=== PATIENT | male | born 1945 | race Caucasian/White ===

== ENCOUNTER 2023-05-04 12:59 | Outpatient (OUT) | payer MEDICARE, SELFPAY | END 2023-05-04 13:00 | LOC: WC 13:00 | PROVIDERS: PCP Family Medicine; Visit Provider Physician Assistant | DX: R60.0 Localized edema (principal); L97.321 Non-pressure chronic ulcer of left ankle limited to breakdown of skin; L97.512 Non-pressure chronic ulcer of other part of right foot with fat layer exposed; I87.2 Venous insufficiency (chronic) (peripheral); G82.22 Paraplegia, incomplete; Z99.81 Dependence on supplemental oxygen; Z99.3 Dependence on wheelchair; I10 Essential (primary) hypertension; E78.5 Hyperlipidemia, unspecified; L97.311 Non-pressure chronic ulcer of right ankle limited to breakdown of skin; L97.511 Non-pressure chronic ulcer of other part of right foot limited to breakdown of skin | CPT/HCPCS: 29580 ==

== ENCOUNTER 2023-06-08 10:40 | Outpatient (OUT) | payer MEDICARE, SELFPAY | END 2023-06-08 10:41 | disposition home or self-care (01) | LOC: WC 10:40 | PROVIDERS: PCP Family Medicine; Visit Provider Physician Assistant | DX: L97.311 Non-pressure chronic ulcer of right ankle limited to breakdown of skin (principal) | CPT/HCPCS: 29580 ==

== ENCOUNTER 2023-07-13 10:41 | Outpatient (OUT) | payer MEDICARE, SELFPAY | END 2023-07-13 10:42 | disposition home or self-care (01) | LOC: WC 10:42 | PROVIDERS: PCP Family Medicine; Visit Provider Physician Assistant | DX: L97.311 Non-pressure chronic ulcer of right ankle limited to breakdown of skin (principal); I87.312 Chronic venous hypertension (idiopathic) with ulcer of left lower extremity; L97.321 Non-pressure chronic ulcer of left ankle limited to breakdown of skin; L97.512 Non-pressure chronic ulcer of other part of right foot with fat layer exposed | CPT/HCPCS: 29580 ==

== ENCOUNTER 2023-08-11 11:26 | Outpatient (OUT) | payer MEDICARE, SELFPAY | END 2023-08-11 11:27 | disposition home or self-care (01) | LOC: WC 11:26 | PROVIDERS: PCP Family Medicine; Visit Provider Podiatrist Foot & Ankle Surgery | DX: I87.312 Chronic venous hypertension (idiopathic) with ulcer of left lower extremity (principal); L97.321 Non-pressure chronic ulcer of left ankle limited to breakdown of skin; L97.311 Non-pressure chronic ulcer of right ankle limited to breakdown of skin; L97.512 Non-pressure chronic ulcer of other part of right foot with fat layer exposed | CPT/HCPCS: 11042; 29580; A6199 ==

== ENCOUNTER 2023-09-07 15:29 | Outpatient (OUT) | payer MEDICARE, SELFPAY | END 2023-09-07 15:30 | disposition home or self-care (01) | LOC: WC 15:30 | PROVIDERS: PCP Family Medicine; Visit Provider Physician Assistant | DX: L97.311 Non-pressure chronic ulcer of right ankle limited to breakdown of skin (principal); R60.0 Localized edema; L97.321 Non-pressure chronic ulcer of left ankle limited to breakdown of skin; L97.512 Non-pressure chronic ulcer of other part of right foot with fat layer exposed | CPT/HCPCS: 29580 ==

== ENCOUNTER 2023-10-05 10:32 | Outpatient (OUT) | payer MEDICARE, SELFPAY | END 2023-10-05 10:33 | disposition home or self-care (01) | LOC: WC 10:32 | PROVIDERS: PCP Family Medicine; Visit Provider Physician Assistant | DX: I87.312 Chronic venous hypertension (idiopathic) with ulcer of left lower extremity (principal); L97.321 Non-pressure chronic ulcer of left ankle limited to breakdown of skin; L97.311 Non-pressure chronic ulcer of right ankle limited to breakdown of skin; L97.512 Non-pressure chronic ulcer of other part of right foot with fat layer exposed | CPT/HCPCS: 29580 ==

== ENCOUNTER 2023-11-02 11:03 | Outpatient (OUT) | payer MEDICARE, SELFPAY | END 2023-11-02 11:04 | disposition home or self-care (01) | LOC: WC 11:03 | PROVIDERS: PCP Family Medicine; Visit Provider Physician Assistant | DX: I87.312 Chronic venous hypertension (idiopathic) with ulcer of left lower extremity (principal); L97.321 Non-pressure chronic ulcer of left ankle limited to breakdown of skin; L97.311 Non-pressure chronic ulcer of right ankle limited to breakdown of skin; L97.512 Non-pressure chronic ulcer of other part of right foot with fat layer exposed; L89.621 Pressure ulcer of left heel, stage 1 | CPT/HCPCS: 29580 ==

== ENCOUNTER 2023-12-07 10:43 | Outpatient (OUT) | payer MEDICARE, SELFPAY ==
--- OUTSIDE RECORDS SUMMARY | 2023-12-07 10:55 | XMS_ITS | CCD ---
Author Name Unknown Address [address] [facility] [address] [place] [address] Organization [facility] Care Team Providers Care Senior Data Architect Name Role Phone SILVANA WETZEL Admitting Unavailable SILVANA WETZEL Attending Unavailable REQUEST, NONE LISTED Primary Care Unavaila ble DAMARI, SILVANA Chowdhury Admitting Unavailable HIGHLJESI, SILVANA Chowdhury Attending Unavailable REQUEST, DR BECERRIL LISTED Primary Care Unavaila ble DAMARI, SILVANA Chowdhury Admitting Unavailable DAMARI, SILVANA Chowdhury Attending Unavailable REQUEST, NONE LISTED Primary Care Unavaila brandon WETZEL, SILVANA Chowdhury Admitting Unavailable DAMARI, SILVANA Chowdhury Attending Unavailable REQUEST, NONE LISTED Primary Care Unavaila Eliel Christianson Consulting Unavailable HIGHLSILVANA DENNISON Consulting Unavailable SILVANA WETZEL Admitting Unavailable REQUEST, NONE LISTED Primary Care Unavaila ble DAMARI, SILVANA Chowdhury Attending Unavailable HIGHLJESI, SILVANA Chowdhury Attending Unavailable DAMARI, SILVANA Chowdhury Admitting Unavailable REQUEST, NONE LISTED Primary Care Unavaila brandon WETZEL, SILVANA Chowdhury Admitting Unavailable REQUEST, DR BECERRIL LISTED Primary Care Unavaila SILVANA Cobb Attending Unavailable TATO YANG Admitting Unavailable CELIATATO BALTAZAR Attending Unavailable MISC, DR RODRIGUEZ Primary Care Unavailable TATO YANG Consulting Unavailable SILVANA WETZEL Attending Unavailable SILVANA WETZEL Admitting Unavailable REQUEST, NONE LISTED Primary Care Unavaila ble DAMARI, SILVANA Chowdhury Admitting Unavailable REQUEST, NONE LISTED Primary Care Unavaila ble DAMARI, SILVANA Chowdhury Attending Unavailable HIGHLJESI, SILVANA Chowdhury Admitting Unavailable DAMARI, SILVANA Chowdhury Attending Unavailable REQUEST, NONE LISTED Primary Care Unavaila brandon WETZEL, SILVANA Chowdhury Admitting Unavailable REQUEST, NONE LISTED Primary Care Unavaila ble DAMARI, SILVANA Chowdhury Attending Unavailable DAMARI, SILVANA Chowdhury Attending Unavailable HIGHLJESI, SILVANA Chowdhury Admitting Unavailable REQUEST, NONE LISTED Primary Care Unavaila brandon WETZEL, SILVANA Chowdhury Attending Unavailable SILVANA WETZEL Admitting Unavailable REQUEST, NONE LISTED Primary Care Unavaila ble SILVANA WETZEL Attending SILVANA Govea Admitting Unavailable REQUEST, NONE LISTED Primary Care SILVANA Buck Attending SILVANA Govea Admitting Unavailable REQUEST, NONE LISTED Primary Care Popeye taylor Allergies Allergy Classification Reported Allergen(s) Allergy Type Date of Onset Reaction(s) Facility (2 sources) Adhesive agent Drug allergy (disorder) [facility] [place] Repository Problems Active Problems Problem Classification Problem Date Documented Da te Episodic/Chronic Chronic ulcer of skin (16 sources) Non-pressure chronic ulcer of left ankle limited to breakdown of skin; Translations: [Non-pressure chronic ulcer of other part of right foot with fat layer exposed] Onset: 05-05-2022 Chronic Disorders of lipid metabolism (1 source) Mixed hyperlipidemia; Translations: [MIXED HYPERLIPIDEMIA] Onset: 01-23-2023 Chronic Essential hypertension (1 source) Essential (primary) hypertension; Translations: [ESSENTIAL PRIMARY HYPERTENSION] Onset: 01-23-2023 Chronic Other diseases of veins and lymphatics (1 source) Chronic venous hypertension (idiopathic) with ulcer of left lower extremity; Translations: [CHRON VENOUS HTN W/ULCER LT LW EXT] Onset: 03-25-2023 Chronic Other diseases of veins and lymphatics (1 source) Venous insufficiency (chronic) (peripheral); Translations: [VENOUS INSUFF CHRONIC PERIPHERAL] Onset: 01-23-2023 Episodic Paralysis (1 source) Paraplegia, incomplete; Translations: [PARAPLEGIA INCOMPLETE] Onset: 01-23-2023 Chronic Peripheral and visceral atherosclerosis (1 source) Peripheral vascular disease, unspecified; Translations: [PERIPHERAL VASCULAR DISEASE UNS] Onset: 01-04-2023 Chronic Residual codes; unclassified (1 source) Dependence on wheelchair; Translations: [DEPENDENCE ON WHEELCHAIR] Onset: 01-23-2023 Chronic Residual codes; unclassified (5 sources) Localized edema; Translations: [LOCALIZED EDEMA] Onset: 01-23-2023 Episodic Respiratory failure; insufficiency; arrest (adult) (1 source) Dependence on supplemental oxygen; Translations: [DEPENDENCE ON SUPPLEMENTAL OXYGEN] Onset: 11-06-2022 Chronic Past or Other Problems Problem Classification Problem Date Documented Da te Episodic/Chronic Other circulatory disease (4 sources) Other specified symptoms and signs involving the circulatory and respiratory systems; Translations: [OTH SPEC SX SIGNS INVLV CIRC RS] Onset: 01-01-2023 Episodic Other connective tissue disease (1 source) Pain in right foot; Translations: [PAIN IN RIGHT FOOT] Onset: 06-05-2022 Episodic Other skin disorders (1 source) Personal history of diseases of the skin and subcutaneous tissue; Translations: [PERS HX DZ SKIN AND SUBCUTANEOUS TISSUE] Onset: 11-06-2022 Episodic Encounters Encounter Date Encounter Type Care Provider Facility Start: 04-07-2023 End: 04-08-2023 ambulatory SILVANA D HIGHLANDER Facility:[facility] Start: 03-16-2023 End: 03-17-2023 ambulatory PETER D HIGHLANDER Facility:[facility] Start: 02-13-2023 End: 02-14-2023 ambulatory SILVANA D HIGHLANDER Facility:[facility] Start: 01-12-2023 End: 01-13-2023 ambulatory PETER D HIGHLANDER Facility:[facility] Start: 01-01-2023 End: 01-02-2023 ambulatory TATO YANG Facility:[facility] Start: 12-22-2022 End: 12-23-2022 ambulatory SILVANA D HIGHLANDER Facility:[facility] Start: 11-17-2022 End: 11-18-2022 ambulatory PETER D HIGHLANDER Facility:[facility] Start: 10-21-2022 End: 10-22-2022 ambulatory PETER D HIGHLANDER Facility:[facility] Start: 09-30-2022 End: 10-01-2022 ambulatory PETER D HIGHLANDER Facility:[facility] Start: 09-08-2022 End: 09-09-2022 ambulatory PETER D HIGHLANDER Facility:[facility] Start: 08-12-2022 End: 08-13-2022 ambulatory PETER D HIGHLANDER Facility:[facility] Start: 07-29-2022 End: 07-30-2022 ambulatory PETER D HIGHLANDER Facility:[facility] Start: 07-18-2022 End: 07-19-2022 ambulatory PETER D HIGHLANDER Facility:[facility] Start: 06-17-2022 End: 06-18-2022 ambulatory PETER D HIGHLANDER Facility:[facility] Start: 05-26-2022 End: 05-27-2022 ambulatory PETER D HIGHLANDER Facility:[facility] Start: 05-05-2022 End: 05-06-2022 ambulatory PETER D HIGHLANDER Facility:[facility] Payers Date Payer Category Payer Unknown [id number] 1945 Unknown [id number] 2.16.84 [id number] 1945 Unknown [id number] 2.16.84 [id number] 1945 Unknown [id number] 2.16.84 0.1.164388.3.579.2.593 1945 Unknown [id number] 2.16.84 0.1.947938.3.579.2.593 1945 Unknown [id number] 2.16.84 0.1.462271.3.579.2.593 1945 Unknown [id number] 2.16.84 0.1.317991.3.579.2.593 1945 Unknown [id number] 2.16.84 0.1.405090.3.579.2.593 1945 Unknown [id number] 2.16.84 0.1.722569.3.579.2.593 1945 Unknown [id number] 2.16.84 0.1.309971.3.579.2.593 1945 Unknown [id number] 2.16.84 0.1.553051.3.579.2.593 1945 Unknown [id number] 2.16.84 0.1.877712.3.579.2.593 1945 Unknown [id number] 2.16.84 0.1.732634.3.579.2.593 1945 Unknown [id number] 2.16.84 0.1.913594.3.579.2.593 1945 Unknown [id number] 2.16.84 0.1.964760.3.579.2.593 1945 Unknown [id number] 2.16.84 0.1.583163.3.579.2.593 1945 Unknown [id number] 2.16.84 0.1.241451.3.579.2.593 Clinical Note 05-27-2022 Note Date & Type Note Facility 05-27-2022 Note PROCEDURE: XR FOOT R T MIN 3 VIEWS COMPARISON: 06/10/2021 HISTORY: Pain in right foot FINDINGS: BONES:Interval amputation of the second toe at the metatarsophalangeal joint. There is been marked interval progression of a permeative appearance of the visualized bones. Enthesopathic spurring of the calcaneus. SOFT TISSUES:Diffuse soft tissue swelling. EFFUSION:None visible. OTHER: Negative. 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 This clinical summary was aggregated from multiple sources. Caution should be exercised in using it in the provision of clinical care. This summary normalizes information from multiple sources, and as a consequence, information in this document may materially change the coding, format and clinical context of patient data. In addition, data may be omitted in some cases. CLINICAL DECISIONS SHOULD BE BASED ON THE PRIMARY CLINICAL RECORDS. [facility] [email or web address] provides no warranty or guarantee of the accuracy or completeness of information in this document.
== END 2023-12-07 10:44 | disposition home or self-care (01) ==
LOC: WC 10:44
PROVIDERS: PCP Family Medicine; Visit Provider Physician Assistant
DX: L97.321 Non-pressure chronic ulcer of left ankle limited to breakdown of skin (principal); L97.311 Non-pressure chronic ulcer of right ankle limited to breakdown of skin; L97.512 Non-pressure chronic ulcer of other part of right foot with fat layer exposed
CPT/HCPCS: 29580

== ENCOUNTER 2024-01-04 11:19 | Outpatient (OUT) | payer MEDICARE, SELFPAY ==
--- NOTE | 2024-01-04 | XR_ITS ---
The [address] [address] Patient Name: ELPIDIO LEI MRN: [id number] date: 1945 Sex: M Assigned Patient Location: Current Patient Location: Accession/Order Number: [id number] Exam Date: 01/04/2024 11:45 Report Date: 01/05/2024 10:39 At the request of: TATO YANG Procedure: XR ankle RT min 3V PROCEDURE: XR ankle RT min 3V HISTORY: RIGHT ANKLE PAIN ; wound on lateral side of right ankle COMPARISON: XR ankle bilateral 04/02/2021 FINDINGS: BONES:No fracture, dislocation, cortical destruction, or periosteal reaction. SOFT TISSUES:Mild soft tissue swelling surrounding the ankle. EFFUSION:None visible. OTHER: Negative. XR/XR ankle RT min 3V IMPRESSION: 1. Stable degenerative changes. 2. No acute abnormality or suspicious findings to suggest osteomyelitis. Electronically authenticated by: FRIEDA SCHMIDT Date: 01/05/2024 10:39
--- OUTSIDE RECORDS SUMMARY | 2024-01-04 11:24 | XMS_ITS | CCD ---
Author Name Unknown Address [address] [place] [id number] Organization [facility] Care Team Providers Care Garment Sewer Hand Name Role Phone SILVANA WETZEL Admitting Unavailable SILVANA WETZEL Attending Unavailable REQUEST, NONE LISTED Primary Care Unavaila ble DAMARI, SILVANA Chowdhury Admitting Unavailable DAMARI, SILVANA Chowdhury Attending Unavailable REQUEST, NONE LISTED Primary Care Unavaila brandon WETZEL, SILVANA Chowdhury Admitting Unavailable DAMARI, SILVANA Chowdhury Attending Unavailable REQUEST, NONE LISTED Primary Care Unavaila brandon WETZEL, SILVANA Chowdhury Admitting Unavailable HIGHLJESI, SILVANA Chowdhury Attending Unavailable REQUEST, NONE LISTED Primary Care Unavaila Eliel Christianson Consulting Unavailable HIGHLJESI, SILVANA Chowdhury Consulting Unavailable DAMARI, SILVANA Chowdhury Admitting Unavailable REQUEST, NONE LISTED Primary Care Unavaila brandon WETZEL, SILVANA Chowdhury Attending Unavailable DAMARI, SILVANA Chowdhury Attending Unavailable DAMARI, SILVANA Chowdhury Admitting Unavailable REQUEST, NONE LISTED Primary Care Unavaila brandon WETZEL, SILVANA Chowdhury Admitting Unavailable REQUEST, NONE LISTED Primary Care Unavaila SILVANA Cobb Attending Unavailable TATO YANG Admitting Unavailable TATO YANG Attending Unavailable MISC, DR RODRIGUEZ Primary Care Unavailable TATO YANG Consulting Unavailable SILVANA WETZEL Attending Unavailable SILVANA WETZEL Admitting Unavailable REQUEST, NONE LISTED Primary Care Unavaila brandon WETZEL, SILVANA Chowdhury Admitting Unavailable REQUEST, NONE LISTED Primary Care Unavaila brandon WETZEL, SILVANA Chowdhury Attending Unavailable DAMARI, SILVANA Chowdhury Admitting Unavailable ADMARI, SILVANA Chowdhury Attending Unavailable REQUEST, NONE LISTED Primary Care Unavaila brandon WETZEL, SILVANA Chowdhury Admitting Unavailable REQUEST, NONE LISTED Primary Care Unavaila ble DAMARI, SILVANA Chowdhury Attending Unavailable DAMARI, SILVANA Chowdhury Attending Unavailable HIGHLJESI, SILVANA Chowdhury Admitting Unavailable REQUEST, NONE LISTED Primary Care Unavaila SILVANA Cobb Attending Unavailable SILVANA WETZEL Admitting Unavailable REQUEST, NONE LISTED Primary Care SILVANA Buck Attending SILVANA Govea Admitting Unavailable REQUEST, NONE LISTED Primary Care SILVANA Buck Attending Unavailable SILVANA WETZEL Admitting Unavailable REQUEST, NONE LISTED Primary Care Popeye Cole MD, Ines Primary Care Provider João CRUZ, Suzi Unavailable Allergies Allergy Classification Reported Allergen(s) Allergy Type Date of Onset Reaction(s) Facility (2 sources) Adhesive agent Drug allergy (disorder) [facility] Repository Medications Current Medications Medication Drug Class(es) Dates Sig (Normalized) Sig (Original) amLODIPine 5 mg oral tablet (1 source) Dihydropyridine Calcium Channel Sara Start: 08-21-2023 take 1 tablet by mouth once daily amLODIPine (Norvasc) 5 MG tablet Indications: Primary hypertension (CMS/HCC) TAKE ONE TABLET BY MOUTH DAILY 90 tablet 2 08/21/2023 Active ascorbic acid 250 mg chewable tablet (1 source) Vitamin C ascorbic acid (Vitamin C) 250 MG chewable tablet 1 (one) time each day at the same time. 0 Active aspirin 81 mg delayed release oral tablet (1 source) Platelet Aggregation Inhibitor, Nonsteroidal Anti-inflammatory Drug aspirin 81 MG EC tablet 1 (one) time each day at the same time. 0 Active carvedilol 6.25 mg oral tablet (1 source) alpha-Adrenergic Sara, beta-Adrenergic Sara Start: 11-24-2023 take 1 tablet by mouth twice daily carvedilol (Coreg) 6.25 MG tablet Indications: Primary hypertension (CMS/HCC) TAKE ONE TABLET BY MOUTH TWICE A DAY 180 tablet 3 11/24/2023 Active citalopram 40 mg oral tablet (1 source) Serotonin Reuptake Inhibitor Start: 08-21-2023 take 1 tablet by mouth once daily citalopram (CeleXA) 40 MG tablet Indications: 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) TAKE ONE TABLET BY MOUTH DAILY 90 tablet 2 08/21/2023 Active collagenase 0.25 unt/mg topical ointment (1 source) Collagen-specific Enzyme Start: 06-05-2022 Santyl 250 UNIT/GM ointment ferrous sulfate 325 mg oral tablet (1 source) Start: 08-31-2023 take 1 tablet by mouth once daily ferrous sulfate (FeroSul) 325 (65 Fe) MG tablet Indications: 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 TAKE ONE TABLET BY MOUTH DAILY 90 tablet 3 08/31/2023 Active furosemide 20 mg oral tablet (1 source) Loop Diuretic Start: 08-21-2023 take 2 tablets by mouth once daily furosemide (Lasix) 20 MG tablet Indications: Acute bilateral venous stasis dermatitis TAKE TWO TABLETS BY MOUTH DAILY 180 tablet 2 08/21/2023 Active ibuprofen 200 mg oral tablet (1 source) Nonsteroidal Anti-inflammatory Drug take 1 tablet by mouth once daily at mealtime as needed ibuprofen 200 MG tablet 1 tablet with food or milk as needed Orally pt taking daily 0 Active Multiple Vitamin (MULTIVITAMIN ADULT PO) (1 source) Multiple Vitamin (MULTIVITAMIN ADULT PO) 1 (one) time each day at the same time. 0 Active omeprazole 40 mg delayed release oral capsule (1 source) Proton Pump Inhibitor Start: 08-21-2023 omeprazole (PriLOSEC) [address] capsule Indications: Gastroesophageal reflux disease, unspecified whether esophagitis present TAKE ONE CAPSULE BY MOUTH DAILY 30 MINUTES BEFORE MORNING MEAL 90 capsule 2 08/21/2023 Active potassium chloride 20 meq extended release oral tablet (1 source) Start: 08-31-2023 take 1 tablet by mouth once daily at mealtime potassium chloride CR (K-Tab) 20 MEQ ER tablet Indications: Hypokalemia TAKE ONE TABLET BY MOUTH DAILY WITH FOOD 90 tablet 3 08/31/2023 Active rosuvastatin calcium 10 mg oral tablet (1 source) HMG-CoA Reductase Inhibitor Start: 03-03-2023 rosuvastatin (Crestor) 10 MG tablet 1 (one) time each day at the same time. 0 03/03/2023 Active zinc gluconate 50 mg oral tablet (1 source) zinc gluconate 5 0 MG tablet 1 (one) time each day at the same time. 0 Active Problems Active Problems Problem Classification Problem Date Documented Date Episodic/Chronic Chronic ulcer of skin (20 sources) Non-pressure chronic ulcer of left ankle limited to breakdown of skin; Translations: [Non-pressure chronic ulcer of other part of right foot with fat layer exposed] Onset: 05-05-2022 Chronic Coronary atherosclerosis and other heart disease (1 source) Coronary arteriosclerosis; Translations: [Atherosclerotic heart disease of [place] coronary artery without angina pectoris] Onset: 06-08-2023 06-08-2023 Chronic Deficiency and other anemia (1 source) Pancytopenia; Translations: [Other pancytopenia] Onset: 06-08-2023 06-08-2023 Chronic Disorders of lipid metabolism (2 sources) Mixed hyperlipidemia; Translations: [Mixed hyperlipidemia] Onset: 01-23-2023 06-08-2023 Chronic Esophageal disorders (1 source) Gastroesophageal reflux disease; Translations: [Gastro-esophageal reflux disease without esophagitis] Onset: 06-08-2023 06-08-2023 Chronic Essential hypertension (2 sources) Essential (primary) hypertension; Translations: [Essential hypertension] Onset: 01-23-2023 08-26-2023 Chronic Mood disorders (2 sources) Recurrent major depressive episodes, mild ; Translations: [Major depressive disorder, recurrent, mild] Onset: 06-08-2023 06-08-2023 Chronic Open wounds of extremities (1 source) Amputated toe of right foot; Translations: [Complete traumatic amputation of one right lesser toe, initial encounter] Onset: 06-08-2023 06-08-2023 Chronic Other acquired deformities (1 source) Acquired scoliosis; Translations: [Other secondary scoliosis, thoracolumbar region] Onset: 06-08-2023 06-08-2023 Chronic Other diseases of bladder and urethra (1 source) Neurogenic bladder; Translations: [Neuromuscular dysfunction of bladder, unspecified] Onset: 06-08-2023 06-08-2023 Chronic Other diseases of veins and lymphatics (1 source) Chronic venous hypertension (idiopathic) with ulcer of left lower extremity; Translations: [CHRON VENOUS HTN W/ULCER LT LW EXT] Onset: 03-25-2023 Chronic Other diseases of veins and lymphatics (1 source) Venous ulcer of lower extremity due to chronic peripheral venous hypertension; Translations: [Chronic venous hypertension (idiopathic) with ulcer of unspecified lower extremity] Onset: 08-26-2023 08-26-2023 Chronic Other diseases of veins and lymphatics (1 source) Venous insufficiency (chronic) (peripheral); Translations: [VENOUS INSUFF CHRONIC PERIPHERAL] Onset: 01-23-2023 Episodic Other nutritional; endocrine; and metabolic disorders (1 source) Obese class I; Translations: [Obesity, unspecified] Onset: 06-08-2023 06-08-2023 Chronic Other nutritional; endocrine; and metabolic disorders (1 source) Alveolar hypoventilation; Translations: [Morbid (severe) obesity with alveolar hypoventilation] Onset: 02-11-2018 08-26-2023 Chronic Paralysis (3 sources) Paraplegia, incomplete; 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] Onset: 01-23-2023 06-08-2023 Chronic Peripheral and visceral atherosclerosis (1 source) Peripheral vascular disease, unspecified; Translations: [PERIPHERAL VASCULAR DISEASE UNS] Onset: 01-04-2023 Chronic Residual codes; unclassified (1 source) Dependence on wheelchair; Translations: [DEPENDENCE ON WHEELCHAIR] Onset: 01-23-2023 Chronic Residual codes; unclassified (1 source) 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; Translations: [Dependence on other enabling machines and devices] Onset: 06-08-2023 06-08-2023 Chronic Residual codes; unclassified (1 source) Dependence on wheelchair; Translations: [Dependence on wheelchair] Onset: 06-08-2023 06-08-2023 Chronic Residual codes; unclassified (1 source) Obstructive sleep apnea syndrome; Translations: [Obstructive sleep apnea (adult) (pediatric)] Onset: 06-08-2023 06-08-2023 Chronic Residual codes; unclassified (5 sources) Localized edema; Translations: [LOCALIZED EDEMA] Onset: 01-23-2023 Episodic Respiratory failure; insufficiency; arrest (adult) (3 sources) Dependence on supplemental oxygen; Translations: [Chronic hypoxemic respiratory failure] Onset: 11-06-2022 06-08-2023 Chronic Past or Other Problems Problem Classification Problem Date Documented Da te Episodic/Chronic Deficiency and other anemia (1 source) 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; Translations: [Other iron deficiency anemias] Onset: 06-08-2023 06-08-2023 Episodic Nutritional deficiencies (1 source) Iron deficiency; Translations: [Iron deficiency] Onset: 09-14-2014 08-26-2023 Episodic Other bone disease and musculoskeletal deformities (1 source) Osteopenia; Translations: [Other specified disorders of bone density and structure, multiple sites] Onset: 06-08-2023 06-08-2023 Episodic Other circulatory disease (4 sources) Other specified symptoms and signs involving the circulatory and respiratory systems; Translations: [OTH SPEC SX SIGNS INVLV CIRC RS] Onset: 01-01-2023 Episodic Other connective tissue disease (1 source) Pain in right foot; Translations: [PAIN IN RIGHT FOOT] Onset: 06-05-2022 Episodic Other diseases of veins and lymphatics (1 source) Stasis dermatitis; Translations: [Venous insufficiency (chronic) (peripheral)] Onset: 06-08-2023 06-08-2023 Episodic Other diseases of veins and lymphatics (1 source) Peripheral venous insufficiency; Translations: [Venous insufficiency (chronic) (peripheral)] Onset: 06-08-2023 06-08-2023 Episodic Other lower respiratory disease (1 source) Chronic respiratory insufficiency; Translations: [Other abnormalities of breathing] Onset: 06-08-2023 06-08-2023 Episodic Other lower respiratory disease (1 source) Restrictive lung disease; Translations: [Other disorders of lung] Onset: 06-08-2023 06-08-2023 Episodic Other nervous system disorders (1 source) Impaired cognition; Translations: [Other symptoms and signs involving cognitive functions and awareness] Onset: 06-08-2023 06-08-2023 Episodic Other nervous system disorders (1 source) Myoneural disorder; Translations: [Myoneural disorder, unspecified] Onset: 02-11-2018 08-26-2023 Episodic Other skin disorders (1 source) Personal history of diseases of the skin and subcutaneous tissue; Translations: [PERS HX DZ SKIN AND SUBCUTANEOUS TISSUE] Onset: 11-06-2022 Episodic Residual codes; unclassified (1 source) Edema; Translations: [Edema, unspecified] Onset: 08-26-2023 08-26-2023 Episodic Skin and subcutaneous tissue infections (1 source) Cellulitis of right lower limb; Translations: [Cellulitis of right lower limb] Onset: 12-05-2020 08-26-2023 Episodic Varicose veins of lower extremity (1 source) Venous stasis ulcer with edema of left lower leg; Translations: [Varicose veins of left lower extremity with ulcer of unspecified site] Onset: 10-06-2018 08-26-2023 Episodic Encounters Encounter Date Encounter Type Care Provider Facility Start: 01-01-2024 Telephone encounter Suzi pierre NP Work Phone: [facility] Start: 04-07-2023 End: 04-08-2023 ambulatory PETER D HIGHLANDER Facility:[facility] Start: 03-16-2023 End: 03-17-2023 ambulatory PETER D HIGHLANDER Facility:[facility] Start: 02-13-2023 End: 02-14-2023 ambulatory PETER D HIGHLANDER Facility:[facility] Start: 01-12-2023 End: 01-13-2023 ambulatory PETER D HIGHLANDER Facility:[facility] Start: 01-01-2023 End: 01-02-2023 ambulatory TATO YANG Facility:[facility] Start: 12-22-2022 End: 12-23-2022 ambulatory PETER D HIGHLANDER Facility:[facility] Start: 11-17-2022 End: 11-18-2022 [...] HIGHLANDER Facility:[facility] Start: 05-05-2022 End: 05-06-2022 ambulatory SILVANA D HIGHLANDER Facility:[facility] Procedures Date Procedure Procedure Detail Performing Clinician Start: 06-08-2023 H/O: colostomy Colostomy status Cassandra Moyer NP Work Phone: Plan of Treatment Date Care Activity Detail Author Start: 02-26-2024 Medicare Annual Well ness (AWV) Medicare Annual Wellness (AWV) [facility] Start: 02-23-2024 End: 02-23-2024 Patient encounter procedure 02/23/2024 1:00 PM EDT Office Visit [facility] [address] [facility] [place] [address] Suzi Moyer, AUTOMOTIVE BRAKE ADJUSTER [address] [place] [address] [facility] Immunizations Immunization Date Immunization Notes Care Provider Fa cility 08-26-2023 Influenza, High-dose Seasonal, Quadrivalent, Preservative Free Suzi Kampfer AUTOMOTIVE BRAKE ADJUSTER Work Phone: [facility] 08-27-2022 Influenza, High-dose Seasonal, Quadrivalent, Preservative Free Suzi Kampfer AUTOMOTIVE BRAKE ADJUSTER Work Phone: [facility] 08-27-2021 Influenza, High-dose Seasonal, Quadrivalent, Preservative Free Suzi Kampfer AUTOMOTIVE BRAKE ADJUSTER Work Phone: [facility] 11-22-2020 influenza, injectabl e, quadrivalent, contains preservative Suzi Kampfer AUTOMOTIVE BRAKE ADJUSTER Work Phone: [facility] 09-26-2019 Influenza, High-dose Seasonal, Quadrivalent, Preservative Free Suzi Kampfer AUTOMOTIVE BRAKE ADJUSTER Work Phone: [facility] 09-06-2018 Influenza, High-dose Seasonal, Quadrivalent, Preservative Free Suzi Kampfer AUTOMOTIVE BRAKE ADJUSTER Work Phone: [facility] Work Phone: 09-21-2017 Influenza, High-dose Seasonal, Quadrivalent, Preservative Free Suzi Kampfer AUTOMOTIVE BRAKE ADJUSTER Work Phone: [facility] 09-15-2016 Influenza, High-dose Seasonal, Quadrivalent, Preservative Free Suzi Kampfer AUTOMOTIVE BRAKE ADJUSTER Work Phone: [facility] 05-01-2016 pneumococcal polysaccharide vaccine, 23 valent Suzi Kampfer AUTOMOTIVE BRAKE ADJUSTER Work Phone: [facility] 09-10-2015 pneumococcal conjuga te vaccine, 13 valent Suzi Kampfer AUTOMOTIVE BRAKE ADJUSTER Work Phone: [facility] 11-30-2005 pneumococcal polysaccharide vaccine, 23 valent Suzi Kampfer AUTOMOTIVE BRAKE ADJUSTER Work Phone: [facility] Payers Date Payer Category Payer Medicare [employer] [id number] 2018-Present [address] [place] [address] [id number] 1959 Unknown [id number] 1945 Unknown [id number] 3 1947 Unknown [id number] [id number] 3 1945 Unknown [id number] [id number] 3 1947 Unknown [id number] [id number] 3 1947 Unknown [id number] [id number] 3 1945 Unknown [id number] 2.16.840.1.099864.3.579.2.59 3 1947 Unknown [id number] 2.16.840.1.865409.3.579.2.59 3 1947 Unknown [id number] 2.16.840.1.211657.3.579.2.59 3 1945 Unknown [id number] 2.16.840.1.136410.3.579.2.59 3 1945 Unknown [id number] 2.16.840.1.356844.3.579.2.59 3 1947 Unknown [id number] 2.16.840.1.343726.3.579.2.59 3 1947 Unknown [id number] 2.16.840.1.250182.3.579.2.59 3 1945 Unknown [id number] 2.16.840.1.626902.3.579.2.59 3 1947 Unknown [id number] 2.16.840.1.438736.3.579.2.59 3 1945 Unknown [id number] [id number] 3 1945 Unknown [id number] 3 Social History Date Type Detail Facility Start: 08-26-2023 Tobacco smoking stat [facility] Never smoked tobacco [facility] Start: 08-26-2023 Tobacco use and exposure Smokeless t obacco non-user [facility] Start: 12-21-2023 Alcohol intake Ex-drinker (finding) [facility] Start: 08-26-2023 History of Social function [facility] Start: 08-26-2023 Tobacco use panel [facility] Start: 08-25-2023 Alcohol Comment caffeine: 1-2 cups p er day [facility] Start: 1945 Sex Assigned At Not on file [facility] Telephone encounter Note 01-01-2024 Telephone Encounter - Elizabeth Bush - 01/01/2024 10:19 AM EST Note Date & Type Note Facility 01-01-2024 Telephone encount er Note [facility] has concerns with pt stating that he seems more tired and his edema is more than normal. She would like to have labs ordered. Please call [phone] with orders. [facility] Note 01-01-2024 Telephone Encounter - Elizabeth Bush - 01/01/2024 10:19 AM EST Note Date & Type Note Facility 01-01-2024 Miscellaneous Notes Formattin g of this note might be different from the original. [facility] has concerns with pt stating that he seems more tired and his edema is more than normal. She would like to have labs ordered. Please call [phone] with orders. documented in this encounter [facility] Clinical Note 05-27-2022 Note Date & Type [...] authenticated by: ELIEL WORTHINGTON Date: 2022-05-27 07:13 [facility] Summary Purpose Family History No Family History Records Found Advance Directives Documents on File Type Date Recorded Patient Pencil Inspector Expl anation Advance Directives and Living Will 09/15/2018 2001-05-13 Living Wi ll Advance Directives and Living Will 09/15/2018 2001-05-13 [facility] POA Additional Source Comments (unrecognized sect ion and content) No Status Records Found INFORMATION SOURCE (unrecogn ized section and content) DATE CREATED AUTHOR 04/08/[address] [facility] Care Teams (unrecognized sec tion and content) Garment Sewer Hand Relationship Specialty Start Date End Date Ines Cole MD [address] [place], [place] [id number] PCP - General Family Medicine 12/17/23 Suzi Moyer NP [address] [place], [place] [id number] Nurse Practitioner Family Medicine 12/17/23 FOR RECORDS PERTAINING TO PATIENTS WHO ARE [...] BE BASED ON THE PRIMARY CLINICAL RECORDS. [facility]. provides no warranty or guarantee of the accuracy or completeness of information in this document.
== END 2024-01-04 11:20 | disposition home or self-care (01) ==
LOC: WC 11:19
PROVIDERS: PCP Family Medicine; Visit Provider Physician Assistant
DX: S91.001A Unspecified open wound, right ankle, initial encounter (principal)
CPT/HCPCS: 29580; 73610

== ENCOUNTER 2024-01-19 11:11 | Outpatient (OUT) | payer MEDICARE, SELFPAY ==
--- OUTSIDE RECORDS SUMMARY | 2024-01-19 11:17 | XMS_ITS | CCD ---
Author Name Unknown Address [id number] [place] [address] Organization [facility] Care Team Providers Care Satellite Dish Installer Name Role Phone SILVANA WETZEL Admitting Unavailable SILVANA WETZEL Attending Unavailable REQUEST, NONE LISTED Primary Care Unavaila brandon WETZEL, SILVANA Chowdhury Admitting Unavailable DAMARI, SILVANA Chowdhury Attending Unavailable REQUEST, NONE LISTED Primary Care Unavaila SILVANA Cobb Admitting Unavailable SILVANA WETZEL Attending Unavailable REQUEST, NONE LISTED Primary Care Unavaila SILVANA Cobb Admitting Unavailable SILVANA WETZEL Attending Unavailable REQUEST, NONE LISTED Primary Care Unavaila Eliel Christianson Consulting Unavailable SILVANA WETZEL Consulting Unavailable SILVANA WETZEL Admitting Unavailable REQUEST, NONE LISTED Primary Care Unavaila SILVANA Cobb Attending Unavailable SILVANA WETZEL Attending Unavailable SILVANA WETZEL Admitting Unavailable REQUEST, NONE LISTED Primary Care Unavaila SILVANA Cobb Admitting Unavailable REQUEST, NONE LISTED Primary Care Unavaila SILVANA Cobb Attending Unavailable TATO YANG Admitting Unavailable TATO YANG Attending Unavailable MISC, DR RODRIGUEZ Primary Care Unavailable TATO YANG Consulting Unavailable SILVANA WETZEL Attending Unavailable SILVANA WETZEL Admitting Unavailable REQUEST, NONE LISTED Primary Care Unavaila SILVANA Cobb Admitting Unavailable REQUEST, NONE LISTED Primary Care Unavaila SILVANA Cobb Attending Unavailable SILVANA WETZEL Admitting Unavailable SILVANA WETZEL Attending Unavailable REQUEST, NONE LISTED Primary Care Unavaila SILVANA Cobb Admitting Unavailable REQUEST, NONE LISTED Primary Care Unavaila SILVANA Cobb Attending Unavailable SILVANA WETZEL Attending Unavailable SILVANA WETZEL Admitting Unavailable REQUEST, NONE LISTED Primary Care Unavaila SILVANA Cobb Attending Unavailable SILVANA WETZEL Admitting Unavailable REQUEST, NONE LISTED Primary Care SILVANA Buck Attending Unavailable SILVANA WETZEL Admitting Unavailable REQUEST, NONE LISTED Primary Care SILVANA Buck Attending Unavailable SILVANA WETZEL Admitting Unavailable REQUEST, NONE LISTED Primary Care Ines Perez MD Primary Care Provider João CRUZ, Marlene Unavailable MARLENE MOYER Attending Unavailable Allergies Allergy Classification Reported Allergen(s) Allergy Type Date of Onset Reaction(s) Facility (2 sources) Adhesive agent Drug allergy (disorder) [facility] Rep[facility] Medications Current Medications Medication Drug Class(es) Dates Sig (Normalized) Sig (Original) amLODIPine 5 mg oral tablet (3 sources) Dihydropyridine Calcium Channel Sara Start: 08-21-2023 take 1 tablet by mouth once daily amLODIPine (Norvasc) 5 MG tablet Indications: Primary hypertension (CMS/HCC) TAKE ONE TABLET BY MOUTH DAILY 90 tablet 2 08/21/2023 Active ascorbic acid 250 mg chewable tablet (3 sources) Vitamin C ascorbic acid (Vitamin C) 250 MG chewable tablet 1 (one) time each day at the same time. 0 Active aspirin 81 mg delayed release oral tablet (3 sources) Platelet Aggregation Inhibitor, Nonsteroidal Anti-inflammatory Drug aspirin 81 MG EC tablet 1 (one) time each day at the same time. 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) TAKE ONE TABLET BY MOUTH DAILY 90 tablet 2 08/21/2023 Active collagenase 0.25 unt/mg topical ointment (3 sources) Collagen-specific Enzyme Start: 06-05-2022 Santyl 250 UNIT/GM ointment ferrous sulfate 325 mg oral tablet (3 sources) Start: 08-31-2023 take 1 tablet by mouth once daily ferrous sulfate (FeroSul) 325 (65 Fe) MG tablet Indications: 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 TAKE ONE TABLET BY MOUTH DAILY 90 tablet 3 08/31/2023 Active furosemide 20 mg oral tablet (3 sources) Loop Diuretic Start: 08-21-2023 take 2 tablets by mouth once daily furosemide (Lasix) 20 MG tablet Indications: Acute bilateral venous stasis dermatitis TAKE TWO TABLETS BY MOUTH DAILY 180 tablet 2 08/21/2023 Active ibuprofen 200 mg oral tablet (3 sources) Nonsteroidal Anti-inflammatory Drug take 1 tablet by mouth once daily at mealtime as needed ibuprofen 200 MG tablet 1 tablet with food or milk as needed Orally pt taking daily 0 Active lysine 1000 mg oral tablet (2 sources) L-lysine 1000 MG tablet Take by mouth 0 Active Multiple Vitamin (MULTIVITAMIN ADULT PO) (3 sources) Multiple Vitamin (MULTIVITAMIN ADULT PO) 1 (one) time each day at the same time. 0 Active omeprazole 40 mg delayed release oral capsule (3 sources) Proton Pump Inhibitor Start: 08-21-2023 omeprazole (PriLOSEC) [address] capsule Indications: Gastroesophageal reflux disease, unspecified whether esophagitis present TAKE ONE CAPSULE BY MOUTH DAILY 30 MINUTES BEFORE MORNING MEAL 90 capsule 2 08/21/2023 Active potassium chloride 20 meq extended release oral tablet (3 sources) Start: 08-31-2023 take 1 tablet by mouth once daily at mealtime potassium chloride CR (K-Tab) 20 MEQ ER tablet Indications: Hypokalemia TAKE ONE TABLET BY MOUTH DAILY WITH FOOD 90 tablet 3 08/31/2023 Active rosuvastatin calcium 10 mg oral tablet (3 sources) HMG-CoA Reductase Inhibitor Start: 03-03-2023 rosuvastatin (Crestor) 10 MG tablet 1 (one) time each day at the same time. 0 03/03/2023 Active zinc gluconate 50 mg oral tablet (3 sources) zinc gluconate 5 0 MG tablet 1 [...] Chronic Coronary atherosclerosis and other heart disease (3 sources) Coronary arteriosclerosis; Translations: [Atherosclerotic heart disease of sycuan coronary artery without angina pectoris] Onset: 06-08-2023 06-08-2023 Chronic Deficiency and other anemia (3 sources) Pancytopenia; Translations: [Other pancytopenia] Onset: 06-08-2023 06-08-2023 Chronic Deficiency and other anemia (5 sources) 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; Translations: [Other iron deficiency anemias] Onset: 06-08-2023 06-08-2023 Episodic Disorders of lipid metabolism (4 sources) Mixed hyperlipidemia; Translations: [Mixed hyperlipidemia] Onset: 01-23-2023 06-08-2023 Chronic Esophageal disorders (3 sources) Gastroesophageal reflux disease; Translations: [Gastro-esophageal reflux disease without esophagitis] Onset: 06-08-2023 06-08-2023 Chronic Essential hypertension (6 sources) Essential (primary) hypertension; Translations: [Essential hypertension] Onset: 01-23-2023 08-26-2023 Chronic Malaise and fatigue (2 sources) Fatigue; Translations: [Other fatigue] 01-06-2024 Episodic Mood disorders (6 sources) Recurrent major depressive episodes, mild ; Translations: [Major depressive disorder, recurrent, mild] Onset: 06-08-2023 06-08-2023 Chronic Open wounds of extremities (3 sources) Amputated toe of right foot; Translations: [Complete traumatic amputation of one right lesser toe, initial encounter] Onset: 06-08-2023 06-08-2023 Chronic Other acquired deformities (3 sources) Acquired scoliosis; Translations: [Other secondary scoliosis, thoracolumbar region] Onset: 06-08-2023 06-08-2023 Chronic Other diseases of bladder and urethra (3 sources) Neurogenic bladder; Translations: [Neuromuscular dysfunction of bladder, unspecified] Onset: 06-08-2023 06-08-2023 Chronic Other diseases of veins and lymphatics (1 source) Chronic venous hypertension (idiopathic) with ulcer of left lower extremity; Translations: [CHRON VENOUS HTN W/ULCER LT LW EXT] Onset: 03-25-2023 Chronic Other diseases of veins and lymphatics (3 sources) Venous ulcer of lower extremity due to chronic peripheral venous hypertension; Translations: [Chronic venous hypertension (idiopathic) with ulcer of unspecified lower extremity] Onset: 08-26-2023 08-26-2023 Chronic Other diseases of veins and lymphatics (2 sources) Chronic peripheral venous hypertension with lower extremity complication; Translations: [Chronic venous hypertension (idiopathic) with ulcer of unspecified lower extremity] 01-08-2024 Chronic Other diseases of veins and lymphatics (1 source) Venous insufficiency (chronic) (peripheral); Translations: [VENOUS INSUFF CHRONIC PERIPHERAL] Onset: 01-23-2023 Episodic Other nervous system disorders (5 sources) Myoneural disorder; Translations: [Myoneural disorder, unspecified] Onset: 02-11-2018 08-26-2023 Episodic Other nutritional; endocrine; and metabolic disorders (3 sources) Obese class I; Translations: [Obesity, unspecified] Onset: 06-08-2023 06-08-2023 Chronic Other nutritional; endocrine; and metabolic disorders (3 sources) Alveolar hypoventilation; Translations: [Morbid (severe) obesity with alveolar hypoventilation] Onset: 02-11-2018 08-26-2023 Chronic Paralysis (11 sources) Paraplegia, incomplete; 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] Onset: 01-23-2023 06-08-2023 Chronic Peripheral and visceral atherosclerosis (1 source) Peripheral vascular disease, unspecified; Translations: [PERIPHERAL VASCULAR DISEASE UNS] Onset: 01-04-2023 Chronic Residual codes; unclassified (1 source) Dependence on wheelchair; Translations: [DEPENDENCE ON WHEELCHAIR] Onset: 01-23-2023 Chronic Residual codes; unclassified (3 sources) 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; Translations: [Dependence on other enabling machines and devices] Onset: 06-08-2023 06-08-2023 Chronic Residual codes; unclassified (3 sources) Dependence on wheelchair; Translations: [Dependence on wheelchair] Onset: 06-08-2023 06-08-2023 Chronic Residual codes; unclassified (5 sources) Obstructive sleep apnea syndrome; Translations: [Obstructive sleep apnea (adult) (pediatric)] Onset: 06-08-2023 06-08-2023 Chronic Residual codes; unclassified (5 sources) Localized edema; Translations: [LOCALIZED EDEMA] Onset: 01-23-2023 Episodic Respiratory failure; insufficiency; arrest (adult) (9 sources) Dependence on supplemental oxygen; Translations: [Chronic hypoxemic respiratory failure] Onset: 11-06-2022 06-08-2023 Chronic Skin and subcutaneous tissue infections (5 sources) Cellulitis of right lower limb; Translations: [Cellulitis of right lower limb] Onset: 12-05-2020 08-26-2023 Episodic Past or Other Problems Problem Classification Problem Date Documented Da te Episodic/Chronic Nutritional deficiencies (3 sources) Iron deficiency; Translations: [Iron deficiency] Onset: 09-14-2014 08-26-2023 Episodic Other bone disease and musculoskeletal deformities (3 sources) Osteopenia; Translations: [Other specified disorders of bone [...] Episodic Other diseases of veins and lymphatics (3 sources) Stasis dermatitis; Translations: [Venous insufficiency (chronic) (peripheral)] Onset: 06-08-2023 06-08-2023 Episodic Other diseases of veins and lymphatics (3 sources) Peripheral venous insufficiency; Translations: [Venous insufficiency (chronic) (peripheral)] Onset: 06-08-2023 06-08-2023 Episodic Other lower respiratory disease (3 sources) Chronic respiratory insufficiency; Translations: [Other abnormalities of breathing] Onset: 06-08-2023 06-08-2023 Episodic Other lower respiratory disease (3 sources) Restrictive lung disease; Translations: [Other disorders of lung] Onset: 06-08-2023 06-08-2023 Episodic Other nervous system disorders (3 sources) Impaired cognition; Translations: [Other symptoms and signs involving cognitive functions and awareness] Onset: 06-08-2023 06-08-2023 Episodic Other skin disorders (1 source) Personal history of diseases of the skin and subcutaneous tissue; Translations: [PERS HX DZ SKIN AND SUBCUTANEOUS TISSUE] Onset: 11-06-2022 Episodic Residual codes; unclassified (3 sources) Edema; Translations: [Edema, unspecified] Onset: 08-26-2023 08-26-2023 Episodic Varicose veins of lower extremity (3 sources) Venous stasis ulcer with edema of left lower leg; Translations: [Varicose veins of left lower extremity with ulcer of unspecified site] Onset: 10-06-2018 08-26-2023 Episodic Results Test Name Value Interpretation Reference Range Facil ity 25-hydroxyvitamin D3 [Mass/V ol]on 01-07-2024 Performing Organization Information Site ID: QPT Name: [facility] [address] Address: [address] [place] [address], [address] [place] [phone] Director: Maninder Alves MD [facility] CBC W Auto Differential pane l (Bld)on 01-07-2024 Basophils (Bld) [#/Vol] 32 10*3/uL [facility] Basophils/100 WBC (Bld) 0.8 % [facility] Eosinophils (Bld) [#/Vol] 160 10*3/uL [facility] Eosinophils/100 WBC (Bld) 4.0 % [facility] Erythrocyte distribution width (RBC) [Ratio] 12.6 % 11.0 - 15.0 % [facility] Hematocrit (Bld) [Volume fraction] 37.7 % Low 38.5 - 50.0 % [facility] Healthcar e Hemoglobin (Bld) [Mass/Vol] 12.0 g/dL Low 13.2 - 17.1 g/dL [facility] Lymphocytes (Bld) [#/Vol] 664 10*3/uL Low [facility] Lymphocytes/100 WBC (Bld) 16.6 % [facility] MCH (RBC) [Entitic mass] 29.8 pg 27.0 - 33.0 pg [facility] MCHC (RBC) [Mass/Vol] 31.8 g/dL Low 32.0 - 36.0 g/dL [facility] MCV (RBC) [Entitic vol] 93.5 fL 80.0 - 100.0 fL [facility] Monocytes (Bld) [#/Vol] 452 10*3/uL [facility] Healthcare Monocytes/100 WBC (Bld) 11.3 % [facility] Neutrophils (Bld) [#/Vol] 2692 10*3/uL [facility] Neutrophils/100 WBC (Bld) 67.3 % [facility] Platelet mean volume (Bld) [Entitic vol] 9.9 fL 7.5 - 12.5 fL [facility] Platelets (Bld) [#/Vol] 179 10*3/uL [facility] RBC (Bld) [#/Vol] 4.03 10*6/uL Low [facility] WBC (Bld) [#/Vol] 4.0 10*3/uL [facility] H ealthcare Laboratory - Chemistry and C hemistry - challengeon 01-07-2024 Albumin [Mass/Vol] 3.9 g/dL 3.6 - 5.1 g/dL [facility] Albumin/Globulin [Mass ratio] 1.1 {ratio} [facility] ALP [Catalytic activity/Vol] 76 U/L 35 - 144 U/L [facility] ALT [Catalytic activity/Vol] 14 U/L 9 - 46 U/L [facility] AST [Catalytic activity/Vol] 18 U/L 10 - 35 U/L [facility] Bilirubin [Mass/Vol] 0.4 mg/dL 0.2 - 1.2 mg/dL [facility] Calcium [Mass/Vol] 9.0 mg/dL 8.6 - 10. 3 mg/dL [facility] Chloride [Moles/Vol] 103 mmol/L 98 - 110 mmol/L [facility] CO2 [Moles/Vol] 29 mmol/L 20 - 32 mmol/L [facility] Creatinine [Mass/Vol] 0.61 mg/dL Low 0.70 - 1.28 mg/dL [facility] GFR/1.73 sq M.predicted among non-blacks MDRD (S/P/Bld) [Vol rate/Area] 100 mL/min/{1.73_m2} > OR = 60 mL/min/1.73m2 [facility] Globulin (S) [Mass/Vol] 3.4 g/dL [facility] Glucose [Mass/Vol] 90 mg/dL 65 - 99 mg/dL [facility] Comment on above: Fasting reference interval Potassium [Moles/Vol] 4.1 mmol/L 3.5 - 5.3 mmol/L [facility] Protein [Mass/Vol] 7.3 g/dL 6.1 - 8.1 g/dL NO [facility] Sodium [Moles/Vol] 143 mmol/L 135 - 146 mmol/L [facility] TSH Qn 1.54 m[IU]/L [facility] Urea nitrogen [Mass/Vol] 16 mg/dL 7 - 25 mg/dL [facility] Urea nitrogen/Creatinine [Mass ratio] 26 mg/mg High [facility] 25-hydroxyvitamin D3 [Mass/Vol] 36 ng/mL 30 - 100 ng/mL [facility] Comment on above: Vitamin D Status 25- [place] Vitamin D: Deficiency: <20 ng/mL Insufficiency: 20 - 29 ng/mL Optimal: > or = 30 ng/mL For 25-OH Vitamin D testing on patients on D2-supplementation and patients for whom quantitation of D2 and D3 fractions is required, the QuestAssureD(TM) 25-OH VIT D, (D2,D3), LC/MS/MS is recommended: order code 87181 (patients >2yrs). See Note 1 Note 1 For additional information, please refer to http://education.Tradoria/faq/WZC908 (This link is being provided for informational/ educational purposes only.) No Panel Informationon 01-07 Interpretation and review of laboratory results Abnormal [facility] Performing Organization Information Site ID: QPT Name: [facility] [address] [facility] Address: [address] [place] [phone] Director: Maninder Alves [facility] Sign[facility] Date Time Vital Sign Value Performing Clinician Kwan sutton 01-06-2024 13:04-0500 Body height 182.9 cm Marlene Moyer [employer] ADJUSTMENT COUNSELOR Work Phone: [facility] 01-06-2024 13:04-0500 Diastolic blood pressure 80 mm[Hg] Marlene Moyer SCHO[employer] ADJUSTMENT COUNSELOR Work Phone: [facility] 01-06-2024 13:04-0500 Heart rate 71 /min Marlene Moyer S[employer] ADJUSTMENT COUNSELOR Work Phone: [facility] 01-06-2024 13:04-0500 SaO2% (BldA) [Mass fraction] 93 % Marlene Moyer SCHO[employer] ADJUSTMENT COUNSELOR Work Phone: [facility] 01-06-2024 13:04-0500 Systolic blood pressure 118 mm[Hg] Marlene Moyer SCHOOL ADJUSTMENT COUNSELOR Work Phone: [facility] Healthcare Encounters Encounter Date Encounter Type Care Provider Facility Start: 01-06-2024 End: 01-07-2024 ambulatory MARLENE MATHURHANNAH Not Available Start: 01-06-2024 End: 01-06-2024 Office outpatient visit 25 minutes Marlene Moyer [employer] ADJUSTMENT COUNSELOR Work Phone: [facility] Comment on above: Cellulitis of right lower extremity (Primary Dx); Other fatigue; 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; EMMA treated with BiPAP; Primary hypertension (CMS/HCC); Non-pressure chronic ulcer of other part of right foot with other specified severity (L97.518); Chronic venous hypertension (idiopathic) with ulcer of unspecified lower extremity (I87.319); Myoneural disorder, unspecified (G70.9); 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); Chronic respiratory failure with hypoxia (J96.11); Paraplegia, incomplete (G82.22); Non-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 [place] [facility] Facility:H1 Start: 03-16-2023 End: 03-17-[address] [facility] [place] [facility] Facility:H1 Start: 02-13-2023 End: 02-14-2023 ambulatory SILVANA Chowdhury [facility] Facility:H1 Start: 01-12-2023 End: 01-13-2023 ambulatory SILVANA Chowdhury [facility] Facility:H1 Start: 01-01-2023 End: 01-02-2023 ambulatory TATOMED YANG Facility:H1 Start: 12-22-2022 End: 12-23-2022 ambulatory SILVANA Chowdhury [facility] Facility:H1 Start: 11-17-2022 End: 11-18-[address] [facility] [place] [facility] Facility:H1 Start: 10-21-2022 End: 10-22-2022 ambulatory SILVANA WETZEL Facility:H1 Start: 09-30-2022 End: 10-01-2022 ambulatory SILVANA WETZEL Facility:H1 Start: 09-08-2022 End: 09-09-2022 ambulatory SILVANA WETZEL Facility:H1 Start: 08-12-2022 End: 08-13-2022 ambulatory SILVANA WETZEL Facility:H1 Start: 07-29-2022 End: 07-30-2022 ambulatory SILVANA WETZEL Facility:H1 Start: 07-18-2022 End: 07-19-2022 ambulatory SILVANA WETZEL Facility:H1 Start: 06-17-2022 End: 06-18-2022 ambulatory SILVANA WETZEL Facility:H1 Start: 05-26-2022 End: 05-27-2022 ambulatory SILVANA WETZEL Facility:H1 Start: 05-05-2022 End: 05-06-2022 ambulatory SILVANA WETZEL Facility:H1 Procedures Date Procedure Procedure Detail Performing Clinician Start: 01-06-2024 Complete blood count with white cell differential, automated Marlene Moyer NP Work Phone: Start: 01-06-2024 End: 01-06-2024 Comprehensive metabolic panel Marlene Moyer NP Work Phone: Start: 01-06-2024 TSH W/REFLEX TO FT4 Praneeth Moyer [employer] ADJUSTMENT COUNSELOR Work Phone: Start: 06-08-2023 H/O: colostomy Colostomy status Cassandra Moyer NP Work Phone: H/O: colostomy 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) Marlene Moyer [employer] ADJUSTMENT COUNSELOR Work Phone: Plan of Treatment Date Care Activity Detail Author Start: 02-26-2024 Medicare Annual Well ness (AWV) Medicare Annual Wellness (AWV) [facility] Start: 02-23-2024 End: 02-23-2024 Patient encounter procedure 02/23/2024 1:00 PM EDT Office Visit [facility] [address] [place] [address] Marlene Moyer NP [address] [place] [address] [facility] Immunizations Immunization Date Immunization Notes Care Provider Fa cility 08-26-2023 Influenza, High-dose Seasonal, Quadrivalent, Preservative Free Marlene Kampfer [employer] AD[employer]MENT COUNSELOR Work Phone: [facility] 08-27-2022 Influenza, High-dose Seasonal, Quadrivalent, Preservative Free Marlene Kampfer [employer]CHOOL ADJUSTMENT COUNSELOR Work Phone: [facility] 08-27-2021 Influenza, High-dose Seasonal, Quadrivalent, Preservative Free Marlene Kampfer SCHOOL ADJUSTMENT COUNSELOR Work Phone: [facility] 11-22-2020 influenza, injectabl e, quadrivalent, contains preservative Marlene Kampfer SCHOOL ADJUSTMENT COUNSELOR Work Phone: [facility] 09-26-2019 Influenza, High-dose Seasonal, Quadrivalent, Preservative Free Marlene Kampfer [employer]CHOOL ADJUSTMENT COUNSELOR Work Phone: [facility] 09-06-2018 Influenza, High-dose Seasonal, Quadrivalent, Preservative Free Marlene Kampfer SCHOOL ADJUSTMENT COUNSELOR Work Phone: [facility] Work Phone: 09-21-2017 Influenza, High-dose Seasonal, Quadrivalent, Preservative Free Marlene Kampfer SCHOOL ADJUSTMENT COUNSELOR Work Phone: [facility] 09-15-2016 Influenza, High-dose Seasonal, Quadrivalent, Preservative Free Marlene Kampfer [employer]CHOOL ADJUSTMENT COUNSELOR Work Phone: [facility] 05-01-2016 pneumococcal polysaccharide vaccine, 23 valent Marlene Kampfer SCHO[employer] ADJUSTMENT COUNSELOR Work Phone: [facility] 09-10-2015 pneumococcal conjuga te vaccine, 13 valent Marlene Kampfer SCHOOL ADJUSTMENT COUNSELOR Work Phone: [facility] 11-30-2005 pneumococcal polysaccharide vaccine, 23 valent Marlene Kampfer SCHOOL ADJUSTMENT COUNSELOR Work Phone: [facility] Payers Date Payer Category Payer Medicare [employer] MEDICARE ADVANTAGE [facility] MEDICARE ADVANTAGE [id number] 2018-Present [id number] [place] [id number] 1959 Unknown [id number] 1945 Unknown [id number] [id number] 3 1947 Unknown [id number] 2.16.840.1.380156.3.579.2.59 3 1947 Unknown [id number] 2.16.840.1.049816.3.579.2.59 3 1947 Unknown [id number] 2.16.840.1.991638.3.579.2.59 3 1947 Unknown [id number] 2.16.840.1.162664.3.579.2.59 3 1947 Unknown [id number] 2.16.840.1.585223.3.579.2.59 3 1947 Unknown [id number] 2.16.840.1.580369.3.579.2.59 3 1947 Unknown [id number] 2.16.840.1.394829.3.579.2.59 3 1947 Unknown [id number] 2.16.840.1.064318.3.579.2.59 3 1947 Unknown [id number] 2.16.840.1.430870.3.579.2.59 3 1947 Unknown [id number] 2.16.840.1.817105.3.579.2.59 3 1947 Unknown [id number] 2.16.840.1.163719.3.579.2.59 3 1947 Unknown [id number] 2.16.840.1.301441.3.579.2.59 3 1947 Unknown [id number] 2.16.840.1.487099.3.579.2.59 3 1947 Unknown [id number] 2.16.840.1.637732.3.579.2.59 3 1947 Unknown [id number] 2.16.840.1.114698.3.579.2.59 3 1947 Unknown [id number] 2.16.840.1.998118.3.579.2.12 59 Social History Date Type Detail Facility Start: 08-26-2023 Tobacco smoking stat [facility] Never smoked tobacco [facility] Start: 08-26-2023 Tobacco use and exposure Smoke less tobacco non-user [facility] Start: 12-21-2023 End: 01-08-2024 Alcohol intake Ex-drinker (finding) [facility] Start: 08-26-2023 End: 01-01-2024 History of Social function [facility] Start: 08-26-2023 End: 01-01-2024 Tobacco use panel [facility] Start: 08-25-2023 Alcohol Comment caffeine: 1-2 cups per day [facility] Start: 1945 Sex Assigned At Not on file [facility] Within the last year , have you been afraid of your partner or ex-partner? Patient refused [facility] Are you now , , , , never or living with a partner? [facility] How often to you hav e a drink containing alcohol? Never [facility] The food that (I/we) bought just didn't last, and (I/we) didn't have money to get more. DK or Refused [facility] History of Present illness Narrative 01-06-2024 Marlene Moyer NP - 01/06/2024 1:00 PM EST Note Date & Type Note Facility 01-06-2024 History of Presen t illness Narrative Elpidio Lei is a 78 y.o. male presents with chief complaint of Establish Care, Cellulitis, and Follow-up HPI: Patient is here to establish care and to follow-up on cellulitis. He went to wound care yesterday, they gave citalopram. He states he goes to [facility] to check legs pressure and vein flow. He also has a follow up with wound care end of December. patient is not able to stand. Last took rosuvastatin last week. SUBJECTIVE: MEDICATIONS: Current Outpatient Medications Medication Instructions amLODIPine (Norvasc) 5 MG tablet TAKE ONE TABLET BY MOUTH DAILY ascorbic acid (Vitamin C) 250 MG chewable tablet Every 24 hours aspirin 81 MG EC tablet Every 24 hours carvedilol (COREG) 6.25 mg, Oral, 2 times daily citalopram (CeleXA) 40 MG tablet TAKE ONE TABLET BY MOUTH DAILY ferrous sulfate (FeroSul) 325 (65 Fe) MG tablet TAKE ONE TABLET BY MOUTH DAILY furosemide (Lasix) 20 MG tablet TAKE TWO TABLETS BY MOUTH DAILY ibuprofen 200 MG tablet 1 tablet with food or milk as needed Orally pt taking daily Multiple Vitamin (MULTIVITAMIN ADULT PO) Every 24 hours omeprazole (PriLOSEC) [address] capsule TAKE ONE CAPSULE BY MOUTH DAILY 30 MINUTES BEFORE MORNING MEAL potassium chloride CR (K-Tab) 20 MEQ ER tablet TAKE ONE TABLET BY MOUTH DAILY WITH FOOD rosuvastatin (Crestor) 10 MG tablet Every 24 hours Santyl 250 UNIT/GM ointment zinc gluconate 50 MG tablet Every 24 hours REVIEW OF SYMPTOMS: Review of Systems OBJECTIVE: Visit Vitals BP 118/80 (BP Location: Left arm, Patient Position: Sitting, BP Cuff Size: Large adult) Pulse 71 Ht 6' SpO2 93% BMI 33.91 kg/m Smoking Status Never BSA 2.4 m Physical Exam Vitals reviewed. HENT: Head: Normocephalic and atraumatic. Nose: Nose normal. Mouth/Throat: Mouth: Mucous membranes are moist. Eyes: Pupils: Pupils are equal, round, and reactive to light. Cardiovascular: Rate and Rhythm: Normal rate and regular rhythm. Pulses: Normal pulses. Heart sounds: Normal heart sounds. Pulmonary: Effort: Pulmonary effort is normal. Breath sounds: Normal breath sounds. Musculoskeletal: Cervical back: Normal range of motion and neck supple. Skin: General: Skin is warm and dry. Capillary Refill: Capillary refill takes less than 2 seconds. Findings: No rash. Comments: Kate boots to BLE Neurological: General: No focal deficit present. Mental Status: He is alert and oriented to person, place, and time. ASSESSMENT AND PLAN: Assessment/Plan Diagnoses and all orders for this visit: Cellulitis of right lower extremity -Continue abx. As prescribed. 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 Goal BP less then 130/80. Discussed heart healthy diet, increase fruits and vegetables, limit salt intake. Encouraged increase physical exercise, try to be as active as possible at least 150 mins per week. Importance of weight management with a goal BMI less then 27 discussed. Discussed complications of uncontrolled blood pressure. Patient instructed to monitor BP's 1-2 times a week, keep a log, and bring to next visit. Barriers to care and medication compliance discussed. Patient voices understanding of meds. 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 She would like to have labs ordered. Please call [phone] with orders. [facility] Healthcare Note 01-01-2024 Telephone Encounter - Elizabeth Bush - 01/01/2024 10:19 AM EST Note Date & Type Note Facility 01-01-2024 Miscellaneous Notes Formattin g of this note might be different from the original. Ana from [facility] has concerns with pt stating that he seems more tired and his edema is more than normal. She would like to have labs ordered. Please call [phone] with orders. 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) Chronic venous hypertension (idiopathic) with ulcer of unspecified lower extremity (I87.319) Myoneural disorder, 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) Chronic respiratory failure with hypoxia (J96.11) Paraplegia, 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) Cauda equina syndrome (G83.4) Cauda equina syndrome without mention of neurogenic bladder 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) Colostomy status documented in this encounter [facility] Summary Purpose Family History No Family History Records FoundNo Family History Records Found Advance Directives No Advanced Directives Records FoundDocuments on File Type Date Recorded Patient Bulk Clerk Expl anation Advance Directives and Living Will 09/15/2018 2001-05-13 Living Wi ll Advance Directives and Living Will 09/15/2018 2001-05-13 [facility] POA Additional Source Comments (unrecognized sect ion and content) No Status Records FoundNo Status Records Found INFORMATION SOURCE (unrecogn ized section and content) DATE CREATED AUTHOR 04/08/[address] [facility] DATE CREATED AUTHOR 'S ORGANIZ ATION 01/11/2024 [facility] dical Specialists EPIC Care Teams (unrecognized sec tion and content) Satellite Dish Installer Relationship Specialty Start Date End Date Ines Cole MD [address] [place] [address] PCP - General Family Medicine 12/17/23 Marlene Moyer NP [address] [place] [address] Nurse Practitioner Family Medicine 12/17/23 Satellite Dish Installer Relationship Specialty Start Date End Date Ines Cole MD [address] [place] [address] PCP - General Family Medicine 12/17/23 Marlene Moyer NP [address] [facility] [place] [address] Nurse Practitioner Family Medicine 12/17/23 Reason for Visit (unrecogniz ed section and content) Reason Comments Establish Care Cellulitis Follow-up FOR RECORDS PERTAINING TO PATIENTS WHO ARE [...] BE BASED ON THE PRIMARY CLINICAL RECORDS. [facility] User Replay [facility]. provides no warranty or guarantee of the accuracy or completeness of information in this document.
--- NOTE | 2024-01-19 12:30 | CA_ITS ---
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 Right: - Abnormal EDWARD - no TBI Left: - abnormal EDWARD - abnormal TBI Impression: - elevated indices consistent with calcified, noncompressible arterial cabrera, which may underestimate the degree of arterial disease. - findings nondiagnostic due to diffusely elevated indices. Electronically Signed On 01-19-2024 23:19:47 EST by DERIC ANDRADE
== END 2024-01-19 11:12 | disposition home or self-care (01) ==
LOC: CARD 11:12
PROVIDERS: PCP Family Medicine; Visit Provider Physician Assistant
DX: R09.89 Other specified symptoms and signs involving the circulatory and respiratory systems (principal)
CPT/HCPCS: 93923

== ENCOUNTER 2024-01-22 10:44 | Outpatient (OUT) | payer MEDICARE, SELFPAY ==
--- OUTSIDE RECORDS SUMMARY | 2024-01-22 10:48 | XMS_ITS | CCD ---
Author Name Unknown Address [address] [place] [address] Organization [facility] Care Team Providers Care Deputy Insurance Commissioner Name Role Phone SILVANA WETZEL Admitting Unavailable SILVANA WETZEL Attending Unavailable REQUEST, NONE LISTED Primary Care Unavaila brandon WETZEL, SILVANA Chowdhury Admitting Unavailable DAMARI, SILVANA Chowdhury Attending Unavailable REQUEST, NONE LISTED Primary Care Unavaila SILVANA Cobb Admitting Unavailable DAMARI, SILVANA Chowdhury Attending Unavailable [...] Attending Unavailable DAMARI, SILVANA Chowdhury Admitting Unavailable SILVANA WETZEL Attending Unavailable REQUEST, NONE LISTED Primary Care Unavaila ble DAMRAI, SILVANA Chowdhury Admitting Unavailable REQUEST, NONE LISTED Primary Care Unavaila ble SILVANA WETZEL Attending Unavailable DAMARI, SILVANA Chowdhury Attending Unavailable SILVANA WETZEL Admitting Unavailable REQUEST, NONE LISTED Primary Care Unavaila SILVANA Cobb Attending Unavailable SILVANA WETZEL Admitting Unavailable REQUEST, NONE LISTED Primary Care SILVANA Buck Attending Unavailable SILVANA WETZEL Admitting Unavailable REQUEST, NONE LISTED Primary Care SILVANA Buck Attending Unavailable SILVANA WETZEL Admitting Unavailable REQUEST, NONE LISTED Primary Care UnavailInes Horn MD Primary Care Provider João CRUZ, Marlene Unavailable MARLENE MOYER Attending Unavailable Allergies Allergy Classification Reported Allergen(s) Allergy Type Date of Onset Reaction(s) Facility (2 sources) Adhesive agent Drug allergy (disorder) [facility] Repository Medications Current Medications Medication Drug Class(es) [...] Coronary arteriosclerosis; Translations: [Atherosclerotic heart disease of ramona coronary artery without angina pectoris] Onset: 06-08-2023 [...] Performing Organization Information Site ID: QPT Name: [facility] Address: [address] [place] [address], [address] [place] [phone] Director: Maninder Alves MD [facility] CBC W Auto Differential pane l (Bld)on 01-07-2024 Basophils (Bld) [#/Vol] 32 10*3/uL [facility] Healthcare Basophils/100 WBC (Bld) 0.8 % [facility] Eosinophils (Bld) [#/Vol] 160 10*3/uL [facility] Eosinophils/100 WBC (Bld) 4.0 % [facility] Erythrocyte distribution width (RBC) [Ratio] 12.6 % 11.0 - 15.0 % [facility] Hematocrit (Bld) [Volume fraction] 37.7 % Low 38.5 - 50.0 % [facility] Healthcar e Hemoglobin (Bld) [Mass/Vol] 12.0 g/dL Low 13.2 - 17.1 g/dL [facility] Lymphocytes (Bld) [#/Vol] 664 10*3/uL Low [facility] Lymphocytes/100 WBC (Bld) 16.6 % [facility] MCH (RBC) [Entitic mass] 29.8 pg 27.0 - 33.0 pg [facility] MCHC (RBC) [Mass/Vol] 31.8 g/dL Low 32.0 - 36.0 g/dL [facility] MCV (RBC) [Entitic vol] 93.5 fL 80.0 - 100.0 fL [facility] Monocytes (Bld) [#/Vol] 452 10*3/uL [facility] Healthcare Monocytes/100 WBC (Bld) 11.3 % [facility] Neutrophils (Bld) [#/Vol] 2692 10*3/uL [facility] Neutrophils/100 WBC (Bld) 67.3 % [facility] Platelet mean volume (Bld) [Entitic vol] 9.9 fL 7.5 - 12.5 fL [facility] Plate[facility] (Bld) [#/Vol] 179 10*3/uL [facility] RBC (Bld) [#/Vol] 4.03 10*6/uL Low [facility] WBC (Bld) [#/Vol] 4.0 10*3/uL [facility] Laboratory - Chemistry and C hemistry - challengeon 01-07-2024 Albumin [Mass/Vol] 3.9 g/dL 3.6 - 5.1 g/dL [facility] Albumin/Globulin [Mass ratio] 1.1 {ratio} [facility] ALP [Catalytic activity/Vol] 76 U/L 35 - 144 U/L [facility] ALT [Catalytic activity/Vol] 14 U/L 9 - 46 U/L [facility] AST [Catalytic activity/Vol] 18 U/L 10 - 35 U/L [facility] Bilirubin [Mass/Vol] 0.4 mg/dL 0.2 - 1.2 mg/dL [facility] Calcium [Mass/Vol] 9.0 mg/dL 8.6 - 10. 3 mg/dL [facility] Chloride [Moles/Vol] 103 mmol/L 98 - 110 mmol/L [facility] CO2 [Moles/Vol] 29 mmol/L 20 - 32 mmol/L [facility] Creatinine [Mass/Vol] 0.61 mg/dL Low 0.70 - 1.28 mg/dL [facility] GFR/1.73 sq M.predicted among non-blacks MDRD (S/P/Bld) [Vol rate/Area] 100 mL/min/{1.73_m2} > OR = 60 mL/min/1.73m2 [facility] Globulin (S) [Mass/Vol] 3.4 g/dL [facility] Glucose [Mass/Vol] 90 mg/dL 65 - 99 mg/dL [facility] Comment on above: Fasting reference interval Potassium [Moles/Vol] 4.1 mmol/L 3.5 - 5.3 mmol/L [facility] Protein [Mass/Vol] 7.3 g/dL 6.1 - 8.1 g/dL NO [facility] Sodium [Moles/Vol] 143 mmol/L 135 - 146 mmol/L [facility] TSH Qn 1.54 m[IU]/L [facility] Urea nitrogen [Mass/Vol] 16 mg/dL 7 - 25 mg/dL [facility] Urea nitrogen/Creatinine [Mass ratio] 26 mg/mg High [facility] 25-hydroxyvitamin D3 [Mass/Vol] 36 ng/mL 30 - 100 ng/mL [facility] Comment on above: Vitamin D Status 25- [place] Vitamin D: Deficiency: <20 ng/mL Insufficiency: 20 - 29 ng/mL Optimal: > or = 30 ng/mL For 25-OH Vitamin D testing on patients on D2-supplementation and patients for whom quantitation of D2 and D3 fractions is required, the QuestAssureD(TM) 25-OH VIT D, (D2,D3), LC/MS/MS is recommended: order code 71059 (patients >2yrs). See Note 1 Note 1 For additional information, please refer to http://education.MunchAway/faq/FWU481 (This link is being provided for informational/ educational purposes only.) No Panel Informationon 01-07 Interpretation and review of laboratory results Abnormal [facility] Performing Organization Information Site ID: QPT Name: [facility] Address: [address] [place] [address], [address] [place] [phone] Director: Maninder Alves MD [facility] Vital Signs Date Time Vital Sign Value Performing Clinician Kwan sutton 01-06-2024 13:04-0500 Body height 182.9 cm Marlene Moyer DOOR OPERATOR Work Phone: [facility] 01-06-2024 13:04-0500 Diastolic blood pressure 80 mm[Hg] Marlene Moyer DOOR OPERATOR Work Phone: [facility] 01-06-2024 13:04-0500 Heart rate 71 /min Marlene Moyer DOOR OPERATOR Work Phone: [facility] 01-06-2024 13:04-0500 SaO2% (BldA) [Mass fraction] 93 % Marlene Moyer DOOR OPERATOR Work Phone: [facility] 01-06-2024 13:04-0500 Systolic blood pressure 118 mm[Hg] Marlene Moyer DOOR OPERATOR Work Phone: [facility] Encounters Encounter Date Encounter Type Care Provider Facility Start: 01-06-2024 End: 01-07-2024 ambulatory MARLENE MATHURHANNAH Not Available Start: 01-06-2024 End: 01-06-2024 Office outpatient visit 25 minutes Marlene Moyer DOOR OPERATOR Work Phone: [facility] Comment on [...] Start: 01-01-2024 Telephone encounter Marlene Eduard pierre DOOR OPERATOR Work Phone: [facility] Start: 04-07-2023 End: 04-08-2023 ambulatory [facility] Facility:H1 Start: 03-16-2023 End: 03-17-2023 ambulatory [facility] Facility:H1 Start: 02-13-2023 End: 02-14-2023 ambulatory [facility] Facility:H1 Start: 01-12-2023 End: 01-13-2023 ambulatory [facility] Facility:H1 Start: 01-01-2023 End: 01-02-2023 ambulatory TATOMED YANG Facility:H1 Start: 12-22-2022 End: 12-23-2022 ambulatory [facility] Facility:H1 Start: 11-17-2022 End: 11-18-2022 ambulatory [facility] Facility:H1 Start: 10-21-2022 End: 10-22-2022 ambulatory [...] 01-06-2024 TSH W/REFLEX TO FT4 Praneeth Moyer NP Work Phone: Start: 06-08-2023 H/O: colostomy Colostomy status Cassandra Moyer NP Work Phone: H/O: colostomy 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) Marlene Moyer DOOR OPERATOR Work Phone: Plan of Treatment Date Care Activity Detail Author Start: 02-26-2024 Medicare Annual Well ness (AWV) Medicare Annual Wellness (AWV) [facility] Start: 02-23-2024 End: 02-23-2024 Patient encounter procedure 02/23/2024 1:00 PM EDT Office Visit [facility] [address] [place] [address] Marlene Moyer NP [address] [place], [place] [id number] [facility] Immunizations Immunization Date Immunization Notes Care Provider Fa cility 08-26-2023 Influenza, High-dose Seasonal, Quadrivalent, Preservative Free Marlene Kampfer DOOR OPERATOR Work Phone: [facility] 08-27-2022 Influenza, High-dose Seasonal, Quadrivalent, Preservative Free Marlene Kampfer DOOR OPERATOR Work Phone: [facility] 08-27-2021 Influenza, High-dose Seasonal, Quadrivalent, Preservative Free Marlene Kampfer DOOR OPERATOR Work Phone: [facility] 11-22-2020 influenza, injectabl e, quadrivalent, contains preservative Marlene Kampfer DOOR OPERATOR Work Phone: [facility] 09-26-2019 Influenza, High-dose Seasonal, Quadrivalent, Preservative Free Marlene Kampfer DOOR OPERATOR Work Phone: [facility] 09-06-2018 Influenza, High-dose Seasonal, Quadrivalent, Preservative Free Marlene Kampfer DOOR OPERATOR Work Phone: [facility] Work Phone: 09-21-2017 Influenza, High-dose Seasonal, Quadrivalent, Preservative Free Marlene Kampfer DOOR OPERATOR Work Phone: [facility] 09-15-2016 Influenza, High-dose Seasonal, Quadrivalent, Preservative Free Marlene Kampfer DOOR OPERATOR Work Phone: [facility] 05-01-2016 pneumococcal polysaccharide vaccine, 23 valent Marlene Kampfer DOOR OPERATOR Work Phone: [facility] 09-10-2015 pneumococcal conjuga te vaccine, 13 valent Marlene Kampfer DOOR OPERATOR Work Phone: [facility] 11-30-2005 pneumococcal polysaccharide vaccine, 23 valent Marlene Kampfer DOOR OPERATOR Work Phone: [facility] Payers Date Payer Category Payer Medicare [employer] MEDICARE ADVANTAGE [facility] MEDICARE ADVANTAGE [id number] 2018-Present [address] [place] [address] [id number] 1957 Unknown [id number] 1945 Unknown [id number] [id number] 3 1945 Unknown [id number] [id number] 3 1945 Unknown [id number] 2.16.840.1.039704.3.579.2.59 3 1945 Unknown [id number] 2.16.840.1.057018.3.579.2.59 3 1945 Unknown [id number] 2.16.840.1.698026.3.579.2.59 3 1945 Unknown [id number] 2.16.840.1.453377.3.579.2.59 3 1945 Unknown [id number] 2.16.840.1.749826.3.579.2.59 3 1945 Unknown [id number] 2.16.840.1.866942.3.579.2.59 3 1945 Unknown [id number] 2.16.840.1.503430.3.579.2.59 3 1945 Unknown [id number] 2.16.840.1.769094.3.579.2.59 3 1945 Unknown [id number] 2.16.840.1.698629.3.579.2.59 3 1945 Unknown [id number] 2.16.840.1.261194.3.579.2.59 3 1945 Unknown [id number] 2.16.840.1.021203.3.579.2.59 3 1945 Unknown [id number] 2.16.840.1.805081.3.579.2.59 3 1945 Unknown [id number] 2.16.840.1.345367.3.579.2.59 3 1945 Unknown [id number] 2.16.840.1.053762.3.579.2.59 3 1945 Unknown [id number] [id number] 59 Social History Date Type Detail Facility Start: 08-26-2023 Tobacco smoking stat [facility] Never smoked tobacco [facility] Start: 08-26-2023 Tobacco use and exposure Smoke less tobacco non-user [facility] Start: 12-21-2023 End: 01-08-2024 Alcohol intake Ex-drinker (finding) [facility] Start: 08-26-2023 End: 01-01-2024 History of Social function [facility] Start: 08-26-2023 End: 01-01-2024 Tobacco use panel [facility] Start: 08-25-2023 Alcohol Comment caffeine: 1-2 cups per day [facility] Start: 1945 Sex Assigned [...] gave citalopram. He states he goes to [facility] to check legs pressure and vein flow. [...] by wound center documented in this encounter [facility] Telephone encounter Note 01-01-2024 Telephone Encounter - Elizabeth Bush - 01/01/2024 10:19 AM EST Note Date & Type Note Facility 01-01-2024 Telephone encount er Note Ana from [facility] has concerns with pt stating that he seems more tired and his edema is more than normal. She would like to have labs ordered. Please call [phone] with orders. [facility] Healthcare Note 01-01-2024 Telephone Encounter - Elizabeth Bush - 01/01/2024 10:19 AM EST Note Date & Type Note Facility 01-01-2024 Miscellaneous Notes Formattin g of this note might be different from the original. Ana from [facility] has concerns with pt stating that he seems more tired and his edema is more than normal. She would like to have labs ordered. Please call [phone] with orders. documented in this encounter [facility] Clinical Note 05-27-2022 Note Date & [...] by: ELIEL WORTHINGTON Date: 2022-05-27 07:13 [facility] Evaluation note Note Date & Type Note [...] FoundDocuments on File Type Date Recorded Patient Insurance Healthcare Representative Expl anation Advance Directives and Living Will 09/15/2018 2001-05-13 Living Wi ll Advance Directives and Living Will 09/15/2018 2001-05-13 Healthcar e POA Additional Source Comments (unrecognized sect ion and content) No Status Records FoundNo Status Records Found INFORMATION SOURCE (unrecogn ized section and content) DATE CREATED AUTHOR 04/08/2023 The [facility] pital DATE CREATED AUTHOR 'S ORGANIZ ATION 01/11/2024 [facility] dical Specialists EPIC Care Teams (unrecognized sec tion and content) Deputy Insurance Commissioner Relationship Specialty Start Date End Date Ines Cole MD [address] [place] [address] PCP - General Family Medicine 12/17/23 Marlene Moyer NP [address] [place] [address] Nurse Practitioner Family Medicine 12/17/23 Deputy Insurance Commissioner Relationship Specialty Start Date End Date Ines Cole MD [address] [place] [address] PCP - General Family Medicine 12/17/23 Marlene Moyer NP [address] [place] [address] Nurse Practitioner Family Medicine 12/17/23 Reason for [...] BE BASED ON THE PRIMARY CLINICAL RECORDS. [facility] Strategic Funding Source [facility]. provides no warranty or guarantee of the accuracy or completeness of information in this document.
== END 2024-01-22 10:45 | disposition home or self-care (01) ==
LOC: WC 10:44
PROVIDERS: PCP Family Medicine; Visit Provider Podiatrist Foot & Ankle Surgery
DX: L97.321 Non-pressure chronic ulcer of left ankle limited to breakdown of skin (principal); L97.512 Non-pressure chronic ulcer of other part of right foot with fat layer exposed; L97.311 Non-pressure chronic ulcer of right ankle limited to breakdown of skin; L89.622 Pressure ulcer of left heel, stage 2; L89.512 Pressure ulcer of right ankle, stage 2; L89.893 Pressure ulcer of other site, stage 3
CPT/HCPCS: 11043; 29580

== ENCOUNTER 2024-02-08 13:21 | Outpatient (OUT) | payer MEDICARE, SELFPAY | END 2024-02-08 13:22 | disposition home or self-care (01) | LOC: WC 13:21 | PROVIDERS: PCP Family Medicine; Visit Provider Physician Assistant | DX: I87.312 Chronic venous hypertension (idiopathic) with ulcer of left lower extremity (principal); L97.321 Non-pressure chronic ulcer of left ankle limited to breakdown of skin; L97.512 Non-pressure chronic ulcer of other part of right foot with fat layer exposed; L97.311 Non-pressure chronic ulcer of right ankle limited to breakdown of skin; L89.512 Pressure ulcer of right ankle, stage 2; L89.893 Pressure ulcer of other site, stage 3 | CPT/HCPCS: G0463 ==

== ENCOUNTER 2024-03-09 10:07 | Outpatient (OUT) | payer MEDICARE, SELFPAY ==
--- NOTE | 2024-03-09 10:16 | ECG_ITS ---
The [facility] Test Date: 2024-03-09 Pat Name: ELPIDIO LEI Department: Room: - Gender: Male Static Balancer: : 1945 Requested By: [id number] Order Number: [id number] Reading MD: DERIC ANDRADE Measurements Intervals [place] Rate: 61 P: 67 IA: 208 QRS: 71 QRSD: 89 T: 35 QT: 416 QTc: 420 Interpretive Statements SINUS RHYTHM WITH OCCASIONAL SUPRAVENTRICULAR PREMATURE COMPLEXES Compared to ECG 12/03/2021 14:19:31 Possible ischemia no longer present Electronically Signed On 03-10-2024 6:54:59 EDT by DERIC ANDRADE
--- NOTE | 2024-03-09 11:12 | XR_ITS ---
The [address] [address] Patient Name: ELPIDIO LEI MRN: [id number] date: 1945 Sex: M Assigned Patient Location: Current Patient Location: [place] Accession/Order Number: [id number] Exam Date: 03/09/2024 11:00 Report Date: 03/09/2024 13:07 At the request of: ISSAC ROBISON Procedure: XR chest 2V EXAM: XR chest 2V HISTORY: Preop exam COMPARISON: None. TECHNIQUE: PA and lateral views of the chest. FINDINGS: The cardiomediastinal silhouette is normal. No focal consolidation is enlarged. There is no pneumothorax. No pleural effusion is noted. The osseous structures are intact. XR/XR chest 2V IMPRESSION: Cardiomegaly. Electronically authenticated by: HEIDI HICKS Date: 03/09/2024 13:07
[2024-03-09 11:35] LABS: Basophils Percent Auto 0.8 % (0.2-2.0); Eosinophils Absolute Auto 0.2 10^3/uL (0.0-0.7); Eosinophils Percent Auto 4.2 % (0.9-7.0); Hematocrit 37.4 % (42.0-54.0); Hemoglobin 11.6 g/dL (14.0-18.0); Immature Granulocytes Abs Auto 0.01 10^3/uL (0.00-0.03); Immature Granulocytes Pct Auto 0.3 % (0.0-0.5); Lymphocytes Absolute Auto 0.6 10^3/uL (1.2-3.8); Lymphocytes Percent Auto 15.4 % (20.5-60.0); Mean Corpuscular Hemoglobin 29.4 pg (25.9-34.0); Mean Corpuscular Volume 94.7 fL (80.0-94.0); Mean Platelet Volume 9.6 fL (9.5-13.5); Monocytes Absolute Auto 0.4 10^3/uL (0.3-0.8); Monocytes Percent Auto 11.5 % (1.7-12.0); Neutrophils Absolute Auto 2.6 10^3/uL (1.4-6.5); Neutrophils Percent Auto 67.8 % (43.0-75.0); Platelet Count 144 10^3/uL (150-450); Red Blood Count 3.95 10^6/uL (4.70-6.10); Red Cell Distribution Width 13.2 % (11.0-15.0); White Blood Count 3.8 10^3/uL (4.0-11.0)
[2024-03-09 12:56] LABS: Anion Gap 10.2; BUN Creatinine Ratio 22.8; Calcium 9.2 mg/dL (8.5-10.1); Carbon Dioxide 32.9 mmol/L (21.0-32.0); Chloride 105 mmol/L (98-107); Estimated GFR (African America >60 (>=60); Estimated GFR (Non-African Ame >60 (>=60); Glucose 89 mg/dL (74-106); Potassium 3.1 mmol/L (3.5-5.1); Sodium 145 mmol/L (136-145)
== END 2024-03-09 10:08 | disposition home or self-care (01) ==
LOC: PST 10:09
PROVIDERS: PCP Family Medicine; Visit Provider Student in an Organized Health Care Education/Training Program
DX: Z01.812 Encounter for preprocedural laboratory examination (principal); D64.9 Anemia, unspecified; J44.9 Chronic obstructive pulmonary disease, unspecified; I10 Essential (primary) hypertension; I87.319 Chronic venous hypertension (idiopathic) with ulcer of unspecified lower extremity
CPT/HCPCS: 71046; 80048; 85025; 93005

== ENCOUNTER 2024-03-09 11:12 | Outpatient (OUT) | payer MEDICARE, SELFPAY ==
--- NOTE | 2024-03-09 11:14 | VEIN_ITS ---
Patient Name: ELPIDIO LEI MR#: [id number] : 1945 Exam Date: 03/09/2024 Ordering Doctor: ISSAC ROBISON M.D. RADIOLOGY REPORT PROCEDURE: VC EXT VENOUS REFLUX ANNE LMTD COMPARISON: None. 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 The study includes evaluation of the great saphenous vein (GSV), anterior accessory saphenous vein (AASV) and small saphenous vein (SSV). Patient scanned in reverse Trendelenburg and standing. FINDINGS: RIGHT LOWER EXTREMITY: Saphenofemoral Junction Reflux: Yes 5.8mm 2.0 sec GSV: Diam (mm) Reflux/ Time (sec) Proximal Thigh N/A Mid Thigh N/A Distal Thigh N/A Prox Calf N/A Mid Calf N/A Saphenopopliteal Junction Reflux: 3.2mm Yes 0.5 SSV: Proximal Calf N/A Mid Calf N/A AASV: Not present Thrombi: Chronic thrombus in FV proximal to mid/distal. Compressibility: Non compressible FV. Flow: Mild deep venous reflux. Preforator: Distal/posterior thigh 4.6 mm with 0.9s reflux. Proximal thigh at level of SFJ and arises from FV 4.9 mm with 0.9s reflux. Tech Note: Heterogeneous lymph node in right groin measures 2.9 x 1.6 x 1.1 cm. previously treated GSV and possibly SSV. Incompetent varicose vein mid medial thigh measures associated with proximal thigh fluoroscope operator measures 5.7mm with 0.5s reflux. Varicose vein proximal anterior lower leg measures 3.2 mm with 0.6s reflux. LEFT LOWER EXTREMITY: Saphenofemoral Junction Reflux: Yes 4.3 mm 0.6 sec GSV: Diam (mm) Reflux/Time (sec) Proximal Thigh N/A Mid Thigh N/A Distal Thigh N/A Prox Calf N/A Mid Calf N/A Saphenopopliteal Junction Relux: 3.8 mm Yes 0.3 SSV: Proximal Calf 1.3 Yes 0.7 Mid Calf 2.8 Yes 0.3 AASV: Not present Thrombi: No acute or chronic thrombus. Compressibility: Normal. Flow: Moderate deep venous reflux. Music Autographer: No significant perforators. Tech Note: Previously treated GSV. Incompetent varicose vein distal medial lower leg measures 2.3 mm with 0.3s reflux. Varicose vein medial knee measures 3.6 mm with 1.8s reflux. Varicose vein proximal lateral lower leg measures 2.1 mm with 0.5s reflux. Varicose vein distal anterior lower leg measures 3.6 mm with 0.6s reflux. CONCLUSION: 1. Previously treated bilateral great saphenous and small saphenous veins 2. Mild venous insufficiency without dilatation left small saphenous vein 3. Mild right and moderate left deep vein reflux 4. 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 Incompetent right leg perforating veins 6. Small bilateral incompetent varicose veins, left greater than right Dictated by: Peter Leslie MD on 03/09/2024 at 13:45 Approved by: Peter Leslie MD on 03/09/2024 at 13:53
== END 2024-03-09 11:13 | disposition home or self-care (01) ==
LOC: VC 11:12
PROVIDERS: PCP Family Medicine; Visit Provider Student in an Organized Health Care Education/Training Program
DX: Z01.812 Encounter for preprocedural laboratory examination (principal); D64.9 Anemia, unspecified; J44.9 Chronic obstructive pulmonary disease, unspecified; I10 Essential (primary) hypertension; I83.813 Varicose veins of bilateral lower extremities with pain
CPT/HCPCS: 71046; 93005; 93970

== ENCOUNTER 2024-03-14 15:48 | Outpatient (OUT) | payer MEDICARE, SELFPAY | END 2024-03-14 15:49 | disposition home or self-care (01) | LOC: WC 15:48 | PROVIDERS: PCP Family Medicine; Visit Provider Physician Assistant | DX: L97.321 Non-pressure chronic ulcer of left ankle limited to breakdown of skin (principal); L97.512 Non-pressure chronic ulcer of other part of right foot with fat layer exposed; L97.311 Non-pressure chronic ulcer of right ankle limited to breakdown of skin; L89.512 Pressure ulcer of right ankle, stage 2; L89.893 Pressure ulcer of other site, stage 3; I87.312 Chronic venous hypertension (idiopathic) with ulcer of left lower extremity | CPT/HCPCS: G0463 ==

== ENCOUNTER 2024-03-17 09:46 | Day surgery (SDC) | payer MEDICARE, SELFPAY ==
[2024-03-09 10:53] VITALS: BP 106/65; PULSE 68; TEMP 36.2; O2SAT 92; BMI 34.1
--- OUTSIDE RECORDS SUMMARY | 2024-03-17 10:10 | XMS_ITS | CCD ---
Author Organization [facility] Care Team Providers [facility] Consultant Name Role Phone SILVANA WETZEL Admitting Unavailable HIGHLSILVANA DENNISON Attending Unavailable REQUEST, NONE LISTED Primary Care [...] Christianson Consulting Unavailable HIGHLSILVANA DENNISON Consulting Unavailable DAMARI, SILVANA Chowdhury Admitting Unavailable REQUEST, NONE LISTED Primary Care Unavaila ble DAMARI, SILVANA Chowdhury Attending Unavailable HIGHLJESI, SILVANA Chowdhury Attending Unavailable HIGHLJESI, SILVANA Chowdhury Admitting Unavailable REQUEST, NONE LISTED Primary Care Unavaila brandon WETZEL, SILVANA Chowdhury Admitting Unavailable REQUEST, NONE LISTED Primary Care Unavaila ble DAMARI, SILVANA Chowdhury Attending Unavailable TATO YANG Admitting Unavailable CELIATATO BALTAZAR Attending Unavailable MISC, DR RODRIGUEZ Primary Care Unavailable TATO YANG Consulting Unavailable SILVANA WETZEL Attending Unavailable SILVANA WETZEL Admitting Unavailable REQUEST, NONE LISTED Primary Care Unavaila ble DAMARI, SILVANA Chowdhury Admitting Unavailable REQUEST, NONE LISTED Primary Care Unavaila ble DAMARI, SILVANA Chowdhury Attending Unavailable HIGHLJESI, SILVANA Chowdhury Admitting Unavailable HIGHLJESI, SILVANA Chowdhury Attending Unavailable REQUEST, NONE LISTED Primary Care Unavaila brandon WETZEL, SILVANA Chowdhury Admitting Unavailable REQUEST, NONE LISTED Primary Care Unavaila ble DAMARI, SILVANA Chowdhury Attending Unavailable HIGHLJESI, SILVANA Chowdhury Attending Unavailable HIGHLJESI, SILVANA Chowdhury Admitting Unavailable REQUEST, NONE LISTED Primary Care Unavaila ble DAMARI, SILVANA Chowdhury Attending Unavailable HIGHLJESI, SILVANA Chowdhury Admitting Unavailable REQUEST, NONE LISTED Primary Care Unavaila ble SILVANA WETZEL Attending Unavailable SILVANA WETZEL Admitting Unavailable REQUEST, NONE LISTED Primary Care SILVANA Buck Attending Unavailable SILVANA WETZEL Admitting Unavailable REQUEST, NONE LISTED Primary Care Ines Perez MD Primary Care Provider Marlene Moyer NP Unavailable Kerri Le DO Primary Care Provider MARLENE MOYER Attending Unavailable MARLENE MOYER Attending Unavailable Allergies Allergy Classification Reported Allergen(s) Allergy Type Date of Onset Reaction(s) Facility (2 sources) Adhesive agent Drug allergy (disorder) [facility] Repository (4 sources) Adhesive Tape-Silicones Propensity to adverse reactions to drug 8 [facility] Medications Current Medications Medication Drug Class(es) Dates Sig (Normalized) Sig (Original) amLODIPine 5 mg oral tablet (7 sources) Dihydropyridine Calcium Channel Sara Start: 01-19-2018 take 1 tablet by mouth in the morning amLODIPine (NORVASC) 5 mg tablet Take 1 tablet (5 mg total) by mouth in the morning. 0 01/19/2018 Active ascorbic acid 500 mg oral tablet (7 sources) Vitamin C take 1 tablet by mouth in the morning ascorbic acid (VITAMIN C) 500 mg tablet Take 1 tablet (500 mg total) by mouth in the morning. 0 Active ascorbic acid (V itamin C) 250 MG chewable tablet 1 (one) time each day at the same time. 0 Active aspirin 81 mg delayed release oral tablet (3 sources) Platelet Aggregation Inhibitor, Nonsteroidal Anti-inflammatory Drug aspirin 81 MG EC tablet 1 (one) time each day at the same time. 0 Active atorvastatin 20 mg oral tablet (4 sources) HMG-CoA Reductase Inhibitor take 1 tablet by mouth in the morning, then take 1 tablet by mouth at bedtime atorvastatin (LIPITOR) 20 mg tablet Take 1 tablet (20 mg total) by mouth in the morning and 1 tablet (20 mg total) before bedtime. 0 Active carvedilol 6.25 mg oral tablet (7 sources) alpha-Adrenergic Sara, beta-Adrenergic Sara Start: 023 take 1 tablet by mouth twice daily carvedilol (Coreg) 6.25 MG tablet Indications: Primary hypertension (CMS/HCC) TAKE ONE TABLET BY MOUTH TWICE A DAY 180 tablet 3 11/24/2023 Active cephalexin 500 mg oral capsule (2 sources) Cephalosporin Antibacterial Start: cephalexin (Keflex) 500 MG capsule citalopram 40 mg oral tablet (7 sources) Serotonin Reuptake Inhibitor Start: 023 take 1 tablet by mouth once daily citalopram (CeleXA) 40 MG tablet Indications: 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) TAKE ONE TABLET BY MOUTH DAILY 90 tablet 2 08/21/2023 Active collagenase 0.25 unt/mg topical ointment (3 sources) Collagen-specific Enzyme Start: Santyl 250 UNIT/GM ointment ferrous sulfate 325 mg oral tablet (7 sources) Start: take 1 tablet by mouth once daily ferrous sulfate (FeroSul) 325 (65 Fe) MG tablet Indications: 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 TAKE ONE TABLET BY MOUTH DAILY 90 tablet 3 08/31/2023 Active take 1 tablet by garcia th in the morning, then take 1 tablet by mouth at bedtime ferrous sulfate 325 (65 FE) mg tablet Take 1 tablet (325 mg total) by mouth in the morning and 1 tablet (325 mg total) before bedtime. 0 Active furosemide 20 mg oral tablet (7 sources) Loop Diuretic Start: 08-21-2023 take 2 tablets by mouth once daily furosemide (Lasix) 20 MG tablet Indications: Acute bilateral venous stasis dermatitis TAKE TWO TABLETS BY MOUTH DAILY 180 tablet 2 08/21/2023 Active take 1 tablet by mouth twice mariana ly furosemide (LASIX) 20 mg tablet Take 1 tablet (20 mg total) by mouth 2 (two) times a day. 0 Active ibuprofen 200 mg oral tablet (3 [...] capsule (3 sources) Proton Pump Inhibitor Start: omeprazole (PriLOSEC) [address] capsule Indications: Gastroesophageal reflux disease, unspecified whether esophagitis present TAKE ONE CAPSULE BY MOUTH DAILY 30 MINUTES BEFORE MORNING MEAL 90 capsule 2 08/21/2023 Active Oxygen (4 sources) oxygen Inhale 3- 4 L/min as needed. 0 Active potassium chloride 20 meq extended release oral tablet (7 sources) Start: 023 take 1 tablet by mouth once daily at mealtime potassium chloride CR (K-Tab) 20 MEQ ER tablet Indications: Hypokalemia TAKE ONE TABLET BY MOUTH DAILY WITH FOOD 90 tablet 3 08/31/2023 Active take 1 dose by mouth in the morn ing potassium chloride (KLOR-CON) 20 mEq packet Take 1 packet (20 mEq total) by mouth in the morning. 0 Active rosuvastatin calcium 10 mg oral tablet (3 sources) HMG-CoA Reductase Inhibitor Start: 03-03-2023 rosuvastatin (Crestor) 10 MG tablet 1 (one) time each day at the same time. 0 03/03/2023 Active zinc gluconate 50 mg oral tablet (3 sources) zinc gluconate 5 0 MG tablet 1 (one) time each day at the same time. 0 Active zinc sulfate 220 mg oral capsule (4 sources) take 1 capsule by mouth in the morning zinc sulfate (ZINCATE) 50 mg zinc (220 mg) capsule Take 1 capsule (220 mg total) by mouth in the morning. 0 Active Problems Active Problems Problem Classification Problem Date Documented Date Episodic/Chronic Chronic ulcer of skin (20 sources) Non-pressure chronic ulcer of left ankle limited to breakdown of skin; Translations: [Non-pressure chronic ulcer of other part of right foot with fat layer exposed] Onset: 05-05-2022 Chronic Coronary atherosclerosis and other heart disease (3 sources) Coronary arteriosclerosis; Translations: [Atherosclerotic heart disease of [place] coronary artery without angina pectoris] Onset: 06-08-2023 [...] esophagitis] Onset: 06-08-2023 06-08-2023 Chronic Essential hypertension (10 sources) Essential (primary) hypertension; Translations: [Essential hypertension] Onset: 02-11-2018 08-26-2023 Chronic Malaise and fatigue (2 sources) [...] Chronic Other nutritional; endocrine; and metabolic disorders (7 sources) Alveolar hypoventilation; Translations: [Morbid (severe) obesity with alveolar hypoventilation] Onset: 02-11-2018 08-26-2023 Chronic Paralysis (15 sources) Paraplegia, incomplete; 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] Onset: 11-09-2019 06-08-2023 Chronic Peripheral and visceral atherosclerosis (1 [...] Onset: 06-08-2023 06-08-2023 Chronic Residual codes; unclassified (10 sources) Obstructive sleep apnea syndrome; Translations: [Obstructive sleep apnea (adult) (pediatric)] Onset: 02-11-2018 06-08-2023 Chronic Residual codes; unclassified (5 sources) Localized edema; Translations: [LOCALIZED EDEMA] Onset: 01-23-2023 Episodic Respiratory failure; insufficiency; arrest (adult) (13 sources) Dependence on supplemental oxygen; Translations: [Chronic hypoxemic respiratory failure] Onset: 09-22-2018 06-08-2023 Chronic Varicose veins of lower extremity (10 sources) Venous stasis ulcer with edema of left lower leg; Translations: [Varicose veins of left lower extremity with ulcer of unspecified site] Onset: 10-06-2018 08-26-2023 Episodic Past or Other Problems Problem Classification Problem Date Documented Da te Episodic/Chronic Mood disorders (4 sources) Mood disorders Onset: 12-05-2020 12-05-2020 Nutritional deficiencies (7 sources) Iron deficiency; Translations: [Iron deficiency] Onset: [...] of lung] Onset: 06-08-2023 06-08-2023 Episodic Other lower respiratory disease (4 sources) Restrictive lung disease due to kyphoscoliosis; Translations: [Other disorders of lung] Onset: 02-11-2018 02-11-2018 Episodic Other nervous system disorders (3 sources) Impaired cognition; Translations: [Other symptoms and signs involving cognitive functions and awareness] Onset: 06-08-2023 06-08-2023 Episodic Other nervous system disorders (9 sources) Myoneural disorder; Translations: [Myoneural disorder, unspecified] Onset: 02-11-2018 08-26-2023 Episodic Other skin disorders (1 source) Personal history of diseases of the skin and subcutaneous tissue; Translations: [PERS HX DZ SKIN AND SUBCUTANEOUS TISSUE] Onset: 11-06-2022 Episodic Residual codes; unclassified (3 sources) Edema; Translations: [Edema, unspecified] Onset: 08-26-2023 08-26-2023 Episodic Skin and subcutaneous tissue infections (9 sources) Cellulitis of right lower limb; Translations: [Cellulitis of right lower limb] Onset: 12-05-2020 08-26-2023 Episodic Results Test Name Value Interpretation Reference Range Facil ity 25-hydroxyvitamin D3 [Mass/V ol]on 01-07-2024 Performing Organization Information Site ID: QPT Name: [facility] Address: [address] [place] [address], [address] [place] [id number] Director: Maninder Alves MD [facility] CBC W Auto Differential pane l (Bld)on 01-07-2024 Basophils (Bld) [#/Vol] 32 10*3/uL [facility] Basophils/100 WBC (Bld) 0.8 % [facility] Eosinophils (Bld) [#/Vol] 160 10*3/uL [facility] Eosinophils/100 WBC (Bld) 4.0 % [facility] Erythrocyte distribution width (RBC) [Ratio] 12.6 % 11.0 - 15.0 % [facility] Hematocrit (Bld) [Volume fraction] 37.7 % Low 38.5 - 50.0 % [facility] Hemoglobin (Bld) [Mass/Vol] 12.0 g/dL Low 13.2 - 17.1 g/dL [facility] Lymphocytes (Bld) [#/Vol] 664 10*3/uL Low [facility] Lymphocytes/100 WBC (Bld) 16.6 % [facility] MCH (RBC) [Entitic mass] 29.8 pg 27.0 - 33.0 pg [facility] MCHC (RBC) [Mass/Vol] 31.8 g/dL Low 32.0 - 36.0 g/dL [facility] MCV (RBC) [Entitic vol] 93.5 fL 80.0 - 100.0 fL [facility] Monocytes (Bld) [#/Vol] 452 10*3/uL [facility] Monocytes/100 WBC (Bld) 11.3 % [facility] Neutrophils (Bld) [#/Vol] 2692 10*3/uL [facility] Neutrophils/100 WBC (Bld) 67.3 % [facility] Platelet mean volume (Bld) [Entitic vol] 9.9 fL 7.5 - 12.5 fL [facility] are Platelets (Bld) [#/Vol] 179 10*3/uL [facility] RBC (Bld) [#/Vol] 4.03 10*6/uL Low [facility] WBC (Bld) [#/Vol] 4.0 10*3/uL [facility] - Chemistry and C hemistry - challengeon 01-07-2024 Albumin [Mass/Vol] 3.9 g/dL 3.6 - 5.1 g/dL NO [facility] Albumin/Globulin [Mass ratio] 1.1 {ratio} [facility] ALP [Catalytic activity/Vol] 76 U/L 35 - 144 U/L [facility] ALT [Catalytic activity/Vol] 14 U/L 9 - 46 U/L [facility] AST [Catalytic activity/Vol] 18 U/L 10 - 35 U/L [facility] Bilirubin [Mass/Vol] 0.4 mg/dL 0.2 - 1.2 mg/dL [facility] Calcium [Mass/Vol] 9.0 mg/dL 8.6 - 10. 3 mg/dL [facility] Chloride [Moles/Vol] 103 mmol/L 98 - 110 mmol/L [facility] CO2 [Moles/Vol] 29 mmol/L 20 - 32 mmol/L [facility] Creatinine [Mass/Vol] 0.61 mg/dL Low 0.70 - 1.28 mg/dL [facility] GFR/1.73 sq M.predicted among non-blacks MDRD (S/P/Bld) [Vol rate/Area] 100 mL/min/{1.73_m2} > OR = 60 mL/min/1.73m2 [facility] Globulin (S) [Mass/Vol] 3.4 g/dL [facility] Glucose [Mass/Vol] 90 mg/dL 65 - 99 mg/dL [facility] Comment on above: Fasting reference interval Potassium [Moles/Vol] 4.1 mmol/L 3.5 - 5.3 mmol/L [facility] Protein [Mass/Vol] 7.3 g/dL 6.1 - 8.1 g/dL NO [facility] Sodium [Moles/Vol] 143 mmol/L 135 - 146 mmol/L [facility] TSH Qn 1.54 m[IU]/L [facility] U[facility] nitrogen [Mass/Vol] 16 mg/dL 7 - 25 mg/dL [facility] Urea nitrogen/Creatinine [Mass ratio] 26 mg/mg High [facility] 25-hydroxyvitamin D3 [Mass/Vol] 36 ng/mL 30 - 100 ng/mL [facility] Comment on above: Vitamin D Status 25- [place] Vitamin D: Deficiency: <20 ng/mL Insufficiency: 20 - 29 ng/mL Optimal: > or = 30 ng/mL For 25-OH Vitamin D testing on patients on D2-supplementation and patients for whom quantitation of D2 and D3 fractions is required, the QuestAssureD(TM) 25-OH VIT D, (D2,D3), LC/MS/MS is recommended: order code 12261 (patients >2yrs). See Note 1 Note 1 For additional information, please refer to http://education.[employer]/faq/JQS384 (This link is being provided for informational/ educational purposes only.) No Panel Informationon 01-07 Interpretation and review of laboratory results Abnormal [facility] Performing Organization Information Site ID: QPT Name: [facility] Address: [address] [place] [address], [address] [place] [id number] Director: Maninder Alves MD [facility] Vital Signs Date Time Vital Sign Value Performing Clinician Shadii adiliay 01-06-2024 13:04-0500 Body height 182.9 cm Marlene Moyer [employer]URE TEACHER Work Phone: [facility] 01-06-2024 13:04-0500 Diastolic blood pressure 80 mm[Hg] Marlene Moyer [employer] TEACHER Work Phone: [facility] 01-06-2024 13:04-0500 Heart rate 71 /min Marlene Moyer [employer]ICULTURE TEACHER Work Phone: [facility] 01-06-2024 13:04-0500 SaO2% (BldA) [Mass fraction] 93 % Marlene Moyer [employer]ITICULTURE TEACHER Work Phone: [facility] 01-06-2024 13:04-0500 Systolic blood pressure 118 mm[Hg] Marlene Moyer V[employer]ICULTURE TEACHER Work Phone: [facility] Encounters Encounter Date Encounter Type Care Provider Facility Start: 02-25-2024 End: 02-25-2024 Office outpatient new 45 minutes Abraham Pimentel MD Work Phone: [facility] Comment on above: Venous ulcer-leg syn drome, bilateral (CMS-HCC) (Primary Dx); 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 complications Start: 02-23-2024 End: 02-23-2024 Orders Only Hannah Solares [facility] Comment on above: EMMA (obstructive sle ep apnea) (Primary Dx) Start: 02-04-2024 Telephone encounter Yessi Mitchell MA [facility] Start: 01-21-2024 Telephone encounter Hannah díaz [facility] Start: 01-06-2024 End: 01-07-2024 ambulatory MARLENE MOYER Not Available Start: 01-06-2024 End: 01-06-2024 Office outpatient visit 25 minutes Marlene Moyer [employer] TEACHER Work Phone: [facility] Comment on [...] status (Z93.3) Start: 01-01-2024 Telephone encounter Marlene pierre [employer]URE TEACHER Work Phone: [facility] Start: 04-07-2023 End: 04-08-2023 ambulatory [facility] Facility:[facility]1 Start: 03-16-2023 End: 03-17-2023 ambulatory [facility] Facility:[facility] Start: 02-13-2023 End: 02-14-2023 ambulatory [facility] Facility:[facility] Start: 01-12-2023 End: 01-13-2023 ambulatory [facility] Facility:[facility]1 Start: 01-01-2023 End: 01-02-2023 ambulatory TATO YANG Facility:H1 Start: 12-22-2022 End: 12-23-2022 ambulatory SILVANA WETZEL Facility:H1 Start: 11-17-2022 End: 11-18-2022 ambulatory SILVANA WETZEL Facility:H1 Start: 10-21-2022 End: 10-22-2022 ambulatory SILVANA [...] with white cell differential, automated Marlene Moyer [employer] TE[employer]ER Work Phone: Start: 01-06-2024 End: 01-06-2024 Comprehensive metabolic panel Marlene Moyer [employer] TE[employer]ER Work Phone: Start: 01-06-2024 TSH W/REFLEX TO FT4 Praneeth Moyer [employer] TEACHER Work Phone: Start: 06-08-2023 H/O: colostomy Colostomy status Cassandra Moyer V[employer]URE TEACHER Work Phone: H/O: colostomy 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) Marlene Moyer [employer]ICULT[employer] TEACHER Work Phone: Plan of Treatment Date Care Activity Detail Author Start: 10-15-2024 Tobacco Screening Tobacco Screening [facility] [employer] Start: 03-01-2024 End: 08-27-2025 US.doppler Lower extremity vein - bilateral Vas venous duplex insufficiency lwr bi Vascular Ultrasound Routine Venous ulcer-leg syndrome, bilateral (CMS-HCC) 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 complications Expected: 03/01/2024 (Approximate), Expires: 08/27/2025 [facility] Work Phone: Comment on above: Expected: 03/01/2024 (Approximate), Expires: 08/27/2025 Start: 02-26-2024 Medicare Annual Wellness (AWV) Medicare Annual Wellness (AWV) [facility] Start: 02-25-2024 End: 02-25-2024 Patient encounter procedure 02/25/2024 1:30 PM EDT Office Visit [facility] [address] [place] [address] Abraham Pimentel MD [address], [address] [address] [facility] Start: 02-23-2024 End: 02-23-2024 Patient encounter procedure 02/23/2024 1:00 PM EDT Office Visit [facility] [address] [place] [id number] Marlene Moyer NP [address] [place] [address] [facility] Start: 02-11-2024 End: 02-11-2024 Patient encounter procedure 02/11/2024 2:50 PM EDT Office Visit [facility] [address] [place] [address] Abraham Pimentel MD [address], [facility] [address] [place] [address] [facility] Start: 07-31-2023 COVID-19 Vaccine ( season) COVID-19 Vaccine ( season) [facility] Start: 07-17-2023 Adult BMI Screening Adult BMI Screen ing [facility] Start: 2012 Fall Risk Screening Fall Risk Screen ing [facility] Start: 1966 DTaP,Tdap and Td Vaccines (1 - Tdap) DTaP,Tdap and Td Vaccines (1 - Tdap) [facility] Start: 1959 Depression Screening Depression Scre ening [facility] Start: 1947 Medicare Annual Wellness Visit Medicare Annual Wellness Visit [facility] Immunizations Immunization Date Immunization Notes Care Provider Fa cility 08-26-2023 Influenza, High-dose Seasonal, Quadrivalent, Preservative Free Marlene Kampfer [employer]ER Work Phone: [facility] 08-27-2022 Influenza, High-dose Seasonal, Quadrivalent, Preservative Free Marlene Kampfer [employer]URE TEACHER Work Phone: [facility] 08-27-2021 Influenza, High-dose Seasonal, Quadrivalent, Preservative Free Marlene Kampfer V[employer]ICULTURE TEACHER Work Phone: [facility] 02-06-2021 COVID-19 Vaccine, vector-nr, [id number], PF, 0.5mL Hannah Lafountain [facility] 11-22-2020 influenza, injectabl e, quadrivalent, contains preservative Marlene Kampfer [employer]IC[employer]URE TEACHER Work Phone: [facility] 09-26-2019 Influenza, High-dose Seasonal, Quadrivalent, Preservative Free Marlene Kampfer V[employer]ICULTURE TEACHER Work Phone: [facility] 09-06-2018 Influenza, High-dose Seasonal, Quadrivalent, Preservative Free Marlene Kampfer V[employer]ICULTURE TEACHER Work Phone: [facility] Work Phone: 09-21-2017 Influenza, High-dose Seasonal, Quadrivalent, Preservative Free Marlene Kampfer V[employer]ICULTURE TEACHER Work Phone: [facility] 09-15-2016 Influenza, High-dose Seasonal, Quadrivalent, Preservative Free Marlene Kampfer V[employer]ICULTURE TEACHER Work Phone: [facility] 05-01-2016 pneumococcal polysaccharide vaccine, 23 valent Marlene Kampfer [employer]URE TEACHER Work Phone: [facility] 09-10-2015 pneumococcal conjuga te vaccine, 13 valmarita Galewilygabby V[employer]ICULTURE TEACHER Work Phone: [facility] 11-30-2005 pneumococcal polysaccharide vaccine, 23 valent Marlene Galewilygabby V[employer]ICULTURE TEACHER Work Phone: [facility] Payers Date Payer Category Payer Medicare [id number] 1959 Unknown [id number] 1945 Unknown [id number] 2.16.84 [id number] 1947 Unknown [id number] 2.16.84 [id number] 1947 Unknown [id number] 2.16.84 [id number] 1947 Unknown [id number] 2.16.84 0.1.678757.3.579.2.593 1947 Unknown [id number] 2.16.84 [id number] 1947 Unknown [id number] 2.16.84 0.1.881819.3.579.2.593 1947 Unknown [id number] 2.16.84 0.1.639943.3.579.2.593 1947 Unknown [id number] 2.16.84 0.1.077325.3.579.2.593 1947 Unknown [id number] 2.16.84 0.1.233260.3.579.2.593 1947 Unknown [id number] 2.16.84 0.1.997948.3.579.2.593 1947 Unknown [id number] 2.16.84 0.1.041679.3.579.2.593 1947 Unknown [id number] 2.16.84 0.1.801947.3.579.2.593 1947 Unknown [id number] 2.16.84 0.1.902722.3.579.2.593 1947 Unknown [id number] 2.16.84 0.1.996589.3.579.2.593 1947 Unknown [id number] 2.16.84 0.1.381319.3.579.2.593 1947 Unknown [id number] 2.16.84 0.1.249999.3.579.2.593 1945 Unknown [id number] 2.16.84 0.1.810193.3.579.2.1259 1945 Unknown [id number] 2.16.84 [id number] Social History Date Type Detail Facility Start: 02-11-2018 End: 08-26-2023 Tobacco smoking status [facility] Never smoked tobacco [facility] Start: 02-11-2018 End: 08-26-2023 Tobacco use and exposure Smokeless tobacco non-user [facility] Start: 12-21-2023 End: 01-08-2024 Alcohol intake Ex-drinker (finding) [facility] Start: 12-10-2020 End: 08-26-2023 History of Social function [facility] Start: 12-10-2020 End: 08-26-2023 Tobacco use panel [facility] Start: 08-25-2023 Alcohol Comment caffeine: 1-2 cups per day [facility] Start: 1945 Sex Assigned At Not on file [facility] Within the last year , have you been afraid of your partner or ex-partner? Patient refused [facility] Are you now , , , , never or living with a partner? [facility] How often to you hav e a drink containing alcohol? Never [facility] The food that (I/we) bought just didn't last, and (I/we) didn't have money to get more. DK or Refused [facility] Start: 10-15-2023 Alcohol intake Current drinke r of alcohol (finding) [facility] Start: 11-03-2016 Alcohol Comment occasionally [facility] Goals Date Patient Goal Desired Activity /State Personal health goal Comment on above: Formatting of this n ote might be different from the original. Evaluation of progress towards goal: Safe dc transition from hospital to home with resumption of HHC. Clinical Notes 05-27-2022 to 02-25-2024 Assessment & Plan Note - Abraham Pimentel MD - 02/25/2024 6:32 PM EDTAssessment & Plan Note - Abraham Pimentel MD - 02/25/2024 6:32 PM EDTMjuan Pimentel MD - 02/25/2024 1:30 PM EDT Note Date & Type Note Facility 02-25-2024 Evaluation + Plan note Associated Problem(s): Venous ulcer-leg syndrome, bilateral (CMS-HCC) Venous reflux ultrasound Bilateral lower extremity ultrasound-guided injection sclerotherapy [facility] 02-25-2024 Miscellaneous Notes Associated Problem(s): Venous ulcer-leg syndrome, bilateral (CMS-HCC) Venous reflux ultrasound Bilateral lower extremity ultrasound-guided injection sclerotherapy documented in this encounter [facility] 02-25-2024 History of Present illness Narrative Images from the original note were not included. [facility] [address] [place] [id number] Subjective: Patient ID: Kj Mora is a 78 y.o. male. Chief Complaint No chief complaint on file. History of Present Illness: This is 78-year-old gentleman lower extremity venous ulcers. He has longstanding history were spent of years of varicose veins and multiple varicose vein treatment. He had venous ulcers were treated in the past. He is bilateral GSV were stripped He has recurrent venous ulcer in follow up wound clinic. Does not have recent ultrasound. We will get venous reflux ultrasound and we will do ultrasound-guided injection sclerotherapy of bilateral lower extremity with the vicinity of the ulcers and any associated perforators. Patient Active Problem List Diagnosis Neuromuscular weakness ([facility]) Restrictive lung disease due to kyphoscoliosis Obesity hypoventilation syndrome ([facility]) Essential hypertension EMMA treated with BiPAP Chronic respiratory failure with hypoxia and hypercapnia ([facility]) Iron deficiency Venous stasis ulcer of left lower leg with edema of left lower leg ([facility]) Paraplegia ([facility]) Cellulitis of right lower extremity Venous ulcer-leg syndrome, bilateral ([facility]) Current Outpatient Medications: amLODIPine (NORVASC) 5 mg tablet, Take 1 tablet (5 mg total) by mouth in the morning., Disp: , Rfl: ascorbic acid (VITAMIN C) 500 mg tablet, Take 1 tablet (500 mg total) by mouth in the morning., Disp: , Rfl: atorvastatin (LIPITOR) 20 mg tablet, Take 1 tablet (20 mg total) by mouth in the morning and 1 tablet (20 mg total) before bedtime., Disp: , Rfl: carvedilol (COREG) 6.25 mg tablet, Take 1 tablet (6.25 mg total) by mouth in the morning and 1 tablet (6.25 mg total) before bedtime., Disp: , Rfl: citalopram (CeleXA) 40 mg tablet, Take 1 tablet (40 mg total) by mouth in the morning., Disp: , Rfl: ferrous sulfate 325 (65 FE) mg tablet, Take 1 tablet (325 mg total) by mouth in the morning and 1 tablet (325 mg total) before bedtime., Disp: , Rfl: furosemide (LASIX) 20 mg tablet, Take 1 tablet (20 mg total) by mouth 2 (two) times a day., Disp: , Rfl: oxygen, Inhale 3-4 L/min as needed. , Disp: , Rfl: potassium chloride (KLOR-CON) 20 mEq packet, Take 1 packet (20 mEq total) by mouth in the morning., Disp: , Rfl: zinc sulfate (ZINCATE) 50 mg zinc (220 mg) capsule, Take 1 capsule (220 mg total) by mouth in the morning., Disp: , Rfl: Past Medical History: Diagnosis Date Anemia Chronic hypercapnic respiratory failure ([facility]) COPD (chronic obstructive pulmonary disease) ([facility]) Depression Disease of lung HTN (hypertension) Obesity EMMA (obstructive sleep apnea) Paraplegia ([facility]) Past Surgical History: Procedure Laterality Date COLOSTOMY ESOPHAGOGASTRODUODENOSCOPY PILONIDAL CYST / SINUS EXCISION VEIN SURGERY Left 07/15/2019 LT SSV EVLT / PHLEBS Family History Problem Relation Age of Onset Cancer Mother COPD Father Social History Socioeconomic History Marital status: Spouse name: Not on file Number of children: Not on file Years of education: Not on file Highest education level: Not on file Occupational History Not on file Tobacco Use Smoking status: Never Smokeless tobacco: Never Substance and Sexual Activity Alcohol use: Yes Alcohol/week: 0.0 standard drinks of alcohol Comment: occasionally Drug use: No Sexual activity: Not on file Other Topics Concern Not on file Social History Narrative Not on file Social Determinants of Health Financial Resource Strain: Not on file Food Insecurity: Not on file Transportation Needs: Not on file Physical Activity: Not on file Stress: Not on file Social Connections: Not on file Interpersonal Safety: Not on file Housing Instability: Not on file Allergies Allergen Reactions Adhesive Tape-Silicones The following portions of the patient's history were reviewed and updated as appropriate: allergies, current medications, past family history, past medical history, past social history, past surgical history and problem list. Review of Systems: Review of Systems Constitutional: Negative. HENT: Negative. Respiratory: Negative. Cardiovascular: Negative. Gastrointestinal: Negative. Endocrine: Negative. Genitourinary: Negative. Musculoskeletal: Negative. Skin: Negative. Neurological: Negative. Hematological: Negative. Objective: Vitals There were no vitals taken for this visit. Physical Exam Physical Exam Constitutional: Appearance: Normal appearance. HENT: Head: Normocephalic and atraumatic. Mouth/Throat: Mouth: Mucous membranes are moist. Eyes: Pupils: Pupils are equal, round, and reactive to light. Cardiovascular: Rate and Rhythm: Normal rate and regular rhythm. Pulmonary: Effort: Pulmonary effort is normal. Musculoskeletal: General: Normal range of motion. Cervical back: Normal range of motion. Skin: General: Skin is warm and dry. Capillary Refill: Capillary refill takes less than 2 seconds. Comments: Venous ulcers with Unna boot. Extensive varicosities bilateral lower extremities Neurological: General: No focal deficit present. Mental Status: He is alert and oriented to person, place, and time. Mental status is at baseline. Psychiatric: Mood and Affect: Mood normal. Behavior: Behavior normal. Thought Content: Thought content normal. Judgment: Judgment normal. Assesment: Diagnoses and all orders for this visit: Venous ulcer-leg syndrome, bilateral ([facility]) Plan Plan: This is 78-year-old gentleman lower extremity venous ulcers. He has longstanding history were spent of years of varicose veins and multiple varicose vein treatment. He had venous ulcers were treated in the past. He is bilateral GSV were stripped He has recurrent venous ulcer in follow up wound clinic. Does not have recent ultrasound. We will get venous reflux ultrasound and we will do ultrasound-guided injection sclerotherapy of bilateral lower extremity with the vicinity of the ulcers and any associated perforators. Abraham Pimentel MD, SUSIE, RPVI, FSVS, FACS JOBST Vascular Surgery documented in this encounter [facility] 02-04-2024 Miscellaneous Notes Received a new patient referral from patient wound care doctor. Called a left a voicemail for the patient to call back to schedule new [facility] documented in this encounter [facility] 02-04-2024 Telephone encounter Note Received a new patient referral from patient wound care doctor. Called a left a voicemail for the patient to call back to schedule new patient appointment [facility] 01-21-2024 Miscellaneous Notes Received copy of denial letter from Radha headley into [employer]. Emailed to Ines smith [facility] to clarify as office visit was complete and pt is compliant- unsure if denial is due to elevated AHI? documented in this encounter [facility] 01-21-2024 Telephone encounter Note Received copy of denial letter from Radha headley into [employer]. Emailed to Ines at [facility] to clarify as office visit was complete and pt is compliant- unsure if denial is due to elevated AHI? [facility] 01-06-2024 History of Present illness Narrative Kj Mora is a 78 y.o. male presents with chief complaint of Establish Care, Cellulitis, and Follow-up HPI: Patient is here to establish care and to follow-up on cellulitis. He went to wound care yesterday, they gave citalopram. He states he goes to [facility] to check legs pressure and vein [...] by wound center documented in this encounter [facility] 01-01-2024 Telephone encounter Note Ana from [facility] has concerns with pt stating that he seems more tired and his edema is more than normal. She would like to have labs ordered. Please call [phone] with orders. [facility] 01-01-2024 Miscellaneous Notes Ana from [facility] has concerns with pt stating that he seems more tired and his edema is more than normal. She would like to have labs ordered. Please call [phone] with orders. documented in this encounter [facility] 05-27-2022 Note PROCEDURE: XR FOOT R T [...] by: ELIEL WORTHINGTON Date: 2022-05-27 07:13 [facility] Evaluation note Diagnosis Cellulitis of right lower [...] (Z93.3) Colostomy status documented in this encounter [facility] HealthcareEvaluation note* Diagnosis EMMA (obstructive sleep apnea)- Primary Obstructive sleep apnea (adult) (pediatric) documented [facility]* Diagnosis Venous ulcer-leg syndrome, bilateral (CMS-HCC)- Primary 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 complications documented in this encounter [facility]Creative SystemInstructionsNot on filedocumented in this encounter [employer] Commun[facility] SystemInstructionsNot on filedocumented in this encounter [facility]Creative System Summary Purpose Family History No Family History Records FoundNo Family History Records Found Advance Directives Documents on File Type Date Recorded Patient Manager Bridge Expl anation Advance Directives and Living Will 09/15/2018 2001-05-13 Living Wi ll Advance Directives and Living Will 09/15/2018 2001-05-13 Health[facility] POA Latest Code Status on File Code Status Date Activated Date Inactivated Comments DNR Comfort Care Arrest (DNR-CCA) [place] 12/05/2020 7:21 P M 12/11/2020 6:03 PM Latest Code Status on File Code Status Date Activated Date Inactivated Comments DNR Comfort Care Arrest (DNR-CCA) [place] 12/05/2020 7:21 P M 12/11/2020 6:03 PM Reason for Referral Specialty Diagnoses / Procedures Referred By Corin ayala Referred To Contact Diagnoses Venous ulcer-leg syndrome, bilateral (CMS-HCC) 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 complications Procedures Vas venous duplex insufficiency lwr Abraham Trujillo MD [address], [address] [address] Referral ID Status Reason Start Date Expiration Date V isits Requested Visits Authorized [id number] Pending Review 02/25/2024 02/24/2025 1 1 Additional Source Comments (unrecognized sect ion and content) No Status Records FoundNo Status Records Found INFORMATION SOURCE (unrecogn ized section and content) DATE CREATED AUTHOR 04/08/2023 [facility] DATE CREATED AUTHOR AUTHOR'S ORGANIZ ATION 02/24/2024 [facility] Specialists EPIC Care Teams (unrecognized sec tion and content) Wound Care Center Consultant Relationship Specialty Start Date End Date Ines Cole MD [address] [place], [place] [id number] PCP - General Family Medicine 12/17/23 Marlene Moyer NP [address] [place] [address] Nurse Practitioner Family Medicine 12/17/23 W[facility] Care Center Consultant Relationship Specialty Start Date End Date Ines Cole MD [address] [facility] [place] [address] PCP - General Family Medicine 12/17/23 Marlene Moyer NP [address] [facility] [place] [address] Nurse Practitioner Family Medicine 12/17/23 W[facility] Care Center Consultant Relationship Specialty Start Date End Date Kerri Le DO [address] [facility] [place] [address] PCP - General Family Medicine 11/29/21 Wound Care Center Consultant Relationship Specialty Start Date End Date Kerri Le DO [address] [facility] [place] [address] PCP - General Family Medicine 11/29/21 Wound Care Center Consultant Relationship Specialty Start Date End Date Kerri Le DO [address] [facility] [place] [address] PCP - General Family Medicine 11/29/21 Reason for Visit (unrecogniz ed section and [...] BE BASED ON THE PRIMARY CLINICAL RECORDS. [employer] [facility]. provides no warranty or guarantee of the accuracy or completeness of information in this document.
[2024-03-17 10:16] VITALS: BP 99/62; PULSE 72; TEMP 36.7; O2SAT 92; BMI 34.1
[2024-03-17] MEDS: LACTATED RINGER'S SOLUTION 1,000 ML 50 ML IV (10:25)
[2024-03-17] MEDS: 0.9 % SODIUM CHLORIDE 10 ML SYRINGE - SALINE FLUSH INJ (12:38)
[2024-03-17] MEDS: SODIUM TETRADECYL SULFATE 3 % 60 MG/2 ML VIAL INJ (12:39)
[2024-03-17 12:55] VITALS: BP 110/60; PULSE 60; TEMP 37.2; O2SAT 99
--- NOTE | 2024-03-17 13:11 | PM.GSPRC ---
Date of procedure: 03/17/24 Indications for Procedure: 78-year-old gentleman with bilateral lower extremity venous ulcers. He had phlebectomies and stripping done in the past. He comes to us with nonhealing venous ulcers. He is here for ultrasound-guided injection sclerotherapy of bilateral lower extremity and Unna boot placement. Pre-op diagnosis: Bilateral lower extremity venous ulcers Post-op diagnosis: same as pre-op Procedure: Ultrasound-guided injection sclerotherapy of bilateral lower extremity varicose veins Findings: Multiple varicosities were injected in both lower extremities at the vicinity of the ulcers Implants: None Anesthesia: MAC Procedure Summary: The patient was taken back to the operating room placed in the supine position appropriate cardiopulmonary watches were set. Monitor incision care was induced. Both legs were prepped and draped up to the knee. Under ultrasound guidance 3% sodium citrate ducal diluted to 0.75% was used to inject multiple varicose veins in both lower extremities. This was done successfully and at the end Unna boots were placed in both lower extremities starting from the foot to above the ankle and the lower leg. This was done covering both wounds. Estimated blood loss (mL): 5 Specimens: No none Complications: No Pathology: none sent Condition: stable Disposition: PACU (Recommendation is to follow-up with the wound clinic for first Unna boot change. He will follow-up with me in my office with a EDWARD with [facility] in 2 to 4 weeks)
[2024-03-17 13:30] VITALS: BP 98/51; PULSE 68; O2SAT 90
[2024-03-17 14:04] VITALS: BP 85/48; PULSE 82; O2SAT 100
[2024-03-17 14:40] VITALS: BP 90/52; PULSE 76; O2SAT 94
[2024-03-17 15:10] VITALS: BP 91/42; PULSE 68; O2SAT 94
== END 2024-03-17 15:55 | disposition home or self-care (01) ==
PROVIDERS: PCP Family Medicine; Visit Provider Student in an Organized Health Care Education/Training Program
PROC: (CPT 36471; principal; 2024-03-17 12:00)
DX: I83.893 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 complications (principal); L97.919 Non-pressure chronic ulcer of unspecified part of right lower leg with unspecified severity; L97.929 Non-pressure chronic ulcer of unspecified part of left lower leg with unspecified severity; I83.209 Varicose veins of unspecified lower extremity with both ulcer of unspecified site and inflammation; G47.33 Obstructive sleep apnea (adult) (pediatric); I10 Essential (primary) hypertension; J96.11 Chronic respiratory failure with hypoxia; G82.20 Paraplegia, unspecified; E61.1 Iron deficiency; Z79.899 Other long term (current) drug therapy; Z99.81 Dependence on supplemental oxygen; J96.12 Chronic respiratory failure with hypercapnia; L03.115 Cellulitis of right lower limb; J44.9 Chronic obstructive pulmonary disease, unspecified; F32.A Depression, unspecified; J98.4 Other disorders of lung; Z93.3 Colostomy status; D64.9 Anemia, unspecified
CPT/HCPCS: 36471; 36415; J2704

== ENCOUNTER 2024-03-21 14:49 | Outpatient (OUT) | payer MEDICARE, SELFPAY | END 2024-03-21 14:50 | disposition home or self-care (01) | LOC: WC 14:49 | PROVIDERS: PCP Family Medicine; Visit Provider Podiatrist Foot & Ankle Surgery | DX: L89.512 Pressure ulcer of right ankle, stage 2 (principal); I87.312 Chronic venous hypertension (idiopathic) with ulcer of left lower extremity; L97.321 Non-pressure chronic ulcer of left ankle limited to breakdown of skin; L97.311 Non-pressure chronic ulcer of right ankle limited to breakdown of skin; L89.893 Pressure ulcer of other site, stage 3 | CPT/HCPCS: 29580 ==

== ENCOUNTER 2024-04-05 07:03 | Outpatient (OUT) | payer MEDICARE, SELFPAY ==
--- OUTSIDE RECORDS SUMMARY | 2024-04-05 07:07 | XMS_ITS | CCD ---
Author Organization [facility] Care Team Providers Care Strategic Development Manager Name Role Phone SILVANA WETZEL Admitting Unavailable [...] Unavaila brandon WETZEL, SILVANA Chowdhury Attending Unavailable HIGHLJESI, SILVANA Chowdhury [...] sources) Adhesive agent Drug allergy (disorder) [facility] Repository (4 sources) Adhesive Tape-Silicones Propensity to adverse reactions to drug 8 [facility] Medications Current Medications Medication Drug Class(es) Dates [...] Coronary arteriosclerosis; Translations: [Atherosclerotic heart disease of [place] coronary artery without angina pectoris] Onset: 06-08-2023 [...] Performing Organization Information Site ID: QPT Name: [employer] [facility] Address: [address] [place] [address], [address] [place] [phone] Director: Maninder Alves MD [facility] CBC W Auto Differential pane l (Bld)on 01-07-2024 Basophils (Bld) [#/Vol] 32 10*3/uL [facility] Basophils/100 WBC (Bld) 0.8 % [facility] Eosinophils (Bld) [#/Vol] 160 10*3/uL [facility] Eosinophils/100 WBC (Bld) 4.0 % [facility] Erythrocyte distribution width (RBC) [Ratio] 12.6 % 11.0 - 15.0 % [facility] Hematocrit (Bld) [Volume fraction] 37.7 % Low 38.5 - 50.0 % [facility] Hemoglobin (Bld) [Mass/Vol] 12.0 g/dL Low 13.2 - 17.1 g/dL [facility] Lymphocytes (Bld) [#/Vol] 664 10*3/uL Low [facility] Lymphocytes/100 WBC (Bld) 16.6 % [facility] MCH (RBC) [Entitic mass] 29.8 pg 27.0 - 33.0 pg [facility] MCHC (RBC) [Mass/Vol] 31.8 g/dL Low 32.0 - 36.0 g/dL [facility] MCV (RBC) [Entitic vol] 93.5 fL 80.0 - 100.0 fL [facility] Monocytes (Bld) [#/Vol] 452 10*3/uL [facility] Monocytes/100 WBC (Bld) 11.3 % [facility] Neutrophils (Bld) [#/Vol] 2692 10*3/uL [facility] Neutrophils/100 WBC (Bld) 67.3 % [facility] Platelet mean volume (Bld) [Entitic vol] 9.9 fL 7.5 - 12.5 fL [facility] Platelets (Bld) [#/Vol] 179 10*3/uL [facility] RBC (Bld) [#/Vol] 4.03 10*6/uL Low [facility] WBC (Bld) [#/Vol] 4.0 10*3/uL [facility] - Chemistry and C hemistry - challengeon 01-07-2024 Albumin [Mass/Vol] 3.9 g/dL 3.6 - 5.1 g/dL NO [facility] Albumin/Globulin [Mass ratio] 1.1 {ratio} [facility] ALP [Catalytic activity/Vol] 76 U/L 35 - 144 U/L [facility] ALT [Catalytic activity/Vol] 14 U/L 9 - 46 U/L [facility] AST [Catalytic activity/Vol] 18 U/L 10 - 35 U/L [facility] Bilirubin [Mass/Vol] 0.4 mg/dL 0.2 - 1.2 mg/dL [facility] Calcium [Mass/Vol] 9.0 mg/dL 8.6 - 10. 3 mg/dL [facility] Chloride [Moles/Vol] 103 mmol/L 98 - 110 mmol/L [facility] CO2 [Moles/Vol] 29 mmol/L 20 - 32 mmol/L [facility] Creatinine [Mass/Vol] 0.61 mg/dL Low 0.70 - 1.28 mg/dL [facility] GFR/1.73 sq M.predicted among non-blacks MDRD (S/P/Bld) [Vol rate/Area] 100 mL/min/{1.73_m2} > OR = 60 mL/min/1.73m2 [facility] Globulin (S) [Mass/Vol] 3.4 g/dL [facility] Glucose [Mass/Vol] 90 mg/dL 65 - 99 mg/dL [facility] Comment on above: Fasting reference interval Potassium [Moles/Vol] 4.1 mmol/L 3.5 - 5.3 mmol/L [facility] Protein [Mass/Vol] 7.3 g/dL 6.1 - 8.1 g/dL NO [facility] Sodium [Moles/Vol] 143 mmol/L 135 - 146 mmol/L [facility] TSH Qn 1.54 m[IU]/[facility] Urea nitrogen [Mass/Vol] 16 mg/dL 7 - 25 mg/dL [facility] Urea nitrogen/Creatinine [Mass ratio] 26 mg/mg High [facility] 25-hydroxyvitamin D3 [Mass/Vol] 36 ng/mL 30 - 100 ng/mL [facility] Comment on above: Vitamin D Status 25- [place] Vitamin D: Deficiency: <20 ng/mL Insufficiency: 20 - 29 ng/mL Optimal: > or = 30 ng/mL For 25-OH Vitamin D testing on patients on D2-supplementation and patients for whom quantitation of D2 and D3 fractions is required, the QuestAssureD(TM) 25-OH VIT D, (D2,D3), LC/MS/MS is recommended: order code 32314 (patients >2yrs). See Note 1 Note 1 For additional information, please refer to http://education.Storyvine/faq/MMJ650 (This link is being provided for informational/ educational purposes only.) No Panel Informationon 01-07 Interpretation and review of laboratory results Abnormal [facility] Performing Organization Information Site ID: QPT Name: [employer] [facility] Address: [address] [place] [address], [address] [place] [phone] Director: Maninder Alves MD [facility] Vital Signs Date Time Vital Sign Value Performing Clinician Shadii adiliay 01-06-2024 13:04-0500 Body height 182.9 cm Marlene Moyer WHARF WORKER Work Phone: [facility] 01-06-2024 13:04-0500 Diastolic blood pressure 80 mm[Hg] Marlene Moyer WHARF WORKER Work Phone: [facility] 01-06-2024 13:04-0500 Heart rate 71 /min Marlene Moyer WHARF WORKER Work Phone: [facility] 01-06-2024 13:04-0500 SaO2% (BldA) [Mass fraction] 93 % Marlene Moyer WHARF WORKER Work Phone: [facility] 01-06-2024 13:04-0500 Systolic blood pressure 118 mm[Hg] Marlene Moyer WHARF WORKER Work Phone: [facility] Encounters Encounter Date Encounter Type Care Provider [...] Office outpatient visit 25 minutes Marlene Moyer WHARF WORKER Work Phone: [facility] Comment on [...] (Z93.3) Start: 01-01-2024 Telephone encounter Marlene pierre WHARF WORKER Work Phone: [facility] Start: 04-07-2023 End: 04-08-2023 ambulatory [facility] Facility:H1 Start: 03-16-2023 End: 03-17-2023 ambulatory [facility] Facility:H1 Start: 02-13-2023 End: 02-14-2023 ambulatory [facility] Facility:H1 Start: 01-12-2023 End: 01-13-2023 ambulatory [facility] Facility:H1 Start: 01-01-2023 End: 01-02-2023 ambulatory [...] with white cell differential, automated Marlene Moyer WHARF WORKER Work Phone: Start: 01-06-2024 End: 01-06-2024 Comprehensive metabolic panel Marlene Moyer WHARF WORKER Work Phone: Start: 01-06-2024 TSH W/REFLEX TO FT4 Praneeth Moyer WHARF WORKER Work Phone: Start: 06-08-2023 H/O: colostomy Colostomy status Cassandra Moyer WHARF WORKER Work Phone: H/O: colostomy 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) Marlene Moyer WHARF WORKER Work Phone: Plan of Treatment Date Care Activity Detail Author Start: 10-15-2024 Tobacco Screening Tobacco Screening [facility] [employer] Start: 03-01-2024 End: 08-27-2025 US.doppler Lower extremity vein - bilateral Vas venous duplex insufficiency lwr bi Vascular Ultrasound Routine Venous ulcer-leg syndrome, bilateral (CMS-HCC) 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 complications Expected: 03/01/2024 (Approximate), Expires: 08/27/2025 [facility] Work Phone: Comment on above: Expected: 03/01/2024 (Approximate), Expires: 08/27/2025 Start: 02-26-2024 Medicare Annual Wellness (AWV) Medicare Annual Wellness (AWV) [facility] Start: 02-25-2024 End: 02-25-2024 Patient encounter procedure 02/25/2024 1:30 PM EDT Office Visit [facility] [address] [place] [address] Abraham Pimentel MD [address], [address] [address] [facility] Start: 02-23-2024 End: 02-23-2024 Patient encounter procedure 02/23/2024 1:00 PM EDT [facility] [address] [place] [phone] Marlene Moyer NP [address] [place] [address] [facility] Start: 02-11-2024 End: 02-11-2024 Patient encounter procedure 02/11/2024 2:50 PM EDT Office Visit [facility] [address] [place] [address] Abraham Pimentel MD [address], [facility] [address] [place] [address] [facility] Start: 07-31-2023 COVID-19 Vaccine ( season) COVID-19 Vaccine ( season) [facility] Start: 07-17-2023 Adult BMI Screening Adult BMI Screen ing [facility] Start: 2012 Fall Risk Screening Fall Risk Screen ing [facility] Start: 1966 DTaP,Tdap and Td Vaccines (1 - Tdap) DTaP,Tdap and Td Vaccines (1 - Tdap) [facility] Start: 1959 Depression Screening Depression Scre ening [facility] Start: 1945 Medicare Annual Wellness Visit Medicare Annual Wellness Visit [facility] Immunizations Immunization Date Immunization Notes Care Provider Fa cility 08-26-2023 Influenza, High-dose Seasonal, Quadrivalent, Preservative Free Marlene Kampfer WHARF WORKER Work Phone: [facility] 08-27-2022 Influenza, High-dose Seasonal, Quadrivalent, Preservative Free Marlene Kampfer WHARF WORKER Work Phone: [facility] 08-27-2021 Influenza, High-dose Seasonal, Quadrivalent, Preservative Free Marlene Kampfer WHARF WORKER Work Phone: [facility] 02-06-2021 COVID-19 Vaccine, vector-nr, rS-Ad26, PF, 0.5mL Hannah Lafountain [facility] 11-22-2020 influenza, injectabl e, quadrivalent, contains preservative Marlene Kampfer WHARF WORKER Work Phone: [facility] 09-26-2019 Influenza, High-dose Seasonal, Quadrivalent, Preservative Free Marlene Kampfer WHARF WORKER Work Phone: [facility] 09-06-2018 Influenza, High-dose Seasonal, Quadrivalent, Preservative Free Marlene Kampfer WHARF WORKER Work Phone: [facility] Work Phone: 09-21-2017 Influenza, High-dose Seasonal, Quadrivalent, Preservative Free Marlene Kampfer WHARF WORKER Work Phone: [facility] 09-15-2016 Influenza, High-dose Seasonal, Quadrivalent, Preservative Free Marlene Kampfer WHARF WORKER Work Phone: [facility] 05-01-2016 pneumococcal polysaccharide vaccine, 23 valent Marlene Kampfer WHARF WORKER Work Phone: [facility] 09-10-2015 pneumococcal conjuga te vaccine, 13 valmarita Galewilygabby WHARF WORKER Work Phone: [facility] 11-30-2005 pneumococcal polysaccharide vaccine, 23 valent Marlene Galewilygabby WHARF WORKER Work Phone: [facility] Payers Date Payer Category Payer Medicare [id number] 1959 Unknown [id number] 1945 Unknown [id number] 2.16.84 [id number] 1947 Unknown [id number] 2.16.84 0.1.962375.3.579.2.593 1945 Unknown [id number] 2.16.84 0.1.031867.3.579.2.593 1947 Unknown [id number] 2.16.84 0.1.531459.3.579.2.593 1947 Unknown [id number] 2.16.84 0.1.383160.3.579.2.593 1947 Unknown [id number] 2.16.84 0.1.543861.3.579.2.593 1947 Unknown [id number] 2.16.84 0.1.529674.3.579.2.593 1947 Unknown [id number] 2.16.84 0.1.705449.3.579.2.593 1947 Unknown [id number] 2.16.84 0.1.984292.3.579.2.593 1947 Unknown [id number] 2.16.84 0.1.223124.3.579.2.593 1947 Unknown [id number] 2.16.84 0.1.977582.3.579.2.593 1947 Unknown [id number] 2.16.84 0.1.707834.3.579.2.593 1947 Unknown [id number] 2.16.84 0.1.936498.3.579.2.593 1947 Unknown [id number] 2.16.84 0.1.942574.3.579.2.593 1947 Unknown [id number] 2.16.84 0.1.592434.3.579.2.593 1947 Unknown [id number] 2.16.84 0.1.347275.3.579.2.593 1947 Unknown [id number] 2.16.84 0.1.833723.3.579.2.1259 1945 Unknown [id number] 2.16.84 0.1.931461.3.579.2.1259 Social History Date Type Detail Facility Start: 02-11-2018 End: 08-26-2023 Tobacco smoking status [facility] Never smoked tobacco [facility] Start: 02-11-2018 End: 08-26-2023 Tobacco use and exposure Smokeless tobacco non-user [facility] Start: 12-21-2023 End: 01-08-2024 Alcohol intake Ex-drinker (finding) [facility] Start: 12-10-2020 End: 08-26-2023 History of Social function [facility] Start: 12-10-2020 End: 08-26-2023 Tobacco use panel [facility] Start: 08-25-2023 Alcohol Comment caffeine: 1-2 cups per day [facility] Start: 1945 Sex Assigned At Not [...] intake Current drinke r of alcohol (finding) [facility] Start: 11-03-2016 Alcohol Comment occasionally [facility] Goals Date Patient Goal [...] PM EDTAssessment & Plan Note - Abraham Pmientel MD - 02/25/2024 6:32 PM EDTMjuan Pimentel MD - 02/25/2024 1:30 PM EDT Note Date & Type Note Facility 02-25-2024 Evaluation + Plan note Associated Problem(s): Venous ulcer-leg syndrome, bilateral (CMS-HCC) Venous reflux ultrasound Bilateral lower extremity ultrasound-guided injection sclerotherapy [facility] 02-25-2024 Miscellaneous Notes Associated Problem(s): Venous ulcer-leg syndrome, bilateral (CMS-HCC) Venous reflux ultrasound Bilateral lower extremity ultrasound-guided injection sclerotherapy documented in this encounter [facility] 02-25-2024 History of Present illness Narrative Images from the original note were not included. [facility] [address] [place] [phone] Subjective: Patient ID: Kj Mora is a [...] Patient Active Problem List Diagnosis Neuromuscular weakness ([facility]) Restrictive lung disease due to kyphoscoliosis Obesity hypoventilation syndrome ([facility]) Essential hypertension EMMA treated with BiPAP Chronic respiratory failure with hypoxia and hypercapnia ([facility]) Iron deficiency Venous stasis ulcer of left lower leg with edema of left lower leg ([facility]) Paraplegia ([facility]) Cellulitis of right lower extremity Venous ulcer-leg syndrome, bilateral ([facility]) Current Outpatient Medications: amLODIPine (NORVASC) 5 mg [...] Diagnosis Date Anemia Chronic hypercapnic respiratory failure ([facility]) COPD (chronic obstructive pulmonary disease) ([facility]) Depression Disease of lung HTN (hypertension) Obesity EMMA (obstructive sleep apnea) Paraplegia ([facility]) Past Surgical History: Procedure Laterality Date COLOSTOMY [...] for this visit: Venous ulcer-leg syndrome, bilateral ([facility]) Plan Plan: This is 78-year-old gentleman lower [...] JOBST Vascular Surgery documented in this encounter [facility] 02-04-2024 Miscellaneous Notes Received a new patient referral from patient wound care doctor. Called a left a voicemail for the patient to call back to schedule new patient appointment with Dr. Pimentel in [facility] documented in this encounter [facility] 02-04-2024 Telephone encounter Note Received a new patient referral from patient wound care doctor. Called a left a voicemail for the patient to call back to schedule new patient appointment with Dr. Pimentel in [facility] 01-21-2024 Miscellaneous Notes Received copy of denial letter from Radha headley into [employer]. Emailed to Ines smith [facility] to clarify as office visit was complete and pt is compliant- unsure if denial is due to elevated AHI? documented in this encounter [facility] 01-21-2024 Telephone encounter Note Received copy of denial letter from Radha headley into office manager. Emailed to Ines at [facility] to clarify as office visit was complete and pt is compliant- unsure if denial is due to elevated AHI? [facility] 01-06-2024 History of Present illness Narrative Kj Mora is a 78 y.o. male presents with chief complaint of Establish Care, Cellulitis, and Follow-up HPI: Patient is here to establish care and to follow-up on cellulitis. He went to wound care yesterday, they gave citalopram. He states he goes to [facility] to check legs pressure and vein flow. [...] by wound center documented in this encounter [facility] 01-01-2024 Telephone encounter Note Ana from [facility] has concerns with pt stating that he seems more tired and his edema is more than normal. She would like to have labs ordered. Please call [phone] with orders. [facility] 01-01-2024 Miscellaneous Notes Ana from [facility] has concerns with pt stating that he seems more tired and his edema is more than normal. She would like to have labs ordered. Please call [phone] with orders. documented in this encounter [facility] 05-27-2022 Note PROCEDURE: XR FOOT R T [...] by: ELIEL WORTHINGTON Date: 2022-05-27 07:13 [facility] Evaluation note Diagnosis Cellulitis of [...] (Z93.3) Colostomy status [facility] Diagnosis EMMA (obstructive sleep apnea)- Primary Obstructive sleep apnea (adult) (pediatric) documented in this encounter [facility]* Diagnosis Venous ulcer-leg syndrome, bilateral (CMS-HCC)- Primary 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 complications documented in this [facility] SystemInstructionsNot on filedocumented in this encounter [facility] SystemInstructionsNot on filedocumented in this encounter [facility] Summary Purpose Family History No Family History Records FoundNo Family History Records Found Advance Directives Documents on File Type Date Recorded 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 Advance Directives and Living Will 09/15/2018 2001-05-13 Living Wi ll Advance Directives and Living Will 09/15/2018 2001-05-13 Health[facility] POA Latest Code Status on File Code Status Date Activated Date Inactivated Comments DNR Comfort Care Arrest (DNR-CCA) [place] 12/05/2020 7:21 P M 12/11/2020 6:03 PM Latest Code Status on File Code Status Date Activated Date Inactivated Comments DNR Comfort Care Arrest (DNR-CCA) [place] 12/05/2020 7:21 P M 12/11/2020 6:03 PM Reason for Referral Specialty Diagnoses / Procedures Referred By Corin ayala Referred To Contact Diagnoses Venous ulcer-leg syndrome, bilateral (CMS-HCC) 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 complications Procedures Vas venous duplex insufficiency lwr Abraham Trujillo MD [address], [address] [address] Referral ID Status Reason Start Date Expiration Date V isits Requested Visits Authorized [id number] Pending Review 02/25/2024 02/24/2025 1 1 Additional Source Comments (unrecognized sect ion and content) No Status Records FoundNo Status Records Found INFORMATION SOURCE (unrecogn ized section and content) DATE CREATED AUTHOR 04/08/2023 [facility] DATE CREATED AUTHOR AUTHOR'S ORGANIZ ATION 02/24/2024 [facility] EPIC Care Teams (unrecognized sec tion and content) Strategic Development Manager Relationship Specialty Start Date End Date Ines Cole MD [address] [place], [place] [id number] PCP - General Family Medicine 12/17/23 Marlene Moyer NP [address] [place] [address] Nurse Practitioner Family Medicine 12/17/23 Strategic Development Manager Relationship Specialty Start Date End Date Ines Cole MD [address] [facility] [place] [address] PCP - General Family Medicine 12/17/23 Marlene Moyer NP [address] [facility] [place] [address] Nurse Practitioner Family Medicine 12/17/23 Strategic Development Manager Relationship Specialty Start Date End Date Kerri Le DO [address] [facility] [place] [address] PCP - General Family Medicine 11/29/21 Strategic Development Manager Relationship Specialty Start Date End Date Kerri Le DO [address] [facility] [place] [address] PCP - General Family Medicine 11/29/21 Strategic Development Manager Relationship Specialty Start Date End Date Kerri Le DO [address] [facility] [place] [address] PCP - General Family Medicine 11/29/21 Reason [...] BE BASED ON THE PRIMARY CLINICAL RECORDS. [employer] [facility]. provides no warranty or guarantee of the accuracy or completeness of information in this document.
--- NOTE | 2024-04-05 08:00 | CA_ITS ---
[facility] Test Date: 2024-04-05 Pat Name: ELPIDIO LEI Department: Room: - Gender: Male Mat Repairer: : 1945 Requested By: [id number] Order Number: [id number] Reading MD: DERIC ANDRADE Interpretive Statements Monophasic waveforms RLE PVR waveforms with normal upstroke, amplitude and dicrotic notch. Right: - no significant pressure gradient between cuffs - abnormal EDWARD Left: - no significant pressure gradient between cuffs - abnormal EDWARD Impression: - Elevated indices throughout, consistent with calcified, noncompressible arterial cabrera, which may underestimate the degree of arterial disease present. - Results are nondiagnostic due to noncompressible arterial cabrera. Electronically Signed On 04-05-2024 22:50:14 EDT by DERIC ANDRADE
== END 2024-04-05 07:04 | disposition home or self-care (01) ==
LOC: CARD 07:05
PROVIDERS: PCP Family Medicine; Visit Provider Student in an Organized Health Care Education/Training Program
DX: I73.9 Peripheral vascular disease, unspecified (principal)
CPT/HCPCS: 93923

== ENCOUNTER 2024-04-11 14:33 | Outpatient (OUT) | payer MEDICARE, SELFPAY | END 2024-04-11 14:34 | disposition home or self-care (01) | LOC: WC 14:33 | PROVIDERS: PCP Family Medicine; Visit Provider Physician Assistant | DX: I87.312 Chronic venous hypertension (idiopathic) with ulcer of left lower extremity (principal); L97.311 Non-pressure chronic ulcer of right ankle limited to breakdown of skin; L97.321 Non-pressure chronic ulcer of left ankle limited to breakdown of skin; L97.512 Non-pressure chronic ulcer of other part of right foot with fat layer exposed; R60.0 Localized edema; L89.512 Pressure ulcer of right ankle, stage 2 | CPT/HCPCS: 29580 ==

== ENCOUNTER 2024-05-09 15:39 | Outpatient (OUT) | payer MEDICARE, SELFPAY | END 2024-05-09 15:40 | disposition home or self-care (01) | LOC: WC 15:39 | PROVIDERS: PCP Family Medicine; Visit Provider Physician Assistant | DX: I87.312 Chronic venous hypertension (idiopathic) with ulcer of left lower extremity (principal); L97.321 Non-pressure chronic ulcer of left ankle limited to breakdown of skin; L97.512 Non-pressure chronic ulcer of other part of right foot with fat layer exposed; L97.311 Non-pressure chronic ulcer of right ankle limited to breakdown of skin; L89.893 Pressure ulcer of other site, stage 3 | CPT/HCPCS: 29580 ==

== ENCOUNTER 2024-06-06 16:05 | Outpatient (OUT) | payer MEDICARE, SELFPAY ==
--- OUTSIDE RECORDS SUMMARY | 2024-06-06 16:37 | XMS_ITS | CCD ---
Author Organization [facility] Care Team Providers Care Skidder Lever Operator Name Role Phone SILVANA WETZEL Admitting Unavailable SILVANA WETZEL Attending Unavailable REQUEST, NONE LISTED Primary Care Unavaila brandon WETZEL, SILVANA Chowdhury Admitting Unavailable SILVANA WETZEL Attending [...] Primary Care Unavaila SILVANA Cobb Attending Unavailable HIGHLSILVANA DENNISON Attending Unavailable DAMARI, SILVANA Chowdhury Admitting Unavailable REQUEST, NONE LISTED Primary Care Unavaila SILVANA Cobb Admitting Unavailable REQUEST, DR BECERRIL LISTED Primary Care Unavaila SILVANA Cobb Attending Unavailable TATO YANG Admitting Unavailable TATO YANG Attending Unavailable MISC, DR RODRIGUEZ Primary Care Unavailable TATO YANG Consulting Unavailable SILVANA WETZEL Attending Unavailable SILVANA WETZEL Admitting Unavailable REQUEST, NONE LISTED Primary Care Unavaila SILVANA Cobb Admitting Unavailable REQUEST, NONE LISTED Primary Care Unavaila SILVANA Cobb Attending Unavailable HIGHLSILVANA DENNISON Admitting Unavailable SILVANA WETZEL Attending Unavailable REQUEST, NONE LISTED Primary Care Unavaila SILVANA Cobb Admitting Unavailable REQUEST, NONE LISTED Primary Care Unavaila SILVANA Cobb Attending Unavailable SILVANA WETZEL Attending Unavailable SILVANA WETZEL Admitting Unavailable REQUEST, NONE LISTED Primary Care Unavaila SILVANA Cobb Attending Unavailable SILVANA WETZEL Admitting Unavailable REQUEST, NONE LISTED Primary Care Unavaila SILVANA Cobb Attending Unavailable HIGHLSILVANA DENNISON Admitting Unavailable REQUEST, NONE LISTED Primary Care UnavailSILVANA Burgos Attending Unavailable SILVANA WETZEL Admitting Unavailable REQUEST, NONE LISTED Primary Care UnavailInes Horn MD Primary Care Provider Marlene Moyer NP Unavailable Kerri Le DO Primary Care Provider MARLENE MOYER Attending Unavailable MARLENE MOYER Attending Unavailable Allergies Allergy Classification Reported Allergen(s) Allergy Type Date of Onset Reaction(s) Facility (2 sources) Adhesive agent Drug allergy (disorder) [facility] Repository (4 sources) Adhesive Tape-Silicones Propensity to adverse reactions to drug 8 [facility] Medications Current Medications Medication Drug [...] 325 mg oral tablet (7 sources) Start: 023 take [...] capsule (3 sources) Proton Pump Inhibitor Start: 023 omeprazole (PriLOSEC) [address] capsule Indications: [...] Coronary arteriosclerosis; Translations: [Atherosclerotic heart disease of [place] coronary artery without angina pectoris] Onset: 06-08-2023 [...] Performing Organization Information Site ID: QPT Name: [employer] [facility] Address: [address] [place] [address], [address] [place] [phone] Director: Maninder Alves MD [facility] CBC W Auto Differential pane l (Bld)on 01-07-2024 Basophils (Bld) [#/Vol] 32 10*3/uL [facility] Basophils/100 WBC (Bld) 0.8 % [facility] Eosinophils (Bld) [#/Vol] 160 10*3/uL [facility] Eosinophils/100 WBC (Bld) 4.0 % [facility] Erythrocyte distribution width (RBC) [Ratio] 12.6 % 11.0 - 15.0 % [facility] Hematocrit (Bld) [Volume fraction] 37.7 % Low 38.5 - 50.0 % [facility] Hemoglobin (Bld) [Mass/Vol] 12.0 g/dL Low 13.2 - 17.1 g/dL [facility] Lymphocytes (Bld) [#/Vol] 664 10*3/uL Low [facility] Lymphocytes/100 WBC (Bld) 16.6 % [facility] MCH (RBC) [Entitic mass] 29.8 pg 27.0 - 33.0 pg [facility] MCHC (RBC) [Mass/Vol] 31.8 g/dL Low 32.0 - 36.0 g/dL [facility] Healthcare MCV (RBC) [Entitic vol] 93.5 fL 80.0 - 100.0 fL [facility] Monocytes (Bld) [#/Vol] 452 10*3/uL [facility] Monocytes/100 WBC (Bld) 11.3 % [facility] Neutrophils (Bld) [#/Vol] 2692 10*3/uL [facility] Neutrophils/100 WBC (Bld) 67.3 % [facility] Platelet mean volume (Bld) [Entitic vol] 9.9 fL 7.5 - 12.5 fL [facility] Healthc are Platelets (Bld) [#/Vol] 179 10*3/uL [facility] RBC (Bld) [#/Vol] 4.03 10*6/uL Low [facility] WBC (Bld) [#/Vol] 4.0 10*3/uL [facility] - Chemistry and C hemistry - challengeon 01-07-2024 Albumin [Mass/Vol] 3.9 g/dL 3.6 - 5.1 g/dL NO [facility] Albumin/Globulin [Mass ratio] 1.1 {ratio} [facility] ALP [Catalytic activity/Vol] 76 U/L 35 - 144 U/L [facility] ALT [Catalytic activity/Vol] 14 U/L 9 - 46 U/L [facility] AST [Catalytic activity/Vol] 18 U/L 10 - 35 U/L [facility] Bilirubin [Mass/Vol] 0.4 mg/dL 0.2 - 1.2 mg/dL [facility] Calcium [Mass/Vol] 9.0 mg/dL 8.6 - 10. 3 mg/dL [facility] Chloride [Moles/Vol] 103 mmol/L 98 - 110 mmol/L [facility] CO2 [Moles/Vol] 29 mmol/L 20 - 32 mmol/L [facility] Creatinine [Mass/Vol] 0.61 mg/dL Low 0.70 - 1.28 mg/dL [facility] GFR/1.73 sq M.predicted among non-blacks MDRD (S/P/Bld) [Vol rate/Area] 100 mL/min/{1.73_m2} > OR = 60 mL/min/1.73m2 [facility] Globulin (S) [Mass/Vol] 3.4 g/dL [facility] Glucose [Mass/Vol] 90 mg/dL 65 - 99 mg/dL [facility] Comment on above: Fasting reference interval Potassium [Moles/Vol] 4.1 mmol/L 3.5 - 5.3 mmol/L [facility] Protein [Mass/Vol] 7.3 g/dL 6.1 - 8.1 g/dL NO [facility] Sodium [Moles/Vol] 143 mmol/L 135 - 146 mmol/L [facility] TSH Qn 1.54 m[IU]/[facility] U[facility] nitrogen [Mass/Vol] 16 mg/dL 7 - 25 mg/dL [facility] Urea nitrogen/Creatinine [Mass ratio] 26 mg/mg High [facility] 25-hydroxyvitamin D3 [Mass/Vol] 36 ng/mL 30 - 100 ng/mL [facility] Comment on above: Vitamin D Status 25- [place] Vitamin D: Deficiency: <20 ng/mL Insufficiency: 20 - 29 ng/mL Optimal: > or = 30 ng/mL For 25-OH Vitamin D testing on patients on D2-supplementation and patients for whom quantitation of D2 and D3 fractions is required, the QuestAssureD(TM) 25-OH VIT D, (D2,D3), LC/MS/MS is recommended: order code 56854 (patients >2yrs). See Note 1 Note 1 For additional information, please refer to http://education.Mashape/faq/AAK943 (This link is being provided for informational/ educational purposes only.) No Panel Informationon 01-07 Interpretation and review of laboratory results Abnormal [facility] Performing Organization Information Site ID: QPT Name: [employer] [facility] Address: [address] [place] [address], [address] [place] [phone] Director: Maninder Alves MD [facility] Vital Signs Date Time Vital Sign Value Performing Clinician Faci lity 01-06-2024 13:04-0500 Body height 182.9 cm Marlene Moyer SNUFF PACKING MACHINE OPERATOR Work Phone: [facility] 01-06-2024 13:04-0500 Diastolic blood pressure 80 mm[Hg] Marlene Moyer SNUFF PACKING MACHINE OPERATOR Work Phone: [facility] 01-06-2024 13:04-0500 Heart rate 71 /min Marlene Moyer SNUFF PACKING MACHINE OPERATOR Work Phone: [facility] 01-06-2024 13:04-0500 SaO2% (BldA) [Mass fraction] 93 % Marlene Moyer NP Work Phone: [facility] 01-06-2024 13:04-0500 Systolic blood pressure 118 mm[Hg] Marlene Moyer SNUFF PACKING MACHINE OPERATOR Work Phone: [facility] Encounters Encounter Date Encounter Type Care Provider [...] Office outpatient visit 25 minutes Marlene Moyer SNUFF PACKING MACHINE OPERATOR Work Phone: [facility] Comment [...] (Z93.3) Start: 01-01-2024 Telephone encounter Marlene pierre SNUFF PACKING MACHINE OPERATOR Work Phone: [facility] Start: 04-07-2023 End: 04-08-2023 ambulatory [facility] Facility:H1 Start: 03-16-2023 End: 03-17-2023 ambulatory [facility] Facility:H1 Start: 02-13-2023 End: 02-14-2023 ambulatory [facility] Facility:H1 Start: 01-12-2023 End: 01-13-2023 ambulatory [facility] Facility:H1 Start: 01-01-2023 End: 01-02-2023 ambulatory TATO YANG Facility:H1 Start: 12-22-2022 End: 12-23-2022 ambulatory SILVANA WETZEL Facility:H1 Start: 11-17-2022 End: 11-18-2022 ambulatory SILVANA WETZEL Facility:H1 Start: 10-21-2022 End: 10-22-2022 ambulatory SILVANA WETZEL Facility:H1 Start: 09-30-2022 End: 10-01-2022 [facility] Start: 09-08-2022 End: 09-09-2022 ambulatory SILVANA WETZEL Facility:H1 Start: 08-12-2022 End: 08-13-2022 ambulatory SILVANA WETZEL Facility:H1 Start: 07-29-2022 End: 07-30-2022 ambulatory SILVANA WETZEL Facility:H1 Start: 07-18-2022 End: 07-19-2022 ambulatory SILVANA WETZEL Facility:H1 Start: 06-17-2022 End: 06-18-2022 ambulatory [facility] Start: 05-26-2022 End: 05-27-2022 ambulatory SILVANA WETZEL Facility:H1 Start: 05-05-2022 End: 05-06-2022 ambulatory SILVANA WETZEL Facility:H1 Procedures Date Procedure Procedure Detail Performing Clinician Start: 01-06-2024 Complete blood count with white cell differential, automated Marlene Moyer SNUFF PACKING MACHINE OPERATOR Work Phone: Start: 01-06-2024 End: 01-06-2024 Comprehensive metabolic panel Marlene Moyer SNUFF PACKING MACHINE OPERATOR Work Phone: Start: 01-06-2024 TSH W/REFLEX TO FT4 Praneeth Moyer SNUFF PACKING MACHINE OPERATOR Work Phone: Start: 06-08-2023 H/O: colostomy Colostomy status Cassandra Moyer SNUFF PACKING MACHINE OPERATOR Work Phone: H/O: colostomy 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) Marlene Moyer SNUFF PACKING MACHINE OPERATOR Work Phone: Plan of Treatment Date Care Activity Detail Author Start: 10-15-2024 Tobacco Screening Tobacco Screening [facility] Start: 03-01-2024 End: 08-27-2025 US.doppler Lower extremity vein - bilateral Vas venous duplex insufficiency lwr bi Vascular Ultrasound Routine Venous ulcer-leg syndrome, bilateral (CMS-HCC) 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 complications Expected: 03/01/2024 (Approximate), Expires: 08/27/2025 [facility] Work Phone: Comment on above: Expected: 03/01/2024 (Approximate), Expires: 08/27/2025 Start: 02-26-2024 Medicare Annual Wellness (AWV) Medicare Annual Wellness (AWV) [facility] Start: 02-25-2024 End: 02-25-2024 Patient encounter procedure 02/25/2024 1:30 PM EDT Office Visit [facility] [address] [place] [address] Abraham Pimentel MD [address], [facility] [address] [place] [address] [facility] Start: 02-23-2024 End: 02-23-2024 Patient encounter procedure 02/23/2024 1:00 PM EDT [facility] [address] [place] [address] Marlene Moyer NP [address] [place] [address] [facility] Start: 02-11-2024 End: 02-11-2024 Patient encounter procedure 02/11/2024 2:50 PM EDT Office Visit [facility] [address] [place] [address] Abraham Pimentel MD [address], [facility] [address] [place] [address] [facility] Start: 07-31-2023 COVID-19 Vaccine ( season) COVID-19 Vaccine ( season) [facility] Start: 07-17-2023 Adult BMI Screening Adult BMI Screen ing [facility] Start: 2012 Fall Risk Screening Fall Risk Screen ing [facility] Start: 1966 DTaP,Tdap and Td Vaccines (1 - Tdap) DTaP,Tdap and Td Vaccines (1 - Tdap) [facility] Start: 1959 Depression Screening Depression Scre otf [facility] Start: 1947 Medicare Annual Wellness Visit Medicare Annual Wellness Visit [facility] Immunizations Immunization Date Immunization Notes Care Provider Fa cility 08-26-2023 Influenza, High-dose Seasonal, Quadrivalent, Preservative Free Marlene Kampfer SNUFF PACKING MACHINE OPERATOR Work Phone: [facility] 08-27-2022 Influenza, High-dose Seasonal, Quadrivalent, Preservative Free Marlene Kampfer SNUFF PACKING MACHINE OPERATOR Work Phone: [facility] 08-27-2021 Influenza, High-dose Seasonal, Quadrivalent, Preservative Free Marlene Kampfer SNUFF PACKING MACHINE OPERATOR Work Phone: [facility] 02-06-2021 COVID-19 Vaccine, vector-nr, rS-Ad26, PF, 0.5mL Hannah Lafountain [facility] 11-22-2020 influenza, injectabl e, quadrivalent, contains preservative Marlene Kampfer SNUFF PACKING MACHINE OPERATOR Work Phone: [facility] 09-26-2019 Influenza, High-dose Seasonal, Quadrivalent, Preservative Free Marlene Kampfer SNUFF PACKING MACHINE OPERATOR Work Phone: [facility] 09-06-2018 Influenza, High-dose Seasonal, Quadrivalent, Preservative Free Marlene Kampfer SNUFF PACKING MACHINE OPERATOR Work Phone: [facility] Work Phone: 09-21-2017 Influenza, High-dose Seasonal, Quadrivalent, Preservative Free Marlene Kampfer SNUFF PACKING MACHINE OPERATOR Work Phone: [facility] 09-15-2016 Influenza, High-dose Seasonal, Quadrivalent, Preservative Free Marlene Kampfer SNUFF PACKING MACHINE OPERATOR Work Phone: [facility] 05-01-2016 pneumococcal polysaccharide vaccine, 23 valent Marlene Kampfer SNUFF PACKING MACHINE OPERATOR Work Phone: [facility] 09-10-2015 pneumococcal conjuga te vaccine, 13 valent Marlene Moyer SNUFF PACKING MACHINE OPERATOR Work Phone: [facility] 11-30-2005 pneumococcal polysaccharide vaccine, 23 valent Marlene João SNUFF PACKING MACHINE OPERATOR Work Phone: [facility] Payers Date Payer Category Payer Medicare [id number] 1959 Unknown [id number] 1947 Unknown [id number] 2.16.84 [id number] 1947 Unknown [id number] 2.16.84 0.1.086198.3.579.2.593 1947 Unknown [id number] 2.16.84 0.1.161167.3.579.2.593 1947 Unknown [id number] 2.16.84 0.1.020102.3.579.2.593 1947 Unknown [id number] 2.16.84 0.1.635479.3.579.2.593 1947 Unknown [id number] 2.16.84 0.1.499233.3.579.2.593 1947 Unknown [id number] 2.16.84 0.1.331867.3.579.2.593 1947 Unknown [id number] 2.16.84 0.1.811789.3.579.2.593 1947 Unknown [id number] 2.16.84 0.1.619547.3.579.2.593 1947 Unknown [id number] 2.16.84 0.1.505492.3.579.2.593 1947 Unknown [id number] 2.16.84 0.1.444202.3.579.2.593 1947 Unknown [id number] 2.16.84 0.1.174387.3.579.2.593 1947 Unknown [id number] 2.16.84 0.1.436944.3.579.2.593 1947 Unknown [id number] 2.16.84 0.1.416344.3.579.2.593 1947 Unknown [id number] 2.16.84 0.1.980179.3.579.2.593 1947 Unknown [id number] 2.16.84 0.1.578828.3.579.2.593 1947 Unknown [id number] 2.16.84 0.1.292810.3.579.2.1259 1947 Unknown [id number] 2.16.84 0.1.704660.3.579.2.1259 Social History Date Type Detail Facility Start: 02-11-2018 End: 08-26-2023 Tobacco smoking status [facility] Never smoked tobacco [facility] Start: 02-11-2018 End: 08-26-2023 Tobacco use and exposure Smokeless tobacco non-user [facility] Start: 12-21-2023 End: 01-08-2024 Alcohol intake Ex-drinker (finding) [facility] Start: 12-10-2020 End: 08-26-2023 History of Social function [facility] Start: 12-10-2020 End: 08-26-2023 Tobacco use panel [facility] Start: 08-25-2023 Alcohol Comment caffeine: 1-2 cups per day [facility] Start: 1945 Sex Assigned [...] intake Current drinke r of alcohol (finding) [facility] Start: 11-03-2016 Alcohol Comment [facility] Goals Date Patient Goal Desired Activity [...] ultrasound Bilateral lower extremity ultrasound-guided injection sclerotherapy [facility] 02-25-2024 Miscellaneous Notes Associated Problem(s): Venous ulcer-leg syndrome, bilateral (CMS-HCC) Venous reflux ultrasound Bilateral lower extremity ultrasound-guided injection sclerotherapy documented in this encounter [facility] 02-25-2024 History of Present illness Narrative Images from the original note were not included. [facility] [address] [place] [phone] Subjective: Patient ID: Kj Mora is a [...] Patient Active Problem List Diagnosis Neuromuscular weakness ([facility]) Restrictive lung disease due to kyphoscoliosis Obesity hypoventilation syndrome ([facility]) Essential hypertension EMMA treated with BiPAP Chronic respiratory failure with hypoxia and hypercapnia ([facility]) Iron deficiency Venous stasis ulcer of left lower leg with edema of left lower leg ([facility]) Paraplegia ([facility]) Cellulitis of right lower extremity Venous ulcer-leg syndrome, bilateral ([facility]) Current Outpatient Medications: amLODIPine (NORVASC) 5 mg [...] Diagnosis Date Anemia Chronic hypercapnic respiratory failure ([facility]) COPD (chronic obstructive pulmonary disease) ([facility]) Depression Disease of lung HTN (hypertension) Obesity EMMA (obstructive sleep apnea) Paraplegia (CMS-HCC) Past Surgical History: Procedure Laterality Date COLOSTOMY [...] for this visit: Venous ulcer-leg syndrome, bilateral (CMS-HCC) Plan Plan: This is 78-year-old gentleman lower [...] JOBST Vascular Surgery documented in this encounter [facility] 02-04-2024 Miscellaneous Notes Received a new patient referral from patient wound care doctor. Called a left a voicemail for the patient to call back to schedule new patient appointment with Dr. Pimentel in [facility] documented in this encounter [facility] 02-04-2024 Telephone encounter Note Received a new patient referral from patient wound care doctor. Called a left a voicemail for the patient to call back to schedule new patient appointment with Dr. Pimentel in [facility] 01-21-2024 Miscellaneous Notes Received copy of denial letter from Radha headley into Friend Traveler. Emailed to Ines at [facility] to clarify as office visit was complete and pt is compliant- unsure if denial is due to elevated AHI? documented in this encounter [facility] 01-21-2024 Telephone encounter Note Received copy of denial letter from Shoshana- kayode into leasing property manager. Emailed to Ines at [facility] to clarify as office visit was complete and pt is compliant- unsure if denial is due to elevated AHI? [facility] 01-06-[facility]24 History of Present illness Narrative Kj Mora is a 78 y.o. male presents with chief complaint of Establish Care, Cellulitis, and Follow-up HPI: Patient is here to establish care and to follow-up on cellulitis. He went to wound care yesterday, they gave citalopram. He states he goes to [facility] to check legs pressure and vein [...] by wound center documented in this encounter [facility] 01-01-2024 Telephone encounter Note Ana from [facility] has concerns with pt stating that he seems more tired and his edema is more than normal. She would like to have labs ordered. Please call [phone] with orders. [facility] 01-01-2024 Miscellaneous Notes Ana from [facility] has concerns with pt stating that he seems more tired and his edema is more than normal. She would like to have labs ordered. Please call [phone] with orders. documented in this encounter [facility] 05-27-2022 Note PROCEDURE: XR FOOT R T [...] authenticated by: ELIEL WORTHINGTON Date: 2022-05-27 07:13 [facility] Evaluation note Diagnosis Cellulitis of right [...] (Z93.3) Colostomy status documented in this encounter [facility] HealthcareEvaluation note* Diagnosis EMMA (obstructive sleep apnea)- Primary Obstructive sleep apnea (adult) (pediatric) documented in this encounter [facility]* Diagnosis Venous ulcer-leg syndrome, bilateral (CMS-HCC)- Primary 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 complications documented in this [facility] [employer] SystemInstructionsNot on filedocumented in this encounter [facility] [employer] SystemInstructionsNot on filedocumented in this encounter [facility] [employer] [facility] Summary Purpose Family History No Family History Records FoundNo Family History Records Found Advance Directives Documents on File Type Date Recorded Patient Search Coordinator Expl anation Advance Directives and Living Will 09/15/2018 2001-05-13 Living Wi ll Advance Directives and Living Will 09/15/2018 2001-05-13 Health[facility] POA Latest Code Status on File Code Status Date Activated Date Inactivated Comments DNR Comfort Care Arrest (DNR-CCA) [place] 12/05/2020 7:21 P M 12/11/2020 6:03 PM Latest Code Status on File Code Status Date Activated Date Inactivated Comments DNR Comfort Care Arrest (DNR-CCA) [place] 12/05/2020 7:21 P M 12/11/2020 6:03 PM Reason for Referral Specialty Diagnoses / Procedures Referred By Contac t Referred To Contact Diagnoses Venous ulcer-leg syndrome, bilateral ([facility]) 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 complications Procedures Vas venous duplex insufficiency lwr bi Abraham Pimentel MD [address], [address] [address] Referral ID Status Reason Start Date Expiration Date V isits Requested Visits Authorized [id number] Pending Review 02/25/2024 02/24/2025 1 1 Additional Source Comments (unrecognized sect ion and content) No Status Records FoundNo Status Records Found INFORMATION SOURCE (unrecogn ized section and content) DATE CREATED AUTHOR 04/08/2023 [facility] DATE CREATED AUTHOR AUTHOR'S ORGANIZ ATION 02/24/2024 [facility] EPIC Care Teams (unrecognized sec tion and content) Skidder Lever Operator Relationship Specialty Start Date End Date Ines Cole MD [address] [place] [address] PCP - General Family Medicine 12/17/23 Marlene Moyer NP [address] [facility] [place] [address] Nurse Practitioner Family Medicine 12/17/23 Skidder Lever Operator Relationship Specialty Start Date End Date Ines Cole MD [address] [place] [address] PCP - General Family Medicine 12/17/23 Marlene Moyer NP [address] [facility] [place] [address] Nurse Practitioner Family Medicine 12/17/23 Skidder Lever Operator Relationship Specialty Start Date End Date Kerri Le DO [address] [place] [address] PCP - General Family Medicine 11/29/21 Skidder Lever Operator Relationship Specialty Start Date End Date Kerri Le DO [address] [facility] [place] [address] PCP - General Family Medicine 11/29/21 Skidder Lever Operator Relationship Specialty Start Date End Date Kerri Le DO [address] [place] [address] PCP - General Family Medicine 11/29/21 Reason [...] BE BASED ON THE PRIMARY CLINICAL RECORDS. [facility]. provides no warranty or guarantee of the accuracy or completeness of information in this document.
== END 2024-06-06 16:06 | disposition home or self-care (01) ==
LOC: WC 16:05
PROVIDERS: PCP Family Medicine; Visit Provider Physician Assistant
DX: I87.312 Chronic venous hypertension (idiopathic) with ulcer of left lower extremity (principal); L97.321 Non-pressure chronic ulcer of left ankle limited to breakdown of skin; L97.512 Non-pressure chronic ulcer of other part of right foot with fat layer exposed; L97.311 Non-pressure chronic ulcer of right ankle limited to breakdown of skin; L89.893 Pressure ulcer of other site, stage 3; L89.511 Pressure ulcer of right ankle, stage 1
CPT/HCPCS: 29580

== ENCOUNTER 2024-07-04 15:44 | Outpatient (OUT) | payer MEDICARE, SELFPAY | END 2024-07-04 15:45 | disposition home or self-care (01) | LOC: WC 15:44 | PROVIDERS: PCP Family Medicine; Visit Provider Physician Assistant | DX: I87.312 Chronic venous hypertension (idiopathic) with ulcer of left lower extremity (principal); L97.321 Non-pressure chronic ulcer of left ankle limited to breakdown of skin; L97.512 Non-pressure chronic ulcer of other part of right foot with fat layer exposed; L97.311 Non-pressure chronic ulcer of right ankle limited to breakdown of skin; L89.893 Pressure ulcer of other site, stage 3 | CPT/HCPCS: G0463 ==

== ENCOUNTER 2024-08-08 14:44 | Outpatient (OUT) | payer MEDICARE, SELFPAY | END 2024-08-08 14:45 | disposition home or self-care (01) | LOC: WC 14:44 | PROVIDERS: PCP Family Medicine; Visit Provider Physician Assistant | DX: I87.312 Chronic venous hypertension (idiopathic) with ulcer of left lower extremity (principal); L97.321 Non-pressure chronic ulcer of left ankle limited to breakdown of skin; L97.512 Non-pressure chronic ulcer of other part of right foot with fat layer exposed; L97.311 Non-pressure chronic ulcer of right ankle limited to breakdown of skin; L89.893 Pressure ulcer of other site, stage 3 | CPT/HCPCS: G0463 ==

== ENCOUNTER 2024-09-02 10:27 | Outpatient (OUT) | payer MEDICARE, SELFPAY ==
--- OUTSIDE RECORDS SUMMARY | 2024-09-02 10:42 | XMS_ITS | CCD ---
Author Organization [facility] Care Team Providers Care Technical Education Teacher Name Role Phone SILVANA WETZEL Admitting Unavailable [...] Primary Care Unavaila SILVANA Cobb Attending Unavailable HIGHLJESI, SILVANA Chowdhury Attending Unavailable [...] Unavailable REQUEST, NONE LISTED Primary Care Unavaila Ines Harrison MD Primary Care Provider Marlene Moyer NP Unavailable Kerri Le DO Primary Care Provider MARLENE MOYER Attending Unavailable MARLENE MOYER Attending Unavailable MARLENE MOYER Attending Unavailable Allergies Allergy Classification Reported Allergen(s) Allergy Type Date of Onset Reaction(s) Facility (2 sources) Adhesive agent Drug allergy (disorder) [facility] Repository (4 sources) Adhesive Tape-Silicones Propensity to adverse reactions to drug 8 [facility] Medications Current Medications Medication Drug Class(es) Dates Sig (Normalized) Sig (Original) amLODIPine 5 mg oral tablet (7 sources) Dihydropyridine Calcium Channel Sara Start: 01-19-2018 take 1 tablet by mouth in the morning amLODIPine (NORVASC) 5 mg tablet Take 1 tablet (5 mg total) by mouth in the morning. 0 01/19/2018 Active ascorbic acid 250 mg chewable tablet (8 sources) Vitamin C ascorbic acid (Vitamin C) 250 MG chewable tablet 1 (one) time each day at the same time. Active take 1 tablet by mouth in the mo rning ascorbic acid (VITAMIN C) 500 mg tablet Take 1 tablet (500 mg total) by mouth in the morning. 0 Active aspirin 81 mg delayed release oral tablet (4 sources) Platelet Aggregation Inhibitor, Nonsteroidal Anti-inflammatory Drug aspirin 81 MG EC tablet 1 (one) time each day at the same time. Active atorvastatin 20 mg oral tablet (4 sources) HMG-CoA Reductase Inhibitor take 1 tablet by mouth in the morning, then take 1 tablet by mouth at bedtime atorvastatin (LIPITOR) 20 mg tablet Take 1 tablet (20 mg total) by mouth in the morning and 1 tablet (20 mg total) before bedtime. 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) Take 1 tablet (40 mg) by mouth Daily 90 tablet 1 08/29/2024 Active Start: 08-21-2023 take 1 tablet by garcia th once daily citalopram (CeleXA) 40 MG tablet Indications: 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) TAKE ONE TABLET BY MOUTH DAILY 90 tablet 2 08/21/2023 Active collagenase 0.25 unt/mg topical ointment (3 sources) Collagen-specific Enzyme Start: 06-05-2022 Santyl 250 UNIT/GM ointment ferrous sulfate 325 mg oral tablet (8 sources) Start: 08-29-2024 take 1 tablet by mouth once daily ferrous sulfate (FeroSul) 325 (65 Fe) MG tablet Indications: 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 Take 1 tablet (325 mg) by mouth Daily 90 tablet 1 08/29/2024 Active Start: 08-31-2023 take 1 tablet by garcia th once daily ferrous sulfate (FeroSul) 325 (65 Fe) MG tablet Indications: 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 TAKE ONE TABLET BY MOUTH DAILY 90 tablet 3 08/31/2023 Active furosemide 20 mg oral tablet (8 sources) Loop Diuretic Start: 05-23-2024 take 2 tablets by mouth once daily furosemide (Lasix) 20 MG tablet Indications: Acute bilateral venous stasis dermatitis TAKE 2 TABLETS BY MOUTH DAILY 180 tablet 1 05/23/2024 Active Start: 08-21-2023 take 2 tablets by mo [facility] once daily furosemide (Lasix) 20 MG tablet Indications: Acute bilateral venous stasis dermatitis TAKE TWO TABLETS BY MOUTH DAILY 180 tablet 2 08/21/2023 Active take 1 tablet by garcia th twice daily furosemide (LASIX) 20 mg tablet Take 1 tablet (20 mg total) by mouth 2 (two) times a day. 0 Active ibuprofen 200 mg oral tablet (4 sources) Nonsteroidal Anti-inflammatory Drug take 1 tablet by mouth once daily at mealtime as needed ibuprofen 200 MG tablet 1 tablet with food or milk as needed Orally pt taking daily Active lysine 1000 mg oral tablet (3 sources) L-lysine 1000 MG tablet Take by mouth Active Multiple Vitamin (MULTIVITAMIN ADULT PO) (4 sources) Multiple Vitamin (MULTIVITAMIN ADULT PO) 1 (one) time each day at the same time. Active Multiple Vitamin (MULTIVITAMIN ADULT PO) 1 (one) time each day at the same time. 0 Active omeprazole 40 mg delayed release oral capsule (4 sources) Proton Pump Inhibitor Start: 05-23-2024 omeprazole (PriLOSEC ) [address] capsule Indications: Gastroesophageal reflux disease, unspecified whether esophagitis present TAKE 1 CAPSULE BY MOUTH DAILY 30 MINUTES BEFORE MORNING MEAL 90 capsule 1 05/23/2024 Active Start: 08-21-2023 omeprazole (Pr iLOSEC) [address] capsule Indications: Gastroesophageal reflux disease, unspecified whether esophagitis present TAKE ONE CAPSULE BY MOUTH DAILY 30 MINUTES BEFORE MORNING MEAL 90 capsule 2 08/21/2023 Active Oxygen (4 sources) oxygen Inhale 3- 4 L/min as needed. 0 Active potassium chloride 10 meq extended release oral tablet (9 sources) Start: 08-30-2024 take 1 tablet by mouth at mealtime potassium chloride CR (Klor-Con) 10 MEQ ER tablet Indications: Hypokalemia Take 1 tablet (10 mEq) by mouth in the evening with food 90 tablet 08/30/2024 Active Start: 08-29-2024 End: 08-30-2024 take 1 tablet by mouth once daily at mealtime potassium chloride CR (K-Tab) 20 MEQ ER tablet Indications: Hypokalemia Take 1 tablet (20 mEq) by mouth Daily with food 90 tablet 1 08/29/2024 08/30/2024 Discontinued (Reorder) Start: 08-31-2023 take 1 tablet by garcia once daily at mealtime potassium chloride CR (K-Tab) 20 MEQ ER tablet Indications: Hypokalemia TAKE ONE TABLET BY MOUTH DAILY WITH FOOD 90 tablet 3 08/31/2023 Active take 1 dose by mouth in the morning potassium chloride (KLOR-CON) 20 mEq packet Take 1 packet (20 mEq total) by mouth in the morning. 0 Active rosuvastatin calcium 10 mg oral tablet (4 sources) HMG-CoA Reductase Inhibitor Start: 03-03-2023 rosuvastatin (Crestor) 10 MG tablet 1 (one) time each day at the same time. 03/03/2023 Active zinc gluconate 50 mg oral tablet (4 sources) zinc gluconate 5 0 MG tablet 1 (one) time each day at the same time. Active zinc sulfate 220 mg oral capsule [...] foot with fat layer exposed] Onset: 05-05-2022 Resolved: 02-24-2024 Chronic Coronary atherosclerosis and other heart disease (4 sources) Coronary arteriosclerosis; Translations: [Atherosclerotic heart disease of [place] coronary artery without angina pectoris] Onset: 06-08-2023 06-08-2023 Chronic Disorders of lipid metabolism (5 sources) Mixed hyperlipidemia; Translations: [Mixed hyperlipidemia] Onset: 01-23-2023 06-08-2023 Chronic Esophageal disorders (4 sources) Gastroesophageal reflux disease; Translations: [Gastro-esophageal reflux disease without esophagitis] Onset: 06-08-2023 06-08-2023 Chronic Essential hypertension (11 sources) Essential (primary) hypertension; Translations: [Essential hypertension] Onset: 02-11-2018 08-26-2023 Chronic Fluid and electrolyte disorders (1 source) Hypokalemia; Translations: [Hypokalemia] 08-30-2024 Episodic Malaise and fatigue (2 sources) Fatigue; Translations: [Other fatigue] 01-06-2024 Episodic Mood disorders (8 sources) Recurrent major depressive episodes, mild ; Translations: [Major depressive disorder, recurrent, mild] Onset: 06-08-2023 Resolved: 02-24-2024 06-08-2023 Chronic Other acquired deformities (4 sources) Acquired scoliosis; Translations: [Other secondary scoliosis, thoracolumbar region] Onset: 06-08-2023 06-08-2023 Chronic Other diseases of bladder and urethra (4 sources) Neurogenic bladder; Translations: [Neuromuscular dysfunction of bladder, unspecified] Onset: 06-08-2023 06-08-2023 Chronic Other diseases of veins and lymphatics (1 source) Chronic venous hypertension (idiopathic) with ulcer of left lower extremity; Translations: [CHRON VENOUS HTN W/ULCER LT LW EXT] Onset: 03-25-2023 Chronic Other diseases of veins and lymphatics (4 sources) Venous ulcer of lower extremity due [...] Episodic Other nutritional; endocrine; and metabolic disorders (4 sources) Obese class I; Translations: [Obesity, unspecified] Onset: 06-08-2023 06-08-2023 Chronic Other nutritional; endocrine; and metabolic disorders (8 sources) Alveolar hypoventilation; Translations: [Morbid (severe) obesity with alveolar hypoventilation] Onset: 02-11-2018 08-26-2023 Chronic Paralysis (17 sources) Paraplegia, incomplete; 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] Onset: 11-09-2019 06-08-2023 Chronic Peripheral and visceral atherosclerosis (1 source) Peripheral vascular disease, unspecified; Translations: [PERIPHERAL VASCULAR DISEASE UNS] Onset: 01-04-2023 Chronic Residual codes; unclassified (1 source) Dependence on wheelchair; Translations: [DEPENDENCE ON WHEELCHAIR] Onset: 01-23-2023 Chronic Residual codes; unclassified (4 sources) Dependence on wheelchair; Translations: [Dependence on wheelchair] Onset: 06-08-2023 06-08-2023 Chronic Residual codes; unclassified (11 sources) Obstructive sleep apnea syndrome; Translations: [Obstructive sleep apnea (adult) (pediatric)] Onset: 02-11-2018 06-08-2023 Chronic Residual codes; unclassified (5 sources) Localized edema; Translations: [LOCALIZED EDEMA] Onset: 01-23-2023 Episodic Respiratory failure; insufficiency; arrest (adult) (15 sources) Dependence on supplemental oxygen; Translations: [Chronic hypoxemic respiratory failure] Onset: 09-22-2018 06-08-2023 Chronic Past or Other Problems Problem Classification Problem Date Documented Da te Episodic/Chronic Deficiency and other anemia (4 sources) Pancytopenia; Translations: [Other pancytopenia] Onset: 06-08-2023 Resolved: 02-24-2024 06-08-2023 Chronic Deficiency and other anemia (6 sources) 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; Translations: [Other iron deficiency anemias] Onset: 06-08-2023 Resolved: 02-24-2024 06-08-2023 Episodic Mood disorders (5 sources) Mood disorders Onset: 12-05-2020 Resolved: 02-23-2024 12-05-2020 Nutritional deficiencies (8 sources) Iron deficiency; Translations: [Iron deficiency] Onset: 09-14-2014 08-26-2023 Episodic Open wounds of extremities (4 sources) Amputated toe of right foot; Translations: [Complete traumatic amputation of one right lesser toe, initial encounter] Onset: 06-08-2023 Resolved: 02-24-2024 06-08-2023 Chronic Other bone disease and musculoskeletal deformities (4 sources) Osteopenia; Translations: [Other specified disorders of [...] Episodic Other diseases of veins and lymphatics (4 sources) Peripheral venous insufficiency; Translations: [Venous insufficiency (chronic) (peripheral)] Onset: 06-08-2023 06-08-2023 Episodic Other diseases of veins and lymphatics (1 source) Disorder of vein of lower extremity; Translations: [Venous insufficiency (chronic) (peripheral)] Onset: 06-08-2023 Resolved: 02-24-2024 02-24-2024 Episodic Other lower respiratory disease (4 sources) Chronic respiratory insufficiency; Translations: [Other abnormalities of breathing] Onset: 06-08-2023 Resolved: 02-24-2024 06-08-2023 Episodic Other lower respiratory disease (4 sources) Restrictive lung disease; Translations: [Other disorders of lung] Onset: 06-08-2023 06-08-2023 Episodic Other lower respiratory disease (4 sources) Restrictive lung disease due to kyphoscoliosis; Translations: [Other disorders of lung] Onset: 02-11-2018 02-11-2018 Episodic Other nervous system disorders (4 sources) Impaired cognition; Translations: [Other symptoms and signs involving cognitive functions and awareness] Onset: 06-08-2023 06-08-2023 Episodic Other nervous system disorders (10 sources) Myoneural disorder; Translations: [Myoneural disorder, unspecified] Onset: 02-11-2018 08-26-2023 Episodic Other skin disorders (1 source) Personal history of diseases of the skin and subcutaneous tissue; Translations: [PERS HX DZ SKIN AND SUBCUTANEOUS TISSUE] Onset: 11-06-2022 Episodic Residual codes; unclassified (4 sources) 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; Translations: [Dependence on other enabling machines and devices] Onset: 06-08-2023 Resolved: 02-24-2024 06-08-2023 Chronic Residual codes; unclassified (3 sources) Edema; Translations: [Edema, unspecified] Onset: 08-26-2023 08-26-2023 Episodic Skin and subcutaneous tissue infections (10 sources) Cellulitis of right lower limb; Translations: [Cellulitis of right lower limb] Onset: 12-05-2020 08-26-2023 Episodic Varicose veins of lower extremity (11 sources) Venous stasis ulcer with edema of left lower leg; Translations: [Varicose veins of left lower extremity with ulcer of unspecified site] Onset: 10-06-2018 08-26-2023 Episodic Results Test Name Value Interpretation Reference Range Facil ity 25-hydroxyvitamin D3 [Mass/V ol]on 01-07-2024 [facility] Organization Information Site ID: QPT Name: [facility] Address: [address] [place] [address], [address] [place] [address] Director: Maninder Alves MD [facility] CBC W Auto Differential pane l (Bld)on 01-07-2024 Basophils (Bld) [#/Vol] 32 10*3/uL [facility] Basophils/100 WBC (Bld) 0.8 % [facility] Eosinophils (Bld) [#/Vol] 160 10*3/uL [facility] Eosinophils/100 WBC (Bld) 4.0 % [facility] Erythrocyte distribution width (RBC) [Ratio] 12.6 % 11.0 - 15.0 % [facility] Hematocrit (Bld) [Volume fraction] 37.7 % Low 38.5 - 50.0 % [facility] Hemoglobin (Bld) [Mass/Vol] 12.0 g/dL Low 13.2 - 17.1 g/dL [facility] Lymphocytes (Bld) [#/Vol] 664 10*3/uL Low [facility] Lymphocytes/100 WBC (Bld) 16.6 % [facility] MCH (RBC) [Entitic mass] 29.8 pg 27.0 - 33.0 pg [facility] MCHC (RBC) [Mass/Vol] 31.8 g/dL Low 32.0 - 36.0 g/dL [facility] MCV (RBC) [Entitic vol] 93.5 fL 80.0 - 100.0 fL [facility] Monocytes (Bld) [#/Vol] 452 10*3/uL [facility] Monocytes/100 WBC (Bld) 11.3 % [facility] Neutrophils (Bld) [#/Vol] 2692 10*3/uL [facility] Neutrophils/100 WBC (Bld) 67.3 % [facility] Platelet mean volume (Bld) [Entitic vol] 9.9 fL 7.5 - 12.5 fL [facility] are Platelets (Bld) [#/Vol] 179 10*3/uL [facility] RBC (Bld) [#/Vol] 4.03 10*6/uL Low [facility] WBC (Bld) [#/Vol] 4.0 10*3/uL [facility] - Chemistry and C hemistry - challengeon 01-07-2024 Albumin [Mass/Vol] 3.9 g/dL 3.6 - 5.1 g/dL [facility] Albumin/Globulin [Mass ratio] 1.1 {ratio} [facility] ALP [Catalytic activity/Vol] 76 U/L 35 - 144 U/L [facility] ALT [Catalytic activity/Vol] 14 U/L 9 - 46 U/L [facility] AST [Catalytic activity/Vol] 18 U/L 10 - 35 U/L [facility] Bilirubin [Mass/Vol] 0.4 mg/dL 0.2 - 1.2 mg/dL [facility] Calcium [Mass/Vol] 9.0 mg/dL 8.6 - 10. 3 mg/dL [facility] Chloride [Moles/Vol] 103 mmol/L 98 - 110 mmol/L [facility] CO2 [Moles/Vol] 29 mmol/L 20 - 32 mmol/L [facility] Creatinine [Mass/Vol] 0.61 mg/dL Low 0.70 - 1.28 mg/dL [facility] GFR/1.73 sq M.predicted among non-blacks MDRD (S/P/Bld) [Vol rate/Area] 100 mL/min/{1.73_m2} > OR = 60 mL/min/1.73m2 [facility] Globulin (S) [Mass/Vol] 3.4 g/dL [facility] Glucose [Mass/Vol] 90 mg/dL 65 - 99 mg/dL [facility] Comment on above: Fasting reference interval Potassium [Moles/Vol] 4.1 mmol/L 3.5 - 5.3 mmol/L [facility] Protein [Mass/Vol] 7.3 g/dL 6.1 - 8.1 g/dL NO [facility] Sodium [Moles/Vol] 143 mmol/L 135 - 146 mmol/L [facility] TSH Qn 1.54 m[IU]/L [facility] U[facility] nitrogen [Mass/Vol] 16 mg/dL 7 - 25 mg/dL [facility] Urea nitrogen/Creatinine [Mass ratio] 26 mg/mg High [facility] 25-hydroxyvitamin D3 [Mass/Vol] 36 ng/mL 30 - 100 ng/mL [facility] Comment on above: Vitamin D Status 25- [place] Vitamin D: Deficiency: <20 ng/mL Insufficiency: 20 - 29 ng/mL Optimal: > or = 30 ng/mL For 25-OH Vitamin D testing on patients on D2-supplementation and patients for whom quantitation of D2 and D3 fractions is required, the QuestAssureD(TM) 25-OH VIT D, (D2,D3), LC/MS/MS is recommended: order code 02264 (patients >2yrs). See Note 1 Note 1 For additional information, please refer to [email or web address]/TKK747 (This link is being provided for informational/ educational purposes only.) No Panel Informationon 01-07 Interpretation and review of laboratory results Abnormal [facility] Performing Organization Information Site ID: QPT Name: [facility] Address: [address] [place] [address], [address] [place] [id number] Director: Maninder Alves MD [facility] Vital Signs Date Time Vital Sign Value Performing Clinician Kwan sutton 01-06-2024 13:04-0500 Body height 182.9 cm Marlene Moyer CLERICAL OFFICE Work Phone: [facility] 01-06-2024 13:04-0500 Diastolic blood pressure 80 mm[Hg] Marlene Moyer CLERICAL OFFICE Work Phone: [facility] 01-06-2024 13:04-0500 Heart rate 71 /min Marlene Moyer CLERICAL OFFICE Work Phone: [facility] 01-06-2024 13:04-0500 SaO2% (BldA) [Mass fraction] 93 % Marlene Moyer CLERICAL OFFICE Work Phone: [facility] 01-06-2024 13:04-0500 Systolic blood pressure 118 mm[Hg] Marlene Moyer CLERICAL OFFICE Work Phone: [facility] Encounters Encounter Date Encounter Type Care Provider Facility Start: 08-30-2024 End: 08-30-2024 Orders Only Marlene Moyer CLERICAL OFFICE Work Phone: [facility] Comment on above: Hypokalemia Start: 08-29-2024 End: 08-29-2024 ambulatory MARLENE MOYER Not Available Start: 02-25-2024 End: 02-25-2024 Office outpatient new [...] [facility] Start: 01-06-2024 End: 01-06-2024 Office outpatient visit 25 minutes Marlene Moyer CLERICAL OFFICE Work Phone: [facility] Comment on above: Cellulitis of [...] equina syndrome (G83.4); 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) Start: 01-06-2024 End: 01-06-2024 ambulatory MARLENE MOYER Not Available Start: 01-01-2024 Telephone encounter Marlene pierre CLERICAL OFFICE Work Phone: [facility] Start: 04-07-2023 End: 04-08-2023 ambulatory [facility] Facility:[facility]1 Start: 03-16-2023 End: 03-17-2023 ambulatory [facility] Facility:[facility] Start: 02-13-2023 End: 02-14-2023 ambulatory [facility] Facility:[facility] Start: 01-12-2023 End: 01-13-2023 ambulatory SILVANA WETZEL Facility:[facility]1 Start: 01-01-2023 End: 01-02-2023 ambulatory [facility] [...] with white cell differential, automated Marlene Moyer CLERICAL OFFICE Work Phone: Start: 01-06-2024 End: 01-06-2024 Comprehensive metabolic panel Marlene Moyer CLERICAL OFFICE Work Phone: Start: 01-06-2024 TSH W/REFLEX TO FT4 Praneeth Moyer CLERICAL OFFICE Work Phone: Start: 06-08-2023 H/O: colostomy Colostomy status Cassandra Moyer CLERICAL OFFICE Work Phone: H/O: colostomy 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) Marlene Moyer CLERICAL OFFICE Work Phone: Plan of Treatment Date Care Activity Detail Author Start: 02-21-2025 End: 02-21-2025 Patient encounter procedure 02/21/2025 1:00 PM EDT Office Visit [facility] [address] [place] [address] Marlene Moyer NP [address] [place] [address] [facility] Start: 10-15-2024 Tobacco Screening Tobacco Screening [facility] Start: 08-30-2024 End: 08-30-2025 Basic metabolic 1998 panel - Serum or Plasma Basic metabolic panel Lab Routine Hypokalemia Expected: 08/30/2024 (Approximate), Expires: 08/30/2025 [facility] Work Phone: Comment on above: Expected: 08/30/2024 (Approximate), Expires: 08/30/2025 Start: 03-01-2024 End: 08-27-2025 US.doppler Lower extremity vein - bilateral Vas venous duplex insufficiency lwr bi Vascular Ultrasound Routine Venous ulcer-leg syndrome, bilateral (CMS-HCC) 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 complications Expected: 03/01/2024 (Approximate), Expires: 08/27/2025 [facility] Work Phone: Comment on above: Expected: 03/01/2024 (Approximate), Expires: 08/27/2025 Start: 02-26-2024 Medicare Annual Wellness (AWV) Medicare Annual Wellness (AWV) [facility] Start: 02-25-2024 End: 02-25-2024 Patient encounter procedure 02/25/2024 1:30 PM EDT Office Visit [facility] [address] [place] [address] Abraham Pimentel MD [address], [address] [address] [facility] Start: 02-23-2024 End: 02-23-2024 Patient encounter procedure 02/23/2024 1:00 PM EDT Office Visit [facility] [address] [facility] [facility] [place] [address] Marlene Moyer, ANTHONY [address] [place] [address] [facility] Start: 02-11-2024 End: 02-11-2024 Patient encounter procedure 02/11/2024 2:50 PM EDT Office Visit [facility] [place] [address] Abraham Pimentel MD [address], [address] [address] [facility] Start: 07-31-2023 COVID-19 Vaccine ( season) COVID-19 Vaccine ( season) [facility] Start: 07-17-2023 Adult BMI Screening Adult BMI Screen ing [facility] Start: 2012 Fall Risk Screening Fall Risk Screen ing [facility] Start: 1966 DTaP,Tdap and Td Vaccines (1 - Tdap) DTaP,Tdap and Td Vaccines (1 - Tdap) [facility] Start: 1959 Depression Screening Depression Scre ening [facility] Start: 1947 Medicare Annual Wellness Visit Medicare Annual Wellness Visit [facility] Immunizations Immunization Date Immunization Notes Care Provider Fa cili 08-29-2024 influenza, high dose seasonal, preservative-free Marlene Moyer CLERICAL OFFICE Work Phone: [facility] 08-29-2024 SARS-COV-2 (COVID-19 ) vaccine, mRNA, spike protein, LNP, PF, jak-sucrose, 30 mcg/0.3 mL Marlene Moyer CLERICAL OFFICE Work Phone: [facility] 08-28-2023 zoster vaccine recombinant Marlene Moyer CLERICAL OFFICE Work Phone: [facility] 08-26-2023 Influenza, High-dose Seasonal, Quadrivalent, Preservative Free Marlene Kampfer CLERICAL OFFICE Work Phone: [facility] 08-27-2022 Influenza, High-dose Seasonal, Quadrivalent, Preservative Free Marlene Kampfer CLERICAL OFFICE Work Phone: [facility] 08-27-2021 Influenza, High-dose Seasonal, Quadrivalent, Preservative Free Marlene Kampfer CLERICAL OFFICE Work Phone: [facility] 02-06-2021 COVID-19 Vaccine, vector-nr, [id number], PF, 0.5mL [facility] 11-22-2020 influenza, injectabl e, quadrivalent, contains preservative Marlene Kampfer CLERICAL OFFICE Work Phone: [facility] 09-26-2019 Influenza, High-dose Seasonal, Quadrivalent, Preservative Free Marlene Kampfer CLERICAL OFFICE Work Phone: [facility] 09-06-2018 Influenza, High-dose Seasonal, Quadrivalent, Preservative Free Marlene Kampfer CLERICAL OFFICE Work Phone: [facility] Work Phone: 09-21-2017 Influenza, High-dose Seasonal, Quadrivalent, Preservative Free Marlene Kampfer CLERICAL OFFICE Work Phone: [facility] 09-15-2016 Influenza, High-dose Seasonal, Quadrivalent, Preservative Free Marlene Kampfer CLERICAL OFFICE Work Phone: [facility] 05-01-2016 pneumococcal polysaccharide vaccine, 23 valent Marlene Kampfer CLERICAL OFFICE Work Phone: [facility] 09-10-2015 pneumococcal conjuga te vaccine, 13 valent Marlene Kampfer CLERICAL OFFICE Work Phone: [facility] 11-30-2005 pneumococcal polysaccharide vaccine, 23 valent Marlene Kampfer CLERICAL OFFICE Work Phone: [facility] Payers Date Payer Category Payer Medicare [id number] 1959 Unknown [id number] 1945 Unknown [id number] 2.16.84 0.1.678234.3.579.2.593 1945 Unknown [id number] 2.16.84 0.1.949849.3.579.2.593 1947 Unknown [id number] 2.16.84 0.1.905733.3.579.2.593 1947 Unknown [id number] 2.16.84 0.1.092036.3.579.2.593 1947 Unknown [id number] 2.16.84 0.1.643160.3.579.2.593 1947 Unknown [id number] 2.16.84 0.1.126295.3.579.2.593 1947 Unknown [id number] 2.16.84 0.1.002268.3.579.2.593 1947 Unknown [id number] 2.16.84 0.1.716472.3.579.2.593 1947 Unknown [id number] 2.16.84 0.1.492743.3.579.2.593 1947 Unknown [id number] 2.16.84 0.1.059545.3.579.2.593 1947 Unknown [id number] 2.16.84 0.1.206189.3.579.2.593 1947 Unknown [id number] 2.16.84 0.1.268915.3.579.2.593 1947 Unknown [id number] 2.16.84 0.1.096325.3.579.2.593 1947 Unknown [id number] 2.16.84 0.1.961516.3.579.2.593 1947 Unknown [id number] 2.16.84 0.1.615502.3.579.2.593 1947 Unknown [id number] 2.16.84 0.1.943784.3.579.2.593 1947 Unknown [id number] 2.16.84 0.1.715382.3.579.2.1259 1947 Unknown [id number] 2.16.84 0.1.386639.3.579.2.1259 1947 Unknown [id number] 2.16.84 0.1.628163.3.579.2.1259 Social History Date Type Detail Facility Start: 02-11-2018 End: 08-26-2023 Tobacco smoking status NHIS Never smoked tobacco [facility] Start: 02-11-2018 End: 08-26-2023 Tobacco use and exposure Smokeless tobacco non-user [facility] Start: 12-21-2023 End: 08-29-2024 Alcohol intake Ex-drinker (finding) [facility] Start: 08-26-2023 End: 01-01-2024 History of Social function [facility] Start: 08-26-2023 End: 01-01-2024 Tobacco use panel [facility] Start: 08-25-2023 Alcohol Comment caffeine: 1-2 cups per day [facility] Start: 1945 Sex Assigned At [...] get more. DK or Refused [facility] Start: 10-15-2023 Alcohol intake Current drinke r of alcohol (finding) [facility] Start: 11-03-[address] [facility] Goals Date Patient Goal Desired Activity [...] ultrasound Bilateral lower extremity ultrasound-guided injection sclerotherapy [facility] 02-25-2024 Miscellaneous Notes Associated Problem(s): Venous ulcer-leg syndrome, bilateral (CMS-HCC) Venous reflux ultrasound Bilateral lower extremity ultrasound-guided injection sclerotherapy documented in this encounter [facility] 02-25-2024 History of Present illness Narrative Images from the original note were not included. [facility] [address] [place] [id number] Subjective: Patient ID: Kj Mora is a [...] Patient Active Problem List Diagnosis Neuromuscular weakness (CMS-HCC) Restrictive lung disease due to kyphoscoliosis Obesity hypoventilation syndrome (CMS-HCC) Essential hypertension EMMA treated with BiPAP Chronic respiratory failure with hypoxia and hypercapnia (CMS-HCC) Iron deficiency Venous stasis ulcer of left lower leg with edema of left lower leg (CMS-HCC) Paraplegia ([facility]) Cellulitis of right lower extremity Venous ulcer-leg syndrome, bilateral ([facility]) Current Outpatient Medications: amLODIPine (NORVASC) 5 [...] Diagnosis Date Anemia Chronic hypercapnic respiratory failure ([facility]) COPD (chronic obstructive pulmonary disease) ([facility]) Depression Disease of lung HTN (hypertension) Obesity EMMA (obstructive sleep apnea) Paraplegia ([facility]) Past Surgical History: Procedure Laterality Date COLOSTOMY [...] for this visit: Venous ulcer-leg syndrome, bilateral ([facility]) Plan Plan: This is 78-year-old gentleman [...] JOBST Vascular Surgery documented in this encounter [facility] 02-04-2024 Miscellaneous Notes Received a new patient referral from patient wound care doctor. Called a left a voicemail for the patient to call back to schedule new patient appointment with Dr. Pimentel in [facility] documented in this encounter [facility] 02-04-2024 Telephone encounter Note Received a new patient referral from patient wound care doctor. Called a left a voicemail for the patient to call back to schedule new patient appointment with Dr. Pimentel in [facility] 01-21-2024 Miscellaneous Notes Received copy of denial letter from [employer]. Emailed to Ines smith [facility] [place] to clarify as office visit was complete and pt is compliant- unsure if denial is due to elevated AHI? documented in this encounter [facility] 01-21-2024 Telephone encounter Note Received copy of denial letter from [employer]. Emailed to Ines smith [facility] [place] to clarify as office visit was complete and pt is compliant- unsure if denial is due to elevated AHI? [facility] 01-06-2024 History of Present illness Narrative Kj Mora is a 78 y.o. male presents with chief complaint of Establish Care, Cellulitis, and Follow-up HPI: Patient is here to establish care and to follow-up on cellulitis. He went to wound care yesterday, they gave citalopram. He states he goes to [facility] to check legs pressure and vein [...] by wound center documented in this encounter [facility] 01-01-2024 Telephone encounter Note Ana from [facility] has concerns with pt stating that he seems more tired and his edema is more than normal. She would like to have labs ordered. Please call [phone] with orders. [facility] 01-01-2024 Miscellaneous Notes Ana from [facility] has concerns with pt stating that he seems more tired and his edema is more than normal. She would like to have labs ordered. Please call [phone] with orders. documented in this encounter [facility] 05-27-2022 Note PROCEDURE: XR FOOT R T [...] by: ELIEL WORTHINGTON Date: 2022-05-27 07:[address] [facility] Evaluation note Diagnosis Cellulitis of right [...] (Z93.3) Colostomy status documented in this encounter [facility] note* Diagnosis EMMA (obstructive sleep apnea)- Primary Obstructive sleep apnea (adult) (pediatric) [facility] Venous ulcer-leg syndrome, bilateral (CMS-HCC)- Primary 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 complications [facility] Diagnosis Hypokalemia Hypopotassemia documented in this encounter [facility] HealthcareInstructionsNot on filedocumented in this encounterPro[facility] SystemInstructionsNot on filedocumented in this [facility]Pro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 Advance Directives and Living Will 09/15/2018 2001-05-13 Living Wi ll Advance Directives and Living Will 09/15/2018 2001-05-13 Healthcar e POA Latest Code Status on File Code Status Date Activated Date Inactivated Comments DNR Comfort Care Arrest (DNR-CCA) [place] 12/05/2020 7:21 P M 12/11/2020 6:03 PM Latest Code Status on File Code Status Date Activated Date Inactivated Comments DNR Comfort Care Arrest (DNR-CCA) [place] 12/05/2020 7:21 P M 12/11/2020 6:03 PM Reason for Referral Specialty Diagnoses / Procedures Referred By Contac t Referred To Contact Diagnoses Venous ulcer-leg syndrome, bilateral (CMS-HCC) 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 complications Procedures Vas venous duplex insufficiency lwr Abraham Trujillo MD [address], [place] [id number] Referral ID Status Reason Start Date Expiration Date V isits Requested Visits Authorized [id number] Pending Review 02/25/2024 02/24/2025 1 1 Additional Source Comments (unrecognized sect ion and content) No Status Records FoundNo Status Records Found INFORMATION SOURCE (unrecogn ized section and content) DATE CREATED AUTHOR 04/08/2023 [facility] DATE CREATED AUTHOR AUTHOR'S ORGANIZ ATION 08/30/2024 [facility] Care Teams (unrecognized sec tion and content) Technical Education Teacher Relationship Specialty Start Date End Date Ines Cole MD [address] [place] [address] PCP - General Family Medicine 12/17/23 Marlene Moyer NP [address] [place] [place], [place] [id number] Nurse Practitioner Family Medicine 12/17/23 Technical Education Teacher Relationship Specialty Start Date End Date Ines Cole MD [address] [place], [place] [id number] PCP - General Family Medicine 12/17/23 Marlene Moyer NP [address] [place] [address] Nurse Practitioner Family Medicine 12/17/23 Technical Education Teacher Relationship Specialty Start Date End Date MimiKerri TaDO [address] [place] [address] PCP - General Family Medicine 11/29/21 Technical Education Teacher Relationship Specialty Start Date End Date Kerri Le DO [address] [place] [address] PCP - General Family Medicine 11/29/21 Technical Education Teacher Relationship Specialty Start Date End Date Kerri Le DO [address] [place] [address] PCP - General Family Medicine 11/29/21 Technical Education Teacher Relationship Specialty Start Date End Date Ines Cole MD [address] [place] [address] PCP - General Family Medicine 12/17/23 Marlene Moyer NP [address] [place] [address] Nurse Practitioner Family Medicine 12/17/23 Reason for [...] BE BASED ON THE PRIMARY CLINICAL RECORDS. [facility] [employer] [facility]. provides no warranty or guarantee of the accuracy or completeness of information in this document.
== END 2024-09-02 10:28 | disposition home or self-care (01) ==
LOC: WC 10:27
PROVIDERS: PCP Family Medicine; Visit Provider Podiatrist Foot & Ankle Surgery
DX: L97.321 Non-pressure chronic ulcer of left ankle limited to breakdown of skin (principal); L97.512 Non-pressure chronic ulcer of other part of right foot with fat layer exposed; L97.311 Non-pressure chronic ulcer of right ankle limited to breakdown of skin; L89.893 Pressure ulcer of other site, stage 3; I87.312 Chronic venous hypertension (idiopathic) with ulcer of left lower extremity; L97.912 Non-pressure chronic ulcer of unspecified part of right lower leg with fat layer exposed
CPT/HCPCS: G0463

== ENCOUNTER 2024-10-05 13:59 | Outpatient (OUT) | payer MEDICARE, SELFPAY | END 2024-10-05 14:00 | disposition home or self-care (01) | LOC: WC 13:59 | PROVIDERS: PCP Family Medicine; Visit Provider Physician Assistant | DX: L97.311 Non-pressure chronic ulcer of right ankle limited to breakdown of skin (principal); I87.312 Chronic venous hypertension (idiopathic) with ulcer of left lower extremity; L97.321 Non-pressure chronic ulcer of left ankle limited to breakdown of skin; L97.512 Non-pressure chronic ulcer of other part of right foot with fat layer exposed; L89.893 Pressure ulcer of other site, stage 3; L97.912 Non-pressure chronic ulcer of unspecified part of right lower leg with fat layer exposed; L89.512 Pressure ulcer of right ankle, stage 2; L89.622 Pressure ulcer of left heel, stage 2 | CPT/HCPCS: 29580 ==

== ENCOUNTER 2024-10-19 13:42 | Outpatient (OUT) | payer MEDICARE, SELFPAY | END 2024-10-19 13:43 | disposition home or self-care (01) | LOC: WC 13:42 | PROVIDERS: PCP Family Medicine; Visit Provider Physician Assistant | DX: I87.312 Chronic venous hypertension (idiopathic) with ulcer of left lower extremity (principal); L97.321 Non-pressure chronic ulcer of left ankle limited to breakdown of skin; L97.512 Non-pressure chronic ulcer of other part of right foot with fat layer exposed; L97.311 Non-pressure chronic ulcer of right ankle limited to breakdown of skin; L89.893 Pressure ulcer of other site, stage 3; L89.622 Pressure ulcer of left heel, stage 2 | CPT/HCPCS: 29580 ==

== ENCOUNTER 2024-11-16 11:37 | Outpatient (OUT) | payer MEDICARE, SELFPAY ==
--- OUTSIDE RECORDS SUMMARY | 2024-11-16 11:58 | XMS_ITS | CCD ---
Author Organization [facility] Care Team Providers Care Community Health Agent Name Role Phone SILVANA WETZEL Admitting Unavailable [...] sources) Adhesive agent Drug allergy (disorder) [facility] Repository (5 sources) Adhesive Tape-Silicones Propensity to adverse reactions to drug 8 [facility] Medications Current Medications Medication Drug Class(es) Dates Sig (Normalized) Sig (Original) amLODIPine 5 mg oral tablet (8 sources) Dihydropyridine Calcium Channel Sara Start: 01-19-2018 take 1 tablet by mouth in the morning amLODIPine (NORVASC) 5 mg tablet Take 1 tablet (5 mg total) by mouth in the morning. 01/19/2018 Active ascorbic acid 500 mg oral tablet (9 sources) Vitamin C take 1 tablet by mouth in the morning ascorbic acid (VITAMIN C) 500 mg tablet Take 1 tablet (500 mg total) by mouth in the morning. Active ascorbic acid (V itamin C) 250 MG chewable tablet 1 (one) time each day at the same time. Active aspirin 81 mg chewable tablet (5 sources) Platelet Aggregation Inhibitor, Nonsteroidal Anti-inflammatory Drug aspirin 81 mg chewab le tablet Chew 1 tablet (81 mg total) and swallow in the morning. Active aspirin 81 MG EC tablet 1 (one) time each day at the same time. Active atorvastatin 20 mg oral tablet (5 sources) HMG-CoA Reductase Inhibitor take 1 tablet by mouth in the morning, then take 1 tablet by mouth at bedtime atorvastatin (LIPITOR) 20 mg tablet Take 1 tablet (20 mg total) by mouth in the morning and 1 tablet (20 mg total) before bedtime. Active carvedilol 6.25 mg oral tablet (9 sources) alpha-Adrenergic Sara, beta-Adrenergic Sara Start: 11-24-20 take 1 tablet by mouth twice daily carvedilol (Coreg) 6.25 MG tablet Indications: Primary hypertension (CMS/HCC) TAKE ONE TABLET BY MOUTH TWICE A DAY 180 tablet 3 11/24/2023 Active cephalexin 500 mg oral capsule (2 sources) Cephalosporin Antibacterial Start: 01-04-20 cephalexin (Keflex) 500 MG capsule citalopram 40 mg oral tablet (9 sources) Serotonin Reuptake Inhibitor Start: 08-29-20 take 1 tablet by mouth once daily [...] ointment ferrous sulfate 325 mg oral tablet (9 sources) Start: 08-29-2024 take 1 tablet by [...] 08/31/2023 Active furosemide 20 mg oral tablet (9 sources) Loop Diuretic Start: 05-23-2024 take 2 tablets by mouth once daily furosemide (Lasix) 20 MG tablet Indications: Acute bilateral venous stasis dermatitis TAKE 2 TABLETS BY MOUTH DAILY 180 tablet 1 05/23/2024 Active Start: 08-21-2023 take 2 tablets by mo uth once daily furosemide (Lasix) 20 MG tablet Indications: Acute bilateral venous stasis dermatitis TAKE TWO TABLETS BY MOUTH DAILY 180 tablet 2 08/21/2023 Active take 1 tablet by garcia th twice daily furosemide (LASIX) 20 mg tablet Take 1 tablet (20 mg total) by mouth 2 (two) times a day. Active ibuprofen 200 mg oral tablet (4 [...] MEAL 90 capsule 2 08/21/2023 Active Oxygen (5 sources) oxygen Inhale 3- 4 L/min as needed. Active oxygen Inhale 3- 4 L/min as needed. 0 Active potassium chloride 10 meq extended release oral tablet (10 sources) Start: 08-30-2024 take 1 tablet by [...] 1 tablet by garcia th once daily at mealtime potassium chloride CR (K-Tab) 20 MEQ ER tablet Indications: Hypokalemia TAKE ONE TABLET BY MOUTH DAILY WITH FOOD 90 tablet 3 08/31/2023 Active take 1 dose by mouth in the morning potassium chloride (KLOR-CON) 20 mEq packet Take 1 packet (20 mEq total) by mouth in the morning. Active rosuvastatin calcium 10 mg oral tablet (4 sources) HMG-CoA Reductase Inhibitor Start: 03-03-2023 rosuvastatin (Crestor) 10 MG tablet 1 (one) time each day at the same time. 03/03/2023 Active zinc gluconate 50 mg oral tablet (4 sources) zinc gluconate 5 0 MG tablet 1 (one) time each day at the same time. Active zinc sulfate 220 mg oral capsule (5 sources) take 1 capsule by mouth in the morning zinc sulfate (ZINCATE) 50 mg zinc (220 mg) capsule Take 1 capsule (220 mg total) by mouth in the morning. Active Problems Active Problems Problem Classification Problem Date Documented Date Episodic/Chronic Chronic ulcer of skin (20 sources) Non-pressure chronic ulcer of left ankle limited to breakdown of skin; Translations: [Non-pressure chronic ulcer of other part of right foot with fat layer exposed] Onset: 05-05-2022 Resolved: 02-24-2024 Chronic Coronary atherosclerosis and other heart disease (4 sources) Coronary arteriosclerosis; Translations: [Atherosclerotic heart disease of [place] coronary artery without angina pectoris] Onset: 06-08-2023 06-08-2023 Chronic Disorders of lipid metabolism (5 sources) Mixed hyperlipidemia; Translations: [Mixed hyperlipidemia] Onset: 01-23-2023 06-08-2023 Chronic Esophageal disorders (4 sources) Gastroesophageal reflux disease; Translations: [Gastro-esophageal reflux disease without esophagitis] Onset: 06-08-2023 06-08-2023 Chronic Essential hypertension (12 sources) Essential (primary) hypertension; Translations: [Essential hypertension] Onset: 02-11-2018 08-26-2023 Chronic Fluid and electrolyte disorders (1 source) Hypokalemia; Translations: [Hypokalemia] 08-30-2024 Episodic Gangrene (2 sources) Critical lower limb ischemia ; Translations: [Atherosclerosis of [place] arteries of extremities with gangrene, right leg] Onset: 03-24-2024 11-03-2024 Chronic Malaise and fatigue (2 sources) Fatigue; [...] Chronic Other nutritional; endocrine; and metabolic disorders (9 sources) Alveolar hypoventilation; Translations: [Morbid (severe) obesity with alveolar hypoventilation] Onset: 02-11-2018 08-26-2023 Chronic Paralysis (18 sources) Paraplegia, incomplete; Translations: [Cauda equina syndrome [...] Onset: 06-08-2023 06-08-2023 Chronic Residual codes; unclassified (12 sources) Obstructive sleep apnea syndrome; Translations: [Obstructive sleep apnea (adult) (pediatric)] Onset: 02-11-2018 06-08-2023 Chronic Residual codes; unclassified (5 sources) Localized edema; Translations: [LOCALIZED EDEMA] Onset: 01-23-2023 Episodic Respiratory failure; insufficiency; arrest (adult) (16 sources) Dependence on supplemental oxygen; Translations: [Chronic [...] 06-08-2023 Resolved: 02-24-2024 06-08-2023 Episodic Mood disorders (6 sources) Mood disorders Onset: 12-05-2020 Resolved: 02-23-2024 12-05-2020 Nutritional deficiencies (9 sources) Iron deficiency; Translations: [Iron deficiency] Onset: [...] 06-08-2023 06-08-2023 Episodic Other lower respiratory disease (5 sources) Restrictive lung disease due to kyphoscoliosis; Translations: [Other disorders of lung] Onset: 02-11-2018 02-11-2018 Episodic Other nervous system disorders (4 sources) Impaired cognition; Translations: [Other symptoms and signs involving cognitive functions and awareness] Onset: 06-08-2023 06-08-2023 Episodic Other nervous system disorders (11 sources) Myoneural disorder; Translations: [Myoneural disorder, unspecified] [...] 08-26-2023 Episodic Skin and subcutaneous tissue infections (11 sources) Cellulitis of right lower limb; Translations: [Cellulitis of right lower limb] Onset: 12-05-2020 08-26-2023 Episodic Varicose veins of lower extremity (13 sources) Venous stasis ulcer with edema of left lower leg; Translations: [Varicose veins of left lower extremity with ulcer of unspecified site] Onset: 10-06-2018 08-26-2023 Episodic Results Test Name Value Interpretation Reference Range Facil ity 25-hydroxyvitamin D3 [Mass/V ol]on 01-07-2024 Performing Organization Information Site ID: QPT Name: [facility] Address: April Grant , [address] [place] [id number] Director: Maninder Alves MD [facility] CBC W Auto Differential pane l (Bld)on 01-07-2024 Basophils (Bld) [#/Vol] 32 10*3/uL [facility] Basophils/100 WBC (Bld) 0.8 % [facility] Eosinophils (Bld) [#/Vol] 160 10*3/uL [facility] Eosinophils/100 WBC (Bld) 4.0 % [facility] Erythrocyte distribution width (RBC) [Ratio] 12.6 % 11.0 - 15.0 % [facility] Hematocrit (Bld) [Volume fraction] 37.7 % Low 38.5 - 50.0 % [facility] Hemoglobin (Bld) [Mass/Vol] 12.0 g/dL Low 13.2 - 17.1 g/dL [facility] Lymphocytes (Bld) [#/Vol] 664 10*3/uL Low [facility] Lymphocytes/100 WBC (Bld) 16.6 % [facility] MCH (RBC) [Entitic mass] 29.8 pg 27.0 - 33.0 pg [facility] MCHC (RBC) [Mass/Vol] 31.8 g/dL Low 32.0 - 36.0 g/dL [facility] MCV (RBC) [Entitic vol] 93.5 fL 80.0 - 100.0 fL [facility] Monocytes (Bld) [#/Vol] 452 10*3/uL [facility] Monocytes/100 WBC (Bld) 11.3 % [facility] Neutrophils (Bld) [#/Vol] 2692 10*3/uL [facility] Neutrophils/100 WBC (Bld) 67.3 % [facility] Platelet mean volume (Bld) [Entitic vol] 9.9 fL 7.5 - 12.5 fL [facility] are Platelets (Bld) [#/Vol] 179 10*3/uL [facility] RBC (Bld) [#/Vol] 4.03 10*6/uL Low [facility] WBC (Bld) [#/Vol] 4.0 10*3/uL [facility] Laboratory - Chemistry and C hemistry - challengeon 01-07-2024 Albumin [Mass/Vol] 3.9 g/dL 3.6 - 5.1 g/dL NO [facility] Albumin/Globulin [Mass ratio] 1.1 {ratio} [facility] ALP [Catalytic activity/Vol] 76 U/L 35 - 144 U/L [facility] ALT [Catalytic activity/Vol] 14 U/L 9 - 46 U/L [facility] AST [Catalytic activity/Vol] 18 U/L 10 - 35 U/L [facility] Bilirubin [Mass/Vol] 0.4 mg/dL 0.2 - 1.2 mg/dL [facility] Calcium [Mass/Vol] 9.0 mg/dL 8.6 - 10. 3 mg/dL [facility] Chloride [Moles/Vol] 103 mmol/L 98 - 110 mmol/L [facility] CO2 [Moles/Vol] 29 mmol/L 20 - 32 mmol/L [facility] Creatinine [Mass/Vol] 0.61 mg/dL Low 0.70 - 1.28 mg/dL [facility] GFR/1.73 sq M.predicted among non-blacks MDRD (S/P/Bld) [Vol rate/Area] 100 mL/min/{1.73_m2} > OR = 60 mL/min/1.73m2 [facility] Globulin (S) [Mass/Vol] 3.4 g/dL [facility] Glucose [Mass/Vol] 90 mg/dL 65 - 99 mg/dL [facility] Comment on above: Fasting reference interval Potassium [Moles/Vol] 4.1 mmol/L 3.5 - 5.3 mmol/L [facility] Protein [Mass/Vol] 7.3 g/dL 6.1 - 8.1 g/dL NO [facility] Sodium [Moles/Vol] 143 mmol/L 135 - 146 mmol/L [facility] TSH Qn 1.54 m[IU]/L [facility] are Urea nitrogen [Mass/Vol] 16 mg/dL 7 - 25 mg/dL [facility] Urea nitrogen/Creatinine [Mass ratio] 26 mg/mg High [facility] 25-hydroxyvitamin D3 [Mass/Vol] 36 ng/mL 30 - 100 ng/mL [facility] Comment on above: Vitamin D Status 25- [place] Vitamin D: Deficiency: <20 ng/mL Insufficiency: 20 - 29 ng/mL Optimal: > or = 30 ng/mL For 25-OH Vitamin D testing on patients on D2-supplementation and patients for whom quantitation of D2 and D3 fractions is required, the QuestAssureD(TM) 25-OH VIT D, (D2,D3), LC/MS/MS is recommended: order code 59633 (patients >2yrs). See Note 1 Note 1 For additional information, please refer to http://education.VODECLIC/faq/SJV428 (This link is being provided for informational/ educational purposes only.) No Panel Informationon 01-07 Interpretation and review of laboratory results Abnormal [facility] Performing Organization Information Site ID: QPT Name: [facility] Address: [address] [place] [id number] Director: Maninder Alves MD [facility] Vital Signs Date Time Vital Sign Value Performing Clinician Facility 11-03-2024 11:14-0500 Body height 182.9 cm Abraham Pimentel MD Work Phone: [facility] 11-03-2024 11:14-0500 Body mass index (BMI) [Ratio] 33.91 kg/m2 Abraham Pimentel MD Work Phone: [facility] 11-03-2024 11:14-0500 Body temperature 97.2 [degF] Abraham Pimentel MD Work Phone: [facility] 11-03-2024 11:14-0500 Body weight 113.4 kg Abraham Pimentel MD Work Phone: [facility] 11-03-2024 11:14-0500 Diastolic blood pressure 74 mm[Hg] Abraham Pimentel MD Work Phone: [facility] 11-03-2024 11:14-0500 Heart rate 63 /min Abraham Pimentel MD Work Phone: [facility] 11-03-2024 11:14-0500 SaO2% (BldA) [Mass fraction] 97 % Abraham Pimentel MD Work Phone: [facility] 11-03-2024 11:14-0500 Systolic blood pressure 116 mm[Hg] Abraham Pimentel MD Work Phone: [facility] 01-06-2024 13:04-0500 Body height 182.9 cm Marlene Moyer VEHICLE WASHER Work Phone: [facility] 01-06-2024 13:04-0500 Diastolic blood pressure 80 mm[Hg] Marlene Moyer VEHICLE WASHER Work Phone: [facility] 01-06-2024 13:04-0500 Heart rate 71 /min Marlene Moyer VEHICLE W[employer]ER Work Phone: [facility] 01-06-2024 13:04-0500 SaO2% (BldA) [Mass fraction] 93 % Marlene Moyer VEHICLE W[employer]ER Work Phone: [facility] 01-06-2024 13:04-0500 Systolic blood pressure 118 mm[Hg] Marlene Moyer VEHICLE WASHER Work Phone: [facility] Encounters Encounter Date Encounter Type Care Provider Facility Start: 11-03-2024 End: 11-03-2024 Office outpatient visit 25 minutes Abraham Pimentel MD Work Phone: [facility] Comment on above: Critical limb ischem ia of right lower extremity with gangrene ([facility]) (Primary Dx) Start: 08-30-2024 End: 08-30-2024 Orders Only Marlene Moyer VEHICLE WASHER Work Phone: [facility] Comment on above: Hypokalemia Start: 08-29-2024 End: 08-29-2024 ambulatory MARLENE MOYER Not Available Start: 02-25-2024 End: 02-25-2024 Office outpatient new 45 minutes Abraham Pimentel MD Work Phone: [facility] Comment on above: Venous ulcer-leg syn drome, bilateral ([facility]) (Primary Dx); Varicose veins of bilateral lower [...] Office outpatient visit 25 minutes Marlene Moyer VEHICLE WASHER Work Phone: [facility] Comment on [...] Available Start: 01-01-2024 Telephone encounter Marlene pierre VEHICLE WASHER Work Phone: [facility] Start: 04-07-2023 End: 04-08-2023 ambulatory [facility] Facility:H1 Start: 03-16-2023 End: 03-17-2023 ambulatory [facility] Facility:H1 Start: 02-13-2023 End: 02-14-2023 ambulatory [facility] Facility:H1 Start: 01-12-2023 End: 01-13-2023 ambulatory [facility] Facility:H1 Start: 01-01-2023 End: 01-02-2023 ambulatory [...] with white cell differential, automated Marlene Moyer VEHICLE WASHER Work Phone: Start: 01-06-2024 End: 01-06-2024 Comprehensive metabolic panel Marlene Moyer VEHICLE WASHER Work Phone: Start: 01-06-2024 TSH W/REFLEX TO FT4 Praneeth Moyer VEHICLE WASHER Work Phone: Start: 06-08-2023 H/O: colostomy Colostomy status Cassandra Moyer VEHICLE WASHER Work Phone: H/O: colostomy 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) Marlene Moyer VEHICLE WASHER Work Phone: Plan of Treatment Date Care Activity Detail Author Start: 04-20-2025 End: 04-20-2025 Patient encounter procedure 04/20/2025 10:30 AM EDT Office Visit [facility] [address] [place] [phone] Abraham Pimentel MD [address], [address] [address] [facility] Start: 04-07-2025 Tobacco Screening Tobacco Screening [facility] Start: 02-21-2025 End: 02-21-2025 Patient encounter procedure 02/21/2025 1:00 PM EDT Office Visit [facility] [address] [place] [phone] Marlene Moyer NP [address] [place], [place] [id number] [facility] Start: 10-15-2024 Tobacco Screening Tobacco Screening [facility] Start: 08-30-2024 End: 08-30-2025 Basic metabolic 1998 panel - Serum or Plasma Basic metabolic panel Lab Routine Hypokalemia Expected: 08/30/2024 (Approximate), Expires: 08/30/2025 [facility] Work Phone: Comment on above: Expected: 08/30/2024 (Approximate), Expires: 08/30/2025 Start: 03-01-2024 End: 08-27-2025 .doppler Lower extremity vein - bilateral Vas venous duplex insufficiency lwr bi Vascular Ultrasound Routine Venous ulcer-leg syndrome, bilateral (CMS-HCC) 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 complications Expected: 03/01/2024 (Approximate), Expires: 08/27/2025 [facility] Work Phone: Comment on above: Expected: 03/01/2024 (Approximate), Expires: 08/27/2025 Start: 02-26-2024 Medicare Annual Wellness (AWV) Medicare Annual Wellness (AWV) [facility] Start: 02-25-2024 End: 02-25-2024 Patient encounter procedure 02/25/2024 1:30 PM EDT Office Visit [facility] [address] [place] [phone] Abraham Pimentel MD [address], [address] [place] [address] [facility] Start: 02-23-2024 End: 02-23-2024 Patient encounter procedure 02/23/2024 1:00 PM EDT [facility] [address] [place] [phone] Marlene Moyer NP [address] [place] [address] [facility] Start: 02-11-2024 End: 02-11-2024 Patient encounter procedure 02/11/2024 2:50 PM EDT Office Visit [facility] [place] [phone] Abraham Pimentel MD [address], [facility] [address] [place] [address] [facility] Start: 07-31-2023 COVID-19 Vaccine ( season) COVID-19 Vaccine () [facility] Start: 07-17-2023 Adult BMI Screening Adult BMI Screen ing [facility] Start: 2012 Fall Risk Screening Fall Risk Screen ing [facility] Start: 1966 DTaP,Tdap and Td Vaccines (1 - Tdap) DTaP,Tdap and Td Vaccines (1 - Tdap) [facility] Start: 1959 Depression Screening Depression Scre ening [facility] Start: 1947 Medicare Annual Wellness Visit Medicare Annual Wellness Visit [facility] Immunizations Immunization Date Immunization Notes Care Provider Fa cili 08-29-2024 influenza, high dose seasonal, preservative-free Marlene Moyer NP Work Phone: [facility] 08-29-2024 SARS-COV-2 (COVID-19 ) vaccine, mRNA, spike protein, LNP, PF, jak-sucrose, 30 mcg/0.3 mL Marlene Kampfer VEHICLE WASHER Work Phone: [facility] 08-28-2023 zoster vaccine recombinant Marlene Kampfer VEHICLE WASHER Work Phone: [facility] 08-26-2023 Influenza, High-dose Seasonal, Quadrivalent, Preservative Free Marlene Kampfer VEHICLE WASHER Work Phone: [facility] 08-27-2022 Influenza, High-dose Seasonal, Quadrivalent, Preservative Free Marlene Kampfer VEHICLE WASHER Work Phone: [facility] 08-27-2021 Influenza, High-dose Seasonal, Quadrivalent, Preservative Free Marlene Kampfer VEHICLE WASHER Work Phone: [facility] 02-06-2021 COVID-19 Vaccine, vector-nr, rS-Ad26, PF, 0.5mL [facility] 11-22-2020 influenza, injectabl e, quadrivalent, contains preservative Marlene Kampfer VEHICLE WASHER Work Phone: [facility] 09-26-2019 Influenza, High-dose Seasonal, Quadrivalent, Preservative Free Marlene Kampfer VEHICLE WASHER Work Phone: [facility] 09-06-2018 Influenza, High-dose Seasonal, Quadrivalent, Preservative Free Marlene Kampfer VEHICLE WASHER Work Phone: [facility] Work Phone: 09-21-2017 Influenza, High-dose Seasonal, Quadrivalent, Preservative Free Marlene Kampfer VEHICLE WASHER Work Phone: [facility] 09-15-2016 Influenza, High-dose Seasonal, Quadrivalent, Preservative Free Marlene Kampfer VEHICLE WASHER Work Phone: [facility] 05-01-2016 pneumococcal polysaccharide vaccine, 23 valent Marlene Kampfer VEHICLE WASHER Work Phone: [facility] 09-10-2015 pneumococcal conjuga te vaccine, 13 valent Marlene Kampfer VEHICLE WASHER Work Phone: [facility] 11-30-2005 pneumococcal polysaccharide vaccine, 23 valent Marlene Kampfer VEHICLE WASHER Work Phone: [facility] Healthcare Payers Date Payer Category Payer Medicare [id number] 2017 Medicare HMO [employer] MED[employer]ARE [id number] 1959 Unknown [id number] 1947 Unknown [id number] [id number] 3 1947 Unknown [id number] 2.16.840.1.325852.3.579.2.59 3 1947 Unknown [id number] [id number] 3 1947 Unknown [id number] 2.16.840.1.114535.3.579.2.59 3 1947 Unknown [id number] 2.16.840.1.529373.3.579.2.59 3 1947 Unknown [id number] 2.16.840.1.783807.3.579.2.59 3 1947 Unknown [id number] 2.16.840.1.984254.3.579.2.59 3 1947 Unknown [id number] 2.16.840.1.825720.3.579.2.59 3 1947 Unknown [id number] 2.16.840.1.290751.3.579.2.59 3 1947 Unknown [id number] 2.16.840.1.290031.3.579.2.59 3 1947 Unknown [id number] 2.16.840.1.456166.3.579.2.59 3 1947 Unknown [id number] 2.16.840.1.185750.3.579.2.59 3 1947 Unknown [id number] 2.16.840.1.719325.3.579.2.59 3 1947 Unknown [id number] 2.16.840.1.353333.3.579.2.59 3 1947 Unknown [id number] 2.16.840.1.016432.3.579.2.59 3 1947 Unknown [id number] 2.16.840.1.913697.3.579.2.59 3 1947 Unknown [id number] 2.16.840.1.893875.3.579.2.12 59 1947 Unknown [id number] 2.16.840.1.676158.3.579.2.12 59 1947 Unknown [id number] 59 Social History Date Type Detail Facility Start: 08-26-2023 End: 02-29-2024 Tobacco smoking status SDIS Never smoked tobacco [facility] Start: 08-26-2023 End: 02-29-2024 Tobacco use and exposure Smokeless tobacco non-user [facility] Start: 12-21-2023 End: 08-29-2024 Alcohol intake Ex-drinker (finding) [facility] Start: 12-10-2020 End: 08-26-2023 History of Social function [facility] Start: 12-10-2020 End: 08-26-2023 Tobacco use panel [facility] Start: 08-25-2023 Alcohol Comment caffeine: [...] DK or Refused [facility] Start: 10-15-2023 End: 11-03-2024 Alcohol intake Current drinker of alcohol (finding) [facility] Start: 11-03-2016 Alcohol Comment occasionally [facility] Start: 07-05-2015 Sex Male (finding) [facility] Goals Date Patient Goal Desired Activity /State Personal health goal Comment on above: Formatting of this n ote might be different from the original. Evaluation of progress towards goal: Safe dc transition from hospital to home with resumption of HHC. Clinical Notes 05-27-2022 to 11-03-2024 Assessment & Plan Note - Abraham Pimentel MD - 11/03/2024 11:43 AM ESTAssessment & Plan Note - Abraham Pimentel MD - 11/03/2024 11:43 AM ESTAbraham Pimentel MD - 11/03/2024 11:00 AM EST Note Date & Type Note Facility 11-03-2024 Evaluation + Plan note Associated Problem(s): Critical 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 ([facility]) Right below-knee amputation. We had a long discussion. He has normal arterial flow however he had combination of venous ulcer and he had a recent toe amputations that are nonhealing with frequent infections. He has been using wheelchair for the last 15 years. He would like to proceed with below-knee amputation because he does not want to go through continuous wound care efforts since the wound has been there for years. [facility] 11-03-2024 Miscellaneous Notes Associated Problem(s): Critical 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 ([facility]) Right below-knee amputation. We had a long discussion. He has normal arterial flow however he had combination of venous ulcer and he had a recent toe amputations that are nonhealing with frequent infections. He has been using wheelchair for the last 15 years. He would like to proceed with below-knee amputation because he does not want to go through continuous wound care efforts since the wound has been there for years. documented in this encounter [facility] 11-03-2024 History of Present illness Narrative Images from the original note were not included. To: KERRI LE, HPI: Kj Mora is a 79 y.o. male with Bilateral lower extremity venous ulcers. He has normal ABIs. The right side he had multiple wounds and wound care and toe amputations by podiatry. He comes in today because she would like to proceed with a right lower extremity below-knee amputation. We had a long discussion. He has normal arterial flow however he had combination of venous ulcer and he had a recent toe amputations that are nonhealing with frequent infections. He has been using wheelchair for the last 15 years. He would like to proceed with below-knee amputation because he does not want to go through continuous wound care efforts since the wound has been there for years. Review of Systems: Review of Systems Constitutional: Negative. HENT: Negative. Respiratory: Negative. Cardiovascular: Negative. Gastrointestinal: Negative. Endocrine: Negative. Genitourinary: Negative. Musculoskeletal: Negative. Skin: Negative. Neurological: Negative. Hematological: Negative. Medications: Current Outpatient Medications on File Prior to Visit Medication Sig Dispense Refill ascorbic acid (VITAMIN C) 500 mg tablet Take 1 tablet (500 mg total) by mouth in the morning. aspirin 81 mg chewable tablet Chew 1 tablet (81 mg total) and swallow in the morning. carvedilol (COREG) 6.25 mg tablet Take 1 tablet (6.25 mg total) by mouth in the morning and 1 tablet (6.25 mg total) before bedtime. citalopram (CeleXA) 40 mg tablet Take 1 tablet (40 mg total) by mouth in the morning. ferrous sulfate 325 (65 FE) mg tablet Take 1 tablet (325 mg total) by mouth in the morning and 1 tablet (325 mg total) before bedtime. furosemide (LASIX) 20 mg tablet Take 1 tablet (20 mg total) by mouth 2 (two) times a day. oxygen Inhale 3-4 L/min as needed. potassium chloride (KLOR-CON) 20 mEq packet Take 1 packet (20 mEq total) by mouth in the morning. zinc sulfate (ZINCATE) 50 mg zinc (220 mg) capsule Take 1 capsule (220 mg total) by mouth in the morning. amLODIPine (NORVASC) 5 mg tablet Take 1 tablet (5 mg total) by mouth in the morning. (Patient not taking: Reported on 11/03/2024) atorvastatin (LIPITOR) 20 mg tablet Take 1 tablet (20 mg total) by mouth in the morning and 1 tablet (20 mg total) before bedtime. (Patient not taking: Reported on 11/03/2024) No current facility-administered medications on file prior to visit. Past Medical History: Past Medical History: Diagnosis Date Anemia Chronic hypercapnic respiratory failure ([facility]) COPD (chronic obstructive pulmonary disease) ([facility]) Depression Disease of lung HTN (hypertension) Obesity EMMA (obstructive sleep apnea) Paraplegia ([facility]) Past Surgical History: Past Surgical History: Procedure Laterality Date COLOSTOMY ESOPHAGOGASTRODUODENOSCOPY PILONIDAL CYST / SINUS EXCISION VEIN SURGERY Left 07/15/2019 LT SSV EVLT / PHLEBS Social and Family History: Social History Socioeconomic History Marital status: Spouse [...] Social History Narrative Not on file Social Drivers of Health Financial Resource Strain: Patient Declined (01/01/2024) [facility] Overall Financial Resource Strain (CARDIA) Difficulty of Paying Living Expenses: Patient declined Food Insecurity: No Food Insecurity (11/03/2024) Hunger Screening Food Insecurity - Worry: Never True Food Insecurity - Inability: Never True Transportation Needs: Patient Declined (01/01/2024) [facility] - Transportation Lack of Transportation (Medical): Patient declined Lack of Transportation (Non-Medical): Patient declined Physical Activity: Patient Declined (01/01/2024) [facility] Exercise Vital Sign Days of Exercise per Week: Patient declined Minutes of Exercise per Session: Patient declined Stress: Patient Declined (01/01/2024) Received from [facility] Occupational Health - Occupational Stress Questionnaire Feeling of Stress : Patient declined Social Connections: Unknown (01/01/2024) [facility] Social Connection and Isolation Panel [NHANES] Frequency of Communication with Friends and Family: More than three times a week Frequency of Social Gatherings with Friends and Family: Patient declined Attends Jainism Services: Not on file Active Member of Clubs or Organizations: Patient declined Attends Club or Organization Meetings: Patient declined Marital Status: Interpersonal Safety: Patient Declined (01/01/2024) [facility] Humiliation, Afraid, Rape, and Kick questionnaire Fear of Current or Ex-Partner: Patient declined Emotionally Abused: Patient declined Physically Abused: Patient declined Sexually Abused: Patient declined Housing Instability: Unknown (01/01/2024) Re[facility] from [facility] Housing Stability Vital Sign Unable to Pay for Housing in the Last Year: Patient refused Number of Places Lived in the Last Year: Not on file Unstable Housing in the Last Year: Patient refused Family History Problem Relation Age of Onset Cancer Mother COPD Father Recent Labs: Recent and relative labs were reviewed and interpreted and contributed to the assessment and plan below. Vitals: BP 116/74 (BP Site: Left Arm, BP Postition: Sitting, BP CUFF SIZE: M (9-13 inches)) Pulse 63 Temp 36.2 C (97.2 F) (Temporal) Ht 182.9 cm (6') Wt 113.4 kg (250 lb) SpO2 97% BMI 33.91 kg/m Body mass index is 33.91 kg/m . Physical Exam: Physical Exam Constitutional: Appearance: Normal appearance. HENT: Head: Normocephalic and atraumatic. Mouth/Throat: Mouth: Mucous membranes are moist. Eyes: Extraocular Movements: Extraocular movements intact. Pupils: Pupils are equal, round, and reactive to light. Cardiovascular: Rate and Rhythm: Normal rate and regular rhythm. Pulmonary: Effort: Pulmonary effort is normal. Breath sounds: Normal breath sounds. Abdominal: General: Abdomen is flat. Bowel sounds are normal. Palpations: Abdomen is soft. Musculoskeletal: General: Normal range of motion. Cervical back: Normal range of motion. Skin: General: Skin is warm and dry. Neurological: General: No focal deficit present. Mental Status: He is alert and oriented to person, place, and time. Mental status is at baseline. Psychiatric: Mood and Affect: Mood normal. Behavior: Behavior normal. Thought Content: Thought content normal. Judgment: Judgment normal. 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 Continue wound care. Agustin was seen today for non-healing wound from wound care. 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 While intending to generate a timely document that accurately reflects the content of the visit, no guarantee can be provided that every grammatical or spelling mistake has been or will be identified or corrected. Thank you for your understanding. documented in this encounter [facility] 02-25-2024 Evaluation + Plan note Associated Problem(s): Venous ulcer-leg syndrome, bilateral (CMS-HCC) Venous reflux ultrasound Bilateral lower extremity ultrasound-guided injection sclerotherapy [facility] 02-25-2024 Miscellaneous Notes Associated Problem(s): Venous ulcer-leg syndrome, bilateral (CMS-HCC) Venous reflux ultrasound Bilateral lower extremity ultrasound-guided injection sclerotherapy documented in this encounter [facility] 02-25-2024 History of Present illness Narrative Images from the original note were not included. [facility] [address] [facility] [id number] Subjective: Patient ID: Kj Mora is a [...] edema of left lower leg (CMS-HCC) Paraplegia (CMS-HCC) Cellulitis of right lower extremity Venous ulcer-leg syndrome, bilateral (CMS-HCC) Current Outpatient Medications: amLODIPine (NORVASC) 5 mg [...] Diagnosis Date Anemia Chronic hypercapnic respiratory failure ([facility]) COPD (chronic obstructive pulmonary disease) ([facility]) Depression Disease of lung HTN (hypertension) Obesity EMMA (obstructive sleep apnea) Paraplegia ([facility]) Past Surgical History: Procedure Laterality Date COLOSTOMY [...] Surgery documented in this encounter [facility] 02-04-2024 Miscellaneous Notes Received a new patient referral from patient wound care doctor. Called a left a voicemail for the patient to call back to schedule new patient appointment with Dr. Pimentel in [facility] documented in this encounter [facility] 02-04-2024 Telephone encounter Note Received a new patient referral from patient wound care doctor. Called a left a voicemail for the patient to call back to schedule new patient appointment with Dr. Pimentel in [email or web address] 01-21-2024 Miscellaneous Notes Received copy of denial letter from [employer] into [employer]. Emailed to Ines at [facility] to clarify as office visit was complete and pt is compliant- unsure if denial is due to elevated AHI? documented in this encounter [facility] [employer] [facility] 01-21-2024 Telephone encounter Note Received copy of denial letter from [employer]. Emailed to Ines smith [facility] to clarify as office visit was complete and pt is compliant- unsure if denial is due to elevated AHI? [facility] 01-06-2024 History of Present illness Narrative Kj Mora is a 78 y.o. male presents with chief complaint of Establish Care, Cellulitis, and Follow-up HPI: Patient is here to establish care and to follow-up on cellulitis. He went to wound care yesterday, they gave citalopram. He states he [facility] to [facility] to check legs pressure and vein [...] by wound center documented in this encounter [facility] 01-01-2024 Telephone encounter Note Ana from [facility] has concerns with pt stating that he seems more tired and his edema is more than normal. She would like to have labs ordered. Please call [phone] with orders. [facility] 01-01-2024 Miscellaneous Notes Ana from [facility] has concerns with pt stating that he seems more tired and his edema is more than normal. She would like to have labs ordered. Please call [phone] with orders. documented in this encounter [facility] 05-27-2022 Note PROCEDURE: XR FOOT R T [...] by: ELIEL WORTHINGTON Date: 2022-05-27 07:13 [facility] Evaluation note [...] (Z93.3) Colostomy status documented in this encounter [facility] HealthcareEvaluation [facility]* Diagnosis EMMA (obstructive sleep apnea)- Primary Obstructive sleep apnea (adult) (pediatric) [facility] Diagnosis Venous ulcer-leg syndrome, bilateral (CMS-HCC)- Primary 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 complications documented in this encounter [facility]* Diagnosis Hypokalemia Hypopotassemia documented in this encounter [facility] HealthcareEvaluation note* Diagnosis Venous ulcer-leg syndrome, bilateral (CMS-HCC)- Primary 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 ulcer-leg syndrome, bilateral (CMS-HCC)- Primary Critical 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 (CMS-HCC) Venous ulcer-leg syndrome, bilateral (CMS-HCC)- Primary Critical 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 (CMS-HCC) Critical 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 (CMS-HCC)- Primary documented in this encounter [facility] SystemInstructionsNot on filedocumented in this encounter [facility] SystemInstructionsNot on filedocumented in this encounter [facility] SystemInstructionsNot on filedocumented in this encounter [facility] Summary Purpose Family History No Family History Records FoundNo Family History Records Found Advance Directives Documents on File Type Date Recorded Patient Qa Tester Expl anation Advance Directives and Living Will 09/15/2018 2001-05-13 Living Wi ll Advance Directives and Living Will 09/15/2018 2001-05-13 Health[facility] POA Latest Code Status on File Code Status Date Activated Date Inactivated Comments DNR Comfort Care Arrest (DNR-CCA) [place] 12/05/2020 7:21 P M 12/11/2020 6:03 PM Latest Code Status on File Code Status Date Activated Date Inactivated Comments DNR Comfort Care Arrest (DNR-CCA) [place] 12/05/2020 7:21 P M 12/11/2020 6:03 PM Date Activated Date Inactivated Comments 12/05/2020 7:21 PM 12/11/2020 6:03 PM Reason for Referral Specialty Diagnoses / Procedures Referred By Contac t Referred To Contact Diagnoses Venous ulcer-leg syndrome, bilateral (CMS-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 Care Teams (unrecognized sec tion and content) Community Health Agent Relationship Specialty Start Date End Date Ines Cole MD [address] [place] [address] PCP - General Family Medicine 12/17/23 Marlene Moyer NP [address] [place] [place] [address] Nurse Practitioner Family Medicine 12/17/23 Community Health Agent Relationship Specialty Start Date End Date Ines Cole MD [address] [place] [address] PCP - General Family Medicine 12/17/23 Marlene Moyer NP [address] [place] [address] Nurse Practitioner Family Medicine 12/17/23 Community Health Agent Relationship Specialty Start Date End Date Kerri Le [address] [place] [address] PCP - General Family Medicine 11/29/21 Community Health Agent Relationship Specialty Start Date End Date Kerri LeDO [address] [place] [place] [address] PCP - General Family Medicine 11/29/21 Community Health Agent Relationship Specialty Start Date End Date Kerri LeDO [address] [place] [place] [address] PCP - General Family Medicine 11/29/21 Community Health Agent Relationship Specialty Start Date End Date Ines Cole MD [address] [place] [place] [address] PCP - General Family Medicine 12/17/23 Marlene Moyer NP [address] [place] [place] [address] Nurse Practitioner Family Medicine 12/17/23 Community Health Agent Relationship Specialty Start Date End Date Mimi Kerri ChappellDO [address] [place] [place] [address] PCP - General Family Medicine 11/29/21 Reason for Visit (unrecogniz ed section and content) Reason Comments Establish Care Cellulitis Follow-up Reason Comments non-healing wound from wound care FOR RECORDS PERTAINING TO PATIENTS WHO ARE [...] BE BASED ON THE PRIMARY CLINICAL RECORDS. [facility]. provides no warranty or guarantee of the accuracy or completeness of information in this document.
== END 2024-11-16 11:38 | disposition home or self-care (01) ==
LOC: WC 11:38
PROVIDERS: PCP Family Medicine; Visit Provider Physician Assistant
DX: I87.312 Chronic venous hypertension (idiopathic) with ulcer of left lower extremity (principal); L97.321 Non-pressure chronic ulcer of left ankle limited to breakdown of skin; L97.512 Non-pressure chronic ulcer of other part of right foot with fat layer exposed; L97.311 Non-pressure chronic ulcer of right ankle limited to breakdown of skin; L89.893 Pressure ulcer of other site, stage 3; L89.622 Pressure ulcer of left heel, stage 2
CPT/HCPCS: 29580

== ENCOUNTER 2025-01-20 10:47 | Emergency (ER) | payer MEDICARE, SELFPAY ==
[2025-01-20 10:51] VITALS: BP 146/77; PULSE 89; TEMP 36.9; O2SAT 94; BMI 33.9
--- OUTSIDE RECORDS SUMMARY | 2025-01-20 11:02 | XMS_ITS | CCD ---
Author Organization [facility] Care Team Providers Care Financial Consultant Name Role Phone SILVANA WETZEL Admitting [...] Primary Care Provider Marlene Moyer NP Unavailable MARLENE MOYER Attending Unavailable MARLENE MOYER Attending Unavailable MARLENE MOYER Attending Unavailable Kerri Le DO Primary Care Provider Allergies Allergy Classification Reported Allergen(s) Allergy Type Date of Onset Reaction(s) Facility (2 sources) Adhesive agent Drug allergy (disorder) [facility] Repository (11 sources) Adhesive Tape-Silicones Propensity to adverse reactions to drug 8 [facility] Medications Current Medications Medication Drug Class(es) Dates Sig (Normalized) Sig (Original) ascorbic acid 250 mg chewable tablet (20 sources) Vitamin C ascorbic acid (V itamin C) 250 MG chewable tablet 1 (one) time each day at the same time. Active take 1 tablet by mouth in the mo rning ascorbic acid (VITAMIN C) 500 mg tablet Take 1 tablet (500 mg total) by mouth in the morning. Active aspirin 81 mg delayed release oral tablet (13 sources) Platelet Aggregation Inhibitor, Nonsteroidal Anti-inflammatory Drug aspirin 81 MG EC tab let 1 (one) time each day at the same time. Active aspirin 81 mg ch ewable tablet Chew 1 tablet (81 mg total) and swallow in the morning. Active atorvastatin 20 mg oral tablet (11 sources) HMG-CoA Reductase Inhibitor take 1 tablet by mouth in the morning, then take 1 tablet by mouth at bedtime atorvastatin (LIPITOR) 20 mg tablet Take 1 tablet (20 mg total) by mouth in the morning and 1 tablet (20 mg total) before bedtime. Active carvedilol 6.25 mg oral tablet (20 sources) alpha-Adrenergic Sara, beta-Adrenergic Sara Start: 11-24-20 End: 11-17-20 24 take 1 tablet by mouth twice daily carvedilol (Coreg) 6.25 MG tablet Indications: Primary hypertension (CMS/HCC) TAKE 1 TABLET BY MOUTH TWICE A DAY 180 tablet 1 11/17/2024 Active cephalexin 500 mg oral capsule (2 sources) Cephalosporin Antibacterial Start: 01-04-20 cephalexin (Keflex) 500 MG capsule citalopram 40 mg oral tablet (20 sources) Serotonin Reuptake Inhibitor Start: 08-21-20 End: 08-29-20 take 1 tablet by mouth once daily citalopram (CeleXA) 40 MG tablet Indications: 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) Take 1 tablet (40 mg) by mouth Daily 90 tablet 1 08/29/2024 Active ferrous sulfate 325 mg oral tablet (20 sources) Start: 01-05-20 take 1 tablet by mouth once daily FeroSul 325 (65 Fe) MG tablet Indications: 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 TAKE 1 TABLET BY MOUTH DAILY 90 tablet 1 01/05/2025 Active Start: 08-31-2023 End: 01-05-2025 take 1 tablet by mouth once daily ferrous sulfate (FeroSul) 325 (65 Fe) MG tablet Indications: 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 Take 1 tablet (325 mg) by mouth Daily 90 tablet 1 08/29/2024 01/05/2025 Discontinued furosemide 20 mg oral tablet (20 sources) Loop Diuretic Start: 05-23-2024 End: 11-22-2024 take 2 tablets by mouth once daily furosemide (Lasix) 20 MG tablet Indications: Acute bilateral venous stasis dermatitis Take 2 tablets (40 mg) by mouth Daily 180 tablet 1 11/22/2024 Active Start: 08-21-2023 take 2 tablets by mo [facility] once daily furosemide (Lasix) 20 MG tablet Indications: Acute bilateral venous stasis dermatitis TAKE TWO TABLETS BY MOUTH DAILY 180 tablet 2 08/21/2023 Active take 1 tablet by garcia twice daily furosemide (LASIX) 20 mg tablet Take 1 tablet (20 mg total) by mouth 2 (two) times a day. Active ibuprofen 200 mg oral tablet (11 sources) Nonsteroidal Anti-inflammatory Drug take 1 tablet by mouth once daily at mealtime as needed ibuprofen 200 MG tablet 1 tablet with food or milk as needed Orally pt taking daily Active lysine 1000 mg oral tablet (10 sources) L-lysine 1000 MG tablet Take by mouth Active Multiple Vitamin (MULTIVITAMIN ADULT PO) (11 sources) Multiple Vitamin (MULTIVITAMIN ADULT PO) 1 (one) time each day at the same time. Active Multiple Vitamin (MULTIVITAMIN ADULT PO) 1 (one) time each day at the same time. 0 Active omeprazole 40 mg delayed release oral capsule (12 sources) Proton Pump Inhibitor Start: 11-22-2024 take 1 capsule by mouth before mealtime omeprazole (PriLOSEC) [address] capsule Indications: Gastroesophageal reflux disease, unspecified whether esophagitis present Take 1 capsule (40 mg) by mouth in the morning. Take before meals. Do not crush or chew.. 90 capsule 1 11/22/2024 Active Start: 05-23-2024 End: 11-22-2024 omeprazole (PriLOSEC) [address] capsule Indications: Gastroesophageal reflux disease, unspecified whether esophagitis present TAKE 1 CAPSULE BY MOUTH DAILY 30 MINUTES BEFORE MORNING MEAL 90 capsule 1 05/23/2024 11/22/2024 Discontinued (Reorder) Start: 08-21-2023 omeprazole (Pr iLOSEC) [address] capsule Indications: Gastroesophageal reflux disease, unspecified whether esophagitis present TAKE ONE CAPSULE BY MOUTH DAILY 30 MINUTES BEFORE MORNING MEAL 90 capsule 2 08/21/2023 Active Oxygen (11 sources) oxygen Inhale 3- 4 L/min as needed. Active oxygen Inhale 3- 4 L/min as needed. 0 Active potassium chloride 10 meq extended release oral tablet (20 sources) Start: 11-21-2024 take 1 tablet by mouth at mealtime potassium chloride CR (Klor-Con) 10 MEQ ER tablet Indications: Hypokalemia Take 1 tablet (10 mEq) by mouth in the evening with food 90 tablet 1 11/21/2024 Active Start: 09-21-2024 take 1 tablet by garcia once daily potassium chloride CR (K-Tab) 20 MEQ ER tablet Indications: Hypokalemia Take 1 tablet (20 mEq) by mouth Daily Do not crush, chew, or split. 90 tablet 1 09/21/2024 Active Start: 08-30-2024 End: 11-18-2024 take 1 tablet by mouth at mealtime potassium chloride CR (Klor-Con) 10 MEQ ER tablet Indications: Hypokalemia Take 1 tablet (10 mEq) by mouth in the evening with food 90 tablet 08/30/2024 11/18/2024 Discontinued (Reorder) Start: 08-24-2024 End: 08-30-2024 take 1 tablet by mouth once daily at mealtime potassium chloride CR (K-Tab) 20 MEQ ER tablet Indications: Hypokalemia Take 1 tablet (20 mEq) by mouth Daily with food 90 tablet 1 08/29/2024 Active Start: 08-31-2023 [...] Active rosuvastatin calcium 10 mg oral tablet (11 sources) HMG-CoA Reductase Inhibitor Start: 03-03-2023 rosuvastatin (Crestor) 10 MG tablet 1 (one) time each day at the same time. 03/03/2023 Active zinc gluconate 50 mg oral tablet (11 sources) zinc gluconate 5 0 MG tablet 1 (one) time each day at the same time. Active zinc sulfate 220 mg oral capsule (11 sources) take 1 capsule by mouth in the morning zinc sulfate (ZINCATE) 50 mg zinc (220 mg) capsule Take 1 capsule (220 mg total) by mouth in the morning. Active Completed/Discontinued Medications Medication Drug Class(es) Dates Sig (Normalized) Sig (Original) amLODIPine 5 mg oral tablet (17 sources) Dihydropyridine Calcium Channel Sara Start: 01-19-2018 End: 08-29-2024 take 1 tablet by mouth once daily amLODIPine (Norvasc) 5 MG tablet Indications: Primary hypertension (CMS/HCC) TAKE 1 TABLET BY MOUTH DAILY 90 tablet 1 05/23/2024 08/29/2024 Discontinued (Other) collagenase 0.25 unt/mg topical ointment (6 sources) Collagen-specific Enzyme Start: 06-05-2022 End: 08-29-2024 Santyl 250 UNIT/GM ointment 06/05/2022 08/29/2024 Discontinued Problems Active Problems Problem Classification Problem Date Documented Date Episodic/Chronic Chronic ulcer of skin (20 sources) Non-pressure chronic ulcer of left ankle limited to breakdown of skin; Translations: [Non-pressure chronic ulcer of other part of right foot with fat layer exposed] Onset: 05-05-2022 Resolved: 02-24-2024 Chronic Coronary atherosclerosis and other heart disease (11 sources) Coronary arteriosclerosis; Translations: [Atherosclerotic heart disease of [place] coronary artery without angina pectoris] Onset: 06-08-2023 06-08-2023 Chronic Deficiency and other anemia (16 sources) 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; Translations: [Other iron deficiency anemias] Onset: 06-08-2023 Resolved: 02-24-2024 06-08-2023 Episodic Disorders of lipid metabolism (12 sources) Mixed hyperlipidemia; Translations: [Mixed hyperlipidemia] Onset: 01-23-2023 06-08-2023 Chronic Esophageal disorders (12 sources) Gastroesophageal reflux disease; Translations: [Gastro-esophageal reflux disease without esophagitis] Onset: 06-08-2023 06-08-2023 Chronic Essential hypertension (20 sources) Essential (primary) hypertension; Translations: [Essential hypertension] Onset: 02-11-2018 08-26-2023 Chronic Fluid and electrolyte disorders (4 sources) Hypokalemia; Translations: [Hypokalemia] 08-30-2024 Episodic Gangrene (9 sources) Critical lower limb ischemia ; Translations: [Atherosclerosis of [place] arteries of extremities with gangrene, right leg] Onset: 03-24-2024 03-24-2024 Chronic Immunizations and screening for infectious disease (2 sources) Patient encounter status; Translations: [Encounter for immunization] 08-29-2024 Episodic Malaise and fatigue (2 sources) Fatigue; Translations: [Other fatigue] 01-06-2024 Episodic Mood disorders (20 sources) Recurrent major depressive episodes, mild ; Translations: [Major depressive disorder, recurrent, mild] Onset: 06-08-2023 Resolved: 02-24-2024 06-08-2023 Chronic Other acquired deformities (11 sources) Acquired scoliosis; Translations: [Other secondary scoliosis, thoracolumbar region] Onset: 06-08-2023 06-08-2023 Chronic Other diseases of bladder and urethra (11 sources) Neurogenic bladder; Translations: [Neuromuscular dysfunction of bladder, unspecified] Onset: 06-08-2023 06-08-2023 Chronic Other diseases of veins and lymphatics (1 source) Chronic venous hypertension (idiopathic) with ulcer of left lower extremity; Translations: [CHRON VENOUS HTN W/ULCER LT LW EXT] Onset: 03-25-2023 Chronic Other diseases of veins and lymphatics (11 sources) Venous ulcer of lower extremity due [...] Episodic Other nutritional; endocrine; and metabolic disorders (11 sources) Obese class I; Translations: [Obesity, unspecified] Onset: 06-08-2023 06-08-2023 Chronic Other nutritional; endocrine; and metabolic disorders (20 sources) Alveolar hypoventilation; Translations: [Morbid (severe) obesity with alveolar hypoventilation] Onset: 02-11-2018 08-26-2023 Chronic Paralysis (20 sources) Paraplegia, incomplete; 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] Onset: 11-09-2019 06-08-2023 Chronic Peripheral and visceral atherosclerosis (2 sources) Peripheral vascular disease, unspecified; Translations: [Peripheral vascular disease, unspecified] Onset: 01-04-2023 03-17-2024 Chronic Residual codes; unclassified (1 source) Dependence on wheelchair; Translations: [DEPENDENCE ON WHEELCHAIR] Onset: 01-23-2023 Chronic Residual codes; unclassified (11 sources) Dependence on wheelchair; Translations: [Dependence on wheelchair] Onset: 06-08-2023 06-08-2023 Chronic Residual codes; unclassified (20 sources) Obstructive sleep apnea syndrome; Translations: [Obstructive sleep apnea (adult) (pediatric)] Onset: 02-11-2018 06-08-2023 Chronic Residual codes; unclassified (5 sources) Localized edema; Translations: [LOCALIZED EDEMA] Onset: 01-23-2023 Episodic Respiratory failure; insufficiency; arrest (adult) (20 sources) Dependence on supplemental oxygen; Translations: [Chronic hypoxemic respiratory failure] Onset: 09-22-2018 06-08-2023 Chronic Past or Other Problems Problem Classification Problem Date Documented Da te Episodic/Chronic Deficiency and other anemia (11 sources) Pancytopenia; Translations: [Other pancytopenia] Onset: 06-08-2023 Resolved: 02-24-2024 06-08-2023 Chronic Mood disorders (19 sources) Mood disorders Onset: 12-05-2020 Resolved: 02-23-2024 02-23-2024 Nutritional deficiencies (20 sources) Iron deficiency; Translations: [Iron deficiency] Onset: 09-14-2014 08-26-2023 Episodic Open wounds of extremities (11 sources) Amputated toe of right foot; Translations: [Complete traumatic amputation of one right lesser toe, initial encounter] Onset: 06-08-2023 Resolved: 02-24-2024 06-08-2023 Chronic Other bone disease and musculoskeletal deformities (11 sources) Osteopenia; Translations: [Other specified disorders of [...] Episodic Other diseases of veins and lymphatics (11 sources) Peripheral venous insufficiency; Translations: [Venous insufficiency (chronic) (peripheral)] Onset: 06-08-2023 06-08-2023 Episodic Other diseases of veins and lymphatics (9 sources) Disorder of vein of lower extremity; Translations: [Venous insufficiency (chronic) (peripheral)] Onset: 06-08-2023 Resolved: 02-24-2024 02-24-2024 Episodic Other lower respiratory disease (11 sources) Chronic respiratory insufficiency; Translations: [Other abnormalities of breathing] Onset: 06-08-2023 Resolved: 02-24-2024 06-08-2023 Episodic Other lower respiratory disease (11 sources) Restrictive lung disease; Translations: [Other disorders of lung] Onset: 06-08-2023 06-08-2023 Episodic Other lower respiratory disease (11 sources) Restrictive lung disease due to kyphoscoliosis; Translations: [Other disorders of lung] Onset: 02-11-2018 02-11-2018 Episodic Other nervous system disorders (11 sources) Impaired cognition; Translations: [Other symptoms and signs involving cognitive functions and awareness] Onset: 06-08-2023 06-08-2023 Episodic Other nervous system disorders (20 sources) Myoneural disorder; Translations: [Myoneural disorder, unspecified] Onset: 02-11-2018 08-26-2023 Episodic Other skin disorders (1 source) Personal history of diseases of the skin and subcutaneous tissue; Translations: [PERS HX DZ SKIN AND SUBCUTANEOUS TISSUE] Onset: 11-06-2022 Episodic Residual codes; unclassified (11 sources) 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; Translations: [Dependence on other enabling machines and devices] Onset: 06-08-2023 Resolved: 02-24-2024 06-08-2023 Chronic Residual codes; unclassified (3 sources) Edema; Translations: [Edema, unspecified] Onset: 08-26-2023 08-26-2023 Episodic Skin and subcutaneous tissue infections (20 sources) Cellulitis of right lower limb; Translations: [Cellulitis of right lower limb] Onset: 12-05-2020 08-26-2023 Episodic Varicose veins of lower extremity (20 sources) Venous stasis ulcer with edema of left lower leg; Translations: [Varicose veins of left lower extremity with ulcer of unspecified site] Onset: 10-06-2018 08-26-2023 Episodic Results Test Name Value Interpretation Reference Range Facil ity 25-hydroxyvitamin D3 [Mass/V ol]on 01-07-2024 Performing Organization Information Site ID: QPT Name: [facility] Address: [address] [place] [address], [address] [place] [id number] Director: Maninder Alves MD [facility] CBC W Auto Differential pane l (Bld)on 01-07-2024 Basophils (Bld) [#/Vol] 32 10*3/uL [facility] Basophils/100 WBC (Bld) 0.8 % [facility] Eosinophils (Bld) [#/Vol] 160 10*3/uL [facility] Eosinophils/100 WBC (Bld) 4.0 % [facility] Erythrocyte distribution width (RBC) [Ratio] 12.6 % 11.0 - 15.0 % [facility] Hematocrit (Bld) [Volume fraction] 37.7 % Low 38.5 - 50.0 % [facility] Hem[facility] (Bld) [Mass/Vol] 12.0 g/dL Low 13.2 - 17.1 g/dL [facility] Lymphocytes (Bld) [#/Vol] 664 10*3/uL Low [facility] Lymphocytes/100 WBC (Bld) 16.6 % [facility] MCH (RBC) [Entitic mass] 29.8 pg 27.0 - 33.0 pg [facility] MCHC (RBC) [Mass/Vol] 31.8 g/dL Low 32.0 - 36.0 g/dL [facility] MCV (RBC) [Entitic vol] 93.5 fL 80.0 - 100.0 fL [facility] Monocytes (Bld) [#/Vol] 452 10*3/uL [facility] Monocytes/100 WBC (Bld) 11.3 % [facility] Neutrophils (Bld) [#/Vol] 2692 10*3/uL [facility] Neutrophils/100 WBC (Bld) 67.3 % [facility] Platelet mean volume (Bld) [Entitic vol] 9.9 fL 7.5 - 12.5 fL [facility] Platelets (Bld) [#/Vol] 179 10*3/uL [facility] RBC (Bld) [#/Vol] 4.03 10*6/uL Low [facility] WBC (Bld) [#/Vol] 4.0 10*3/uL [facility] - Chemistry and C hemistry - challengeon 01-07-2024 Albumin [Mass/Vol] 3.9 g/dL 3.6 - 5.1 g/dL [facility] Albumin/Globulin [Mass ratio] 1.1 {ratio} [facility] ALP [Catalytic activity/Vol] 76 U/L 35 - 144 U/L [facility] ALT [Catalytic activity/Vol] 14 U/L 9 - 46 U/L [facility] AST [Catalytic activity/Vol] 18 U/L 10 - 35 U/L [facility] Bilirubin [Mass/Vol] 0.4 mg/dL 0.2 - 1.2 mg/dL [facility] Calcium [Mass/Vol] 9.0 mg/dL 8.6 - 10. 3 mg/dL [facility] Chloride [Moles/Vol] 103 mmol/L 98 - 110 mmol/L [facility] CO2 [Moles/Vol] 29 mmol/L 20 - 32 mmol/L [facility] Creatinine [Mass/Vol] 0.61 mg/dL Low 0.70 - 1.28 mg/dL [facility] GFR/1.73 sq M.predicted among non-blacks MDRD (S/P/Bld) [Vol rate/Area] 100 mL/min/{1.73_m2} > OR = 60 mL/min/1.73m2 [facility] Globulin (S) [Mass/Vol] 3.4 g/dL [facility] Glucose [Mass/Vol] 90 mg/dL 65 - 99 mg/dL [facility] Comment on above: Fasting reference interval Potassium [Moles/Vol] 4.1 mmol/L 3.5 - 5.3 mmol/L [facility] Protein [Mass/Vol] 7.3 g/dL 6.1 - 8.1 g/dL [facility] Sodium [Moles/Vol] 143 mmol/L 135 - 146 mmol/L [facility] TSH Qn 1.54 m[IU]/L [facility] Urea nitrogen [Mass/Vol] 16 mg/dL 7 - 25 mg/dL [facility] Urea nitrogen/Creatinine [Mass ratio] 26 mg/mg High [facility] 25-hydroxyvitamin D3 [Mass/Vol] 36 ng/mL 30 - 100 ng/mL [facility] Comment on above: Vitamin D Status 25- [place] Vitamin D: Deficiency: <20 ng/mL Insufficiency: 20 - 29 ng/mL Optimal: > or = 30 ng/mL For 25-OH Vitamin D testing on patients on D2-supplementation and patients for whom quantitation of D2 and D3 fractions is required, the QuestTaskforceureD(TM) 25-OH VIT D, (D2,D3), LC/MS/MS is recommended: order code 47008 (patients >2yrs). See Note 1 Note 1 For additional information, please refer to http://education.[employer]/faq/SUB838 (This link is being provided for informational/ educational purposes only.) No Panel Informationon 01-07 Interpretation and review of laboratory results Abnormal [facility] Performing Organization Information Site ID: QPT Name: [facility] Address: [address] [place] [address], [address] [place] [id number] Director: Maninder Alves MD [facility] Vital Signs Date Time Vital Sign Value Performing Clinician Facility 11-03-2024 11:14-0500 Body height 182.9 cm Abraham Pimentel MD Work Phone: [facility] 11-03-2024 11:14-0500 Body mass index (BMI) [Ratio] 33.91 kg/m2 Abraham Pmientel MD Work Phone: [facility] 11-03-2024 11:14-0500 Body temperature 97.2 [degF] Abraham Pimentel MD Work Phone: [facility] 11-03-2024 11:14-0500 Body weight 113.4 kg Abraham Pimentel MD Work Phone: [facility] 11-03-2024 11:14-0500 Diastolic blood pressure 74 mm[Hg] Abraham Pimentel MD Work Phone: [facility] 11-03-2024 11:14-0500 Heart rate 63 /min Abraham Pimentel MD Work Phone: [facility] 11-03-2024 11:14-0500 SaO2% (BldA) [Mass fraction] 97 % Abraham Pimentel MD Work Phone: [facility] 11-03-2024 11:14-0500 Systolic blood pressure 116 mm[Hg] Abraham Pimentel MD Work Phone: [facility] 08-29-2024 13:01-0400 Diastolic blood pressure 60 mm[Hg] Marlene Moyer NP Work Phone: [facility] 08-29-2024 13:01-0400 Systolic blood pressure 102 mm[Hg] Marlene Moyer GLAZE SUPERVISOR Work Phone: [facility] 08-29-2024 12:38-0400 Body height 182.9 cm Marlene Moyer NP Work Phone: [facility] 08-29-2024 12:38-0400 Heart rate 75 /min Marlene Moyer GLAZE SUPERVISOR Work Phone: [facility] 08-29-2024 12:38-0400 SaO2% (BldA) [Mass fraction] 96 % Marlene Moyer GLAZE SUPERVISOR Work Phone: [facility] 04-07-2024 10:32-0400 Diastolic blood pressure 66 mm[Hg] Abraham Pimentel MD Work Phone: [facility] 04-07-2024 10:32-0400 Heart rate 64 /min Abraham Pimentel MD Work Phone: [facility] 04-07-2024 10:32-0400 Systolic blood pressure 98 mm[Hg] Abraham Pimentel MD Work Phone: [facility] 04-07-2024 10:31-0400 Body height 182.9 cm Abraham Pimentel MD Work Phone: [facility] 04-07-2024 10:31-0400 Body mass index (BMI) [Ratio] 33.91 kg/m2 Abraham Pimentel MD Work Phone: [facility] 04-07-2024 10:31-0400 Body weight 113.4 kg Abraham Pimentel MD Work Phone: [facility] Comment on above: per patient 03-24-2024 09:09-0400 Body height 182.9 cm Abraham Pimentel MD Work Phone: [facility] 03-24-2024 09:09-0400 Body mass index (BMI) [Ratio] 31.19 kg/m2 Abraham Pimentel MD Work Phone: [facility] 03-24-2024 09:09-0400 Body weight 104.33 kg Abraham Pimentel MD Work Phone: [facility] 03-24-2024 09:09-0400 Diastolic blood pressure 70 mm[Hg] Abraham Pimentel MD Work Phone: [facility] 03-24-2024 09:09-0400 Heart rate 67 /min Abraham Pimentel MD Work Phone: [facility] 03-24-2024 09:09-0400 Systolic blood pressure 122 mm[Hg] Abraham Pimentel MD Work Phone: [facility] 01-06-2024 13:04-0500 Body height 182.9 cm Marlene Moyer GLAZE SUPERVISOR Work Phone: [facility] 01-06-2024 13:04-0500 Diastolic blood pressure 80 mm[Hg] Marlene Moyer GLAZE SUPERVISOR Work Phone: [facility] 01-06-2024 13:04-0500 Heart rate 71 /min Marlene Moyer GLAZE SUPERVISOR Work Phone: [facility] 01-06-2024 13:04-0500 SaO2% (BldA) [Mass fraction] 93 % Marlene Moyer GLAZE SUPERVISOR Work Phone: [facility] 01-06-2024 13:04-0500 Systolic blood pressure 118 mm[Hg] Marlene Moyer GLAZE SUPERVISOR Work Phone: [facility] Healthcare Encounters Encounter Date Encounter Type Care Provider Facility Start: 01-04-2025 End: 01-05-2025 Refill Marlene Moyer GLAZE SUPERVISOR Work Phone: [facility] Comment on above: Iron deficiency anem ia due to dietary causes Start: 01-02-2025 End: 01-02-2025 Telephone encounter Gayathri Palumbo [facility] Start: 11-22-2024 End: 11-22-2024 Refill Chanelle Fernandez RN Work Phone: [facility] Comment on above: Acute bilateral veno us stasis dermatitis; Gastroesophageal reflux disease, unspecified whether esophagitis present Start: 11-18-2024 End: 11-21-2024 Refill Chanelle Fernandez RN Work Phone: [facility] Comment on above: Hypokalemia Start: 11-17-2024 End: 11-17-2024 Refill Kerri G Mimi DO Work Phone: [facility] Comment on above: Primary hypertension (CMS/HCC) Start: 11-03-2024 End: 11-03-2024 Office outpatient visit 25 minutes Abraham Pimentel MD Work Phone: [facility] Comment on above: Critical limb ischem ia of right lower extremity with gangrene (CMS-HCC) (Primary Dx) Start: 08-30-2024 End: 08-30-2024 Orders Only Marlene João GLAZE SUPERVISOR Work Phone: [facility] Comment on above: Hypokalemia Start: 08-29-2024 End: 08-29-2024 Bamboo flowsheet Marlenewilfred Moyer GLAZE SUPERVISOR Work Phone: [facility] Start: 08-29-2024 End: 08-29-2024 Bamboo flowsheet Marlene João GLAZE SUPERVISOR Work Phone: [facility] Start: 08-29-2024 End: 08-29-2024 Office outpatient visit 25 minutes Marlene João GLAZE SUPERVISOR Work Phone: [facility] Comment on above: Hypokalemia (Primary Dx); Primary hypertension (CMS/HCC); 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; 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); Encounter for immunization; Venous ulcer-leg syndrome, bilateral (CMS/HCC) Start: 08-29-2024 End: 08-29-2024 ambulatory MARLENE JOÃO Not Available Start: 04-18-2024 End: 04-18-2024 Orders Only Wallace Calzada [facility] Comment on above: Critical limb ischem ia of right lower extremity with gangrene (CMS-HCC) (Primary Dx) Start: 04-07-2024 End: 04-07-2024 Office outpatient visit 15 minutes Abraham Pimentel MD Work Phone: [facility] Comment on above: Venous ulcer-leg syn drome, bilateral (CMS-HCC) (Primary Dx); Critical 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 (CMS-HCC) Start: 03-24-2024 End: 03-24-2024 Office outpatient visit 25 minutes Abraham Pimentel MD Work Phone: [facility] Comment on above: Venous ulcer-leg syn drome, bilateral ([facility]) (Primary Dx); Critical 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 ([facility]) Start: 03-17-2024 End: 03-17-2024 Orders Only Meg Yin [facility] Comment on above: PAD (peripheral denise ry disease) ([facility]) (Primary Dx) Start: 03-10-2024 End: 03-10-2024 Orders Only Wallace Calzada C[facility] Comment on above: Varicose veins of tuan th lower extremities with pain (Primary Dx) Start: 02-25-2024 End: 02-25-2024 Office outpatient new 45 minutes Abraham Pimentel MD Work Phone: [facility] Comment on above: Venous ulcer-leg syn drome, bilateral ([facility]) (Primary Dx); 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 complications Start: 02-23-2024 End: 02-23-2024 ambulatory [facility] Comment on above: EMMA (obstructive sle ep apnea) (Primary Dx) Start: 02-04-2024 Telephone encounter Yessi Mitchell MA [facility] Start: 01-21-2024 Telephone encounter Hannah díaz 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; EMMA treated with BiPAP; Primary hypertension ([facility]); Non-pressure chronic ulcer of other part of [...] Not Available Start: 01-01-2024 Telephone encounter Marlene Galewily pierre NP Work Phone: [facility] Start: 04-07-2023 End: 04-08-2023 [facility] Start: 03-16-2023 End: 03-17-2023 ambulatory [address] D [facility] Facility:H1 Start: 02-13-2023 End: 02-14-2023 ambulatory SILVANA D [facility] Facility:H1 Start: 01-12-2023 End: 01-13-2023 ambulatory PETER D [facility] Facility:H1 Start: 01-01-2023 End: 01-02-2023 ambulatory TATO CELIA Facility:H1 Start: 12-22-2022 End: 12-23-2022 ambulatory PETER [...] Start: 05-05-2022 End: 05-06-2022 ambulatory [address]ER D [facility] Facility:H1 Procedures Date Procedure Procedure Detail Performing Clinician Start: 01-06-2024 Complete blood count with white cell differential, automated Marlene Moyer NP Work Phone: Start: 01-06-2024 End: 01-06-2024 Comprehensive metabolic panel Marlene Moyer NP Work Phone: Start: 01-06-2024 TSH W/REFLEX TO FT4 Praneeth Moyer GLAZE SUPERVISOR Work Phone: Start: 06-08-2023 H/O: colostomy Colostomy status Cassandra Moyer NP Work Phone: H/O: colostomy 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) Marlene Moyer GLAZE SUPERVISOR Work Phone: Plan of Treatment Date Care Activity Detail Author Start: 11-03-2025 Tobacco Screening Tobacco Screening [facility] Start: 04-20-2025 End: 04-20-2025 Patient encounter procedure [facility] Start: 04-07-2025 Adult BMI Screening Adult BMI Screen ing [facility] Start: 04-07-2025 Tobacco Screening Tobacco Screening [facility] Start: 03-24-2025 Adult BMI Screening Adult BMI Screen ing [facility] Start: 03-24-2025 Tobacco Screening Tobacco Screening [facility] Start: 02-28-2025 Adult BMI Screening Adult BMI Screen ing [facility] Start: 02-28-2025 Tobacco Screening Tobacco Screening [facility] Start: 02-21-2025 End: 02-21-2025 Patient encounter procedure 02/21/2025 1:00 PM EDT Office Visit [facility] [address] [place] [address] Marlene Moyer NP [address] [place] [address] [facility] Start: 10-15-2024 Tobacco Screening Tobacco Screening [facility] Start: 08-30-2024 End: 08-30-2025 Basic metabolic 1998 panel - Serum or Plasma Basic metabolic panel Lab Routine Hypokalemia Expected: 08/30/2024 (Approximate), Expires: 08/30/2025 [facility] Work Phone: Comment on above: Expected: 08/30/2024 (Approximate), Expires: 08/30/2025 Start: 08-29-2024 End: 08-29-2025 Comprehensive metabolic 2000 panel - Serum or Plasma Comprehensive metabolic panel Lab Routine Hypokalemia Primary hypertension (CMS/HCC) Expected: 08/29/2024 (Approximate), Expires: 08/29/2025 [facility] Work Phone: Comment on above: Expected: 08/29/2024 (Approximate), Expires: 08/29/2025 Start: 08-29-2024 End: 08-29-2024 Patient encounter procedure 08/29/2024 1:00 PM EDT Office Visit [facility] [address] [place] [address] Marlene Moyer NP [address] [place], [place] [id number] Arrived [facility] Comment on above: Arrived Start: 07-31-2024 Influenza vaccination N [facility] Start: 04-07-2024 End: 04-07-2024 Patient encounter procedure 04/07/2024 10:50 AM EDT Office Visit [facility] [address] [place] [address] Abraham Pimentel MD [address], [address] [address] [facility] Start: 04-06-2024 End: 04-06-2024 Patient encounter procedure 04/06/2024 11:30 AM EDT Office Visit [facility] [address] [place] [address] Pilar Merritt, REMELT PAN TANK OPERATOR-GRAIN MIXER [address] [place], [place] [id number] [facility] Start: 03-24-2024 End: 03-24-2024 Patient encounter procedure 03/24/2024 8:40 AM EDT Office Visit [facility] [address] [place] [address] Abraham Pimentel MD [address], [address] [address] [facility] Start: 03-17-2024 End: 03-17-2025 US.doppler Extremity arteries - bilateral for physiologic artery study Vas art doppler lwr bilat mult lev/PVR Vascular Ultrasound Routine PAD (peripheral artery disease) ([facility]) Expected: 03/17/2024, Expires: 03/17/2025 [employer] Work Phone: Comment on above: Expected: 03/17/2024 , Expires: 03/17/2025 Start: 03-10-2024 End: 03-10-2025 US.doppler Lower extremity vein - bilateral Vas venous duplex insufficiency lwr bi Vascular Ultrasound Routine Varicose veins of both lower extremities with pain Expected: 03/10/2024, Expires: 03/10/2025 [employer] Work Phone: Comment on above: Expected: 03/10/2024 , Expires: 03/10/2025 Start: 03-01-2024 End: 08-27-2025 US.doppler Lower extremity vein - bilateral Vas venous duplex insufficiency lwr bi Vascular Ultrasound Routine Venous ulcer-leg syndrome, bilateral ([facility]) 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 complications Expected: 03/01/2024 (Approximate), Expires: 08/27/2025 [employer] Work Phone: Comment on above: Expected: 03/01/2024 (Approximate), Expires: 08/27/2025 Start: 02-26-2024 Medicare Annual Well ness (AWV) Medicare Annual Wellness (AWV) [facility] Start: 02-25-2024 End: 02-25-2024 Patient encounter procedure 02/25/2024 1:30 PM EDT Office Visit [facility] [address] [place] [address] Abraham Pimentel MD [address], [address] [place] [address] [facility] Start: 02-23-2024 End: 02-23-2024 Patient encounter procedure 02/23/2024 1:00 PM EDT Office Visit [facility] [address] [place] [address] Marlene Moyer NP [address], [place] [phone] [facility] Start: 02-11-2024 End: 02-11-2024 Patient encounter procedure 02/11/2024 2:50 PM EDT Office Visit [facility] [address] [place] [address] Abraham Pimentel MD [address], [address] [place] [address] [facility] Start: 07-31-2023 COVID-19 Vaccine ( season) COVID-19 Vaccine ( season) [facility] Start: 07-17-2023 Adult BMI Screening Adult BMI Screen ing [facility] Start: 2012 Fall Risk Screening Fall Risk Screen ing [facility] Start: 1966 DTaP,Tdap and Td Vaccines (1 - Tdap) DTaP,Tdap and Td Vaccines ( - Tdap) [facility] Start: 1965 Adult BMI Follow Up Plan Adult BMI Follow Up Plan [facility] Start: 1959 Depression Screening Depression Scre ening [facility] Start: 1947 Medicare Annual Well ness Visit Medicare Annual Wellness Visit [facility] Immunizations Immunization Date Immunization Notes Care Provider Fa cility 08-29-2024 influenza, high dose seasonal, preservative-free Marlene Kampfer GLAZE SUPERVISOR Work Phone: [facility] 08-29-2024 SARS-COV-2 (COVID-19 ) vaccine, mRNA, spike protein, LNP, PF, jak-sucrose, 30 mcg/0.3 mL Marlene Kampfer GLAZE SUPERVISOR Work Phone: [facility] 08-28-2023 zoster vaccine recombinant Marlene Kampfer GLAZE SUPERVISOR Work Phone: [facility] 08-26-2023 Influenza, High-dose Seasonal, Quadrivalent, Preservative Free Marlene Kampfer GLAZE SUPERVISOR Work Phone: [facility] 08-26-2023 influenza virus vaccine, unspecified formulation Wallace Calzada [facility] 08-27-2022 Influenza, High-dose Seasonal, Quadrivalent, Preservative Free Marlene Kampfer GLAZE SUPERVISOR Work Phone: [facility] 08-27-2021 Influenza, High-dose Seasonal, Quadrivalent, Preservative Free Marlene Kampfer GLAZE SUPERVISOR Work Phone: [facility] 02-06-2021 COVID-19 Vaccine, vector-nr, [id number], PF, 0.5mL [facility] 11-22-2020 influenza, injectabl e, quadrivalent, contains preservative Marlene Kampfer GLAZE SUPERVISOR Work Phone: [facility] 09-26-2019 Influenza, High-dose Seasonal, Quadrivalent, Preservative Free Marlene Kampfer GLAZE SUPERVISOR Work Phone: [facility] 09-06-2018 Influenza, High-dose Seasonal, Quadrivalent, Preservative Free Marlene Kampfer GLAZE SUPERVISOR Work Phone: [facility] Work Phone: 09-21-2017 Influenza, High-dose Seasonal, Quadrivalent, Preservative Free Marlene Kampfer GLAZE SUPERVISOR Work Phone: [facility] 09-15-2016 Influenza, High-dose Seasonal, Quadrivalent, Preservative Free Marlene Kampfer GLAZE SUPERVISOR Work Phone: [facility] 05-01-2016 pneumococcal polysaccharide vaccine, 23 valent Marlene Moyer GLAZE SUPERVISOR Work Phone: [facility] 09-10-2015 pneumococcal conjuga te vaccine, 13 valent Marlene Moyer GLAZE SUPERVISOR Work Phone: [facility] 11-30-2005 pneumococcal polysaccharide vaccine, 23 valent Marlene Galewilygabby GLAZE SUPERVISOR Work Phone: [facility] Healthcare Payers Date Payer Category Payer Medicare (Managed Care) [facility] Member Subscriber Plan / Payer (Effective 2018-Present) Name: Kj Mora Relation to Subscriber: Self Name: Kj Mora Payer ID: Not on file Group ID: [id number] Type: Not on file Address: [address] [place] [id number] 2017 Medicare [id number] 2017 Medicare HMO [employer] MEDICARE [id number] 1959 Unknown [id number] 1947 Unknown [id number] 2.16.840.1.034599.3.579 .2.593 1947 Unknown [id number] 2.16.840.1.213078.3.579 .2.593 1947 Unknown [id number] 2.16.840.1.387445.3.579 .2.593 1947 Unknown [id number] 2.16.840.1.093473.3.579 .2.593 1947 Unknown [id number] 2.16.840.1.544394.3.579 .2.59 1947 Unknown [id number] 2.16.840.1.847105.3.579 .2.59 1947 Unknown [id number] 2.16.840.1.449015.3.579 .2.59 1947 Unknown [id number] 2.16.840.1.399010.3.579 .2.59 1947 Unknown [id number] 2.16.840.1.867441.3.579 .2.59 1947 Unknown [id number] 2.16.840.1.585479.3.579 .2.3 1947 Unknown [id number] 2.16.840.1.417178.3.579 .2.593 1947 Unknown [id number] 2.16.840.1.462176.3.579 .2.593 1947 Unknown [id number] 2.16.840.1.387452.3.579 .2.593 1947 Unknown [id number] 2.16.840.1.777678.3.579 .2.593 1947 Unknown [id number] 2.16.840.1.983065.3.579 .2.59 1947 Unknown [id number] 2.16.840.1.170754.3.579 .2.593 1947 Unknown [id number] 2.16.840.1.164747.3.579 .2.1259 1947 Unknown [id number] 2.16.840.1.070936.3.579 .2.1259 1947 Unknown [id number] 2.16.840.1.432442.3.579 .2.1259 Social History Date Type Detail Facility Start: 08-26-2023 End: 02-29-2024 Tobacco smoking status NHIS Never smoked tobacco [facility] Start: 08-26-2023 End: 02-29-2024 Tobacco use and exposure Smokeless tobacco non-user [facility] Start: 12-21-2023 End: 08-29-2024 Alcohol intake Ex-drinker (finding) [facility] Start: 12-10-2020 End: 08-26-2023 History of Social function [facility] Start: 12-10-2020 End: 08-26-2023 Tobacco use panel [facility] Start: [...] more. DK or Refused [facility] Start: 02-29-2024 End: 11-03-2024 Alcoholic beverage intake Current drinker of alcohol (finding) [facility] Start: 11-03-2016 Alcohol Comment occasionally [facility] Start: 07-05-2015 Sex Male (finding) [facility] Goals Date Patient Goal Desired Activity /State Personal health goal Comment on above: Formatting of this n ote might be different from the original. Evaluation of progress towards goal: Safe dc transition from hospital to home with resumption of HHC. Clinical Notes 05-27-2022 to 01-02-2025 Telephone Encounter - Gayathri Palumbo - 01/02/2025 4:08 PM ESTTelephone Encounter - Gayathri Palumbo - 01/02/2025 4:08 PM Romel Pimentel MD - 11/03/2024 11:00 AM EST Note Date & Type Note Facility 01-02-2025 Miscellaneous Notes Me and Agustin have been in contact these last 2 months regarding his bka with Dr Pimentel-pt has been unsure whether he wants to proceed. He is going to Wound Care on Thu and will call me after his appointment. documented in this encounter [facility] 01-02-2025 Telephone encounter Note Me and Agustin have been in contact these last 2 months regarding his bka with Dr Pimentel-pt has been unsure whether he wants to proceed. He is going to Wound Care on Thu and will call me after his appointment. [facility] 11-03-2024 Evaluation + Plan note Associated Problem(s): Critical 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 (CMS-HCC) Right below-knee amputation. We had a long [...] the wound has been there for years. 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 We had a long [...] there for years. documented in this encounter [facility] 11-03-2024 History of Present illness Narrative Images from the original note were not included. To: KERRI LE, DO HPI: Kj Mora is a 79 y.o. [...] Diagnosis Date Anemia Chronic hypercapnic respiratory failure ([facility]) COPD (chronic obstructive pulmonary disease) ([facility]) Depression Disease of lung HTN (hypertension) Obesity EMMA (obstructive sleep apnea) Paraplegia ([facility]) Past Surgical History: Past Surgical History: Procedure [...] Resource Strain: Patient Declined (01/01/2024) [facility] from [facility] Overall Financial Resource Strain (CARDIA) Difficulty of Paying Living Expenses: Patient declined Food Insecurity: No Food Insecurity (11/03/2024) Hunger Screening Food Insecurity - Worry: Never True Food Insecurity - Inability: Never True Transportation Needs: Patient Declined (01/01/2024) Received from [facility] - Transportation Lack of Transportation (Medical): Patient declined Lack of Transportation (Non-Medical): Patient declined Physical Activity: Patient Declined (01/01/2024) Received from [facility] Exercise Vital Sign Days of Exercise per Week: Patient declined Minutes of Exercise per Session: Patient declined Stress: Patient Declined (01/01/2024) [facility] [place] [facility] - Occupational Stress Questionnaire Feeling of Stress : Patient declined Social Connections: Unknown (01/01/2024) Received from [facility] Social Connection and Isolation Panel [NHANES] Frequency of Communication with Friends and Family: More than three times a week Frequency of Social Gatherings with Friends and Family: Patient declined Attends [employer]ist Services: Not on file Active Member of Clubs or Organizations: Patient declined Attends Club or Organization Meetings: Patient declined Marital Status: Interpersonal Safety: Patient Declined (01/01/2024) Received from [facility] Humiliation, Afraid, Rape, and Kick questionnaire Fear of Current or Ex-Partner: Patient declined Emotionally Abused: Patient declined Physically Abused: Patient declined Sexually Abused: Patient declined Housing Instability: Unknown (01/01/2024) Received from [facility] Housing Stability Vital Sign Unable to Pay [...] ischemia of right lower extremity with gangrene ([facility]) - Primary Overview PVR, I ordered, will be done at the 7th, will see him after and decide further plans. Continue wound care. Agustin was seen today for non-healing wound from wound care. 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 While intending to generate a timely document that accurately reflects the content of the visit, no guarantee can be provided that every grammatical or spelling mistake has been or will be identified or corrected. Thank you for your understanding. documented in this encounter [facility] 08-29-2024 History of Present illness Narrative Images from the original note were not included. Kj Mora is a 79 y.o. male presents with chief complaint of Hypertension HPI: HPI Presents to the office for 6 month follow-up. Needs refills of potassium chloride, ferrous sulfate, and citalopram refilled. Followed by wound care for chronic wounds to lower extremity, he is wondering if he should discuss getting foot amputated since having such a hard time with wound healing. Has not followed up with dermatology but plans to. SUBJECTIVE: MEDICATIONS: Current Outpatient Medications Medication Instructions amLODIPine (NORVASC) 5 mg, Oral, Daily ascorbic acid (Vitamin C) 250 MG chewable tablet Every 24 hours aspirin 81 MG EC tablet Every 24 hours carvedilol (COREG) 6.25 mg, Oral, 2 times daily citalopram (CELEXA) 40 mg, Oral, Daily ferrous sulfate (FeroSul) 325 (65 Fe) MG tablet TAKE ONE TABLET BY MOUTH DAILY furosemide (LASIX) 40 mg, Oral, Daily ibuprofen 200 MG tablet 1 tablet with food or milk as needed Orally pt taking daily L-lysine 1000 MG tablet Oral Multiple Vitamin (MULTIVITAMIN ADULT PO) Every 24 hours omeprazole (PriLOSEC) [address] capsule TAKE 1 CAPSULE BY MOUTH DAILY 30 MINUTES BEFORE MORNING MEAL potassium chloride CR (K-Tab) 20 MEQ ER tablet TAKE ONE TABLET BY MOUTH DAILY WITH FOOD rosuvastatin (Crestor) 10 MG tablet Every 24 hours zinc gluconate 50 MG tablet Every 24 hours REVIEW OF SYMPTOMS: Review of Systems OBJECTIVE: Visit Vitals BP 90/52 (BP Location: Left arm, Patient Position: Sitting, BP Cuff Size: Large adult) Pulse 75 Ht 6' SpO2 96% BMI 33.91 kg/m Smoking Status Never BSA 2.4 m Physical Exam Vitals reviewed. HENT: Head: Normocephalic and atraumatic. Nose: Nose normal. Mouth/Throat: Mouth: Mucous membranes are moist. Eyes: Pupils: Pupils are equal, round, and reactive to light. Cardiovascular: Rate and Rhythm: Normal rate and regular rhythm. Pulses: Normal pulses. Heart sounds: Normal heart sounds. Abdominal: General: There is no distension. Palpations: Abdomen is soft. Tenderness: There is no abdominal tenderness. Musculoskeletal: General: Injury: chronic lower extremity ulcers. Cervical back: Normal range of motion and neck supple. Right lower leg: Edema present. Left lower leg: Edema present. Skin: General: Skin is warm. Findings: Lesion: irregularly shaped ulcer on lower lip, chronic lower extremity wounds. Neurological: Mental Status: He is alert and oriented to person, place, and time. Mental status is at baseline. Motor: Weakness (bilateral lower extremity weakness) present. Coordination: Coordination abnormal. Comments: Wheelchair dependent Psychiatric: Mood and Affect: Mood normal. Behavior: Behavior normal. Judgment: Judgment normal. ASSESSMENT AND PLAN: Assessment/Plan Diagnoses and all orders for this visit: Hypokalemia - Comprehensive metabolic panel; Future - potassium chloride CR (K-Tab) 20 MEQ ER tablet; Take 1 tablet (20 mEq) by mouth Daily with food Check labs Primary hypertension (CMS/HCC) - Comprehensive metabolic panel; Future -Running on the lower end. Stop amlodipine. 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 Reviewed importance of healthy diet and exercise, stress management, and social support. Encounter for immunization - Flu vaccine, high dose seasonal, PF ([id number]) (Fluzone High Dose) - COVID-19, MRNA, LNP-S, PF, JAK-SUCROSE, 30MCG/0.3ML CVX 309 [[id number]], Comirnaty Venous ulcer-leg syndrome, bilateral (CMS/HCC) -Followed by vascular and wound care documented in this encounter [facility] 04-07-2024 History of Present illness Narrative Images from the original note were not included. To: KERRI LE, HPI: Kj Mora is a 78 y.o. male with Bilateral lower extremity venous ulcers and right toe ulcers that are nonhealing. He is status post injection sclerotherapy. He has been up with any follow-up with our wound clinic here at [place]. He is doing well. His PVR is normal. He has some small vessel disease. Review of Systems: Review of Systems Constitutional: Negative. HENT: Negative. Respiratory: Negative. Cardiovascular: Negative. Gastrointestinal: Negative. Endocrine: Negative. Genitourinary: Negative. Musculoskeletal: Negative. Skin: Negative. Neurological: Negative. Hematological: Negative. Medications: Current Outpatient Medications on File Prior to Visit Medication Sig Dispense Refill amLODIPine (NORVASC) 5 mg tablet Take 1 tablet (5 mg total) by mouth in the morning. ascorbic acid (VITAMIN C) 500 mg tablet Take 1 tablet (500 mg total) by mouth in the morning. atorvastatin (LIPITOR) 20 mg tablet Take 1 tablet (20 mg total) by mouth in the morning and 1 tablet (20 mg total) before bedtime. carvedilol (COREG) 6.25 mg tablet Take 1 [...] mg total) by mouth in the morning. No current facility-administered medications on file prior to visit. Past Medical History: Past Medical History: Diagnosis Date Anemia Chronic hypercapnic respiratory failure ([facility]) COPD (chronic obstructive pulmonary disease) ([facility]) Depression Disease of lung HTN (hypertension) Obesity EMMA (obstructive sleep apnea) Paraplegia ([facility]) Past Surgical History: Past Surgical History: Procedure [...] Social Determinants of Health Financial Resource Strain: Patient Declined (01/01/2024) [facility] from [facility] Overall Financial Resource Strain (CARDIA) Difficulty of Paying Living Expenses: Patient declined Food Insecurity: No Food Insecurity (03/24/2024) Hunger Screening Food Insecurity - Worry: Never True Food Insecurity - Inability: Never True Transportation Needs: Patient Declined (01/01/2024) Received from [facility] - Transportation Lack of Transportation (Medical): Patient declined Lack of Transportation (Non-Medical): Patient declined Physical Activity: Patient Declined (01/01/2024) [facility] Exercise Vital Sign Days of Exercise per Week: Patient declined Minutes of Exercise per Session: Patient declined Stress: Patient Declined (01/01/2024) [facility] - Occupational Stress Questionnaire Feeling of Stress : Patient declined Social Connections: Unknown (01/01/2024) Received from [facility] Social Connection and Isolation Panel [NHANES] Frequency of Communication with Friends and Family: More than three times a week Frequency of Social Gatherings with Friends and Family: Patient declined Attends Adventist Services: Not on file Active Member of Clubs or Organizations: Patient declined Attends Club or Organization Meetings: Patient declined Marital Status: Interpersonal Safety: Patient Declined (01/01/2024) Received from [facility] Humiliation, Afraid, Rape, and Kick questionnaire Fear of Current or Ex-Partner: Patient declined Emotionally Abused: Patient declined Physically Abused: Patient declined Sexually Abused: Patient declined Housing Instability: Unknown (01/01/2024) Received from [facility] Housing Stability Vital Sign Unable to Pay for Housing in the Last Year: Patient refused Number of Places Lived in the Last Year: Not on file In the last 12 months, was there a time when you did not have a steady place to sleep or slept in a fdc (including now)?: Patient refused Family History Problem Relation Age of Onset Cancer Mother COPD Father Recent Labs: Recent and relative labs were reviewed and interpreted and contributed to the assessment and plan below. Vitals: BP 98/66 (BP Site: Right Arm, BP Postition: Sitting, BP CUFF SIZE: L (13-17 inches)) Pulse 64 Ht 182.9 cm (6') Wt 113.4 kg (250 lb) Comment: per patient BMI 33.91 kg/m Body mass index is [...] content normal. Judgment: Judgment normal. Recent testing: PVR Assessment and Plan: Problem List Venous ulcer-leg syndrome, bilateral (CMS-HCC) - Primary Critical 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 (CMS-HCC) Overview PVR, I ordered, will be done at the 7th, will see him after and decide further plans. Continue wound care. Current Assessment & Plan His ABIs are normal. He has normal PVR waveforms. He has abnormal digital waveforms. Discussed with him that this is a sign of small vessel disease for which best medical therapy and hyperbaric therapy are the best option. Agustin was seen today for wound check. Diagnoses and all orders for this visit: Venous ulcer-leg syndrome, bilateral (CMS-HCC) Critical 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 (CMS-HCC) Abraham Pimentel MD, SUSIE, RPVI, FSVS, FACS [facility] This note was created with the assistance of a speech recognition program. While intending to generate a timely document that accurately reflects the content of the visit, no guarantee can be provided that every grammatical or spelling mistake has been or will be identified or corrected. Thank you for your understanding. documented in this encounter [facility] 04-07-2024 Evaluation + Plan note Associated Problem(s): Critical 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 (CMS-HCC) His ABIs are normal. He has normal PVR waveforms. He has abnormal digital waveforms. Discussed with him that this is a sign of small vessel disease for which best medical therapy and hyperbaric therapy are the best option. 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 He has normal PVR waveforms. He has abnormal digital waveforms. Discussed with him that this is a sign of small vessel disease for which best medical therapy and hyperbaric therapy are the best option. documented in this encounter [facility] 03-24-2024 Evaluation + Plan note Associated Problem(s): Venous ulcer-leg syndrome, bilateral (CMS-HCC) He is status post injection sclerotherapy. Continue Unna boot and wound care. We will get PVR as well to make sure he has enough arterial below to heal this wound and the right great toe wound as well. [facility] 03-24-2024 Miscellaneous Notes Associated Problem(s): Venous ulcer-leg syndrome, bilateral (CMS-HCC) He is status post injection sclerotherapy. Continue Unna boot and wound care. We will get PVR as well to make sure he has enough arterial below to heal this wound and the right great toe wound as well. Associated Problem(s): Critical 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 (CMS-HCC) PVR, I ordered, will be done at the 7th, will see him after and decide further plans. Continue wound care. documented in this encounter [facility] 03-24-2024 Evaluation + Plan note Associated Problem(s): Critical 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 (CMS-HCC) PVR, I ordered, will be done at the 7th, will see him after and decide further plans. Continue wound care. T [facility] 03-24-2024 History of Present illness Narrative Images from the original note were not included. To: KERRI LE, HPI: Kj Mora is a 78 y.o. male with Bilateral lower extremity venous ulcers and right toe ulcers that are nonhealing. He is status post injection sclerotherapy. He has been up with any follow-up with our wound clinic here at [place]. He is doing well. He has pending PVR that I ordered. It was not done yet.Continue statin and aspirin. Review of Systems: Review of Systems Constitutional: Negative. HENT: Negative. Respiratory: Negative. Cardiovascular: Negative. Gastrointestinal: Negative. Endocrine: Negative. Genitourinary: Negative. Musculoskeletal: Negative. Skin: Negative. Neurological: Negative. Hematological: Negative. Medications: Current Outpatient Medications on File Prior to Visit Medication Sig Dispense Refill amLODIPine (NORVASC) 5 mg tablet Take 1 tablet (5 mg total) by mouth in the morning. ascorbic acid (VITAMIN C) 500 mg tablet Take 1 tablet (500 mg total) by mouth in the morning. atorvastatin (LIPITOR) 20 mg tablet Take 1 tablet (20 mg total) by mouth in the morning and 1 tablet (20 mg total) before bedtime. carvedilol (COREG) 6.25 mg tablet Take 1 [...] mg total) by mouth in the morning. No current facility-administered medications on file prior to visit. Past Medical History: Past Medical History: Diagnosis Date Anemia Chronic hypercapnic respiratory failure ([facility]) COPD (chronic obstructive pulmonary disease) ([facility]) Depression Disease of lung HTN (hypertension) Obesity EMMA (obstructive sleep apnea) Paraplegia ([facility]) Past Surgical History: Past Surgical History: Procedure [...] Social Determinants of Health Financial Resource Strain: Patient Declined (01/01/2024) Received from [facility] Overall Financial Resource Strain (CARDIA) Difficulty of Paying Living Expenses: Patient declined Food Insecurity: No Food Insecurity (03/24/2024) Hunger Screening Food Insecurity - Worry: Never True Food Insecurity - Inability: Never True Transportation Needs: Patient Declined (01/01/2024) Received from [facility] - Transportation Lack of Transportation (Medical): Patient declined Lack of Transportation (Non-Medical): Patient declined Physical Activity: Patient Declined (01/01/2024) Received from [facility] Exercise Vital Sign Days of Exercise per Week: Patient declined Minutes of Exercise per Session: Patient declined Stress: Patient Declined (01/01/2024) Received from [facility] [place] [facility] - Occupational Stress Questionnaire Feeling of Stress : Patient declined Social Connections: Unknown (01/01/2024) Received from [facility] Social Connection and Isolation Panel [NHANES] Frequency of Communication with Friends and Family: More than three times a week Frequency of Social Gatherings with Friends and Family: Patient declined Attends Adventist Services: Not on file Active Member of Clubs or Organizations: Patient declined Attends Club or Organization Meetings: Patient declined Marital Status: Interpersonal Safety: Patient Declined (01/01/2024) Received from [facility] Humiliation, Afraid, Rape, and Kick questionnaire Fear of Current or Ex-Partner: Patient declined Emotionally Abused: Patient declined Physically Abused: Patient declined Sexually Abused: Patient declined Housing Instability: Unknown (01/01/2024) Received from [facility] Housing Stability Vital Sign Unable to Pay for Housing in the Last Year: Patient refused Number of Places Lived in the Last Year: Not on file In the last 12 months, was there a time when you did not have a steady place to sleep or slept in a fdc (including now)?: Patient refused Family History Problem Relation Age of Onset Cancer Mother COPD Father Recent Labs: Recent and relative labs were reviewed and interpreted and contributed to the assessment and plan below. Vitals: BP 122/70 (BP Site: Left Arm, BP Postition: Sitting, BP CUFF SIZE: L (13-17 inches)) Pulse 67 Ht 182.9 cm (6') Wt 104.3 kg (230 lb) BMI 31.19 kg/m Body mass index is 31.19 kg/m . Physical Exam: Physical Exam Constitutional: [...] Skin: General: Skin is warm and dry. Comments: Unna boot in place over the venous ulcers. Neurological: General: No focal deficit present. Mental Status: He is alert and oriented to person, place, and time. Mental status is at baseline. Psychiatric: Mood and Affect: Mood normal. Behavior: Behavior normal. Thought Content: Thought content normal. Judgment: Judgment normal. Recent testing: Assessment and Plan: Problem List Venous ulcer-leg syndrome, bilateral (CMS-HCC) - Primary Current Assessment & Plan He is status post injection sclerotherapy. Continue Unna boot and wound care. We will get PVR as well to make sure he has enough arterial below to heal this wound and the right great toe wound as well. Critical 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 (CMS-HCC) Overview PVR, I ordered, will be done at the 7th, will see him after and decide further plans. Continue wound care. Current Assessment & Plan PVR, I ordered, will be done at the 7th, will see him after and decide further plans. Continue wound care. Agustin was seen today for post-op. Diagnoses and all orders for this visit: Venous ulcer-leg syndrome, bilateral (CMS-HCC) Critical 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 (CMS-HCC) Abraham Pimentel MD, SUSIE, RPVI, FSVS, FACS [facility] This note was created with the assistance of a speech recognition program. While intending to generate a timely document that accurately reflects the content of the visit, no guarantee can be provided that every grammatical or spelling mistake has been or will be identified or corrected. Thank you for your understanding. documented in this encounter [facility] 02-25-2024 Evaluation + Plan note Associated Problem(s): Venous ulcer-leg syndrome, bilateral (CMS-HCC) Venous reflux ultrasound Bilateral lower extremity ultrasound-guided injection sclerotherapy [facility] 02-25-2024 Miscellaneous Notes Associated Problem(s): Venous ulcer-leg syndrome, bilateral (CMS-HCC) Venous reflux ultrasound Bilateral lower extremity ultrasound-guided injection sclerotherapy documented in this encounter [facility] 02-25-2024 History of Present illness Narrative Images from the original note were not included. [facility] [address] [place] [id number] Subjective: Patient ID: Kj Mora is a [...] right lower extremity Venous ulcer-leg syndrome, bilateral ([facility]) Current Outpatient Medications: amLODIPine (NORVASC) 5 mg [...] Diagnosis Date Anemia Chronic hypercapnic respiratory failure ([facility]) COPD (chronic obstructive pulmonary disease) ([facility]) Depression Disease of lung HTN (hypertension) Obesity EMMA (obstructive sleep apnea) Paraplegia ([facility]) Past Surgical History: Procedure Laterality Date COLOSTOMY [...] for this visit: Venous ulcer-leg syndrome, bilateral ([facility]) Plan Plan: This is 78-year-old gentleman [...] [facility] Surgery documented in this encounter [facility] 02-04-2024 Miscellaneous Notes Received a new patient referral from patient wound care doctor. Called a left a voicemail for the patient to call back to schedule new patient appointment with Dr. Pimentel in [facility] documented in this encounter [facility] 02-04-2024 Telephone encounter Note Received a new patient referral from patient wound care doctor. Called a left a voicemail for the patient to call back to schedule new patient appointment with Dr. Pimentel in [facility] 01-21-2024 Miscellaneous Notes Received copy of denial letter from Radha headley into [employer]. Emailed to Ines at [facility] to clarify as office visit was complete and pt is compliant- unsure if denial is due to elevated AHI? [facility]24 Telephone encounter Note Received copy of denial letter from Shoshana- scanned into manager fiber. Emailed to Ines at [facility] to clarify as office visit was complete and pt is compliant- unsure if denial is due to elevated AHI? [facility] History of Present illness Narrative Kj Mora is a 78 y.o. male presents with chief complaint of Establish Care, Cellulitis, and Follow-up HPI: Patient is here to establish care and to follow-up on cellulitis. He went to wound care yesterday, they gave citalopram. He states he goes to [facility] to check legs pressure and vein flow. [...] by wound center documented in this encounter [facility] 01-01-2024 Telephone encounter Note Ana Valiente has concerns with pt stating that he seems more tired and his edema is more than normal. She would like to have labs ordered. Please call [phone] with orders. [facility] 01-01-2024 Miscellaneous Notes Ana Valiente has concerns with pt stating that he seems more tired and his edema is more than normal. She would like to have labs ordered. Please call [phone] with orders. documented in this encounter [facility] 05-27-2022 Note PROCEDURE: XR FOOT [...] by: ELIEL WORTHINGTON Date: 2022-05-27 07:[address] 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 Iron deficiency anemia secondary to inadequate dietary iron intake 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) Encounter for immunization Venous ulcer-leg syndrome, bilateral (CMS/HCC) documented in this encounter [facility]* Diagnosis 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 Encounter for wellness examination Screening PSA (prostate specific antigen) Special screening for malignant neoplasm of prostate Cauda equina syndrome with neurogenic bladder (CMS/HCC) Cauda equina syndrome with neurogenic bladder Incomplete paraplegia (CMS/HCC) Neuromuscular weakness (CMS/HCC) EMMA treated with BiPAP Obesity hypoventilation syndrome (CMS/HCC) Obesity hypoventilation syndrome Chronic respiratory failure with hypoxia and hypercapnia (CMS/HCC) Chronic restrictive lung disease Other diseases of lung, not elsewhere classified Coronary artery disease involving [place] coronary artery of [place] heart without angina pectoris (CMS/HCC) Primary hypertension (CMS/HCC) Unspecified essential hypertension Venous insufficiency (chronic) (peripheral) Unspecified venous (peripheral) insufficiency Gastroesophageal reflux disease, unspecified whether esophagitis present Neurogenic bladder Neurogenic bladder, NOS Cellulitis of right lower extremity Non-pressure chronic ulcer of left ankle with other specified severity (CMS/HCC) Non-pressure chronic ulcer of left heel and midfoot with unspecified severity (CMS/HCC) Non-pressure chronic ulcer of other part of right foot with other specified severity (CMS/HCC) Osteopenia of multiple sites Other secondary scoliosis, thoracolumbar region Venous stasis ulcer of left lower leg with edema of left lower leg (CMS/HCC) Venous ulcer of lower extremity due to chronic peripheral venous hypertension (HCC) (CMS/HCC) Iron deficiency Disorders of iron metabolism Obesity (BMI 30.0-34.9) Cognitive impairment Unspecified persistent mental disorders due to conditions classified elsewhere Colostomy status (CMS/HCC) Colostomy status Mixed hyperlipidemia (CMS/HCC) Mixed hyperlipidemia Recurrent major depressive disorder, in partial remission (HCC) (CMS/HCC) Neoplasm of uncertain behavior of lower lip, [place]mil[place] border Neoplasm of uncertain behavior of lip, oral cavity, and pharynx Primary hypertension (CMS/HCC) Unspecified essential hypertension documented in this encounter [facility] Healthcare[facility] note* Diagnosis 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 Encounter for wellness examination Screening PSA (prostate specific antigen) Special screening for malignant neoplasm of prostate Cauda equina syndrome with neurogenic bladder (CMS/HCC) Cauda equina syndrome with neurogenic bladder Incomplete paraplegia (CMS/HCC) Neuromuscular weakness (CMS/HCC) EMMA treated with BiPAP Obesity hypoventilation syndrome (CMS/HCC) Obesity hypoventilation syndrome Chronic respiratory failure with hypoxia and hypercapnia (CMS/HCC) Chronic restrictive lung disease Other diseases of lung, not elsewhere classified Coronary artery disease involving [place] coronary artery of [place] heart without angina pectoris (CMS/HCC) Primary hypertension (CMS/HCC) Unspecified essential hypertension Venous insufficiency (chronic) (peripheral) Unspecified venous (peripheral) insufficiency Gastroesophageal reflux disease, unspecified whether esophagitis present Neurogenic bladder Neurogenic bladder, NOS Cellulitis of right lower extremity Non-pressure chronic ulcer of left ankle with other specified severity (CMS/HCC) Non-pressure chronic ulcer of left heel and midfoot with unspecified severity (CMS/HCC) Non-pressure chronic ulcer of other part of right foot with other specified severity (CMS/HCC) Osteopenia of multiple sites Other secondary scoliosis, thoracolumbar region Venous stasis ulcer of left lower leg with edema of left lower leg (CMS/HCC) Venous ulcer of lower extremity due to chronic peripheral venous hypertension (HCC) (CMS/HCC) Iron deficiency Disorders of iron metabolism Obesity (BMI 30.0-34.9) Cognitive impairment Unspecified persistent mental disorders due to conditions classified elsewhere Colostomy status (CMS/HCC) Colostomy status Mixed hyperlipidemia (CMS/HCC) Mixed hyperlipidemia Recurrent major depressive disorder, in partial remission (HCC) (CMS/HCC) Neoplasm of uncertain behavior of lower lip, vermil[place] border Neoplasm of uncertain behavior of lip, oral cavity, and pharynx Hypokalemia Hypopotassemia documented in this encounter [facility] HealthcareEvaluation note* Diagnosis 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 Encounter for wellness examination Screening PSA (prostate specific antigen) Special screening for malignant neoplasm of prostate Cauda equina syndrome with neurogenic bladder (CMS/HCC) Cauda equina syndrome with neurogenic bladder Incomplete paraplegia (CMS/HCC) Neuromuscular weakness (CMS/HCC) EMMA treated with BiPAP Obesity hypoventilation syndrome (CMS/HCC) Obesity hypoventilation syndrome Chronic respiratory failure with hypoxia and hypercapnia (CMS/HCC) Chronic restrictive lung disease Other diseases of lung, not elsewhere classified Coronary artery disease involving [place] coronary artery of [place] heart without angina pectoris (CMS/HCC) Primary hypertension (CMS/HCC) Unspecified essential hypertension Venous insufficiency (chronic) (peripheral) Unspecified venous (peripheral) insufficiency Gastroesophageal reflux disease, unspecified whether esophagitis present Neurogenic bladder Neurogenic bladder, NOS Cellulitis of right lower extremity Non-pressure chronic ulcer of left ankle with other specified severity (CMS/HCC) Non-pressure chronic ulcer of left heel and midfoot with unspecified severity (CMS/HCC) Non-pressure chronic ulcer of other part of right foot with other specified severity (CMS/HCC) Osteopenia of multiple sites Other secondary scoliosis, thoracolumbar region Venous stasis ulcer of left lower leg with edema of left lower leg (CMS/HCC) Venous ulcer of lower extremity due to chronic peripheral venous hypertension (HCC) (CMS/HCC) Iron deficiency Disorders of iron metabolism Obesity (BMI 30.0-34.9) Cognitive impairment Unspecified persistent mental disorders due to conditions classified elsewhere Colostomy status (CMS/HCC) Colostomy status Mixed hyperlipidemia (CMS/HCC) Mixed hyperlipidemia Recurrent major depressive disorder, in partial remission (HCC) (CMS/HCC) Neoplasm of uncertain behavior of lower lip, vermil[place] border Neoplasm of uncertain behavior of lip, oral cavity, and pharynx Acute bilateral venous stasis dermatitis Gastroesophageal reflux disease, unspecified whether esophagitis present documented in this encounter [facility] HealthcareEvaluation note* Diagnosis 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 Encounter for wellness examination Screening PSA (prostate specific antigen) Special screening for malignant neoplasm of prostate Cauda equina syndrome with neurogenic bladder (CMS/HCC) Cauda equina syndrome with neurogenic bladder Incomplete paraplegia (CMS/HCC) Neuromuscular weakness (CMS/HCC) EMMA treated with BiPAP Obesity hypoventilation syndrome (CMS/HCC) Obesity hypoventilation syndrome Chronic respiratory failure with hypoxia and hypercapnia (CMS/HCC) Chronic restrictive lung disease Other diseases of lung, not elsewhere classified Coronary artery disease involving match-e-be-nash-she-wish band coronary artery of match-e-be-n[place]-wish band heart without angina pectoris (CMS/HCC) Primary hypertension (CMS/HCC) Unspecified essential hypertension Venous insufficiency (chronic) (peripheral) Unspecified venous (peripheral) insufficiency Gastroesophageal reflux disease, unspecified whether esophagitis present Neurogenic bladder Neurogenic bladder, NOS Cellulitis of right lower extremity Non-pressure chronic ulcer of left ankle with other specified severity (CMS/HCC) Non-pressure chronic ulcer of left heel and midfoot with unspecified severity (CMS/HCC) Non-pressure chronic ulcer of other part of right foot with other specified severity (CMS/HCC) Osteopenia of multiple sites Other secondary scoliosis, thoracolumbar region Venous stasis ulcer of left lower leg with edema of left lower leg (CMS/HCC) Venous ulcer of lower extremity due to chronic peripheral venous hypertension (HCC) (CMS/HCC) Iron deficiency Disorders of iron metabolism Obesity (BMI 30.0-34.9) Cognitive impairment Unspecified persistent mental disorders due to conditions classified elsewhere Colostomy status (CMS/HCC) Colostomy status Mixed hyperlipidemia (CMS/HCC) Mixed hyperlipidemia Recurrent major depressive disorder, in partial remission (HCC) (CMS/HCC) Neoplasm of uncertain behavior of lower lip, vermilion border Neoplasm of uncertain behavior of lip, oral cavity, and pharynx 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 Iron deficiency anemia secondary to inadequate dietary iron intake documented in this encounter [facility] HealthcareEvaluation note* Diagnosis PAD (peripheral artery disease) (CMS-HCC)- Primary Unspecified peripheral vascular disease [facility]* Diagnosis Venous ulcer-leg syndrome, bilateral (CMS-HCC)- Primary Critical 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 (CMS-HCC) documented in this encounter [facility] System[facility]* Diagnosis Critical 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 (CMS-HCC)- Primary [facility]* Diagnosis EMMA (obstructive sleep apnea)- Primary Obstructive sleep apnea (adult) (pediatric) documented in [facility]* Diagnosis Venous ulcer-leg syndrome, bilateral (CMS-HCC)- Primary 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 complications documented in this encounter [facility]* Diagnosis Varicose veins of both lower extremities with pain- Primary [facility]* Diagnosis Venous ulcer-leg [...] gangrene (CMS-HCC)- Primary [facility] filedocument[facility] this [facility]ocument[facility] in this [facility] filedocumented in this [facility] filedocumented in this [facility]ocumented in this encounter [facility] in this encounter [facility] Summary Purpose Family History No Family History Records FoundNo Family History Records Found Advance Directives Documents on File Type Date Recorded 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 Advance Directives and Living Will 09/15/2018 2001-05-13 Living Wi ll Advance Directives and Living Will 09/15/2018 2001-05-13 Healthcar e POA Date Activated Date Inactivated Comments 12/05/2020 7:21 PM 12/11/2020 6:03 PM Date Activated Date Inactivated Comments 12/05/2020 7:21 PM 12/11/2020 6:03 PM Latest Code Status on File Code Status Date Activated Date Inactivated Comments DNR Comfort Care Arrest (DNR-CCA) [place] 12/05/2020 7:21 P M 12/11/2020 6:03 PM Latest Code Status on File Code Status Date Activated Date Inactivated Comments DNR Comfort Care Arrest (DNR-CCA) [place] 12/05/2020 7:21 P M 12/11/2020 6:03 PM Reason for Referral Specialty Diagnoses / Procedures Referred By Contac t Referred To Contact Diagnoses PAD (peripheral artery disease) ([facility]-HCC) Procedures Vas art doppler lwr bilat mult lev/PVR Abraham Pimentel MD [address], [address] [address] Referral ID Status Reason Start Date Expiration Date V isits Requested Visits Authorized [id number] Pending Review 03/17/2024 03/17/2025 1 1 Specialty Diagnoses / Procedures Referred By Contac t Referred To Contact Diagnoses Venous ulcer-leg syndrome, bilateral (CMS-HCC) 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 complications Procedures Vas venous duplex insufficiency lwr Abraham Trujillo MD [address], [address] [address] Referral ID Status Reason Start Date Expiration Date V isits Requested Visits Authorized [id number] Pending Review 02/25/2024 02/24/2025 1 1 Specialty Diagnoses / Procedures Referred By Contac t Referred To Contact Diagnoses Varicose veins of both lower extremities with pain Procedures Vas venous duplex insufficiency lwr Abraham Trujillo MD [address], [address] [address] Referral ID Status Reason Start Date Expiration Date V isits Requested Visits Authorized [id number] Pending Review 03/10/2024 03/10/2025 1 1 Additional Source Comments (unrecognized sect ion and content) No Status Records FoundNo Status Records Found INFORMATION SOURCE (unrecogn ized section and content) DATE CREATED AUTHOR 04/08/2023 [facility] DATE CREATED AUTHOR AUTHOR'S ORGANIZ ATION 08/30/2024 [facility] Care Teams (unrecognized sec tion and content) Financial Consultant Relationship Specialty Start Date End Date Ines Cole MD [address] [place] [address] PCP - General Family Medicine 12/17/23 Marlene Moyer NP [address] [facility] [place] [address] Nurse Practitioner Family Medicine 12/17/23 Financial Consultant Relationship Specialty Start Date End Date Ines Cole MD [address] [facility] [place] [address] PCP - General Family Medicine 12/17/23 Marlene Moyer NP [address] [place] [address] Nurse Practitioner Family Medicine 12/17/23 Financial Consultant Relationship Specialty Start Date End Date Ines Cole MD [address] [place] [address] PCP - General Family Medicine 12/17/23 Marlene Moyer NP [address] [place] [address] Nurse Practitioner Family Medicine 12/17/23 Financial Consultant Relationship Specialty Start Date End Date Ines Cole MD [address] [place] [address] PCP - General Family Medicine 12/17/23 Marlene Moyer NP [address] [place] [address] Nurse Practitioner Family Medicine 12/17/23 Financial Consultant Relationship Specialty Start Date End Date Ines Cole MD [address] [place] [address] PCP - General Family Medicine 12/17/23 Marlene Moyer NP [address] [place] [address] Nurse Practitioner Family Medicine 12/17/23 Financial Consultant Relationship Specialty Start Date End Date Ines Cole MD [address] [place] [address] PCP - General Family Medicine 12/17/23 Marlene Moyer NP [address] [place] [address] Nurse Practitioner Family Medicine 12/17/23 Financial Consultant Relationship Specialty Start Date End Date Ines Cole MD [address] [facility] [place] [address] PCP - General Family Medicine 12/17/23 Marlene Moyer NP [address] [facility] [place] [address] Nurse Practitioner Family Medicine 12/17/23 Financial Consultant Relationship Specialty Start Date End Date Kerri Le DO [address] [place] [address] PCP - General Family Medicine 11/29/21 Financial Consultant Relationship Specialty Start Date End Date Kerri Le DO [address] [place] [address] PCP - General Family Medicine 11/29/21 Financial Consultant Relationship Specialty Start Date End Date Kerri Le DO [address] [facility] [place] [address] PCP - General Family Medicine 11/29/21 Financial Consultant Relationship Specialty Start Date End Date Kerri Le DO [address] [facility] [place] [address] PCP - General Family Medicine 11/29/21 Financial Consultant Relationship Specialty Start Date End Date Kerri Le DO [address] [place] [address] PCP - General Family Medicine 11/29/21 Financial Consultant Relationship Specialty Start Date End Date Kerri Le DO [address] [place] [address] PCP - General Family Medicine 11/29/21 Financial Consultant Relationship Specialty Start Date End Date Kerri Le DO [address] [place] [address] PCP - General Family Medicine 11/29/21 Financial Consultant Relationship Specialty Start Date End Date Kerri Le DO [address] [facility] [place] [address] PCP - General Family Medicine 11/29/21 Financial Consultant Relationship Specialty Start Date End Date Kerri Le DO [address] [facility] [place] [address] PCP - General Family Medicine 11/29/21 Reason for Visit (unrecogniz ed section and content) Reason Comments Establish Care Cellulitis Follow-up Reason Comments Hypertension Reason Comments Med Refill Reason Onset Date Comments Med Refill 11/18/2024 Reason Onset Date Comments Med Refill 11/22/2024 Reason Comments Post-op Reason Comments Wound Check Reason Comments non-healing wound from wound care [...] BE BASED ON THE PRIMARY CLINICAL RECORDS. [employer] provides no warranty or guarantee of the accuracy or completeness of information in this document.
--- NOTE | 2025-01-20 11:21 | XR_ITS ---
The [address] [address] Patient Name: ELPIDIO LEI MRN: [id number] date: 1945 Sex: M Assigned Patient Location: ER Current Patient Location: ER Accession/Order Number: [id number] Exam Date: 01/20/2025 11:56 Report Date: 01/20/2025 11:58 At the request of: ZANDRA STEWART MD Procedure: XR foot RT min 3V XR foot RT min 3V 01/20/2025 11:50 AM SIGNS AND SYMPTOMS: ^infection, R/O gas in soft tissue, soft tissue wounds along the medial aspect of the right foot PROTOCOL: Frontal, lateral, and oblique radiographs of the right foot COMPARISON: 05/26/2020 FINDINGS: There is evidence of previous amputation of the second digit. There is diffuse soft tissue swelling. There is diffuse osteopenia. Periosteal reaction is noted along the tip of the third distal phalanx which is new when compared to the prior exam. Underlying osteomyelitis is not excluded. Further interrogation with MRI of the right foot may be helpful. No fracture or dislocation. There is mild Achilles surface calcaneal spurring. XR/XR foot RT min 3V IMPRESSION: Diffuse soft tissue swelling consistent with cellulitis. No significant subcutaneous emphysema is noted. Periosteal reaction is noted along the tip of the third distal phalanx which is new when compared to the prior exam. Underlying osteomyelitis is not excluded. Further interrogation with MRI of the right foot may be helpful. Impression dictated by: Naun Pathak M.D.01/20/2025 11:58 AM Dictation Location: [place] [address] Electronically authenticated by: [id number] Y Date: 01/20/2025 11:58
--- NOTE | 2025-01-20 11:23 | ED_ITS ---
HPI HPI - General Adult General Chief complaint: Extremity Problem, Nontraumatic Stated complaint: LOWER EXTREMITY PAIN Time Seen by Provider: 01/20/25 11:08 Source: patient Mode of arrival: Wheelchair Limitations: no limitations History of Present Illness HPI narrative: 79-year-old male presents to the emergency department for right foot issue. He has an infection in the foot and saw his vascular surgeon yesterday who told him to go to [facility]. He came here instead today. The plan apparently according the patient is to do an amputation of that foot. This issue has been ongoing, for months. Related Data Home Medications ?Medication ?Instructions ?Recorded ?Confirmed ascorbic acid (vitamin C) 500 mg 500 mg PO DAILY 03/09/24 01/20/25 capsule aspirin 81 mg tablet,delayed 81 mg PO DAILY 03/09/24 01/20/25 release (Adult Aspirin Regimen) carvedilol 6.25 mg tablet 6.25 mg PO Q12H 03/09/24 01/20/25 citalopram 40 mg tablet (Celexa) 40 mg PO DAILY 03/09/24 01/20/25 collagenase clostridium histo. 250 1 applic topical DAILY 03/09/24 01/20/25 unit/gram topical ointment (Santyl) ferrous sulfate 325 mg (65 mg 325 mg PO DAILY 03/09/24 01/20/25 iron) tablet (FeroSul) furosemide 20 mg tablet (Lasix) 20 mg PO QPM 03/09/24 01/20/25 ibuprofen 200 mg capsule 400 mg PO Q6H PRN pain 03/09/24 01/20/25 multivitamin (Daily Multi-Vitamin 1 tab PO DAILY 03/09/24 01/20/25 tablet) potassium chloride 20 mEq 20 meq PO DAILY 03/09/24 01/20/25 tablet,extended release(part/cryst) zinc gluconate 50 mg tablet 50 mg PO DAILY 03/09/24 01/20/25 Allergies Allergy/AdvReac Type Severity Reaction Status Date / Time adhesive tape Allergy Rash Verified 03/09/24 10:30 Opioid HPI Opioid Management Most Recent Opioid Data: No Data to Display Review of Systems ROS Narrative A ten point review of systems is negative except as noted above. [facility] Medical History (Updated 01/20/25 @ 12:13 by Wil Harry MD) Abnormal chest x-ray ?R93.89 - Abnormal findings on diagnostic imaging of other specified body structures (ICD-10) Scoliosis ?M41.9 - Scoliosis, unspecified (ICD-10) High cholesterol ?E78.00 - Pure hypercholesterolemia, unspecified (ICD-10) Huber catheter in place ?Z97.8 - Presence of other specified devices (ICD-10) Depression ?F32.A - Depression, unspecified (ICD-10) COPD (chronic obstructive pulmonary disease) ?J44.9 - Chronic obstructive pulmonary disease, unspecified (ICD-10) Anemia ?D64.9 - Anemia, unspecified (ICD-10) Cellulitis of right lower extremity ?L03.115 - Cellulitis of right lower limb (ICD-10) Venous stasis ulcer of left lower leg with edema of left lower leg ?I83.029 - Varicose veins of left lower extremity with ulcer of unspecified site (ICD-10) ?I83.892 - Varicose veins of left lower extremity with other complications (ICD-10) ?L97.929 - Non-pressure chronic ulcer of unspecified part of left lower leg with unspecified severity (ICD-10) ?R60.0 - Localized edema (ICD-10) Paraplegia ?G82.20 - Paraplegia, unspecified (ICD-10) Neuromuscular weakness ?G70.9 - Myoneural disorder, unspecified (ICD-10) Iron deficiency ?E61.1 - Iron deficiency (ICD-10) Chronic respiratory failure with hypoxia and hypercapnia ?J96.11 - Chronic respiratory failure with hypoxia (ICD-10) ?J96.12 - Chronic respiratory failure with hypercapnia (ICD-10) Obstructive sleep apnea treated with BiPAP ?G47.33 - Obstructive sleep apnea (adult) (pediatric) (ICD-10) Obesity hypoventilation syndrome ?E66.2 - Morbid (severe) obesity with alveolar hypoventilation (ICD-10) Restrictive lung disease due to kyphoscoliosis ?J98.4 - Other disorders of lung (ICD-10) ?M41.9 - Scoliosis, unspecified (ICD-10) Hypertension ?I10 - Essential (primary) hypertension (ICD-10) Varicose veins of both lower extremities ?I83.93 - Asymptomatic varicose veins of bilateral lower extremities (ICD-10) Venous ulcer-leg syndrome ?I83.009 - Varicose veins of unspecified lower extremity with ulcer of unspecified site (ICD-10) ?L97.909 - Non-pressure chronic ulcer of unspecified part of unspecified lower leg with unspecified severity (ICD-10) Surgical History (Updated 03/09/24 @ 10:56 by Almaz Gómez NP) H/O vein stripping ?Z98.890 - Other specified postprocedural states (ICD-10) History of spinal surgery ?Z98.890 - Other specified postprocedural states (ICD-10) History of colostomy History of esophagogastroduodenoscopy (EGD) ?Z98.890 - Other specified postprocedural states (ICD-10) History of surgical removal of pilonidal cyst ?Z98.890 - Other specified postprocedural states (ICD-10) Family History (Updated 03/09/24 @ 10:39 by Almaz Gómez NP) Other Family history of bone cancer Family history of emphysema Social History (Updated 03/09/24 @ 10:33 by Almaz Gómez NP) Within the past year, how often did you have a drink containing alcohol: never Score interpretation: A score less than 4 is consistent with normal alcohol consumption. Smoking status: Never smoker Non-prescribed substance use: denies use Highest level of school completed/degree received: high school graduate Exam Narrative Exam Narrative: Nurses note and vital signs reviewed and patient is not hypoxic. General: The patient appears in no apparent distress. Patient is resting comfortably on cart. Skin: Warm, dry, no pallor noted. There is no rash noted. Head: Normocephalic, atraumatic Eye: Normal conjunctiva, no drainage Ears, Nose, Mouth, and Throat: oral mucosa is moist. Nares patent. Cardiovascular: Regular Rate and Rhythm Respiratory: Patient is in no distress, no accessory muscle use, lungs are clear to auscultation, no wheezing, rales or rhonchi Back: non-tender GI: Soft and nontender Musculoskeletal: The right foot has a dressing on it which is removed. The foot is swollen and erythematous and there are open wounds particularly in the distal aspect of the foot. There appears to be some slight purulent drainage. Neurological: A&O, normal speech Psychiatric: Cooperative Constitutional Vital Signs, click to edit/add: Last Vital Signs Temp 98.5 F 01/20/25 10:51 Pulse 89 01/20/25 10:51 Resp 18 01/20/25 10:51 BP 146/77 H 01/20/25 10:51 Pulse Ox 94 L 01/20/25 10:51 O2 Del Method Room Air 01/20/25 10:51 Course Vital Signs Vital signs: Vital Signs Temperature 98.5 F 01/20/25 10:51 Pulse Rate 89 01/20/25 10:51 Respiratory Rate 18 01/20/25 10:51 Blood Pressure 146/77 H 01/20/25 10:51 Pulse Oximetry 94 L 01/20/25 10:51 Oxygen Delivery Method Room Air 01/20/25 10:51 Temperature 98.5 F 01/20/25 10:51 Pulse Rate 89 01/20/25 10:51 Respiratory Rate 18 01/20/25 10:51 Blood Pressure 146/77 H 01/20/25 10:51 Pulse Oximetry 94 L 01/20/25 10:51 Oxygen Delivery Method Room Air 01/20/25 10:51 Medical Decision Making MDM Narrative Medical decision making narrative: 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 I spoke to Dr. Pimentel who request that the patient be transferred to [facility]. The plan is for amputation. He was given IV vancomycin and Zosyn here. Blood cultures and wound culture were obtained. Treatment diagnosis and disposition were discussed with the patient. Differential Diagnosis Differential Diagnosis: Gangrene, abscess, osteomyelitis, cellulitis Lab Data Lab results reviewed: Yes I reviewed the patient's lab results Labs: Lab Results 01/20/25 Range/Units 11:31 WBC 4.7 (4.0-11.0) 10^3/uL RBC 4.04 L (4.70-6.10) 10^6/uL Hgb 11.9 L (14.0-18.0) g/dL Hct 38.0 L (42.0-54.0) % MCV 94.1 H (80.0-94.0) fL MCH 29.5 (25.9-34.0) pg MCHC 31.3 (29.9-35.2) g/dL RDW 13.1 (11.0-15.0) % Plt Count 159 (150-450) 10^3/uL MPV 9.3 L (9.5-13.5) fL Sodium 141 (136-145) mmol/L Potassium 4.4 (3.5-5.1) mmol/L Chloride 104 (98-107) mmol/L Carbon Dioxide 33.4 H (21.0-32.0) mmol/L Anion Gap 8.0 BUN 20.0 H (7.0-18.0) mg/dL Creatinine 0.91 (0.70-1.30) mg/dL Est GFR ( Amer) >60 (>=60 mL/min/1.73m^2) Est GFR (Non-Af Amer) >60 (>=60 mL/min/1.73m^2) BUN/Creatinine Ratio 22.0 Glucose 101 (74-106) mg/dL Lactate 0.8 (0.4-2.0) mmol/L Calcium 9.1 (8.5-10.1) mg/dL Imaging Data Right foot x-ray: Radiologist's impression: ITS Impressions Foot X-Ray 01/20/25 11:21 IMPRESSION: Diffuse soft tissue swelling consistent with cellulitis. No significant subcutaneous emphysema is noted. Periosteal reaction is noted along the tip of the third distal phalanx which is new when compared to the prior exam. Underlying osteomyelitis is not excluded. Further interrogation with MRI of the right foot may be helpful. Impression dictated by: Naun Pathak M.D.01/20/2025 11:58 AM Dictation Location: [place] [address] Electronically authenticated by: [id number] Y Date: 01/20/2025 11:58 Discharge Plan Discharge Chief Complaint: Extremity Problem, Nontraumatic Clinical Impression: Gangrene Patient Disposition: [facility] Time of Disposition Decision: 12:13 Discharge Location: [facility] Condition: Fair Mode of Transportation: EMS
[2025-01-20 11:46] LABS: Hemoglobin 11.9 g/dL (14.0-18.0); Mean Corpuscular HGB Conc 31.3 g/dL (29.9-35.2); Mean Corpuscular Hemoglobin 29.5 pg (25.9-34.0); Mean Corpuscular Volume 94.1 fL (80.0-94.0); Mean Platelet Volume 9.3 fL (9.5-13.5); Platelet Count 159 10^3/uL (150-450); Red Blood Count 4.04 10^6/uL (4.70-6.10); Red Cell Distribution Width 13.1 % (11.0-15.0); White Blood Count 4.7 10^3/uL (4.0-11.0)
[2025-01-20 11:54] LABS: Calcium 9.1 mg/dL (8.5-10.1); Carbon Dioxide 33.4 mmol/L (21.0-32.0); Chloride 104 mmol/L (98-107); Estimated GFR (African America >60 (>=60 mL/min/1.73m^2); Estimated GFR (Non-African Ame >60 (>=60 mL/min/1.73m^2); Glucose 101 mg/dL (74-106); Potassium 4.4 mmol/L (3.5-5.1); Sodium 141 mmol/L (136-145)
[2025-01-20 12:03] LABS: Lactate/Lactic Acid 0.8 mmol/L (0.4-2.0)
[2025-01-20] MEDS: PIPERACILLIN SODIUM/TAZOBACTAM 3.375 GM in 0.9 % SODIUM CHLORIDE 50 ML IV ×2 (12:27→20:08)
[2025-01-20 12:28] LABS: Basophils Abs Manual 0.04 10^3/uL (0.00-0.10); Eosinophils Absolute Manual 0.09 10^3/uL (0.00-0.70); Lymphocytes Absolute Manual 0.56 10^3/uL (1.20-3.80); Monocytes Absolute Manual 0.28 10^3/uL (0.30-0.80); Segmented Neut Absolute Manual 3.71 10^3/uL (1.4-6.5)
[2025-01-20] MEDS: VANCOMYCIN HCL 1,750 MG in 0.9 % SODIUM CHLORIDE 500 ML 250 MG IV (13:01)
[2025-01-20 16:10] VITALS: BP 114/54; PULSE 77; TEMP 36.9; O2SAT 92
[2025-01-20 18:58] VITALS: BP 129/75; PULSE 84; TEMP 37.4; O2SAT 93
[2025-01-20 20:15] VITALS: BP 140/74; PULSE 95; O2SAT 88
[2025-01-20 20:16] VITALS: O2SAT 91
== END 2025-01-20 21:29 | disposition short-term general hospital (02) ==
PROVIDERS: Emergency Provider Emergency Medicine; PCP Family Medicine
DX: I96 Gangrene, not elsewhere classified (principal)
CPT/HCPCS: 36415; 73630; 80048; 83605; 85007; 85027; 87040; 87070; 96365; 96366; 96367; 99285; J2543; J3370

== ENCOUNTER 2025-03-29 15:30 | Outpatient (OUT) | payer MEDICARE, SELFPAY | END 2025-03-29 15:31 | disposition home or self-care (01) | LOC: WC 15:30 | PROVIDERS: PCP Family Medicine; Visit Provider Physician Assistant | DX: I87.312 Chronic venous hypertension (idiopathic) with ulcer of left lower extremity (principal); L97.321 Non-pressure chronic ulcer of left ankle limited to breakdown of skin; T87.89 Other complications of amputation stump; L97.922 Non-pressure chronic ulcer of unspecified part of left lower leg with fat layer exposed; L89.620 Pressure ulcer of left heel, unstageable | CPT/HCPCS: 29580 ==

== ENCOUNTER 2025-04-19 10:48 | Outpatient (OUT) | payer MEDICARE, SELFPAY ==
--- OUTSIDE RECORDS SUMMARY | 2025-03-27 14:30 | XMS_ITS | Encounter Summary ---
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; Gastroesophageal reflux disease, unspecified whether esophagitis present; EMMA treated with BiPAP; Incomplete paraplegia (CMS/HCC); Mixed hyperlipidemia (CMS/HCC); Dependence on supplemental oxygen; Neurogenic bladder; Recurrent major depressive disorder, in partial remission (HCC) (CMS/HCC); PAD (peripheral artery disease) ([facility]) Social History Tobacco Use Types Packs/Day Years Used Date Smoking Tobacco: Never Smokeless Tobacco: Never Alcohol Use Standard Drinks/Week Comments Not Currently 0 (1 standard drink = 0.6 oz pur e alcohol) caffeine: 1-2 cups per day Humiliation, Afraid, Rape, and Kick questionnair e Answer Date Recorded Within the last year, have y ou been afraid of your partner or ex-partner? Patient declined 01/01/2024 Within the last year, have y ou been humiliated or emotionally abused in other ways by your partner or ex-partner? Patient declined 01/01/2024 Within the last year, have y ou been kicked, hit, slapped, or otherwise physically hurt by your partner or ex-partner? Patient declined 01/01/2024 Within the last year, have y ou been raped or forced to have any kind of sexual activity by your partner or ex-partner? Patient declined 01/01/2024 Social Connection and Isolat ion Panel [NHANES] Answer Date Recorded In a typical week, how many times do you talk on the phone with family, friends, or neighbors? More than three times a week 01/01/2024 How often do you get togethe r with friends or relatives? Patient declined 01/01/2024 Attends Taoist Services Not on file 01/01 Do you belong to any clubs o r organizations such as catholic groups, unions, fraternal or athletic groups, or school groups? Patient declined 01/01/2024 How often do you attend meet ings of the clubs or organizations you belong to? Patient declined 01/01/2024 Are you , , di vorced, , never , or living with a partner? 01/01/2024 AUDIT-C Answer Date Recorded Q1: How often do you have a drink containing alcohol? Never 01/01/2024 Q2: How many drinks containi ng alcohol do you have on a typical day when you are drinking? Patient does not drink Q3: How often do you have si x or more drinks on one occasion? Never 01/01/2024 Overall Financial Resource Strain (CARDIA) Answe r Date Recorded How hard is it for you to pa y for the very basics like food, housing, medical care, and heating? Patient declined 01/01/2024 PHQ-2 Answer Date Recorded Patient Health Questionnaire-2 Score 0 08/26/2023 [facility] Occup[facility] - Occupational Stress Questionnaire Answer Date Recorded Do you feel stress - tense, restless, nervous, or anxious, or unable to sleep at night because your mind is troubled all the time - these days? Patient declined 01/01/2024 Exercise Vital Sign Answer Date Recorde d On average, how many days pe r week do you engage in moderate to strenuous exercise (like a brisk walk)? Patient declined On average, how many minutes do you engage in exercise at this level? Patient declined 01/01/2024 Hunger Vital Sign Answer Date Recorded Worried About Running Out of Food in the Last Ye ar Not on file 01/01/2024 Within the past 12 months, t he food you bought just didn't last and you didn't have money to get more. Patient declined 12/2023 PRAPARE - Transportation Answer Date Re corded In the past 12 months, has l ack of transportation kept you from medical appointments or from getting medications? Patient declined 01/01/2024 In the past 12 months, has l ack of transportation kept you from meetings, work, or from getting things needed for daily living? Patient declined 01/01/2024 Housing Stability Vital Sign Answer Brodie e Recorded In the last 12 months, was t here a time when you were not able to pay the mortgage or rent on time? Patient refused 01/01/20 24 Number of Places Lived in the Last Year Not on f ile 01/01/2024 In the last 12 months, was t here a time when you did not have a steady place to sleep or slept in a jail (including now)? Patient refused 01/01/2024 Sex and Gender Information Value Date Recorded Sex Assigned at Not on file Legal Sex Male 7:29 PM EDT Gender Identity Not on file Sexual Orientation Not on file documented as of this encounter Last Filed Vital Signs Vital Sign Reading Time Taken Comments Blood Pressure 124/62 03/27/2025 1:52 PM EDT Pulse 60 03/27/2025 1:52 PM EDT Temperature - - Respiratory Rate - - Oxygen Saturation 90% 03/27/2025 1:52 PM EDT Inhaled Oxygen Concentration - - Weight - - Height - - Body Mass Index - - documented in this encounter Progress Notes * Suzi Moyer NP - 03/27/2025 2:30 PM EDT Images from the original note were not included. Kj Mora is a 79 y.o. male presents with chief complaint of Follow-up HPI: HPI Patient presents to the office today for follow-up since discharged from the facility. He is still followed by the wound center regularly. Home health comes out once a week to help him. He does not follow with pulmonology, wears oxygen at night only, refuses to wear his bipap. He is not able to getin and out of the bed without significant help. He is currently calling 911 every morning to get him out of bed into his chair and then again at night to get back into bed. He states his grandson is planning on building a room for him to help accommodate his needs. He purchased a lift off the marketplace. His insurance cut his therapy at the facility and it would have cost him over $400 a day to stay and he cannot afford this. He is requesting a new wheelchair to help with his mobility in the home. Flowsheet Row Patient Outreach from 03/14/2025 in [facility] with Chanelle Fernandez RN Hospital Information ED, Hospital or Half-Way Facility Discharge? 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 02/11-02/14 admitted [facility] dt sepsis with AKF, he was transferred out [facility] 02/14-02/17 dt sepsis and then dced to . Discharge Date 03/11/25 Discharged To: Home Setting Discharge Hospital [facility] Half-Way Facilities [facility] Admission Date 02/17/25 Medications Discharge medications reviewed and reconciled from hospital? Yes Is the patient having any side effects they believe may be caused by any medication additions or changes? No Does the patient have all medications ordered at discharge? Yes Nursing Interventions Nurse provided patient education Is the patient taking all medications as directed (includes completed medication regime)? Yes Appointments Does the patient have a primary care provider? Yes Nursing Interventions Verified appointment date/time/provider Does the patient have any upcoming specialty appointments? Yes Nursing Interventions Advised patient to keep appointment Self Management Does patient have home health? yes [facility] home health visited the patient within 72 hours of discharge? Yes Home Health Interventions Called home health agency Patient Teaching Does the patient have access to their discharge instructions? Yes Nursing Interventions Reviewed instructions with patient What is the patient's perception of their health status since discharge? Same Is the patient/caregiver able to teach back the hierarchy of who to call/visit for symptoms/problems? PCP, Specialist, Home Health nurse, Urgent Care, ED, 911 Yes Wrap Up SUBJECTIVE: MEDICATIONS: Current Outpatient Medications Medication Instructions acetaminophen (TYLENOL) 1,000 mg, 4 times daily ascorbic acid (Vitamin C) 250 MG chewable tablet Every 24 hours aspirin 81 MG EC tablet Every 24 hours atorvastatin (LIPITOR) 40 mg, Daily carvedilol (Coreg) 3.125 MG tablet cephalexin (Keflex) 500 MG capsule cholecalciferol (VITAMIN D-3) 50,000 Units, Every 7 days citalopram (CeleXA) 20 MG tablet FeroSul 325 mg, Oral, Daily furosemide (LASIX) 40 mg, Oral, Daily ibuprofen 200 MG tablet 1 tablet with food or milk as needed Orally pt taking daily L-lysine 1000 MG tablet Take by mouth Multiple Vitamin (MULTIVITAMIN ADULT PO) Every 24 hours omeprazole (PRILOSEC) 40 mg, Oral, Daily before breakfast, Do not crush or chew. oxygen (O2) 2 L/min, Continuous potassium chloride CR (K-Tab) 20 MEQ ER tablet 20 mEq, Oral, Daily, Do not crush, chew, or split. potassium chloride CR (Klor-Con) 10 MEQ ER tablet 10 mEq, Oral, Every evening, with food rosuvastatin (Crestor) 10 MG tablet Every 24 hours tamsulosin (FLOMAX) 0.4 mg, Nightly zinc gluconate 50 MG tablet Every 24 hours I have reviewed and reconciled the history and medication list with the patient today. REVIEW OF SYMPTOMS: Review of Systems OBJECTIVE: Visit Vitals BP 124/62 Pulse 60 SpO2 90% Smoking Status Never Physical Exam Vitals reviewed. Constitutional: Appearance: He is obese. HENT: Head: Normocephalic and atraumatic. Nose: Nose normal. Mouth/Throat: Mouth: Mucous membranes are moist. Eyes: Pupils: Pupils are equal, round, and reactive to light. Cardiovascular: Rate and Rhythm: Normal rate and regular rhythm. Pulses: Normal pulses. Heart sounds: Normal heart sounds. Pulmonary: Effort: Pulmonary effort is normal. Breath sounds: Normal breath sounds. Musculoskeletal: Cervical back: Normal range of motion and neck supple. 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 Skin: General: Skin is warm and dry. Capillary Refill: Capillary refill takes less than 2 seconds. Findings: No rash. Comments: BLE dressing in place per wound care. Padded dressing to buttocks Neurological: General: No focal deficit present. Mental Status: He is alert and oriented to person, place, and time. ASSESSMENT AND PLAN: Assessment/Plan Diagnoses and all orders for this visit: Iron deficiency - CBC and differential; Future - Iron + transferrin + TIBC; Future -on iron Primary hypertension (CMS/HCC) - Comprehensive metabolic panel; Future - carvedilol (Coreg) 3.125 MG tablet; Take 1 tablet (3.125 mg) by mouth in the morning and 1 tablet(3.125 mg) in the evening. Take with meals. - furosemide (Lasix) 20 MG tablet; Take 2 tablets (40 mg) by mouth Daily -Discussed current management plan. Goal BP less then 130/80. Discussed heart healthy diet, increase fruits and vegetables, limit salt intake. Encouraged increase physical exercise, try to be as active as possible at least 150 mins per week. Importance of weight management with a goal BMI less then27 discussed. Discussed complications of uncontrolled blood pressure. Patient instructed to monitorBP's 1-2 times a week, keep a log, and bring to next visit. Barriers to care and medication compliance discussed. Patient voices understanding of meds. 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 Take before meals. Do not crush or chew. EMMA treated with BiPAP -refuses bipap therapy, no longer follows with pulmonology Incomplete paraplegia (CMS/HCC) -Due to patient's diagnosis of incomplete paraplegia and complete immobility due to severe physicaldisability and being wheelchair bound, this creates mobility limitations that significantly impairsa patients ability to participate in one or more mobility related activities of daily living (MRADLS) within the home. The use of a power wheelchair will significantly improve a patient's ability to participate in MRADLS in the home as well as decrease safety concerns. The mobility deficits cannot be sufficiently and safely resolved with the use of an appropriately fitted cane or walker as he paraplegic. Patient does not have sufficient upper extremity function to self-propel an optimally configured manual wheelchair in the home. Due to patient's DX paraplegia this also creates a difficulty with lower extremity function. TThe patient s mental capabilities and physical capabilities are sufficient for safe mobility using the power wheelchair. The patient has not expressed an unwillingness to use the power chair in the home. A scooter will not work for patient in the home due to larger turning radius. A PT evaluation has been reviewed and is in agreement with these findings. Mixed hyperlipidemia (CMS/HCC) - atorvastatin (Lipitor) 40 MG tablet; Take 1 tablet (40 mg) by mouth Daily Dependence on supplemental oxygen Neurogenic bladder - tamsulosin (Flomax) 0.4 MG 24 hr capsule; Take 1 capsule (0.4 mg) by mouth at bedtime Recurrent major depressive disorder, in partial remission (HCC) (CMS/HCC) - citalopram (CeleXA) 20 MG tablet; Take 1 tablet (20 mg) by mouth Daily PAD (peripheral artery disease) (CMS/HCC) -followed by vascular and wound care documented in this encounter Plan of Treatment Upcoming Encounters Date Type Department Care Team (Late st Contact Info) Description 09/25/2025 12:30 PM EDT Office Visit [facility] [address] [place] [address] Suzi Moyer NP [address] [place] [address] documented as of this encounter Procedures Procedure Name Priority Date/Time Associated Diagnosis Comments IRON + TRANSFERRIN + TIBC Routine 03/27/2025 2:40 PM EDT Iron deficiency VITAMIN D 25 HYDROXY TOTAL Routine 03/27/2025 2:40 PM EDT Vitamin D deficiency CBC (INCLUDES DIFF/PLT) Routine 03/27/2025 2:40 PM EDT Iron deficiency COMPREHENSIVE METABOLIC PANEL Routine 03/27/2025 2:40 PM EDT Primary hypertension (CMS/HCC) documented in this encounter Results * Vitamin D 25 hydroxy (03/27/2025 2:40 PM EDT) VITAMIN D,25-OH,TOTAL,IA 50 30 - 100 ng/mL [facility] Comment: Vitamin D Status 25-OH Vitamin D: Deficiency: <20 ng/mL Insufficiency: 20 - 29 ng/mL Optimal: > or = 30 ng/mL For 25-OH Vitamin D testing on patients on D2-supplementation and patients for whom quantitation of D2 and D3 fractions is required, the QuestAssureD(TM) 25-OH VIT D, (D2,D3), LC/MS/MS is recommended: order code 62736 (patients >2yrs). See Note 1 Note 1 For additional information, please refer to http://education.BOARDZ/faq/DES768 (This link is being provided for informational/ educational purposes only.) Blood Venous blood specimen / Unknown 03/27/2025 2:40 PM EDT 03/27/2025 2:41 PM EDT Narrative Resulting Agency Comment Performing Organization Information Site ID: QPT Name: [facility] Address: [address] [place] [id number] Director: Maninder Alves MD us Suzi Moyer CORNER TRIMMER OPERATOR LAB BLOOD ORDERABLES Final Resu lt [facility] * (ABNORMAL) Iron + transferrin + TIBC (03/27/2025 2:40 PM EDT) IRON, TOTAL 43(L) 50 - 180 mcg/dL [facility] IRON BINDING CAPACITY 274 250 - 425 mcg/dL (calc) [facility] % SATURATION 16(L) 20 - 48 % (calc) [facility] FERRITIN 47 24 - 380 ng/mL [facility] Blood Venous blood specimen / Unknown 03/27/2025 2:40 PM EDT 03/27/2025 2:41 PM EDT Narrative Resulting Agency Comment Performing Organization Information Site ID: QPT Name: [facility] Address: [address] [place] [address], [address] [place] [address] Director: Maninder Alves MD Suzi Moyer NP LAB BLOOD ORDERABLES Final Resu lt [facility] * (ABNORMAL) CBC and differential (03/27/2025 2:40 PM EDT) WHITE BLOOD CELL COUNT 3.9 3.8 - 10.8 Thousand/u L [facility] RED BLOOD CELL COUNT 3.24(L) 4.20 - 5.80 Million/uL [facility] HEMOGLOBIN 9.4(L) 13.2 - 17.1 g/dL [facility] HEMATOCRIT 30.6(L) 38.5 - 50.0 % [facility] MCV 94.4 80.0 - 100.0 fL [facility] MCH 29.0 27.0 - 33.0 pg [facility] MCHC 30.7(L) 32.0 - 36.0 g/dL [facility] Comment: For adults, a slight decrease in the calculated MCHC value (in the range of 30 to 32 g/dL) is most likely not clinically significant; however, it should be interpreted with caution in correlation with other red cell parameters and the patient's clinical condition. RDW 13.3 11.0 - 15.0 % [facility] PLATELET COUNT 212 140 - 400 Thousand/u L [facility] MPV 9.7 7.5 - 12.5 fL [facility] ABSOLUTE NEUTROPHILS 2,582 1,500 - 7,800 cells/uL [facility] ABSOLUTE LYMPHOCYTES 714(L) 850 - 3,900 cells/uL [facility] ABSOLUTE MONOCYTES 367 200 - 950 cells/uL [facility] ABSOLUTE EOSINOPHILS 207 15 - 500 cells/uL [facility] ABSOLUTE BASOPHILS 31 0 - 200 cells/uL [facility] NEUTROPHILS 66.2 % [facility] LYMPHOCYTES 18.3 % [facility] MONOCYTES 9.4 % [facility] EOSINOPHILS 5.3 % [facility] BASOPHILS 0.8 % [facility] Blood Venous blood specimen / Unknown 03/27/2025 2:40 PM EDT 03/27/2025 2:41 PM EDT Narrative Resulting Agency Comment Performing Organization Information Site ID: QPT Name: [facility] Address: [address] [place] [address], [address] [place] [address] Director: Maninder Alves MD us Suzi Moyer NP LAB BLOOD ORDERABLES Final Resu lt [facility] * (ABNORMAL) Comprehensive metabolic panel (03/27/2025 2:40 PM EDT) Glucose 109(H) 65 - 99 mg/dL [facility] Comment: Fasting reference interval For someone without known diabetes, a glucose value between 100 and 125 mg/dL is consistent with prediabetes and should be confirmed with a follow-up test. BUN 18 7 - 25 mg/dL [facility] Creatinine 0.63(L) 0.70 - 1.28 mg/dL [facility] EGFR 98 > OR = 60 mL/min/1.7 3m2 [facility] BUN/CREATININE RATIO 29(H) 6 - 22 (calc) [facility] Sodium 142 135 - 146 mmol/L [facility] Potassium, Bld 3.8 3.5 - 5.3 mmol/L [facility] Chloride 104 98 - 110 mmol/L [facility] Carbon Dioxide 30 20 - 32 mmol/L [facility] Calcium 8.5(L) 8.6 - 10.3 mg/dL [facility] PROTEIN, TOTAL 6.7 6.1 - 8.1 g/dL [facility] ALBUMIN 3.4(L) 3.6 - 5.1 g/dL [facility] GLOBULIN 3.3 1.9 - 3.7 g/dL (calc) [facility] ALBUMIN/GLOBULIN RATIO 1.0 1.0 - 2.5 (calc) [facility] BILIRUBIN, TOTAL 0.3 0.2 - 1.2 mg/dL [facility] ALKALINE PHOSPHATASE 69 35 - 144 U/L [facility] AST 17 10 - 35 U/L [facility] ALT 11 9 - 46 U/L [facility] Blood Venous blood specimen / Unknown 03/27/2025 2:40 PM EDT 03/27/2025 2:41 PM EDT Narrative Resulting Agency Comment Performing Organization Information Site ID: QPT Name: 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 Iron deficiency anemia secondary to inadequate dietary iron intake Gastroesophageal reflux disease, unspecified whether esophagitis present EMMA treated with BiPAP Incomplete paraplegia (CMS/HCC) Mixed hyperlipidemia (CMS/HCC) Mixed hyperlipidemia Dependence on supplemental oxygen Neurogenic bladder Neurogenic bladder, NOS Recurrent major depressive disorder, in partial remission (HCC) (CMS/HCC) PAD (peripheral artery disease) (CMS/HCC) Unspecified peripheral vascular disease documented in this encounter Additional Health Concerns Assessment Noted Time PHQ-9 Depression Total Score: 0 02/23/20 24 1:00 PM EDT documented as of this encounter Care Teams Setter Helper Relationship Specialty Start Date End Date Ines Cole MD [address] [place], [place] [id number] PCP - General Family Medicine 12/17/23 Suzi Moyer NP [address] [place], [place] [id number] Nurse Practitioner Family Medicine 12/17/23 documented as of this encounter
--- OUTSIDE RECORDS SUMMARY | 2025-04-19 10:52 | XMS_ITS | Encounter Summary ---
Author Organization [facility] Address [address] [place] [address] Care Team Providers Care Bench Assembler Operator Name Role Phone Ines Cole MD Primary Care Provider [phone] Suzi Moyer NP Unavailable [phone] Encounter Details Date Type Department Care Team (Late st Contact Info) Description 02/06/2024 Abstract [facility] [address] [place] [address] Ines Cole MD [address] [place], [place] [id number] Social History Tobacco Use Types Packs/Day Years [...] friends or relatives? Patient declined 01/01/2024 Attends [employer] Services Not on file 01/01 Do you belong to any clubs o r organizations such as scientologist groups, unions, fraternal or athletic groups, or [...] Recorded Patient Health Questionnaire-2 Score 0 08/26/2023 [facility] Occupat ional Health - Occupational Stress [...] place to sleep or slept in a chcf (including now)? Patient refused 01/01/2024 Sex and Gender Information Value Date Recorded Sex Assigned at Not on file Legal Sex Male 7:29 PM EDT Gender Identity Not on file Sexual Orientation Not on file documented as of this encounter Plan of Treatment Upcoming Encounters Date Type Department Care Team (Late st Contact Info) Description 09/25/2025 12:30 PM EDT Office Visit [facility] [address] [place] [address] Suzi Moyer NP [address] [place] [address] documented as of this encounter Visit Diagnoses Not on filedocumented in this encounter Care Teams Bench Assembler Operator Relationship Specialty Start Date End Date Ines Cole MD [address] [facility] [place] [address] PCP - General Family Medicine 12/17/23 Suzi Moyer NP [address] [facility] [place] [address] Nurse Practitioner Family Medicine 12/17/23 documented as of this encounter
--- OUTSIDE RECORDS SUMMARY | 2025-04-19 10:52 | XMS_ITS | Encounter Summary ---
Author Organization [facility] tem Address [id number] [address] [place] [address] Care Team Providers Care Developer Prover Upholstering Name Role Phone Kamryn Rios MD Primary Care Provider [phone] Encounter Details Date Type Department Care Team (Late st Contact Info) Description 06/03/2019 Telephone [facility] [address] [place] [address] Mary Da Silva, MITCH Social History Tobacco Use Types Packs/Day Years Used Date Smoking Tobacco: Never Smokeless Tobacco: Never Alcohol Use Standard Drinks/Week Comments Yes 0 (1 standard drink = 0.6 oz pur e alcohol) occasionally Childcare Answer Date Recorded Childcare Unknown 04/29/2019 Employment Answer Date Recorded Employment Unknown 04/29/2019 Sex and Gender Information Value Date Recorded Sex Assigned at Not on file Legal Sex Male 11:21 AM EDT Gender Identity Not on file Sexual Orientation Not on file documented as of this encounter Plan of Treatment Not on file documented as of this encounter Visit Diagnoses Not on filedocumented in this encounter Additional Health Concerns Infection Onset Date Last Indicated Resolved Time COVID-19 Rule-Out 12/05/2020 12/05/2020 12/06/2020 12:15 PM EST documented as of this encounter Care Teams Developer [employer]ph[employer]st[employer] Relationship Specialty Start Date End Date Kamryn Rios MD [address] [place] [address] PCP - General Internal Medicine 02/11/25 documented as of this encounter
--- OUTSIDE RECORDS SUMMARY | 2025-04-19 10:52 | XMS_ITS | Encounter Summary ---
Author Organization [facility] bounce[facility]io [facility] tem Address [id number] [address] [place] [address] Care Team Providers Care Optometry Doctor Name Role Phone Kamryn Rios MD Primary Care Provider [phone] Encounter Details Date Type Department Care Team (Late st Contact Info) Description 01/29/2021 Telephone [facility] [address] [place] [address] Mary Da Silva, MITCH Social History Tobacco Use Types Packs/Day Years Used Date Smoking Tobacco: Never Smokeless Tobacco: Never Alcohol Use Standard Drinks/Week Comments Yes 0 (1 standard drink = 0.6 oz pur e alcohol) occasionally PHQ-2 Answer Date Recorded Total Score 0 12/05/2020 Childcare Answer Date Recorded Childcare Unknown 04/29/2019 Employment Answer Date Recorded Employment Unknown 04/29/2019 Purpose - Life Answer Date Recorded Purpose and direction in life Unknown Sex and Gender Information Value Date Recorded Sex Assigned at Not on file Legal Sex Male 11:21 AM EDT Gender Identity Not on file Sexual Orientation Not on file COVID-19 Exposure Response Date Recorded In the last month, have you been in contact with someone who was confirmed or suspected to have Coronavirus / COVID-19? No / Unsure 02/01/2021 1:23 PM EST documented as of this encounter Plan of Treatment Not on file documented as of this encounter Visit Diagnoses Not on filedocumented in this encounter Additional Health Concerns Assessment Noted Time PHQ-9 Depression Total Score: 0 12/05/19 21 7:06 PM EST documented as of this encounter Care Teams Optometry Doctor Relationship Specialty Start Date End Date Kamryn Rios MD [address], [address] [place] [address] PCP - General Internal Medicine 02/11/25 documented as of this encounter
--- OUTSIDE RECORDS SUMMARY | 2025-04-19 10:52 | XMS_ITS | Encounter Summary ---
Author Organization [facility] Address [address] [place] [address] Care Team Providers Care Hog Scalder Name Role Phone America Childs MD Primary Care Provider [phone] Suzi Moyer NP Unavailable [phone] Encounter Details Date Type Department Care Team (Late st Contact Info) Description 04/05/2024 Clinisync Result Encounter [facility] External Department Unsolicited Provider, Generic External Data Social History Tobacco Use Types Packs/Day Years [...] friends or relatives? Patient declined 01/01/2024 Attends Jew Services Not on file 01/01 Do you belong to any clubs o r organizations such as christianity groups, unions, fraternal or athletic groups, or [...] Recorded Patient Health Questionnaire-2 Score 0 08/26/2023 [facility] - Occupational Stress [...] place to sleep or slept in a penitentiary (including now)? Patient refused 01/01/2024 Sex and Gender Information Value Date Recorded Sex Assigned at Not on file Legal Sex Male 7:29 PM EDT Gender Identity Not on file Sexual Orientation Not on file documented as of this encounter Plan of Treatment Upcoming Encounters Date Type Department Care Team (Late st Contact Info) Description 09/25/2025 12:30 PM EDT Office Visit [facility] [address] [place] [address] Suzi Moyer NP [address] [place], [place] [id number] documented as of this encounter Procedures Procedure Name Priority Date/Time Associated Diagnosis Comments SEGMENTAL BLOOD PRESSURE 04/05/2024 9:19 AM EDT documented in this encounter Results * SEGMENTAL BLOOD PRESSURE (04/05/2024 9:19 AM EDT) Anatomical Region Laterality Modality Radiographic Chanelle ging 04/05/2024 9:19 AM EDT Narrative 04/05/2024 10:50 [place] [address] Cardiology Report Signed Patient: KJ LEI MR#: [id number] : 1945 Acct:[id number] Age/Sex: 78 / M ADM Date: 04/05/24 Loc: CARD Attending Dr: Abraham Pimentel M.D. Ordering Physician: Abraham Pimentel M.D. Date of Service: 04/05/24 Procedure(s): CA segmental UE or LE ANNE Accession Number(s): [id number] cc: AMERICA CHILDS ; Abraham Pimentel M.D. 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 Right: - no significant pressure gradient between cuffs - abnormal EDWARD Left: - no significant pressure gradient between cuffs - abnormal EDWARD Impression: - Elevated indices throughout, consistent with calcified, noncompressible arterial cabrera, which may underestimate the degree of arterial disease present. - Results are nondiagnostic due to noncompressible arterial cabrera. Electronically Signed On 04-05-2024 22:50:14 EDT by NIK ANDRADE Dictated By: Nik Andrade D.O. Signed By: 04/05/24224904/05/242249 DD/ 8 TD/TT: Manager Voice: Procedure Note Radiology, Radiologist, MD - 04/05/2024 [place] [address] Cardiology Report Signed Patient: KJ LEI LMR#: [id number] : 1945cct:[id number] Age/Sex: 78 / MADM Date: 04/05/24 Loc: CARD Attending Dr: Abraham Pimentel M.D. Ordering Physician: Abraham Pimentel M.D. Date of Service: 04/05/24 Procedure(s): CA segmental UE or LE ANNE Accession Number(s): [id number] cc: AMERICA CHILDS ; Abraham Pimentel M.D. 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 Right: - no significant pressure gradient between cuffs - abnormal EDWARD Left: - no significant pressure gradient between cuffs - abnormal EDWARD Impression: - Elevated indices throughout, consistent with calcified, noncompressible arterial cabrera, which may underestimate the degree of arterial disease present. - Results are nondiagnostic due to noncompressible arterial cabrera. Electronically Signed On 04-05-2024 22:50:14 EDT by NIK ANDRADE Dictated By: Nik Andrade D.O. Signed By:04/05/24224904/05/242249 DD/ 8 TD/TT: Manager Voice: us Generic External Data Provider IMG XR PROCEDURES Final Result documented in this encounter Visit Diagnoses Not on filedocumented in this encounter Additional Health Concerns Assessment Noted Time PHQ-9 Depression Total Score: 0 02/23/20 24 1:00 PM EDT documented as of this encounter Care Teams Hog Scalder Relationship Specialty Start Date End Date America Childs MD [address] [facility] [place] [address] PCP - General Family Medicine 12/17/23 Suzi Moyer NP [address] [facility] [address] [place], [place] [id number] Nurse Practitioner Family Medicine 12/17/23 documented as of this encounter
--- OUTSIDE RECORDS SUMMARY | 2025-04-19 10:52 | XMS_ITS | Clinical Summary ---
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 Active citalopram (CeleXA) 40 mg tablet Take 1 tablet (40 mg total) by mouth in the morning. Active furosemide (LASIX) 20 mg tablet Take 1 tablet (20 mg total) by mouth 2 (two) times a day. Active oxygen Inhale 3-4 L/min as needed. Active atorvastatin (LIPITOR) 20 mg tablet Take 1 tablet (20 mg total) by mouth in the morning and 1 tablet (20 mg total) before bedtime. Active ascorbic acid (VITAMIN C) 500 mg tablet Take 1 tablet (500 mg total) by mouth in the morning. Active zinc sulfate (ZINCATE) 50 mg zinc (220 mg) capsule Take 1 capsule (220 mg total) by mouth in the morning. Active aspirin 81 mg chewable tablet Chew 1 tablet (81 mg total) and swallow in the morning. Active acetaminophen (TYLENOL EXTRA STRENGTH) 500 mg tablet Take 2 tablets (1,000 mg total) by mouth every 6 (six) hours. 30 tablet 01/26/2025 Active cholecalciferol (VITAMIN D3) 50,000 units capsule Take 1 capsule (50,000 Units total) by mouth once a week. 4 capsule 11 02/01/2025 Active tamsulosin (FLOMAX) 0.4 mg capsule Take 1 capsule (0.4 mg total) by mouth nightly. 02/01/2025 Active ferrous sulfate 325 (65 FE) MG tablet Take 1 tablet (325 mg total) by mouth daily with breakfast. 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 Continue wound care. Assessment & Plan (01/19/2025 11:22 AM EST): I discussed with him that he needs guillotine amputation followed by formal amputation below the knee or above the knee. I advised him that he gets admitted. He would like to go home and get his affairs in place and then go to the ER tomorrow. I discussed with him the risk benefits and alternatives of each option. Assessment & Plan (11/03/2024 11:43 AM EST): Right below-knee amputation. We had a long [...] the wound has been there for years. Assessment & Plan (04/07/2024 10:49 AM EDT): His ABIs are normal. He has normal PVR waveforms. He has abnormal digital waveforms. Discussed with him that this is a sign of small vessel disease for which best medical therapy and hyperbaric therapy are the best option. Assessment & Plan (03/24/2024 9:12 AM EDT): PVR, I ordered, will be done at the 7th, will see him after and decide further plans. Continue wound care. Venous ulcer-leg syndrome, bilateral 02/25/2024 Assessment & Plan (03/24/2024 9:13 AM EDT): He is status post injection sclerotherapy. Continue Unna boot and wound care. We will get PVR as well to make sure he has enough arterial below to heal this wound and the right great toe wound as well. Assessment & Plan (02/25/2024 6:32 PM EDT): Venous reflux ultrasound Bilateral lower extremity ultrasound-guided injection sclerotherapy Cellulitis of right lower extremity 12/05/2020 Paraplegia 11/09/2019 Venous stasis ulcer of left lower leg with edema of left lower leg 10/06/2018 Chronic respiratory failure with hypoxia and hyp ercapnia 09/22/2018 Neuromuscular weakness 02/11/2018 Restrictive lung disease due to kyphoscoliosis 0 02/11/2018 Obesity hypoventilation syndrome 02/11/2018 Essential hypertension 02/11/2018 EMMA treated with BiPAP 02/11/2018 Iron deficiency 09/14/2014 Encounters Date Type Department Care Team Description 03/02/2025 11:10 AM EDT [facility] [address] [place] [id number] Abraham Pimentel MD Venous ulcer-leg syndrome, bilateral (CMS-HCC) (Primary Dx); PAD (peripheral artery disease) 03/02/2025 Travel 02/21/2025 Travel 02/14/2025 5:25 PM EDT - 02/18/2025 9:03 AM EDT Hospital Encounter [address] Acute [address] [place] [address] Junior Lee MD Surgical wound present (Primary Dx); 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 ([facility]); Venous stasis ulcer of left lower extremity (CMS-HCC); 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 ([facility]) Discharge Disposition: [facility] Facility-Medicare Cert 02/14/2025 Travel 02/14/2025 Telephone [facility] [address] [place] [address] Yvonne Simpson ADMISSION ORDERS NEED 02/12/2025 Travel 02/11/2025 6:20 PM EDT - 02/14/2025 4:20 PM EDT Hospital Encounter [facility] [address] [place] [address] Sergio Santos DO Asif, Muhamid M, MD Shah, Jagruti Nimit, MD Sepsis, due to unspecified organism, unspecified whether acute organ dysfunction present ([facility]) (Primary Dx); Pneumonia of left lower lobe due to infectious organism; Surgical site infection; KACEY (acute kidney injury) ([facility]) Discharge Disposition: [facility] 02/11/2025 Travel 01/30/2025 10:35 AM EST - 02/01/2025 11:39 AM EST Hospital Encounter [facility] [address] [place] [address] Mary Mcnally MD Gill, Kaleem U, MD Unable to ambulate (Primary Dx); Failure to thrive in adult Discharge Disposition: [facility]-Medicare Cert 01/30/2025 Travel 01/24/2025 5:06 PM EST Anesthesia Event [facility] [address] [facility] [place] [address] Mia Ramirez MD Kileny, Joel L, MD 01/24/2025 4:45 PM EST - 01/24/2025 6:30 PM EST Surgery [facility] [address] [facility] [place] [id number] Abraham Pimentel MD AMPUTATION BELOW KNEE [[id number] (CPT )] 01/24/2025 Travel 01/23/2025 Travel 01/21/2025 Orders Only [facility] [address] [place] [address] Transcribe, Orders Support User Pain (Primary Dx) 01/20/2025 10:59 PM EST - 01/26/2025 5:51 PM EST Hospital Encounter [facility] [facility] [address] [place] [address] Magdiel Thomas, Discharge Disposition: Home Health 01/20/2025 11:30 AM EST Ancillary Procedure [facility] [address] [place] [address] Pain from Last 3 Months Immunizations Immunization Administration Dates Next Due COVID-19 Vaccine, vector-nr, rS-Ad26, PF, 0.5mL 02/06/2021 Influenza High Dose Preserva tive Free IM 08/29/2024,11/21/2020,09/26/2019,09/06 Influenza, High-dose, Quadrivalent 08/26,08/27/2022,08/27/2021,09/21,09/15/2016 Influenza, Injectable, Quadrivalent 11/22/2020 Pneumococcal Conjugate 13-Valent 09/10/2015 Pneumococcal Polysaccharide 05/01/2016, 6 Tuberculin Skin Test; Unspec ified Formulation 02/10/2025,02/01/2025 Zoster Vaccine Recombinant 08/28/2023,05/27/2023 Family History Medical History Relation Name Comments COPD Father Cancer Mother Relation Name Status Comments Father Mother Social History Tobacco Use Types Packs/Day Years Used Date Smoking Tobacco: Never Smokeless Tobacco: Never Tobacco Cessation:Counseling Given: Not Answered Alcohol Use Standard Drinks/Week Comments Yes 0 (1 standard drink = 0.6 oz pur e alcohol) occasionally vLex Utilities Answer Date Recorded In the past 12 months has th e electric, gas, oil, or water company threatened to shut off services in your home? No 02/14/2025 Social Connection and Isolation Panel [NHANES] A nswer Date Recorded In a typical week, how many times do you talk on the phone with family, friends, or neighbors? Three times a week 02/12/2025 How often do you get togethe r with friends or relatives? Three times a week 02/12/2025 How often do you attend chur ch or synagogue services? Never 02/12/2025 Do you belong to any clubs o r organizations such as hinduism groups, unions, fraternal or athletic groups, or school groups? No 02/12/2025 How often do you attend meet ings of the clubs or organizations you belong to? Never 02/12/2025 Are you , , di vorced, , never , or living with a partner? 02/12/2025 AUDIT-C Answer Date Recorded Q1: How often do you have a drink containing alc ohol? Monthly or less 02/14/2025 Q2: How many drinks containi ng alcohol do you have on a typical day when you are drinking? 1 or 2 02/14/2025 Q3: How often do you have si x or more drinks on one occasion? Never 02/14/2025 Overall Financial Resource Strain (CARDIA) Answe r Date Recorded How hard is it for you to pa y for the very basics like food, housing, medical care, and heating? Not very hard 02/12/2025 PHQ-2 Answer Date Recorded Total Score 6 02/14/2025 [facility] - Occupational Stress Questionnaire Answer Date Recorded Do you feel stress - tense, restless, nervous, or anxious, or unable to sleep at night because your mind is troubled all the time - these days? To some extent 02/12/2025 Exercise Vital Sign Answer Date Recorde d On average, how many days pe r week do you engage in moderate to strenuous exercise (like a brisk walk)? 0 days 02/12/2025 On average, how many minutes do you engage in exercise at this level? 0 min 02/12/2025 PRAPARE - Transportation Answer Date Re corded In the past 12 months, has l ack of transportation kept you from medical appointments or from getting medications? No 01/28 In the past 12 months, has l ack of transportation kept you from meetings, work, or from getting things needed for daily living? No 02/14/2025 Housing Instability Answer Date Recorde d Are you worried or concerned that in the next two months you may not have stable housing that you own, rent or stay in as a part of a household? No 02/14/2025 Childcare Answer Date Recorded Do problems getting child ca re make it difficult for you to work or study? No 02/12/2025 Employment Answer Date Recorded Do you need help finding a [facility] and/or a training program? No 02/12/2025 Hunger Screening Answer Date Recorded Within the past 12 months we worried whether our food would run out before we got money to buy more. Never True 03/02/2025 Within the past 12 months th e food we bought just didn't last and we didn't have money to get more. Never True 03/02/2025 Purpose - Life Answer Date Recorded I have a purpose and direction in my life. Agree 02/12/2025 Sex and Gender Information Value Date Recorded Sex Assigned at Not on file Legal Sex Male 11:21 AM EDT Gender Identity Not on file Sexual Orientation Not on file Last Filed Vital Signs Vital Sign Reading Time Taken Comments Blood Pressure 124/66 03/02/2025 10:47 AM EDT Pulse 82 03/02/2025 10:47 AM EDT Temperature 36.3 C (97.3 F) 03/02/2025 10:47 AM EDT Respiratory Rate 14 02/18/2025 3:00 AM EDT Oxygen Saturation 97% 03/02/2025 10:47 AM EDT Inhaled Oxygen Concentration - - Weight 95.3 kg (210 lb) 03/02/2025 10:47 AM EDT Height 182.9 cm (6') 02/15/2025 11:23 AM EDT Body Mass Index 28.48 02/15/2025 11:23 AM EDT Plan of Treatment Health Maintenance Due Date Last Done Comments DTaP,Tdap and Td Vaccines (1 - Tdap) 1966 Fall Risk Screening 2012 COVID-19 Vaccine (2023-2 5 season) 2025 08/29/2024, 11/20/2021, 02/06/2021 Influenza Vaccine 07/31/2025 08/29/2024, , 08/27/2022, Additional history exists Depression Screening 02/14/2026 02/14/2025 Tobacco Screening 03/02/2026 03/02/2025 Zoster (Shingles) Vaccine Completed 08/28/2023, Goals Goal Patient Goal Type Associated Problems Recent Progress Patient-Stated? Author return to [facility] Yes Dahiana Valadez LSW Note: Evaluation of progress towards goal: return to [place] for continued therapy Medical Devices Not on file Procedures Procedure Name Priority Date/Time Associated Diagnosis Comments DNR PHYSICIAN ORDER REPORT (SCANNED INTO EHR) 03/27/2025 3:57 PM EDT DNR PHYSICIAN ORDER REPORT (SCANNED INTO EHR) 02/23/2025 11:02 AM EDT CBC WITH AUTO DIFFERENTIAL Routine 02/18/2025 7:15 AM EDT COMPREHENSIVE METABOLIC PANEL Routine 02/18/2025 7:15 AM EDT MAGNESIUM Routine 02/18/2025 7:15 AM EDT CBC WITH AUTO DIFFERENTIAL Routine 02/17/2025 5:31 AM EDT COMPREHENSIVE METABOLIC PANEL Routine 02/17/2025 5:31 AM EDT MAGNESIUM Routine 02/17/2025 5:[address] ABDOMEN AND PELVIS W CONT Routine 02/16/2025 11:51 AM EDT CBC WITH AUTO DIFFERENTIAL Routine 02/16/2025 4:47 AM EDT COMPREHENSIVE METABOLIC PANEL Routine 02/16/2025 4:47 AM EDT MAGNESIUM Routine 02/16/2025 4:47 AM EDT MAGNESIUM Routine 02/15/2025 3:26 PM EDT BLOOD CULTURE STAT 02/15/2025 2:04 PM EDT BLOOD CULTURE STAT 02/15/2025 2:00 PM EDT FOLATE Add-On 02/15/2025 7:23 AM EDT FERRITIN Add-On 02/15/2025 7:23 AM EDT IRON AND TIBC Add-On 02/15/2025 7:23 AM EDT VITAMIN B12 Add-On 02/15/2025 7:23 AM EDT PROCALCITONIN Add-On 02/15/2025 7:23 AM EDT CBC WITH AUTO DIFFERENTIAL Routine 02/15/2025 7:23 AM EDT COMPREHENSIVE METABOLIC PANEL Routine 02/15/2025 7:23 AM EDT MAGNESIUM Routine 02/15/2025 7:23 AM EDT VANCOMYCIN, TROUGH Routine 02/14/2025 7: 11 PM EDT PULSE OXIMETRY, SPOT Routine 02/14/2025 5:32 PM EDT PROCALCITONIN Add-On 02/14/2025 5:43 AM EDT CBC WITH AUTO DIFFERENTIAL Routine 02/14/2025 5:43 AM EDT COMPREHENSIVE METABOLIC PANEL Routine 02/14/2025 5:43 AM EDT MAGNESIUM Routine 02/14/2025 5:43 AM EDT MR ANKLE LT WO CONT Routine 02/13/2025 1 2:40 PM EDT DNR PHYSICIAN ORDER REPORT (SCANNED INTO EHR) 02/13/2025 8:19 AM EDT CBC WITH AUTO DIFFERENTIAL Routine 02/13/2025 4:53 AM EDT COMPREHENSIVE METABOLIC PANEL Routine 02/13/2025 4:53 AM EDT MAGNESIUM Routine 02/13/2025 4:53 AM EDT MAGNESIUM STAT 02/12/2025 7:25 PM EDT SUPERFICIAL WOUND CULTURE Routine 02/12/2025 6:19 PM EDT PROCALCITONIN Routine 02/12/2025 12:00 PM EDT BLOOD CULTURE STAT 02/12/2025 10:17 AM EDT BLOOD CULTURE STAT 02/12/2025 10:11 AM EDT LACTATE W/ REFLEX STAT 02/12/2025 7:4 5 AM EDT APTT STAT 02/12/2025 7:45 AM EDT PROTIME & INR STAT 02/12/2025 7:45 AM EDT PROCALCITONIN Routine 02/12/2025 7:45 AM EDT MAGNESIUM Routine 02/12/2025 7:45 AM EDT URINE CULTURE STAT 02/12/2025 5:44 AM EDT POCT NURSING URINE MACROSCOPIC UA Routine 02/12/2025 5:02 AM EDT LACTATE Today 02/11/2025 11:37 PM EDT XR TIBIA FIBULA RT MIN 2 VWS STAT 02/11/2025 8:25 PM EDT XR CHEST 1 VW STAT 02/11/2025 8:11 PM EDT BLOOD CULTURE STAT 02/11/2025 7:45 PM EDT CBC WITH AUTO DIFFERENTIAL STAT 02/11/2025 7:40 PM EDT PROCALCITONIN STAT 02/11/2025 7:40 PM EDT LACTATE W/ REFLEX STAT 02/11/2025 7:4 0 PM EDT COMPREHENSIVE METABOLIC PANEL STAT 02/11/2025 7:40 PM EDT BLOOD CULTURE STAT 02/11/2025 7:40 PM EDT PM ED CRITICAL CARE Routine 02/11/2025 7 :22 PM EDT CBC WITH AUTO DIFFERENTIAL Routine 02/01/2025 5:10 AM EST MAGNESIUM Routine 02/01/2025 5:10 AM EST COMPREHENSIVE METABOLIC PANEL Routine 02/01/2025 5:10 AM EST VITAMIN D 25 HYDROXY Routine 01/31/2025 5:44 AM EST FOLATE Routine 01/31/2025 5:44 AM EST FERRITIN Routine 01/31/2025 5:44 AM EST IRON AND TIBC Routine 01/31/2025 5:44 AM EST VITAMIN B12 Routine 01/31/2025 5:44 AM EST CBC WITH AUTO DIFFERENTIAL Routine 01/31/2025 5:44 AM EST MAGNESIUM Routine 01/31/2025 5:44 AM EST COMPREHENSIVE METABOLIC PANEL Routine 01/31/2025 5:44 AM EST COMPREHENSIVE METABOLIC PANEL STAT 01/30/2025 11:50 AM EST CBC WITH AUTO DIFFERENTIAL STAT 01/30/2025 11:50 AM EST MAGNESIUM Routine 01/26/2025 3:55 AM EST BASIC METABOLIC PANEL Routine 01/26/2025 3:55 AM EST CBC (NO DIFF) Routine 01/26/2025 3:55 AM EST VANCOMYCIN, RANDOM Routine 01/25/2025 10 :42 AM EST VANCOMYCIN, TROUGH Routine 01/25/2025 7: 44 AM EST MAGNESIUM Routine 01/25/2025 4:11 AM EST BASIC METABOLIC PANEL Routine 01/25/2025 4:11 AM EST CBC (NO DIFF) Routine 01/25/2025 4:11 AM EST SURGICAL PATHOLOGY Routine 01/24/2025 5: 37 PM EST MD INJECT NERV BLCK,OTHR PERIPH NERV Routine 01/24/2025 5:31 PM EST CHG SONO GUIDE NEEDLE BIOPSY Routine 01/24/2025 5:31 PM EST ANESTHESIA PERIPHERAL BLOCK Routine 01/24/2025 5:31 PM EST CHG SONO GUIDE NEEDLE BIOPSY Routine 01/24/2025 5:25 PM EST MD INJECTION AA&/STRD FEMORAL NERVE W/IMG GDN Routine 01/24/2025 5:25 PM EST ANESTHESIA PERIPHERAL BLOCK Routine 01/24/2025 5:25 PM EST MD AMPUTATION LOW LEG THRU TIB/FIB 01/24/2025 5:06 PM EST WOUNDS LEG RIGHT Case Notes TANGELA (EPIC 67, GAVE 75) VASC ARTERIAL DOPPLER LOWER BILATERAL MULTI LEVEL/PVR Routine 01/24/2025 3:08 PM EST MAGNESIUM Routine 01/24/2025 4:28 AM EST BASIC METABOLIC PANEL Routine 01/24/2025 4:28 AM EST CBC (NO DIFF) Routine 01/24/2025 4:28 AM EST TYPE AND SCREEN Routine 01/23/2025 4:30 PM EST VANCOMYCIN, RANDOM Routine 01/23/2025 7: 37 AM EST REPEATED ABORH Routine 01/23/2025 4:00 AM EST VANCOMYCIN, TROUGH Routine 01/23/2025 3: 58 AM EST MAGNESIUM Routine 01/23/2025 3:58 AM EST BASIC METABOLIC PANEL Routine 01/23/2025 3:58 AM EST CBC (NO DIFF) Routine 01/23/2025 3:58 AM EST MAGNESIUM Routine 01/22/2025 2:16 PM EST MAGNESIUM Routine 01/22/2025 4:24 AM EST BASIC METABOLIC PANEL Routine 01/22/2025 4:24 AM EST CBC (NO DIFF) Routine 01/22/2025 4:24 AM EST CBC (NO DIFF) STAT 01/21/2025 2:21 AM EST PROTIME & INR STAT 01/21/2025 2:21 AM EST MAGNESIUM STAT 01/21/2025 2:21 AM EST BASIC METABOLIC PANEL STAT 01/21/2025 2:21 AM EST XR FOOT LT MIN 3 VWS Routine 01/20/2025 11:30 AM EST Pain from Last 3 Months Results * DNR Physician Order Report (Scanned Into EHR) (03/27/2025 3:57 PM EDT) Only the most recent of3 resultswithin the time period is included. Narrative 03/27/2025 3:57 PM EDT Ordered by an unspecified provider. us Not In System Ref Prov OUTPATIENT REFERRAL ORDER CELIA Final Result * (ABNORMAL) CBC auto differential (02/18/2025 7:15 AM EDT) Only the most recent of10 resultswithin the time period is included. White Blood Cells 6.6 4.0 - 11.0 X10E9/L 02/18/2025 7:46 AM EDT [facility] RBC count 2.86(L) 4.10 - 5.70 X10E12/L 02/18/2025 7:46 AM EDT [facility] Hemoglobin 8.4(L) 13.0 - 17.0 g/dL 02/18/2025 7:46 AM EDT [facility] Hematocrit 25.8(L) 39 - 49 % 02/18/2025 7:46 AM EDT [facility] MCV 90 80 - 100 fL 02/18/2025 7:46 AM EDT [facility] MCH 29.5 27 - 34 pg 02/18/2025 7:46 AM EDT [facility] MCHC 32.8 32 - 36 g/dL 02/18/2025 7:46 AM EDT [facility] RDW 14.8 11.5 - 15.0 % 02/18/2025 7:46 AM EDT [facility] Platelets 113(L) 150 - 450 X10E9/L 02/18/2025 7:46 AM EDT [facility] MPV 8.4 7 - 12 fL 02/18/2025 7:46 AM EDT [facility] Myelocyte 4.0 % 02/18/2025 8:57 AM EDT [facility] Metamyelocyte 2.0 % 02/18/2025 8:57 AM EDT [facility] Band 1.0 % 02/18/2025 8:57 AM EDT [facility] Seg neutrophil 63.7 % 02/18/2025 8:57 AM EDT [facility] Lymphocyte 9.1 % 02/18/2025 8:57 AM EDT [facility] Monocytes 8.1 % 02/18/2025 8:57 AM EDT [facility] Eosinophil 10.1 % 02/18/2025 8:57 AM EDT [facility] Basophil 2.0 % 02/18/2025 8:57 AM EDT [facility] Nucleated RBC 1.0 0.0 - 1.0 /100 WBC 02/18/2025 8:57 AM EDT [facility] Neutrophils Absolute (M) 4.3 1.5 - 6.6 X10E9/L 02/18/2025 8:57 AM EDT [facility] Lymphocytes Absolute 0.6(L) 1.0 - 3.5 X10E9/L 02/18/2025 8:57 AM EDT [facility] Monocytes Absolute 0.5 0 - 0.9 X10E9/L 02/18/2025 8:57 AM EDT [facility] Eosinophils Absolute 0.7(H) 0.0 - 0.4 X10E9/L 02[facility] Basophils Absolute 0.1 0.0 - 0.2 X10E9/L 02/18/2025 8:57 AM EDT [facility] Polychromasia 1+(A) NONE^NONE 02/18/2025 8:57 AM EDT [facility] Blood / Unknown 02/18/2025 7 :15 AM EDT 02/18/2025 7:16 AM EDT us Almaz Mcpherson ORTHO NURSE-CORNER BEAD OPERATOR LAB BLOOD ORDERABLES Edit ed Result - Final Performing Organization Address City/[facility]/ZIP Co de Phone Number [facility] [address] [place] [address], [address] [place] [id number] * Magnesium (02/18/2025 7:15 AM EDT) Only the most recent of18 resultswithin the time period is included. Magnesium 1.8 1.8 - 2.6 mg/dL 02/18/2025 8:06 AM EDT [facility] PLASMA 02/18/2025 7:15 AM EDT 02/18/2025 7:16 AM EDT us Almaz Ruelasden ORTHO NURSE-CORNER BEAD OPERATOR LAB BLOOD ORDERABLES Lucinda l Result Performing Organization Address [facility] Co de Phone Number [facility] [address] [place] [phone] * (ABNORMAL) Comprehensive metabolic panel (02/18/2025 7:15 AM EDT) Only the most recent of10 resultswithin the time period is included. Sodium 143 134 - 146 mmol/L 02/18/2025 8:06 AM EDT [facility] Potassium, Bld 3.9 3.5 - 5.0 mmol/L 02/18/2025 8:06 AM EDT [facility] Chloride 102 98 - 109 mmol/L 02/18/2025 8:06 AM EDT [facility] CO2 36(H) 22 - 32 mmol/L 02/18/2025 8:06 AM EDT [facility] Anion gap 5 5 - 15 mmol/L 02/18/2025 8:06 AM EDT [facility] BUN 15 5 - 27 mg/dL 02/18/2025 8:06 AM EDT [facility] Creatinine 0.44(L) 0.60 - 1.30 mg/dL 02/18/2025 8:06 AM EDT [facility] Comment:METHOD TRACEABLE TO IDMS STANDARD Glucose 94 65 - 99 mg/dL 02/18/2025 8:06 AM EDT [facility] Calcium 8.4(L) 8.5 - 10.5 mg/dL 02/18/2025 8:06 AM EDT [facility] Total Protein 6.1 6.0 - 8.0 g/dL 02/18/2025 8:06 AM EDT [facility] Albumin 2.8(L) 3.2 - 5.3 g/dL 02/18/2025 8:06 AM EDT [facility] Alkaline Phosphatase 52 39 - 130 U/L 02/18/2025 8:06 AM EDT [facility] AST 22 0 - 41 U/L 02/18/2025 8:06 AM EDT [facility] ALT 16 0 - 40 U/L 02/18/2025 8:06 AM EDT [facility] Total bilirubin 0.2(L) 0.3 - 1.2 mg/dL 02/18/2025 8:06 AM EDT [facility] eGFR (CKD-EPI)non-rac e dependent >90 >59 ml/min/1.7 3sq.m 02/18/2025 8:06 AM EDT [facility] Comment: Reported eGFR is based on the CKD-EPI 2020 equation that does not use a race coefficient. PLASMA 02/18/2025 7:15 AM EDT 02/18/2025 7:16 AM EDT us Almaz Mcpherson ORTHO NURSE-CORNER BEAD OPERATOR LAB BLOOD ORDERABLES Lucinda l Result [employer] [address], [address] [place] [address] * CT abdomen and pelvis with contrast (02/16/2025 11:51 AM EDT) Anatomical Region Laterality Modality Body, Abdomen, Body Covera N/A Compu cristina Tomography 02/16/2025 11:5 6 AM EDT Narrative 02/16/2025 12:09 PM EDT Study: CT abdomen and pelvis with contrast History:Sepsis Protocol:CT abdomen and pelvis with contrast Contrast 100 mL Omnipaque 300 COMPARISON:No prior Findings: Lung bases:Basilar airspace density likely atelectasis. Small left pleural effusion Liver:Normal Spleen:Normal Gallbladder:Multiple gallstones in the gallbladder no pericholecystic fluid or wall thickening Bile ducts:No biliary ductal dilatation Pancreas:Normal Adrenals:Normal Kidneys:1.5 cm hypoechoic hyperdense small mass mid polar posterior cortex of the right kidney. Internal density is 74 Hounsfield units and neoplasm cannot be excluded. Mild dilatation of the left renal pelvis Ureters:Very mild left hydroureter. Bladder:Huber catheter in the bladder. Bladder wall may be thickened and collapsed against the Huber catheter and underlying cystitis cannot be excluded. Bowel:Stomach is normal. Small bowel is nondilated. Large bowel is nondilated. Diverticulosis throughout the sigmoid colon but no active diverticulitis. No CT evidence of appendicitis. Ostomy site left lower quadrant Reproductive organs:Normal size prostate Mesentry:No adenopathy Peritoneum:No free air or free fluid Retroperitoneum:No adenopathy Vessels: No aortic aneurysm. Abdominal wall:No hernia there is some mild body wall edema Bones:Severe levoscoliosis of the thoracolumbar spine. Secondary degenerative changes. IMPRESSION: * Gallbladder:Multiple gallstones in the gallbladder no pericholecystic fluid or wall thickening * 1.5 cm hypoechoic hyperdense small mass mid polar posterior cortex of the right kidney. Internal density is 74 Hounsfield units and neoplasm cannot be excluded. * Huber catheter in the bladder. Bladder wall may be thickened and collapsed against the Huber catheter and underlying cystitis cannot be excluded. * Renal MRI may be helpful for further evaluation All CT scans at this facility use dose modulation, iterative reconstruction, and/or weight based dosing when appropriate to reduce radiation dose to as low as reasonably achievable. Finalized by Yrn Navarro MD on 02/16/2025 12:09 PM Procedure Note Yrn Navarro MD - 02/16/2025 Study: CT abdomen and pelvis with contrast History:Sepsis Protocol:CT abdomen and pelvis with contrast Contrast 100 mL Omnipaque 300 COMPARISON:No prior Findings: Lung bases:Basilar airspace density likely atelectasis. Small left pleuraleffusion Liver:Normal Spleen:Normal Gallbladder:Multiple gallstones in the gallbladder no pericholecysticfluid or wall thickening Bile ducts:No biliary ductal dilatation Pancreas:Normal Adrenals:Normal Kidneys:1.5 cm hypoechoic hyperdense small mass mid polar posterior cortexof the right kidney. Internal density is 74 Hounsfield units and neoplasmcannot be excluded. Mild dilatation of the left renal pelvis Ureters:Very mild left hydroureter. Bladder:Huber catheter in the bladder. Bladder wall may be thickened andcollapsed against the Huber catheter and underlying cystitis cannot beexcluded. Bowel:Stomach is normal. Small bowel is nondilated. Large bowel isnondilated. Diverticulosis throughout the sigmoid colon but no activediverticulitis. No CT evidence of appendicitis. Ostomy site left lowerquadrant Reproductive organs:Normal size prostate Mesentry:No adenopathy Peritoneum:No free air or free fluid Retroperitoneum:No adenopathy Vessels: No aortic aneurysm. Abdominal wall:No hernia there is some mild body wall edema Bones:Severe levoscoliosis of the thoracolumbar spine. Secondarydegenerative changes. IMPRESSION: * Gallbladder:Multiple gallstones in the gallbladder no pericholecysticfluid or wall thickening * 1.5 cm hypoechoic hyperdense small mass mid polar posterior cortex ofthe right kidney. Internal density is 74 Hounsfield units and neoplasmcannot be excluded. * Huber catheter in the bladder. Bladder wall may be thickened andcollapsed against the Huber catheter and underlying cystitis cannot beexcluded. * Renal MRI may be helpful for further evaluation All CT scans at this facility use dose modulation, iterativereconstruction, and/or weight based dosing when appropriate to reduceradiation dose to as low as reasonably achievable. Finalized by Yrn Navarro MD on 02/16/2025 12:09 PM Es Lee DO IMG CT ORDERABLES Final Result * Blood culture #2 (02/15/2025 2:04 PM EDT) Only the most recent of6 resultswithin the time period is included. Specimen Notes SUBOPTIMAL VOLUME OF BLOOD COLLECTED, RESULTS MAY BE AFFECTED. 02/15/2025 2:29 PM EDT [facility] Culture NO GROWTH 5 DAYS 02/20/2025 2:37 PM EDT [facility] Blood Blood / Unknown 02/15/2025 2 :04 PM EDT 02/15/2025 2:29 PM EDT Es Lee DO MICROBIOLOGY - GENERAL ORDERAB LES Final Result Performing Organization Address [facility] Co de Phone Number [facility] [address] [place] [address], [address] [address] * (ABNORMAL) Procalcitonin (02/15/2025 7:23 AM EDT) Only the most recent of5 resultswithin the time period is included. [facility] Procalcitonin 15.22(H) <0.05 ng/mL 02/15/2025 9:44 AM EDT [facility] Comment: NOTE <0.50 ng/mL - Low risk of severe sepsis and/or septic shock. <2.00 ng/mL - Recommend retesting within 6-24 hours. >2.00 ng/mL - High risk of sepsis and/or septic shock. PLASMA 02/15/2025 7:23 AM EDT 02/15/2025 7:24 AM EDT Almaz Mcpherson APRN-[facility] BLOOD ORDERABLES Lucinda l Result Performing Organization Address [facility] Co de Phone Number [facility] [address] [place] [address], [address] [address] * (ABNORMAL) Iron and TIBC (02/15/2025 7:23 AM EDT) Only the most recent of2 resultswithin the time period is included. [facility] Iron 25(L) 50 - 212 ug/dL 02/15/2025 2:03 PM EDT [facility] Tibc-calc only do not order 200(L) 250 - 425 ug/dL 02/15/2025 2:03 PM EDT [facility] Iron Saturation 12(L) 20 - 50 % SATURATION 02/15/2025 2:03 PM EDT [facility] PLASMA 02/15/2025 7:23 AM EDT 02/15/2025 7:24 AM EDT Almaz Mcpherson ORTHO NURSE-CORNER BEAD OPERATOR LAB BLOOD ORDERABLES Lucinda l Result Performing Organization Address City/[facility]/ZIP Co de Phone Number [facility] [address] [place] [address], [address] [address] * Folate (02/15/2025 7:23 AM EDT) Only the most recent of2 resultswithin the time period is included. Folate >25.0 >5.8 ng/mL 02/15/2025 2:24 PM EDT [facility] Comment:NEW REFERENCE RANGE PLASMA 02/15/2025 7:23 AM EDT 02/15/2025 7:24 AM EDT us Almaz Mcpherson ORTHO NURSE-CORNER BEAD OPERATOR LAB BLOOD ORDERABLES Lucinda l Result [facility] [address] [place] [address], [address] [address] * Ferritin (02/15/2025 7:23 AM EDT) Only the most recent of2 resultswithin the time period is included. Ferritin 136 24 - 336 ng/mL 02/15/2025 2:21 PM EDT [facility] PLASMA 02/15/2025 7:23 AM EDT 02/15/2025 7:24 AM EDT us Almaz Mcpherson ORTHO NURSE-CORNER BEAD OPERATOR LAB BLOOD ORDERABLES Lucinda l Result [facility] [address] [place] [phone] * (ABNORMAL) Vitamin B12 (02/15/2025 7:23 AM EDT) Only the most recent of2 resultswithin the time period is included. Vitamin B-12 1,318(H) 180 - 914 pg/mL 02/15/2025 2:25 PM EDT [facility] Serum / Unknown 02/15/2025 7 :23 AM EDT 02/15/2025 7:24 AM EDT Almaz Mcpherson ORTHO NURSE-CORNER BEAD OPERATOR LAB BLOOD ORDERABLES Lucinda l Result Performing Organization Address City/[facility]/ZIP Co de Phone Number [facility] [address] [place] [phone] * Vancomycin, trough To be drawn prior to the 4th dose (02/14/2025 7:11 PM EDT) Only the most recent of3 resultswithin the time period is included. Vancomycin trough 10.9 5.0 - 20.0 ug/mL 02/14/2025 8:49 PM EDT [facility] Blood (PLASMA) 02/14/2025 7: 11 PM EDT 02/14/2025 7:12 PM EDT Almaz Mcpherson ORTHO NURSE-CORNER BEAD OPERATOR LAB BLOOD ORDERABLES Lucinda l Result [facility] [address] [place] [phone] * MR ankle left without contrast (02/13/2025 12:40 PM EDT) Anatomical Region Laterality Modality MSK, Lower Extremities, Ankle, MSK Covera Left Magnetic Resonance 02/13/2025 12:5 7 PM EDT Narrative 02/13/2025 1:05 PM EDT MR LEFT ANKLE CLINICAL INFORMATION: Osteomyelitis, infection COMPARISON: Radiographs left foot 01/20/2025 PROCEDURE: Routine MRI of the ankle performed. Multisequence, multiplanar imaging was obtained. FINDINGS: OSSEOUS STRUCTURES AND JOINTS Bones: No fracture or stress injury, no osteomyelitis. Tibiotalar joint: Mild arthritis, small volume joint fluid. Subtalar joint: Mild arthritis, trace joint fluid. Tarsal joints: Mild arthritis. SOFT TISSUES Muscles: Diffuse fatty atrophy and infiltration of the foot musculature with varying degrees of muscular edema. Tarsal tunnel: Normal. Sinus tarsi: Normal. Plantar fascia: Subtle thickening proximal portion, no tear. TENDONS Achilles tendon: Mild distal Achilles tendinosis, no tear. Posterior tibial tendon: Small volume fluid, no tear. Flexor digitorum longus tendon: Normal. Flexor hallucis longus: Normal. Peroneus longus tendon: Normal. Peroneus brevis tendon: Tendinosis, split tearing. Peroneal retinaculum: Normal. Anterior tibial tendon: Normal. Extensor hallucis longus: Normal. Extensor digitorum longus: Normal. LIGAMENTS Anterior inferior tibiofibular (syndesmotic) ligament: Normal. Posterior inferior tibiofibular (syndesmotic) ligament: Normal. Anterior talofibular ligament: Slightly thickened likely from remote partial injury. Posterior talofibular ligament: Normal. Calcaneofibular ligament: Normal. Deltoid ligament complex: Normal. Spring ligament complex: Normal. Other: No drainable soft tissue abscess. Scattered regions of edema. IMPRESSION: 1. No osteomyelitis, no abscess. 2. Chronic findings as described Finalized by Noé Dewitt MD on 02/13/2025 1:05 PM Procedure Note Noé Dewitt MD - 02/13/2025 MR LEFT ANKLE CLINICAL INFORMATION: Osteomyelitis, infection COMPARISON: Radiographs left foot 01/20/2025 PROCEDURE: Routine MRI of the ankle performed. Multisequence, multiplanarimaging was obtained. FINDINGS: OSSEOUS STRUCTURES AND JOINTS Bones: No fracture or stress injury, no osteomyelitis. Tibiotalar joint: Mild arthritis, small volume joint fluid. Subtalar joint: Mild arthritis, trace joint fluid. Tarsal joints: Mild arthritis. SOFT TISSUES Muscles: Diffuse fatty atrophy and infiltration of the foot musculaturewith varying degrees of muscular edema. Tarsal tunnel: Normal. Sinus tarsi: Normal. Plantar fascia: Subtle thickening proximal portion, no tear. TENDONS Achilles tendon: Mild distal Achilles tendinosis, no tear. Posterior tibial tendon: Small volume fluid, no tear. Flexor digitorum longus tendon: Normal. Flexor hallucis longus: Normal. Peroneus longus tendon: Normal. Peroneus brevis tendon: Tendinosis, split tearing. Peroneal retinaculum: Normal. Anterior tibial tendon: Normal. Extensor hallucis longus: Normal. Extensor digitorum longus: Normal. LIGAMENTS Anterior inferior tibiofibular (syndesmotic) ligament: Normal. Posterior inferior tibiofibular (syndesmotic) ligament: Normal. Anterior talofibular ligament: Slightly thickened likely from remotepartial injury. Posterior talofibular ligament: Normal. Calcaneofibular ligament: Normal. Deltoid ligament complex: Normal. Spring ligament complex: Normal. Other: No drainable soft tissue abscess. Scattered regions of edema. IMPRESSION: 1. No osteomyelitis, no abscess. 2. Chronic findings as described Finalized by Noé Dewitt MD on 02/13/2025 1:05 PM Irwin Naik ORTHO NURSE-CORNER BEAD OPERATOR [facility] MRI ORDERABLES Final Result * (ABNORMAL) Wound culture superficial includes gram stain (02/12/2025 6:19 PM EDT) Gram Stain Result 0 WHITE BLOOD CELLS/LPF 02/12/2025 11:55 PM EDT [facility] Gram Stain Result 0 SQUAMOUS EPITHELIAL CELLS/LPF 02/12/2025 11:55 PM EDT [facility] Gram Stain Result NO ORGANISMS SEEN 02/12/2025 11:55 PM EDT [facility] Culture MODERATE PROTEUS MIRABILIS(A) 02/14/2025 7:58 AM EDT [facility] Culture ALONG WITH RARE NORMAL SKIN ARY 02/14/2025 7:58 AM T [facility] Wound swab / Unknown 02/12/2025 6:19 PM EDT 02/12/2025 9:15 PM EDT Comment:RIGHT~KNEE Narrative Organism Antibiotic Method Susceptibility Proteus Mirabilis Ampicillin BRINA METHOD <=2: Susceptible Proteus Mirabilis AMP/SULBACTAM BRINA METHOD <=2/1: Susceptible Proteus Mirabilis Cefazolin (non-urinary) BRINA METHOD 4: Intermediate Proteus Mirabilis Cefazolin (urinary) BRINA METHOD 4: Susceptible Proteus Mirabilis Ceftriaxone BRINA METHOD <=0.25: Susceptible Proteus Mirabilis Ciprofloxacin BRINA METHOD <=0.06: Susceptible Proteus Mirabilis Gentamicin BRINA METHOD <=1: Susceptible Proteus Mirabilis Levofloxacin BRINA METHOD <=0.12: Susceptible Proteus Mirabilis PIPERACIL/TAZOBACTAM BRINA METHOD <=4: Susceptible us Irwin Naik ORTHO NURSE-CORNER BEAD OPERATOR MICROBIOLOGY - GENERAL O RDERABLES Final Result [facility] [address], [address] [place] [address] * Lactate w/ Reflex (02/12/2025 7:45 AM EDT) Only the most recent of2 resultswithin the time period is included. Lactate w/ Reflex 1.4 0.4 - 2.0 mmol/L 02/12/2025 8:14 AM EDT [facility] Comment: Result did not trigger repeat Lactate, re-order if needed. PLASMA 02/12/2025 7:45 AM EDT 02/12/2025 7:47 AM EDT us Ester Burch ORTHO NURSE-CORNER BEAD OPERATOR LAB BLOOD ORDERABLES Fin al Result [facility] [address] [address], [place] [address] * APTT (02/12/2025 7:45 AM EDT) aPTT 28 26 - 37 sec 02/12/2025 8:11 AM EDT [facility] Comment:NEW REFERENCE RANGE PLASMA 02/12/2025 7:45 AM EDT 02/12/2025 7:47 AM EDT Ester Burch ORTHO NURSE-CORNER BEAD OPERATOR LAB BLOOD ORDERABLES Fin al Result Performing Organization Address [facility] Co de Phone Number [address] [address] * (ABNORMAL) Protime & INR (02/12/2025 7:45 AM EDT) Only the most recent of2 resultswithin the time period is included. Protime 13.6(H) 9.8 - 13.2 sec 02/12/2025 8:11 AM EDT [facility] Comment:NEW REFERENCE RANGE Inr 1.2 0.9 - 1.2 02/12/2025 8:11 AM EDT [facility] PLASMA 02/12/2025 7:45 AM EDT 02/12/2025 7:47 AM EDT Ester Jose G Kiersten ORTHO NURSE-CORNER BEAD OPERATOR LAB BLOOD ORDERABLES Fin al Result Performing Organization Address [facility]/ZIP Co de Phone Number [address] [address] * (ABNORMAL) Urine culture (02/12/2025 5:44 AM EDT) Culture >100,000 ORGANISMS/mL PROTEUS MIRABILIS(A) 02/16/2025 11:35 AM EDT [facility] Culture 50,000 to 100,000 ORGANISMS/mL MORGANELLA MORGANII(A) 02/16/2025 11:35 AM EDT [facility] Culture <10,000 ORGANISMS/mL NORMAL URO GENITAL ARY 02/16/2025 11:35 AM EDT [facility] Urine Urine specimen collection, clean catch / Unknown 02/12/2025 5:44 AM EDT 02/12/2025 10:06 AM EDT Narrative Organism Antibiotic Method Susceptibility Proteus Mirabilis Ampicillin BRINA METHOD <=2: Susceptible Proteus Mirabilis AMP/SULBACTAM BRINA METHOD <=2/1: Susceptible Proteus Mirabilis Cefazolin (non-urinary) BRINA METHOD 8: Resistant Proteus Mirabilis Cefazolin (urinary) BRINA METHOD 8: Susceptible Proteus Mirabilis Ceftriaxone BRINA METHOD <=0.25: Susceptible Proteus Mirabilis Ciprofloxacin BRINA METHOD <=0.06: Susceptible Proteus Mirabilis Gentamicin BRINA METHOD <=1: Susceptible Proteus Mirabilis Levofloxacin BRINA METHOD <=0.12: Susceptible Proteus Mirabilis Nitrofurantoin BRINA METHOD 128: Resistant Proteus Mirabilis PIPERACIL/TAZOBACTAM BRINA METHOD <=4: Susceptible Proteus Mirabilis TRIMETH/SULFAMETHOXAZOLE BRINA METHOD <=19: Susceptible Morganella Morganii Ceftriaxone BARRIENTOS GLASS METHOD Susceptible Morganella Morganii Cefepime BARRIENTOS GLASS METHOD Susceptible Morganella Morganii Ampicillin BRINA METHOD >=32: Resistant Morganella Morganii Cefazolin (non-urinary) BRINA METHOD >=32: Resistant Morganella Morganii Cefazolin (urinary) BRINA METHOD >=32: Resistant Morganella Morganii Ciprofloxacin BRINA METHOD <=0.06: Susceptible Morganella Morganii Gentamicin BRINA METHOD <=1: Susceptible Morganella Morganii Levofloxacin BRINA METHOD <=0.12: Susceptible Morganella Morganii Nitrofurantoin BRINA METHOD 128: Resistant Morganella Morganii PIPERACIL/TAZOBACTAM BRINA METHOD <=4: Susceptible Morganella Morganii TRIMETH/SULFAMETHOXAZOLE BRINA METHO D <=12/18: Susceptible us Sergio Santos DO MICROBIOLOGY - GENERAL ORDERABLE S Final Result [facility] [address] [facility], [address] [place] [address] * (ABNORMAL) POCT Nursing Urine Macroscopic UA (02/12/2025 5:02 AM EDT) Specific gravity GIOVANI 1.010 1.003 - 1.035 02/12/2025 5:52 AM EDT [facility] Leukocyte esterase GIOVANI MODERATE(A) Negative^ Negative 02/12/2025 5:52 AM EDT [facility] Nitrite GIOVANI Positive(A) Negative^ Negative 02/12/2025 5:52 AM EDT [facility] Ph >=9.0 5.0 - 8.5 02/12/2025 5:52 AM EDT [facility] Protein GIOVANI >=300(A) Negative^ Negative mg/dL 02/12/2025 5:52 AM EDT [facility] Urine glucose GIOVANI Negative Negative^ Negative mg/dL 02/12/2025 5:52 AM EDT [facility] Ketones GIOVANI Negative Negative^ Negative mg/dL 02/12/2025 5:52 AM EDT [facility] Urobilinogen GIOVANI 0.2 <1.1 eu/dL 02/12/2025 5:52 AM EDT [facility] Bilirubin GIOVANI Negative Negative^ Negative 02/12/2025 5:52 AM EDT [facility] Hemoglobin GIOVANI Trace(A) Negative^ Negative 02/12/2025 5:52 AM EDT [facility] Urine / Unknown 02/12/2025 5 :02 AM EDT 02/12/2025 5:52 AM EDT us Fina Webster MD POINT OF CARE TEST ORDERABLES Final Result [address] [address] * Lactate (02/11/2025 11:37 PM EDT) Lactate 1.3 0.4 - 2.0 mmol/L 02/11/2025 11:59 PM EDT [facility] PLASMA 02/11/2025 11:3 7 PM EDT 02/11/2025 11:41 PM EDT us Sergio Santos DO LAB BLOOD ORDERABLES Final Resul t [address] [address] * X-ray tibia fibula right minimum 2 views (02/11/2025 8:25 PM EDT) Anatomical Region Laterality Modality Lower Extremities, MSK, Lower Leg Right Computed Radiography 02/11/2025 8:28 PM EDT Narrative 02/11/2025 8:29 PM EDT Exam: 2 views of the right lower leg dated 02/11/2025. HISTORY: Right lower leg amputated 2 weeks ago. Clinical concern for osteomyelitis. COMPARISON: None. IMPRESSION: No radiographic evidence for osteomyelitis in the stump of the right tibia and right fibula. Generalized osteopenia. No soft tissue gas. Finalized by Ronda Calvillo MD on 02/11/2025 8:29 PM Procedure Note Ronda Calvillo MD - 02/11/2025 Exam: 2 views of the right lower leg dated 02/11/2025. HISTORY: Right lower leg amputated 2 weeks ago. Clinical concern forosteomyelitis. COMPARISON: None. IMPRESSION: No radiographic evidence for osteomyelitis in the stump of the right tibiaand right fibula. Generalized osteopenia. No soft tissue gas. Finalized by Ronda Calvillo MD on 02/11/2025 8:29 PM Sergio Santos DO IMG DIAGNOSTIC IMAGING ORDERABLE S Final Result * X-ray chest 1 view (02/11/2025 8:11 PM EDT) Anatomical Region Laterality Modality Body, Chest N/A Computed Radiogr aphy 02/11/2025 8:18 PM EDT Narrative 02/11/2025 8:20 PM EDT CLINICAL INFORMATION: Sepsis COMPARISON: Chest radiograph dated 12/05/2020. VIEWS: 1. FINDINGS: Low lung volumes. Left basilar infiltrate. Right basilar atelectasis. Cardiac and mediastinal shadows are normal. No significant pleural effusions. No pneumothorax. No free air below the diaphragm. Severe degenerative changes of bilateral shoulder joints. 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 IMPRESSION: Low lung volumes. Left basilar infiltrate. Right basilar atelectasis. Finalized by Ronda Calvillo MD on 02/11/2025 8:20 PM Procedure Note Ronda Calvillo MD - 02/11/2025 CLINICAL INFORMATION: Sepsis COMPARISON: Chest radiograph dated 12/05/2020. VIEWS: 1. FINDINGS: Low lung volumes. Left basilar infiltrate. Right basilar atelectasis. Cardiac and mediastinal shadows are normal. No significant pleuraleffusions. No pneumothorax. No free air below the diaphragm. Severedegenerative changes of bilateral shoulder joints. 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 IMPRESSION: Low lung volumes. Left basilar infiltrate. Right basilar atelectasis. Finalized by Ronda Calvillo MD on 02/11/2025 8:20 PM Sergio Santos DO IMG DIAGNOSTIC IMAGING ORDERABLE S Final Result * Critical Care (02/11/2025 7:22 PM EDT) Narrative Sergio Santos DO - 02/11/2025 7:22 PM EDT Sergio Santos DO 02/17/2025 4:38 AM Critical Care Performed by: Sergio Santos DO Authorized by: Sergio Santos DO Critical care provider statement: Critical care time (minutes): 30 Critical care time was exclusive of: Separately billable procedures and treating other patients Critical care was necessary to treat or prevent imminent or life-threatening deterioration of the following conditions: Sepsis Critical care was time spent personally by me on the following activities: Development of treatment plan with patient or surrogate, discussions with primary provider, evaluation of patient's response to treatment, examination of patient, interpretation of cardiac output measurements, obtaining history from patient or surrogate, ordering and performing treatments and interventions, ordering and review of laboratory studies, ordering and review of radiographic studies, pulse oximetry and re-evaluation of patient's condition I assumed direction of critical care for this patient from another provider in my specialty: no Care discussed with: admitting provider us Sergio Santos DO PROCEDURE/MINOR SURGICAL ORDERAB LES Final Result * (ABNORMAL) Vitamin D 25 hydroxy (01/31/2025 5:44 AM EST) Vit D, 25-Hydroxy 27.3(L) 30 - 100 ng/mL 01/31/2025 6:57 PM [facility] Comment: Vitamin D status 25 [place] Vitamin D Deficiency <20 ng/mL Insufficiency 20-29 ng/mL Sufficiency 30-100 ng/mL Toxicity >100 ng/mL NOTE: A pediatric reference range has not been established by the remote recruiter of this kit. The [employer] recommends a Vitamin D level of = or >20ng/mL in infants and children. PLASMA 01/31/2025 5:44 AM EST 01/31/2025 6:07 AM EST us Irwin Naik ORTHO NURSE-CORNER BEAD OPERATOR LAB BLOOD ORDERABLES Fin al Result [facility] [address] [facility], [address] [place] [address] * (ABNORMAL) CBC without diff (01/26/2025 3:55 AM EST) Only the most recent of6 resultswithin the time period is included. White Blood Cells 5.3 4.0 - 11.0 X10E9/L 01/26/2025 4:45 AM [facility] RBC count 3.24(L) 4.10 - 5.70 X10E12/L 01/26/2025 4:45 AM [facility] Hemoglobin 9.7(L) 13.0 - 17.0 g/dL 01/26/2025 4:45 AM [facility] Hematocrit 29.7(L) 39 - 49 % 01/26/2025 4:45 AM [facility] MCV 92 80 - 100 fL 01/26/2025 4:45 AM [facility] MCH 29.9 27 - 34 pg 01/26/2025 4:45 AM [facility] MCHC 32.7 32 - 36 g/dL 01/26/2025 4:45 AM [facility] RDW 14.0 11.5 - 15.0 % 01/26/2025 4:45 AM [facility] Platelets 134(L) 150 - 450 X10E9/L 01/26/2025 4:45 AM [facility] MPV 7.3 7 - 12 fL 01/26/2025 4:45 AM [facility] Blood / Unknown 01/26/2025 3 :55 AM EST 01/26/2025 3:56 AM EST us Jeyson Martinez MD LAB BLOOD ORDERABLES Final Re sult AMANDA [facility] [address] [place] [address] * (ABNORMAL) Basic Metabolic Panel (01/26/2025 3:55 AM EST) Only the most recent of6 resultswithin the time period is included. Sodium 141 134 - 146 mmol/L 01/26/2025 5:01 AM [facility] Potassium, Bld 4.0 3.5 - 5.0 mmol/L 01/26/2025 5:01 AM [facility] Chloride 102 98 - 109 mmol/L 01/26/2025 5:01 AM [facility] CO2 32 22 - 32 mmol/L 01/26/2025 5:01 AM [facility] Anion gap 7 5 - 15 mmol/L 01/26/2025 5:01 AM [facility] BUN 13 5 - 27 mg/dL 01/26/2025 5:01 AM [facility] Creatinine 0.65 0.60 - 1.30 mg/dL 01/26/2025 5:01 AM [facility] Comment:METHOD TRACEABLE TO IDMS STANDARD Glucose 139(H) 65 - 99 mg/dL 01/26/2025 5:01 AM [facility] Calcium 8.2(L) 8.5 - 10.5 mg/dL 01/26/2025 5:01 AM EST [facility] eGFR (CKD-EPI)non-ra ce dependent >90 >59 ml/min/1.7 3sq.m 01/26/2025 5:01 AM EST [facility] Comment: Reported eGFR is based on the CKD-EPI 2020 equation that does not use a race coefficient. PLASMA 01/26/2025 3:55 AM EST 01/26/2025 3:56 AM EST Jeyson Martinez MD LAB BLOOD ORDERABLES Final Re sult Performing Organization Address [facility] Co de Phone Number [facility] [address] [place] [address], [place] [phone] * (ABNORMAL) Vancomycin, random (01/25/2025 10:42 AM EST) Only the most recent of2 resultswithin the time period is included. Vancomycin 45.7(H) 5.0 - 40.0 ug/mL 01/25/2025 11:44 AM EST [facility] Comment: Peak 30-40 ug/mL Trough 5-20 ug/ml PLASMA 01/25/2025 10:4 2 AM EST 01/25/2025 10:43 AM EST Jeyson Martinez MD LAB BLOOD ORDERABLES Final Re sult Performing Organization Address [facility] Co de Phone Number [facility] [address] [place] [address], [address] [address] * Surgical Pathology (01/24/2025 5:37 PM EST) Tissue (Leg, Right) 01/24/2025 5:37 PM EST Comment:Pre-op diagnosis: WOUNDS LEG RIGHT Narrative COPATH - 01/31/2025 1:22 PM EST [facility] [address] [place] [address] Surgical Pathology Consultation Patient Name:ELPIDIO LEI:1945 (Age: 79)Gender:MTaken:01/24/2025Reported:01/31/2025Physician(s):Abraham Pimentel MD ( )Copy To: Rec. #:[id number]: #[id number] Final Pathologic Diagnosis Right leg, below-knee amputation: Ulceration with gangrenous necrosis and chronically inflamed granulation tissue. Underlying bone with degenerative changes, negative for osteomyelitis. Adjacent intact skin with parakeratosis and focal intracorneal blister. Arteries showing mild intimal fibroatheromatous thickening with focal calcifications. Viable skin and soft tissue resection margin showing patchy mild chronic inflammatory infiltrates involving dermis. Viable bone margin, negative for osteomyelitis. Report Electronically Signed Out ao/01/31/2025bal Cortes MD Interpretation [email or web address] [address], License number: [id number]. Clinical History Wounds leg right. Gross Description Received fresh labeled DO, right below the knee amputation is a right below the knee amputation specimen received transected at the proximal tibia and fibula margins. The specimen is resected with first, third, fourth and fifth digits however the second digit is previously resected. The foot is 26 cm proximal-distal, 6 cm medial-lateral and 8.5 cm dorsal- plantar. The attached lower portion of leg is 27 x 7.8 x 6.5 cm. The specimen is resected with overlying banks wrinkled skin however the proximal 9.5 cm exhibits exposed underlying bone/soft tissue. There is a pink-banks ulcerated area extending over the majority of the dorsal aspect of the 1st-3rd digits, 8 cm in greatest dimension, situated 25 cm from the proximal skin/soft tissue resection margin. There is additional ulcer on the medial heel, 3 cm in greatest dimension, situated 17 cm from the proximal skin/soft tissue resection margin. The entirety of the plantar surface is nodular and crusted. The bone underlying the first digit is sectioned to reveal banks slightly softened, spongy cut surfaces. Bone underlying first digit the vasculature is palpated to reveal elastic cut surfaces with no prominent calcifications identified. Cassettes A bone of first digit, decalcified B soft tissue from ulcerated areas C vasculature D proximal bone marrow E proximal skin/soft tissue resection margin, en face (5,ss,[id number], m6.1) . [facility]/01/25/2025WAK Specimen(s) Received Right below the knee amputation (BKA) Fee Codes(s): 1; 96539, 11839 us Abraham Pimentel MD PATHOLOGY/CYTOLOGY ORDERABLES Final Result COPATH * PM PERIPHERAL BLOCK, CHG SONO GUIDE NEEDLE BIOPSY, MD INJECT NERV BLCK,OTHR PERIPH NERV (:31 PM EST) Narrative Mia Ramirez MD - 01/24/2025 5:31 PM EST Mia Ramirez MD 01/24/2025 5:32 PM Peripheral Block Patient Location: Pre-op Start Time: 01/24/2025 4:43 PM End Time: 01/24/2025 4:52 PM Reason for Block: Surgical/Post-op Pain Management and At Surgeon's Request IV In situ: Peripheral General Information and Staff: Service Provider: Mia Ramirez MD Placed by: Mia Ramirez MD Checklist: Patient Identified, IV Checked, Site Marked, Risks and Benefits Discussed, Surgical Consent, Monitors and Equipment Checked, Pre-op Evaluation and Timeout Performed Fire Risk Assessment Score: 1 Positioning and Technique: Patient Position: Supine Prep: Chlorhexidine Monitoring: Heart Rate, Nuclear Fuels Reclamation Engineer, Continuous Pulse Ox and Blood Pressure Oxygen Source: Nasal Cannula Location: Popliteal Laterality: Right Injection Technique: Single Shot Number of Attempts: 1 Placement Technique: Ultrasound Guided Anesthesia Block Medication Given: bupivacaine PF (MARCAINE) injection 0.5% - infiltration 20 mL - 01/24/2025 4:52:00 PM Anxiolytics Given: Yes Needle: Needle Type: Stimuplex Needle Gauge: 20 G Needle Length: 10 cm Needle Localization: Ultrasound Guidance Test Dose: Negative Assessment: Injection Assessment: Local Visualized Surrounding Nerve on Ultrasound, Incremental Injection, No Paresthesia on Injection, Negative Aspiration for Heme and No S/S intravascular or Intraneural Injection Paresthesia Pain: None Heart Rate Change: No Slow Fractionated Injection: Yes Mia Ramirez MD ANESTHESIA ORDERABLES F inal Result * PM PERIPHERAL BLOCK, MD INJECTION AA&/STRD FEMORAL NERVE W/IMG GDN, CHG SONO GUIDE NEEDLE BIOPSY (01/24/2025 5:25 PM EST) Narrative Mia Ramirez MD - 01/24/2025 5:25 PM EST Mia Ramirez MD 01/24/2025 5:31 PM Peripheral Block Patient Location: Pre-op Start Time: 01/24/2025 4:42 PM End Time: 01/24/2025 4:52 PM Reason for Block: Surgical/Post-op Pain Management and At Surgeon's Request IV In situ: Peripheral General Information and Staff: Service Provider: Mia Ramirez MD Placed by: Mia Ramirez MD Checklist: Patient Identified, IV Checked, Site Marked, Risks and Benefits Discussed, Surgical Consent, Monitors and Equipment Checked, Pre-op Evaluation and Timeout Performed Fire Risk Assessment Score: 1 Positioning and Technique: Patient Position: Supine Prep: Chlorhexidine Monitoring: Heart Rate, Nuclear Fuels Reclamation Engineer, Continuous Pulse Ox and Blood Pressure Oxygen Source: Nasal Cannula Location: Femoral Laterality: Right Injection Technique: Single Shot Number of Attempts: 1 Placement Technique: Ultrasound Guided Anesthesia Block Medication Given: bupivacaine PF (MARCAINE) injection 0.5% - infiltration 20 mL - 01/24/2025 4:52:00 PM Anxiolytics Given: Yes Needle: Needle Type: Stimuplex Needle Gauge: 20 G Needle Length: 10 cm Needle Localization: Ultrasound Guidance Test Dose: Negative Assessment: Injection Assessment: Local Visualized Surrounding Nerve on Ultrasound, Incremental Injection, No Paresthesia on Injection, Negative Aspiration for Heme and No S/S intravascular or Intraneural Injection Paresthesia Pain: None Heart Rate Change: No Slow Fractionated Injection: Yes Mia Ramirez MD ANESTHESIA ORDERABLES F inal Result * Vas art doppler lwr bilat mult lev/PVR (01/24/2025 3:08 PM EST) Anatomical Region Laterality Modality Vascular Bilateral Ultrasound 01/24/2025 3:08 PM EST Narrative 01/25/2025 7:51 PM EST Right: Essentially normal PVR waveform contour at all cuff levels. Calf waveform augmentation noted. PT EDWARD is 1.08; DP EDWARD is 1.10. Essentially normal PPG waveform contour at the digital level. Multiphasic with diastolic flow reversal PT and hyperemic DP artery CW Doppler waveforms. Left: Essentially normal PVR waveform contour at all cuff levels. Calf waveform augmentation noted. PT EDWARD is 1.06; DP EDWARD is 1.11. Essentially normal PPG waveform contour at the digital level. Multiphasic with diastolic flow reversal PT and DP artery CW Doppler waveforms. Conclusions: BILATERAL: Normal lower extremity arterial physiological examination at rest. Recommendations: Any questions prior to finalization, please call the reading physician during normal business hours at the phone number beside their name. Procedure Note Gabbi Ludwig MD - 01/25/2025 Right: Essentially normal PVR waveform contour at all cuff levels. Calfwaveform augmentation noted. PT EDWARD is 1.08; DP EDWARD is 1.10. Essentiallynormal PPG waveform contour at the digital level. Multiphasic withdiastolic flow reversal PT and hyperemic DP artery CW Doppler waveforms. Left: Essentially normal PVR waveform contour at all cuff levels. Calfwaveform augmentation noted. PT EDWARD is 1.06; DP EDWARD is 1.11. Essentiallynormal PPG waveform contour at the digital level. Multiphasic withdiastolic flow reversal PT and DP artery CW Doppler waveforms. Conclusions: BILATERAL: Normal lower extremity arterial physiologicalexamination at rest. Recommendations: Any questions prior to finalization, please call thereading physician during normal business hours at the phone number besidetheir name. us Juli Saxena MD CV VASCULAR ORDERABLES Final Res ult * Type and screen (01/23/2025 4:30 PM EST) ABO O 01/23/2025 5:41 PM [facility] RH Negative 01/23/2025 5:41 PM [facility] Antibody Screen Negative 01/23/2025 5:47 PM [facility] 01/23/2025 4:30 PM EST Juli Saxena MD BLOOD BANK TEST ORDERABLES Edite d Result - Final [facility] [address] [place] [address], [place] * ABO Rh Repeat (01/23/2025 4:00 AM EST) ABO O 01/23/2025 5:05 PM EST [facility] RH Negative 01/23/2025 5:05 PM EST [facility] 01/23/2025 4:00 AM EST Juli Saxena MD BLOOD BANK TEST ORDERABLES Final Result Performing Organization Address [facility] Co de Phone Number [facility] [address] [place] [address], [place] * X-ray foot left minimum 3 views (01/20/2025 11:30 AM EST) us Scanning Provider External IMG DIAGNOSTIC IMAGIN G ORDERABLES Final Result from Last 3 Months Insurance [employer] MEDICARE Advance Directives Documents on File Type Date Recorded Patient Balloon Maker Expl 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 DNR Physician Order 03/27/2025 3:57 PM Durable Power of Environmental Health Inspector 02/23/2025 11:02 AM Living Will 02/22/2025 2:16 PM Advance Directive 02/11/2025 6:21 PM Advan ce Directive 02-11-25 * DNRCCA DNI (Latest Code Status on File) Date Activated Date Inactivated Comments 02/15/2025 8:38 AM 02/18/2025 11:03 AM * Full Code Date Activated Date Inactivated Comments 02/14/2025 5:32 PM 02/15/2025 8:38 AM * Full Code Date Activated Date Inactivated Comments 02/12/2025 11:49 PM 02/14/2025 5:25 PM * DNRCCA DNI Date Activated Date Inactivated Comments 01/31/2025 10:22 AM 02/01/2025 1:58 PM * Full Code Date Activated Date Inactivated Comments 01/30/2025 2:10 PM 01/31/2025 10:21 AM Care Teams Wafer Production Worker Relationship Specialty Start Date End Date Kamryn Rios MD [address] [place] [phone] PCP - General Internal Medicine 02/11/25
--- OUTSIDE RECORDS SUMMARY | 2025-04-19 10:52 | XMS_ITS | Clinical Summary ---
Author Organization [facility] Address [address] [place], [place] [address] Care Team Providers Care Screen Printing Inspector Name Role Phone Quan Guerra Odell Primary Care Provider [phone] Allergies No known active allergies Medications bisoprolol-hydro chlorothiazide (ZIAC) 10-6.25 mg per tabletIndication s:Pancytopenia (HCC),Iron deficiency 06/27/2014 Active citalopram (CELEXA) 40 mg tabletIndication s:Pancytopenia (HCC),Iron deficiency 06/26/2014 Active lisinopril (ZESTRIL, PRINIVIL) 10 mg tabletIndication s:Pancytopenia (HCC),Iron deficiency 06/26/2014 Active cyanocobalamin (VITAMIN B-12) 1,000 mcg tabIndications:P ancytopenia (HCC),Iron deficiency Take 1,000 mcg by mouth once daily. Active Ferrous Sulfate 325 mg (65 mg iron) tabletIndication s:Pancytopenia (HCC),Iron deficiency Take 325 mg by mouth daily with breakfast. Active aspirin 81 mg chewable tabletIndication s:Pancytopenia (HCC),Iron deficiency Take 81 mg by mouth once daily. Active Active Problems Problem Noted Date Diagnosed Date Anemia 09/21/2014 Leukopenia 09/21/2014 Iron deficiency 09/14/2014 Pancytopenia 09/13/2014 Social History Tobacco Use Types Packs/Day Years Used Date Smoking Tobacco: Never Smokeless Tobacco: Never Alcohol Use Standard Drinks/Week Comments Yes 0 (1 standard drink = 0.6 oz pur e alcohol) Sex and Gender Information Value Date Recorded Sex Assigned at Not on file Legal Sex Male 1:37 PM EDT Gender Identity Not on file Sexual Orientation Not on file Last Filed Vital Signs Vital Sign Reading Time Taken Comments Blood Pressure 147/93 03/15/2015 10:00 AM EDT Pulse 72 03/15/2015 10:00 AM EDT Temperature 36.6 C (97.8 F) 03/15/2015 10:00 AM EDT Respiratory Rate - - Oxygen Saturation - - Inhaled Oxygen Concentration - - Weight 113.4 kg (250 lb) 09/21/2014 11:28 AM EDT Height 182.9 cm (6') 03/15/2015 10:00 AM EDT Body Mass Index 33.91 09/21/2014 11:28 AM EDT Plan of Treatment Health Maintenance Due Date Last Done Comments Anxiety Screening 1963 Depression Screening 1963 Hepatitis C Screening 1963 DTaP,Tdap,Td Vaccine (1 - Tdap) 1966 Pneumococcal Vaccine: 50+ (1 of 1 - PCV) 1997 Shingrix Vaccine (1 of 2) 1997 Diabetes Screening 09/14/2017 09/14/2014 RSV Vaccine (1 - 1-dose 75+ series) 2022 Covid-19 Vaccine (1 - season) 2024 Advance Directive Discussion 11/30/2024 Influenza Vaccine (Season Ended) 2025 Procedures Procedure Name Priority Date/Time Associated Diagnosis Comments BASIC METABOLIC PANEL Routine 09/14/2014 10:42 AM EDT Pancytopenia (HCC) Iron deficiency from Last 3 Months or Most Recently Relevant to Health Maintenance Results * (ABNORMAL) BASIC METABOLIC PNL (09/14/2014 10:42 AM EDT) Glucose 87 65 - 100 mg/dL [facility] BUN 19 10 - 25 mg/dL [facility] Creatinine 0.65(L) 0.70 - 1.40 mg/dL [facility] Sodium 136 135 - 146 mmol/L [facility] Potassium 4.3 3.5 - 5.0 mmol/L [facility] Chloride 98 98 - 110 mmol/L [facility] CO2 26 23 - 32 mmol/L [facility] Anion Gap 12 0 - 15 mmol/L [facility] Calcium 9.3 8.5 - 10.5 mg/dL [facility] eGFR- >60 [facility] eGFR-All Other Races >60 . [facility] Comment: eGFR (Estimated GFR) Units of measure: mL/min/1.73 meters squared eGFR is derived from the reexpressed MDRD Study equation using the following parameters: serum creatinine, age, gender and race. The creatinine assay has been calibrated to be traceable to IDMS. An eGFR <60 mL/min/1.73m2 for >3 months is consistent with chronic kidney disease. Refer to KDOQI guidelines for clinical interpretation. Blood specimen (specimen) BLOOD SPECIMEN / Unknown 09/14/2014 10:42 AM EDT 09/14/2014 10:44 AM EDT us Alberto Ngo [facility] Final Result [facility] [address] [place] [address] from Last 3 Months or Most Recently Relevant to Health Maintenance Insurance Care Teams Screen Printing Inspector Relationship Specialty Start Date End Date Quan Guerra PCP - General Family Medicine 09/11/14
--- OUTSIDE RECORDS SUMMARY | 2025-04-19 10:52 | XMS_ITS | Encounter Summary ---
Author Organization [facility] [employer] [facility] tem Address [id number] [address] [place] [address] Care Team Providers Care Dumper Operator Name Role Phone Kamryn Rios MD Primary Care Provider [phone] Reason for Visit * Reason Onset Date Comments Appointment 11/07/2020 reschedule Encounter Details Date Type Department Care Team (Late st Contact Info) Description 11/07/2020 Telephone [facility] [address] [place] [phone] Josy Frank CNA Appointment (reschedule) Social History Tobacco Use Types Packs/Day Years [...] or suspected to have Coronavirus / COVID-19? Unable to assess 11/07/2020 8:37 AM EST documented as of this encounter Plan of Treatment Not on file documented as of this encounter Visit Diagnoses Not on filedocumented in this encounter Additional Health Concerns Infection Onset Date Last Indicated Resolved Time COVID-19 Rule-Out 12/05/2020 12/05/2020 12/06/2020 12:15 PM EST documented as of this encounter Care Teams Dumper Operator Relationship Specialty Start Date End Date Kamryn Rios MD [address], [address] [place] [address] PCP - General Internal Medicine 02/11/25 documented as of this encounter
--- OUTSIDE RECORDS SUMMARY | 2025-04-19 10:52 | XMS_ITS | Encounter Summary ---
Author Organization [facility] [employer] [facility] tem Address [id number] [address] [place] [address] Care Team Providers Care Distribution Analyst Name Role Phone Kamryn Rios MD Primary Care Provider [phone] Encounter Details Date Type Department Care Team (Late st Contact Info) Description 01/10/2021 Telephone [facility] [address] [place] [address] Mary Da Silva, MITCH Social [...] have Coronavirus / COVID-19? No / Unsure 01/11/2021 11:05 AM EST documented as of this encounter Plan of Treatment Not on file documented as of this encounter Visit Diagnoses Not on filedocumented in this encounter Additional Health Concerns Assessment Noted Time PHQ-9 Depression Total Score: 0 12/05/19 21 7:06 PM EST documented as of this encounter Care Teams Distribution Analyst Relationship Specialty Start Date End Date Kamryn Rios MD [address], [address] [place] [address] PCP - General Internal Medicine 02/11/25 documented as of this encounter
--- OUTSIDE RECORDS SUMMARY | 2025-04-19 10:52 | XMS_ITS | Encounter Summary ---
Author Organization [facility] [employer] [facility] tem Address [id number] [address] [place] [address] Care Team Providers Care Pharmacometrician Name Role Phone Kamryn Rios MD Primary Care Provider [phone] Encounter Details Date Type Department Care Team (Late st Contact Info) Description 12/17/2020 Telephone [facility] [address] [place] [address] Mary Da Silva, MITCH Social [...] have Coronavirus / COVID-19? No / Unsure 12/10/2020 4:36 AM EST documented as of this encounter Plan of Treatment Not on file documented as of this encounter Visit Diagnoses Not on filedocumented in this encounter Additional Health Concerns Assessment Noted Time PHQ-9 Depression Total Score: 0 12/05/19 21 7:06 PM EST documented as of this encounter Care Teams Pharmacometrician Relationship Specialty Start Date End Date Kamryn Rios MD [address], [address] [place] [address] PCP - General Internal Medicine 02/11/25 documented as of this encounter
--- OUTSIDE RECORDS SUMMARY | 2025-04-19 10:52 | XMS_ITS | Encounter Summary ---
Author Organization [facility] Address [address] [place] [address] Care Team Providers Care Kier Tender Name Role Phone Ines Cole MD Primary Care Provider [phone] Suzi Moyer NP Unavailable [phone] Encounter Details Date Type Department Care Team (Late st Contact Info) Description 03/09/2024 Clinisync Result Encounter [facility] External Department Unsolicited Abraham Pimentel MD [address], [place] [id number] Social History Tobacco Use Types Packs/Day Years [...] friends or relatives? Patient declined 01/01/2024 Attends Rastafari Services Not on file 01/01 Do you belong to any clubs o r organizations such as islam groups, unions, fraternal or athletic groups, or [...] Recorded Patient Health Questionnaire-2 Score 0 08/26/2023 [facility] - Occupational Stress [...] or rent on time? Patient refused 01/01/20 Number of Places Lived in the Last [...] 12:30 PM EDT Office Visit [facility] [address] [place] [address] Suzi Moyer NP [address] [place] [address] documented as of this encounter Procedures Procedure Name Priority Date/Time Associated Diagnosis Comments ECG 12-LEAD 03/09/2024 10:51 AM EDT documented in this encounter Results * ECG 12-LEAD (03/09/2024 10:51 AM EDT) Anatomical Region Laterality Modality Other 03/09/2024 10:5 1 AM EDT Narrative 03/10/2024 6:55 AM EDT The [address] [address] Electrocardiograph Report Signed Patient: KJ LEI MR#: [id number] : 1945 Acct:[id number] Age/Sex: 78 / M ADM Date: 03/09/24 Loc: PST Attending Dr: Abraham Pimentel M.D. Ordering Physician: Abraham Pimentel M.D. Date of Service: 03/09/24 Procedure(s): ECG 12 lead Accession Number(s): [id number] cc: The [facility] Test Date: 2024-03-09 Pat Name: KJ LEI Department: Room: - Gender: Male Elevator Operator Freight: : 1945 Requested By: [id number] Order Number: [id number] Reading MD: NIK ANDRADE Measurements Intervals Lynn Rate: 61 P: 67 VT: 208 QRS: 71 QRSD: 89 T: 35 QT: 416 QTc: 420 Interpretive Statements SINUS RHYTHM WITH OCCASIONAL SUPRAVENTRICULAR PREMATURE COMPLEXES Compared to ECG 12/03/2021 14:19:31 Possible ischemia no longer present Electronically Signed On 03-10-2024 6:54:59 EDT by NIK ANDRADE Dictated By: Nik Andrade D.O. Signed By: 03/10/24 0655 DD/ 1051 TD/TT: Pressfitter: Procedure Note Radiology, Radiologist, MD - 03/10/2024 [place] [address] Electrocardiograph Report Signed Patient: KJ LEI LMR#: [id number] : 1945cct:[id number] Age/Sex: 78 / MADM Date: 03/09/24 Loc: [facility] Attending Dr: Arbaham Pimentel M.D. Ordering Physician: Abraham Pimentel M.D. Date of Service: 03/09/24 Procedure(s): ECG 12 lead Accession Number(s): [id number] cc: [facility] Test Date: 2024-03-09 Pat Name: KJ LEI Department: Room: - Gender: Male Elevator Operator Freight: : 1945 Requested By: [id number] Order Number: [id number] Reading MD: NIK ANDRADE Measurements Intervals Lynn Rate: 61 P: 67 VT: 208 QRS: 71 QRSD: 89 T: 35 QT: 416 QTc: 420 Interpretive Statements SINUS RHYTHM WITH OCCASIONAL SUPRAVENTRICULAR PREMATURE COMPLEXES Compared to ECG 12/03/2021 14:19:31 Possible ischemia no longer present Electronically Signed On 03-10-2024 6:54:59 EDT by NIK ANDRADE Dictated By: Nik Andrade D.O. Signed By:03/10/24 0655 DD/ 1051 TD/TT: Pressfitter: us Abraham Pimentel MD [facility] Final Resu lt documented in this encounter Visit Diagnoses Not on filedocumented in this encounter Additional Health Concerns Assessment Noted Time PHQ-9 Depression Total Score: 0 02/23/20 24 1:00 PM EDT documented as of this encounter Care Teams Kier Tender Relationship Specialty Start Date End Date Ines Cole MD [address] [facility] [address] [place], [place] [phone] PCP - General Family Medicine 12/17/23 Suzi Moyer NP [address] [facility] [place], [place] [phone] Nurse Practitioner Family Medicine 12/17/23 documented as of this encounter
--- OUTSIDE RECORDS SUMMARY | 2025-04-19 10:52 | XMS_ITS | Encounter Summary ---
Author Organization [facility] tem Address [facility] [id number] [address] [place] [address] Care Team Providers Care Manager Surgical Name Role Phone Kamryn Rios MD Primary Care Provider [phone] Encounter Details Date Type Department Care Team (Late st Contact Info) Description 09/24/2020 Telephone [facility] [address] [place] [address] Mary Da Silva, MITCH Social [...] have Coronavirus / COVID-19? Unable to assess 09/21/2020 10:40 AM ED T documented as of this encounter Plan of Treatment Not on file documented as of this encounter Visit Diagnoses Not on filedocumented in this encounter Additional Health Concerns Infection Onset Date Last Indicated Resolved Time COVID-19 Rule-Out 12/05/2020 12/05/2020 12/06/2020 12:15 PM EST documented as of this encounter Care Teams Manager Surgical Relationship Specialty Start Date End Date Kamryn Rios MD [address], [address] [place] [address] PCP - General Internal Medicine 02/11/25 documented as of this encounter
--- OUTSIDE RECORDS SUMMARY | 2025-04-19 10:52 | XMS_ITS | Encounter Summary ---
Author Organization [facility] Address [address] [place] [address] Care Team Providers Care Comsec Manager Name Role Phone America Childs MD Primary Care Provider [phone] Suzi Moyer NP Unavailable Encounter Details Date Type Department Care Team [...] friends or relatives? Patient declined 01/01/2024 Attends Evangelical Services Not on file 01/01 Do you [...] Recorded Patient Health Questionnaire-2 Score 0 08/26/2023 [facility] Occupat ional Health - Occupational Stress [...] place to sleep or slept in a group home (including now)? Patient refused 01/01/2024 Sex and Gender Information Value Date Recorded Sex Assigned at Not on file Legal Sex Male 7:29 PM EDT Gender Identity Not on file Sexual Orientation Not on file documented as of this encounter Plan of Treatment Upcoming Encounters Date Type Department Care Team (Late st Contact Info) Description 09/25/2025 12:30 PM EDT Office Visit [facility] [address] [place] [address] Suzi Moyer NP [address] [place], [place] [id number] documented as of this encounter Procedures Procedure Name Priority Date/Time Associated Diagnosis Comments XR CHEST 2V 03/09/2024 1:07 PM EDT documented in this encounter Results * XR CHEST 2V (03/09/2024 1:07 PM EDT) Anatomical Region Laterality Modality Other 03/09/2024 1:07 PM EDT Narrative 03/09/2024 1:38 [place] [address] XRay Report Signed Patient: KJ LEI MR#: [id number] : 1945 Acct:[id number] Age/Sex: 78 / M ADM Date: 03/09/24 Loc: PST Attending Dr: Abraham Pimentel M.D. Ordering Physician: Abraham Pimentel M.D. Date of Service: 03/09/24 Procedure(s): XR chest 2V Accession Number(s): [id number] cc: AMERICA CHILDS ; Abraham Pimentel M.D. The [address] [address] Patient Name: KJ LEI MRN: [id number] date: 1945 Sex: M Assigned Patient Location: Current Patient Location: [place] Accession/Order Number: [id number] Exam Date: 03/09/2024 11:00 Report Date: 03/09/2024 13:07 At the request of: ABRAHAM PIMENTEL Procedure: XR chest 2V EXAM: XR chest 2V HISTORY: Preop exam COMPARISON: None. TECHNIQUE: PA and lateral views of the chest. FINDINGS: The cardiomediastinal silhouette is normal. No focal consolidation is enlarged. There is no pneumothorax. No pleural effusion is noted. The osseous structures are intact. XR/XR chest 2V IMPRESSION: Cardiomegaly. Electronically authenticated by: HEIDI WILBURN Date: 03/09/2024 13:07 Dictated By: Heidi Wilburn M.D. Signed By: 03/09/24 1338 DD/ 1307 TD/TT: Executive Pilot: Procedure Note Radiology, Radiologist, MD - 03/09/2024 [place] [address] XRay Report Signed Patient: KJ LEI LMR#: [id number] : 1945cct:[id number] Age/Sex: 78 / MADM Date: 03/09/24 Loc: [facility] Attending Dr: Abraham Pimentel M.D. Ordering Physician: Abraham Pimentel M.D. Date of Service: 03/09/24 Procedure(s): XR chest 2V Accession Number(s): [id number] cc: AMERICA CHILDS ; Abraham Pimentel M.D. The [address] [address] Patient Name: KJ LEI MRN: [id number] date: 1945 Sex: M Assigned Patient Location: Current Patient Location: [place] Accession/Order Number: [id number] Exam Date: 03/09/2024 11:00 Report Date: 03/09/2024 13:07 At the request of: ABRAHAM PIMENTEL Procedure: XR chest 2V EXAM: XR chest 2V HISTORY: Preop exam COMPARISON: None. TECHNIQUE: PA and lateral views of the chest. FINDINGS: The cardiomediastinal silhouette is normal. No focal consolidation is enlarged. There is no pneumothorax. No pleural effusion is noted. The osseous structures are intact. XR/XR chest 2V IMPRESSION: Cardiomegaly. Electronically authenticated by: HEIDI WILBURN Date: 03/09/2024 13:07 Dictated By: Heidi Wilburn M.D. Signed By:03/09/24 1338 DD/ 1307 TD/TT: Executive Pilot: us Generic External Data Provider [facility] Final Result documented in this encounter Visit Diagnoses Not on filedocumented in this encounter Additional Health Concerns Assessment Noted Time PHQ-9 Depression Total Score: 0 02/23/20 24 1:00 PM EDT documented as of this encounter Care Teams Comsec Manager Relationship Specialty Start Date End Date America Childs MD [address] [place], [place] [id number] PCP - General Family Medicine 12/17/23 Suzi Moyer NP [address] [facility] [place] [address] Nurse Practitioner Family Medicine 12/17/23 documented as of this encounter
--- OUTSIDE RECORDS SUMMARY | 2025-04-19 10:52 | XMS_ITS | Encounter Summary ---
Author Organization [facility] Address [address] [place] [address] Care Team Providers Care Product Safety Professional Name Role Phone America Childs MD Primary Care Provider [phone] Suzi Moyer NP Unavailable [phone] Encounter Details Date Type Department Care Team (Late st Contact Info) Description 03/09/2024 Clinisync Result Encounter [facility] External Department Unsolicited Abraham Pimentel MD [address], [place] [id number] Social History Tobacco Use Types Packs/Day Years [...] friends or relatives? Patient declined 01/01/2024 Attends Buddhist Services Not on file 01/01 Do you belong to any clubs o r organizations such as hindu groups, unions, fraternal or athletic groups, or [...] Recorded Patient Health Questionnaire-2 Score 0 08/26/2023 [facility] Occupat ional Health - Occupational Stress [...] place to sleep or slept in a intermediate (including now)? Patient refused 01/01/2024 Sex and Gender Information Value Date Recorded Sex Assigned at Not on file Legal Sex Male 7:29 PM EDT Gender Identity Not on file Sexual Orientation Not on file documented as of this encounter Plan of Treatment Upcoming Encounters Date Type Department Care Team (Late st Contact Info) Description 09/25/2025 12:30 PM EDT Office Visit [facility] [address] [place] [address] Suzi Moyer NP [address] [place] [address] documented as of this encounter Procedures Procedure Name Priority Date/Time Associated Diagnosis Comments VC EXT VENOUS REFLUX ANNE LMTD 03/09/2024 1:53 PM EDT documented in this encounter Results * VC EXT VENOUS REFLUX ANNE LMTD (03/09/2024 1:53 PM EDT) Anatomical Region Laterality Modality Other 03/09/2024 1:53 PM EDT Narrative 03/09/2024 1:54 PM EDT The [address] [address] Vein Report Signed Patient: KJ LEI MR#: [id number] : 1945 Acct:[id number] Age/Sex: 78 / M ADM Date: 03/09/24 Loc: [facility] Attending Dr: Abraham Pimentel M.D. Ordering Physician: Abraham Pimentel M.D. Date of Service: 03/09/24 Procedure(s): VC EXT Venous Reflux ANNE LMTD Accession Number(s): [id number] cc: AMERICA CHILDS ; Abraham Pimentel M.D. Patient Name: KJ LEI MR#: [id number] : 1945 Exam Date: 03/09/2024 Ordering Doctor: ABRAHAM PIMENTEL M.D. RADIOLOGY REPORT PROCEDURE: VC EXT VENOUS REFLUX ANEN LMTD COMPARISON: None. 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 The study includes evaluation of the great saphenous vein (GSV), anterior accessory saphenous vein (AASV) and small saphenous vein (SSV). Patient scanned in reverse Trendelenburg and standing. FINDINGS: RIGHT LOWER EXTREMITY: Saphenofemoral Junction Reflux: Yes 5.8mm 2.0 sec GSV: Diam (mm) Reflux/ Time (sec) Proximal Thigh N/A Mid Thigh N/A Distal Thigh N/A Prox Calf N/A Mid Calf N/A Saphenopopliteal Junction Reflux: 3.2mm Yes 0.5 SSV: Proximal Calf N/A Mid Calf N/A AASV: Not present Thrombi: Chronic thrombus in FV proximal to mid/distal. Compressibility: Non compressible FV. Flow: Mild deep venous reflux. Preforator: Distal/posterior thigh 4.6 mm with 0.9s reflux. Proximal thigh at level of SFJ and arises from FV 4.9 mm with 0.9s reflux. Tech Note: Heterogeneous lymph node in right groin measures 2.9 x 1.6 x 1.1 cm. previously treated GSV and possibly SSV. Incompetent varicose vein mid medial thigh measures associated with proximal thigh stock tracer measures 5.7mm with 0.5s reflux. Varicose vein proximal anterior lower leg measures 3.2 mm with 0.6s reflux. LEFT LOWER EXTREMITY: Saphenofemoral Junction Reflux: Yes 4.3 mm 0.6 sec GSV: Diam (mm) Reflux/Time (sec) Proximal Thigh N/A Mid Thigh N/A Distal Thigh N/A Prox Calf N/A Mid Calf N/A Saphenopopliteal Junction Relux: 3.8 mm Yes 0.3 SSV: Proximal Calf 1.3 Yes 0.7 Mid Calf 2.8 Yes 0.3 AASV: Not present Thrombi: No acute or chronic thrombus. Compressibility: Normal. Flow: Moderate deep venous reflux. Substation Engineer: No significant perforators. Tech Note: Previously treated GSV. Incompetent varicose vein distal medial lower leg measures 2.3 mm with 0.3s reflux. Varicose vein medial knee measures 3.6 mm with 1.8s reflux. Varicose vein proximal lateral lower leg measures 2.1 mm with 0.5s reflux. Varicose vein distal anterior lower leg measures 3.6 mm with 0.6s reflux. CONCLUSION: 1. Previously treated bilateral great saphenous and small saphenous veins 2. Mild venous insufficiency without dilatation left small saphenous vein 3. Mild right and moderate left deep vein reflux 4. 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 Incompetent right leg perforating veins 6. Small bilateral incompetent varicose veins, left greater than right Dictated by: Peter Leslie MD on 03/09/2024 at 13:45 Approved by: Peter Leslie MD on 03/09/2024 at 13:53 Dictated By: Peter Leslie M.D. Signed By: 03/09/24 1354 DD/ 1353 TD/TT: Tin Pot Operator: Procedure Note Radiology, Radiologist, MD - 03/09/2024 [place] [address] Vein Report Signed Patient: KJ LEI LMR#: [id number] : 7Acct:[id number] Age/Sex: 78 / MADM Date: 03/09/24 Loc: VC Attending Dr: Abraham Pimentel M.D. Ordering Physician: Abraham Pimentel M.D. Date of Service: 03/09/24 Procedure(s): VC EXT Venous Reflux ANNE LMTD Accession Number(s): [id number] cc: AMERICA CHILDS ; Abraham Pimentel M.D. Patient Name: KJ LEI MR#: [id number] : 1945 Exam Date: 03/09/2024 Ordering Doctor: ABRAHAM PIMENTEL M.D. RADIOLOGY REPORT PROCEDURE: VC EXT VENOUS REFLUX ANNE LMTD COMPARISON: None. 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 Thestudy includes evaluation of the great saphenous vein (GSV), anterior accessory saphenous vein (AASV) and small saphenous vein (SSV). Patient scanned in reverse Trendelenburg and standing. FINDINGS: RIGHT LOWER EXTREMITY: Saphenofemoral Junction Reflux: Yes 5.8mm 2.0 sec GSV: Diam (mm) Reflux/ Time (sec) Proximal Thigh N/A Mid Thigh N/A Distal Thigh N/A Prox Calf N/A Mid Calf N/A Saphenopopliteal Junction Reflux: 3.2mm Yes 0.5 SSV: Proximal Calf N/A Mid Calf N/A AASV: Not present Thrombi: Chronic thrombus in FV proximal to mid/distal. Compressibility: Non compressible FV. Flow: Mild deep venous reflux. Preforator: Distal/posterior thigh 4.6 mm with 0.9s reflux. Proximal thigh at level ofSFJ and arises from FV 4.9 mm with 0.9s reflux. Tech Note: Heterogeneous lymph node in right groin measures 2.9 x 1.6 x1.1 cm. previously treated GSV and possibly SSV. Incompetent varicose vein mid medial thigh measures associated with proximal thigh stock tracer measures5.7mm with 0.5s reflux. Varicose vein proximal anterior lower leg measures 3.2mm with 0.6s reflux. LEFT LOWER EXTREMITY: Saphenofemoral Junction Reflux: Yes 4.3 mm 0.6 sec GSV: Diam (mm) Reflux/Time (sec) Proximal Thigh N/A Mid Thigh N/A Distal Thigh N/A Prox Calf N/A Mid Calf N/A Saphenopopliteal Junction Relux: 3.8 mm Yes 0.3 SSV: Proximal Calf 1.3 Yes 0.7 Mid Calf 2.8 Yes 0.3 AASV: Not present Thrombi: No acute or chronic thrombus. Compressibility: Normal. Flow: Moderate deep venous reflux. Substation Engineer: No significant perforators. Tech Note: Previously treated GSV. Incompetent varicose vein distal medial lower leg measures 2.3 mm with 0.3s reflux. Varicose vein medial kneemeasures 3.6 mm with 1.8s reflux. Varicose vein proximal lateral lower leg measures2.1 mm with 0.5s reflux. Varicose vein distal anterior lower leg measures 3.6mm with 0.6s reflux. CONCLUSION: 1. Previously treated bilateral great saphenous and small saphenous veins 2. Mild venous insufficiency without dilatation left small saphenous vein 3. Mild right and moderate left deep vein reflux 4. 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 Incompetent right leg perforating veins 6. Small bilateral incompetent varicose veins, left greater than right Dictated by: Peter Leslie MD on 03/09/2024 at 13:45 Approved by: Peter Leslie MD on 03/09/2024 at 13:53 Dictated By: Peter Leslie M.D. Signed By:03/09/24 1354 DD/ 1353 TD/TT: Tin Pot Operator: [facility] Cheyanne Pimentel MD [facility] Final Resu lt documented in this encounter Visit Diagnoses Not on filedocumented in this encounter Additional Health Concerns Assessment Noted Time PHQ-9 Depression Total Score: 0 02/23/20 24 1:00 PM EDT documented as of this encounter Care Teams Product Safety Professional Relationship Specialty Start Date End Date America Childs MD [address] [place] [address] PCP - General Family Medicine 12/17/23 Suzi Moyer NP [address] [facility] [place] [address] Nurse Practitioner Family Medicine 12/17/23 documented as of this encounter
--- OUTSIDE RECORDS SUMMARY | 2025-04-19 10:52 | XMS_ITS | Encounter Summary ---
Author Organization [facility] Address [address] [place] [address] Care Team Providers Care Microsoft Bi Developer Name Role Phone Ines Cole MD Primary Care Provider [phone] Suzi Moyer NP Unavailable [phone] Encounter Details Date Type Department Care Team (Late st Contact Info) Description 02/06/2024 Abstract [facility] [address] [place] [address] Ines Cole MD [address] [place], [place] [address] Social History Tobacco Use Types Packs/Day Years [...] friends or relatives? Patient declined 01/01/2024 Attends Christian Services Not on file 01/01 Do you belong to any clubs o r organizations such as lutheran groups, unions, fraternal or athletic groups, or [...] Recorded Patient Health Questionnaire-2 Score 0 08/26/2023 [facility] of Occupat ional Health - Occupational Stress [...] place to sleep or slept in a prison (including now)? Patient refused 01/01/2024 Sex and [...] EDT Office Visit [facility] [address] [place] [address] Suzi Moyer NP [address] [place] [address] documented as of this encounter Visit Diagnoses Not on filedocumented in this encounter Care Teams Microsoft Bi Developer Relationship Specialty Start Date End Date Ines Cole MD [address] [place] [address] PCP - General Family Medicine 12/17/23 Suzi Moyer NP [address] [facility] [place] [address] Nurse Practitioner Family Medicine 12/17/23 documented as of this encounter
--- OUTSIDE RECORDS SUMMARY | 2025-04-19 10:52 | XMS_ITS | Encounter Summary ---
Author Organization [facility] tem Address [id number] [address] [place] [address] Care Team Providers Care Attending Anesthesiologist Name Role Phone Kamryn Rios MD Primary Care Provider [phone] Encounter Details Date Type Department Care Team (Late st Contact Info) Description 05/24/2019 Telephone [facility] [address] [place] [address] Mary Da Silva, MITCH Social [...] documented as of this encounter Care Teams Attending Anesthesiologist Relationship Specialty Start Date End Date Kamryn Rios MD [address], [address] [place] [address] PCP - General Internal Medicine 02/11/25 documented as of this encounter
--- OUTSIDE RECORDS SUMMARY | 2025-04-19 10:52 | XMS_ITS | Encounter Summary ---
Author Organization [facility] tem Address [facility] [id number] [address] [place] [address] Care Team Providers Care Transit Vehicle Inspector Name Role Phone Kamryn Rios MD Primary Care Provider [phone] Encounter Details Date Type Department Care Team (Late st Contact Info) Description 11/05/2020 Telephone [facility] [address] [place] [address] Mary Da Silva, MITCH Social [...] documented as of this encounter Care Teams Transit Vehicle Inspector Relationship Specialty Start Date End Date Kmaryn Rios MD [address], [address] [place] [address] PCP - General Internal Medicine 02/11/25 documented as of this encounter
--- OUTSIDE RECORDS SUMMARY | 2025-04-19 10:52 | XMS_ITS | Clinical Summary ---
Author Organization [facility] Address [address] [place] [address] Care Team Providers Care Grievance Manager Name Role Phone Unavailable Primary Care Provider Unavailabl e Encounters Date Type Department Care Team Description 03/07/2025 Telephone [facility] Infectious Disease [address] [place] [address], [address] [place] [address] Jory Rios CNP from Last 3 Months Social History Tobacco Use Types Packs/Day Years Used Date Smoking Tobacco: Never Assessed Sex and Gender Information Value Date Recorded Sex Assigned at Not on file Gender Identity Not on file Sexual Orientation Not on file Plan of Treatment Health Maintenance Due Date Last Done Comments Medicare Annual Wellness (AWV) 1945 Depression Screening 1959 Adult Tetanus 1969 Fall Risk Screening 2012 COVID-19 Vaccine ( season) 2024 08/29/2024, 08/29/2024, 11/20/2021, Additional history exists Pneumococcal Vaccine: 65+ Years Completed 05/01/2016, 09/10/2015, 11/30/2005 Zoster Vaccines Completed 08/28/2023, 05/27/2023 Influenza Vaccine Completed 08/29/2024, , 08/27/2022, Additional history exists HIB Vaccines Aged Out No longer eligi ble based on patient's age to complete this topic HPV Vaccines Aged Out No longer eligi ble based on patient's age to complete this topic IPV Vaccines Aged Out No longer eligi ble based on patient's age to complete this topic Meningococcal B Vaccine Aged Out No l onger eligible based on patient's age to complete this topic Meningococcal Vaccine Aged Out No yolie maria t eligible based on patient's age to complete this topic Rotavirus Vaccines Aged Out No longer eligible based on patient's age to complete this topic
--- OUTSIDE RECORDS SUMMARY | 2025-04-19 10:52 | XMS_ITS | Encounter Summary ---
Author Organization [facility] tem Address [facility] [place] [id number] [address] [place] [address] Care Team Providers Care Machine Accountant Name Role Phone Kamryn Rios MD Primary Care Provider [phone] Encounter Details Date Type Department Care Team (Late st Contact Info) Description 11/13/2020 Telephone [facility] [address] [place] [address] Mary Da Silva, MITCH Social [...] have Coronavirus / COVID-19? Unable to assess 11/16/2020 11:25 AM ES T documented as of this encounter Plan of Treatment Not on file documented as of this encounter Visit Diagnoses Not on filedocumented in this encounter Additional Health Concerns Infection Onset Date Last Indicated Resolved Time COVID-19 Rule-Out 12/05/2020 12/05/2020 12/06/2020 12:15 PM EST documented as of this encounter Care Teams Machine Accountant Relationship Specialty Start Date End Date Kamrny Rios MD [address], [address] [place] [address] PCP - General Internal Medicine 02/11/25 documented as of this encounter
--- OUTSIDE RECORDS SUMMARY | 2025-04-19 10:52 | XMS_ITS | Encounter Summary ---
Author Organization [facility] tem Address [facility] [id number] [address] [place] [address] Care Team Providers Care Doctor Of Naprapathy Name Role Phone Kamryn Rios MD Primary Care Provider [phone] Encounter Details Date Type Department Care Team (Late st Contact Info) Description 10/11/2020 Telephone [facility] [address] [place] [address] Mary Da Silva, MITCH Social [...] have Coronavirus / COVID-19? Unable to assess 10/12/2020 10:24 AM ES T documented as of this encounter Plan of Treatment Not on file documented as of this encounter Visit Diagnoses Not on filedocumented in this encounter Additional Health Concerns Infection Onset Date Last Indicated Resolved Time COVID-19 Rule-Out 12/05/2020 12/05/2020 12/06/2020 12:15 PM EST documented as of this encounter Care Teams Doctor Of Naprapathy Relationship Specialty Start Date End Date Kamryn Rios MD [address], [address] [place] [address] PCP - General Internal Medicine 02/11/25 documented as of this encounter
--- OUTSIDE RECORDS SUMMARY | 2025-04-19 10:52 | XMS_ITS | Referral Summary ---
Author Organization [facility] Address [address] [place] [address] Care Team Providers Care Appointment Clerk Name Role Phone Unavailable Primary Care Provider Unavailabl e Encounters Date Type Department Care Team Description 03/07/2025 Telephone [facility] Infectious Disease [address] [place] [address], [address] [place] [address] Jory Rios CNP from Last 3 Months Social History Tobacco Use Types Packs/Day Years Used Date Smoking Tobacco: Never Assessed Sex and Gender Information Value Date Recorded Sex Assigned at Not on file Gender Identity Not on file Sexual Orientation Not on file Plan of Treatment Not on file
--- OUTSIDE RECORDS SUMMARY | 2025-04-19 10:53 | XMS_ITS | Encounter Summary ---
Author Organization [facility] tem Address [id number] [address] [place] [address] Care Team Providers Care Pest Control Pilot Name Role Phone Kamryn Rios MD Primary Care Provider [phone] Encounter Details Date Type Department Care Team (Late st Contact Info) Description 02/21/2020 Telephone [facility] [address] [place] [address] Mary Da Silva, MITCH Social [...] documented as of this encounter Care Teams Pest Control Pilot Relationship Specialty Start Date End Date Kamryn Rios MD [address], [address] [place] [address] PCP - General Internal Medicine 02/11/25 documented as of this encounter
--- OUTSIDE RECORDS SUMMARY | 2025-04-19 10:53 | XMS_ITS | Encounter Summary ---
Author Organization [facility] Address [address] [place] [address] Care Team Providers Care Unattended Ground Sensor Specialist Name Role Phone Ines Cole MD Primary Care Provider [phone] Suzi Moyer NP Unavailable [phone] Encounter Details Date Type Department Care Team (Late st Contact Info) Description 06/01/2024 Abstract [facility] [address] [place] [address] Ines Cole MD [address] [place], [place] [id number] Social History Tobacco Use Types Packs/Day Years [...] friends or relatives? Patient declined 01/01/2024 Attends Buddhism Services Not on file 01/01 Do you belong to any clubs o r organizations such as confucianist groups, unions, fraternal or athletic groups, or [...] Recorded Patient Health Questionnaire-2 Score 0 08/26/2023 [facility] - [...] place to sleep or slept in a usp (including now)? Patient refused 01/01/2024 Sex and [...] EDT Office Visit [facility] [address] [place] [address] Suzi Moyer NP [address] [place] [address] documented as of this encounter Visit Diagnoses Not on filedocumented in this encounter Additional Health Concerns Assessment Noted Time PHQ-9 Depression Total Score: 0 02/23/20 24 1:00 PM EDT documented as of this encounter Care Teams Unattended Ground Sensor Specialist Relationship Specialty Start Date End Date Ines Cole MD [address] [place] [address] PCP - General Family Medicine 12/17/23 Suzi Moyer NP [address] [place] [address] Nurse Practitioner Family Medicine 12/17/23 documented as of this encounter
--- OUTSIDE RECORDS SUMMARY | 2025-04-19 10:53 | XMS_ITS | Encounter Summary ---
Author Organization [email or web address] Address [facility] [id number] [address] [place] [address] Care Team Providers Care Trace Evidence Technician Name Role Phone Kamryn Rios MD Primary Care Provider [phone] Encounter Details Date Type Department Care Team (Late st Contact Info) Description 01/21/2025 Orders Only [facility] [address] [place] [address] Transcribe, Orders Support User Pain (Primary Dx) Social History Tobacco Use Types Packs/Day Years Used Date Smoking Tobacco: Never Smokeless Tobacco: Never Alcohol Use Standard Drinks/Week Comments Yes 0 (1 standard drink = 0.6 oz pur e alcohol) occasionally [employer] Utilities Answer Date Recorded In the past 12 months has th e electric, gas, oil, or water company threatened to shut off services in your home? No 01/20/2025 PHQ-2 Answer Date Recorded Total Score 0 12/05/2020 PRAPARE - Transportation Answer Date Re corded In the past 12 months, has l ack of transportation kept you from medical appointments or from getting medications? No 01/01 In the past 12 months, has l ack of transportation kept you from meetings, work, or from getting things needed for daily living? No 01/20/2025 Housing Instability Answer Date Recorde d Are you worried or concerned that in the next two months you may not have stable housing that you own, rent or stay in as a part of a household? No 01/20/2025 Childcare Answer Date Recorded Childcare Unknown 04/29/2019 Employment Answer Date Recorded Employment Unknown 04/29/2019 Hunger Screening Answer Date Recorded Within the past 12 months we worried whether our food would run out before we got money to buy more. Never True 01/22/2025 Within the past 12 months th e food we bought just didn't last and we didn't have money to get more. Never True 01/22/2025 Purpose - Life Answer Date Recorded Purpose and direction in life Unknown Sex and Gender Information Value Date Recorded Sex Assigned at Not on file Legal Sex Male 11:21 AM EDT Gender Identity Not on file Sexual Orientation Not on file documented as of this encounter Functional Status documented as of this encounter Plan of Treatment Not on file documented as of this encounter Results * X-ray foot left minimum 3 views (01/20/2025 11:30 AM EST) us Scanning Provider External IMG DIAGNOSTIC IMAGIN G ORDERABLES Final Result documented in this encounter Visit Diagnoses Diagnosis Pain- Primary Generalized pain documented in this encounter Additional Health Concerns Assessment Noted Time PHQ-9 Depression Total Score: 0 12/05/19 21 7:06 PM EST documented as of this encounter Care Teams Trace Evidence Technician Relationship Specialty Start Date End Date Kamryn Rios MD [address], [address] [place] [address] PCP - General Internal Medicine 02/11/25 documented as of this encounter
--- OUTSIDE RECORDS SUMMARY | 2025-04-19 10:53 | XMS_ITS | Encounter Summary ---
Author Organization [facility] tem Address [facility] [place]-[id number] [address] [place] [address] Care Team Providers Care Farm Tractor Operator Name Role Phone Kamryn Rios MD Primary Care Provider [phone] Encounter Details Date Type Department Care Team (Late st Contact Info) Description 10/18/2019 Telephone [facility] [address] [place] [address] Mary Da Silva, MITCH Social [...] documented as of this encounter Care Teams Farm Tractor Operator Relationship Specialty Start Date End Date Kamryn Rios MD [address], [address] [place] [address] PCP - General Internal Medicine 02/11/25 documented as of this encounter
--- OUTSIDE RECORDS SUMMARY | 2025-04-19 10:53 | XMS_ITS | Encounter Summary ---
Author Organization [employer] Address [id number] [address] [place] [address] Care Team Providers Care Cat Skinner Name Role Phone Kamryn Rios MD Primary Care Provider [phone] Encounter Details Date Type Department Care Team (Late st Contact Info) Description 04/18/2024 Orders Only [facility] [address] [place] [address] Ref Prov, [place] [address] Social History Tobacco Use Types Packs/Day Years [...] got money to buy more. Never True 03/24/2024 Within the past 12 months th e food we bought just didn't last and we didn't have money to get more. Never True 03/24/2024 Purpose - Life Answer Date Recorded Purpose and direction in life Unknown Sex and Gender Information Value Date Recorded Sex Assigned at Not on file Legal Sex Male 11:21 AM EDT Gender Identity Not on file Sexual Orientation Not on file documented as of this encounter Plan of Treatment Not on file documented as of this encounter Procedures Procedure Name Priority Date/Time Associated Diagnosis Comments VASC ARTERIAL DOPPLER LOWER BILATERAL MULTI LEVEL/PVR Routine 04/08/2024 1:36 PM EDT documented in this encounter Results * Vas art doppler lwr bilat mult lev/PVR (04/08/2024 1:36 PM EDT) Anatomical Region Laterality Modality Vascular Bilateral Ultrasound us Not In System Ref Prov CV VASCULAR ORDERABLES Fi nal Result documented in this encounter Visit Diagnoses Not on filedocumented in this encounter Additional Health Concerns Assessment Noted Time PHQ-9 Depression Total Score: 0 12/05/19 21 7:06 PM EST documented as of this encounter Care Teams Cat Skinner Relationship Specialty Start Date End Date Kamryn Rios MD [address], [address] [place] [address] PCP - General Internal Medicine 02/11/25 documented as of this encounter
--- OUTSIDE RECORDS SUMMARY | 2025-04-19 10:53 | XMS_ITS | Encounter Summary ---
Author Organization [facility] tem Address [facility][id number] [address] [place] [address] Care Team Providers Care Supervisor Propellant Charge Loading Name Role Phone Kamryn Rios MD Primary Care Provider [phone] Encounter Details Date Type Department Care Team (Late st Contact Info) Description 09/05/2019 Telephone [facility] [address] [place] [address] Karyn Meneses, MITCH Social History Tobacco Use Types Packs/Day [...] documented as of this encounter Care Teams Supervisor Propellant Charge Loading Relationship Specialty Start Date End Date Kamryn Rios MD [address], [address] [place] [address] PCP - General Internal Medicine 02/11/25 documented as of this encounter
--- OUTSIDE RECORDS SUMMARY | 2025-04-19 10:53 | XMS_ITS | Encounter Summary ---
Author Organization [employer] Address [facility] [place]-[id number] [address] [place] [address] Care Team Providers Care Computer Game Designer Name Role Phone Kamryn Rios MD Primary Care Provider [phone] Encounter Details Date Type Department Care Team (Late st Contact Info) Description 05/31/2021 Orders Only [facility] [address] [place] [address] Ref Prov, [place] [address] Social History Tobacco Use Types Packs/Day Years [...] have Coronavirus / COVID-19? No / Unsure 05/29/2021 3:48 PM EDT documented as of this encounter Plan of Treatment Not on file documented as of this encounter Procedures Procedure Name Priority Date/Time Associated Diagnosis Comments ANKLE BRACHIAL INDEX Routine 05/31/2021 documented in this encounter Results * Ankle Brachial Index (05/31/2021) us Not In System Ref Prov PROCEDURE/MINOR SURGICAL ORDERABLES Final Result MANUALLY TRANSCRIBED RESULTS documented in this encounter Visit Diagnoses Not on filedocumented in this encounter Additional Health Concerns Assessment Noted Time PHQ-9 Depression Total Score: 0 12/05/19 21 7:06 PM EST documented as of this encounter Care Teams Computer Game Designer Relationship Specialty Start Date End Date Kamryn Rios MD [address], [address] [place] [address] PCP - General Internal Medicine 02/11/25 documented as of this encounter
--- OUTSIDE RECORDS SUMMARY | 2025-04-19 10:53 | XMS_ITS | Encounter Summary ---
Author Organization [facility] tem Address [facility] [place][id number] [address] [place] [address] Care Team Providers Care Sales Support Coordinator Name Role Phone Kamryn Rios MD Primary Care Provider [phone] Encounter Details Date Type Department Care Team (Late st Contact Info) Description 09/20/2019 Telephone [facility] [address] [place] [address] Mary Da Silva, MITCH Social [...] documented as of this encounter Care Teams Sales Support Coordinator Relationship Specialty Start Date End Date Kamryn Rios MD [address], [address] [place] [address] PCP - General Internal Medicine 02/11/25 documented as of this encounter
--- OUTSIDE RECORDS SUMMARY | 2025-04-19 10:53 | XMS_ITS | Encounter Summary ---
Author Organization [employer] tem Address [facility] [id number] [address] [place] [address] Care Team Providers Care Teenage Program Director Name Role Phone Kamryn Rios MD Primary Care Provider [phone] Encounter Details Date Type Department Care Team (Late st Contact Info) Description 05/09/2024 Orders Only [facility] [address] [place] [address] Nadia Kelsey CMA Venous ulcer-leg syndrome, bilateral (CMS-HCC); 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 complications Social History Tobacco Use Types Packs/Day Years [...] documented as of this encounter Visit Diagnoses Diagnosis Venous ulcer-leg syndrome, 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
--- OUTSIDE RECORDS SUMMARY | 2025-04-19 10:53 | XMS_ITS | Encounter Summary ---
Author Organization [facility] [employer] [facility] tem Address [facility] [place][id number] [address] [place] [address] Care Team Providers Care Risk Compliance Analyst Name Role Phone Kamryn Rios MD Primary Care Provider [phone] Encounter Details Date Type Department Care Team (Late st Contact Info) Description 04/02/2020 Telephone [facility] [address] [place] [address] Mary Da Silva, MITCH Social [...] have Coronavirus / COVID-19? No / Unsure 04/04/2020 11:38 AM EDT documented as of this encounter Plan of Treatment Not on file documented as of this encounter Visit Diagnoses Not on filedocumented in this encounter Additional Health Concerns Infection Onset Date Last Indicated Resolved Time COVID-19 Rule-Out 12/05/2020 12/05/2020 12/06/2020 12:15 PM EST documented as of this encounter Care Teams Risk Compliance Analyst Relationship Specialty Start Date End Date Kamryn Rios MD [address], [address] [place] [address] PCP - General Internal Medicine 02/11/25 documented as of this encounter
--- OUTSIDE RECORDS SUMMARY | 2025-04-19 10:53 | XMS_ITS | Encounter Summary ---
Author Organization [facility] tem Address [facility] [place]-[id number] [address] [place] [address] Care Team Providers Care Labour Market Economist Name Role Phone Kamryn Rios MD Primary Care Provider [phone] Encounter Details Date Type Department Care Team (Late st Contact Info) Description 08/24/2019 Telephone [facility] [address] [place] [address] Mary Da Silva, MITCH Social [...] documented as of this encounter Care Teams Labour Market Economist Relationship Specialty Start Date End Date Kamryn Rios MD [address], [address] [place] [address] PCP - General Internal Medicine 02/11/25 documented as of this encounter
--- OUTSIDE RECORDS SUMMARY | 2025-04-19 10:53 | XMS_ITS | Encounter Summary ---
Author Organization [facility] tem Address [facility] [place]-[id number] [address] [place] [address] Care Team Providers Care Strip Cutter Name Role Phone Kamryn Rios MD Primary Care Provider Encounter Details Date Type Department Care Team (Late st Contact Info) Description 11/29/2019 Telephone [facility] [address] [place] [address] Mary Da Silva, MITCH Social [...] documented as of this encounter Care Teams Strip Cutter Relationship Specialty Start Date End Date Kamryn Rios MD [address], [address] [place] [address] PCP - General Internal Medicine 02/11/25 documented as of this encounter
--- OUTSIDE RECORDS SUMMARY | 2025-04-19 10:53 | XMS_ITS | Encounter Summary ---
Author Organization [facility] tem Address [facility] [place]-[id number] [address] [place] [address] Care Team Providers Care Software Systems Analyst Name Role Phone Kamryn Rios MD Primary Care Provider [phone] Encounter Details Date Type Department Care Team (Late st Contact Info) Description 08/09/2019 Telephone [facility] [address] [place] [address] Mary Da Silva, MITCH Social [...] documented as of this encounter Care Teams Software Systems Analyst Relationship Specialty Start Date End Date Kamryn Rios MD [address], [address] [place] [address] PCP - General Internal Medicine 02/11/25 documented as of this encounter
--- OUTSIDE RECORDS SUMMARY | 2025-04-19 10:53 | XMS_ITS | Encounter Summary ---
Author Organization [facility] tem Address [facility] [place][id number] [address] [place] [address] Care Team Providers Care Certified Phlebotomy Technician Name Role Phone Kamryn Rios MD Primary Care Provider [phone] Encounter Details Date Type Department Care Team (Late st Contact Info) Description 09/14/2020 Telephone [facility] [address] [place] [address] Josy Frank CNA Social History Tobacco Use Types Packs/Day Years [...] have Coronavirus / COVID-19? Unable to assess 09/14/2020 10:20 AM ED T documented as of this encounter Plan of Treatment Not on file documented as of this encounter Visit Diagnoses Not on filedocumented in this encounter Additional Health Concerns Infection Onset Date Last Indicated Resolved Time COVID-19 Rule-Out 12/05/2020 12/05/2020 12/06/2020 12:15 PM EST documented as of this encounter Care Teams Certified Phlebotomy Technician Relationship Specialty Start Date End Date Kamryn Rios MD [address], [address] [place] [address] PCP - General Internal Medicine 02/11/25 documented as of this encounter
--- OUTSIDE RECORDS SUMMARY | 2025-04-19 10:53 | XMS_ITS | Encounter Summary ---
Author Organization [facility] tem Address [facility] [place]-[id number] [address] [place] [address] Care Team Providers Care Heel Seat Sander Name Role Phone Kamryn Rios MD Primary Care Provider [phone] Encounter Details Date Type Department Care Team (Late st Contact Info) Description 08/14/2020 Telephone [facility] [address] [place] [address] Mary Da Silva, MITCH Social [...] have Coronavirus / COVID-19? Unable to assess 08/17/2020 11:49 AM EDT documented as of this encounter Plan of Treatment Not on file documented as of this encounter Visit Diagnoses Not on filedocumented in this encounter Additional Health Concerns Infection Onset Date Last Indicated Resolved Time COVID-19 Rule-Out 12/05/2020 12/05/2020 12/06/2020 12:15 PM EST documented as of this encounter Care Teams Heel Seat Sander Relationship Specialty Start Date End Date Kamryn Rios MD [address], [address] [place] [address] PCP - General Internal Medicine 02/11/25 documented as of this encounter
--- OUTSIDE RECORDS SUMMARY | 2025-04-19 10:53 | XMS_ITS | Encounter Summary ---
Author Organization [facility] tem Address [id number] [address] [place] [address] Care Team Providers Care Cement Mason Maintenance Name Role Phone Kamryn Rios MD Primary Care Provider [phone] Encounter Details Date Type Department Care Team (Late st Contact Info) Description 04/12/2019 Telephone [facility] [address] [place] [address] Mary Da Silva, MITCH Social History Tobacco Use Types Packs/Day Years Used Date Smoking Tobacco: Never Smokeless Tobacco: Never Alcohol Use Standard Drinks/Week Comments Yes 0 (1 standard drink = 0.6 oz pur e alcohol) occasionally Childcare Answer Date Recorded Childcare Unknown 02/22/2019 Employment Answer Date Recorded Employment Unknown 02/22/2019 Sex and Gender Information Value Date Recorded [...] documented as of this encounter Care Teams Cement Mason Maintenance Relationship Specialty Start Date End Date Kamryn Rios MD [address], [address] [place] [address] PCP - General Internal Medicine 02/11/25 documented as of this encounter
--- OUTSIDE RECORDS SUMMARY | 2025-04-19 10:53 | XMS_ITS | Encounter Summary ---
Author Organization [facility] tem Address [facility] [place][id number] [address] [place] [address] Care Team Providers Care Used Car Sales Manager Name Role Phone Kamryn Rios MD Primary Care Provider [phone] Encounter Details Date Type Department Care Team (Late st Contact Info) Description 02/25/2021 Telephone [facility] [address] [place] [address] Mary Da Silva, MITCH Social [...] have Coronavirus / COVID-19? No / Unsure 02/27/2021 10:07 AM EDT documented as of this encounter Plan of Treatment Not on file documented as of this encounter Visit Diagnoses Not on filedocumented in this encounter Additional Health Concerns Assessment Noted Time PHQ-9 Depression Total Score: 0 12/05/19 21 7:06 PM EST documented as of this encounter Care Teams Used Car Sales Manager Relationship Specialty Start Date End Date Kamryn Rios MD [address], [address] [place] [address] PCP - General Internal Medicine 02/11/25 documented as of this encounter
--- OUTSIDE RECORDS SUMMARY | 2025-04-19 10:53 | XMS_ITS | Encounter Summary ---
Author Organization [facility] tem Address [facility] [place]-[id number] [address] [place] [address] Care Team Providers Care Chronic Manager Name Role Phone Kamryn Rios MD Primary Care Provider [phone] Encounter Details Date Type Department Care Team (Late st Contact Info) Description 01/19/2019 Telephone [facility] [address] [place] [address] Josy Frank CNA Social History Tobacco Use Types Packs/Day Years Used Date Smoking Tobacco: Never Smokeless Tobacco: Never Alcohol Use Standard Drinks/Week Comments Yes 0 (1 standard drink = 0.6 oz pur e alcohol) occasionally Sex and Gender Information Value Date Recorded [...] documented as of this encounter Care Teams Chronic Manager Relationship Specialty Start Date End Date Kamryn Rios MD [address], [address] [place] [address] PCP - General Internal Medicine 02/11/25 documented as of this encounter
--- OUTSIDE RECORDS SUMMARY | 2025-04-19 10:53 | XMS_ITS | Encounter Summary ---
Author Organization [facility] tem Address [facility][id number] [address] [place] [address] Care Team Providers Care Conditioner Tumbler Operator Name Role Phone Kamryn Rios MD Primary Care Provider [phone] Encounter Details Date Type Department Care Team (Late st Contact Info) Description 03/26/2021 Telephone [facility] [address] [place] [address] Mary Da Silva, MITCH Social [...] have Coronavirus / COVID-19? No / Unsure 03/14/2021 10:14 AM EDT documented as of this encounter Plan of Treatment Not on file documented as of this encounter Visit Diagnoses Not on filedocumented in this encounter Additional Health Concerns Assessment Noted Time PHQ-9 Depression Total Score: 0 12/05/19 21 7:06 PM EST documented as of this encounter Care Teams Conditioner Tumbler Operator Relationship Specialty Start Date End Date Kamryn Rios MD [address], [address] [place] [address] PCP - General Internal Medicine 02/11/25 documented as of this encounter
--- OUTSIDE RECORDS SUMMARY | 2025-04-19 10:53 | XMS_ITS | Encounter Summary ---
Author Organization [facility] Address [address] [place] [address] Care Team Providers Care Welder Operator Name Role Phone Ines Cole MD Primary Care Provider [phone] Suzi Moyer NP Unavailable [phone] Encounter Details Date Type Department Care Team (Late st Contact Info) Description 06/01/2024 Abstract [facility] [address] [place] [address] Ines Cole MD [address] [place], [place] [id number] Social History Tobacco Use Types Packs/Day Years [...] friends or relatives? Patient declined 01/01/2024 Attends Rastafarian Services Not on file 01/01 Do you belong to any clubs o r organizations such as mosque groups, unions, fraternal or athletic groups, or [...] Recorded Patient Health Questionnaire-2 Score 0 08/26/2023 [facility] Occupat ional [facility] [...] place to sleep or slept in a long-term (including now)? Patient refused 01/01/2024 Sex and [...] EDT Office Visit [facility] [address] [place] [address] Suzi Moyer NP [address] [place] [address] documented as of this encounter Visit Diagnoses Not on filedocumented in this encounter Additional Health Concerns Assessment Noted Time PHQ-9 Depression Total Score: 0 02/23/20 24 1:00 PM EDT documented as of this encounter Care Teams Welder Operator Relationship Specialty Start Date End Date Ines Cole MD [address] [place] [address] PCP - General Family Medicine 12/17/23 Suzi Moyer NP [address] [place] [address] Nurse Practitioner Family Medicine 12/17/23 documented as of this encounter
--- OUTSIDE RECORDS SUMMARY | 2025-04-19 10:53 | XMS_ITS | Patient Health Record ---
Author Organization [facility] in [place] Address [address] [place] [address] Care Team Providers Care Blaster Helper Name Role Phone Quan Guerra MD Primary Care Provider Mono presley Reason For Referral No Information Medications Medication SIG (Take, Route, Frequency, Duration) Notes Start Date End Date Status Prilosec OTC 20 mg 1 enteric coated tab let DAILY Active CeleXA 20 mg 1 tablet DAILY A ctive Ziac 1 tablet DAILY Acti ve multivitamin Multiple Vitamins 1 capsule DAILY Active aspirin 81 mg 1 tablet DAILY Active Problems Problem Type SNOMED Code ICD Code Onset Dates Problem Status W/U Status Risk Notes Problem Venous ulcer of lower extremity due to chronic peripheral venous hypertension (696541412598562 ) Chronic venous hypertension (idiopathic) with ulcer of left lower extremity (I87.312) Active confirmed Problem Chronic venous hypertension (idiopathic) with ulcer of bilateral lower extremity (I87.313) Active confirmed Problem Ankle ulcer (486683859) 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) Active confirmed Problem Edema (983418420) Bilateral leg edema (R60.0) Active confirmed Problem Chronic foot ulcer, limited to breakdown of skin, right (L97.511) Active confirmed Problem Decubitus ulcer of left heel, stage 1 (L89.621) Active confirmed Problem 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) Active confirmed Problem Ankle ulcer (143667130) Non-pressure chronic ulcer of ankle, right, limited to breakdown of skin (L97.311) Active confirmed Problem Ankle ulcer (124848309) Ankle ulcer, right, limited to breakdown of skin (L97.311) Active confirmed Problem Ankle ulcer (841780478) Ankle ulcer, left, limited to breakdown of skin (L97.321) Active confirmed Problem Decubitus ulcer of right foot, stage 3 (L89.893) Active confirmed Problem Chronic venous hypertension with ulcer involving left side (I87.312) Active confirmed Problem Decubitus ulcer of foot, stage 3, unspecified laterality (L89.893) Active confirmed Problem Decubitus ulcer of right ankle, stage 2 (L89.512) Active confirmed Problem Venous hypertension, chronic, with ulcer, left (I87.312) Active confirmed Problem Chronic ulcer of right great toe with fat layer exposed (L97.512) Active confirmed Problem Ankle ulcer (610121781) Non-healing ulcer of left ankle, limited to breakdown of skin (L97.321) Active confirmed Problem Pressure injury of right ankle, stage 2 (L89.512) Active confirmed Problem Chronic ulcer of right foot (disorder) (292908937836042 00) Chronic ulcer of right foot with fat layer exposed (L97.512) Active confirmed Plan Of Treatment No Information Insurance Providers Payer Name Payer Address Payer Phone Subscriber Number Group Number Insured Name Patient Relationship to Insured Coverage Start Date Coverage End Date [employer] ADV PLAN [address] [place] [address] [id number] 3 [facility] Rick Self - patient is the insured
--- OUTSIDE RECORDS SUMMARY | 2025-04-19 10:53 | XMS_ITS | Encounter Summary ---
Author Organization [facility] Address [address] [place] [address] Care Team Providers Care Viticulturist Name Role Phone Ines Cole MD Primary Care Provider [phone] Suzi Moyer NP Unavailable [phone] Reason for Visit * Reason Comments Med Refill Encounter Details Date Type Department Care Team (Late st Contact Info) Description 08/24/2024 Refill [facility] [address] [place] [address] Kerri Le, DO [address] [facility] [address] [place] [address] Hypokalemia Social History Tobacco Use Types Packs/Day Years [...] any clubs o r organizations such as muslim groups, unions, fraternal or athletic groups, or [...] Recorded Patient Health Questionnaire-2 Score 0 08/26/2023 [facility] Occupat ional [facility] - Occupational Stress Questionnaire Answer Date Recorded [...] place to sleep or slept in a [facility] (including now)? Patient refused 01/01/2024 Sex and Gender Information Value Date Recorded Sex Assigned at Not on file Legal Sex Male 7:29 PM EDT Gender Identity Not on file Sexual Orientation Not on file documented as of this encounter Miscellaneous Notes * Telephone Encounter - Kiersten Fuller MA - 08/24/2024 9:52 AM EDT Approving, but needs appt for additional refills. documented in this encounter Plan of Treatment Upcoming Encounters Date Type Department Care Team (Late st Contact Info) Description 09/25/2025 12:30 PM EDT Office Visit [facility] [address] [place] [id number] Suzi Moyer NP [address] [place] [address] documented as of this encounter Visit Diagnoses Diagnosis Hypokalemia Hypopotassemia documented in this encounter Additional Health Concerns Assessment Noted Time PHQ-9 Depression Total Score: 0 02/23/20 24 1:00 PM EDT documented as of this encounter Care Teams Viticulturist Relationship Specialty Start Date End Date Ines Cole MD [address] [facility] [place], [place] [address] PCP - General Family Medicine 12/17/23 Suzi Moyer NP [address] [place] [id number] Nurse Practitioner Family Medicine 12/17/23 documented as of this encounter
--- OUTSIDE RECORDS SUMMARY | 2025-04-19 10:53 | XMS_ITS | Encounter Summary ---
Author Organization [facility] [employer] [facility] tem Address [facility]-[id number] [address] [place] [address] Care Team Providers Care Aircraft Mechanic Armament Name Role Phone Kamryn Rios MD Primary Care Provider [phone] Encounter Details Date Type Department Care Team (Late st Contact Info) Description 04/04/2021 Telephone [facility] [address] [place] [address] Mary Da Silva, MITCH Social [...] documented as of this encounter Care Teams Aircraft Mechanic Armament Relationship Specialty Start Date End Date Kamryn Rios MD [address], [address] [place] [address] PCP - General Internal Medicine 02/11/25 documented as of this encounter
--- OUTSIDE RECORDS SUMMARY | 2025-04-19 10:53 | XMS_ITS | Encounter Summary ---
Author Organization [facility] tem Address [facility]-[id number] [address] [place] [address] Care Team Providers Care Pile Fabric Knitter Name Role Phone Kamryn Rios MD Primary Care Provider Encounter Details Date Type Department Care Team (Late st Contact Info) Description 09/10/2020 Telephone [facility] [address] [place] [address] Mary Da Silva, MITCH Social [...] documented as of this encounter Care Teams Pile Fabric Knitter Relationship Specialty Start Date End Date Kamryn Rios MD [address], [address] [place] [address] PCP - General Internal Medicine 02/11/25 documented as of this encounter
--- OUTSIDE RECORDS SUMMARY | 2025-04-19 10:53 | XMS_ITS | Encounter Summary ---
Author Organization [facility] tem Address [facility][id number] [address] [place] [address] Care Team Providers Care Tailor Helper Name Role Phone Kamryn Rios MD Primary Care Provider [phone] Encounter Details Date Type Department Care Team (Late st Contact Info) Description 09/05/[address] [facility] [address] [place] [address] Karyn Meneses, MITCH Social History [...] documented as of this encounter Care Teams Tailor Helper Relationship Specialty Start Date End Date Kamryn Rios MD [address], [address] [place] [address] PCP - General Internal Medicine 02/11/25 documented as of this encounter
--- OUTSIDE RECORDS SUMMARY | 2025-04-19 10:53 | XMS_ITS | Encounter Summary ---
Author Organization [facility] tem Address [facility][id number] [address] [place] [address] Care Team Providers Care Sales Estimator Name Role Phone Kamryn Rios MD Primary Care Provider [phone] Encounter Details Date Type Department Care Team (Late st Contact Info) Description 02/12/2021 Telephone [facility] [address] [place] [address] Mary Da Silva, MITCH Social [...] have Coronavirus / COVID-19? Unable to assess 02/15/2021 11:18 AM EDT documented as of this encounter Plan of Treatment Not on file documented as of this encounter Visit Diagnoses Not on filedocumented in this encounter Additional Health Concerns Assessment Noted Time PHQ-9 Depression Total Score: 0 12/05/19 21 7:06 PM EST documented as of this encounter Care Teams Sales Estimator Relationship Specialty Start Date End Date Kamryn Rios MD [address], [address] [place] [address] PCP - General Internal Medicine 02/11/25 documented as of this encounter
--- OUTSIDE RECORDS SUMMARY | 2025-04-19 10:53 | XMS_ITS | Encounter Summary ---
Author Organization [facility] tem Address [facility] [id number] [address] [place] [address] Care Team Providers Care Optometric Tech Name Role Phone Kamryn Rios MD Primary Care Provider [phone] Encounter Details Date Type Department Care Team (Late st Contact Info) Description 07/19/2019 Telephone [facility] [address] [place] [address] Mary Da Silva, MITCH Social [...] documented as of this encounter Care Teams Optometric Tech Relationship Specialty Start Date End Date Kamryn Rios MD [address], [address] [place] [address] PCP - General Internal Medicine 02/11/25 documented as of this encounter
--- OUTSIDE RECORDS SUMMARY | 2025-04-19 10:53 | XMS_ITS | Encounter Summary ---
Author Organization [facility] [employer] [facility] tem Address [facility]-[id number] [address] [place] [address] Care Team Providers Care Autoglazier Name Role Phone Kamryn Rios MD Primary Care Provider [phone] Encounter Details Date Type Department Care Team (Late st Contact Info) Description 03/28/2019 Telephone [facility] [address] [place] [address] Mary Da Silva, MITCH Social [...] documented as of this encounter Care Teams Autoglazier Relationship Specialty Start Date End Date Kamryn Rios MD [address], [address] [place] [address] PCP - General Internal Medicine 02/11/25 documented as of this encounter
--- OUTSIDE RECORDS SUMMARY | 2025-04-19 10:53 | XMS_ITS | Encounter Summary ---
Author Organization [facility] tem Address [facility]-[id number] [address] [place] [address] Care Team Providers Care Fire Alarm Operator Name Role Phone Kamryn Rios MD Primary Care Provider [phone] Encounter Details Date Type Department Care Team (Late st Contact Info) Description 07/12/2019 Telephone [facility] [address] [place] [address] Mary Da Silva, MITCH Social [...] documented as of this encounter Care Teams Fire Alarm Operator Relationship Specialty Start Date End Date Kamryn Rios MD [address], [address] [place] [address] PCP - General Internal Medicine 02/11/25 documented as of this encounter
--- OUTSIDE RECORDS SUMMARY | 2025-04-19 10:53 | XMS_ITS | Encounter Summary ---
Author Organization [facility] tem Address [facility][id number] [address] [place] [address] Care Team Providers Care Brush Finisher Name Role Phone Kamryn Rios MD Primary Care Provider [phone] Encounter Details Date Type Department Care Team (Late st Contact Info) Description 04/22/2019 Telephone [facility] [address] [place] [address] Mary Da Silva, MITCH Social [...] documented as of this encounter Care Teams Brush Finisher Relationship Specialty Start Date End Date Kamryn Rios MD [address], [address] [place] [address] PCP - General Internal Medicine 02/11/25 documented as of this encounter
--- OUTSIDE RECORDS SUMMARY | 2025-04-19 10:53 | XMS_ITS | Encounter Summary ---
Author Organization [facility] tem Address [facility][id number] [address] [place] [address] Care Team Providers Care Vice Admiral Name Role Phone Kamryn Rios MD Primary Care Provider [phone] Encounter Details Date Type Department Care Team (Late st Contact Info) Description 07/16/2020 Telephone [facility] [address] [place] [address] Mary Da Silva, MITCH Social [...] have Coronavirus / COVID-19? Unable to assess 07/11/2020 1:05 PM EDT documented as of this encounter Plan of Treatment Not on file documented as of this encounter Visit Diagnoses Not on filedocumented in this encounter Additional Health Concerns Infection Onset Date Last Indicated Resolved Time COVID-19 Rule-Out 12/05/2020 12/05/2020 12/06/2020 12:15 PM EST documented as of this encounter Care Teams Vice Admiral Relationship Specialty Start Date End Date Kamryn Rios MD [address], [address] [place] [address] PCP - General Internal Medicine 02/11/25 documented as of this encounter
--- OUTSIDE RECORDS SUMMARY | 2025-04-19 10:53 | XMS_ITS | Encounter Summary ---
Author Organization [facility] [employer] [facility] tem Address [facility][id number] [address] [place] [address] Care Team Providers Care Ext Js Developer Name Role Phone Kamryn Rios MD Primary Care Provider [phone] Encounter Details Date Type Department Care Team (Late st Contact Info) Description 01/23/2020 Telephone [facility] [address] [place] [address] Mary Da Silva, MITCH Social [...] documented as of this encounter Care Teams Ext Js Developer Relationship Specialty Start Date End Date Kamryn Rios MD [address], [address] [place] [address] PCP - General Internal Medicine 02/11/25 documented as of this encounter
--- OUTSIDE RECORDS SUMMARY | 2025-04-19 10:53 | XMS_ITS | Encounter Summary ---
Author Organization [facility] [facility] tem Address [facility][id number] [address] [place] [address] Care Team Providers Care Salsa Dance Instructor Name Role Phone Kamryn Rios MD Primary Care Provider [phone] Encounter Details Date Type Department Care Team (Late st Contact Info) Description 03/26/2021 Telephone [facility] [address] [place] [address] Mary Da Silva, MITCH Social [...] documented as of this encounter Care Teams Salsa Dance Instructor Relationship Specialty Start Date End Date Kamryn Rios MD [address], [address] [place] [address] PCP - General Internal Medicine 02/11/25 documented as of this encounter
--- OUTSIDE RECORDS SUMMARY | 2025-04-19 10:53 | XMS_ITS | Encounter Summary ---
Author Organization [facility] [id number] [facility] tem Address [facility]-[id number] [address] [place] [address] Care Team Providers Care Tire Servicer Name Role Phone Kamryn Rios MD Primary Care Provider [phone] Encounter Details Date Type Department Care Team (Late st Contact Info) Description 04/03/2021 Telephone [facility] [address] [place] [address] Josy Frank CNA Social History [...] documented as of this encounter Care Teams Tire Servicer Relationship Specialty Start Date End Date Kamryn Rios MD [address], [address] [place] [address] PCP - General Internal Medicine 02/11/25 documented as of this encounter
--- OUTSIDE RECORDS SUMMARY | 2025-04-19 10:53 | XMS_ITS | Encounter Summary ---
Author Organization [facility] tem Address [facility] [place]-[id number] [address] [place] [address] Care Team Providers Care Drafter Marine Name Role Phone Kamryn Rios MD Primary Care Provider [phone] Encounter Details Date Type Department Care Team (Late st Contact Info) Description 08/04/2019 Telephone [facility] [address] [place] [address] Mary Da Silva, MITCH Social [...] documented as of this encounter Care Teams Drafter Marine Relationship Specialty Start Date End Date Kamryn Rios MD [address], [address] [place] [address] PCP - General Internal Medicine 02/11/25 documented as of this encounter
--- OUTSIDE RECORDS SUMMARY | 2025-04-19 10:53 | XMS_ITS | Encounter Summary ---
Author Organization [facility] tem Address [facility]-[id number] [address] [place] [address] Care Team Providers Care Associate Financial Representative Name Role Phone Kamryn Rios MD Primary Care Provider [phone] Encounter Details Date Type Department Care Team (Late st Contact Info) Description 07/25/[address] [facility] [address] [place] [address] Mary Da Silva, MITCH Social [...] documented as of this encounter Care Teams Associate Financial Representative Relationship Specialty Start Date End Date Kamryn Rios MD [address], [address] [place] [address] PCP - General Internal Medicine 02/11/25 documented as of this encounter
--- OUTSIDE RECORDS SUMMARY | 2025-04-19 10:53 | XMS_ITS | Encounter Summary ---
Author Organization [facility] tem Address [facility][id number] [address] [place] [address] Care Team Providers Care Filter Cleaner Name Role Phone Kamryn Rios MD Primary Care Provider [phone] Encounter Details Date Type Department Care Team (Late st Contact Info) Description 12/27/2019 Telephone [facility] [address] [place] [address] Mary Da Silva, MITCH Social [...] documented as of this encounter Care Teams Filter Cleaner Relationship Specialty Start Date End Date Kamryn Rios MD [address], [address] [place] [address] PCP - General Internal Medicine 02/11/25 documented as of this encounter
--- OUTSIDE RECORDS SUMMARY | 2025-04-19 10:54 | XMS_ITS | Encounter Summary ---
Author Organization [facility] Address [address] [place] [address] Care Team Providers Care Resident Intern Name Role Phone Ines Cole MD Primary Care Provider [phone] Suzi Moyer NP Unavailable [phone] Encounter Details Date Type Department Care Team (Late st Contact Info) Description 03/28/2025 Results Follow-Up [facility] [address] [place] [address] Suzi Moyer NP [address] [place], [place] [id number] Social History Tobacco Use Types Packs/Day Years [...] friends or relatives? Patient declined 01/01/2024 Attends Scientology Services Not on file 01/01 Do you belong to any clubs o r organizations such as evangelical groups, unions, fraternal or athletic groups, or [...] Recorded Patient Health Questionnaire-2 Score 0 08/26/2023 [facility] of Occupat ional Health [...] EDT Office Visit [facility] [address] [place] [address] Suzi Moyer NP [address] [place] [address] documented as of this encounter Visit Diagnoses Not on filedocumented in this encounter Additional Health Concerns Assessment Noted Time PHQ-9 Depression Total Score: 0 02/23/20 24 1:00 PM EDT documented as of this encounter Care Teams Resident Intern Relationship Specialty Start Date End Date Ines Cole MD [address] [facility] [place] [address] PCP - General Family Medicine 12/17/23 Suzi Moyer NP [address] [facility] [place] [address] Nurse Practitioner Family Medicine 12/17/23 documented as of this encounter
--- OUTSIDE RECORDS SUMMARY | 2025-04-19 10:54 | XMS_ITS | Encounter Summary ---
Author Organization [facility] Address [address] [place] [address] Care Team Providers Care Sap Bw Developer Name Role Phone Ines Cole MD Primary Care Provider [phone] Suzi Moyer NP Unavailable [phone] Encounter Details Date Type Department Care Team (Late st Contact Info) Description 03/11/2025 Telephone [facility] [address] [place] [address] Ines Cole MD [address] [place] [address] Social History Tobacco Use Types Packs/Day Years [...] friends or relatives? Patient declined 01/01/2024 Attends Judaism Services Not on file 01/01 Do you belong to any clubs o r organizations such as sikh groups, unions, fraternal or athletic groups, or [...] Recorded Patient Health Questionnaire-2 Score 0 08/26/2023 [facility] of Occupat ional Health - [...] encounter Miscellaneous Notes * Telephone Encounter - Yesica Reynoso - 03/11/2025 11:[address] Cole: ok to remove. Do they have staffing to go back out over the weekend if he has issues? Called and spoke with Ida and she took the verbal to remove the cath. She also states they have a24 emergency line if he has any issues. They will send a nurse to him if needed. Updated Dr. Cole. * Telephone Encounter - Yesica Reynoso - 03/11/2025 11:41 AM EDT Home health nurse Ida calling because pt was discharged from [facility] this morning, they did not have an order to remove the catheter that the pt has. Ida states that the pt normally straight caths at home and he would like to continue to do so, so she needs an order to remove the cath. Callback number [phone] documented in this encounter Plan of Treatment Upcoming Encounters Date Type Department Care Team (Late st Contact Info) Description 09/25/2025 12:30 PM EDT Office Visit [facility] [address] [place] [address] Suzi Moyer NP [address] [facility] [place] [address] documented as of this encounter Visit Diagnoses Not on filedocumented in this encounter Additional Health Concerns Assessment Noted Time PHQ-9 Depression Total Score: 0 02/23/20 24 1:00 PM EDT documented as of this encounter Care Teams Sap Bw Developer Relationship Specialty Start Date End Date Ines Cole MD [address] [facility] [place] [address] PCP - General Family Medicine 12/17/23 Suzi Moyer NP [address] [facility] [place], [place] [address] Nurse Practitioner Family Medicine 12/17/23 documented as of this encounter
--- OUTSIDE RECORDS SUMMARY | 2025-04-19 10:54 | XMS_ITS | Encounter Summary ---
Author Organization [facility] tem Address [facility]-[id number] [address] [place] [address] Care Team Providers Care Resort Host Name Role Phone Kamryn Rios MD Primary Care Provider [phone] Encounter Details Date Type Department Care Team (Late st Contact Info) Description 05/09/2019 Telephone [facility] - [facility] [address] [place] [address] Mary Da Silva, MITCH Social [...] documented as of this encounter Care Teams Resort Host Relationship Specialty Start Date End Date Kamryn Rios MD [address], [address] [place] [address] PCP - General Internal Medicine 02/11/25 documented as of this encounter
--- OUTSIDE RECORDS SUMMARY | 2025-04-19 10:54 | XMS_ITS | Encounter Summary ---
Author Organization [facility] Healthcare Address [address] [place] [address] Care Team Providers Care Senior Compliance Officer Name Role Phone Ines Cole MD Primary Care Provider [phone] Suzi Moyer NP Unavailable [phone] Encounter Details Date Type Department Care Team (Late st Contact Info) Description 04/18/2025 Patient Outreach [facility] [address] [place] [id number] Chanelle Fernandez, MITCH [address] [place], [place] [id number] Social History Tobacco Use Types Packs/Day Years [...] friends or relatives? Patient declined 01/01/2024 Attends Druze Services Not on file 01/01 Do you belong to any clubs o r organizations such as oriental orthodox groups, unions, fraternal or athletic groups, or [...] place to sleep or slept in a longterm (including now)? Patient refused 01/01/2024 Sex and Gender Information Value Date Recorded Sex Assigned at Not on file Legal Sex Male 7:29 PM EDT Gender Identity Not on file Sexual Orientation Not on file documented as of this encounter Plan of Treatment Upcoming Encounters Date Type Department Care Team (Late st Contact Info) Description 09/25/2025 12:30 PM EDT Office Visit [facility] [address] [place] [address] Suzi Moyer NP [address] [place] [address] documented as of this encounter Visit Diagnoses Not on filedocumented in this encounter Additional Health Concerns Assessment Noted Time PHQ-9 Depression Total Score: 0 02/23/20 24 1:00 PM EDT documented as of this encounter Care Teams Senior Compliance Officer Relationship Specialty Start Date End Date Ines Cole MD [address] [place] [address] PCP - General Family Medicine 12/17/23 Suzi Moyer NP [address] [place] [address] Nurse Practitioner Family Medicine 12/17/23 documented as of this encounter
--- OUTSIDE RECORDS SUMMARY | 2025-04-19 10:54 | XMS_ITS | Encounter Summary ---
Author Organization [facility] Address [address] [place] [address] Care Team Providers Care Dermatology Nurse Practitioner Name Role Phone Ines Cole MD Primary Care Provider [phone] Suzi Moyer NP Unavailable [phone] Encounter Details Date Type Department Care Team (Late st Contact Info) Description 12/26/2024 Abstract [facility] [address] [place] [address] Ines Cole MD [address] [place], [place] [id number] Social History Tobacco Use Types Packs/Day Years [...] friends or relatives? Patient declined 01/01/2024 Attends Mandaeism Services Not on file 01/01 Do you belong to any clubs o r organizations such as temple groups, unions, fraternal or athletic groups, or [...] Recorded Patient Health Questionnaire-2 Score 0 08/26/2023 [facility] - Occupational [...] place to sleep or slept in a custodial (including now)? Patient refused 01/01/2024 Sex and [...] EDT Office Visit [facility] [address] [place] [address] Suzi Moyer NP [address] [place] [address] documented as of this encounter Visit Diagnoses Not on filedocumented in this encounter Additional Health Concerns Assessment Noted Time PHQ-9 Depression Total Score: 0 02/23/20 24 1:00 PM EDT documented as of this encounter Care Teams Dermatology Nurse Practitioner Relationship Specialty Start Date End Date Ines Cole MD [address] [place] [address] PCP - General Family Medicine 12/17/23 Suzi Moyer NP [address] [place] [address] Nurse Practitioner Family Medicine 12/17/23 documented as of this encounter
--- OUTSIDE RECORDS SUMMARY | 2025-04-19 10:54 | XMS_ITS | Encounter Summary ---
Author Organization [facility] Address [address] [place] [address] Care Team Providers Care Machine Sizer Name Role Phone Ines Cole MD Primary Care Provider [phone] Suzi Moyer NP Unavailable [phone] Encounter Details Date Type Department Care Team (Late st Contact Info) Description 03/15/2025 Abstract [facility] [address] [place] [address] Ines Cole MD [address] [place], [place] [id number] Social History Tobacco Use Types Packs/Day Years [...] friends or relatives? Patient declined 01/01/2024 Attends Orthodox Services Not on file 01/01 Do you belong to any clubs o r organizations such as quaker groups, unions, fraternal or athletic groups, or [...] place to sleep or slept in a long term (including now)? Patient refused 01/01/2024 Sex and [...] EDT Office Visit [facility] [address] [place] [address] Suzi Moyer NP [address] [place] [address] documented as of this encounter Visit Diagnoses Not on filedocumented in this encounter Additional Health Concerns Assessment Noted Time PHQ-9 Depression Total Score: 0 02/23/20 24 1:00 PM EDT documented as of this encounter Care Teams Machine Sizer Relationship Specialty Start Date End Date Ines Cole MD [address] [place] [address] PCP - General Family Medicine 12/17/23 Suzi Moyer NP [address] [place] [address] Nurse Practitioner Family Medicine 12/17/23 documented as of this encounter
--- OUTSIDE RECORDS SUMMARY | 2025-04-19 10:54 | XMS_ITS | Encounter Summary ---
Author Organization [facility] Address [address] [place] [address] Care Team Providers Care Kitchen Hand Name Role Phone Ines Cole MD Primary Care Provider [phone] Suzi Moyer NP Unavailable [phone] Encounter Details Date Type Department Care Team (Late st Contact Info) Description 04/10/2025 Telephone [facility] [address] [place] [address] Ines Cole MD [address] [place] [address] Social History Tobacco Use Types [...] Recorded Patient Health Questionnaire-2 Score 0 08/26/2023 [facility] - Occupational [...] place to sleep or slept in a care home (including now)? Patient refused 01/01/2024 Sex and Gender Information Value Date Recorded Sex Assigned at Not on file Legal Sex Male 7:29 PM EDT Gender Identity Not on file Sexual Orientation Not on file documented as of this encounter Miscellaneous Notes * Telephone Encounter - Yvrose Bruce - 04/10/2025 12:55 PM EDT Pt was seen today wound care done today pt has new wounds -2 bi lat buttocks and coccyx Can we have orders for soap and water cleanse, apply tri ad cream, sacrum foam dressing 3x weekly Fax is [phone] documented in this encounter Plan of Treatment Upcoming Encounters Date Type Department Care Team (Late st Contact Info) Description 09/25/2025 12:30 PM EDT Office Visit [facility] [address] [place] [address] Suzi Moyer NP [address] [place], [place] [id number] documented as of this encounter Visit Diagnoses Not on filedocumented in this encounter Additional Health Concerns Assessment Noted Time PHQ-9 Depression Total Score: 0 02/23/20 24 1:00 PM EDT documented as of this encounter Care Teams Kitchen Hand Relationship Specialty Start Date End Date Ines Cole MD [address] [place], [place] [id number] PCP - General Family Medicine 12/17/23 Suzi Moyer NP [address] [place] [address] Nurse Practitioner Family Medicine 12/17/23 documented as of this encounter
--- OUTSIDE RECORDS SUMMARY | 2025-04-19 10:54 | XMS_ITS | Encounter Summary ---
Author Organization [facility] Healthcare Address [address] [place] [address] Care Team Providers Care Elementary Education Teacher Name Role Phone Ines Cole MD Primary Care Provider [phone] Suzi Moyer NP Unavailable [phone] Encounter Details Date Type Department Care Team (Late st Contact Info) Description 04/10/2025 Patient Outreach [facility] POP[facility]ATION [facility] [address] [place] [phone] Chanelle Fernandez, MITCH [address] [place], [place] [id number] Social History Tobacco Use Types Packs/Day Years [...] friends or relatives? Patient declined 01/01/2024 Attends Restorationism Services Not on file 01/01 Do you belong to any clubs o r organizations such as congregational groups, unions, fraternal or athletic groups, or [...] Recorded Patient Health Questionnaire-2 Score 0 08/26/2023 [facility] - Occupational [...] place to sleep or slept in a fci (including now)? Patient refused 01/01/2024 Sex and Gender Information Value Date Recorded Sex Assigned at Not on file Legal Sex Male 7:29 PM EDT Gender Identity Not on file Sexual Orientation Not on file documented as of this encounter Progress Notes * Chanelle Fernandez RN - 04/10/2025 10:08 AM EDT Called and spoke to pt. States his hh nurse is at him home at time of call. Informed pt ccm completed the requested paperwork and sent in for his power chair. Pt states he was told his insurance approved it and that it would be a few weeks for it to arrive to his home. Pt will keep ccm updated and call with any questions or needs. * Chanelle Fernandez RN - 04/10/2025 10:08 AM EDT Per other encounter hh needs wound care orders. Faxed orders as requested. documented in this encounter Miscellaneous Notes * Addendum Note - Chanelle Fernandez RN - 04/10/2025 10:08 AM EDTAddended by: CHANELLE FERNANDEZ on: 04/10/2025 03:32 PM Modules accepted: Orders documented in this encounter Plan of Treatment Upcoming Encounters Date Type Department Care Team (Late st Contact Info) Description 09/25/2025 12:30 PM EDT Office Visit [facility] [address] [place] [address] Suzi Moyer NP [address] [place] [address] documented as of this encounter Visit Diagnoses Diagnosis Primary hypertension (CMS/HCC)- Primary Unspecified essential hypertension Paraplegia, incomplete (CMS/HCC) Wound of sacral region, initial encounter documented in this encounter Additional Health Concerns Assessment Noted Time PHQ-9 Depression Total Score: 0 02/23/20 24 1:00 PM EDT documented as of this encounter Care Teams Elementary Education Teacher Relationship Specialty Start Date End Date Ines Cole MD [address] [place] [address] PCP - General Family Medicine 12/17/23 Suzi Moyer NP [address] [place], [place] [phone] Nurse Practitioner Family Medicine 12/17/23 documented as of this encounter
--- OUTSIDE RECORDS SUMMARY | 2025-04-19 10:54 | XMS_ITS | Encounter Summary ---
Author Organization [facility] Healthcare Address [address] [place] [address] Care Team Providers Care Mill Worker Name Role Phone Ines Cole MD Primary Care Provider [phone] Suzi Moyer NP Unavailable [phone] Encounter Details Date Type Department Care Team (Late st Contact Info) Description 04/03/2025 Patient Outreach [facility] POPULATION [facility]ALTH [address] [place] [phone] Chanelle Fernandez, MITCH [address] [place], [place] [phone] Social History Tobacco Use Types Packs/Day Years [...] friends or relatives? Patient declined 01/01/2024 Attends Church Services Not on file 01/01 Do you belong to any clubs o r organizations such as spiritism groups, unions, fraternal or athletic groups, or [...] Progress Notes * Chanelle Fernandez RN - 04/03/2025 9:29 AM EDT Office has not received guidelines for power wc from [employer]. Called and spoke to Margot at [facility], she will email guidelines to [facility]. April 04, 2025 11:57 AM Chanelle Fernandez RN viewed documentation requirements. Will fax ov note once completed. Spoke to pt, informed that we are working on the paperwork. Pt denies other needs at this time. April 05, 2025 4:48 PM Chanelle carvajal had received paperwork from [facility], faxed back signed forms. * Chanelle Fernandez RN - 04/03/2025 9:29 AM EDT Faxed ov note to [facility] documented in this encounter Plan of Treatment Upcoming Encounters Date Type Department Care Team (Late st Contact Info) Description 09/25/2025 12:30 PM EDT Office Visit [facility] [address] [place] [phone] Suzi Moyer, ANTHONY [address] [place] [address] documented as of this encounter Visit Diagnoses Diagnosis Primary hypertension (CMS/HCC)- Primary Unspecified essential hypertension Paraplegia, incomplete (CMS/HCC) documented in this encounter Additional Health Concerns Assessment Noted Time PHQ-9 Depression Total Score: 0 02/23/20 24 1:00 PM EDT documented as of this encounter Care Teams Mill Worker Relationship Specialty Start Date End Date Ines Cole MD [address] [place] [address] PCP - General Family Medicine 12/17/23 Suzi Moyer NP [address] [place] [address] Nurse Practitioner Family Medicine 12/17/23 documented as of this encounter
--- OUTSIDE RECORDS SUMMARY | 2025-04-19 10:54 | XMS_ITS | Clinical Summary ---
Author Organization [facility] Healthcare Address [address] [place] [address] Care Team Providers Care Audio Visual Director Name Role Phone Ines Cole MD Primary Care Provider [phone] Suzi Moyer NP Unavailable [phone] Allergies No known active allergies Medications zinc gluconate 50 MG tablet 1 (one) time each day at the same time. Active ibuprofen 200 MG tablet 1 tablet with food or milk as needed Orally pt taking daily Active aspirin 81 MG EC tablet 1 (one) time each day at the same time. Active ascorbic acid (Vitamin C) 250 MG chewable tablet 1 (one) time each day at the same time. Active Multiple Vitamin (MULTIVITAMIN ADULT PO) 1 (one) time each day at the same time. Active L-lysine 1000 MG tablet Take by mouth Active potassium chloride CR (Klor-Con) 10 MEQ ER tabletIndications: Hypokalemia Take 1 tablet (10 mEq) by mouth in the evening with food 90 tablet 1 11/21/20 24 Active cholecalciferol (Vitamin D-3) 1.25 MG (33090 UT) capsule Take 50,000 Units by mouth every 7 (seven) days 02/02/20 25 Active acetaminophen (Tylenol) 500 MG tablet Take 1,000 mg by mouth in the morning and 1,000 mg at noon and 1,000 mg in the evening and 1,000 mg before bedtime. 01/26/20 25 Active oxygen (O2) gas Inhale 2 L/min continuously via nasal canula Active cephalexin (Keflex) 500 MG capsule 03/24/20 25 Active carvedilol (Coreg) 3.125 MG tabletIndications: Primary hypertension (CMS/HCC) Take 1 tablet (3.125 mg) by mouth in the morning and 1 tablet (3.125 mg) in the evening. Take with meals. 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 Take 1 tablet (325 mg) by mouth Daily 90 tablet 1 03/27/20 25 Active atorvastatin (Lipitor) 40 MG tabletIndications: Mixed hyperlipidemia (CMS/HCC) Take 1 tablet (40 mg) by mouth Daily 90 tablet 1 03/27/20 25 Active furosemide (Lasix) 20 MG tabletIndications: Primary hypertension (CMS/HCC) Take 2 tablets (40 mg) by mouth Daily 180 tablet 1 03/27/20 25 Active tamsulosin (Flomax) 0.4 MG 24 hr capsuleIndications :Neurogenic bladder Take 1 capsule (0.4 mg) by mouth at bedtime 90 capsule 1 03/27/20 25 Active omeprazole (PriLOSEC) [address] capsuleIndications :Gastroesophageal reflux disease, unspecified whether esophagitis present Take 1 capsule (40 mg) by mouth in the morning. Take before meals. Do not crush or chew. 90 capsule 1 03/27/20 25 Active citalopram (CeleXA) 20 MG tabletIndications: Recurrent major depressive disorder, in partial remission (HCC) (CMS/HCC) Take 1 tablet (20 mg) by mouth Daily 90 tablet 1 03/27/20 25 Active potassium chloride CR (K-Tab) 20 MEQ ER tabletIndications: Hypokalemia TAKE 1 TABLET BY MOUTH DAILY (DO NOT CRUSH CHEW OR SPLIT) 90 tablet 1 03/31/20 25 Active rosuvastatin (Crestor) 10 MG tablet 1 (one) time each day at the same time. 03/03/20 025 Discontin ued(Med list cleanup) potassium chloride CR (K-Tab) 20 MEQ ER tabletIndications: Hypokalemia Take 1 tablet (20 mEq) by mouth Daily Do not crush, chew, or split. 90 tablet 1 09/21/20 24 025 Discontin ued(Reord er) furosemide (Lasix) 20 MG tabletIndications: Acute bilateral venous stasis dermatitis Take 2 tablets (40 mg) by mouth Daily 180 tablet 1 11/22/20 24 04/28/2 025 Discontin ued(Reord er) omeprazole (PriLOSEC) [address] capsuleIndications :Gastroesophageal reflux disease, unspecified whether esophagitis present Take 1 capsule (40 mg) by mouth in the morning. Take before meals. Do not crush or chew.. 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 TAKE 1 TABLET BY MOUTH DAILY 90 tablet 1 01/05/20 25 025 Discontin ued(Reord er) citalopram (CeleXA) 20 MG tablet 03/10/20 25 025 Discontin ued(Reord er) carvedilol (Coreg) 3.125 MG tablet 03/10/20 25 025 Discontin ued(Reord er) tamsulosin (Flomax) 0.4 MG 24 hr capsule Take 0.4 mg by mouth at bedtime 02/02/20 25 025 Discontin ued(Reord er) atorvastatin (Lipitor) 40 MG tablet Take 40 mg by mouth Daily 03/10/20 25 025 Discontin ued(Reord er) Active Problems Problem Noted Date Diagnosed Date 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 02/15/2025 Surgical wound present 02/15/2025 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 species 02/12/2025 Sepsis 02/11/2025 Localized edema 02/01/2025 Muscle weakness 02/01/2025 Below-knee amputation of right lower extremity 0 01/30/2025 Traumatic below-knee amputation (HCC) 01/30/2025 Difficulty walking 01/30/2025 Unable to ambulate 01/30/2025 Gangrene of right foot 01/20/2025 Gangrenous disorder 01/20/2025 Atherosclerosis of artery of lower extremity Critical limb ischemia of ri ght lower extremity with gangrene 03/24/2024 Overview (03/27/2025): PVR, I ordered, will be done at the [facility], will see him after and decide further plans. Continue wound care. 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 Dependence on supplemental oxygen 06/08/2023 Dependence on wheelchair 06/08/2023 Primary hypertension 06/08/2023 Assessment & Plan (02/24/2024 8:03 PM EDT): Discussed current management plan. Goal BP less then [...] compliance discussed. Patient voices understanding of meds. Gastroesophageal reflux disease 06/08/2023 Assessment & Plan (02/24/2024 8:03 PM EDT): Stable with omeprazole Incomplete paraplegia 06/08/2023 Assessment & Plan (02/24/2024 8:01 PM EDT): Due to patient's diagnosis of neuromuscular weakness and incomplete paraplegia, and complete immobility due to severe physical disability and being wheelchair bound, this creates mobility limitations that significantly impairs a patients ability to participate in one or more mobility related activities of daily living (MRADLS) within the home. The use of a power wheelchair will significantly improve a patient's ability to participate in MRADLS in the home as well as decrease safety concerns. The mobility deficits cannot be sufficiently and safely resolved with the use of an appropriately fitted cane or walker. Both cane and walker have been trialed and errored. Patient does not have sufficient upper extremity function to self- propel an optimally configured manual wheelchair in the home. Due to patient's DX this also creates a difficulty with lower extremity function. The patient is able to safely transfer to and from the electric wheelchair, operate tiller steering system and maintain postural stability and position while operating the power chair in the home. The patient s mental capabilities and physical capabilities are sufficient for safe mobility using the power wheelchair. The patient has not expressed an unwillingness to use the power chair in the home. A scooter will not work for patient in the home due to larger turning radius. A PT evaluation has been reviewed and is in agreement with these findings. Mixed hyperlipidemia 06/08/2023 Assessment & Plan (02/24/2024 8:06 PM EDT): On a statin Neurogenic bladder 06/08/2023 Assessment & Plan (02/24/2024 8:03 PM EDT): Self caths. 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 with unspecified severity 06/08/2023 Assessment & Plan (02/24/2024 8:04 PM EDT): Followed by wound care Non-pressure chronic ulcer o f other part of right foot with other specified severity 06/08/2023 Assessment & Plan (02/24/2024 8:05 PM EDT): Followed by wound care Obesity (BMI 30.0-34.9) 06/08/2023 Assessment & Plan (02/24/2024 8:05 PM EDT): Stable EMMA treated with BiPAP 06/08/2023 Osteopenia of multiple sites 06/08/2023 Other secondary scoliosis, thoracolumbar region 06/08/2023 Recurrent major depressive d isorder, in partial remission (HCC) 06/08/2023 Assessment & Plan (02/24/2024 8:06 PM EDT): Mood is stable on current medications. Reviewed importance of healthy diet and exercise, stress management, and social support. Venous insufficiency (chronic) (peripheral) 05/30 Assessment & Plan (02/24/2024 8:03 PM EDT): Followed by vascular. Continue compression stockings to BLE, elevate intermittently. Cellulitis of right lower extremity 12/05/2020 Assessment & Plan (02/24/2024 8:04 PM EDT): Followed by wound care Cellulitis of right lower limb 12/05/2020 Venous stasis ulcer of left lower leg with edema of left lower leg 10/06/2018 Assessment & Plan (02/24/2024 8:04 PM EDT): Followed by wound care. Neuromuscular weakness 02/11/2018 Assessment & Plan (02/24/2024 8:02 PM EDT): Requires assistance with ADLS. 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 02/24/2024 Mild episode of recurrent ma kamran depressive disorder (HCC) 06/08/2023 02/24/2024 Pancytopenia 06/08/2023 02/24/2024 Ulcer of toe 06/08/2023 02/24/2024 Encounters Date Type Department Care Team Description 04/18/2025 Patient Outreach [facility] [address] [place] [address] Chanelle Fernandez RN 04/17/2025 Telephone [facility] [address] [place] [phone] Ines Cole MD 04/10/2025 Telephone [facility] [address] [place] [phone] Ines Cole MD 04/10/2025 Patient Outreach [place] [id number] [place] [address] Chanelle Fernandez RN 04/03/2025 Patient Outreach [place] [id number] [place] [address] Chanelle Fernandez, MITCH 03/31/2025 Refill [facility] [address] [place] [address] Suzi Moyer NP Hypokalemia 03/29/2025 Patient Outreach [facility] [address] [place] [address] Chanelle Fernandez RN 03/28/2025 Results Follow-Up [facility] [address] [place] [phone] Suzi Moyer NP 03/28/2025 Patient Outreach [facility] [address] 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; Gastroesophageal reflux disease, unspecified whether esophagitis present; EMMA treated with BiPAP; Incomplete paraplegia (CMS/HCC); Mixed hyperlipidemia (CMS/HCC); Dependence on supplemental oxygen; Neurogenic bladder; Recurrent major depressive disorder, in partial remission (HCC) ([facility]/HCC); PAD (peripheral artery disease) ([facility]/HCC) 03/27/2025 Bamboo flowsheet [facility] [address] [facility] [place] [phone] Suzi Moyer NP 03/27/2025 Travel 03/20/2025 Patient Outreach [facility] [address] [place] [address] Chanelle Fernandez RN 03/15/2025 Abstract [facility] [address] [facility] [place] [phone] Ines Cole MD 03/14/2025 Patient Outreach [facility] [address] [place] [address] Chanelle Fernandez RN 03/11/2025 Telephone [facility] [address] [facility] [place] [phone] Ines Cole MD 02/23/2025 Patient Outreach [facility] [address] [place] [address] Chanelle Fernandez RN 02/17/2025 Patient Outreach [facility] [place] [address] [place] [address] Rafia Gonzalez, [employer] 02/10/2025 Patient Outreach [facility] [place] [address] [place] [address] Rafia Gonzalez, [employer] P[employer] 02/06/2025 Telephone [facility] [address] [place] [phone] Ines Cole MD 02/03/2025 Patient Outreach [facility] [place] [address] [place] [address] Rafia Gonzalez, [employer] 01/30/2025 Telephone [facility] [address] [place] [phone] Ines Cole MD 01/20/2025 Clinisync Result Encounter [facility] External Department Unsolicited Provider, Generic External Data from Last 3 Months Immunizations Immunization Administration Dates Next Due Influenza, High Dose Seasona l, Preservative Free 08/29/2024,08/27/2022,08/27/2021,11/21,09/06/2018 Influenza, High-dose Seasona l, Quadrivalent, Preservative Free 08/26/2023,08/27/2022,08/27/2021,09/26,09/06/2018,09/21/2017,09/15/2016 Influenza, injectable, quadrivalent 11/22/2020 Pfizer Purple Cap SARS-CoV-2 Vaccination 08/29/2024,11/20/2021,02/06/2021 Pneumococcal Conjugate PCV 13 09/10/2015 Pneumococcal Polysaccharide PPSV23 05/01/2016, SARS-COV-2 (COVID-19) vaccin e, mRNA, spike protein, LNP, PF, jak-sucrose, 30 mcg/0.3 mL 08/29/2024 Zoster, Recombinant 08/28/2023,05/27/2023 Family History Medical History Relation Name Comments Brain Aneurysm Brother Heart disease Brother COPD Father Lung disease Father smoker Father Bone cancer Mother Breast cancer Mother Relation Name Status Comments Brother Father Mother Social History Tobacco Use Types Packs/Day Years Used Date Smoking Tobacco: Never Smokeless Tobacco: Never Tobacco Cessation:Counseling Given: Not Answered Alcohol Use Standard Drinks/Week Comments Not Currently [...] friends or relatives? Patient declined 01/01/2024 Attends [employer] Not on file 01/01 Do you belong to any clubs o r organizations such as yarsani groups, unions, fraternal or athletic groups, or [...] Recorded Patient Health Questionnaire-2 Score 0 08/26/2023 [facility] - Occupational [...] place to sleep or slept in a alf (including now)? Patient refused 01/01/2024 Sex and Gender Information Value Date Recorded Sex Assigned at Not on file Legal Sex Male 7:29 PM EDT Gender Identity Not on file Sexual Orientation Not on file Last Filed Vital Signs Vital Sign Reading Time Taken Comments Blood Pressure 124/62 03/27/2025 1:52 PM EDT Pulse 60 03/27/2025 1:52 PM EDT Temperature 36.4 C (97.6 F) 08/26/2023 11:17 AM EDT Respiratory Rate 18 08/26/2023 11:17 AM EDT Oxygen Saturation 90% 03/27/2025 1:52 PM EDT Inhaled Oxygen Concentration - - Weight 113 kg (250 lb) 02/23/2024 12:48 PM EDT Height 182.9 cm (6') 08/29/2024 12:38 PM EDT Body Mass Index 33.91 02/23/2024 12:48 PM EDT Plan of Treatment Upcoming Encounters Date Type Department Care Team (Late st Contact Info) Description 09/25/2025 12:30 PM EDT Office Visit [facility] [address] [place] [address] Suzi Moyer NP [address] [place] [address] Health Maintenance Due Date Last Done Comments Colonoscopy Discontinued 04/10/2014 Pneumococcal Vaccine: 65+ Years Completed 05/01/2016, 09/10/2015, 11/30/2005 Colorectal Cancer Screening Discontinued FOBT Discontinued 03/05/2024 Influenza Vaccine Completed 08/29/2024, , 08/27/2022, Additional history exists CT Colonography Discontinued FIT-DNA Discontinued FIT Discontinued Sigmoidoscopy Discontinued Procedures Procedure Name Priority Date/Time Associated Diagnosis Comments VITAMIN D 25 HYDROXY TOTAL Routine 03/27/2025 2:40 PM EDT Vitamin D deficiency IRON + TRANSFERRIN + TIBC Routine 03/27/2025 2:40 PM EDT Iron deficiency CBC (INCLUDES DIFF/PLT) Routine 03/27/2025 2:40 PM EDT Iron deficiency COMPREHENSIVE METABOLIC PANEL Routine 03/27/2025 2:40 PM EDT Primary hypertension (CMS/HCC) BLOOD CULTURE 2 Routine 01/20/2025 11:39 AM EST BLOOD CULTURE 1 Routine 01/20/2025 11:34 AM EST ANAEROBIC CULTURE Routine 01/20/2025 11: 25 AM EST AEROBIC CULTURE Routine 01/20/2025 11:25 AM EST OCCULT BLOOD X 1, STOOL Routine 03/05/2024 8:22 AM EDT Anemia, unspecified type COLONOSCOPY Routine 04/10/2014 12:00 PM EDT from Last 3 Months or Most Recently Relevant to Health Maintenance Results * (ABNORMAL) Iron + transferrin + TIBC [...] Performing Organization Information Site ID: QPT Name: [facility] Address: [address] [place] [address], [address] [place] [phone] Director: Maninder Alves MD Suzi Moyer NP LAB BLOOD ORDERABLES Final Resu lt [facility] * Vitamin D 25 hydroxy (03/27/2025 2:40 [...] D, (D2,D3), LC/MS/MS is recommended: order code 49124 (patients >2yrs). See Note 1 Note 1 For additional information, please refer to http://education.ScholarPRO.Floq/faq/RZU794 (This link is being provided for informational/ educational purposes only.) Blood Venous blood specimen / Unknown 03/27/2025 2:40 PM EDT 03/27/2025 2:41 PM EDT Narrative Resulting Agency Comment Performing Organization Information Site ID: QPT Name: [facility] Address: [address] [place] [phone] Director: Maninder Alves MD us Suzi Moyer [...] Performing Organization Information Site ID: QPT Name: [facility] Address: [address] [place] [address], [address] [place] [phone] Director: Maninder Alves MD Suzi Myoer NP LAB BLOOD ORDERABLES Final Resu lt [...] Performing Organization Information Site ID: QPT Name: [facility] Address: [address] [place] [address] Director: Maninder Alves MD us Suzi Moyer MAINTENANCE INSTRUCTOR LAB BLOOD ORDERABLES Final Resu lt [facility] * BLOOD CULTURE 2 (01/20/2025 11:39 AM EST) BLOOD CULTURE 2 Blood Culture 2 NG5D NO GROWTH AT 5 DAYS.^NO GROWTH AT 5 DAYS. TB 01/20/2025 11:3 9 AM EST 01/20/2025 11:43 AM EST Narrative [facility] - 01/25/2025 2:21 PM EST us Generic External Data Provider LAB BLOOD ORDERAB LES Final Result Performing Organization Address [facility]/ZIP Co de Phone Number [facility] TB * BLOOD CULTURE 1 (01/20/2025 11:34 AM EST) BLOOD CULTURE 1 Blood Culture 1 NG5D NO GROWTH AT 5 DAYS.^NO GROWTH AT 5 DAYS. TB 01/20/2025 11:3 4 AM EST 01/20/2025 11:43 AM EST Narrative [facility] - 01/25/2025 2:22 PM EST us Generic External Data Provider LAB BLOOD ORDERAB LES Final Result Performing Organization Address City/[facility]/ZIP Co de Phone Number [facility] TB * ANAEROBIC CULTURE (01/20/2025 11:25 AM EST) ANAEROBIC CULTURE Anaerobic Culture TB ANAEROBIC CULTURE *ABNORMAL* TB ANAEROBIC CULTURE Mixed anaerobic organisms, none predominating . TB 01/20/2025 11:2 5 AM EST 01/20/2025 11:42 AM EST Narrative [facility] - 01/25/2025 5:09 PM EST RT FOOT us Generic External Data Provider LAB BLOOD ORDERAB LES Final Result Performing Organization Address [facility] Co de Phone Number [facility] * AEROBIC CULTURE (01/20/2025 11:25 AM EST) AEROBIC CULTURE Aerobic Culture [facility] AER[facility] Mixed skin constanza including multiple gram negative rods. [facility] Performed at: - [facility] [address] [place], [place] [id number] [facility] AEROB[facility] Process Improvement Engineer: Eduardo De Leon PhD, Phone: [phone] [facility] 01/20/2025 11:2 5 AM EST 01/20/2025 11:42 AM EST Narrative [facility] - 01/25/2025 5:09 PM EST RT FOOT us Generic External Data Provider LAB BLOOD ORDERAB LES Final Result Performing Organization Address [facility] de Phone Number [facility] * (ABNORMAL) Occult blood x 1, stool (03/05/2024 8:22 AM EDT) Pathologist [facility] MICRO NUMBER [id number] [facility] SPECIMEN QUALITY Adequate [facility] SOURCE INSURE (TM) FOBT TEST CARD [facility] STATUS FINAL [facility] FECAL GLOBIN RESULT SEE NOTE(A) [facility] Comment: Detected Test results may be invalid as no date of collection was provided. Specimens are stable for 30 days. NO COLLECTION DATE RECEIVED. WE HAVE USED THE DATE THE SPECIMEN WAS RECEIVED BY THIS LABORATORY THE COLLECTION DATE. IF THIS IS INCORRECT, PLEASE CONTACT CLIENT SERVICES. PHONE NUMBER: [phone] Stool Rectal contents / Unknown 03/04/2024 1:17 PM EDT Narrative [facility] - 03/05/2024 8:22 AM EDT SPLIT 02/23/2024 FROM [id number] Resulting Agency Comment Performing Organization Information Site ID: QPT Name: [facility] Address: [address] [place] [address], [address] [place] [phone] Director: Maninder Alves MD us Suzi Moyer NP LAB BODY FLUIDS AND STOOLS [employer] Final Result [facility] * Colonoscopy (04/10/2014 12:00 PM EDT) Anatomical Region Laterality Modality Endoscopy 04/10/2014 12:0 0 PM EDT Narrative 04/10/2014 12:00 PM EDT PERFORMED AT [facility] LOCATION:[id number] Procedure Note CONVERSION, GENERIC - 04/16/2023 PERFORMED AT [facility] LOCATION:[id number] Quan Guerra ENDOSCOPY PROCEDURE ORDERABLES Final Result from Last 3 Months or Most Recently Relevant to Health Maintenance Insurance [employer] Advance Directives Documents on File Type Date Recorded Patient Power House Control Room Operator Expl anation Advance Directives and Living Will 09/15/2018 2001-05-13 Living Wi ll Advance Directives and Living Will 09/15/2018 2001-05-13 Healthcar e POA Care Teams Audio Visual Director Relationship Specialty Start Date End Date Ines Cole MD [address] [facility] [place] [address] PCP - General Family Medicine 12/17/23 Suzi Moyer NP [address] [facility] [place] [address] Nurse Practitioner Family Medicine 12/17/23
--- OUTSIDE RECORDS SUMMARY | 2025-04-19 10:55 | XMS_ITS | Encounter Summary ---
Author Organization [facility] Address [address] [place] [address] Care Team Providers Care Drug Safety Data Management Specialist Name Role Phone Kerri Le DO Unavailable [phone] Mimi, Kerri Chappell DO Primary Care Provider [phone] Ines Cole MD Primary Care Provider [phone] Suzi Moyer NP Unavailable [phone] Encounter Details Date Type Department Care Team (Late st Contact Info) Description 08/25/2023 Abstract [facility] [address] [facility] [place] [phone] Mimi Kerri Ta DO [address] [facility] 200 [place] [address] Social History Tobacco Use Types Packs/Day Years Used Date Smoking Tobacco: Never Alcohol Use Standard Drinks/Week Comments Never 0 (1 standard drink = 0.6 oz pur e alcohol) caffeine: 1-2 cups per day PHQ-2 Answer Date Recorded Patient Health Questionnaire-2 Score 0 08/26/2023 Sex and Gender Information Value Date Recorded Sex Assigned at Not on file Legal Sex Male 7:29 PM EDT Gender Identity Not on file Sexual Orientation Not on file documented as of this encounter Functional Status * Over the past 2 weeks, how often have you been bothered by any of the following problems? Question Answer Date of Assessment Author Little interest or pleasure in doing things Not at all 08/26/2023 11:12 AM CAROLAT Tiara Eagle MA Feeling down, depressed, or hopeless Not at all 08/26/2023 11:12 AM EDT Tiara Eagle MA Patient Health Questionnaire-2 Score 0 08/26/2023 11:12 AM EDT Tracy Eagle MA documented as of this encounter Plan of Treatment Upcoming Encounters Date Type Department Care Team (Late st Contact Info) Description 09/25/2025 12:30 PM EDT Office Visit [facility] [address] [place] [address] Suzi Moyer NP [address] [facility] [place] [address] documented as of this encounter Visit Diagnoses Not on filedocumented in this encounter Care Teams Drug Safety Data Management Specialist Relationship Specialty Start Date End Date Kerri Le DO [address] [facility] 200 [facility] [place] [address] PCP - Shoshana LUNA 04/30/23 10/29/23 Kerri Le DO [address] [facility] 200 [place] [address] PCP - General Family Medicine 05/21/23 12/16/23 Ines Cole MD [address] [place], [place] [id number] PCP - General Family Medicine 12/17/23 Suzi Moyer NP [address] [facility] [place] [address] Nurse Practitioner Family Medicine 12/17/23 documented as of this encounter
--- OUTSIDE RECORDS SUMMARY | 2025-04-19 10:55 | XMS_ITS ---
Author Organization [facility] Address [address] [place] [address] Care Team Providers Care Field Clinical Engineer Name Role Phone Ines Cole MD Primary Care Provider [phone] Suzi Moyer NP Unavailable [phone] Chronic Care Management (CCM) Status:Enrolled (Active) Start date:04/16/2023 Enrollment date:04/16/2023 Overview 12/16/23, 10:28 AM - Chanelle Fernandez RN- Patient gives verbal consent to be enrolled in CCM Programand understands there could be a bill for this service. Case Team Name Relationship Phone Chanelle Fernandez RN(Responsible Staff) Care Manage r RN [phone] Continued Care and Services Coordination
--- OUTSIDE RECORDS SUMMARY | 2025-04-19 10:55 | XMS_ITS | Encounter Summary ---
Author Organization [facility] Address [address] [place] [address] Care Team Providers Care Refinery Operator Coking Name Role Phone Mimi Kerri Chappell DO Unavailable [phone] Kerri Le DO Primary Care Provider Ines Cole MD Primary Care Provider [phone] Suzi Moyer SERVICE TECH/WELDER Unavailable [phone] Encounter Details Date Type Department Care Team (Late st Contact Info) Description 08/11/2023 Abstract [facility] [address] [place] [address] Kerri Le DO 1719 [facility] 200 [place] [address] Social History Tobacco Use Types [...] 12:30 PM EDT Office Visit [facility] [address] [place] [address] Suzi Moyer NP [address] [place], [place] [id number] documented as of this encounter Visit Diagnoses Not on filedocumented in this encounter Care Teams Refinery Operator Coking Relationship Specialty Start Date End Date Kerri Le DO [address] [facility] 200 [place] [phone] PCP - Shoshana LUNA 04/30/23 10/29/23 Kerri Le DO 1715 [facility] 200 [place] [phone] PCP - General Family Medicine 05/21/23 12/16/23 Ines Cole MD [address] [place] [address] PCP - General Family Medicine 12/17/23 Suzi Moyer NP [address] [facility] [place] [address] Nurse Practitioner Family Medicine 12/17/23 documented as of this encounter
--- OUTSIDE RECORDS SUMMARY | 2025-04-19 10:55 | XMS_ITS | Encounter Summary ---
Author Organization [facility] Address [address] [place] [address] Care Team Providers Care Electric Drill Operator Name Role Phone Ines Cole MD Primary Care Provider [phone] Suzi Moyer NP Unavailable [phone] Encounter Details Date Type Department Care Team (Late st Contact Info) Description 04/17/2025 Telephone [facility] [address] [place] [address] Ines Cole MD [address] [place] [address] Social History Tobacco Use Types [...] friends or relatives? Patient declined 01/01/2024 Attends Scientologist Services Not on file 01/01 Do you belong to any clubs o r organizations such as scientology groups, unions, fraternal or athletic groups, or [...] Patient Health Questionnaire-2 Score 0 08/26/2023 [facility] [...] sleep or slept in a fdc (including now)? Patient refused 01/01/2024 Sex and Gender Information Value Date Recorded Sex Assigned at Not on file Legal Sex Male 7:29 PM EDT Gender Identity Not on file Sexual Orientation Not on file documented as of this encounter Miscellaneous Notes * Telephone Encounter - Chanelle Fernandez RN - 04/18/2025 3:40 PM EDT See note * Telephone Encounter - Jose Morris - 04/17/2025 9:37 AM EDT Adult Protective Services called - asking for a script/order for a Iris lift . Agustin is having trouble getting in and out of bed . Having to call EMS to help. Any questions call Lois at [phone] documented in this encounter Plan of Treatment Upcoming Encounters Date Type Department Care Team (Late st Contact Info) Description 09/25/2025 12:30 PM EDT Office Visit [facility] [address] [place] [address] Suzi Moyer NP [address] [place] [address] documented as of this encounter Visit Diagnoses Not on filedocumented in this encounter Additional Health Concerns Assessment Noted Time PHQ-9 Depression Total Score: 0 02/23/20 1:00 PM EDT documented as of this encounter Care Teams Electric Drill Operator Relationship Specialty Start Date End Date Ines Cole MD [address] [place], [place] [id number] PCP - General Family Medicine 12/17/23 Suzi Moyer NP 14[address] [facility] [address] [place], [place] [id number] Nurse Practitioner Family Medicine 12/17/23 documented as of this encounter
--- OUTSIDE RECORDS SUMMARY | 2025-04-19 10:55 | XMS_ITS | Encounter Summary ---
Author Organization [facility] Address [address] [place] [address] Care Team Providers Care Forming Press Operator Name Role Phone Kerri Le DO Unavailable [phone] Kerri Le DO Primary Care Provider Ines Cole MD Primary Care Provider Suzi Moyer ROAD ENGINEER Unavailable [phone] Encounter Details Date Type Department Care Team (Late st Contact Info) Description 04/30/2023 Abstract [facility] [address] [place] [address] Kerri Le DO 1718 [facility] 200 [place] [address] Social History Tobacco Use Types [...] PM EDT Office Visit [facility] [address] [place] [address] Suzi Moyer NP [address] [place], [place] [id number] documented as of this encounter Visit Diagnoses Not on filedocumented in this encounter Care Teams Forming Press Operator Relationship Specialty Start Date End Date Kerri Le DO 1715 [facility] 200 [place] [phone] PCP - Shoshana LUNA 04/30/23 10/29/23 Kerri Le DO 1715 [facility] [address] [place] [phone] PCP - General Family Medicine 05/21/23 12/16/23 Ines Cole MD [address] [place] [address] PCP - General Family Medicine 12/17/23 Suzi Moyer NP [address] [facility] [place] [address] Nurse Practitioner Family Medicine 12/17/23 documented as of this encounter
--- OUTSIDE RECORDS SUMMARY | 2025-04-19 10:55 | XMS_ITS ---
Author Organization [facility] Address [address] [place] [address] Care Team Providers Care Sushi Chef Name Role Phone Ines Cole MD Primary Care Provider [phone] Suzi Moyer NP Unavailable [phone] 30 Day Monitoring Program Status:Closed (Closed) Start date:03/14/2025 Enrollment date:03/14/2025 End date:04/13/2025 Close reason:Actively enrolled in CCM Overview SNF eileen completed. Continued Care and Services Coordination
--- OUTSIDE RECORDS SUMMARY | 2025-04-19 10:55 | XMS_ITS | Encounter Summary ---
Author Organization [facility] Address [address] [place] [address] Care Team Providers Care Try Out Person Name Role Phone Kerri Le DO Unavailable [phone] Kerri Le DO Primary Care Provider Ines Cole MD Primary Care Provider Suzi Moyer CIRCULATION MANAGER Unavailable [phone] Encounter Details Date Type Department Care Team (Late st Contact Info) Description 06/26/2023 Abstract [facility] [address] [place] [address] Kerri Le DO 1717 [facility] 200 [place] [address] Social History Tobacco Use Types [...] PM EDT Office Visit [facility] [address] [place] [address] Suzi Moyer NP [address] [place], [place] [id number] documented as of this encounter Visit Diagnoses Not on filedocumented in this encounter Care Teams Try Out Person Relationship Specialty Start Date End Date Kerri Le DO 1715 [facility] [address] [place] [phone] PCP - Shoshana LUNA 04/30/23 10/29/23 Kerri Le DO 1715 [facility] [address] [place] [phone] PCP - General Family Medicine 05/21/23 12/16/23 Ines Cole MD [address] [place] [place] [address] PCP - General Family Medicine 12/17/23 Suzi Moyer NP 1479 [facility] [place] [address] Nurse Practitioner Family Medicine 12/17/23 documented as of this encounter
--- OUTSIDE RECORDS SUMMARY | 2025-04-19 10:55 | XMS_ITS | Encounter Summary ---
Author Organization [facility] Address [address] [place] [address] Care Team Providers Care Manager Practice Name Role Phone Kerri Le DO Unavailable [phone] Kerri Le DO Primary Care Provider [phone] Ines Cole MD Primary Care Provider Suzi Moyer NEUROLOGY TEACHER Unavailable [phone] Encounter Details Date Type Department Care Team (Late Contact Info) Description 09/22/[address] [facility] [address] [place] [address] Kerri Le DO 1717 [facility] 200 [place] [address] Social History Tobacco Use Types [...] Encounters Date Type Department Care Team (Late Contact Info) Description 09/25/2025 12:30 PM EDT Office Visit [facility] [address] [place] [address] Suzi Moyer NP [address] [place], [place] [phone] documented as of this encounter Visit Diagnoses Not on filedocumented in this encounter Care Teams Manager Practice Relationship Specialty Start Date End Date Kerri Le DO 1715 [facility] [place] 200 [facility] [place] [address] PCP - Shoshana LUNA 04/30/23 10/29/23 Kerri Le DO 1715 [facility] 200 [place] [address] PCP - General Family Medicine 05/21/23 12/16/23 Ines Cole MD [address] [place] [address] PCP - General Family Medicine 12/17/23 Suzi Moyer NP [address] [place] [address] Nurse Practitioner Family Medicine 12/17/23 documented as of this encounter
--- OUTSIDE RECORDS SUMMARY | 2025-04-19 10:55 | XMS_ITS | Encounter Summary ---
Author Organization [facility] Address [address] [place] [address] Care Team Providers Care Cable Swager Name Role Phone Kerri Le DO Unavailable [phone] Kerri Le DO Primary Care Provider [phone] Ines Cole MD Primary Care Provider [phone] Suzi Moyer INSTRUCTOR [place] Unavailable [phone] Encounter Details Date Type Department Care Team (Late Contact Info) Description 09/02/2023 Abstract [facility] [address] [place] [address] Kerri Le DO 171 [facility] 200 [place] [address] Social History Tobacco Use Types [...] PM EDT Office Visit [facility] [address] [place] [address] Suzi Moyer NP [address] [place], [place] [phone] documented as of this encounter Visit Diagnoses Not on filedocumented in this encounter Care Teams Cable Swager Relationship Specialty Start Date End Date Kerri Le DO 17[address] [facility] [place] 200 [facility] [place] [address] PCP - Shoshana LUNA 04/30/23 10/29/23 Kerri Le DO 1715 [facility] 200 [place] [address] PCP - General Family Medicine 05/21/23 12/16/23 Ines Cole MD [address] [place] [address] PCP - General Family Medicine 12/17/23 Suzi Moyer NP [address] [place] [address] Nurse Practitioner Family Medicine 12/17/23 documented as of this encounter
--- OUTSIDE RECORDS SUMMARY | 2025-04-19 10:55 | XMS_ITS | Encounter Summary ---
Author Organization [facility] Address [address] [facility] [place] [address] Care Team Providers Care Hydraulic Boom Operator Name Role Phone Kerri Le Primary Care Provider [phone] Ines Cole MD Primary Care Provider [phone] Suzi Moyer DIRECTOR OF ONCOLOGY Unavailable [phone] Encounter Details Date Type Department Care Team (Late st Contact Info) Description 11/24/[address] [facility] [address] [place] [address] Kerri Le DO [address] [phone] Social History Tobacco Use Types Packs/Day Years [...] PM EDT Office Visit [facility] [address] [place] [address] Suzi Moyer NP [address] [place] [address] documented as of this encounter Visit Diagnoses Not on filedocumented in this encounter Care Teams Hydraulic Boom Operator Relationship Specialty Start Date End Date Kerri Le DO PCP - General Family Medicine 05/21/23 12/16/23 Ines Cole MD [address] [place], [place] [id number] PCP - General Family Medicine 12/17/23 Suzi Moyer NP [address] [place], [place] [address] Nurse Practitioner Family Medicine 12/17/23 documented as of this encounter
--- OUTSIDE RECORDS SUMMARY | 2025-04-19 10:56 | XMS_ITS | CCD ---
Author Organization [facility] Care Team Providers Care Core Shaper Sides Name Role Phone SILVANA WETZEL Admitting Unavailable [...] Attending Unavailable HIGHLJESI, SILVANA Chowdhury Attending Unavailable SILVANA WETZEL Admitting Unavailable REQUEST, NONE LISTED Primary Care Unavaila SILVANA Cobb Attending Unavailable SILVANA WETZEL Admitting Unavailable REQUEST, NONE LISTED Primary Care Unavaila SILVANA Cobb Attending Unavailable HIGHLJESI, SILVANA Chowdhury Admitting Unavailable REQUEST, NONE LISTED Primary Care Unavaila SILVANA Cobb Attending Unavailable SILVANA WETZEL Admitting Unavailable REQUEST, NONE LISTED Primary Care Unavaila brandon Childs MD, Ines Primary Care Provider João CRUZ, Suzi Unavailable Demar ADAN, Kerri G Primary Care Provider Hudson Rios MD Primary Care Provider [phone] DEMAR, KERRI G Primary Care Unavailable BONE, SHAHID U Admitting Unavailable BONE, SHAHID U Attending Unavailable ONLY), [facility] SERVICES (INPATIENT Consult ing Unavailable HUFDHI, RAIED Primary Care Unavailable TOMAS GARCIA Admitting Unavailable AIDEN ARROYO Attending Unavailable ONLY), IP WOUND CARE SERVICES (INPATIENT Consult ing Unavailable Hudson Rios MD Primary Care Provider [phone] ABRAHAM PIMENTLE Attending Unavailable DEMAR, KERRI G Referring Unavailable DEMAR, KERRI G Primary Care Unavailable ENRIQUETAABRAHAM BABIN F Attending Unavailable DEMAR, KERIR G Referring Unavailable DEMAR, KERRI G Primary Care Unavailable ENRIQUETAABRAHAM BABIN F Attending Unavailable DEMAR, KERRI G Referring Unavailable DEMAR, KERRI G Primary Care Unavailable DEMAR, KERRI G Referring Unavailable DEMAR, KERRI G Primary Care Unavailable ENRIQUETAABRAHAM BABIN F Attending Unavailable DEMAR, KERRI G Referring Unavailable HUFDHI, RAIED Primary Care Unavailable SUZI MOYER Attending Unavailable SUZI MOYER Attending Unavailable LUIS ARMANDOFDHI, RAIED Referring Unavailable HUFDHI, RAIED Primary Care Unavailable POTHIREDDY, KENA P Admitting Unavailable POTHIREDDY, KENA P Attending Unavailable AKBAR BACK Referring Unavailable HUFDHI, RAIED Primary Care Unavailable ABRAHAM PIMENTEL F Consulting Unavailable DIVISION OF INFECTIOUS DISEASE, [facility] Consulting Unavailable ONLY), IP WOUND CARE SERVICES (INPATIENT Consult ing Unavailable LIZ CHAPMAN Admitting Unavailable LIZ CHAPMAN Attending Unavailable ZANDRA STEWART Referring Unavailable DEMAR, KERRI G Primary Care Unavailable INES CHILDS Referring Unavailable DEMAR, KERRI G Primary Care Unavailable Allergies Allergy Classification Reported Allergen(s) Allergy Type Date of Onset Reaction(s) Facility (2 sources) Adhesive agent Drug allergy (disorder) [facility] Repository (20 sources) Adhesive Tape-Silicones; Translations: [ADHESIVE TAPE-SILICONES] Propensity to adverse reactions to drug 8 [facility] Medications Current Medications Medication Drug Class(es) Dates Sig (Normalized) Sig (Original) acetaminophen 325 mg oral tablet (12 sources) Start: 02-14-2025 take 1 tablet by mouth every four hours as needed for pain and headache 650 mg, oral, Every 4 hours PRN, mild pain - pain scale 1-3, headaches, Starting on Thu02/14/25 at 2016 Start: 02-14-2025 take 650 mg rectal r oute every four hours as needed Start: 01-26-2025 acetaminophen (Tylenol) 500 MG tablet Take 1,000 mg by mouth in the morning and 1,000 mg at noon and 1,000 mg in the evening and 1,000 mg before bedtime. 01/26/2025 Active albuterol 0.83 mg/ml inhalation solution (1 source) beta2-Adrenergic Agonist Start: 02-14-2025 take 2.5 mg by inhalation every six hours as needed for wheezing and dyspnea 2.5 mg, nebulization, Every 6 hours PRN, wheezing, shortness of breath, Starting on Thu02/14/25 at 1745, Implement INPATIENT/ED Bronchodilator Clinical Practice Guidelines? Yes amLODIPine 5 mg oral tablet (18 sources) Dihydropyridine Calcium Channel Sara Start: 01-19-2018 End: 08-29-2024 take 1 tablet by mouth in the morning amLODIPine (NORVASC) 5 mg tablet Take 1 tablet (5 mg total) by mouth in the morning. 01/19/2018 Active amoxicillin 875 mg / clavulanate 125 mg oral tablet (2 sources) Penicillin-class Antibacterial Start: 02-17-2025 End: 02-24-2025 take 1 tablet by mouth once in the morning amoxicillin-pot clavulanate (AUGMENTIN) 875-125 mg per tablet Take 1 tablet by mouth in the morning and 1 tablet before bedtime. Do all this for 7 days. 02/17/2025 02/24/2025 Active ascorbic acid 250 mg chewable tablet (20 sources) Vitamin C ascorbic acid (Vitamin C) 250 MG chewable tablet 1 (one) time each day at the same time. Active take 1 tablet by mouth in the mo rning ascorbic acid (VITAMIN C) 500 mg tablet Take 1 tablet (500 mg total) by mouth in the morning. Active aspirin 81 mg chewable tablet (20 sources) Platelet Aggregation Inhibitor, Nonsteroidal Anti-inflammatory Drug Start: 02-16-2025 take 81 mg by mouth once daily 81 mg, oral, Daily, First dose on Thu02/16/25 at 1830 aspirin 81 MG EC tablet 1 (one) time each day at the same time. Active atorvastatin 40 mg oral tablet (20 sources) HMG-CoA Reductase Inhibitor Start: 03-10-2025 End: 03-27-2025 take 1 tablet by mouth once daily atorvastatin (Lipitor) 40 MG tablet Indications: Mixed hyperlipidemia (CMS/HCC) Take 1 tablet (40 mg) by mouth Daily 90 tablet 1 03/27/2025 Active Start: 02-15-2025 take 20 mg by mouth once daily 20 mg, oral, Nightly, First dose on Thu02/15/25 at 2200, Look-alike/sound-alike medication - verify indication for use. take 1 tablet by garcia th in the morning, then take 1 tablet by mouth at bedtime atorvastatin (LIPITOR) 20 mg tablet Take 1 tablet (20 mg total) by mouth in the morning and 1 tablet (20 mg total) before bedtime. Active carvedilol 3.125 mg oral tablet (20 sources) alpha-Adrenergic Sara, beta-Adrenergic Sara Start: 03-10-2025 End: 03-27-2025 take 1 tablet by mouth in the morning carvedilol (Coreg) 3.125 MG tablet Indications: Primary hypertension (CMS/HCC) Take 1 tablet (3.125 mg) by mouth in the morning and 1 tablet (3.125 mg) in the evening. Take with meals. 180 tablet 1 03/27/2025 Active Start: 02-15-2025 take 6.25 mg by mout h twice daily 6.25 mg, oral, 2 times daily, First dose on Thu02/15/25 at 0915, Give with meal or snack. Look-alike/sound-alike medication - verify indication for use. Start: 11-24-2023 End: 11-17-2024 take 1 tablet by mouth twice daily carvedilol (Coreg) 6.25 MG tablet Indications: Primary hypertension (CMS/HCC) TAKE 1 TABLET BY MOUTH TWICE A DAY 180 tablet 1 11/17/2024 Active cefTRIAXone 2000 mg injection (1 source) Cephalosporin Antibacterial Start: 02-14-2025 take 2000 mg intravenously every twenty-four hours 2,000 mg, intravenous, at 100 mL/hr, Administer over 30 Minutes, Every 24 hours, First dose (after last modification) on Thu02/14/25 at 1800, Look-alike/sound-alike medication - verify indication for use. Do not co-administer with calcium-containing solutions such as Lactated Ringers., Indication: Bacteremia cephalexin 500 mg oral capsule (9 sources) Cephalosporin Antibacterial Start: 03-24-2025 cephalexin (Keflex) 500 MG capsule 03/24/2025 Active Start: 01-10-2025 End: 02-15-2025 take 1 capsule by mouth in the morning, then take 1 capsule by mouth at bedtime CEPHalexin (KEFLEX) 500 mg capsule Take 1 capsule (500 mg total) by mouth in the morning and 1 capsule (500 mg total) before bedtime. 01/10/2025 02/15/2025 Discontinued Start: 01-04-2024 cephalexin (Ke flex) 500 MG capsule cholecalciferol 1.25 mg oral capsule (10 sources) Vitamin D Start: 02-01-2025 cholecalcifero l (Vitamin D-3) 1.25 MG (27092 UT) capsule Take 50,000 Units by mouth every 7 (seven) days 02/01/2025 Active Start: 02-01-2025 take 1 capsule by mo uth every week cholecalciferol (VITAMIN D3) 50,000 units capsule Take 1 capsule (50,000 Units total) by mouth once a week. 4 capsule 11 02/01/2025 Active citalopram 20 mg oral tablet (20 sources) Serotonin Reuptake Inhibitor Start: 03-10-2025 End: 03-27-2025 take 1 tablet by mouth once daily citalopram (CeleXA) 20 MG tablet Indications: Recurrent major depressive disorder, in partial remission (HCC) (CMS/HCC) Take 1 tablet (20 mg) by mouth Daily 90 tablet 1 03/27/2025 Active Start: 02-15-2025 take 40 mg by mouth once daily 40 mg, oral, Daily, First dose (after last modification) on Thu02/15/25 at 0900, Look-alike/sound-alike medication - verify indication for use. Start: 08-21-2023 End: 08-29-2024 take 1 tablet by mouth once daily citalopram (CeleXA) 40 MG tablet Indications: 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) Take 1 tablet (40 mg) by mouth Daily 90 tablet 1 08/29/2024 Active docusate sodium 50 mg / sennosides, long term 8.6 mg oral tablet (1 source) Start: 02-14-2025 take 1 tablet by mouth every twelve hours as needed for constipation 0.4 ml enoxaparin sodium 100 mg/ml prefilled syringe (1 source) Low Molecular Weight Heparin Start: 02-15-2025 40 mg, subcutaneous, Daily, First dose (after last modification) on Thu02/15/25 at 0600, Hold for platelet less than 100 Look-alike/sound-a like medication - verify indication for use. 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 Take 1 tablet (325 mg) by mouth Daily 90 tablet 1 03/27/2025 Active furosemide 20 mg oral tablet (20 sources) Loop Diuretic Start: 05-23-2024 End: 03-27-2025 take 2 tablets by mouth once daily furosemide (Lasix) 20 MG tablet Indications: Primary hypertension (CMS/HCC) Take 2 tablets (40 mg) by mouth Daily 180 tablet 1 03/27/2025 Active Start: 08-21-2023 take 2 tablets by mo ut once daily furosemide (Lasix) 20 MG tablet Indications: Acute bilateral venous stasis dermatitis TAKE TWO TABLETS BY MOUTH DAILY 180 tablet 2 08/21/2023 Active take 1 tablet by garcia twice daily furosemide (LASIX) 20 mg tablet Take 1 tablet (20 mg total) by mouth 2 (two) times a day. Active glucagon (rdna) 1 mg injecti on (1 source) Antihypoglycemic Agent Start: 02-14-2025 150 ml glucose 50 mg/ml inje ction (3 sources) Start: 02-14-2025 Start: 02-14-2025 Start: 02-14-2025 ibuprofen 200 mg oral tablet (19 sources) Nonsteroidal Anti-inflammatory Drug take 1 tablet by mouth once daily at mealtime as needed ibuprofen 200 MG tablet 1 tablet with food or milk as needed Orally pt taking daily Active lysine 1000 mg oral tablet (18 sources) L-lysine 1000 MG tablet Take by mouth Active 50 ml magnesium sulfate 40 mg/ml injection (2 sources) Start: 02-15-20 25 2,000 mg, intravenous, at 25 mL/hr, Administer over 120 Minutes, As needed, Magnesium level 1.7 to 1.9 mg/dL, or Ionized Magnesium level 0.45 to 0.5 mmol/L., Starting on Thu02/14/25 at 1732, Recheck magnesium level 4 hours after infusion complete. With each magnesium result continue the replacement orders as needed. Start: 02-14-2025 Multiple Vitamin (MULTIVITAM IN ADULT PO) (19 sources) Multiple Vitamin (MULTIVITAMIN ADULT PO) 1 (one) time each day at the same time. Active Multiple Vitamin (MULTIVITAMIN ADULT PO) 1 (one) time each day at the same time. 0 Active omeprazole 40 mg delayed release oral capsule (20 sources) Proton Pump Inhibitor Start: 05-23-2024 End: 03-27-2025 take 1 capsule by mouth before mealtime omeprazole (PriLOSEC) [address] capsule Indications: Gastroesophageal reflux disease, unspecified whether esophagitis present Take 1 capsule (40 mg) by mouth in the morning. Take before meals. Do not crush or chew. 90 capsule 1 03/27/2025 Active Start: 08-21-2023 omeprazole (Pr iLOSEC) [address] capsule Indications: Gastroesophageal reflux disease, unspecified whether esophagitis present TAKE ONE CAPSULE BY MOUTH DAILY 30 MINUTES BEFORE MORNING MEAL 90 capsule 2 08/21/2023 Active 2 ml ondansetron 2 mg/ml injection (1 source) Serotonin-3 Receptor Antagonist Start: 02-14-2025 take 4 mg intravenously every eight hours as needed for nausea and vomiting Oxygen (20 sources) oxygen (O2) gas Inhale 2 L/min continuously via nasal canula Active oxygen Inhale 3- 4 L/min as needed. oxygen Inhale 3- 4 L/min as needed. Suspended oxygen Inhale 3- 4 L/min as needed. Active oxygen Inhale 3- 4 L/min as needed. 0 Active potassium chloride 20 meq extended release oral tablet (20 sources) Start: 02-14-2025 potassium chlo ride (K-TAB,KLOR-CON) CR tablet 30-40 mEq Start: 11-21-2024 take 1 tablet by garcia th at mealtime potassium chloride CR (Klor-Con) 10 MEQ ER tablet Indications: Hypokalemia Take 1 tablet (10 mEq) by mouth in the evening with food 90 tablet 1 11/21/2024 Active Start: 09-21-2024 End: 03-31-2025 take 1 tablet by mouth once daily potassium chloride CR (K-Tab) 20 MEQ ER tablet Indications: Hypokalemia TAKE 1 TABLET BY MOUTH DAILY (DO NOT CRUSH CHEW OR SPLIT) 90 tablet 1 03/31/2025 Active Start: 08-30-2024 End: 11-18-2024 take 1 [...] WITH FOOD 90 tablet 3 08/31/2023 Active potassium chlori de (K-TAB,KLOR-CON) 10 MEQ CR tablet Take 2 tablets (20 mEq total) by mouth nightly. Suspended take 1 dose by mouth in the morning potassium chloride (KLOR-CON) 20 mEq packet Take 1 packet (20 mEq total) by mouth in the morning. Suspended potassium chlori de (K-TAB,KLOR-CON) 10 MEQ CR tablet Take 1 tablet (10 mEq total) by mouth daily with dinner. Suspended tamsulosin hydrochloride 0.4 mg oral capsule (13 sources) alpha-Adrenergic Sara Start: 02-01-2025 End: 03-27-2025 take 1 capsule by mouth every twenty-four hours at bedtime tamsulosin (Flomax) 0.4 MG 24 hr capsule Indications: Neurogenic bladder Take 1 capsule (0.4 mg) by mouth at bedtime 90 capsule 1 03/27/2025 Active Start: 02-01-2025 take 1 capsule by mo [facility] once daily tamsulosin (FLOMAX) 0.4 mg capsule Take 1 capsule (0.4 mg total) by mouth nightly. 02/01/2025 Active zinc gluconate 50 mg oral tablet (19 sources) zinc gluconate 5 0 MG tablet 1 (one) time each day at the same time. Active zinc sulfate 220 mg oral capsule (16 sources) take 1 capsule by mo ut in the morning zinc sulfate (ZINCATE) 50 mg zinc (220 mg) capsule Take 1 capsule (220 mg total) by mouth in the morning. Active Completed/Discontinued Medications Medication Drug Class(es) Dates Sig (Normalized) Sig (Original) collagenase 0.25 unt/mg topical ointment (6 sources) Collagen-specifi c Enzyme Start: 06-05-2022 End: 08-29-2024 Santyl 250 UNIT/GM ointment 06/05/2022 08/29/2024 Discontinued iohexoL (OMNIPAQUE) 300 mg iodine/mL 100 mL (1 source) Start: 02-16-2025 End: 02-16-2025 100 mL, intravenous, Once in imaging, contrast, Starting on Thu02/16/25 at 1123, For 1 dose, VESICANT (RED) iron sucrose (VENOFER) 100 mg in sodium chloride 0.9 % 50 mL IVPB (1 source) Start: 02-16-2025 End: 02-17-2025 100 mg, intravenous, at 220 mL/hr, Administer over 15 Minutes, Daily, First dose on Thu02/16/25 at 1100, For 2 doses, Monitor patient for hypersensitivity reactions for at least 30 minutes after the infusion. AVOID the use of H1 antihistamines, such as diphenhydramine, as this may worsen hypersensitivity reactions. Have resuscitation equipment and medications available. rosuvastatin calcium 10 mg oral tablet (16 sources) HMG-CoA Reductase Inhibitor Start: 03-03-2023 End: 03-27-2025 rosuvastatin (Crestor) 10 MG tablet 1 (one) time each day at the same time. 03/03/2023 03/27/2025 Discontinued (Med list cleanup) 1000 ml sodium chloride 9 mg/ml injection (7 sources) Start: 02-16-2025 End: 02-16-2025 80 mL, intravenous, Once in imaging, pre/post contrast, Starting on Thu02/16/25 at 1123, For 1 dose Start: 02-14-2025 3 mL, intraven ous, Every 12 hours scheduled, First dose (after last modification) on Thu02/14/25 at 2100 Start: 02-14-2025 10 mL, intrave nous, As needed, line care, Starting on Thu02/16/25 at 1123 Start: 02-14-2025 End: 02-15-2025 take 100 mL intravenously every hour 100 mL/hr, intravenous, Continuous, Starting on Thu02/14/25 at 1745, For 19 hours Start: 02-14-2025 Problems Active Problems Problem Classification Problem Date Documented Date Episodic/Chronic Acute and unspecified renal failure (1 source) Acute kidney failure, unspecified; Translations: [Acute kidney failure, unspecified] Onset: 02-11-2025 Episodic Bacterial infection; unspecified site (9 sources) Bacteremia; Translations: [Bacteremia] Onset: 02-12-2025 02-12-2025 Episodic Chronic ulcer of skin (20 sources) Non-pressure chronic ulcer of left ankle limited to breakdown of skin; Translations: [Non-pressure chronic ulcer of other part of right foot with fat layer exposed] Onset: 05-05-2022 Resolved: 02-24-2024 Chronic Complications of surgical procedures or medical care (12 sources) Disorder of amputation stump; Translations: [Other complications of amputation stump] Onset: 02-11-2025 02-15-2025 Episodic Coronary atherosclerosis and other heart disease (19 sources) Coronary arteriosclerosis; Translations: [Atherosclerotic heart disease of [place] coronary artery without angina pectoris] Onset: 06-08-2023 06-08-2023 Chronic Disorders of lipid metabolism (20 sources) Mixed hyperlipidemia; Translations: [Mixed hyperlipidemia] Onset: 01-23-2023 06-08-2023 Chronic Esophageal disorders (20 sources) Gastroesophageal reflux disease; Translations: [Gastro-esophageal reflux disease without esophagitis] Onset: 06-08-2023 06-08-2023 Chronic Essential hypertension (20 sources) Essential (primary) hypertension; Translations: [Essential hypertension] Onset: 02-11-2018 08-26-2023 Chronic Fluid and electrolyte disorders (5 sources) Hypokalemia; Translations: [Hypokalemia] 08-30-2024 Episodic Gangrene (20 sources) Critical lower limb ischemia ; Translations: [Atherosclerosis of [place] arteries of extremities with gangrene, right leg] Onset: 03-24-2024 03-24-2024 Chronic Gangrene (14 sources) Gangrene of right foot; Translations: [Gangrene, not elsewhere classified] Onset: 01-20-2025 01-20-2025 Episodic Immunizations and screening for infectious disease (2 sources) Patient encounter status; Translations: [Encounter for immunization] 08-29-2024 Episodic Malaise and fatigue (2 sources) Fatigue; Translations: [Other fatigue] 01-06-2024 Episodic Mood disorders (20 sources) Recurrent major depressive episodes, mild ; Translations: [Major depressive disorder, recurrent, mild] Onset: 06-08-2023 Resolved: 02-24-2024 06-08-2023 Chronic Nutritional deficiencies (2 sources) Vitamin D deficiency; Translations: [Vitamin D deficiency, unspecified] 03-27-2025 Chronic Open wounds of extremities (20 sources) Amputated toe of right foot; Translations: [Complete traumatic amputation of one right lesser toe, initial encounter] Onset: 06-08-2023 Resolved: 02-24-2024 06-08-2023 Chronic Other acquired deformities (19 sources) Acquired scoliosis; Translations: [Other secondary scoliosis, thoracolumbar region] Onset: 06-08-2023 06-08-2023 Chronic Other connective tissue disease (5 sources) Muscle weakness; Translations: [Muscle weakness (generalized)] Onset: 02-01-2025 03-27-2025 Episodic Other diseases of bladder and urethra (20 sources) Neurogenic bladder; Translations: [Neuromuscular dysfunction of bladder, unspecified] Onset: 06-08-2023 06-08-2023 Chronic Other diseases of veins and lymphatics (1 source) Chronic venous hypertension (idiopathic) with ulcer of left lower extremity; Translations: [CHRON VENOUS HTN W/ULCER LT LW EXT] Onset: 03-25-2023 Chronic Other diseases of veins and lymphatics (19 sources) Venous ulcer of lower extremity due [...] INSUFF CHRONIC PERIPHERAL] Onset: 01-23-2023 Episodic Other injuries and conditions due to external causes (9 sources) Surgical wound finding; Translations: [Other injury of unspecified body region, initial encounter] Onset: 02-15-2025 02-15-2025 Episodic Other injuries and conditions due to external causes (1 source) Other injury of unspecified body region, initial encounter; Translations: [Other injury of unspecified body region, initial encounter] Onset: 02-15-2025 Episodic Other nervous system disorders (8 sources) Unable to walk; Translations: [Difficulty in walking, not elsewhere classified] Onset: 01-30-2025 01-30-2025 Chronic Other nervous system disorders (1 source) Difficulty in walking, not elsewhere classified; Translations: [Difficulty in walking, not elsewhere classified] Onset: 01-30-2025 Chronic Other nervous system disorders (5 sources) Difficulty walking; Translations: [Difficulty in walking, not elsewhere classified] Onset: 01-30-2025 03-27-2025 Chronic Other nutritional; endocrine; and metabolic disorders (19 sources) Obese class I; Translations: [Obesity, unspecified] Onset: 06-08-2023 06-08-2023 Chronic Other nutritional; endocrine; and metabolic disorders (20 sources) Alveolar hypoventilation; Translations: [Morbid (severe) obesity with alveolar hypoventilation] Onset: 02-11-2018 08-26-2023 Chronic Other nutritional; endocrine; and metabolic disorders (1 source) Adult failure to thrive; Translations: [Adult failure to thrive] Onset: 01-30-2025 Episodic Paralysis (20 sources) Paraplegia, incomplete; 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] Onset: 11-09-2019 06-08-2023 Chronic Peripheral and visceral atherosclerosis (11 sources) Peripheral vascular disease, unspecified; Translations: [Peripheral vascular disease, unspecified] Onset: 01-04-2023 03-17-2024 Chronic Pneumonia (except that caused by tuberculosis or sexually transmitted disease) (1 source) Pneumonia, unspecified organism; Translations: [Pneumonia, unspecified organism] Onset: 02-11-2025 Episodic Residual codes; unclassified (1 source) Dependence on wheelchair; Translations: [DEPENDENCE ON WHEELCHAIR] Onset: 01-23-2023 Chronic Residual codes; unclassified (19 sources) Dependence on wheelchair; Translations: [Dependence on wheelchair] Onset: 06-08-2023 06-08-2023 Chronic Residual codes; unclassified (20 sources) Obstructive sleep apnea syndrome; Translations: [Obstructive sleep apnea (adult) (pediatric)] Onset: 02-11-2018 06-08-2023 Chronic Residual codes; unclassified (5 sources) Localized edema; Translations: [LOCALIZED EDEMA] Onset: 01-23-2023 Episodic Residual codes; unclassified (1 source) Pain, unspecified; Translations: [Pain, unspecified] Onset: 01-21-2025 Episodic Residual codes; unclassified (5 sources) Localized edema; Translations: [Localized edema] Onset: 02-01-2025 03-27-2025 Episodic Respiratory failure; insufficiency; arrest (adult) (20 sources) Dependence on supplemental oxygen; Translations: [Chronic hypoxemic respiratory failure] Onset: 09-22-2018 06-08-2023 Chronic Septicemia (except in labor) (15 sources) Sepsis; Translations: [Sepsis, unspecified organism] Onset: 02-11-2025 02-12-2025 Episodic Unclassified (1 source) 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 ([facility]) 02-15-2025 Unclassified (2 sources) Wound Check Onset: 04-07-2024 Unclassified (1 source) Medical Screening Onset: 01-30-2025 Unclassified (1 source) EMS Onset: 01-30-2025 Unclassified (1 source) discuss amp Onset: 01-19-2025 Unclassified (1 source) Post-op Onset: 03-24-2024 Past or Other Problems Problem Classification Problem Date Documented Da te Episodic/Chronic Deficiency and other anemia (19 sources) Pancytopenia; Translations: [Other pancytopenia] Onset: 06-08-2023 Resolved: 02-24-2024 06-08-2023 Chronic Deficiency and other anemia (20 sources) 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; Translations: [Other iron deficiency anemias] Onset: 06-08-2023 Resolved: 02-24-2024 06-08-2023 Episodic Mood disorders (20 sources) Mood disorders Onset: 02-23-2024 Resolved: 02-14-2025 02-23-2024 Nutritional deficiencies (20 sources) Iron deficiency; Translations: [Iron deficiency] Onset: 09-14-2014 08-26-2023 Episodic Other bone disease and musculoskeletal deformities (19 sources) Osteopenia; Translations: [Other specified disorders of [...] Episodic Other diseases of veins and lymphatics (19 sources) Peripheral venous insufficiency; Translations: [Venous insufficiency (chronic) (peripheral)] Onset: 06-08-2023 06-08-2023 Episodic Other diseases of veins and lymphatics (17 sources) Disorder of vein of lower extremity; Translations: [Venous insufficiency (chronic) (peripheral)] Onset: 06-08-2023 Resolved: 02-24-2024 02-24-2024 Episodic Other lower respiratory disease (19 sources) Chronic respiratory insufficiency; Translations: [Other abnormalities of breathing] Onset: 06-08-2023 Resolved: 02-24-2024 06-08-2023 Episodic Other lower respiratory disease (19 sources) Restrictive lung disease; Translations: [Other disorders of lung] Onset: 06-08-2023 06-08-2023 Episodic Other lower respiratory disease (15 sources) Restrictive lung disease due to kyphoscoliosis; Translations: [Other disorders of lung] Onset: 02-11-2018 02-11-2018 Episodic Other nervous system disorders (19 sources) Impaired cognition; Translations: [Other symptoms and signs involving cognitive functions and awareness] Onset: 06-08-2023 06-08-2023 Episodic Other nervous system disorders (20 sources) Myoneural disorder; Translations: [Myoneural disorder, unspecified] Onset: 02-11-2018 08-26-2023 Episodic Other skin disorders (1 source) Personal history of diseases of the skin and subcutaneous tissue; Translations: [PERS HX DZ SKIN AND SUBCUTANEOUS TISSUE] Onset: 11-06-2022 Episodic Residual codes; unclassified (19 sources) 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; Translations: [Dependence on other enabling machines and devices] Onset: 06-08-2023 Resolved: 02-24-2024 06-08-2023 Chronic Residual codes; unclassified (3 sources) Edema; Translations: [Edema, unspecified] Onset: 08-26-2023 08-26-2023 Episodic Residual codes; unclassified (1 source) Illness, unspecified; Translations: [Illness, unspecified] Onset: 09-14-2024 Episodic Skin and subcutaneous tissue infections (20 sources) Cellulitis of right lower limb; Translations: [Cellulitis of right lower limb] Onset: 12-05-2020 08-26-2023 Episodic Unclassified (1 source) Surgical wound finding 02-15-2025 Unclassified (1 source) Venous stasis ulcer of left lower extremity ([facility]) 02-15-2025 Varicose veins of lower extremity (20 sources) Venous stasis ulcer with edema of left lower leg; Translations: [Varicose veins of left lower extremity with ulcer of unspecified site] Onset: 10-06-2018 08-26-2023 Episodic Results Test Name Value Interpretation Reference Range Facility 25-hydroxyvitamin D3 [Mass/V ol]on 03-28-2025 25-hydroxyvitamin D [Mass/Vol] 50 ng/mL 30 - 100 ng/mL [facility] Comment on above: Vitamin D Status 25- [place] Vitamin D: Deficiency: <20 ng/mL Insufficiency: 20 - 29 ng/mL Optimal: > or = 30 ng/mL For 25-OH Vitamin D testing on patients on D2-supplementation and patients for whom quantitation of D2 and D3 fractions is required, the QuestAssureD(TM) 25-OH VIT D, (D2,D3), LC/MS/MS is recommended: order code 74888 (patients >2yrs). See Note 1 Note 1 For additional information, please refer to http://education.Push IO/faq/PSH120 (This link is being provided for informational/ educational purposes only.) CBC W Auto Differential pane l (Bld)on 03-28-2025 Basophils (Bld) [#/Vol] 31 10*3/uL [facility] Basophils/100 WBC (Bld) 0.8 % [facility] Eosinophils (Bld) [#/Vol] 207 10*3/uL [facility] Eosinophils/100 WBC (Bld) 5.3 % [facility] Erythrocyte distribution width (RBC) [Ratio] 13.3 % 11.0 - 15.0 % [facility] Hematocrit (Bld) [Volume fraction] 30.6 % Low 38.5 - 50.0 % [facility] Hemoglobin (Bld) [Mass/Vol] 9.4 g/dL Low 13.2 - 17.1 g/dL [facility] Lymphocytes (Bld) [#/Vol] 714 10*3/uL Low [facility] Lymphocytes/100 WBC (Bld) 18.3 % [facility] MCH (RBC) [Entitic mass] 29 pg 27.0 - 33.0 pg [facility] MCHC (RBC) [Mass/Vol] 30.7 g/dL Low 32.0 - 36.0 g/dL [facility] Comment on above: For adults, a slight decrease in the calculated MCHC value (in the range of 30 to 32 g/dL) is most likely not clinically significant; however, it should be interpreted with caution in correlation with other red cell parameters and the patient's clinical condition. MCV (RBC) [Entitic vol] 94.4 fL 80.0 - 100.0 fL [facility] Monocytes (Bld) [#/Vol] 367 10*3/uL [facility] Monocytes/100 WBC (Bld) 9.4 % [facility] Neutrophils (Bld) [#/Vol] 2582 10*3/uL [facility] Neutrophils/100 WBC (Bld) 66.2 % [facility] Platelet mean volume (Bld) [Entitic vol] 9.7 fL 7.5 - 12.5 fL [facility] Platelets (Bld) [#/Vol] 212 10*3/uL [facility] RBC (Bld) [#/Vol] 3.24 10*6/uL Low [facility] WBC (Bld) [#/Vol] 3.9 10*3/uL [facility] Laboratory - Chemistry and C hemistry - challengeon 03-28-2025 Albumin [Mass/Vol] 3.4 g/dL Low 3.6 - 5.1 g/dL [facility] Albumin/Globulin [Mass ratio] 1 {ratio} [facility] ALP [Catalytic activity/Vol] 69 U/L 35 - 144 U/L [facility] ALT [Catalytic activity/Vol] 11 U/L 9 - 46 U/L [facility] AST [Catalytic activity/Vol] 17 U/L 10 - 35 U/L [facility] Bilirubin [Mass/Vol] 0.3 mg/dL 0.2 - 1 .2 mg/dL [facility] Calcium [Mass/Vol] 8.5 mg/dL Low 8.6 - 10. 3 mg/dL [facility] Chloride [Moles/Vol] 104 mmol/L 98 - 11 0 mmol/L [facility] CO2 [Moles/Vol] 30 mmol/L 20 - 32 mmol/L [facility] Creatinine [Mass/Vol] 0.63 mg/dL Low 0.70 - 1.28 mg/dL [facility] Ferritin [Mass/Vol] 47 ng/mL 24 - 380 ng/mL [facility] GFR/1.73 sq M.predicted among non-blacks MDRD (S/P/Bld) [Vol rate/Area] 98 mL/min/{1.73_m2} > OR = 60 mL/min/1.73m2 [facility] Globulin (S) [Mass/Vol] 3.3 g/dL [facility] Glucose [Mass/Vol] 109 mg/dL High 65 - 99 mg/dL [facility] Comment on above: Fasting reference interval For someone without known diabetes, a glucose value between 100 and 125 mg/dL is consistent with prediabetes and should be confirmed with a follow-up test. Iron [Mass/Vol] 43 ug/dL Low [facility] Iron binding capacity [Mass/Vol] 274 [facility] Iron saturation [Mass fraction] 16 Low [facility] Potassium [Moles/Vol] 3.8 mmol/L 3.5 - 5.3 mmol/L [facility] Protein [Mass/Vol] 6.7 g/dL 6.1 - 8.1 g/dL [facility] Sodium [Moles/Vol] 142 mmol/L 135 - 146 mmol/L [facility] Urea nitrogen [Mass/Vol] 18 mg/dL 7 - 25 mg/dL [facility] Urea nitrogen/Creatinine [Mass ratio] 29 mg/mg High [facility] Panel Informationon 03-28 Interpretation and review of laboratory results Abnormal [facility] Organization Information Site ID: QPT Name: [employer] [facility] Address: [address] [place] [address], [address] [place] [id number] Director: Maninder Alves MD [facility] 36on 03-07-2025 36 I informed pt. Normal [facility] 36 Patient called inquiring why his appointment today was cancelled. Normal [facility] CBC AND AUTO DIFFon 02-19-20 25 ABSOLUTE BASOPHIL 0.1 X10E9/L Normal 0.0-0.2 [facility] Comment on above: Performed By: #### P INR, BMP, , CBC #### [facility] ([id number]) [address], [address] [place] [address] Band form neutrophils/100 WBC (Bld) 1.0 % Normal [facility] Comment on above: Performed By: #### P INR, BMP, , CBC #### [facility] ([id number]) [address] [place] [address] Basophils/100 WBC (Bld) 2.0 % Normal [facility] Comment on above: Performed By: #### P INR, BMP, , CBC #### [facility] ([id number]) [address] [address] [place] [address] Eosinophils (Bld) [#/Vol] 0.7 10*3/uL High 0.0-0.4 [facility] Comment on above: Performed By: #### P INR, BMP, , CBC #### [facility] ([id number]) [address], [facility] [address] [place] [address] Eosinophils/100 WBC (Bld) 10.1 % Normal [facility] Comment on above: Performed By: #### P INR, BMP, , CBC #### [facility] ([id number]) [address] [address] Erythrocyte distribution width (RBC) [Ratio] 14.8 % Normal 11.5-15.0 [facility] Comment on above: Performed By: #### P INR, BMP, , CBC #### [facility] ([id number]) [address] [address] [place] [address] Hematocrit (Bld) [Volume fraction] 25.8 % Low 39-49 [facility] Comment on above: Performed By: #### P INR, BMP, , CBC #### [facility] ([id number]) [address] [address] [place] [address] Hemoglobin (Bld) [Mass/Vol] 8.4 g/dL Low 13.0-17.0 [facility] Comment on above: Performed By: #### P INR, BMP, , CBC #### [facility] ([id number]) [address] [address] Lymphocytes (Bld) [#/Vol] 0.6 10*3/uL Low 1.0-3.5 [facility] Comment on above: Performed By: #### P INR, BMP, , CBC #### [facility] ([id number]) [address] [place] [address] Lymphocytes/100 WBC (Bld) 9.1 % Normal [facility] Comment on above: Performed By: #### P INR, BMP, , CBC #### [facility] ([id number]) [address] [place] [address] MCH (RBC) [Entitic mass] 29.5 pg Normal 27-34 [facility] Comment on above: Performed By: #### P INR, BMP, , CBC #### [facility] ([id number]) [address], [address] [place] [address] MCHC (RBC) [Mass/Vol] 32.8 g/dL Normal 32-36 [facility] Comment on above: Performed By: #### P INR, BMP, , CBC #### [facility] ([id number]) [address] [place] [address] MCV (RBC) [Entitic vol] 90 fL Normal 80-100 [facility] Comment on above: Performed By: #### P INR, BMP, , CBC #### [facility] ([id number]) [address], [address] [place] [address] Metamyelocytes/100 WBC (Bld) 2.0 % Normal [facility] Comment on above: Performed By: #### P INR, BMP, , CBC #### [facility] ([id number]) [address], [facility] [address] [place] [address] Monocytes (Bld) [#/Vol] 0.5 10*3/uL Normal 0-0.9 [facility] Comment on above: Performed By: #### P INR, BMP, , CBC #### [facility] ([id number]) [address], [address] [place] [address] Monocytes/100 WBC (Bld) 8.1 % Normal [facility] Comment on above: Performed By: #### P INR, BMP, , CBC #### [facility] ([id number]) [address] [place] [address] MYELOCYTE 4.0 % Normal [facility] Comment on above: Performed By: #### P INR, BMP, , CBC #### [facility] ([id number]) [address], [facility] [address] [place] [address] Neutrophils (Bld) [#/Vol] 4.3 10*3/uL Normal 1.5-6.6 [facility] Comment on above: Performed By: #### P INR, BMP, , CBC #### [facility] ([id number]) [address], [address] [place] [address] NUCLEATED RBC 1.0 /100 WBC Normal 0.0-1.0 [facility] Comment on above: Performed By: #### P INR, BMP, , CBC #### [facility] ([id number]) [address], [address] [place] [address] Platelet mean volume (Bld) [Entitic vol] 8.4 fL Normal 7-12 [facility] Comment on above: Performed By: #### P INR, BMP, , CBC #### [facility] ([id number]) [address] [place] [address] Platelets (Bld) [#/Vol] 113 10*3/uL Low 150-450 [facility] Comment on above: Performed By: #### P INR, BMP, , CBC #### [facility] ([id number]) [address] [place] [address] POLYCHROMASIA 1+ Abnormal NONE [facility] Comment on above: Performed By: #### P INR, BMP, , CBC #### [facility] ([id number]) [address], [address] [place] [address] RBC COUNT 2.86 X10E12/L Low 4.10-5.70 [facility] Comment on above: Performed By: #### P INR, BMP, , CBC #### [facility] ([id number]) [address], [address] [place] [address] SEG NEUTROPHIL 63.7 % Normal [facility] Comment on above: Performed By: #### P INR, BMP, , CBC #### [facility] ([id number]) [address], [address] [place] [address] WBC (Bld) [#/Vol] 6.6 10*3/uL Normal 4.0-11.0 [facility] Comment on above: Performed By: #### P INR, BMP, , CBC #### [facility] ([id number]) [address], [address] [place] [address] CBC auto differentialon 01-29 Band form neutrophils/100 WBC (Bld) 1 % [facility] Basophils (Bld) [#/Vol] 0.1 10*3/uL [facility] Basophils/100 WBC (Bld) 2 % [facility] Eosinophils (Bld) [#/Vol] 0.7 10*3/uL High [facility] Eosinophils/100 WBC (Bld) 10.1 % [facility] Erythrocyte distribution width (RBC) [Ratio] 14.8 % 11.5 - 15.0 % [facility] Hematocrit (Bld) [Volume fraction] 25.8 % Low 39 - 49 % [facility] Hemoglobin (Bld) [Mass/Vol] 8.4 g/dL Low 13.0 - 17.0 g/dL [facility] Interpretation and review of laboratory results Abnormal [facility] Lymphocytes (Bld) [#/Vol] 0.6 10*3/uL Low [facility] Lymphocytes/100 WBC (Bld) 9.1 % [facility] MCH (RBC) [Entitic mass] 29.5 pg 27 - 34 pg [facility] MCHC (RBC) [Mass/Vol] 32.8 g/dL 32 - 36 g/dL [facility] MCV (RBC) [Entitic vol] 90 fL 80 - 100 fL [facility] Metamyelocytes/100 WBC (Bld) 2 % [facility] Monocytes (Bld) [#/Vol] 0.5 10*3/uL [facility] Monocytes/100 WBC (Bld) 8.1 % [facility] Myelocytes/100 WBC (Bld) 4 % [facility] Neutrophils (Bld) [#/Vol] 4.3 10*3/uL [facility] Nucleated RBC/100 WBC (Bld) [Ratio] 1 % [facility] Platelet mean volume (Bld) [Entitic vol] 8.4 fL 7 - 12 fL [facility] Platelets (Bld) [#/Vol] 113 10*3/uL Low [facility] Polychromasia LM Ql (Bld) 1+ Abnormal NONE^NONE [facility] RBC (Bld) [#/Vol] 2.86 10*6/uL Low [facility] Segmented neutrophils/100 WBC (Bld) 63.7 % [facility] WBC corrected for nucl RBC Auto (Bld) [#/Vol] 6.6 [facility] COMPREHENSIVE METABOLIC PANE Anival 02-18-2025 Albumin [Mass/Vol] 2.8 g/dL Low 3.2-5.3 [facility] Comment on above: Performed By: #### P INR, BMP, 365[address]-5, CBC #### [facility] ([id number]) [address], [address] [place] [address] ALP [Catalytic activity/Vol] 52 U/L Normal 39-130 [facility] Comment on above: Performed By: #### P INR, BMP, , CBC #### [facility] ([id number]) [address], [address] [place] [address] ALT [Catalytic activity/Vol] 16 U/L Normal 0-40 [facility] Comment on above: Performed By: #### P INR, BMP, , CBC #### [facility] ([id number]) [address], [address] [place] [address] Anion gap [Moles/Vol] 5 mmol/L Normal 5-15 [facility] Comment on above: Performed By: #### P INR, BMP, , CBC #### [facility] ([id number]) [address] [place] [address] AST [Catalytic activity/Vol] 22 U/L Normal 0-41 [facility] Comment on above: Performed By: #### P INR, BMP, , CBC #### [facility] ([id number]) [address], [address] [place] [address] Bilirubin [Mass/Vol] 0.2 mg/dL Low 0.3-1.2 [facility] Comment on above: Performed By: #### P INR, BMP, , CBC #### [facility] ([id number]) [address], [address] [place] [address] Calcium [Mass/Vol] 8.4 mg/dL Low 8.5-10.5 [facility] Comment on above: Performed By: #### P INR, BMP, , CBC #### [facility] ([id number]) [address], [address] [place] [address] Chloride [Moles/Vol] 102 mmol/L Normal 98-109 [facility] Comment on above: Performed By: #### P INR, BMP, , CBC #### [facility] ([id number]) [address] [address] [place] [address] CO2 [Moles/Vol] 36 mmol/L High 22-32 [facility] Comment on above: Performed By: #### P INR, BMP, , CBC #### [facility] ([id number]) [address] [address] [place] [address] Creatinine [Mass/Vol] 0.44 mg/dL Low 0.60-1.30 [facility] Comment on above: Result Comment: METH OD TRACEABLE TO IDMS STANDARD Performed By: #### P INR, BMP, , CBC #### [facility] ([id number]) [address] [place] [address] eGFR (CKD-EPI) NON-RACE DEPENDENT >90 Normal >59 [facility] Comment on above: Result Comment: Reported eGFR is based on the CKD-EPI 2020 equation that does not use a race coefficient. Performed By: #### P INR, BMP, , CBC #### [facility] ([id number]) [address] [address] [place] [address] Glucose [Mass/Vol] 94 mg/dL Normal 65-99 [facility] Comment on above: Performed By: #### P INR, BMP, , CBC #### [facility] ([id number]) [address] [address] [place] [address] Potassium [Moles/Vol] 3.9 mmol/L Normal 3.5-5.0 [facility] Comment on above: Performed By: #### P INR, BMP, , CBC #### [facility] ([id number]) [address] [address] [place] [address] Protein [Mass/Vol] 6.1 g/dL Normal 6.0-8.0 [facility] Comment on above: Performed By: #### P INR, BMP, , CBC #### [facility] ([id number]) [address], [address] [place] [address] Sodium [Moles/Vol] 143 mmol/L Normal 134-146 [facility] Comment on above: Performed By: #### P INR, [facility], , CBC #### [facility] ([id number]) [address] [place] [address] Urea nitrogen [Mass/Vol] 15 mg/dL Normal 5-27 [facility] Comment on above: Performed By: #### P INR, [facility], , CBC #### [facility] ([id number]) [address] [place] [address] Comprehensive metabolic pane anival 02-18-2025 Albumin [Mass/Vol] 2.8 g/dL Low 3.2 - 5.3 g/dL [facility] ALP [Catalytic activity/Vol] 52 U/L 39 - 130 U/L [facility] ALT No additional P-5'-P [Catalytic activity/Vol] 16 U/L 0 - 40 U/L [facility] Anion gap [Moles/Vol] 5 mmol/L 5 - 15 mmol/L [facility] AST [Catalytic activity/Vol] 22 U/L 0 - 41 U/L [facility] Bilirubin [Mass/Vol] 0.2 mg/dL Low 0.3 - 1 .2 mg/dL [facility] Calcium [Mass/Vol] 8.4 mg/dL Low 8.5 - 10. 5 mg/dL [facility] Chloride [Moles/Vol] 102 mmol/L 98 - 10 9 mmol/L [facility] CO2 [Moles/Vol] 36 mmol/L High 22 - 32 mmol/L [facility] Creatinine [Mass/Vol] 0.44 mg/dL Low 0.60 - 1.30 mg/dL [facility] Comment on above: METHOD TRACEABLE TO IDMS STANDARD eGFR (CKD-EPI)non-race dependent - PINF [facility] Comment on above: Reported eGFR is based on the CKD-EPI 2021 equation that does not use a race coefficient. Glucose [Mass/Vol] 94 mg/dL 65 - 99 mg/dL [facility] Interpretation and review of laboratory results Abnormal [facility] Potassium [Moles/Vol] 3.9 mmol/L 3.5 - 5.0 mmol/L [facility] Protein [Mass/Vol] 6.1 g/dL 6.0 - 8.0 g/dL [facility] Sodium [Moles/Vol] 143 mmol/L 134 - 146 mmol/L [facility] Urea nitrogen [Mass/Vol] 15 mg/dL 5 - 27 mg/dL [facility] MAGNESIUMon 02-18-2025 Magnesium [Mass/Vol] 1.8 mg/dL Normal 1.8-2.6 [facility] Comment on above: Performed By: #### P INR, BMP, , CBC #### [facility] ([id number]) [address] [place] [address] Magnesiumon 02-18-2025 Magnesium [Mass/Vol] 1.8 mg/dL 1.8 - 2 .6 mg/dL [facility] No Panel Informationon 02-18 [facility] CBC AND AUTO DIFFon 02-18-20 25 Band form neutrophils/100 WBC (Bld) 6.0 % Normal [facility] Comment on above: Performed By: #### P INR, BMP, , CBC #### [facility] ([id number]) [address] [place] [address] Eosinophils (Bld) [#/Vol] 0.3 10*3/uL Normal 0.0-0.4 [facility] Comment on above: Performed By: #### P INR, BMP, , CBC #### [facility] ([id number]) [address] [place] [address] Eosinophils/100 WBC (Bld) 5.0 % Normal [facility] Comment on above: Performed By: #### P INR, BMP, , CBC #### [facility] ([id number]) [address] [place] [address] Erythrocyte distribution width (RBC) [Ratio] 14.9 % Normal 11.5-15.0 [facility] Comment on above: Performed By: #### P INR, BMP, , CBC #### [facility] ([id number]) [address] [place] [address] Hematocrit (Bld) [Volume fraction] 25.9 % Low 39-49 [facility] Comment on above: Performed By: #### P INR, BMP, , CBC #### [facility] ([id number]) [address] [place] [address] Hemoglobin (Bld) [Mass/Vol] 8.6 g/dL Low 13.0-17.0 [facility] Comment on above: Performed By: #### P INR, BMP, , CBC #### [facility] ([id number]) [address] [place] [address] Lymphocytes (Bld) [#/Vol] 0.6 10*3/uL Low 1.0-3.5 [facility] Comment on above: Performed By: #### P INR, BMP, , CBC #### [facility] ([id number]) [address] [place] [address] Lymphocytes/100 WBC (Bld) 9.0 % Normal [facility] Comment on above: Performed By: #### P INR, BMP, , CBC #### [facility] ([id number]) [address] [place] [address] MCH (RBC) [Entitic mass] 29.5 pg Normal 27-34 [facility] Comment on above: Performed By: #### P INR, BMP, , CBC #### [facility] ([id number]) [address] [place] [address] MCHC (RBC) [Mass/Vol] 33.1 g/dL Normal 32-36 [facility] Comment on above: Performed By: #### P INR, BMP, , CBC #### [facility] ([id number]) [address] [place] [address] MCV (RBC) [Entitic vol] 89 fL Normal 80-100 [facility] Comment on above: Performed By: #### P INR, BMP, , CBC #### [facility] ([id number]) [address], [address] [place] [address] Metamyelocytes/100 WBC (Bld) 1.0 % Normal [facility] Comment on above: Performed By: #### P INR, BMP, , CBC #### [facility] ([id number]) [address], [address] [place] [address] Monocytes (Bld) [#/Vol] 0.4 10*3/uL Normal 0-0.9 [facility] Comment on above: Performed By: #### P INR, BMP, , CBC #### [facility] ([id number]) [address], [address] [place] [address] Monocytes/100 WBC (Bld) 6.0 % Normal [facility] Comment on above: Performed By: #### P INR, BMP, , CBC #### [facility] ([id number]) [address], [address] [place] [address] MYELOCYTE 2.0 % Normal [facility] Comment on above: Performed By: #### P INR, BMP, , CBC #### [facility] ([id number]) [address], [address] [place] [address] Neutrophils (Bld) [#/Vol] 5.0 10*3/uL Normal 1.5-6.6 [facility] Comment on above: Performed By: #### P INR, BMP, , CBC #### [facility] ([id number]) [address] [place] [address] OVALOCYTE 1+ Abnormal NONE [facility] Comment on above: Performed By: #### P INR, BMP, , CBC #### [facility] ([id number]) [address], [address] [place] [address] Platelet mean volume (Bld) [Entitic vol] 9.6 fL Normal 7-12 [facility] Comment on above: Performed By: #### P INR, BMP, , CBC #### [facility] ([id number]) [address], [address] [place] [address] Platelets (Bld) [#/Vol] 154 10*3/uL Normal 150-450 [facility] Comment on above: Performed By: #### P INR, BMP, , CBC #### [facility] ([id number]) [address] [place] [address] POLYCHROMASIA 1+ Abnormal NONE [facility] Comment on above: Performed By: #### P INR, BMP, , CBC #### [facility] ([id number]) [address] [place] [address] RBC COUNT 2.91 X10E12/L Low 4.10-5.70 [facility] Comment on above: Performed By: #### P INR, BMP, , CBC #### [facility] ([id number]) [address] [place] [address] SEG NEUTROPHIL 71.0 % Normal [facility] Comment on above: Performed By: #### P INR, BMP, 25436-4, CBC #### [facility] ([id number]) [address], [address] [place] [address] WBC (Bld) [#/Vol] 6.5 10*3/uL Normal 4.0-11.0 [facility] Comment on above: Performed By: #### P INR, BMP, , CBC #### [facility] ([id number]) [address] [place] [address] CBC auto differentialon 01-29 Band form neutrophils/100 WBC (Bld) 6 % [facility] Eosinophils (Bld) [#/Vol] 0.3 10*3/uL [facility] Eosinophils/100 WBC (Bld) 5 % [facility] Erythrocyte distribution width (RBC) [Ratio] 14.9 % 11.5 - 15.0 % [facility] Hematocrit (Bld) [Volume fraction] 25.9 % Low 39 - 49 % [facility] Hemoglobin (Bld) [Mass/Vol] 8.6 g/dL Low 13.0 - 17.0 g/dL [facility] Interpretation and review of laboratory results Abnormal [facility] Lymphocytes (Bld) [#/Vol] 0.6 10*3/uL Low [facility] Lymphocytes/100 WBC (Bld) 9 % [facility] MCH (RBC) [Entitic mass] 29.5 pg 27 - 34 pg [facility] MCHC (RBC) [Mass/Vol] 33.1 g/dL 32 - 36 g/dL [facility] MCV (RBC) [Entitic vol] 89 fL 80 - 100 fL [facility] Metamyelocytes/100 WBC (Bld) 1 % [facility] Monocytes (Bld) [#/Vol] 0.4 10*3/uL [facility] Monocytes/100 WBC (Bld) 6 % [facility] Myelocytes/100 WBC (Bld) 2 % [facility] Neutrophils (Bld) [#/Vol] 5 10*3/uL [facility] Ovalocytes LM Ql (Bld) 1+ Abnormal NONE^NONE [facility] Platelet mean volume (Bld) [Entitic vol] 9.6 fL 7 - 12 fL [facility] Platelets (Bld) [#/Vol] 154 10*3/uL [facility] Polychromasia LM Ql (Bld) 1+ Abnormal NONE^NONE [facility] RBC (Bld) [#/Vol] 2.91 10*6/uL Low [facility] Segmented neutrophils/100 WBC (Bld) 71 % [facility] WBC corrected for nucl RBC Auto (Bld) [#/Vol] 6.5 [facility] COMPREHENSIVE METABOLIC PANE Anival 02-17-2025 Albumin [Mass/Vol] 2.9 g/dL Low 3.2-5.3 [facility] Comment on above: Performed By: #### P INR, BMP, , CBC #### [facility] ([id number]) [address], [address] [place] [address] ALP [Catalytic activity/Vol] 56 U/L Normal 39-130 [facility] Comment on above: Performed By: #### P INR, BMP, , CBC #### [facility] ([id number]) [address], [address] [place] [address] ALT [Catalytic activity/Vol] 14 U/L Normal 0-40 [facility] Comment on above: Performed By: #### P INR, BMP, , CBC #### [facility] ([id number]) [address], [address] [place] [address] Anion gap [Moles/Vol] 7 mmol/L Normal 5-15 [facility] Comment on above: Performed By: #### P INR, BMP, , CBC #### [facility] ([id number]) [address], [address] [place] [address] AST [Catalytic activity/Vol] 21 U/L Normal 0-41 [facility] Comment on above: Performed By: #### P INR, BMP, , CBC #### [facility] ([id number]) [address] [place] [address] Bilirubin [Mass/Vol] 0.3 mg/dL Normal 0.3-1.2 [facility] Comment on above: Performed By: #### P INR, BMP, , CBC #### [facility] ([id number]) [address] [facility] [address] [place] [address] Calcium [Mass/Vol] 8.4 mg/dL Low 8.5-10.5 [facility] Comment on above: Performed By: #### P INR, BMP, , CBC #### [facility] ([id number]) [address], [address] [place] [address] Chloride [Moles/Vol] 103 mmol/L Normal 98-109 [facility] Comment on above: Performed By: #### P INR, BMP, , CBC #### [facility] ([id number]) [address], [address] [place] [address] CO2 [Moles/Vol] 30 mmol/L Normal 22-32 [facility] Comment on above: Performed By: #### P INR, BMP, , CBC #### [facility] ([id number]) [address] [place] [address] Creatinine [Mass/Vol] 0.41 mg/dL Low 0.60-1.30 [facility] Comment on above: Result Comment: METH OD TRACEABLE TO IDMS STANDARD Performed By: #### P INR, BMP, , CBC #### [facility] ([id number]) [address], [address] [place] [address] eGFR (CKD-EPI) NON-RACE DEPENDENT >90 Normal >59 [facility] Comment on above: Result Comment: Reported eGFR is based on the CKD-EPI 2020 equation that does not use a race coefficient. Performed By: #### P INR, BMP, , CBC #### [facility] ([id number]) [address], [address] [place] [address] Glucose [Mass/Vol] 98 mg/dL Normal 65-99 [facility] Comment on above: Performed By: #### P INR, BMP, , CBC #### [facility] ([id number]) [address], [address] [place] [address] Potassium [Moles/Vol] 3.8 mmol/L Normal 3.5-5.0 [facility] Comment on above: Performed By: #### P INR, BMP, , CBC #### [facility] ([id number]) [address], [address] [place] [address] Protein [Mass/Vol] 6.0 g/dL Normal 6.0-8.0 [facility] Comment on above: Performed By: #### P INR, BMP, , CBC #### [facility] ([id number]) [address], [address] [place] [address] Sodium [Moles/Vol] 140 mmol/L Normal 134-146 [facility] Comment on above: Performed By: #### P INR, BMP, , CBC #### [facility] ([id number]) [address] [place] [address] Urea nitrogen [Mass/Vol] 17 mg/dL Normal 5-27 [facility] Comment on above: Performed By: #### P INR, BMP, , CBC #### [facility] ([id number]) [address], [address] [place] [address] Comprehensive metabolic pane anival 02-17-2025 Albumin [Mass/Vol] 2.9 g/dL Low 3.2 - 5.3 g/dL [facility] ALP [Catalytic activity/Vol] 56 U/L 39 - 130 U/L [facility] ALT No additional P-5'-P [Catalytic activity/Vol] 14 U/L 0 - 40 U/L [facility] Anion gap [Moles/Vol] 7 mmol/L 5 - 15 mmol/L [facility] AST [Catalytic activity/Vol] 21 U/L 0 - 41 U/L [facility] Bilirubin [Mass/Vol] 0.3 mg/dL 0.3 - 1 .2 mg/dL [facility] Calcium [Mass/Vol] 8.4 mg/dL Low 8.5 - 10. 5 mg/dL [facility] Chloride [Moles/Vol] 103 mmol/L 98 - 10 9 mmol/L [facility] CO2 [Moles/Vol] 30 mmol/L 22 - 32 mmol/L [facility] Creatinine [Mass/Vol] 0.41 mg/dL Low 0.60 - 1.30 mg/dL [facility] Comment on above: METHOD TRACEABLE TO [facility] STANDARD eGFR (CKD-EPI)non-race dependent - PINF [facility] Comment on above: Reported eGFR is based on the CKD-EPI 2020 equation that does not use a race coefficient. Glucose [Mass/Vol] 98 mg/dL 65 - 99 mg/dL [facility] Interpretation and review of laboratory results Abnormal [facility] Potassium [Moles/Vol] 3.8 mmol/L 3.5 - 5.0 mmol/L [facility] Protein [Mass/Vol] 6 g/dL 6.0 - 8.0 g/dL [facility] Sodium [Moles/Vol] 140 mmol/L 134 - 146 mmol/L [facility] Urea nitrogen [Mass/Vol] 17 mg/dL 5 - 27 mg/dL [facility] MAGNESIUMon 02-17-2025 Magnesium [Mass/Vol] 1.8 mg/dL Normal 1.8-2.6 [facility] Comment on above: Performed By: #### P INR, BMP, 76058-1, CBC #### [facility] ([id number]) [address], [address] [place] [address] Magnesiumon 02-17-2025 Magnesium [Mass/Vol] 1.8 mg/dL 1.8 - 2 .6 mg/dL [facility] No Panel Informationon 02-17 [facility] CBC AND AUTO DIFFon 02-17-20 ABSOLUTE BASOPHIL 0.0 X10E9/L Normal 0.0-0.2 [facility] Comment on above: Performed By: #### P INR, BMP, , CBC #### [facility] ([id number]) [address], [address] [place] [address] ABSOLUTE NEUTROPHIL 4.6 X10E9/L Normal 1.5-6.6 [facility] Comment on above: Performed By: #### P INR, BMP, , CBC #### [facility] ([id number]) [address], [address] [place] [address] Basophils/100 WBC (Bld) 0.7 % Normal [facility] Comment on above: Performed By: #### P INR, BMP, , CBC #### [facility] ([id number]) [address], [address] [place] [address] Eosinophils (Bld) [#/Vol] 0.4 10*3/uL Normal 0.0-0.4 [facility] Comment on above: Performed By: #### P INR, BMP, , CBC #### [facility] ([id number]) [address], [address] [place] [address] Eosinophils/100 WBC (Bld) 5.8 % Normal [facility] Comment on above: Performed By: #### P INR, BMP, , CBC #### [facility] ([id number]) [address] [place] [address] Erythrocyte distribution width (RBC) [Ratio] 14.5 % Normal 11.5-15.0 [facility] Comment on above: Performed By: #### P INR, BMP, , CBC #### [facility] ([id number]) [address], [address] [place] [address] Hematocrit (Bld) [Volume fraction] 25.3 % Low 39-49 [facility] Comment on above: Performed By: #### P INR, BMP, , CBC #### [facility] ([id number]) [address], [address] [place] [address] Hemoglobin (Bld) [Mass/Vol] 8.4 g/dL Low 13.0-17.0 [facility] Comment on above: Performed By: #### P INR, BMP, , CBC #### [facility] ([id number]) [address] [place] [address] Lymphocytes (Bld) [#/Vol] 0.5 10*3/uL Low 1.0-3.5 [facility] Comment on above: Performed By: #### P INR, BMP, , CBC #### [facility] ([id number]) [address], [address] [place] [address] Lymphocytes/100 WBC (Bld) 7.8 % Normal [facility] Comment on above: Performed By: #### P INR, BMP, , CBC #### [facility] ([id number]) [address], [address] [place] [address] MCH (RBC) [Entitic mass] 29.7 pg Normal 27-34 [facility] Comment on above: Performed By: #### P INR, BMP, , CBC #### [facility] ([id number]) [address], [address] [place] [address] MCHC (RBC) [Mass/Vol] 33.3 g/dL Normal 32-36 [facility] Comment on above: Performed By: #### P INR, BMP, , CBC #### [facility] ([id number]) [address] [place] [address] MCV (RBC) [Entitic vol] 89 fL Normal 80-100 [facility] Comment on above: Performed By: #### P INR, BMP, , CBC #### [facility] ([id number]) [address] [place] [address] Monocytes (Bld) [#/Vol] 0.8 10*3/uL Normal 0-0.9 [facility] Comment on above: Performed By: #### P INR, BMP, , CBC #### [facility] ([id number]) [address] [place] [address] Monocytes/100 WBC (Bld) 12.4 % Normal [facility] Comment on above: Performed By: #### P INR, BMP, , CBC #### [facility] ([id number]) [address] [place] [address] Neutrophils/100 WBC (Bld) 73.3 % Normal [facility] Comment on above: Performed By: #### P INR, BMP, , CBC #### [facility] ([id number]) [address] [place] [address] Platelet mean volume (Bld) [Entitic vol] 8.6 fL Normal 7-12 [facility] Comment on above: Performed By: #### P INR, BMP, , CBC #### [facility] ([id number]) [address] [place] [address] Platelets (Bld) [#/Vol] 92 10*3/uL Low 150-450 [facility] Comment on above: Performed By: #### P INR, BMP, , CBC #### [facility] ([id number]) [address] [place] [address] RBC COUNT 2.84 X10E12/L Low 4.10-5.70 [facility] Comment on above: Performed By: #### P INR, BMP, , CBC #### [facility] ([id number]) [address] [place] [address] WBC (Bld) [#/Vol] 6.3 10*3/uL Normal 4.0-11.0 [facility] Comment on above: Performed By: #### P INR, BMP, , CBC #### [facility] ([id number]) [address] [place] [address] CBC auto differentialon 01-29 Basophils (Bld) [#/Vol] 0 10*3/uL [facility] Basophils/100 WBC (Bld) 0.7 % [facility] Eosinophils (Bld) [#/Vol] 0.4 10*3/uL [facility] Eosinophils/100 WBC (Bld) 5.8 % [facility] Erythrocyte distribution width (RBC) [Ratio] 14.5 % 11.5 - 15.0 % [facility] Hematocrit (Bld) [Volume fraction] 25.3 % Low 39 - 49 % [facility] Hemoglobin (Bld) [Mass/Vol] 8.4 g/dL Low 13.0 - 17.0 g/dL [facility] Interpretation and review of laboratory results Abnormal [facility] Lymphocytes (Bld) [#/Vol] 0.5 10*3/uL Low [facility] Lymphocytes/100 WBC (Bld) 7.8 % [facility] MCH (RBC) [Entitic mass] 29.7 pg 27 - 34 pg [facility] MCHC (RBC) [Mass/Vol] 33.3 g/dL 32 - 36 g/dL [facility] MCV (RBC) [Entitic vol] 89 fL 80 - 100 fL [facility] Monocytes (Bld) [#/Vol] 0.8 10*3/uL [facility] Monocytes/100 WBC (Bld) 12.4 % [facility] Neutrophils (Bld) [#/Vol] 4.6 10*3/uL [facility] Neutrophils/100 WBC (Bld) 73.3 % [facility] Platelet mean volume (Bld) [Entitic vol] 8.6 fL 7 - 12 fL [facility] Platelets (Bld) [#/Vol] 92 10*3/uL Low [facility] RBC (Bld) [#/Vol] 2.84 10*6/uL Low [facility] WBC corrected for nucl RBC Auto (Bld) [#/Vol] 6.3 [facility] COMPREHENSIVE METABOLIC PANE Anival 02-16-2025 Albumin [Mass/Vol] 2.7 g/dL Low 3.2-5.3 [facility] Comment on above: Performed By: #### P INR, BMP, , CBC #### [facility] ([id number]) [address] [place] [address] ALP [Catalytic activity/Vol] 57 U/L Normal 39-130 [facility] Comment on above: Performed By: #### P INR, BMP, , CBC #### [facility] ([id number]) [address] [place] [address] ALT [Catalytic activity/Vol] 16 U/L Normal 0-40 [facility] Comment on above: Performed By: #### P INR, BMP, , CBC #### [facility] ([id number]) [address] [place] [address] Anion gap [Moles/Vol] 8 mmol/L Normal 5-15 [facility] Comment on above: Performed By: #### P INR, BMP, , CBC #### [facility] ([id number]) [address] [place] [address] AST [Catalytic activity/Vol] 16 U/L Normal 0-41 [facility] Comment on above: Performed By: #### P INR, BMP, , CBC #### [facility] ([id number]) [address] [place] [address] Bilirubin [Mass/Vol] 0.3 mg/dL Normal 0.3-1.2 [facility] Comment on above: Performed By: #### P INR, BMP, , CBC #### [facility] ([id number]) [address] [place] [address] Calcium [Mass/Vol] 8.4 mg/dL Low 8.5-10.5 [facility] Comment on above: Performed By: #### P INR, BMP, , CBC #### [facility] ([id number]) [address] [place] [address] Chloride [Moles/Vol] 105 mmol/L Normal 98-109 [facility] Comment on above: Performed By: #### P INR, BMP, , CBC #### [facility] ([id number]) [address] [place] [address] CO2 [Moles/Vol] 28 mmol/L Normal 22-32 [facility] Comment on above: Performed By: #### P INR, BMP, , CBC #### [facility] ([id number]) [address] [place] [address] Creatinine [Mass/Vol] 0.45 mg/dL Low 0.60-1.30 [facility] Comment on above: Result Comment: METH OD TRACEABLE TO IDMS STANDARD Performed By: #### P INR, BMP, , CBC #### [facility] ([id number]) [address] [place] [address] eGFR (CKD-EPI) NON-RACE DEPENDENT >90 Normal >59 [facility] Comment on above: Result Comment: Reported eGFR is based on the CKD-EPI 2020 equation that does not use a race coefficient. Performed By: #### P INR, BMP, , CBC #### [facility] ([id number]) [address] [place] [address] Glucose [Mass/Vol] 96 mg/dL Normal 65-99 [facility] Comment on above: Performed By: #### P INR, BMP, , CBC #### [facility] ([id number]) [address] [place] [address] Potassium [Moles/Vol] 3.6 mmol/L Normal 3.5-5.0 [facility] Comment on above: Performed By: #### P INR, BMP, , CBC #### [facility] ([id number]) [address] [place] [address] Protein [Mass/Vol] 5.9 g/dL Low 6.0-8.0 [facility] Comment on above: Performed By: #### P INR, BMP, , CBC #### [facility] ([id number]) [address] [place] [address] Sodium [Moles/Vol] 141 mmol/L Normal 134-146 [facility] Comment on above: Performed By: #### P INR, BMP, , CBC #### [facility] ([id number]) [address] [place] [address] Urea nitrogen [Mass/Vol] 10 mg/dL Normal 5-27 [facility] Comment on above: Performed By: #### P INR, BMP, , CBC #### [facility] ([id number]) [address] [place] [address] CT ABDOMEN AND PELVIS W CONT on 02-16-[address]25 CT ABDOMEN AND PELVIS W CONT CT ABDOMEN AND PELVIS W CONT Study: CT abdomen and pelvis with contrast [...] Yrn Navarro MD on 02/16/2025 12:09 PM Normal [facility] CT Abdomen and Pelvis W cont rast Alissa 02-16-2025 Study: CT abdomen an d pelvis with contrast History:Sepsis Protocol:CT abdomen and [...] Yrn Navarro MD on 02/16/2025 12:09 PM [facility] Yrn Navarro M D - 02/16/2025 Study: CT abdomen and pelvis [...] Yrn Navarro MD on 02/16/2025 12:09 PM [employer] Radiology Study observation (narrative) [employer] CT Abdomen and Pelvis W cont rast IVOrdered By: Yrn Navarro on 02-16-2025 [employer] Work Phone: Comprehensive metabolic pane anival 02-16-2025 Albumin [Mass/Vol] 2.7 g/dL Low 3.2 - 5.3 g/dL [facility] ALP [Catalytic activity/Vol] 57 U/L 39 - 130 U/L [facility] ALT No additional P-5'-P [Catalytic activity/Vol] 16 U/L 0 - 40 U/L [facility] Anion gap [Moles/Vol] 8 mmol/L 5 - 15 mmol/L [facility] AST [Catalytic activity/Vol] 16 U/L 0 - 41 U/L [facility] Bilirubin [Mass/Vol] 0.3 mg/dL 0.3 - 1 .2 mg/dL [facility] Calcium [Mass/Vol] 8.4 mg/dL Low 8.5 - 10. 5 mg/dL [facility] Chloride [Moles/Vol] 105 mmol/L 98 - 10 9 mmol/L [facility] CO2 [Moles/Vol] 28 mmol/L 22 - 32 mmol/L [facility] Creatinine [Mass/Vol] 0.45 mg/dL Low 0.60 - 1.30 mg/dL [facility] Comment on above: METHOD TRACEABLE TO [facility] STANDARD eGFR (CKD-EPI)non-race dependent - PINF [facility] Comment on above: Reported eGFR is based on the CKD-EPI 2020 equation that does not use a race coefficient. Glucose [Mass/Vol] 96 mg/dL 65 - 99 mg/dL [facility] Interpretation and review of laboratory results Abnormal [facility] Potassium [Moles/Vol] 3.6 mmol/L 3.5 - 5.0 mmol/L [facility] Protein [Mass/Vol] 5.9 g/dL Low 6.0 - 8.0 g/dL [facility] Sodium [Moles/Vol] 141 mmol/L 134 - 146 mmol/L [facility] Urea nitrogen [Mass/Vol] 10 mg/dL 5 - 27 mg/dL [facility] MAGNESIUMon 02-16-2025 Magnesium [Mass/Vol] 2.0 mg/dL Normal 1.8-2.6 [facility] Comment on above: Performed By: #### P INR, BMP, 16325-0, CBC #### [facility] ([id number]) [address] [place] [address] Magnesiumon 02-16-2025 Magnesium [Mass/Vol] 2 mg/dL 1.8 - 2 .6 mg/dL [facility] No Panel Informationon 02-16 [facility] BLOOD CULTUREon 02-15-2025 Bacteria identified Aer cx Nom (Bld) SPECIMEN NOTES SUBOPTIMAL VOLUME OF BLOOD COLLECTED, RESULTS MAY BE AFFECTED. CULTURE RESULTS NO GROWTH 5 DAYS Normal [facility] Comment on above: Performed By: #### P INR, BMP, , CBC #### [facility] ([id number]) [address], [address] [place] [address] CBC AND AUTO DIFFon 02-16-20 ABSOLUTE BASOPHIL 0.1 X10E9/L Normal 0.0-0.2 [facility] Comment on above: Performed By: #### P INR, BMP, , CBC #### [facility] ([id number]) [address], [address] [place] [address] ABSOLUTE NEUTROPHIL 4.7 X10E9/L Normal 1.5-6.6 [facility] Comment on above: Performed By: #### P INR, BMP, , CBC #### [facility] ([id number]) [address], [address] [place] [address] Basophils/100 WBC (Bld) 1.1 % Normal [facility] Comment on above: Performed By: #### P INR, BMP, , CBC #### [facility] ([id number]) [address], [address] [place] [address] Eosinophils (Bld) [#/Vol] 0.4 10*3/uL Normal 0.0-0.4 [facility] Comment on above: Performed By: #### P INR, BMP, , CBC #### [facility] ([id number]) [address], [address] [place] [address] Eosinophils/100 WBC (Bld) 5.9 % Normal [facility] Comment on above: Performed By: #### P INR, BMP, , CBC #### [facility] ([id number]) [address], [address] [place] [address] Erythrocyte distribution width (RBC) [Ratio] 14.7 % Normal 11.5-15.0 [facility] Comment on above: Performed By: #### P INR, BMP, , CBC #### [facility] ([id number]) [address], [address] [place] [address] Hematocrit (Bld) [Volume fraction] 25.6 % Low 39-49 [facility] Comment on above: Performed By: #### P INR, BMP, , CBC #### [facility] ([id number]) [address], [address] [place] [address] Hemoglobin (Bld) [Mass/Vol] 8.4 g/dL Low 13.0-17.0 [facility] Comment on above: Performed By: #### P INR, BMP, , CBC #### [facility] ([id number]) [address], [address] [place] [address] Lymphocytes (Bld) [#/Vol] 0.4 10*3/uL Low 1.0-3.5 [facility] Comment on above: Performed By: #### P INR, BMP, , CBC #### [facility] ([id number]) [address], [address] [place] [address] Lymphocytes/100 WBC (Bld) 6.0 % Normal [facility] Comment on above: Performed By: #### P INR, BMP, , CBC #### [facility] ([id number]) [address], [address] [place] [address] MCH (RBC) [Entitic mass] 29.5 pg Normal 27-34 [facility] Comment on above: Performed By: #### P INR, BMP, , CBC #### [facility] ([id number]) [address] [place] [address] MCHC (RBC) [Mass/Vol] 32.6 g/dL Normal 32-36 [facility] Comment on above: Performed By: #### P INR, BMP, , CBC #### [facility] ([id number]) [address] [facility] [facility] [address] [place] [address] MCV (RBC) [Entitic vol] 90 fL Normal 80-100 [facility] Comment on above: Performed By: #### P INR, BMP, , CBC #### [facility] ([id number]) [address] [address] Monocytes (Bld) [#/Vol] 0.8 10*3/uL Normal 0-0.9 [facility] Comment on above: Performed By: #### P INR, BMP, , CBC #### [facility] ([id number]) [address], [address] [address] Monocytes/100 WBC (Bld) 12.2 % Normal [facility] Comment on above: Performed By: #### P INR, BMP, , CBC #### [facility] ([id number]) [address], [address] [address] Neutrophils/100 WBC (Bld) 74.8 % Normal [facility] Comment on above: Performed By: #### P INR, BMP, , CBC #### [facility] ([id number]) [address] [address] Platelet mean volume (Bld) [Entitic vol] 8.4 fL Normal 7-12 [facility] Comment on above: Performed By: #### P INR, BMP, , CBC #### [facility] ([id number]) [address], [address] [place] [address] Platelets (Bld) [#/Vol] 81 10*3/uL Low 150-450 [facility] Comment on above: Performed By: #### P INR, BMP, , CBC #### [facility] ([id number]) [address], [address] [place] [address] RBC COUNT 2.84 X10E12/L Low 4.10-5.70 [facility] Comment on above: Performed By: #### P INR, BMP, , CBC #### [facility] ([id number]) [address], [address] [place] [address] WBC (Bld) [#/Vol] 6.3 10*3/uL Normal 4.0-11.0 [facility] Comment on above: Performed By: #### P INR, BMP, , CBC #### [facility] ([id number]) [address], [address] [place] [address] CBC auto differentialon 01-28 Basophils (Bld) [#/Vol] 0.1 10*3/uL [facility] Basophils/100 WBC (Bld) 1.1 % [facility] Eosinophils (Bld) [#/Vol] 0.4 10*3/uL [facility] Eosinophils/100 WBC (Bld) 5.9 % [facility] Erythrocyte distribution width (RBC) [Ratio] 14.7 % 11.5 - 15.0 % [facility] Hematocrit (Bld) [Volume fraction] 25.6 % Low 39 - 49 % [facility] Hemoglobin (Bld) [Mass/Vol] 8.4 g/dL Low 13.0 - 17.0 g/dL [facility] Interpretation and review of laboratory results Abnormal [facility] Lymphocytes (Bld) [#/Vol] 0.4 10*3/uL Low [facility] Lymphocytes/100 WBC (Bld) 6 % [facility] MCH (RBC) [Entitic mass] 29.5 pg 27 - 34 pg [facility] MCHC (RBC) [Mass/Vol] 32.6 g/dL 32 - 36 g/dL [facility] MCV (RBC) [Entitic vol] 90 fL 80 - 100 fL [facility] Monocytes (Bld) [#/Vol] 0.8 10*3/uL [facility] Monocytes/100 WBC (Bld) 12.2 % [facility] Neutrophils (Bld) [#/Vol] 4.7 10*3/uL [facility] Neutrophils/100 WBC (Bld) 74.8 % [facility] Platelet mean volume (Bld) [Entitic vol] 8.4 fL 7 - 12 fL [facility] Platelets (Bld) [#/Vol] 81 10*3/uL Low [facility] RBC (Bld) [#/Vol] 2.84 10*6/uL Low [facility] WBC corrected for nucl RBC Auto (Bld) [#/Vol] 6.3 [facility] COMPREHENSIVE METABOLIC PANE Anival 02-15-2025 Albumin [Mass/Vol] 2.7 g/dL Low 3.2-5.3 [facility] Comment on above: Performed By: #### P INR, BMP, , CBC #### [facility] ([id number]) [address], [address] [place] [address] ALP [Catalytic activity/Vol] 61 U/L Normal 39-130 [facility] Comment on above: Performed By: #### P INR, BMP, , CBC #### [facility] ([id number]) [address], [address] [place] [address] ALT [Catalytic activity/Vol] 21 U/L Normal 0-40 [facility] Comment on above: Performed By: #### P INR, BMP, , CBC #### [facility] ([id number]) [address], [address] [place] [address] Anion gap [Moles/Vol] 7 mmol/L Normal 5-15 [facility] Comment on above: Performed By: #### P INR, BMP, , CBC #### [facility] ([id number]) [address], [address] [place] [address] AST [Catalytic activity/Vol] 17 U/L Normal 0-41 [facility] Comment on above: Performed By: #### P INR, BMP, , CBC #### [facility] ([id number]) [address], [address] [place] [address] Bilirubin [Mass/Vol] 0.3 mg/dL Normal 0.3-1.2 [facility] Comment on above: Performed By: #### P INR, BMP, , CBC #### [facility] ([id number]) [address], [address] [place] [address] Calcium [Mass/Vol] 8.4 mg/dL Low 8.5-10.5 [facility] Comment on above: Performed By: #### P INR, BMP, , CBC #### [facility] ([id number]) [address], [address] [place] [address] Chloride [Moles/Vol] 106 mmol/L Normal 98-109 [facility] Comment on above: Performed By: #### P INR, BMP, , CBC #### [facility] ([id number]) [address], [address] [place] [address] CO2 [Moles/Vol] 27 mmol/L Normal 22-32 [facility] Comment on above: Performed By: #### P INR, BMP, , CBC #### [facility] ([id number]) [address], [address] [place] [address] Creatinine [Mass/Vol] 0.46 mg/dL Low 0.60-1.30 [facility] Comment on above: Result Comment: METH OD TRACEABLE TO IDMS STANDARD Performed By: #### P INR, BMP, , CBC #### [facility] ([id number]) [address], [address] [place] [address] eGFR (CKD-EPI) NON-RACE DEPENDENT >90 Normal >59 [facility] Comment on above: Result Comment: Reported eGFR is based on the CKD-EPI 2020 equation that does not use a race coefficient. Performed By: #### P INR, BMP, , CBC #### [facility] ([id number]) [address], [address] [place] [address] Glucose [Mass/Vol] 93 mg/dL Normal 65-99 [facility] Comment on above: Performed By: #### P INR, BMP, , CBC #### [facility] ([id number]) [address], [address] [place] [address] Potassium [Moles/Vol] 3.9 mmol/L Normal 3.5-5.0 [facility] Comment on above: Performed By: #### P INR, BMP, , CBC #### [facility] ([id number]) [address], [address] [place] [address] Protein [Mass/Vol] 5.9 g/dL Low 6.0-8.0 [facility] Comment on above: Performed By: #### P INR, BMP, , CBC #### [facility] ([id number]) [address], [address] [place] [address] Sodium [Moles/Vol] 140 mmol/L Normal 134-146 [facility] Comment on above: Performed By: #### P INR, BMP, , CBC #### [facility] ([id number]) [address], [address] [place] [address] Urea nitrogen [Mass/Vol] 18 mg/dL Normal 5-27 [facility] Comment on above: Performed By: #### P INR, BMP, [address]76-1, CBC #### [facility] ([id number]) [address], [address] [place] [address] Cobalamin (Vitamin B12) [Mas s/Vol]on 02-15-2025 Interpretation and review of laboratory results Abnormal [facility] Comprehensive metabolic pane anival 02-15-2025 Albumin [Mass/Vol] 2.7 g/dL Low 3.2 - 5.3 g/dL [facility] ALP [Catalytic activity/Vol] 61 U/L 39 - 130 U/L [facility] ALT No additional P-5'-P [Catalytic activity/Vol] 21 U/L 0 - 40 U/L [facility] Anion gap [Moles/Vol] 7 mmol/L 5 - 15 mmol/L [facility] AST [Catalytic activity/Vol] 17 U/L 0 - 41 U/L [facility] Bilirubin [Mass/Vol] 0.3 mg/dL 0.3 - 1 .2 mg/dL [facility] Calcium [Mass/Vol] 8.4 mg/dL Low 8.5 - 10. 5 mg/dL [facility] Chloride [Moles/Vol] 106 mmol/L 98 - 10 9 mmol/L [facility] CO2 [Moles/Vol] 27 mmol/L 22 - 32 mmol/L [facility] Creatinine [Mass/Vol] 0.46 mg/dL Low 0.60 - 1.30 mg/dL [facility] Comment on above: METHOD TRACEABLE TO IDMN STANDARD eGFR (CKD-EPI)non-race dependent - PINF [facility] Comment on above: Reported eGFR is based on the CKD-EPI 2020 equation that does not use a race coefficient. Glucose [Mass/Vol] 93 mg/dL 65 - 99 mg/dL [facility] Interpretation and review of laboratory results Abnormal [facility] Potassium [Moles/Vol] 3.9 mmol/L 3.5 - 5.0 mmol/L [facility] Protein [Mass/Vol] 5.9 g/dL Low 6.0 - 8.0 g/dL [facility] Sodium [Moles/Vol] 140 mmol/L 134 - 146 mmol/L [facility] Urea nitrogen [Mass/Vol] 18 mg/dL 5 - 27 mg/dL [facility] FERRITINon 02-15-2025 Ferritin [Mass/Vol] 136 ng/mL Normal 24-336 [facility] Comment on above: Performed By: #### P INR, BMP, , CBC #### [facility] ([id number]) [address], [address] [place] [address] Ferritinon 02-15-2025 Ferritin [Mass/Vol] 136 ng/mL 24 - 336 ng/mL P [facility] Ferritin [Mass/Vol]on 2024 [facility] Folateon 02-15-2025 Folate [Mass/Vol] ng/mL 5.8 - PINF ng/mL [facility] Comment on above: NEW REFERENCE RANGE Folate [Mass/Vol]on 02-16-20 25 [facility] FOLIC ACID >25.0 Normal >5.8 [facility] Comment on above: Result Comment: NEW REFERENCE RANGE Performed By: #### P INR, BMP, , CBC #### [facility] ([id number]) [address], [address] [place] [address] IRON PROFILEon 02-15-2025 Iron [Mass/Vol] 25 ug/dL Low 50-212 [facility] Comment on above: Performed By: #### P INR, BMP, , CBC #### [facility] ([id number]) [address], [address] [place] [address] IRON BINDING 200 ug/dL Low 250-425 [facility] Comment on above: Performed By: #### P INR, BMP, , CBC #### [facility] ([id number]) [address], [address] [place] [address] IRON SATURATION 12 % SATURATION Low 20-50 [facility] Comment on above: Performed By: #### P INR, BMP, , CBC #### [facility] ([id number]) [address], [address] [place] [address] Iron and TIBCon 02-15-2025 Interpretation and review of laboratory results Abnormal [facility] Iron [Mass/Vol] 25 ug/dL Low 50 - 212 ug/dL [facility] Iron binding capacity [Mass/Vol] 200 ug/dL Low 250 - 425 ug/dL [facility] Iron saturation [Mass fraction] 12 Low [facility] MAGNESIUMon 02-15-2025 Magnesium [Mass/Vol] 2.5 mg/dL Normal 1.8-2.6 [facility] Comment on above: Performed By: #### P INR, BMP, , CBC #### [facility] ([id number]) [address], [address] [place] [address] Magnesium [Mass/Vol] 1.8 mg/dL Normal 1.8-2.6 [facility] Comment on above: Performed By: #### P INR, BMP, , CBC #### [facility] ([id number]) [address], [address] [place] [address] Magnesiumon 02-15-2025 Magnesium [Mass/Vol] 2.5 mg/dL 1.8 - 2 .6 mg/dL [facility] Magnesium [Mass/Vol] 1.8 mg/dL 1.8 - 2 .6 mg/dL [facility] Magnesium [Mass/Vol]on 02-15 [facility] No Panel Informationon 02-15 [facility] Procalcitoninon 02-15-2025 Procalcitonin IA [Mass/Vol] 15.22 ng/mL High NINF - 0.05 ng/mL [facility] Comment on above: NOTE <0.50 ng/mL - Low risk of severe sepsis and/or septic shock. <2.00 ng/mL - Recommend retesting within 6-24 hours. >2.00 ng/mL - High risk of sepsis and/or septic shock. Procalcitonin IA [Mass/Vol]o n 02-15-2025 Interpretation and review of laboratory results Abnormal [facility] PROCALCITONIN 15.22 ng/mL High <0.05 [facility] Comment on above: Result Comment: NOTE <0.50 ng/mL - Low risk of severe sepsis and/or septic shock. <2.00 ng/mL - Recommend retesting within 6-24 hours. >2.00 ng/mL - High risk of sepsis and/or septic shock. Performed By: #### P INR, BMP, , CBC #### [facility] ([id number]) [address], [address] [place] [address] VITAMIN B12on 02-15-2025 Cobalamin (Vitamin B12) [Mass/Vol] 1318 pg/mL High 180-914 [facility] Comment on above: Performed By: #### P INR, BMP, , CBC #### [facility] ([id number]) [address], [address] [place] [address] Vitamin B12on 02-15-2025 Cobalamin (Vitamin B12) [Mass/Vol] 1318 pg/mL High 180 - 914 pg/mL [facility] CBC AND AUTO DIFFon 02-15-20 25 ABSOLUTE BASOPHIL 0.1 X10E9/L Normal 0.0-0.2 [facility] Comment on above: Performed By: #### C BCA, CMP, #### [facility] ([id number]) [address] [place] [address], [place] [address] #### FEPR, 2276-4, 2284-8, 2131-9, 13641-3 #### [facility] ([id number]) [address], [address] [place] [address] ABSOLUTE NEUTROPHIL 9.3 X10E9/L High 1.5-6.6 [facility] Comment on above: Performed By: #### C BCA, CMP, #### [facility] ([id number]) [address] [place] [address] #### FEPR, 6-4, 2283-8, 9, 47938-3 #### [facility] ([id number]) [address], [address] [place] [address] Basophils/100 WBC (Bld) 0.5 % Normal [facility] Comment on above: Performed By: #### C ERNESTINA, CMP, #### [facility] ([id number]) [address] [place] [address] #### FEPR, 2275-4, 2283-8, 2132-07, 30149-2 #### [facility] ([id number]) [address] [place] [address] Eosinophils (Bld) [#/Vol] 0.2 10*3/uL Normal 0.0-0.4 [facility] Comment on above: Performed By: #### Paula BCA, CMP, #### [facility] ([id number]) [address] [place] [address] #### FEPR, 6-4, 8, 2132-07, 23810-4 #### [facility] ([id number]) [address] [place] [address] Eosinophils/100 WBC (Bld) 2.0 % Normal [facility] Comment on above: Performed By: #### C BCA, CMP, #### [facility] ([id number]) [address] [place] [address] #### FEPR, 6-4, 8, 2132-07, 48960-1 #### [facility] ([id number]) [address] [place] [address] Erythrocyte distribution width (RBC) [Ratio] 15.1 % High 11.5-15.0 [facility] Comment on above: Performed By: #### C ERNESTINA, [facility], [address]-8 #### [facility] ([id number]) [address] [place] [address] #### FEPR, 6-4, 2283-8, 9, 26804-9 #### [facility] ([id number]) [address] [place] [address] Hematocrit (Bld) [Volume fraction] 26.7 % Low 39-49 [facility] Comment on above: Performed By: #### C ERNESTINA, [facility], #### [facility] ([id number]) [address] [place] [address] #### FEPR, 6-4, 2283-8, 9, 79249-5 #### [facility] ([id number]) [address] [place] [address] Hemoglobin (Bld) [Mass/Vol] 8.9 g/dL Low 13.0-17.0 [facility] Comment on above: Performed By: #### C ERNESTINA, [facility], #### [facility] ([id number]) [address] [place] [address] #### FEPR, 6-4, 2283-8, 9, 55412-7 #### [facility] ([id number]) [address] [place] [address] Lymphocytes (Bld) [#/Vol] 0.4 10*3/uL Low 1.0-3.5 [facility] Comment on above: Performed By: #### C BCA, CMP, #### [facility] ([id number]) [address] [place] [address] #### FEPR, 2276-4, 2284-8, 2131-9, 33585-7 #### [facility] ([id number]) [address] [place] [address] Lymphocytes/100 WBC (Bld) 3.8 % Normal [facility] Comment on above: Performed By: #### C BCA, CMP, #### [facility] ([id number]) [address] [place] [address] #### FEPR, 2276-4, 2284-8, 9, 54319-6 #### [facility] ([id number]) [address] [place] [address] MCH (RBC) [Entitic mass] 30.1 pg Normal 27-34 [facility] Comment on above: Performed By: #### C BCA, CMP, #### [facility] ([id number]) [address] [place] [address] #### FEPR, 2276-4, 2284-8, 2131-9, 28476-1 #### [facility] ([id number]) [address] [place] [address] MCHC (RBC) [Mass/Vol] 33.4 g/dL Normal 32-36 [facility] Comment on above: Performed By: #### C BCA, CMP, #### [facility] ([id number]) [address] [place] [address] #### FEPR, 2276-4, 2284-8, 2131-9, 89561-9 #### [facility] ([id number]) [address] [place] [address] MCV (RBC) [Entitic vol] 90 fL Normal 80-100 [facility] Comment on above: Performed By: #### C BCA, CMP, #### [facility] ([id number]) [address] [place] [address] #### FEPR, 6-4, 2283-8, 2132-07, 79688-3 #### [facility] ([id number]) [address] [place] [address] Monocytes (Bld) [#/Vol] 0.8 10*3/uL Normal 0-0.9 [facility] Comment on above: Performed By: #### C BCA, CMP, #### [facility] ([id number]) [address] [place] [address] #### FEPR, 6-4, 8, 2132-07, 51839-0 #### [facility] ([id number]) [address], [address] [place] [address] Monocytes/100 WBC (Bld) 7.6 % Normal [facility] Comment on above: Performed By: #### Paula BCA, CMP, #### [facility] ([id number]) [address] [place] [id number] #### FEPR, 6-4, 8, 2132-07, 50517-6 #### [facility] ([id number]) [address], [address] [place] [address] Neutrophils/100 WBC (Bld) 86.1 % Normal [facility] Comment on above: Performed By: #### C BCA, CMP, #### [facility] ([id number]) [address] [place] [address] #### FEPR, 2276-4, 4-8, 2131-9, 56631-0 #### [facility] ([id number]) [address], [address] [place] [address] Platelet mean volume (Bld) [Entitic vol] 8.6 fL Normal 7-12 [facility] Comment on above: Performed By: #### Paula DO, CMP, 19540-1 #### [facility] ([id number]) [address] [place] [address]16 #### FEPR, 6-4, 2283-8, 9, 70581-2 #### [facility] ([id number]) [address], [address] [place] [address] Platelets (Bld) [#/Vol] 85 10*3/uL Low 150-450 [facility] Comment on above: Result Comment: PLAT ELETS REVIEWED Performed By: #### Paula BCA, CMP, #### [facility] ([id number]) [address] [place] [address] 92425 #### FEPR, 6-4, 8, 9, 14901-0 #### [facility] ([id number]) [address], [address] [place] [address] RBC COUNT 2.96 X10E12/L Low 4.10-5.70 [facility] Comment on above: Performed By: #### Paula BCA, CMP, #### [facility] ([id number]) [address] [place] [address] 98579 #### FEPR, 6-4, 2283-8, 9, 30736-9 #### [facility] ([id number]) [address], [address] [place] [address] WBC (Bld) [#/Vol] 10.8 10*3/uL Normal 4.0-11.0 [facility] Comment on above: Performed By: #### C BCA, CMP, 53982-5 #### [facility] ([id number]) [address] [place] [address] 10063 #### FEPR, 6-4, 4-8, 2131-9, 20836-1 #### [facility] ([id number]) [address] [facility], [address] [place] [address] COMPREHENSIVE METABOLIC PANE Anival 02-14-2025 Albumin [Mass/Vol] 2.2 g/dL Low 3.2-5.3 [facility] Comment on above: Performed By: #### C BCA, CMP, 09773-0 #### [facility] ([id number]) [address] [place] [address]77 #### FEPR, 6-4, 2283-8, 9, 51700-6 #### [facility] ([id number]) [address] [facility], [address] [place] [address] ALP [Catalytic activity/Vol] 67 U/L Normal 39-130 [facility] Comment on above: Performed By: #### C BCA, CMP, 97510-0 #### [facility] ([id number]) [address] [place] [address] 88672 #### FEPR, 6-4, 4-8, 9, 51025-7 #### [facility] ([id number]) [address] [facility], [address] [place] [address] ALT [Catalytic activity/Vol] 37 U/L Normal 0-40 [facility] Comment on above: Performed By: #### C BCA, CMP, 78103-3 #### [facility] ([id number]) [address] [place] [address] 45765 #### FEPR, 2276-4, 2283-8, 9, 62512-2 #### [facility] ([id number]) [address], [address] [place] [address] Anion gap [Moles/Vol] 7 mmol/L Normal 5-15 [facility] Comment on above: Performed By: #### C BCA, CMP, 10214-1 #### [facility] ([id number]) [address] [place] [address] 72751 #### FEPR, 6-4, 2283-8, 9, 26545-0 #### [facility] ([id number]) [address], [address] [place] [address] AST [Catalytic activity/Vol] 24 U/L Normal 0-41 [facility] Comment on above: Performed By: #### C BCA, CMP, #### [facility] ([id number]) [address] [place] [address]00 #### FEPR, 6-4, 8, 2132-07, 48392-6 #### [facility] ([id number]) [address], [address] [place] [address] Bilirubin [Mass/Vol] 0.4 mg/dL Normal 0.3-1.2 [facility] Comment on above: Performed By: #### C BCA, CMP, #### [facility] ([id number]) [address] [place] [address]9418 #### FEPR, 6-4, 2283-8, 9, 68290-9 #### [facility] ([id number]) [address], [address] [place] [address] Calcium [Mass/Vol] 8.4 mg/dL Low 8.5-10.5 [facility] Comment on above: Performed By: #### C BCA, CMP, 57738-2 #### [facility] ([id number]) [address] [place] [address] 12780 #### FEPR, 2276-4, 2284-8, 2131-9, 79147-7 #### [facility] ([id number]) [address], [address] [place] [address] Chloride [Moles/Vol] 106 mmol/L Normal 98-109 [facility] Comment on above: Performed By: #### C BCA, CMP, 59071-0 #### [facility] ([id number]) [address] [place] [address]3333 #### FEPR, 6-4, 2283-8, 9, 12291-4 #### [facility] ([id number]) [address], [address] [place] [address] CO2 [Moles/Vol] 25 mmol/L Normal 22-32 [facility] Comment on above: Performed By: #### C BCA, CMP, #### [facility] ([id number]) [address] [place] [address] 99687 #### FEPR, 6-4, 2283-8, 9, 64305-4 #### [facility] ([id number]) [address], [address] [place] [address] Creatinine [Mass/Vol] 1.62 mg/dL High 0.70-1.20 [facility] Comment on above: Result Comment: METH OD TRACEABLE TO IDMS STANDARD Performed By: #### C BCA, CMP, #### [facility] ([id number]) [address] [place] [address] 98587 #### FEPR, 2276-4, 2284-8, 2131-9, 24222-3 #### [facility] ([id number]) [address], [address] [place] [address] GFR/1.73 sq M.predicted among non-blacks MDRD (S/P/Bld) [Vol rate/Area] 43 mL/min/{1.73_m2} Low >59 [facility] Comment on above: Result Comment: Reported eGFR is based on the CKD-EPI 2020 equation that does not use a race coefficient. Performed By: #### C BCA, CMP, 69574-8 #### [facility] ([id number]) [address] [place] [address] 00825 #### FEPR, 6-4, 8, 2132-07, 84250-7 #### [facility] ([id number]) [address], [address] [place] [address] Glucose [Mass/Vol] 154 mg/dL High 65-99 [facility] Comment on above: Performed By: #### C BCA, CMP, 60870-3 #### [facility] ([id number]) [address] [place] [address] 34293 #### FEPR, 6-4, 2284-06, 2132-07, 26714-5 #### [facility] ([id number]) [address], [address] [place] [address] Potassium [Moles/Vol] 3.6 mmol/L Normal 3.5-5.0 [facility] Comment on above: Performed By: #### C BCA, CMP, 68394-5 #### [facility] ([id number]) [address] [place] [address] 41714 #### FEPR, 6-4, 8, 2132-07, 89181-2 #### [facility] ([id number]) [address], [address] [place] [address] Protein [Mass/Vol] 6.1 g/dL Normal 6.0-8.0 [facility] Comment on above: Performed By: #### C BCA, CMP, 31957-7 #### [facility] ([id number]) [address] [place] [address] 53014 #### FEPR, 6-4, 2283-8, 9, 84683-4 #### [facility] ([id number]) [address], [address] [place] [address] Sodium [Moles/Vol] 138 mmol/L Normal 134-146 [facility] Comment on above: Performed By: #### C BCA, CMP, 71021-8 #### [facility] ([id number]) [address] [place] [address] 06500 #### FEPR, 2275-4, 8, 2132-07, 62536-1 #### [facility] ([id number]) [address], [address] [place] [address] Urea nitrogen [Mass/Vol] 46 mg/dL High 5-27 [facility] Comment on above: Performed By: #### C BCA, CMP, #### [facility] ([id number]) [address] [place] [address] 58452 #### FEPR, 2275-4, 8, 9, 29245-1 #### [facility] ([id number]) [address], [address] [place] [address] MAGNESIUMon 02-14-2025 Magnesium [Mass/Vol] 2.1 mg/dL Normal 1.8-2.6 [facility] Comment on above: Performed By: #### C BCA, CMP, #### [facility] ([id number]) [address] [place] [address] 22960 #### FEPR, 6-4, 2283-8, 2132-07, 23480-9 #### [facility] ([id number]) [address] [address], [address] [place] [address] Procalcitonin IA [Mass/Vol]o n 02-14-2025 PROCALCITONIN 28.61 ng/mL High <0.05 [facility] Comment on above: Result Comment: NOTE <0.50 ng/mL - Low risk of severe sepsis and/or septic shock. <2.00 ng/mL - Recommend retesting within 6-24 hours. >2.00 ng/mL - High risk of sepsis and/or septic shock. Performed By: #### C BCA, [facility], #### [facility] ([id number]) [address] [place] [address] #### FEPR, 4, 2284-06, 2132-07, 42516-6 #### [facility] ([id number]) [address] [place] [address], [address] [place] [address] Vancomycin trough [Mass/Vol] on 02-14-2025 [facility] VANCOMYCIN TROUGH 10.9 ug/mL Normal 5.0-20.0 [facility] Comment on above: Performed By: #### P INR, BMP, , CBC #### [facility] ([id number]) [address] [place] [address], [address] [place] [address] Vancomycin, trough To be kareem wn prior to the 4th doseon 02-14-2025 Vancomycin trough [Mass/Vol] 10.9 ug/mL 5.0 - 20.0 ug/mL [facility] CBC AND AUTO DIFFon 02-14-20 25 ABSOLUTE BASOPHIL 0.0 X10E9/L Normal 0.0-0.2 [facility] Comment on above: Performed By: #### C BCA, CMP, #### [facility] ([id number]) [address] [place] [address] #### FEPR, 2276-4, 2283-8, 2132-07, 16878-5 #### [facility] ([id number]) [address], [address] [place] [address] ABSOLUTE NEUTROPHIL 13.0 X10E9/L High 1.5-6.6 [facility] Comment on above: Performed By: #### C ERNESTINA, CMP, #### [facility] ([id number]) [address] [place] [address] 47795 #### FEPR, 2275-4, 8, 2132-07, 00551-8 #### [facility] ([id number]) [address] [facility], [address] [place] [address] Basophils/100 WBC (Bld) 0.2 % Normal [facility] Comment on above: Performed By: #### Paula BCA, CMP, #### [facility] ([id number]) [address] [place] [address] 23128 #### FEPR, 2275-, 2284-06, 2132-07, 00371-0 #### [facility] ([id number]) [address] [facility], [address] [place] [address] Eosinophils (Bld) [#/Vol] 0.1 10*3/uL Normal 0.0-0.4 [facility] Comment on above: Performed By: #### C BCA, CMP, #### [facility] ([id number]) [address] [place] [address] 80637 #### FEPR, 6-4, 2284-06, 2132-07, 49289-8 #### [facility] ([id number]) [address], [address] [place] [address] Eosinophils/100 WBC (Bld) 0.5 % Normal [facility] Comment on above: Performed By: #### C BCA, CMP, #### [facility] ([id number]) [address] [place] [address] 52181 #### FEPR, 2276-4, 4-8, 9, 52348-3 #### [facility] ([id number]) [address], [address] [place] [address] Erythrocyte distribution width (RBC) [Ratio] 14.6 % Normal 11.5-15.0 [facility] Comment on above: Performed By: #### C BCA, CMP, #### [facility] ([id number]) [address] [place] [address] 17830 #### FEPR, 6-4, 2283-8, 9, 47022-6 #### [facility] ([id number]) [address], [address] [place] [address] Hematocrit (Bld) [Volume fraction] 27.6 % Low 39-49 [facility] Comment on above: Performed By: #### C BCA, CMP, #### [facility] ([id number]) [address] [place] [address] 96804 #### FEPR, 6-4, 2283-8, 9, 12052-1 #### [facility] ([id number]) [address], [address] [place] [address] Hemoglobin (Bld) [Mass/Vol] 9.1 g/dL Low 13.0-17.0 [facility] Comment on above: Performed By: #### C BCA, CMP, #### [facility] ([id number]) [address] [place] [address] 57807 #### FEPR, 2276-4, 2284-8, 9, 71174-1 #### [facility] ([id number]) [address], [address] [place] [address] Lymphocytes (Bld) [#/Vol] 0.5 10*3/uL Low 1.0-3.5 [facility] Comment on above: Performed By: #### C BCA, CMP, 01512-0 #### [facility] ([id number]) [address] [place] [address] 81047 #### FEPR, 2276-4, 2284-8, 2131-9, 93116-8 #### [facility] ([id number]) [address] [facility], [address] [place] [address] Lymphocytes/100 WBC (Bld) 3.4 % Normal [facility] Comment on above: Performed By: #### C BCA, CMP, 02356-1 #### [facility] ([id number]) [address] [place] [address] 22474 #### FEPR, 2276-4, 4-8, 2131-9, 08834-6 #### [facility] ([id number]) [address] [facility], [address] [place] [address] MCH (RBC) [Entitic mass] 29.6 pg Normal 27-34 [facility] Comment on above: Performed By: #### C BCA, CMP, #### [facility] ([id number]) [address] [place] [address] 64271 #### FEPR, 2276-4, 2284-8, 2131-9, 26732-2 #### [facility] ([id number]) [address] [facility], [address] [place] [address] MCHC (RBC) [Mass/Vol] 33.0 g/dL Normal 32-36 [facility] Comment on above: Performed By: #### C BCA, CMP, #### [facility] ([id number]) [address] [place] [address] 75976 #### FEPR, 2275-4, 8, 2132-07, 91642-2 #### [facility] ([id number]) [address], [address] [place] [address] MCV (RBC) [Entitic vol] 90 fL Normal 80-100 [facility] Comment on above: Performed By: #### Paula BCA, CMP, #### [facility] ([id number]) [address] [place] [address] 60423 #### FEPR, 2276-02, 2284-06, 2132-07, 09205-1 #### [facility] ([id number]) [address], [address] [place] [address] Monocytes (Bld) [#/Vol] 0.7 10*3/uL Normal 0-0.9 [facility] Comment on above: Performed By: #### Paula BCA, CMP, #### [facility] ([id number]) [address] [place] [address] 86646 #### FEPR, 2275-4, 2284-06, 2132-07, 02526-3 #### [facility] ([id number]) [address], [address] [place] [address] Monocytes/100 WBC (Bld) 4.6 % Normal [facility] Comment on above: Performed By: #### C BCA, CMP, #### [facility] ([id number]) [address] [place] [address] 73872 #### FEPR, 2275-4, 2284-06, 2132-07, 28484-8 #### [facility] ([id number]) [address], [address] [place] [address] Neutrophils/100 WBC (Bld) 91.3 % Normal [facility] Comment on above: Performed By: #### C ERNESTINA, CMP, 52774-1 #### [facility] ([id number]) [address] [place] [address] 30113 #### FEPR, 6-4, 2283-8, 9, 35735-9 #### [facility] ([id number]) [address], [address] [place] [address] Platelet mean volume (Bld) [Entitic vol] 8.4 fL Normal 7-12 [facility] Comment on above: Performed By: #### Paula DO, CMP, #### [facility] ([id number]) [address] [place] [address] 23891 #### FEPR, 2275-4, 8, 2132-07, 77707-8 #### [facility] ([id number]) [address], [address] [place] [address] Platelets (Bld) [#/Vol] 102 10*3/uL Low 150-450 [facility] Comment on above: Performed By: #### Paula DO, CMP, #### [facility] ([id number]) [address] [place] [address] 25384 #### FEPR, 6-4, 8, 2132-07, 19023-7 #### [facility] ([id number]) [address] [place] [address] RBC COUNT 3.07 X10E12/L Low 4.10-5.70 [facility] Comment on above: Performed By: #### Paula BCA, CMP, #### [facility] ([id number]) [address] [place] [address] 52540 #### FEPR, 6-4, 8, 9, 01843-4 #### [facility] ([id number]) [address], [address] [place] [address] WBC (Bld) [#/Vol] 14.2 10*3/uL High 4.0-11.0 [facility] Comment on above: Performed By: #### C BCA, CMP, 20844-6 #### [facility] ([id number]) [address] [place] [address] 12904 #### FEPR, 2275-4, 8, 2132-07, 29290-9 #### [facility] ([id number]) [address], [address] [place] [address] COMPREHENSIVE METABOLIC PANE Anival 02-13-2025 Albumin [Mass/Vol] 2.3 g/dL Low 3.2-5.3 [facility] Comment on above: Performed By: #### C BCA, CMP, #### [facility] ([id number]) [address] [place] [address] 82348 #### FEPR, 2275-4, 2284-06, 2132-07, 17202-1 #### [facility] ([id number]) [address], [address] [place] [address] ALP [Catalytic activity/Vol] 69 U/L Normal 39-130 [facility] Comment on above: Performed By: #### C BCA, CMP, #### [facility] ([id number]) [address] [place] [address] 77331 #### FEPR, 6-4, 2284-06, 2132-07, 42293-5 #### [facility] ([id number]) [address], [address] [place] [address] ALT [Catalytic activity/Vol] 49 U/L High 0-40 [facility] Comment on above: Performed By: #### C BCA, CMP, #### [facility] ([id number]) [address] [place] [address] 67603 #### FEPR, 2276-4, 2284-8, 9, 36118-6 #### [facility] ([id number]) [address], [address] [place] [address] Anion gap [Moles/Vol] 6 mmol/L Normal 5-15 [facility] Comment on above: Performed By: #### C BCA, CMP, #### [facility] ([id number]) [address] [place] [address] 04955 #### FEPR, 6-4, 2283-8, 9, 27644-5 #### [facility] ([id number]) [address] [facility], [address] [place] [address] AST [Catalytic activity/Vol] 50 U/L High 0-41 [facility] Comment on above: Performed By: #### C BCA, CMP, #### [facility] ([id number]) [address] [place] [address] 95672 #### FEPR, 6-4, 4-8, 9, 38474-9 #### [facility] ([id number]) [address] [facility], [address] [place] [address] Bilirubin [Mass/Vol] 0.5 mg/dL Normal 0.3-1.2 [facility] Comment on above: Performed By: #### C BCA, CMP, #### [facility] ([id number]) [address] [place] [address] 79924 #### FEPR, 2276-4, 2284-8, 9, 00028-1 #### [facility] ([id number]) [address], [address] [place] [address] Calcium [Mass/Vol] 8.0 mg/dL Low 8.5-10.5 [facility] Comment on above: Performed By: #### C BCA, CMP, 60574-9 #### [facility] ([id number]) [address] [place] [address] 53792 #### FEPR, 2276-4, 4-8, 2131-9, 28174-1 #### [facility] ([id number]) [address] [facility], [address] [place] [address] Chloride [Moles/Vol] 105 mmol/L Normal 98-109 [facility] Comment on above: Performed By: #### C BCA, CMP, 66385-2 #### [facility] ([id number]) [address] [place] [address] 81698 #### FEPR, 6-4, 4-8, 9, 50709-1 #### [facility] ([id number]) [address] [facility], [address] [place] [address] CO2 [Moles/Vol] 26 mmol/L Normal 22-32 [facility] Comment on above: Performed By: #### C BCA, CMP, 51825-5 #### [facility] ([id number]) [address] [place] [address] 66277 #### FEPR, 6-4, 4-8, 2131-9, 55995-7 #### [facility] ([id number]) [address], [address] [place] [address] Creatinine [Mass/Vol] 1.30 mg/dL High 0.70-1.20 [facility] Comment on above: Result Comment: METH OD TRACEABLE TO IDMS STANDARD Performed By: #### C BCA, CMP, #### [facility] ([id number]) [address] [place] [address] 78247 #### FEPR, 6-4, 2284-06, 2132-07, 29166-8 #### [facility] ([id number]) [address] [place] [address] GFR/1.73 sq M.predicted among non-blacks MDRD (S/P/Bld) [Vol rate/Area] 57 mL/min/{1.73_m2} Low >59 [facility] Comment on above: Result Comment: Reported eGFR is based on the CKD-EPI 2020 equation that does not use a race coefficient. Performed By: #### C JEAN [place], 81010-5 #### [facility] ([id number]) [address] [place] [address] #### ANGELITO, 2275-4, 2284-06, 2132-07, 42646-4 #### [facility] ([id number]) [address], [address] [place] [address] Glucose [Mass/Vol] 144 mg/dL High 65-99 [facility] Comment on above: Performed By: #### C JEAN DO, #### [facility] ([id number]) [address] [place] [address] #### FEPR, 2275-4, 2284-06, 2132-07, 40424-9 #### [facility] ([id number]) [address], [address] [place] [address] Potassium [Moles/Vol] 3.4 mmol/L Low 3.5-5.0 [facility] Comment on above: Performed By: #### C ERNESTINA, CMP, 97402-4 #### [facility] ([id number]) [address] [place] [address] #### FEPR, 2276-4, 2284-06, 9, 91001-4 #### [facility] ([id number]) [address], [address] [place] [address] Protein [Mass/Vol] 6.0 g/dL Normal 6.0-8.0 [facility] Comment on above: Performed By: #### C BCA, CMP, 61922-3 #### [facility] ([id number]) [address] [place] [address] #### FEPR, 6-4, 2283-8, 9, 36138-6 #### [facility] ([id number]) [address], [address] [place] [address] Sodium [Moles/Vol] 137 mmol/L Normal 134-146 [facility] Comment on above: Performed By: #### C BCA, CMP, #### [facility] ([id number]) [address] [place] [address] #### FEPR, 6-4, 8, 2132-07, 37882-8 #### [facility] ([id number]) [address], [address] [place] [address] Urea nitrogen [Mass/Vol] 42 mg/dL High 5-27 [facility] Comment on above: Performed By: #### C BCA, CMP, #### [facility] ([id number]) [address] [place] [address] #### FEPR, 6-4, 2283-8, 9, 56226-9 #### [facility] ([id number]) [address], [address] [place] [address] MAGNESIUMon 02-13-2025 Magnesium [Mass/Vol] 2.1 mg/dL Normal 1.8-2.6 [facility] Comment on above: Performed By: #### C BCA, [facility], 66610-5 #### [facility] ([id number]) [address] [address] [facility] [address] [place] [address] #### FEPR, 2276-4, 2284-8, 2132-9, 65976-6 #### [facility] ([id number]) [address] [place] [address] MR ANKLE LT WO CONTon 2024 MR ANKLE LT WO CONT MR ANKLE LT WO CONT MR LEFT ANKLE CLINICAL INFORMATION: Osteomyelitis, infection [...] Noé Dewitt MD on 02/13/2025 1:05 PM Normal [facility] BLOOD CULTUREon 02-12-2025 Bacteria identified Aer cx Nom (Bld) SPECIMEN NOTES R HAND CULTURE RESULTS NO GROWTH 5 DAYS Normal [facility] Comment on above: Performed By: #### [place], 12669-7 #### [facility] ([id number]) [address] [place] [address] #### FEPR, 2276-4, 2284-8, 2131-9, 76043-6 #### [facility] ([id number]) [address], [address] [place] [id number] Bacteria identified Aer cx Nom (Bld) SPECIMEN NOTES LFA CULTURE RESULTS NO GROWTH 5 DAYS Normal [facility] Comment on above: Performed By: #### [place], [address]-3 #### [facility] ([id number]) [address] [place] [address] 18796 #### ESTEFANIR, 6-4, 2283-8, 2131-9, 88986-3 #### [facility] ([id number]) [address], [address] [place] [address] Lactate (P shantell) [Moles/Vol]o n 02-12-2025 LACTATE W/REFLEX 1.4 mmol/L Normal 0.4-2.0 [facility] Comment on above: Result Comment: Result did not trigger repeat Lactate, re-order if needed. Performed By: #### C ERNESTINA, JEAN, 71124-1 #### [facility] ([id number]) [address] [place] [address] 34440 #### FEPR, 2276-4, 2284-8, 2131-9, 68725-9 #### [facility] ([id number]) [address] [place] [address] MAGNESIUMon 02-12-2025 Magnesium [Mass/Vol] 2.4 mg/dL Normal 1.8-2.6 [facility] Comment on above: Performed By: #### C ERNESTINA, CMP, #### [facility] ([id number]) [address] [place] [address] 85119 #### FEPR, 6-4, 4-8, 9, 28463-5 #### [facility] ([id number]) [address], [address] [place] [address] Magnesium [Mass/Vol] 1.4 mg/dL Low 1.8-2.6 [facility] Comment on above: Performed By: #### C ERNESTINA, [facility], #### [facility] ([id number]) [address] [place] [address] 45071 #### FEPR, 2275-4, 2283-8, 9, 17511-6 #### [facility] ([id number]) [address], [address] [place] [address] PROTIME AND INRon 02-12-2025 INR Coag (PPP) [Relative time] 1.2 {INR} Normal 0.9-1.2 [facility] Comment on above: Performed By: #### C ERNESTINA, [facility], #### [facility] ([id number]) [address] [place] [address] 61018 #### FEPR, 2275-4, 8, 9, 66717-3 #### [facility] ([id number]) [address], [address] [place] [address] PT Coag (PPP) [Time] 13.6 s High 9.8-13.2 [facility] Comment on above: Result Comment: NEW REFERENCE RANGE Performed By: #### Paula DO, CMP, #### [facility] ([id number]) [address] [place] [address] 16738 #### FEPR, 2276-4, 2284-8, 2-9, 01679-0 #### [facility] ([id number]) [address] [place] [address], [address] [place] [address] Procalcitonin IA [Mass/Vol]o n 02-12-2025 PROCALCITONIN 65.59 ng/mL High <0.05 [facility] Comment on above: Result Comment: NOTE <0.50 ng/mL - Low risk of severe sepsis and/or septic shock. <2.00 ng/mL - Recommend retesting within 6-24 hours. >2.00 ng/mL - High risk of sepsis and/or septic shock. Performed By: #### Paula DO CMP, 37746-0 #### [facility] ([id number]) [address] [place] [address] 09833 #### ANGELITO, 6-4, 4-8, 2131-9, 64549-3 #### [facility] ([id number]) [address] [place] [address], [address] [place] [address] PROCALCITONIN 65.78 ng/mL High <0.05 [facility] Comment on above: Result Comment: NOTE <0.50 ng/mL - Low risk of severe sepsis and/or septic shock. <2.00 ng/mL - Recommend retesting within 6-24 hours. >2.00 ng/mL - High risk of sepsis and/or septic shock. Performed By: #### Paula DO CMP, 70955-9 #### [facility] ([id number]) [address] [place] [address] 66407 #### FEPR, 2276-4, 2284-8, 2-9, 95907-2 #### [facility] ([id number]) [address] [place] [address], [address] [place] [address] SUPERFICIAL WOUND CULTUREon 02-12-2025 Bacteria identified Aer cx Nom (Wound) GRAM STAIN 0 WHITE BLOOD CELLS/LPF 0 SQUAMOUS EPITHELIAL CELLS/LPF NO ORGANISMS SEEN CULTURE RESULTS MODERATE PROTEUS MIRABILIS ALONG WITH RARE NORMAL SKIN ARY [ S = SUSCEPTIBLE R = RESISTANT I = INTERMEDIATE S-DO = Susceptible-dose dependent NS = Non-suscceptible NO = No Interpretation ] Organism: PROTEUS MIRABILIS Antibiotic Interpretation BRINA Status AMPICILLIN S <=2 F AMP/SULBACTAM S <=2/1 F CEFAZOLIN (non urinary) I 4 F CEFAZOLIN (urinary) S 4 F CEFTRIAXONE S <=0.25 F CIPROFLOXACIN S <=0.06 F GENTAMICIN S <=1 F LEVOFLOXACIN S <=0.12 F PIPERACIL/TAZOBACTAM S <=4 F Susceptible [facility] Comment on above: Performed By: #### C BCA, [facility], 49026-3 #### [facility] ([id number]) [address] [place] [address], [place] [address] #### FEPR, 2276-4, 2284-8, 2132-9, 05672-9 #### [facility] ([id number]) [address] [place] [address], [address] [place] [address] URINE CULTUREon 02-12-2025 Bacteria identified Cx Nom (U) CULTURE RESULTS >100,000 ORGANISMS/mL PROTEUS MIRABILIS 50,000 to 100,000 ORGANISMS/mL MORGANELLA MORGANII <10,000 ORGANISMS/mL NORMAL URO GENITAL ARY [ S = SUSCEPTIBLE R = RESISTANT I = INTERMEDIATE S-DO = Susceptible-dose dependent NS = Non-suscceptible NO = No Interpretation ] Organism: PROTEUS MIRABILIS Antibiotic Interpretation BRINA Status AMPICILLIN S <=2 F AMP/SULBACTAM S <=2/1 F CEFAZOLIN (non urinary) R 8 F CEFAZOLIN (urinary) S 8 F CEFTRIAXONE S <=0.25 F CIPROFLOXACIN S <=0.06 F GENTAMICIN S <=1 F LEVOFLOXACIN S <=0.12 F NITROFURANTOIN R 128 F PIPERACIL/TAZOBACTAM S <=4 F TRIMETH/SULFAMETHOXAZO LE S <=/ F [ S = SUSCEPTIBLE R = RESISTANT I = INTERMEDIATE S-DO = Susceptible-dose dependent NS = Non-suscceptible NO = No Interpretation ] Organism: MORGANELLA MORGANII Antibiotic Interpretation BRINA Status CEFTRIAXONE S F CEFEPIME S F [ S = SUSCEPTIBLE R = RESISTANT I = INTERMEDIATE S-DO = Susceptible-dose dependent NS = Non-suscceptible NO = No Interpretation ] Organism: MORGANELLA MORGANII Antibiotic Interpretation BRINA Status AMPICILLIN R >=32 F CEFAZOLIN (non urinary) R >=32 F CEFAZOLIN (urinary) R >=32 F CIPROFLOXACIN S <=0.06 F GENTAMICIN S <=1 F LEVOFLOXACIN S <=0.12 F NITROFURANTOIN R 128 F PIPERACIL/TAZOBACTAM S <=4 F TRIMETH/SULFAMETHOXAZO LE S <=1/19 F Susceptible [facility] Comment on above: Performed By: #### C ERNESTINA, JEAN, 89378-0 #### [facility] ([id number]) [address] [place] [address] 26784 #### ANGELITO, 6-4, 2283-8, 9, 53757-1 #### [facility] ([id number]) [address] [place] [address], [address] [place] [address] URN MACROSCOPIC NURon 2024 BILIRUBIN GIOVANI Negative Normal NEG [facility] Comment on above: Performed By: #### Paula DO, CMP, 58659-5 #### [facility] ([id number]) [address] [place] [address] 63679 #### FEPR, 6-4, 2283-8, 9, 39203-8 #### [facility] ([id number]) [address] [place] [address], [address] [place] [address] BLOOD/HGB GIOVANI Trace Abnormal NEG [facility] Comment on above: Performed By: #### Paula DO, CMP, 66686-6 #### [facility] ([id number]) [address] [place] [address] 41701 #### FEPR, 6-4, 4-8, 9, 57589-7 #### [facility] ([id number]) [address] [place] [address], [address] [place] [address] GLUCOSE GIOVANI Negative Normal NEG [facility] Comment on above: Performed By: #### C BCA, CMP, 65895-5 #### [facility] ([id number]) [address] [place] [address] 05631 #### FEPR, 6-4, 2283-8, 2132-07, 87216-5 #### [facility] ([id number]) [address] [place] [address], [address] [place] [address] KETONES GIOVANI Negative Normal NEG [facility] Comment on above: Performed By: #### C BCA, CMP, 49127-1 #### [facility] ([id number]) [address] [place] [address] 51715 #### FEPR, 2275-4, 8, 2132-07, 57474-2 #### [facility] ([id number]) [address] [place] [address], [address] [place] [address] LEUKOCYTE ESTERASE GIOVANI MODERATE Abnormal NEG [facility] Comment on above: Performed By: #### Paula BCA, CMP, 03070-4 #### [facility] ([id number]) [address] [place] [address] 52852 #### FEPR, 6-4, 8, 2132-07, 03420-7 #### [facility] ([id number]) [address] [place] [address], [address] [place] [address] NITRITE GIOVANI Positive Abnormal NEG [facility] Comment on above: Performed By: #### C BCA, CMP, #### [facility] ([id number]) [address] [place] [address] 86211 #### FEPR, 6-4, 2283-8, 2132-07, 16203-1 #### [facility] ([id number]) [address], [address] [place] [address] PH GIOVANI >=9.0 Normal 5.0-8.5 [facility] Comment on above: Performed By: #### C ERNESTINA, CMP, 21318-8 #### [facility] ([id number]) [address] [place] [address] 34586 #### ESTEFANIR, 2275-4, 2284-06, 2132-07, 75707-4 #### [facility] ([id number]) [address] [facility] [facility], [address] [place] [address] PROTEIN GIOVANI >=300 Abnormal NEG [facility] Comment on above: Performed By: #### C ERNESTINA, CMP, #### [facility] ([id number]) [address] [place] [address] 78857 #### ESTEFANIR, 4, 2284-06, 2132-07, 29721-2 #### [facility] ([id number]) [address] [facility] [facility] [address], [address] [place] [address] SPECIFIC GRAVITY GIOVANI 1.010 Normal 1.003-1.035 [facility] Comment on above: Performed By: #### Paula DO, CMP, 87620-1 #### [facility] ([id number]) [address] [place] [address] 29938 #### FEPR, 2275-4, 2284-06, 2132-07, 80632-5 #### [facility] ([id number]) [address] [facility] [facility] [address], [address] [place] [address] UROBILINOGEN GIOVANI 0.2 eu/dL Normal <1.1 [facility] Comment on above: Performed By: #### C BCA, CMP, #### [facility] ([id number]) [address] [place] [address] 26828 #### FEPR, 2276-4, 2284-8, 2-9, 90846-3 #### [facility] ([id number]) [address], [address] [place] [address] aPTT Coag (PPP) [Time]on aPTT Coag (Bld) [Time] 28 s Normal 26-37 [facility] Comment on above: Result Comment: NEW REFERENCE RANGE Performed By: #### C BCA, [facility], 04081-3 #### [facility] ([id number]) [address] [place] [address] 17601 #### FEPR, 2276-4, 2284-8, 2-9, 78825-6 #### [facility] ([id number]) [address], [address] [place] [address] BLOOD CULTUREon 02-11-2025 Bacteria identified Aer cx Nom (Bld) CULTURE RESULTS PROTEUS MIRABILIS FOR SUSCEPTIBILITY, SEE PREVIOUS REPORT. Normal [facility] Comment on above: Performed By: #### C BCA, [facility], 61610-4 #### [facility] ([id number]) [address] [place] [address] 40172 #### FEPR, 2276-4, 2284-8, 2-9, 12802-5 #### [facility] ([id number]) [address] [facility] [facility] [address], [address] [place] [address] Bacteria identified Aer cx Nom (Bld) CULTURE RESULTS PROTEUS MIRABILIS Proteus species detected by PCR. No resistance genes detected by PCR. [ S = SUSCEPTIBLE R = RESISTANT I = INTERMEDIATE S-DO = Susceptible-dose dependent NS = Non-suscceptible NO = No Interpretation ] Organism: PROTEUS MIRABILIS Antibiotic Interpretation BRINA Status AMPICILLIN S <=2 F AMP/SULBACTAM S <=2/1 F CEFAZOLIN (non urinary) I 4 F CEFAZOLIN (urinary) S 4 F CEFTRIAXONE S <=0.25 F CIPROFLOXACIN S <=0.06 F GENTAMICIN S <=1 F LEVOFLOXACIN S <=0.12 F PIPERACIL/TAZOBACTAM S <=4 F Susceptible [facility] Comment on above: Performed By: #### C ERNESTINA, CMP, 42540-0 #### [facility] ([id number]) [address] [place] [address] 44047 #### FEPR, 2276-4, 2284-8, 2132-9, 50757-8 #### [facility] ([id number]) [address] [place] [address], [address] [place] [address] CBC AND AUTO DIFFon 02-12-20 25 ABSOLUTE BASOPHIL 0.0 X10E9/L Normal 0.0-0.2 [facility] Comment on above: Performed By: #### C ERNESTINA, CMP #### [facility] ([id number]) [address] [place] [address] 50180 ABSOLUTE NEUTROPHIL 4.5 X10E9/L Normal 1.5-6.6 [facility] Comment on above: Performed By: #### C ERNESTINA, CMP #### [facility] ([id number]) [address] [place] [address] 05942 Basophils/100 WBC (Bld) 0.0 % Normal [facility] Comment on above: Performed By: #### C ERNESTINA, CMP #### [facility] ([id number]) [address] [place] [address] 36858 Eosinophils (Bld) [#/Vol] 0.1 10*3/uL Normal 0.0-0.4 [facility] Comment on above: Performed By: #### C BCA, CMP #### [facility] ([id number]) [address] [place] [address] 88323 Eosinophils/100 WBC (Bld) 1.2 % Normal [facility] Comment on above: Performed By: #### C BCA, CMP #### [facility] ([id number]) [address] [place] [address] Erythrocyte distribution width (RBC) [Ratio] 14.3 % Normal 11.5-15.0 [facility] Comment on above: Performed By: #### C ERNESTINA, CMP #### [facility] ([id number]) [address] [place] [address] 50696 Hematocrit (Bld) [Volume fraction] 35.8 % Low 39-49 [facility] Comment on above: Performed By: #### C ERNESTINA, CMP #### [facility] ([id number]) [address] [place] [address] 09509 Hemoglobin (Bld) [Mass/Vol] 11.7 g/dL Low 13.0-17.0 [facility] Comment on above: Performed By: #### C ERNESTINA, CMP #### [facility] ([id number]) [address] [place] [address] 44905 Lymphocytes (Bld) [#/Vol] 0.1 10*3/uL Low 1.0-3.5 [facility] Comment on above: Performed By: #### C ERNESTINA, CMP #### [facility] ([id number]) [address] [place] [address] 67731 Lymphocytes/100 WBC (Bld) 1.7 % Normal [facility] Comment on above: Performed By: #### C ERNESTINA, CMP #### [facility] ([id number]) [address] [place] [address] 62607 MCH (RBC) [Entitic mass] 29.6 pg Normal 27-34 [facility] Comment on above: Performed By: #### C BCA, CMP #### [facility] ([id number]) [address] [place] [address] 96026 MCHC (RBC) [Mass/Vol] 32.7 g/dL Normal 32-36 [facility] Comment on above: Performed By: #### C ERNESTINA, CMP #### [facility] ([id number]) [address] [place] [address] 73360 MCV (RBC) [Entitic vol] 91 fL Normal 80-100 [facility] Comment on above: Performed By: #### C BCA, CMP #### [facility] ([id number]) [address] [place] [address] 56551 Monocytes (Bld) [#/Vol] 0.0 10*3/uL Normal 0-0.9 [facility] Comment on above: Performed By: #### C BCA, CMP #### [facility] ([id number]) [address] [place] [address] 77747 Monocytes/100 WBC (Bld) 0.5 % Normal [facility] Comment on above: Performed By: #### C ERNESTINA, CMP #### [facility] ([id number]) [address] [place] [address] 24867 Neutrophils/100 WBC (Bld) 96.6 % Normal [facility] Comment on above: Performed By: #### C ERNESTINA, CMP #### [facility] ([id number]) [address] [place] [address] 88866 Platelet mean volume (Bld) [Entitic vol] 7.0 fL Normal 7-12 [facility] Comment on above: Performed By: #### C ERNESTINA, CMP #### [facility] ([id number]) [address] [place] [address] 58326 Platelets (Bld) [#/Vol] 199 10*3/uL Normal 150-450 [facility] Comment on above: Performed By: #### C BCA, CMP #### [facility] ([id number]) [address] [place] [address] 96180 RBC COUNT 3.95 X10E12/L Low 4.10-5.70 [facility] Comment on above: Performed By: #### C BCA, CMP #### [facility] ([id number]) [address] [place] [address] 23686 WBC (Bld) [#/Vol] 4.6 10*3/uL Normal 4.0-11.0 [facility] Comment on above: Performed By: #### C BCA, CMP #### [facility] ([id number]) [address] [place] [address] [place] [address] COMPREHENSIVE METABOLIC PANE [facility] 02-11-2025 Albumin [Mass/Vol] 3.2 g/dL Normal 3.2-5.3 [facility] Comment on above: Performed By: #### C BCA, CMP #### [facility] ([id number]) [address] [place] [address] 13666 ALP [Catalytic activity/Vol] 75 U/L Normal 39-130 [facility] Comment on above: Performed By: #### C BCA, CMP #### [facility] ([id number]) [address] [place] [address] 16528 ALT [Catalytic activity/Vol] 66 U/L High 0-40 [facility] Comment on above: Performed By: #### C BCA, CMP #### [facility] ([id number]) [address] [place] [address] 61963 Anion gap [Moles/Vol] 12 mmol/L Normal 5-15 [facility] Comment on above: Performed By: #### C BCA, CMP #### [facility] ([id number]) [address] [place] [address] 08204 AST [Catalytic activity/Vol] 77 U/L High 0-41 [facility] Comment on above: Performed By: #### C BCA, CMP #### [facility] ([id number]) [address] [place] [address] 90448 Bilirubin [Mass/Vol] 0.6 mg/dL Normal 0.3-1.2 [facility] Comment on above: Performed By: #### C BCA, CMP #### [facility] ([id number]) [address] [place] [address] 67493 Calcium [Mass/Vol] 8.7 mg/dL Normal 8.5-10.5 [facility] Comment on above: Performed By: #### C BCA, CMP #### [facility] ([id number]) [address] [place] [address] 08538 Chloride [Moles/Vol] 97 mmol/L Low 98-109 [facility] Comment on above: Performed By: #### C BCA, CMP #### [facility] ([id number]) [address] [place] [address] 46844 CO2 [Moles/Vol] 28 mmol/L Normal 22-32 [facility] Comment on above: Performed By: #### C BCA, CMP #### [facility] ([id number]) [address] [place] [address] 50883 Creatinine [Mass/Vol] 1.44 mg/dL High 0.70-1.20 [facility] Comment on above: Result Comment: METH OD TRACEABLE TO IDMS STANDARD Performed By: #### C BCA, CMP #### [facility] ([id number]) [address] [place] [address] 35763 GFR/1.73 sq M.predicted among non-blacks MDRD (S/P/Bld) [Vol rate/Area] 50 mL/min/{1.73_m2} Low >59 [facility] Comment on above: Result Comment: Reported eGFR is based on the CKD-EPI 1 equation that does not use a race coefficient. Performed By: #### C BCA, CMP #### [facility] ([id number]) [address] [place] [address] 49348 Glucose [Mass/Vol] 154 mg/dL High 65-99 [facility] Comment on above: Performed By: #### C BCA, CMP #### [facility] ([id number]) [address] [place] [address] 00319 Potassium [Moles/Vol] 4.1 mmol/L Normal 3.5-5.0 [facility] Comment on above: Performed By: #### C BCA, CMP #### [facility] ([id number]) [address] [place] [address] 50607 Protein [Mass/Vol] 7.3 g/dL Normal 6.0-8.0 [facility] Comment on above: Performed By: #### C BCA, CMP #### [facility] ([id number]) [address] [place] [address] 08556 Sodium [Moles/Vol] 137 mmol/L Normal 134-146 [facility] Comment on above: Performed By: #### C BCA, CMP #### [facility] ([id number]) [address] [place] [address] 34035 Urea nitrogen [Mass/Vol] 28 mg/dL High 5-27 [facility] Comment on above: Performed By: #### C BCA, CMP #### [facility] ([id number]) [address] [place] [address] 46786 Lactate (P shantell) [Moles/Vol]o n 02-11-2025 Lactate [Moles/Vol] 1.3 mmol/L Normal 0.4-2.0 [facility] Comment on above: Performed By: #### C BCA, CMP #### [facility] ([id number]) [address] [place] [address] 94540 LACTATE W/REFLEX 2.6 mmol/L High 0.4-2.0 [facility] Comment on above: Performed By: #### C BCA, CMP #### [facility] ([id number]) [address] [place] [address] 15357 Procalcitonin [place] [Mass/Vol]o n 02-11-2025 PROCALCITONIN 0.90 ng/mL High <0.05 [facility] Comment on above: Result Comment: NOTE <0.50 ng/mL - Low risk of severe sepsis and/or septic shock. <2.00 ng/mL - Recommend retesting within 6-24 hours. >2.00 ng/mL - High risk of sepsis and/or septic shock. Performed By: #### C BCA, CMP #### [facility] ([id number]) [address] [place] [address] 77475 XR CHEST 1 VWon 02-11-2025 XR CHEST 1 VW XR CHEST 1 VW CLINICAL INFORMATION: Sepsis COMPARISON: Chest radiograph dated [...] Ronda Calvillo MD on 02/11/2025 8:20 PM Normal [facility] XR TIBIA FIBULA RT MIN 2 VWS on 02-11-2025 XR TIBIA FIBULA RT MIN 2 VWS XR TIBIA FIBULA RT MIN 2 VWS Exam: 2 views of the right lower leg dated 02/11/2025. HISTORY: Right lower leg amputated 2 weeks ago. Clinical concern for osteomyelitis. COMPARISON: None. IMPRESSION: No radiographic evidence for osteomyelitis in the stump of the right tibia and right fibula. Generalized osteopenia. No soft tissue gas. Finalized by Ronda Calvillo MD on 02/11/2025 8:29 PM Normal [facility] CBC AND AUTO DIFFon 02-02-20 25 ABSOLUTE BASOPHIL 0.0 X10E9/L Normal 0.0-0.2 [facility] Comment on above: Performed By: #### C BCA, CMP #### [facility] ([id number]) [address] [place] [address] [id number] ABSOLUTE NEUTROPHIL 2.9 X10E9/L Normal 1.5-6.6 [facility] Comment on above: Performed By: #### C ERNESTINA, CMP #### [facility] ([id number]) [address] [place] [address] 01371 Basophils/100 WBC (Bld) 0.9 % Normal [facility] Comment on above: Performed By: #### C ERNESTINA, CMP #### [facility] ([id number]) [address] [place] [address] 08301 Eosinophils (Bld) [#/Vol] 0.2 10*3/uL Normal 0.0-0.4 [facility] Comment on above: Performed By: #### C ERNESTINA, CMP #### [facility] ([id number]) [address] [place] [address] 94886 Eosinophils/100 WBC (Bld) 4.6 % Normal [facility] Comment on above: Performed By: #### C ERNESTINA, CMP #### [facility] ([id number]) [address] [place] [address] 01744 Erythrocyte distribution width (RBC) [Ratio] 14.1 % Normal 11.5-15.0 [facility] Comment on above: Performed By: #### C ERNESTINA, CMP #### [facility] ([id number]) [address] [place] [address] 16632 Hematocrit (Bld) [Volume fraction] 27.1 % Low 39-49 [facility] Comment on above: Performed By: #### C ERNESTINA, CMP #### [facility] ([id number]) [address] [place] [address] 01410 Hemoglobin (Bld) [Mass/Vol] 9.0 g/dL Low 13.0-17.0 [facility] Comment on above: Performed By: #### C BCA, CMP #### [facility] ([id number]) [address] [place] [address] 71539 Lymphocytes (Bld) [#/Vol] 0.5 10*3/uL Low 1.0-3.5 [facility] Comment on above: Performed By: #### C ERNESTINA, CMP #### [facility] ([id number]) [address] [place] [address] 79651 Lymphocytes/100 WBC (Bld) 12.7 % Normal [facility] Comment on above: Performed By: #### C ERNESTINA, CMP #### [facility] ([id number]) [address] [place] [address] 00773 MCH (RBC) [Entitic mass] 30.5 pg Normal 27-34 [facility] Comment on above: Performed By: #### C ERNESTINA, CMP #### [facility] ([id number]) [address] [place] [address] 10277 MCHC (RBC) [Mass/Vol] 33.4 g/dL Normal 32-36 [facility] Comment on above: Performed By: #### C ERNESTINA, CMP #### [facility] ([id number]) [address] [place] [address] 69907 MCV (RBC) [Entitic vol] 91 fL Normal 80-100 [facility] Comment on above: Performed By: #### C ERNESTINA, CMP #### [facility] ([id number]) [address] [place] [address] 32949 Monocytes (Bld) [#/Vol] 0.6 10*3/uL Normal 0-0.9 [facility] Comment on above: Performed By: #### C BCA, CMP #### [facility] ([id number]) [address] [place] [address] 06432 Monocytes/100 WBC (Bld) 14.4 % Normal [facility] Comment on above: Performed By: #### C ERNESTINA, CMP #### [facility] ([id number]) [address] [place] [address] 46444 Neutrophils/100 WBC (Bld) 67.4 % Normal [facility] Comment on above: Performed By: #### C ERNESTINA, CMP #### [facility] ([id number]) [address] [place] [address] 11469 Platelet mean volume (Bld) [Entitic vol] 7.5 fL Normal 7-12 [facility] Comment on above: Performed By: #### C ERNESTINA, CMP #### [facility] ([id number]) [address] [place] [address] 62368 Platelets (Bld) [#/Vol] 216 10*3/uL Normal 150-450 [facility] Comment on above: Performed By: #### C ERNESTINA, CMP #### [facility] ([id number]) [address] [place] [address] 77865 RBC COUNT 2.97 X10E12/L Low 4.10-5.70 [facility] Comment on above: Performed By: #### C ERNESTINA, CMP #### [facility] ([id number]) [address] [place] [address] 32904 WBC (Bld) [#/Vol] 4.2 10*3/uL Normal 4.0-11.0 [facility] Comment on above: Performed By: #### C ERNESTINA, CMP #### [facility] ([id number]) [address] [place] [address] 62825 COMPREHENSIVE METABOLIC PANE Anival 02-01-2025 Albumin [Mass/Vol] 2.6 g/dL Low 3.2-5.3 [facility] Comment on above: Performed By: #### C ERNESTINA, CMP #### [facility] ([id number]) [address] [place] [address] 10373 ALP [Catalytic activity/Vol] 47 U/L Normal 39-130 [facility] Comment on above: Performed By: #### C BCA, CMP #### [facility] ([id number]) [address] [place] [address] 68279 ALT [Catalytic activity/Vol] 27 U/L Normal 0-40 [facility] Comment on above: Performed By: #### C BCA, CMP #### [facility] ([id number]) [address] [place] [address] 81123 Anion gap [Moles/Vol] 7 mmol/L Normal 5-15 [facility] Comment on above: Performed By: #### C BCA, CMP #### [facility] ([id number]) [address] [place] [address] 65073 AST [Catalytic activity/Vol] 28 U/L Normal 0-41 [facility] Comment on above: Performed By: #### C BCA, CMP #### [facility] ([id number]) [address] [place] [address] 04510 Bilirubin [Mass/Vol] 0.4 mg/dL Normal 0.3-1.2 [facility] Comment on above: Performed By: #### C BCA, CMP #### [facility] ([id number]) [address] [place] [address] 77987 Calcium [Mass/Vol] 8.1 mg/dL Low 8.5-10.5 [facility] Comment on above: Performed By: #### C BCA, CMP #### [facility] ([id number]) [address] [place] [address] 45922 Chloride [Moles/Vol] 98 mmol/L Normal 98-109 [facility] Comment on above: Performed By: #### C BCA, CMP #### [facility] ([id number]) [address] [place] [address] 71667 CO2 [Moles/Vol] 35 mmol/L High 22-32 [facility] Comment on above: Performed By: #### C BCA, CMP #### [facility] ([id number]) [address] [place] [address] 17728 Creatinine [Mass/Vol] 0.62 mg/dL Low 0.70-1.20 [facility] Comment on above: Result Comment: METH OD TRACEABLE TO IDMS STANDARD Performed By: #### C BCA, CMP #### [facility] ([id number]) [address] [place] [address] 86271 eGFR (CKD-EPI) NON-RACE DEPENDENT >90 Normal >59 [facility] Comment on above: Result Comment: Reported eGFR is based on the CKD-EPI 2020 equation that does not use a race coefficient. Performed By: #### C BCA, CMP #### [facility] ([id number]) [address] [place] [address] 19236 Glucose [Mass/Vol] 107 mg/dL High 65-99 [facility] Comment on above: Performed By: #### C BCA, CMP #### [facility] ([id number]) [address] [place] [address] 96950 Potassium [Moles/Vol] 3.6 mmol/L Normal 3.5-5.0 [facility] Comment on above: Performed By: #### C BCA, CMP #### [facility] ([id number]) [address] [place] [address] 86415 Protein [Mass/Vol] 6.4 g/dL Normal 6.0-8.0 [facility] Comment on above: Performed By: #### C BCA, CMP #### [facility] ([id number]) [address] [place] [address] 02963 Sodium [Moles/Vol] 140 mmol/L Normal 134-146 [facility] Comment on above: Performed By: #### C BCA, CMP #### [facility] ([id number]) [address] [place] [address] 22863 Urea nitrogen [Mass/Vol] 15 mg/dL Normal 5-27 [facility] Comment on above: Performed By: #### C BCA, CMP #### [facility] ([id number]) [address] [place] [address] 28000 MAGNESIUMon 02-01-2025 Magnesium [Mass/Vol] 1.8 mg/dL Normal 1.8-2.6 [facility] Comment on above: Performed By: #### C BCA, CMP #### [facility] ([id number]) [address] [place] [address] 35854 CBC AND AUTO DIFFon 02-01-20 25 ABSOLUTE BASOPHIL 0.0 X10E9/L Normal 0.0-0.2 [facility] Comment on above: Performed By: #### C BCA, CMP, 04464-7 #### [facility] ([id number]) [address] [place] [address] 30035 #### FEPR, 2276-4, 2284-8, 2-9, 45559-7 #### [facility] ([id number]) [address] [place] [address], [address] [place] [address] ABSOLUTE NEUTROPHIL 2.8 X10E9/L Normal 1.5-6.6 [facility] Comment on above: Performed By: #### C BCA, CMP, 38360-3 #### [facility] ([id number]) [address] [place] [address] 29179 #### FEPR, 2276-4, 2284-8, 2132-9, 46461-4 #### [facility] ([id number]) [address], [address] [place] [address] Basophils/100 WBC (Bld) 0.8 % Normal [facility] Comment on above: Performed By: #### C ERNESTINA, CMP, 34720-1 #### [facility] ([id number]) [address] [place] [address] 63143 #### FEPR, 6-4, 4-8, 9, 32494-1 #### [facility] ([id number]) [address], [address] [place] [address] Eosinophils (Bld) [#/Vol] 0.2 10*3/uL Normal 0.0-0.4 [facility] Comment on above: Performed By: #### Paula DO, CMP, #### [facility] ([id number]) [address] [place] [address] 59733 #### FEPR, 6-4, 8, 2132-07, 07876-6 #### [facility] ([id number]) [address], [address] [place] [address] Eosinophils/100 WBC (Bld) 4.5 % Normal [facility] Comment on above: Performed By: #### Paula DO, CMP, #### [facility] ([id number]) [address] [place] [address] 27009 #### FEPR, 6-4, 2283-8, 2132-07, 26290-1 #### [facility] ([id number]) [address], [address] [place] [address] Erythrocyte distribution width (RBC) [Ratio] 13.8 % Normal 11.5-15.0 [facility] Comment on above: Performed By: #### Paula BCA, CMP, #### [facility] ([id number]) [address] [place] [address] 17572 #### FEPR, 6-4, 2283-8, 9, 27556-9 #### [facility] ([id number]) [address], [address] [place] [address] Hematocrit (Bld) [Volume fraction] 26.6 % Low 39-49 [facility] Comment on above: Performed By: #### Paula DO, CMP, #### [facility] ([id number]) [address] [place] [address] 99424 #### FEPR, 6-4, 8, 2132-07, 98953-4 #### [facility] ([id number]) [address], [address] [place] [address] Hemoglobin (Bld) [Mass/Vol] 8.9 g/dL Low 13.0-17.0 [facility] Comment on above: Performed By: #### Paula BCA, CMP, #### [facility] ([id number]) [address] [place] [address] 30825 #### FEPR, 2275-4, 8, 2132-07, 06463-7 #### [facility] ([id number]) [address], [address] [place] [address] Lymphocytes (Bld) [#/Vol] 0.5 10*3/uL Low 1.0-3.5 [facility] Comment on above: Performed By: #### C BCA, CMP, #### [facility] ([id number]) [address] [place] [address] 41515 #### FEPR, 6-4, 2283-8, 2132-07, 43490-3 #### [facility] ([id number]) [address], [address] [place] [address] Lymphocytes/100 WBC (Bld) 12.5 % Normal [facility] Comment on above: Performed By: #### C BCA, CMP, #### [facility] ([id number]) [address] [place] [address] 83932 #### FEPR, 6-4, 2283-8, 9, 32835-8 #### [facility] ([id number]) [address], [address] [place] [address] MCH (RBC) [Entitic mass] 30.5 pg Normal 27-34 [facility] Comment on above: Performed By: #### C BCA, CMP, #### [facility] ([id number]) [address] [place] [address] 86897 #### FEPR, 2275-4, 8, 2132-07, 99746-5 #### [facility] ([id number]) [address], [address] [place] [address] MCHC (RBC) [Mass/Vol] 33.6 g/dL Normal 32-36 [facility] Comment on above: Performed By: #### Paula BCA, CMP, #### [facility] ([id number]) [address] [place] [address] 92184 #### FEPR, 2275-4, 8, 2132-07, 45590-2 #### [facility] ([id number]) [address], [address] [place] [address] MCV (RBC) [Entitic vol] 91 fL Normal 80-100 [facility] Comment on above: Performed By: #### Paula BCA, CMP, #### [facility] ([id number]) [address] [place] [address] 30397 #### FEPR, 6-4, 8, 2132-07, 62728-4 #### [facility] ([id number]) [address], [address] [place] [address] Monocytes (Bld) [#/Vol] 0.6 10*3/uL Normal 0-0.9 [facility] Comment on above: Performed By: #### C BCA, CMP, #### [facility] ([id number]) [address] [place] [address] 09357 #### FEPR, 2276-4, 4-8, 9, 76028-5 #### [facility] ([id number]) [address], [address] [place] [address] Monocytes/100 WBC (Bld) 14.1 % Normal [facility] Comment on above: Performed By: #### C BCA, CMP, #### [facility] ([id number]) [address] [place] [address] 15641 #### FEPR, 6-4, 2283-8, 2132-07, 68307-5 #### [facility] ([id number]) [address], [address] [place] [address] Neutrophils/100 WBC (Bld) 68.1 % Normal [facility] Comment on above: Performed By: #### C BCA, CMP, #### [facility] ([id number]) [address] [place] [address] 64640 #### FEPR, 6-4, 4-8, 9, 99592-1 #### [facility] ([id number]) [address], [address] [place] [address] Platelet mean volume (Bld) [Entitic vol] 7.7 fL Normal 7-12 [facility] Comment on above: Performed By: #### C BCA, CMP, #### [facility] ([id number]) [address] [place] [address] 35902 #### FEPR, 2276-4, 2284-8, 2131-9, 68164-8 #### [facility] ([id number]) [address], [address] [place] [address] Platelets (Bld) [#/Vol] 196 10*3/uL Normal 150-450 [facility] Comment on above: Performed By: #### C BCA, CMP, 98052-4 #### [facility] ([id number]) [address] [place] [address] 58926 #### FEPR, 2276-4, 4-8, 2131-9, 56531-7 #### [facility] ([id number]) [address], [address] [place] [address] RBC COUNT 2.93 X10E12/L Low 4.10-5.70 [facility] Comment on above: Performed By: #### C BCA, CMP, 96908-0 #### [facility] ([id number]) [address] [place] [address] 61876 #### FEPR, 2276-4, 2284-8, 2131-9, 24448-6 #### [facility] ([id number]) [address], [address] [place] [address] WBC (Bld) [#/Vol] 4.1 10*3/uL Normal 4.0-11.0 [facility] Comment on above: Performed By: #### C BCA, CMP, #### [facility] ([id number]) [address] [place] [address] 95033 #### FEPR, 2276-4, 2284-8, 2131-9, 44845-4 #### [facility] ([id number]) [address], [address] [place] [address] COMPREHENSIVE METABOLIC PANE Anival 01-31-2025 Albumin [Mass/Vol] 2.7 g/dL Low 3.2-5.3 [facility] Comment on above: Performed By: #### C BCA, CMP, 72397-2 #### [facility] ([id number]) [address] [place] [address] 54472 #### FEPR, 2276-4, 4-8, 9, 32907-0 #### [facility] ([id number]) [address], [address] [place] [address] ALP [Catalytic activity/Vol] 49 U/L Normal 39-130 [facility] Comment on above: Performed By: #### C BCA, CMP, 39453-7 #### [facility] ([id number]) [address] [place] [address] 51219 #### FEPR, 2276-4, 4-8, 2131-9, 79318-1 #### [facility] ([id number]) [address], [address] [place] [address] ALT [Catalytic activity/Vol] 26 U/L Normal 0-40 [facility] Comment on above: Performed By: #### C BCA, CMP, 07457-8 #### [facility] ([id number]) [address] [place] [address] 87773 #### FEPR, 2276-4, 4-8, 2131-9, 67208-3 #### [facility] ([id number]) [address], [address] [place] [address] Anion gap [Moles/Vol] 7 mmol/L Normal 5-15 [facility] Comment on above: Performed By: #### C BCA, CMP, 06593-4 #### [facility] ([id number]) [address] [place] [address] [place] [address] #### FEPR, 6-4, 8, 9, 70376-3 #### [facility] ([id number]) [address], [address] [place] [address] AST [Catalytic activity/Vol] 28 U/L Normal 0-41 [facility] Comment on above: Performed By: #### C BCA, CMP, #### [facility] ([id number]) [address] [place] [address] 33252 #### FEPR, 6-4, 8, 2132-07, 40347-2 #### [facility] ([id number]) [address], [address] [place] [address] Bilirubin [Mass/Vol] 0.7 mg/dL Normal 0.3-1.2 [facility] Comment on above: Performed By: #### C BCA, CMP, #### [facility] ([id number]) [address] [place] [address] 13284 #### FEPR, 2275-4, 2284-06, 2132-07, 42121-2 #### [facility] ([id number]) [address], [address] [place] [address] Calcium [Mass/Vol] 8.4 mg/dL Low 8.5-10.5 [facility] Comment on above: Performed By: #### C BCA, CMP, #### [facility] ([id number]) [address] [place] [address] 12883 #### FEPR, 6-4, 8, 2132-07, 05355-4 #### [facility] ([id number]) [address], [address] [place] [address] Chloride [Moles/Vol] 98 mmol/L Normal 98-109 [facility] Comment on above: Performed By: #### C BCA, CMP, 62085-6 #### [facility] ([id number]) [address] [place] [address] 58526 #### FEPR, 2276-4, 2284-8, 2132-9, 74501-0 #### [facility] ([id number]) [address], [address] [place] [address] CO2 [Moles/Vol] 34 mmol/L High 22-32 [facility] Comment on above: Performed By: #### C BCA, CMP, #### [facility] ([id number]) [address] [place] [address] 22394 #### FEPR, 6-4, 2284-8, 2-9, 97326-5 #### [facility] ([id number]) [address], [address] [place] [address] Creatinine [Mass/Vol] 0.68 mg/dL Low 0.70-1.20 [facility] Comment on above: Result Comment: METH OD TRACEABLE TO IDMS STANDARD Performed By: #### C ERNESTINA, CMP, #### [facility] ([id number]) [address] [place] [address] 83741 #### FEPR, 2276-4, 2284-8, 2-9, 53088-6 #### [facility] ([id number]) [address], [address] [place] [address] eGFR (CKD-EPI) NON-RACE DEPENDENT >90 Normal >59 [facility] Comment on above: Result Comment: Reported eGFR is based on the CKD-EPI 2020 equation that does not use a race coefficient. Performed By: #### C BCA, CMP, #### [facility] ([id number]) [address] [place] [address] 11866 #### FEPR, 6-4, 2283-8, 9, 54207-2 #### [facility] ([id number]) [address], [address] [place] [address] Glucose [Mass/Vol] 105 mg/dL High 65-99 [facility] Comment on above: Performed By: #### C BCA, CMP, #### [facility] ([id number]) [address] [place] [address] 35074 #### FEPR, 6-4, 8, 2132-07, 78212-6 #### [facility] ([id number]) [address], [address] [place] [address] Potassium [Moles/Vol] 3.5 mmol/L Normal 3.5-5.0 [facility] Comment on above: Performed By: #### C BCA, CMP, #### [facility] ([id number]) [address] [place] [address] 33746 #### FEPR, 6-4, 8, 2132-07, 76353-1 #### [facility] ([id number]) [address], [address] [place] [address] Protein [Mass/Vol] 6.6 g/dL Normal 6.0-8.0 [facility] Comment on above: Performed By: #### C BCA, CMP, #### [facility] ([id number]) [address] [place] [address] 76654 #### FEPR, 6-4, 8, 2132-07, 67686-0 #### [facility] ([id number]) [address], [address] [place] [address] Sodium [Moles/Vol] 139 mmol/L Normal 134-146 [facility] Comment on above: Performed By: #### C BCA, CMP, #### [facility] ([id number]) [address] [place] [address] 00439 #### FEPR, 2276-4, 2284-8, 2131-9, 61531-1 #### [facility] ([id number]) [address], [address] [place] [address] Urea nitrogen [Mass/Vol] 19 mg/dL Normal 5-27 [facility] Comment on above: Performed By: #### C BCA, CMP, #### [facility] ([id number]) [address] [place] [address] 02591 #### FEPR, 6-4, 2283-8, 9, 74211-2 #### [facility] ([id number]) [address], [address] [place] [address] FERRITINon 01-31-2025 Ferritin [Mass/Vol] 198 ng/mL Normal 24-336 [facility] Comment on above: Performed By: #### C BCA, CMP, #### [facility] ([id number]) [address] [place] [address] 76931 #### FEPR, 6-4, 2283-8, 9, 73360-3 #### [facility] ([id number]) [address], [address] [place] [address] Folate [Mass/Vol]on 02-01-20 25 FOLIC ACID >25.0 Normal >5.8 [facility] Comment on above: Result Comment: NEW REFERENCE RANGE Performed By: #### C BCA, CMP, #### [facility] ([id number]) [address] [place] [address] 10472 #### FEPR, 2276-4, 2284-8, 9, 33019-5 #### [facility] ([id number]) [address], [address] [place] [address] IRON PROFILEon 01-31-2025 Iron [Mass/Vol] 20 ug/dL Low 50-212 [facility] Comment on above: Performed By: #### C BCA, CMP, 12711-6 #### [facility] ([id number]) [address] [place] [address] 16552 #### FEPR, 2276-4, 2284-8, 9, 36631-7 #### [facility] ([id number]) [address], [address] [place] [address] IRON BINDING 235 ug/dL Low 250-425 [facility] Comment on above: Performed By: #### Paula BCA, CMP, #### [facility] ([id number]) [address] [place] [address] 32572 #### FEPR, 2276-4, 4-8, 9, 46312-8 #### [facility] ([id number]) [address], [address] [place] [address] IRON SATURATION 9 % SATURATION Low 20-50 [facility] Comment on above: Performed By: #### C BCA, CMP, #### [facility] ([id number]) [address] [place] [address] 61566 #### FEPR, 2276-4, 2284-8, 9, 81429-7 #### [facility] ([id number]) [address], [address] [place] [address] MAGNESIUMon 01-31-2025 Magnesium [Mass/Vol] 1.9 mg/dL Normal 1.8-2.6 [facility] Comment on above: Performed By: #### C BCA, CMP, #### [facility] ([id number]) [address] [place] [address] 63621 #### FEPR, 6-4, 2283-8, 9, 49076-0 #### [facility] ([id number]) [address], [address] [place] [address] VITAMIN B12on 01-31-2025 Cobalamin (Vitamin B12) [Mass/Vol] 943 pg/mL High 180-914 [facility] Comment on above: Performed By: #### C ERNESTINA, [facility], 02842-4 #### [facility] ([id number]) [address] [place] [address] #### FEPR, 2275-4, 2283-8, 9, 11728-4 #### [facility] ([id number]) [address] [place] [address], [address] [address] Vitamin D+Metabolites [Mass/ Vol]on 01-31-2025 VITAMIN D 25 HYD TOT 27.3 ng/mL Low 30-100 [facility] Comment on above: Result Comment: Vitamin D status 25 [place] Vitamin D Deficiency <20 ng/mL Insufficiency 20-29 ng/mL Sufficiency 30-100 ng/mL Toxicity >100 ng/mL NOTE: A pediatric reference range has not been established by the splitter head of this kit. The [place] [employer] recommends a Vitamin D level of = or >20ng/mL in infants and children. Performed By: #### C ERNESTINA, CMP, 12534-2 #### [facility] ([id number]) [address] [place] [address] #### FEPR, 6-4, 4-8, 9, 16982-9 #### [facility] ([id number]) [address] [place] [address], [address] [place] [address] CBC AND AUTO DIFFon 01-31-20 25 ABSOLUTE BASOPHIL 0.0 X10E9/L Normal 0.0-0.2 [facility] Comment on above: Performed By: #### C ERNESTINA, CMP #### [facility] ([id number]) [address] [place] [address] ABSOLUTE NEUTROPHIL 4.8 X10E9/L Normal 1.5-6.6 [facility] Comment on above: Performed By: #### C ERNESTINA, CMP #### [facility] ([id number]) [address] [place] [address] Basophils/100 WBC (Bld) 0.4 % Normal [facility] Comment on above: Performed By: #### C ERNESTINA, CMP #### [facility] ([id number]) [address] [place] [address] Eosinophils (Bld) [#/Vol] 0.1 10*3/uL Normal 0.0-0.4 [facility] Comment on above: Performed By: #### C ERNESTINA, CMP #### [facility] ([id number]) [address] [place] [address] Eosinophils/100 WBC (Bld) 2.3 % Normal [facility] Comment on above: Performed By: #### C ERNESTINA, CMP #### [facility] ([id number]) [address] [place] [address] Erythrocyte distribution width (RBC) [Ratio] 13.6 % Normal 11.5-15.0 [facility] Comment on above: Performed By: #### C ERNESTINA, CMP #### [facility] ([id number]) [address] [place] [address] Hematocrit (Bld) [Volume fraction] 29.7 % Low 39-49 [facility] Comment on above: Performed By: #### C ERNESTINA, CMP #### [facility] ([id number]) [address] [place] [address] Hemoglobin (Bld) [Mass/Vol] 9.9 g/dL Low 13.0-17.0 [facility] Comment on above: Performed By: #### C BCA, CMP #### [facility] ([id number]) [address] [place] [address] 61524 Lymphocytes (Bld) [#/Vol] 0.5 10*3/uL Low 1.0-3.5 [facility] Comment on above: Performed By: #### C ERNESTINA, CMP #### [facility] ([id number]) [address] [place] [address] 86968 Lymphocytes/100 WBC (Bld) 8.3 % Normal [facility] Comment on above: Performed By: #### C ERNESTINA, CMP #### [facility] ([id number]) [address] [place] [address] 17647 MCH (RBC) [Entitic mass] 30.0 pg Normal 27-34 [facility] Comment on above: Performed By: #### C ERNESTINA, CMP #### [facility] ([id number]) [address] [place] [address] 92437 MCHC (RBC) [Mass/Vol] 33.3 g/dL Normal 32-36 [facility] Comment on above: Performed By: #### C BCA, CMP #### [facility] ([id number]) [address] [place] [address] 47348 MCV (RBC) [Entitic vol] 90 fL Normal 80-100 [facility] Comment on above: Performed By: #### C BCA, CMP #### [facility] ([id number]) [address] [place] [address] 53037 Monocytes (Bld) [#/Vol] 0.7 10*3/uL Normal 0-0.9 [facility] Comment on above: Performed By: #### C BCA, CMP #### [facility] ([id number]) [address] [place] [address] 28236 Monocytes/100 WBC (Bld) 11.3 % Normal [facility] Comment on above: Performed By: #### C BCA, CMP #### [facility] ([id number]) [address] [place] [address] 05858 Neutrophils/100 WBC (Bld) 77.7 % Normal [facility] Comment on above: Performed By: #### C BCA, CMP #### [facility] ([id number]) [address] [place] [address] 81922 Platelet mean volume (Bld) [Entitic vol] 7.1 fL Normal 7-12 [facility] Comment on above: Performed By: #### C BCA, CMP #### [facility] ([id number]) [address] [place] [address] 32240 Platelets (Bld) [#/Vol] 196 10*3/uL Normal 150-450 [facility] Comment on above: Performed By: #### C BCA, CMP #### [facility] ([id number]) [address] [place] [address] 24106 RBC COUNT 3.31 X10E12/L Low 4.10-5.70 [facility] Comment on above: Performed By: #### C BCA, CMP #### [facility] ([id number]) [address] [place] [address] 44497 WBC (Bld) [#/Vol] 6.2 10*3/uL Normal 4.0-11.0 [facility] Comment on above: Performed By: #### C BCA, CMP #### [facility] ([id number]) [address] [place] [address] [place] [address] COMPREHENSIVE METABOLIC PANE Anival 01-30-2025 Albumin [Mass/Vol] 3.1 g/dL Low 3.2-5.3 [facility] Comment on above: Performed By: #### C BCA, CMP #### [facility] ([id number]) [address] [place] [address] 06561 ALP [Catalytic activity/Vol] 53 U/L Normal 39-130 [facility] Comment on above: Performed By: #### C BCA, CMP #### [facility] ([id number]) [address] [place] [address] 50414 ALT [Catalytic activity/Vol] 25 U/L Normal 0-40 [facility] Comment on above: Performed By: #### C BCA, CMP #### [facility] ([id number]) [address] [place] [address] 72274 Anion gap [Moles/Vol] 8 mmol/L Normal 5-15 [facility] Comment on above: Performed By: #### C BCA, CMP #### [facility] ([id number]) [address] [place] [address] 06541 AST [Catalytic activity/Vol] 29 U/L Normal 0-41 [facility] Comment on above: Performed By: #### C BCA, CMP #### [facility] ([id number]) [address] [place] [address] 78270 Bilirubin [Mass/Vol] 0.5 mg/dL Normal 0.3-1.2 [facility] Comment on above: Performed By: #### C BCA, CMP #### [facility] ([id number]) [address] [place] [address] 65480 Calcium [Mass/Vol] 8.7 mg/dL Normal 8.5-10.5 [facility] Comment on above: Performed By: #### C BCA, CMP #### [facility] ([id number]) [address] [place] [address] 48302 Chloride [Moles/Vol] 98 mmol/L Normal 98-109 [facility] Comment on above: Performed By: #### C ERNESTINA, CMP #### [facility] ([id number]) [address] [place] [address] 22599 CO2 [Moles/Vol] 32 mmol/L Normal 22-32 [facility] Comment on above: Performed By: #### C ERNESTINA, CMP #### [facility] ([id number]) [address] [place] [address] 63065 Creatinine [Mass/Vol] 0.67 mg/dL Low 0.70-1.20 [facility] Comment on above: Result Comment: METH OD TRACEABLE TO IDMS STANDARD Performed By: #### C ERNESTINA, CMP #### [facility] ([id number]) [address] [place] [address] [place] [address] eGFR (CKD-EPI) NON-RACE DEPENDENT >90 Normal >59 [facility] Comment on above: Result Comment: Reported eGFR is based on the CKD-EPI 2020 equation that does not use a race coefficient. Performed By: #### C ERNESTINA, CMP #### [facility] ([id number]) [address] [place] [address] 39232 Glucose [Mass/Vol] 114 mg/dL High 65-99 [facility] Comment on above: Performed By: #### C ERNESTINA, CMP #### [facility] ([id number]) [address] [place] [address] 44835 Potassium [Moles/Vol] 3.8 mmol/L Normal 3.5-5.0 [facility] Comment on above: Performed By: #### C BCA, CMP #### [facility] ([id number]) [address] [place] [address] 37381 Protein [Mass/Vol] 7.2 g/dL Normal 6.0-8.0 [facility] Comment on above: Performed By: #### C BCA, CMP #### [facility] ([id number]) [address] [place] [address] 37268 Sodium [Moles/Vol] 138 mmol/L Normal 134-146 [facility] Comment on above: Performed By: #### C BCA, CMP #### [facility] ([id number]) [address] [place] [address] 25068 Urea nitrogen [Mass/Vol] 25 mg/dL Normal 5-27 [facility] Comment on above: Performed By: #### C BCA, CMP #### [facility] ([id number]) [address] [place] [address] 95772 BASIC METABOLIC PANLon 01-26 Anion gap [Moles/Vol] 7 mmol/L Normal 5-15 [facility] Comment on above: Performed By: #### P INR, BMP, , CBC #### [facility] ([id number]) [address] [place] [address] Calcium [Mass/Vol] 8.2 mg/dL Low 8.5-10.5 [facility] Comment on above: Performed By: #### P INR, BMP, , CBC #### [facility] ([id number]) [address], [address] [place] [address] Chloride [Moles/Vol] 102 mmol/L Normal 98-109 [facility] Comment on above: Performed By: #### P INR, BMP, , CBC #### [facility] ([id number]) [address], [address] [place] [address] CO2 [Moles/Vol] 32 mmol/L Normal 22-32 [facility] Comment on above: Performed By: #### P INR, BMP, , CBC #### [facility] ([id number]) [address], [address] [place] [address] Creatinine [Mass/Vol] 0.65 mg/dL Normal 0.60-1.30 [facility] Comment on above: Result Comment: METH OD TRACEABLE TO IDMS STANDARD Performed By: #### P INR, BMP, , CBC #### [facility] ([id number]) [address], [address] [place] [address] eGFR (CKD-EPI) NON-RACE DEPENDENT >90 Normal >59 [facility] Comment on above: Result Comment: Reported eGFR is based on the CKD-EPI 2020 equation that does not use a race coefficient. Performed By: #### P INR, BMP, , CBC #### [facility] ([id number]) [address], [address] [place] [address] Glucose [Mass/Vol] 139 mg/dL High 65-99 [facility] Comment on above: Performed By: #### P INR, BMP, , CBC #### [facility] ([id number]) [address], [address] [place] [address] Potassium [Moles/Vol] 4.0 mmol/L Normal 3.5-5.0 [facility] Comment on above: Performed By: #### P INR, BMP, , CBC #### [facility] ([id number]) [address], [address] [place] [address] Sodium [Moles/Vol] 141 mmol/L Normal 134-146 [facility] Comment on above: Performed By: #### P INR, BMP, , CBC #### [facility] ([id number]) [address], [address] [place] [address] Urea nitrogen [Mass/Vol] 13 mg/dL Normal 5-27 [facility] Comment on above: Performed By: #### P INR, BMP, , CBC #### [facility] ([id number]) [address], [address] [place] [address] COMPLETE BLOOD COUNTon 01-26 Erythrocyte distribution width (RBC) [Ratio] 14.0 % Normal 11.5-15.0 [facility] Comment on above: Performed By: #### P INR, BMP, , CBC #### [facility] ([id number]) [address], [address] [place] [address] Hematocrit (Bld) [Volume fraction] 29.7 % Low 39-49 [facility] Comment on above: Performed By: #### P INR, BMP, , CBC #### [facility] ([id number]) [address], [address] [place] [address] Hemoglobin (Bld) [Mass/Vol] 9.7 g/dL Low 13.0-17.0 [facility] Comment on above: Performed By: #### P INR, BMP, , CBC #### [facility] ([id number]) [address], [address] [place] [address] MCH (RBC) [Entitic mass] 29.9 pg Normal 27-34 [facility] Comment on above: Performed By: #### P INR, BMP, , CBC #### [facility] ([id number]) [address], [address] [place] [address] MCHC (RBC) [Mass/Vol] 32.7 g/dL Normal 32-36 [facility] Comment on above: Performed By: #### P INR, BMP, , CBC #### [facility] ([id number]) [address], [address] [place] [address] MCV (RBC) [Entitic vol] 92 fL Normal 80-100 [facility] Comment on above: Performed By: #### P INR, BMP, , CBC #### [facility] ([id number]) [address], [address] [place] [address] Platelet mean volume (Bld) [Entitic vol] 7.3 fL Normal 7-12 [facility] Comment on above: Performed By: #### P INR, BMP, , CBC #### [facility] ([id number]) [address], [address] [place] [address] Platelets (Bld) [#/Vol] 134 10*3/uL Low 150-450 [facility] Comment on above: Performed By: #### P INR, BMP, , CBC #### [facility] ([id number]) [address], [address] [place] [address] RBC COUNT 3.24 X10E12/L Low 4.10-5.70 [facility] Comment on above: Performed By: #### P INR, BMP, , CBC #### [facility] ([id number]) [address], [facility] [address] [place] [address] WBC (Bld) [#/Vol] 5.3 10*3/uL Normal 4.0-11.0 [facility] Comment on above: Performed By: #### P INR, BMP, , CBC #### [facility] ([id number]) [address], [address] [place] [address] MAGNESIUMon 01-26-2025 Magnesium [Mass/Vol] 2.0 mg/dL Normal 1.8-2.6 [facility] Comment on above: Performed By: #### P INR, BMP, , CBC #### [facility] ([id number]) [address], [address] [place] [address] BASIC METABOLIC PANLon 01-25 Anion gap [Moles/Vol] 7 mmol/L Normal 5-15 [facility] Comment on above: Performed By: #### P INR, BMP, , CBC #### [facility] ([id number]) [address], [address] [place] [address] Calcium [Mass/Vol] 8.5 mg/dL Normal 8.5-10.5 [facility] Comment on above: Performed By: #### P INR, BMP, , CBC #### [facility] ([id number]) [address], [address] [place] [address] Chloride [Moles/Vol] 99 mmol/L Normal 98-109 [facility] Comment on above: Performed By: #### P INR, BMP, , CBC #### [facility] ([id number]) [address], [address] [place] [address] CO2 [Moles/Vol] 31 mmol/L Normal 22-32 [facility] Comment on above: Performed By: #### P INR, BMP, , CBC #### [facility] ([id number]) [address], [address] [place] [address] Creatinine [Mass/Vol] 0.52 mg/dL Low 0.60-1.30 [facility] Comment on above: Result Comment: METH OD TRACEABLE TO IDMS STANDARD Performed By: #### P INR, BMP, , CBC #### [facility] ([id number]) [address], [address] [place] [address] eGFR (CKD-EPI) NON-RACE DEPENDENT >90 Normal >59 [facility] Comment on above: Result Comment: Reported eGFR is based on the CKD-EPI 2020 equation that does not use a race coefficient. Performed By: #### P INR, BMP, , CBC #### [facility] ([id number]) [address], [address] [place] [address] Glucose [Mass/Vol] 104 mg/dL High 65-99 [facility] Comment on above: Performed By: #### P INR, BMP, , CBC #### [facility] ([id number]) [address], [address] [place] [address] Potassium [Moles/Vol] 4.3 mmol/L Normal 3.5-5.0 [facility] Comment on above: Performed By: #### P INR, BMP, , CBC #### [facility] ([id number]) [address], [address] [place] [address] Sodium [Moles/Vol] 137 mmol/L Normal 134-146 [facility] Comment on above: Performed By: #### P INR, BMP, , CBC #### [facility] ([id number]) [address], [address] [place] [address] Urea nitrogen [Mass/Vol] 10 mg/dL Normal 5-27 [facility] Comment on above: Performed By: #### P INR, BMP, , CBC #### [facility] ([id number]) [address], [address] [place] [address] COMPLETE BLOOD COUNTon 01-25 Erythrocyte distribution width (RBC) [Ratio] 13.7 % Normal 11.5-15.0 [facility] Comment on above: Performed By: #### P INR, BMP, , CBC #### [facility] ([id number]) [address], [address] [place] [address] Hematocrit (Bld) [Volume fraction] 30.9 % Low 39-49 [facility] Comment on above: Performed By: #### P INR, BMP, , CBC #### [facility] ([id number]) [address], [address] [place] [address] Hemoglobin (Bld) [Mass/Vol] 10.1 g/dL Low 13.0-17.0 [facility] Comment on above: Performed By: #### P INR, BMP, , CBC #### [facility] ([id number]) [address], [address] [place] [address] MCH (RBC) [Entitic mass] 30.1 pg Normal 27-34 [facility] Comment on above: Performed By: #### P INR, BMP, , CBC #### [facility] ([id number]) [address], [address] [place] [address] MCHC (RBC) [Mass/Vol] 32.8 g/dL Normal 32-36 [facility] Comment on above: Performed By: #### P INR, BMP, , CBC #### [facility] ([id number]) [address], [address] [place] [address] MCV (RBC) [Entitic vol] 92 fL Normal 80-100 [facility] Comment on above: Performed By: #### P INR, BMP, , CBC #### [facility] ([id number]) [address], [address] [place] [address] Platelet mean volume (Bld) [Entitic vol] 7.1 fL Normal 7-12 [facility] Comment on above: Performed By: #### P INR, BMP, , CBC #### [facility] ([id number]) [address], [address] [place] [address] Platelets (Bld) [#/Vol] 134 10*3/uL Low 150-450 [facility] Comment on above: Performed By: #### P INR, BMP, , CBC #### [facility] ([id number]) [address], [address] [place] [address] RBC COUNT 3.36 X10E12/L Low 4.10-5.70 [facility] Comment on above: Performed By: #### P INR, BMP, , CBC #### [facility] ([id number]) [address], [address] [place] [address] WBC (Bld) [#/Vol] 5.3 10*3/uL Normal 4.0-11.0 [facility] Comment on above: Performed By: #### P INR, BMP, , CBC #### [facility] ([id number]) [address], [address] [place] [address] MAGNESIUMon 01-25-2025 Magnesium [Mass/Vol] 1.8 mg/dL Normal 1.8-2.6 [facility] Comment on above: Performed By: #### P INR, BMP, , CBC #### [facility] ([id number]) [address], [address] [place] [address] Vancomycin [Mass/Vol]on 01-01 VANCOMYCIN 45.7 ug/mL High 5.0-40.0 [facility] Comment on above: Result Comment: Peak 30-40 ug/mL Trough 5-20 ug/ml Performed By: #### P INR, BMP, , CBC #### [facility] ([id number]) [address], [address] [place] [address] Vancomycin trough [Mass/Vol] on 01-25-2025 VANCOMYCIN TROUGH 22.3 ug/mL High 5.0-20.0 [facility] Comment on above: Performed By: #### P INR, BMP, , CBC #### [facility] ([id number]) [address], [address] [place] [address] BASIC METABOLIC PANLon 01-24 Anion gap [Moles/Vol] 3 mmol/L Low 5-15 [facility] Comment on above: Performed By: #### P INR, BMP, , CBC #### [facility] ([id number]) [address] [place] [address] Calcium [Mass/Vol] 8.3 mg/dL Low 8.5-10.5 [facility] Comment on above: Performed By: #### P INR, BMP, , CBC #### [facility] ([id number]) [address], [address] [place] [address] Chloride [Moles/Vol] 102 mmol/L Normal 98-109 [facility] Comment on above: Performed By: #### P INR, BMP, , CBC #### [facility] ([id number]) [address], [address] [place] [address] CO2 [Moles/Vol] 35 mmol/L High 22-32 [facility] Comment on above: Performed By: #### P INR, BMP, , CBC #### [facility] ([id number]) [address], [address] [place] [address] Creatinine [Mass/Vol] 0.53 mg/dL Low 0.60-1.30 [facility] Comment on above: Result Comment: METH OD TRACEABLE TO IDMS STANDARD Performed By: #### P INR, BMP, , CBC #### [facility] ([id number]) [address], [address] [place] [address] eGFR (CKD-EPI) NON-RACE DEPENDENT >90 Normal >59 [facility] Comment on above: Result Comment: Reported eGFR is based on the CKD-EPI 2020 equation that does not use a race coefficient. Performed By: #### P INR, BMP, , CBC #### [facility] ([id number]) [address], [address] [place] [address] Glucose [Mass/Vol] 107 mg/dL High 65-99 [facility] Comment on above: Performed By: #### P INR, BMP, , CBC #### [facility] ([id number]) [address], [address] [place] [address] Potassium [Moles/Vol] 4.5 mmol/L Normal 3.5-5.0 [facility] Comment on above: Performed By: #### P INR, BMP, , CBC #### [facility] ([id number]) [address], [address] [place] [address] Sodium [Moles/Vol] 140 mmol/L Normal 134-146 [facility] Comment on above: Performed By: #### P INR, BMP, , CBC #### [facility] ([id number]) [address], [address] [place] [address] Urea nitrogen [Mass/Vol] 13 mg/dL Normal 5-27 [facility] Comment on above: Performed By: #### P INR, BMP, , CBC #### [facility] ([id number]) [address], [address] [place] [address] COMPLETE BLOOD COUNTon 01-24 Erythrocyte distribution width (RBC) [Ratio] 13.8 % Normal 11.5-15.0 [facility] Comment on above: Performed By: #### P INR, BMP, , CBC #### [facility] ([id number]) [address], [address] [place] [address] Hematocrit (Bld) [Volume fraction] 32.1 % Low 39-49 [facility] Comment on above: Performed By: #### P INR, BMP, , CBC #### [facility] ([id number]) [address], [address] [place] [address] Hemoglobin (Bld) [Mass/Vol] 10.4 g/dL Low 13.0-17.0 [facility] Comment on above: Performed By: #### P INR, BMP, , CBC #### [facility] ([id number]) [address], [address] [address] MCH (RBC) [Entitic mass] 29.8 pg Normal 27-34 [facility] Comment on above: Performed By: #### P INR, BMP, , CBC #### [facility] ([id number]) [address], [address] [address] MCHC (RBC) [Mass/Vol] 32.4 g/dL Normal 32-36 [facility] Comment on above: Performed By: #### P INR, BMP, , CBC #### [facility] ([id number]) [address], [address] [address] MCV (RBC) [Entitic vol] 92 fL Normal 80-100 [facility] Comment on above: Performed By: #### P INR, BMP, , CBC #### [facility] ([id number]) [address] [address] Platelet mean volume (Bld) [Entitic vol] 7.2 fL Normal 7-12 [facility] Comment on above: Performed By: #### P INR, BMP, , CBC #### [facility] ([id number]) [address] [address] Platelets (Bld) [#/Vol] 134 10*3/uL Low 150-450 [facility] Comment on above: Performed By: #### P INR, BMP, , CBC #### [facility] ([id number]) [address], [facility] [address] [place] [address] RBC COUNT 3.49 X10E12/L Low 4.10-5.70 [facility] Comment on above: Performed By: #### P INR, BMP, , CBC #### [facility] ([id number]) [address], [address] [place] [address] WBC (Bld) [#/Vol] 3.8 10*3/uL Low 4.0-11.0 [facility] Comment on above: Performed By: #### P INR, BMP, , CBC #### [facility] ([id number]) [address] [facility] [address] [place] [address] MAGNESIUMon 01-24-2025 Magnesium [Mass/Vol] 2.0 mg/dL Normal 1.8-2.6 [facility] Comment on above: Performed By: #### P INR, BMP, , CBC #### [facility] ([id number]) [address] [place] [address], [address] [place] [address] Surgical Pathologyon 025 Surgical Pathology Normal [facility] Comment on above: Result Comment: [facility] [address] [place] [address] Surgical Pathology Consultation Patient Name:KJ LEI:1945 (Age: 79)Gender:MTaken:01/24/2025Reported:01/31/2025Physician(s):Abraham Pimentel MD ( )Copy To: Rec. #:[id number]: #[id number] Final Pathologic Diagnosis Right leg, below-knee amputation: [...] Out ao/01/31/2025bal Cortes MD Interpretation performed at [facility], [address] [place] [id number], License number: [id number]. Clinical History Wounds leg right. Gross Description Received fresh labeled DO, right below the knee amputation is a right below the knee amputation specimen received transected at the proximal tibia and fibula margins. The specimen is resected with first, third, fourth and fifth digits however the second digit is previously resected. The foot is 26 cm proximal-distal, 6 cm medial-lateral and 8.5 cm dorsal-plantar. The attached lower portion of leg is [...] proximal skin/soft tissue resection margin, en face (5,ss,[id number], m6.1) . med/01/25/2025WAK Specimen(s) Received Right below the knee amputation (BKA) Fee Codes(s): 1; 87754, 73774 BASIC METABOLIC PANLon 01-23 Anion gap [Moles/Vol] 5 mmol/L Normal 5-15 [facility] Comment on above: Performed By: #### P INR, BMP, 66303-7, CBC #### [facility] ([id number]) [address] [place] [address], [address] [place] [address] Calcium [Mass/Vol] 8.5 mg/dL Normal 8.5-10.5 [facility] Comment on above: Performed By: #### P INR, BMP, , CBC #### [facility] ([id number]) [address], [address] [place] [address] Chloride [Moles/Vol] 101 mmol/L Normal 98-109 [facility] Comment on above: Performed By: #### P INR, BMP, , CBC #### [facility] ([id number]) [address], [address] [place] [address] CO2 [Moles/Vol] 33 mmol/L High 22-32 [facility] Comment on above: Performed By: #### P INR, BMP, , CBC #### [facility] ([id number]) [address], [address] [place] [address] Creatinine [Mass/Vol] 0.55 mg/dL Low 0.60-1.30 [facility] Comment on above: Result Comment: METH OD TRACEABLE TO IDMS STANDARD Performed By: #### P INR, BMP, , CBC #### [facility] ([id number]) [address], [address] [place] [address] eGFR (CKD-EPI) NON-RACE DEPENDENT >90 Normal >59 [facility] Comment on above: Result Comment: Reported eGFR is based on the CKD-EPI 1 equation that does not use a race coefficient. Performed By: #### P INR, BMP, , CBC #### [facility] ([id number]) [address], [address] [place] [address] Glucose [Mass/Vol] 98 mg/dL Normal 65-99 [facility] Comment on above: Performed By: #### P INR, BMP, , CBC #### [facility] ([id number]) [address], [address] [place] [address] Potassium [Moles/Vol] 4.3 mmol/L Normal 3.5-5.0 [facility] Comment on above: Performed By: #### P INR, BMP, , CBC #### [facility] ([id number]) [address], [address] [place] [address] Sodium [Moles/Vol] 139 mmol/L Normal 134-146 [facility] Comment on above: Performed By: #### P INR, [facility], , CBC #### [facility] ([id number]) [address], [address] [place] [address] Urea nitrogen [Mass/Vol] 13 mg/dL Normal 5-27 [facility] Comment on above: Performed By: #### P INR, BMP, , CBC #### [facility] ([id number]) [address], [address] [place] [address] COMPLETE BLOOD COUNTon 01-23 Erythrocyte distribution width (RBC) [Ratio] 14.1 % Normal 11.5-15.0 [facility] Comment on above: Performed By: #### C BC, BMP, , 4091-3 #### [facility] ([id number]) [address], [facility] [address] [place] [address] Hematocrit (Bld) [Volume fraction] 30.9 % Low 39-49 [facility] Comment on above: Performed By: #### C BC, BMP, , 4091-3 #### [facility] ([id number]) [address], [address] [place] [address] Hemoglobin (Bld) [Mass/Vol] 10.5 g/dL Low 13.0-17.0 [facility] Comment on above: Performed By: #### C BC, BMP, , 4091-3 #### [facility] ([id number]) [address], [address] [place] [address] MCH (RBC) [Entitic mass] 31.1 pg Normal 27-34 [facility] Comment on above: Performed By: #### C CHRISTIANO, BMP, , 4092-01 #### [facility] ([id number]) [address], [address] [place] [address] MCHC (RBC) [Mass/Vol] 33.9 g/dL Normal 32-36 [facility] Comment on above: Performed By: #### Paula ALVARADO, BMP, , 4092-01 #### [facility] ([id number]) [address], [address] [place] [address] MCV (RBC) [Entitic vol] 92 fL Normal 80-100 [facility] Comment on above: Performed By: #### Paula ALVARADO, BMP, , 4092-01 #### [facility] ([id number]) [address], [address] [place] [address] Platelet mean volume (Bld) [Entitic vol] 7.5 fL Normal 7-12 [facility] Comment on above: Performed By: #### Paula ALVARADO, BMP, , 4092-01 #### [facility] ([id number]) [address], [address] [place] [address] Platelets (Bld) [#/Vol] 132 10*3/uL Low 150-450 [facility] Comment on above: Performed By: #### Paula ALVARADO, BMP, , 4092-01 #### [facility] ([id number]) [address], [facility] [address] [place] [address] RBC COUNT 3.37 X10E12/L Low 4.10-5.70 [facility] Comment on above: Performed By: #### Paula ALVARADO, BMP, , 4092-01 #### [facility] ([id number]) [address], [address] [place] [address] WBC (Bld) [#/Vol] 3.4 10*3/uL Low 4.0-11.0 [facility] Comment on above: Performed By: #### C BC, BMP, , 4092-3 #### [facility] ([id number]) [address], [address] [place] [address] MAGNESIUMon 01-23-2025 Magnesium [Mass/Vol] 2.0 mg/dL Normal 1.8-2.6 [facility] Comment on above: Performed By: #### P INR, BMP, , CBC #### [facility] ([id number]) [address] [address] [place] [address] Vancomycin [Mass/Vol]on 01-01 VANCOMYCIN 35.7 ug/mL Normal 5.0-40.0 [facility] Comment on above: Result Comment: Peak 30-40 ug/mL Trough 5-20 ug/ml Performed By: #### P INR, BMP, , CBC #### [facility] ([id number]) [address] [address] [place] [address] Vancomycin trough [Mass/Vol] on 01-23-2025 VANCOMYCIN TROUGH 21.0 ug/mL High 5.0-20.0 [facility] Comment on above: Performed By: #### P INR, BMP, , CBC #### [facility] ([id number]) [address] [address] [place] [address] BASIC METABOLIC PANLon 01-22 Anion gap [Moles/Vol] 6 mmol/L Normal 5-15 [facility] Comment on above: Performed By: #### C BC, BMP, #### [facility] ([id number]) [address], [address] [place] [address] Calcium [Mass/Vol] 8.6 mg/dL Normal 8.5-10.5 [facility] Comment on above: Performed By: #### C LUCY ALVARADO, #### [facility] ([id number]) [address], [address] [place] [address] Chloride [Moles/Vol] 104 mmol/L Normal 98-109 [facility] Comment on above: Performed By: #### C LUCY ALVARADO, #### [facility] ([id number]) [address], [address] [place] [address] CO2 [Moles/Vol] 30 mmol/L Normal 22-32 [facility] Comment on above: Performed By: #### LUCY ZAVALA, #### [facility] ([id number]) [address], [address] [place] [address] Creatinine [Mass/Vol] 0.61 mg/dL Normal 0.60-1.30 [facility] Comment on above: Result Comment: METH OD TRACEABLE TO IDMS STANDARD Performed By: #### C LUCY ALVARADO, #### [facility] ([id number]) [address], [address] [place] [address] eGFR (CKD-EPI) NON-RACE DEPENDENT >90 Normal >59 [facility] Comment on above: Result Comment: Reported eGFR is based on the CKD-EPI 2020 equation that does not use a race coefficient. Performed By: #### C LUCY ALVARADO, #### [facility] ([id number]) [address], [address] [place] [address] Glucose [Mass/Vol] 112 mg/dL High 65-99 [facility] Comment on above: Performed By: #### C LUCY ALVARADO, #### [facility] ([id number]) [address], [address] [place] [address] Potassium [Moles/Vol] 4.2 mmol/L Normal 3.5-5.0 [facility] Comment on above: Performed By: #### Paula ALVARADO BMP, #### [facility] ([id number]) [address], [address] [place] [address] Sodium [Moles/Vol] 140 mmol/L Normal 134-146 [facility] Comment on above: Performed By: #### Paula ALVARADO [facility], #### [facility] ([id number]) [address], [address] [place] [address] Urea nitrogen [Mass/Vol] 15 mg/dL Normal 5-27 [facility] Comment on above: Performed By: #### Paula ALVARADO [facility], #### [facility] ([id number]) [address], [address] [place] [address] COMPLETE BLOOD COUNTon 01-22 Erythrocyte distribution width (RBC) [Ratio] 13.9 % Normal 11.5-15.0 [facility] Comment on above: Performed By: #### LUCY ZAVALA, #### [facility] ([id number]) [address], [address] [place] [address] Hematocrit (Bld) [Volume fraction] 30.0 % Low 39-49 [facility] Comment on above: Performed By: #### Paula ALVARADO BMP, #### [facility] ([id number]) [address], [address] [place] [address] Hemoglobin (Bld) [Mass/Vol] 9.9 g/dL Low 13.0-17.0 [facility] Comment on above: Performed By: #### LUCY ZAVALA, #### [facility] ([id number]) [address], [address] [place] [address] MCH (RBC) [Entitic mass] 30.4 pg Normal 27-34 [facility] Comment on above: Performed By: #### LUCY ZAVALA, #### [facility] ([id number]) [address], [address] [place] [address] MCHC (RBC) [Mass/Vol] 33.1 g/dL Normal 32-36 [facility] Comment on above: Performed By: #### LUCY ZAVALA, #### [facility] ([id number]) [address], [address] [place] [address] MCV (RBC) [Entitic vol] 92 fL Normal 80-100 [facility] Comment on above: Performed By: #### LUCY ZAVALA, #### [facility] ([id number]) [address], [address] [place] [address] Platelet mean volume (Bld) [Entitic vol] 7.7 fL Normal 7-12 [facility] Comment on above: Performed By: #### LUCY ZAVALA, #### [facility] ([id number]) [address], [address] [place] [address] Platelets (Bld) [#/Vol] 139 10*3/uL Low 150-450 [facility] Comment on above: Performed By: #### LUCY ZAVALA, #### [facility] ([id number]) [address], [address] [place] [address] RBC COUNT 3.27 X10E12/L Low 4.10-5.70 [facility] Comment on above: Performed By: #### LUCY ZAVALA, #### [facility] ([id number]) [address], [address] [place] [address] WBC (Bld) [#/Vol] 3.6 10*3/uL Low 4.0-11.0 [facility] Comment on above: Performed By: #### C BC, BMP, #### [facility] ([id number]) [address], [facility] [address] [place] [address] MAGNESIUMon 01-22-2025 Magnesium [Mass/Vol] 2.1 mg/dL Normal 1.8-2.6 [facility] Comment on above: Performed By: #### 1 919 #### [facility] ([id number]) [address], [facility] [address] [place] [address] Magnesium [Mass/Vol] 1.9 mg/dL Normal 1.8-2.6 [facility] Comment on above: Performed By: #### C BC, BMP, #### [facility] ([id number]) [address], [address] [place] [address] BASIC METABOLIC PANLon 01-21 Anion gap [Moles/Vol] 8 mmol/L Normal 5-15 [facility] Comment on above: Performed By: #### P INR, BMP, , CBC #### [facility] ([id number]) [address], [facility] [address] [place] [address] Calcium [Mass/Vol] 8.7 mg/dL Normal 8.5-10.5 [facility] Comment on above: Performed By: #### P INR, BMP, , CBC #### [facility] ([id number]) [address], [facility] [address] [place] [address] Chloride [Moles/Vol] 104 mmol/L Normal 98-109 [facility] Comment on above: Performed By: #### P INR, BMP, , CBC #### [facility] ([id number]) [address], [address] [place] [address] CO2 [Moles/Vol] 30 mmol/L Normal 22-32 [facility] Comment on above: Performed By: #### P INR, BMP, , CBC #### [facility] ([id number]) [address], [address] [place] [address] Creatinine [Mass/Vol] 0.60 mg/dL Normal 0.60-1.30 [facility] Comment on above: Result Comment: METH OD TRACEABLE TO IDMS STANDARD Performed By: #### P INR, BMP, , CBC #### [facility] ([id number]) [address], [facility] [address] [place] [address] eGFR (CKD-EPI) NON-RACE DEPENDENT >90 Normal >59 [facility] Comment on above: Result Comment: Reported eGFR is based on the CKD-EPI 2020 equation that does not use a race coefficient. Performed By: #### P INR, BMP, , CBC #### [facility] ([id number]) [address], [address] [place] [address] Glucose [Mass/Vol] 103 mg/dL High 65-99 [facility] Comment on above: Performed By: #### P INR, BMP, , CBC #### [facility] ([id number]) [address], [address] [place] [address] Potassium [Moles/Vol] 3.8 mmol/L Normal 3.5-5.0 [facility] Comment on above: Performed By: #### P INR, BMP, , CBC #### [facility] ([id number]) [address], [address] [place] [address] Sodium [Moles/Vol] 142 mmol/L Normal 134-146 [facility] Comment on above: Performed By: #### P INR, BMP, , CBC #### [facility] ([id number]) [address], [address] [place] [address] Urea nitrogen [Mass/Vol] 16 mg/dL Normal 5-27 [facility] Comment on above: Performed By: #### P INR, BMP, , CBC #### [facility] ([id number]) [address], [facility] [address] [place] [address] COMPLETE BLOOD COUNTon 01-21 Erythrocyte distribution width (RBC) [Ratio] 13.7 % Normal 11.5-15.0 [facility] Comment on above: Performed By: #### P INR, BMP, , CBC #### [facility] ([id number]) [address], [facility] [address] [place] [address] Hematocrit (Bld) [Volume fraction] 32.6 % Low 39-49 [facility] Comment on above: Performed By: #### P INR, BMP, , CBC #### [facility] ([id number]) [address], [facility] [address] [place] [address] Hemoglobin (Bld) [Mass/Vol] 11.0 g/dL Low 13.0-17.0 [facility] Comment on above: Performed By: #### P INR, BMP, , CBC #### [facility] ([id number]) [address], [facility] [address] [place] [address] MCH (RBC) [Entitic mass] 30.8 pg Normal 27-34 [facility] Comment on above: Performed By: #### P INR, BMP, , CBC #### [facility] ([id number]) [address] [address] [place] [address] MCHC (RBC) [Mass/Vol] 33.7 g/dL Normal 32-36 [facility] Comment on above: Performed By: #### P INR, BMP, , CBC #### [facility] ([id number]) [address] [place] [address] MCV (RBC) [Entitic vol] 91 fL Normal 80-100 [facility] Comment on above: Performed By: #### P INR, BMP, , CBC #### [facility] ([id number]) [address], [address] [place] [address] Platelet mean volume (Bld) [Entitic vol] 7.7 fL Normal 7-12 [facility] Comment on above: Performed By: #### P INR, BMP, , CBC #### [facility] ([id number]) [address] [place] [address] Platelets (Bld) [#/Vol] 158 10*3/uL Normal 150-450 [facility] Comment on above: Performed By: #### P INR, BMP, , CBC #### [facility] ([id number]) [address], [address] [place] [address] RBC COUNT 3.58 X10E12/L Low 4.10-5.70 [facility] Comment on above: Performed By: #### P INR, BMP, , CBC #### [facility] ([id number]) [address], [facility] [address] [place] [address] WBC (Bld) [#/Vol] 5.3 10*3/uL Normal 4.0-11.0 [facility] Comment on above: Performed By: #### P INR, BMP, , CBC #### [facility] ([id number]) [address], [facility] [address] [place] [address] MAGNESIUMon 01-21-2025 Magnesium [Mass/Vol] 1.8 mg/dL Normal 1.8-2.6 [facility] Comment on above: Performed By: #### P INR, BMP, , CBC #### [facility] ([id number]) [address] [place] [address] PROTIME AND INRon 01-21-2025 INR Coag (PPP) [Relative time] 1.1 {INR} Normal 0.8-1.1 [facility] Comment on above: Performed By: #### P INR, BMP, , CBC #### [facility] ([id number]) [address], [address] [place] [address] PT Coag (PPP) [Time] 12.7 s Normal 9.8-13.2 [facility] Comment on above: Performed By: #### P INR, BMP, , CBC #### [facility] ([id number]) [address], [address] [place] [address] BASIC METABOLIC PANLon 09-14 Anion gap [Moles/Vol] 7 mmol/L Normal 5-15 [facility] Comment on above: Performed By: #### B MP #### [facility] ([id number]) [address] [place] [address] Calcium [Mass/Vol] 9.0 mg/dL Normal 8.5-10.5 [facility] Comment on above: Performed By: #### B MP #### [facility] ([id number]) [address] [place] [address] Chloride [Moles/Vol] 101 mmol/L Normal 98-109 [facility] Comment on above: Performed By: #### B MP #### [facility] ([id number]) [address] [place] [address] CO2 [Moles/Vol] 32 mmol/L Normal 22-32 [facility] Comment on above: Performed By: #### B MP #### [facility] ([id number]) [address] [place] [address] Creatinine [Mass/Vol] 0.74 mg/dL Normal 0.60-1.30 [facility] Comment on above: Result Comment: METH OD TRACEABLE TO IDMS STANDARD Performed By: #### B MP #### [facility] ([id number]) [address] [place] [address] eGFR (CKD-EPI) NON-RACE DEPENDENT >90 Normal >59 [facility] Comment on above: Result Comment: Reported eGFR is based on the CKD-EPI 2020 equation that does not use a race coefficient. Performed By: #### B MP #### [facility] ([id number]) [address] [place] [address] Glucose [Mass/Vol] 95 mg/dL Normal 65-99 [facility] Comment on above: Performed By: #### B MP #### [facility] ([id number]) [address] [place] [address] Potassium [Moles/Vol] 3.6 mmol/L Normal 3.5-5.0 [facility] Comment on above: Performed By: #### B MP #### [facility] ([id number]) [address] [place] [address] Sodium [Moles/Vol] 140 mmol/L Normal 134-146 [facility] Comment on above: Performed By: #### B MP #### [facility] ([id number]) [address] [place] [address] Urea nitrogen [Mass/Vol] 19 mg/dL Normal 5-27 [facility] Comment on above: Performed By: #### B MP #### [facility] ([id number]) [address] [place] [address] 25-hydroxyvitamin D3 [Mass/V ol]on 01-07-2024 Performing Organization Information Site ID: QPT Name: [employer] [facility] Address: [address] [place] [address], [address] [place] [address] Director: Maninder Alves MD [facility] CBC W Auto Differential pane l (Bld)on 01-07-2024 Basophils (Bld) [#/Vol] 32 10*3/uL [facility] Basophils/100 WBC (Bld) 0.8 % [facility] Eosinophils (Bld) [#/Vol] 160 10*3/uL [facility] Eosinophils/100 WBC (Bld) 4.0 % [facility] Erythrocyte distribution width (RBC) [Ratio] 12.6 % 11.0 - 15.0 % [facility] Hematocrit (Bld) [Volume fraction] 37.7 % Low 38.5 - 50.0 % [facility] Hemoglobin (Bld) [Mass/Vol] 12.0 g/dL Low 13.2 - 17.1 g/dL [facility] Lymphocytes (Bld) [#/Vol] 664 10*3/uL Low [facility] Lymphocytes/100 WBC (Bld) 16.6 % [facility] MCH (RBC) [Entitic mass] 29.8 pg 27.0 - 33.0 pg [facility] MCHC (RBC) [Mass/Vol] 31.8 g/dL Low 32.0 - 36.0 g/dL [facility] MCV (RBC) [Entitic vol] 93.5 fL 80.0 - 100.0 fL [facility] Monocytes (Bld) [#/Vol] 452 10*3/uL [facility] Monocytes/100 WBC (Bld) 11.3 % [facility] Neutrophils (Bld) [#/Vol] 2692 10*3/uL [facility] Neutrophils/100 WBC (Bld) 67.3 % [facility] Platelet mean volume (Bld) [Entitic vol] 9.9 fL 7.5 - 12.5 fL [facility] Platelets (Bld) [#/Vol] 179 10*3/uL [facility] RBC (Bld) [#/Vol] 4.03 10*6/uL Low [facility] WBC (Bld) [#/Vol] 4.0 10*3/uL [facility] Laboratory - Chemistry and C hemistry - challengeon 01-07-2024 Albumin [Mass/Vol] 3.9 g/dL 3.6 - 5.1 g/dL [facility] Albumin/Globulin [Mass ratio] 1.1 {ratio} [facility] ALP [Catalytic activity/Vol] 76 U/L 35 - 144 U/L [facility] ALT [Catalytic activity/Vol] 14 U/L 9 - 46 U/L [facility] AST [Catalytic activity/Vol] 18 U/L 10 - 35 U/L [facility] Bilirubin [Mass/Vol] 0.4 mg/dL 0.2 - 1 .2 mg/dL [facility] Calcium [Mass/Vol] 9.0 mg/dL 8.6 - 10. 3 mg/dL [facility] Chloride [Moles/Vol] 103 mmol/L 98 - 11 0 mmol/L [facility] CO2 [Moles/Vol] 29 mmol/L 20 - 32 mmol/L [facility] Creatinine [Mass/Vol] 0.61 mg/dL Low 0.70 - 1.28 mg/dL [facility] GFR/1.73 sq M.predicted among non-blacks MDRD (S/P/Bld) [Vol rate/Area] 100 mL/min/{1.73_m2} > OR = 60 mL/min/1.73m2 [facility] Globulin (S) [Mass/Vol] 3.4 g/dL [facility] Glucose [Mass/Vol] 90 mg/dL 65 - 99 mg/dL [facility] Comment on above: Fasting reference interval Potassium [Moles/Vol] 4.1 mmol/L 3.5 - 5.3 mmol/L [facility] Protein [Mass/Vol] 7.3 g/dL 6.1 - 8.1 g/dL NO [facility] Sodium [Moles/Vol] 143 mmol/L 135 - 146 mmol/L [facility] TSH Qn 1.54 m[IU]/L [facility] Urea nitrogen [Mass/Vol] 16 mg/dL 7 - 25 mg/dL [facility] Urea nitrogen/Creatinine [Mass ratio] 26 mg/mg High [facility] 25-hydroxyvitamin D3 [Mass/Vol] 36 ng/mL 30 - 100 ng/mL [facility] Comment on above: Vitamin D Status 25- [place] Vitamin D: Deficiency: <20 ng/mL Insufficiency: 20 - 29 ng/mL Optimal: > or = 30 ng/mL For 25-OH Vitamin D testing on patients on D2-supplementation and patients for whom quantitation of D2 and D3 fractions is required, the QuestAssureD(TM) 25-[place] VIT D, (D2,D3), LC/MS/MS is recommended: order code 47602 (patients >2yrs). See Note 1 Note 1 For additional information, please refer to http://education.Push IO/faq/UZU487 (This link is being provided for informational/ educational purposes only.) No Panel Informationon 01-07 Interpretation and review of laboratory results Abnormal [facility] Performing Organization Information Site ID: QPT Name: [employer] [facility] Address: [address] [place] [address], [address] [place] [phone] Director: Maninder Alves MD [facility] Vital Signs Date Time Vital Sign Value Performing Clinician Facility 03-27-2025 13:52-0400 Diastolic blood pressure 62 mm[Hg] Suzi Moyer NP Work Phone: [facility] 03-27-2025 13:52-0400 Heart rate 60 /min Suzi Moyer NP Work Phone: [facility] 03-27-2025 13:52-0400 SaO2% (BldA) [Mass fraction] 90 % Suzi Moyer NP Work Phone: [facility] 03-27-2025 13:52-0400 Systolic blood pressure 124 mm[Hg] Suzi Moyer NP Work Phone: [facility] 03-02-2025 10:47-0400 Body mass index (BMI) [Ratio] 28.48 kg/m2 Abraham Pimentel MD Work Phone: [facility] 03-02-2025 10:47-0400 Body temperature 97.3 [degF] Abraham Pimentel MD Work Phone: [facility] 03-02-2025 10:47-0400 Body weight 95.25 kg Abraham Pimentel MD Work Phone: [facility] 03-02-2025 10:47-0400 Diastolic blood pressure 66 mm[Hg] Abraham Pimentel MD Work Phone: [facility] 03-02-2025 10:47-0400 Heart rate 82 /min Abraham Pimentel MD Work Phone: [facility] 03-02-2025 10:47-0400 SaO2% (BldA) [Mass fraction] 97 % Abraham Pimentel MD Work Phone: [facility] 03-02-2025 10:47-0400 Systolic blood pressure 124 mm[Hg] Abraham Pimentel MD Work Phone: [facility] 02-18-2025 03:00-0400 Body temperature 98.91 [degF] Kena Lee MD Work Phone: [facility] 02-18-2025 03:00-0400 Diastolic blood pressure 58 mm[Hg] Kena Lee MD Work Phone: [facility] 02-18-2025 03:00-0400 Heart rate 90 /min Kena Lee MD Work Phone: [facility] 02-18-2025 03:00-0400 Respiratory rate 14 /min Kena Lee MD Work Phone: [facility] 02-18-2025 03:00-0400 Systolic blood pressure 110 mm[Hg] Kena Lee MD Work Phone: [facility] 02-17-2025 19:30-0400 SaO2% (BldA) [Mass fraction] 94 % Kena Lee MD Work Phone: [facility] 02-16-2025 03:11-0400 Body mass index (BMI) [Ratio] 29.81 kg/m2 Kena Lee MD Work Phone: [facility] 02-16-2025 03:11-0400 Body weight 99.7 kg Kena Lee MD Work Phone: [facility] 02-15-2025 [id number] Body height 182.9 cm Kena Lee MD Work Phone: [facility] 01-19-2025 10:27-0500 Body height 182.9 cm Abraham Pimentel MD Work Phone: [facility] 01-19-2025 10:27-0500 Body mass index (BMI) [Ratio] 33.9 kg/m2 Abraham Pimentel MD Work Phone: [facility] 01-19-2025 10:27-0500 Body temperature 96.8 [degF] Abraham Pimentel MD Work Phone: [facility] 01-19-2025 10:27-0500 Body weight 113.4 kg Abraham Pimentel MD Work Phone: [facility] 01-19-2025 10:27-0500 Diastolic blood pressure 100 mm[Hg] Abraham Pimentel MD Work Phone: [facility] 01-19-2025 10:27-0500 Heart rate 79 /min Abraham Pimentel MD Work Phone: [facility] 01-19-2025 10:27-0500 Respiratory rate 18 /min Abraham Pimentel MD Work Phone: [facility] 01-19-2025 10:27-0500 SaO2% (BldA) [Mass fraction] 91 % Abraham Pimentel MD Work Phone: [facility] 01-19-2025 10:27-0500 Systolic blood pressure 172 mm[Hg] Abraham Pimentel MD Work Phone: [facility] 11-03-2024 11:14-0500 Body height 182.9 cm Abraham Pimentel MD Work Phone: [facility] 11-03-2024 11:14-0500 Body mass index (BMI) [Ratio] 33.91 kg/m2 Abraham Pimentel MD Work Phone: [facility] 11-03-2024 11:14-0500 Body temperature 97.2 [degF] Abraham Pimentel MD Work Phone: [facility] 11-03-2024 11:14-0500 Body weight 113.4 kg Abraham Pimentel MD Work Phone: [facility] 11-03-2024 11:14-0500 Diastolic blood pressure 74 mm[Hg] Abraham Pimentel MD Work Phone: [facility] 11-03-2024 11:14-0500 Heart rate 63 /min Abraham Pimentel MD Work Phone: [facility] 11-03-2024 11:14-0500 SaO2% (BldA) [Mass fraction] 97 % Abraham Pimentel MD Work Phone: [facility] 11-03-2024 11:14-0500 Systolic blood pressure 116 mm[Hg] Abraham Pimentel MD Work Phone: [facility] 08-29-2024 13:01-0400 Diastolic blood pressure 60 mm[Hg] Suzi Moyer CONTRACT LAW SPECIALIST Work Phone: [facility] 08-29-2024 13:01-0400 Systolic blood pressure 102 mm[Hg] Suzi Moyer CONTRACT LAW SPECIALIST Work Phone: [facility] 08-29-2024 12:38-0400 Body height 182.9 cm Suzi Moyer CONTRACT LAW SPECIALIST Work Phone: [facility] 08-29-2024 12:38-0400 Heart rate 75 /min Suzi Moyer CONTRACT LAW SPECIALIST Work Phone: [facility] 08-29-2024 12:38-0400 SaO2% (BldA) [Mass fraction] 96 % Suzi Moyer CONTRACT LAW SPECIALIST Work Phone: [facility] 04-07-2024 10:32-0400 Diastolic blood pressure 66 mm[Hg] Abraham Pimentel MD Work Phone: [facility] 04-07-2024 10:32-0400 Heart rate 64 /min Abraham Pimentel MD Work Phone: [facility] 04-07-2024 10:32-0400 Systolic blood pressure 98 mm[Hg] Abraham Pimentel MD Work Phone: [facility] 04-07-2024 10:31-0400 Body height 182.9 cm Abraham Pimentel MD Work Phone: [facility] 04-07-2024 10:31-0400 Body mass index (BMI) [Ratio] 33.91 kg/m2 Abraham Pimentel MD Work Phone: [facility] 04-07-2024 10:31-0400 Body weight 113.4 kg Abraham Pimentel MD Work Phone: [facility] Comment on above: per patient 03-24-2024 09:09-0400 Body height 182.9 cm Abraham Pimentel MD Work Phone: [facility] 03-24-2024 09:09-0400 Body mass index (BMI) [Ratio] 31.19 kg/m2 Abraham Pimentel MD Work Phone: [facility] 03-24-2024 09:09-0400 Body weight 104.33 kg Abraham Pimentel MD Work Phone: [facility] 03-24-2024 09:09-0400 Diastolic blood pressure 70 mm[Hg] Abraham Pimentel MD Work Phone: [facility] 03-24-2024 09:09-0400 Heart rate 67 /min Abraham Pimentel MD Work Phone: [facility] 03-24-2024 09:09-0400 Systolic blood pressure 122 mm[Hg] Abraham Pimentel MD Work Phone: [facility] 01-06-2024 13:04-0500 Body height 182.9 cm Suzi Moyer CONTRACT LAW SPECIALIST Work Phone: [facility] 01-06-2024 13:04-0500 Diastolic blood pressure 80 mm[Hg] Suzi Moyer CONTRACT LAW SPECIALIST Work Phone: [facility] 01-06-2024 13:04-0500 Heart rate 71 /min Suzi João CRUZ Work Phone: [facility] 01-06-2024 13:04-0500 SaO2% (BldA) [Mass fraction] 93 % Suzi Galejen CRUZ Work Phone: [facility] 01-06-2024 13:04-0500 Systolic blood pressure 118 mm[Hg] Suziwilfred Moyer NP Work Phone: [facility] Encounters Encounter Date Encounter Type Care Provider Facility Start: 04-17-2025 End: 04-17-2025 Telephone encounter Ines Childs MD Work Phone: [facility] Start: 04-10-2025 End: 04-10-2025 Telephone encounter Ines Childs MD Work Phone: [facility] Start: 03-31-2025 End: 03-31-2025 Refill Suziwilfred Moyer NP Work Phone: [facility] Comment on above: Hypokalemia Start: 03-30-2025 End: 03-30-2025 ambulatory [facility] Start: 03-27-2025 End: 03-27-2025 Office outpatient visit 25 minutes Suzi Moyer NP Work Phone: [facility] Comment on above: Iron deficiency (Lenora yg Dx); Primary hypertension ([facility]/HCC); Vitamin D deficiency; 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; Gastroesophageal reflux disease, unspecified whether esophagitis present; EMMA treated with BiPAP; Incomplete paraplegia (CMS/HCC); Mixed hyperlipidemia (CMS/HCC); Dependence on supplemental oxygen; Neurogenic bladder; Recurrent major depressive disorder, in partial remission (HCC) (CMS/HCC); PAD (peripheral artery disease) ([facility]/HCC) Start: 03-27-2025 End: 03-27-2025 Bamboo flowsheet Suzi Moyer CONTRACT LAW SPECIALIST Work Phone: [facility] Start: 03-27-2025 End: 03-27-2025 Bamboo flowsheet Suzi Moyer NP Work Phone: [facility] Start: 03-27-2025 End: 03-27-2025 ambulatory SUZI GALEMarianAILEEN Not Available Start: 03-02-2025 End: 03-02-2025 Postop follow up visit related to original px Abraham Pimentel MD Work Phone: [facility] V[facility] Surgery Comment on above: Venous ulcer-leg syn drome, bilateral (CMS-HCC) (Primary Dx); PAD (peripheral artery disease) Start: 03-02-2025 End: 03-02-2025 ambulatory ABRAHAM PIMENTEL [facility] Start: 02-14-2025 End: 02-18-2025 Evaluation and management of inpatient Kena Lee MD Work Phone: [facility] Acute Comment on above: Surgical wound prese nt (Primary Dx); 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 Comment on above: ADMISSION ORDERS NEE D Start: 02-11-2025 End: 02-14-2025 Evaluation and management of inpatient [facility] Start: 01-30-2025 End: 01-30-2025 Telephone encounter Ines Childs MD Work Phone: [facility] Start: 01-30-2025 End: 02-01-2025 [facility] Start: 01-21-2025 [facility] Start: 01-20-2025 End: 01-26-2025 Evaluation and management of inpatient LIZ Gina CHAPMAN [facility] Start: 01-20-2025 End: 01-22-2025 Clinisync Result Encounter Generic External Data Provider [facility] External Department Unsolicited Start: 01-20-2025 End: 01-22-2025 Clinisync Result Encounter Generic External Data Provider [facility] External Department Unsolicited Start: 01-19-2025 End: 01-19-2025 ambulatory [facility] Start: 01-19-2025 End: 01-19-2025 Office outpatient visit 25 minutes Abraham Pimentel MD Work Phone: [facility] Comment on above: Venous ulcer-leg syn drome, bilateral (CMS-HCC) (Primary Dx); Critical 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 (CMS-HCC) Start: 01-04-2025 End: 01-05-2025 Refill Suzi Moyer NP Work Phone: [facility] Comment on above: Iron deficiency anem ia due to dietary causes Start: 01-02-2025 End: 01-02-2025 Telephone encounter Gayathri Palumbo [facility] Start: 11-22-2024 End: 11-22-2024 Refill Chanelle Fernandez RN Work Phone: [facility] Comment on above: Acute bilateral veno us stasis dermatitis; Gastroesophageal reflux disease, unspecified whether esophagitis present Start: 11-18-2024 End: 11-21-2024 Refill Chanelle Fernandez RN Work Phone: [facility] Comment on above: Hypokalemia Start: 11-17-2024 End: 11-17-2024 Refill Kerri Benz DO Work Phone: [facility] Comment on above: Primary hypertension (CMS/HCC) Start: 11-03-2024 End: 11-03-2024 Office outpatient visit 25 minutes Abraham Pimentel MD Work Phone: [facility] Comment on above: Critical limb ischem ia of right lower extremity with gangrene (CMS-HCC) (Primary Dx) Start: 09-14-2024 End: 09-14-2024 ambulatory [facility] Start: 08-30-2024 End: 08-30-2024 Orders Only Suzi Kampfer CONTRACT LAW SPECIALIST Work Phone: [facility] Comment on above: Hypokalemia Start: 08-29-2024 End: 08-29-2024 Bamboo flowsheet Suzi Moyer CONTRACT LAW SPECIALIST Work Phone: [facility] Start: 08-29-2024 End: 08-29-2024 Bamboo flowsheet Suzi Moyer CONTRACT LAW SPECIALIST Work Phone: [facility] Start: 08-29-2024 End: 08-29-2024 Office outpatient visit 25 minutes Suzi Moyer CONTRACT LAW SPECIALIST Work Phone: [facility] Comment on above: Hypokalemia (Primary Dx); Primary hypertension (CMS/HCC); 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; 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); Encounter for immunization; Venous ulcer-leg syndrome, bilateral (CMS/HCC) Start: 08-29-2024 End: 08-29-2024 ambulatory SUZI MOYER Not Available Start: 04-18-2024 End: 04-18-2024 Orders Only Wallace Calzada [facility] Comment on above: Critical limb ischem ia of right lower extremity with gangrene (CMS-HCC) (Primary Dx) Start: 04-07-2024 End: 04-07-2024 Office outpatient visit 15 minutes Abraham Pimentel MD Work Phone: [facility] Comment on above: Venous ulcer-leg syn drome, bilateral (CMS-HCC) (Primary Dx); Critical 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 (CMS-HCC) Start: 04-07-2024 End: 04-07-2024 ambulatory [facility] Start: 03-24-2024 End: 03-24-2024 ambulatory [facility] Start: 03-24-2024 End: 03-24-2024 Office outpatient visit 25 minutes Abraham Pimentel MD Work Phone: [facility] Comment on above: Venous ulcer-leg syn drome, bilateral (CMS-HCC) (Primary Dx); Critical 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 ([facility]) Start: 03-17-2024 End: 03-17-2024 Orders Only Meg Yin LPN [facility] Comment on above: PAD (peripheral denise ry disease) ([facility]) (Primary Dx) Start: 03-10-2024 End: 03-10-2024 Orders Only Wallace Calzada CMA [facility] Comment on above: Varicose veins of tuan th lower extremities with pain (Primary Dx) Start: 02-25-2024 End: 02-25-2024 Office outpatient new 45 minutes Abraham Pimentel MD Work Phone: [facility] Comment on above: Venous ulcer-leg syn drome, bilateral (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); Non-pressure chronic ulcer of other part of [...] 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) Start: 01-01-2024 Telephone encounter Suzi pierre CONTRACT LAW SPECIALIST Work Phone: [facility] Start: 04-07-2023 End: 04-08-2023 ambulatory PETER D [facility]IGHLANDER Facility:[facility] Start: 03-16-2023 End: 03-17-2023 ambulatory PETER D [facility]IGHLANDER Facility:[facility] Start: 02-13-2023 End: 02-14-2023 ambulatory PETER D [facility]AND[facility] Facility:[facility] Start: 01-12-2023 End: 01-13-[address] [facility] Start: 01-01-2023 End: 01-02-2023 ambulatory TATO YANG Facility:[facility] Start: 12-22-2022 End: 12-23-[address] [facility] Start: 11-17-2022 End: 11-18-[address] [facility] Start: 10-21-2022 End: 10-22-2022 ambulatory PETER D [facility]IG[facility]ANDER Facility:[facility] Start: 09-30-2022 End: 10-01-2022 ambulatory PETER D [facility]IG[facility]ANDER Facility:[facility] Start: 09-08-2022 End: 09-09-2022 ambulatory PETER D [facility]IG[facility]AND[facility] Facility:[facility] Start: 08-12-2022 End: 08-13-2022 ambulatory PETER D [facility] Facility:[facility] Start: 07-29-2022 End: 07-30-2022 ambulatory PETER D [facility]IGHLANDER Facility:[facility] Start: 07-18-2022 End: 07-19-[address] [facility] Start: 06-17-2022 End: 06-18-[address] [facility] Start: 05-26-2022 End: 05-27-2022 ambulatory PETER D [facility]IGHLANDER Facility:[facility] Start: 05-05-2022 End: 05-06-2022 ambulatory PETER D [facility] Facility:[facility] Procedures Date Procedure Procedure Detail Performing Clinician Start: 03-27-2025 Complete blood count with white cell differential, automated Suzi Moyer CONTRACT LAW SPECIALIST Work Phone: Start: 03-27-2025 Comprehensive metabo lic panel Suzi Moyer CONTRACT LAW SPECIALIST Work Phone: Start: 03-27-2025 IRON + TRANSFERRIN + TIBC Suzi Moyer CONTRACT LAW SPECIALIST Work Phone: Start: 02-18-2025 Comprehensive metabo lic panel Almaz Mcpherson MACHINE SHOP INSTRUCTOR-[employer] Work Phone: Start: 02-17-2025 Comprehensive metabo lic panel Almaz Mcpherson MACHINE SHOP INSTRUCTOR-[employer]ARM[employer] Work Phone: Start: 02-16-2025 Ct abdomen & pelvis w/contrast material Es Lee DO Work Phone: Start: 02-16-2025 Comprehensive metabo lic panel Almaz Mcpherson MACHINE [employer]OP INSTRUCTOR-[employer] Work Phone: Start: 02-15-2025 Assay of magnesium Kena Lee MD Work Phone: Start: 02-15-2025 End: 02-15-2025 Culture bacterial blood aerobic w/id isolates Es Fielddy DO Work Phone: Start: 02-15-2025 Comprehensive metabo lic panel Almaz Mcpherson MACHINE SHOP INSTRUCTOR-[employer] Work Phone: Start: 02-14-2025 Drug screen quantita tive vancomycin Almaz Mcpherson MACHINE SHOP INSTRUCTOR-[employer]ARM[employer] Work Phone: Start: 02-14-2025 PULSE OXIMETRY, SPOT An kandis Mcpherson MACHINE SHOP INSTRUCTOR-[employer]ARM[employer] Work Phone: Start: 02-14-2025 Adult depression screening assessment Yvonne Simpson Start: 01-20-2025 AEROBIC CULTURE Generic External Data Provider Start: 01-06-2024 Complete blood count with white cell differential, automated Suzi Moyer CONTRACT LAW SPECIALIST Work Phone: Start: 01-06-2024 End: 01-06-2024 Comprehensive metabolic panel Suzi Moyer CONTRACT LAW SPECIALIST Work Phone: Start: 01-06-2024 TSH W/REFLEX TO FT4 Praneeth Moyer CONTRACT LAW SPECIALIST Work Phone: Start: 06-08-2023 H/O: colostomy Colostomy status Cassandra Moyer CONTRACT LAW SPECIALIST Work Phone: H/O: colostomy 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) Suzi Moyer NP Work Phone: Plan of Treatment Date Care Activity Detail Author Start: 02-14-2026 Depression Screening Depression Scre ening [facility] Start: 02-14-2026 Tobacco Screening Tobacco Screening [facility] Start: 11-03-2025 Tobacco Screening Tobacco Screening [facility] Start: 09-25-2025 End: 09-25-2025 Patient encounter procedure 09/25/2025 12:30 PM EDT Office Visit [facility] [address] [place] [phone] Suiz Moyer NP [address] [place] [address] [facility] Start: 07-31-2025 Influenza vaccination Influenza Vacc ine [facility] Start: 04-20-2025 End: 04-20-2025 Patient encounter procedure [facility] Start: 04-07-2025 Adult BMI Screening Adult BMI Screen ing [facility] Start: 04-07-2025 Tobacco Screening Tobacco Screening [facility] Start: 03-27-2025 End: 03-27-2025 Patient encounter procedure 03/27/2025 2:30 PM EDT Office Visit [facility] [address] [place] [phone] Suzi Moyer NP [address] [place] [address] Arrived [facility] Comment on above: Arrived Start: 03-24-2025 Adult BMI Screening Adult BMI Screen ing [facility] Start: 03-24-2025 Tobacco Screening Tobacco Screening [facility] Start: 03-02-2025 End: 03-02-2025 Patient encounter procedure 03/02/2025 9:30 AM EDT Office Visit [facility] [address] [place] [phone] Abraham Pimentel MD [address], [address] [facility] Start: 02-28-2025 Adult BMI Screening Adult BMI Screen ing [facility] Start: 02-28-2025 Tobacco Screening Tobacco Screening [facility] Start: 02-21-2025 End: 02-17-2026 Basic metabolic 2000 panel - Serum or Plasma Basic Metabolic Panel Lab Routine Surgical wound present Expected: 02/21/2025, Expires: 02/17/[address] [facility] Work Phone: Comment on above: Expected: 02/21/2025 , Expires: 02/17/2026 Start: 02-21-2025 End: 02-21-2025 Patient encounter procedure 02/21/2025 1:00 PM EDT Office Visit [facility] [address] [place] [phone] Suzi Moyer NP [address] [place] [address] [facility] Start: 10-15-2024 Tobacco Screening Tobacco Screening [facility] Start: 08-30-2024 End: 08-30-2025 Basic [...] procedure 08/29/2024 1:00 PM EDT Office Visit [facility] [address] [place] [phone] Suzi Moyer NP [address] [place] [address] Arrived [facility] Comment on above: Arrived Start: 07-31-2024 Influenza vaccination N [facility] Start: 04-07-2024 End: 04-07-2024 Patient encounter procedure 04/07/2024 10:50 AM EDT Office Visit [facility] [address] [place] [address] Abraham Pimentel MD [address], [address] [address] [facility] Start: 04-06-2024 End: 04-06-2024 Patient encounter procedure 04/06/2024 11:30 AM EDT Office Visit [facility] [address] [place] [address] Pilar Merritt, MACHINE SHOP INSTRUCTOR-[facility] [address] [place] [address] [facility] Start: 03-24-2024 End: 03-24-2024 Patient encounter procedure 03/24/2024 8:40 AM EDT Office Visit [facility] [address] [place] [address] Abraham Pimentel MD [address], [address] [address] [facility] Start: 03-17-2024 End: 03-17-2025 US.doppler Extremity arteries - bilateral for physiologic artery study Vas art doppler lwr bilat mult lev/PVR Vascular Ultrasound Routine PAD (peripheral artery disease) ([facility]) Expected: 03/17/2024, Expires: 03/17/2025 [facility] Work Phone: Comment on above: Expected: 03/17/2024 , Expires: 03/17/2025 Start: 03-10-2024 End: 03-10-2025 US.doppler Lower extremity vein - bilateral Vas venous duplex insufficiency lwr bi Vascular Ultrasound Routine Varicose veins of both lower extremities with pain Expected: 03/10/2024, Expires: 03/10/2025 [facility] Work Phone: Comment on above: Expected: 03/10/2024 [...] [facility] [address] [place] [address] Abraham Pimentel MD [address], [address] [address] [facility] Start: 02-23-2024 End: 02-23-2024 Patient encounter procedure 02/23/2024 1:00 PM EDT Office Visit [facility] [address] [place] [address] Suzi Moyer NP [address] [place] [address] [facility] Start: 02-11-2024 End: 02-11-2024 Patient encounter procedure 02/11/2024 2:50 PM EDT [facility] [address] [place] [address] Abraham Pimentel MD [address], [address] [address] [facility] Start: 07-31-2023 COVID-19 Vaccine ( season) COVID-19 Vaccine () [facility] [employer] Start: 07-17-2023 Adult BMI Screening [facility] Start: 2012 Fall Risk Screening Fall Risk Screen ing [facility] Start: 1966 DTaP,Tdap and Td Vaccines (1 - Tdap) DTaP,Tdap and Td Vaccines (1 - Tdap) [facility]: 1965 Adult BMI Follow Up Plan Adult BMI Follow Up Plan [facility] Start: 1959 Depression Screening Depression Scre [facility]ing [facility] Start: 1947 Medicare Annual Well ness Visit Medicare Annual Wellness Visit [facility] AEROBIC CULTURE AEROBIC CULTURE Lab Routine 01/20/2025 11:25 AM EST [facility] Bacteria identified in Blood by Aerobe culture [facility] Work Phone: CBC W Auto Different ial panel - Blood CBC auto differential Lab Routine Lab max of 3 days, Daily, for lab use only until discontinued starting 02/15/2025, 4 completed [employer] Comment on above: Lab max of 3 days, D aily, for lab use only until discontinued starting 02/15/2025, 4 completed Comprehensive metabo lic 2000 panel - Serum or Plasma Comprehensive metabolic panel Lab Routine Lab max of 3 days, Daily, for lab use only until discontinued starting 02/15/2025, 4 completed [employer] Comment on above: Lab max of 3 days, D aily, for lab use only until discontinued starting 02/15/2025, 4 completed End: 02-14-2025 Lower resp/sputum culture inc gram stain: Lower resp/sputum culture inc gram stain: Microbiology Routine Once for 1 Occurrences starting 02/14/2025 until 02/14/2025 [employer] Work Phone: Comment on above: Once for 1 Occurrenc es starting 02/14/2025 until 02/14/2025 Magnesium [Mass/volu me] in Serum or Plasma Magnesium Lab Routine Lab max of 3 days, Daily, for lab use only until discontinued starting 02/15/2025, 4 completed [facility] Comment on above: Lab max of 3 days, D aily, for lab use only until discontinued starting 02/15/2025, 4 completed Oxygen Therapy - Maintain SpO2: 90%; *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 Guidelines for O2: Yes; Document: [email or web address] c\EPIC_Reference\Orders\ Respiratory Care Guidelines\CPG Oxygen 2022.pdf Oxygen Therapy - Maintain SpO2: 90%; *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 Guidelines for O2: Yes; Document: \[email or web address]\ep ic\EPIC_Reference\Order s\Respiratory Care Guidelines\CPG Oxygen 2022.pdf Respiratory Care Routine As Needed until discontinued starting 02/14/2025 [facility] Comment on above: As Needed until disc ontinued starting 02/14/2025 End: 02-14-2025 Vancomycin, random Vancomycin, random Lab Routine Once for 1 Occurrences starting 02/14/2025 until 02/14/2025 [facility] Comment on above: Once for 1 Occurrenc es starting 02/14/2025 until 02/14/2025 Immunizations Immunization Date Immunization Notes Care Provider Celio hameed 02-10-2025 tuberculin skin test ; unspecified formulation [facility] 02-01-2025 tuberculin skin test ; unspecified formulation [facility] 08-29-2024 influenza, high dose seasonal, preservative-free Suzi Moyer [employer] Work Phone: [facility] 08-29-2024 Pfizer Purple Cap SARS-CoV-2 Vaccination Suzi Moyer [employer] Work Phone: [facility] 08-29-2024 SARS-COV-2 (COVID-19 ) vaccine, mRNA, spike protein, LNP, PF, ariana-sucrose, 30 mcg/0.3 mL Suzi Kampfer [employer]IST Work Phone: [facility] 08-29-2024 influenza virus vaccine, unspecified formulation Abraham Pimentel MD Work Phone: [facility] 08-28-2023 zoster vaccine recombinant Suzi Kampfer [employer]IST Work Phone: [facility] 08-26-2023 Influenza, High-dose Seasonal, Quadrivalent, Preservative Free Suzi Kampfer [employer] LAW [employer]IST Work Phone: [facility] 08-26-2023 influenza virus vaccine, unspecified formulation Wallace [facility] 05-27-2023 zoster vaccine recombinant Yvonne [facility] 08-27-2022 influenza, high dose seasonal, preservative-free Suzi Kampfer [employer] LAW [employer]IST Work Phone: [facility] 08-27-2022 Influenza, High-dose Seasonal, Quadrivalent, Preservative Free Suzi Kampfer [employer] LAW SPECIALIST Work Phone: [facility] 11-20-2021 Pfizer Purple Cap SARS-CoV-2 Vaccination Suzi Kampfer CONTRACT LAW SPECIALIST Work Phone: [facility] 08-27-2021 influenza, high dose seasonal, preservative-free Suzi Kampfer [employer] LAW SPECIALIST Work Phone: [facility] 08-27-2021 Influenza, High-dose Seasonal, Quadrivalent, Preservative Free Suzi Kampfer CONTRACT LAW SPECIALIST Work Phone: [facility] 02-06-2021 COVID-19 Vaccine, vector-nr, rS-Ad26, PF, 0.5mL Hannah Lafountain [facility] 02-06-2021 Pfizer Purple Cap SARS-CoV-2 Vaccination Suzi Kampfer CONTRACT LAW SPECIALIST Work Phone: [facility] 11-22-2020 influenza, injectabl e, quadrivalent, contains preservative Suzi Kampfer CONTRACT LAW SPECIALIST Work Phone: [facility] 11-21-2020 influenza, high dose seasonal, preservative-free Yvonne Simpson [facility] 09-26-2019 influenza, high dose seasonal, preservative-free Yvonne Simpson [facility] 09-26-2019 Influenza, High-dose Seasonal, Quadrivalent, Preservative Free Suzi Kampfer CONTRACT LAW SPECIALIST Work Phone: [facility] 09-06-2018 influenza, high dose seasonal, preservative-free Yvonne Simpson [facility] 09-06-2018 Influenza, High-dose Seasonal, Quadrivalent, Preservative Free Suzi Kampfer CONTRACT LAW SPECIALIST Work Phone: [facility] Work Phone: 09-21-2017 Influenza, High-dose Seasonal, Quadrivalent, Preservative Free Suzi Kampfer CONTRACT LAW SPECIALIST Work Phone: [facility] 09-15-2016 Influenza, High-dose Seasonal, Quadrivalent, Preservative Free Suzi Kampfer CONTRACT LAW SPECIALIST Work Phone: [facility] 05-01-2016 pneumococcal polysaccharide vaccine, 23 valent Suzi Kampfer CONTRACT LAW SPECIALIST Work Phone: [facility] 09-10-2015 pneumococcal conjuga te vaccine, 13 valent Suzi Kampfer CONTRACT LAW SPECIALIST Work Phone: [facility] 11-30-2005 pneumococcal polysaccharide vaccine, 23 valent Suzi Kampfer [employer] LAW SPECIALIST Work Phone: [facility] Payers Date Payer Category Payer Medicare (Managed Care) [facility] [id number] 2017 Medicare [id number] 2017 Medicare HMO ANTH MEDICARE [id number] 1959 Unknown [id number] 1945 Unknown [id number] 2.16.840.1.057014.3.579. 2.59 1947 Unknown [id number] 2.16.840.1.387037.3.579. 2.59 1947 Unknown [id number] 2.16.840.1.322746.3.579. 2.59 1947 Unknown [id number] 2.16.840.1.930940.3.579. 2.59 1947 Unknown [id number] 2.16.840.1.748287.3.579. 2.593 1947 Unknown [id number] 2.16.840.1.429281.3.579. 2.59 1947 Unknown [id number] 2.16.840.1.014008.3.579. 2.593 1947 Unknown [id number] 2.16.840.1.245901.3.579. 2.59 1947 Unknown [id number] 2.16.840.1.094642.3.579. 2.59 1947 Unknown [id number] 2.16.840.1.173579.3.579. 2.59 1947 Unknown [id number] 2.16.840.1.913517.3.579. 2.593 1947 Unknown [id number] 2.16.840.1.760336.3.579. 2.593 1947 Unknown [id number] 2.16.840.1.982665.3.579. 2.593 1947 Unknown [id number] 2.16.840.1.841738.3.579. 2.593 1947 Unknown [id number] 2.16.840.1.087450.3.579. 2.593 1947 Unknown [id number] 2.16.840.1.840251.3.579. 2.593 1947 Unknown [id number] 2.16.840.1.796357.3.579. 2.1285 1947 Unknown [id number] 2.16840.1.190064.3.579. 2.128 1947 Unknown [id number] 2.16840.1.626168.3.579. 2.128 1947 Unknown [id number] 2.16840.1.860810.3.579. 2.1285 1947 Unknown [id number] 2.16840.1.300724.3.579. 2.1285 1947 Unknown [id number] 2.16840.1.231302.3.579. 2.1285 1947 Unknown [id number] 2.16840.1.221664.3.579. 2.128 1947 Unknown [id number] 2.16840.1.777742.3.579. 2.1259 1947 Unknown [id number] 2.16.840.1.230447.3.579. 2.1259 1947 Unknown [id number] 2.16840.1.868625.3.579. 2.1286 1947 Unknown [id number] 2.16.840.1.992453.3.579. 2.1286 1947 Unknown [id number] 2.16.840.1.048210.3.579. 2.1286 1947 Unknown [id number] 2.16.840.1.854609.3.579. 2.1286 Social History Date Type Detail Facility Start: 08-26-2023 End: 02-29-2024 Tobacco smoking status PRIS Never smoked tobacco [facility] Start: 08-26-2023 End: 02-29-2024 Tobacco use and exposure Smokeless tobacco non-user [facility] Start: 12-21-2023 End: 03-27-2025 Alcohol intake Ex-drinker (finding) [facility] Start: 08-26-2023 End: 01-01-2024 History of Social function [facility] Start: 08-26-2023 End: 01-01-2024 Tobacco use panel [facility] Start: 08-25-2023 Alcohol Comment caffeine: 1-2 cups per day [facility] Start: 1945 Sex Assigned At Not on file [facility] Within the last year , have you been afraid of your partner or ex-partner? Patient refused [facility] Are you now , , , , never or living with a partner? [facility] How often to you hav e a drink containing alcohol? Never [facility] The food that (I/we) bought just didn't last, and (I/we) didn't have money to get more. DK or Refused [facility] Start: 11-03-2024 End: 03-02-2025 Alcoholic beverage intake Current drinker of alcohol (finding) [facility] Start: 11-03-2016 Alcohol Comment occasionally [facility] Start: 07-05-2015 Sex Male (finding) [facility] Has the [employer], or water [employer] threatened to shut off services in your home in past 12Mo No [facility] How often to you hav e a drink containing alcohol? Monthly or less [facility] How many standard drinks containing alcohol do you have on a typical day? 1 or [address] [facility] How hard is it for y ou to pay for the very basics like food, housing, medical care, and heating Not very hard [facility] Do you feel stress - tense, restless, nervous, or anxious, or unable to sleep at night because your mind is troubled all the time - these days [OSQ] To some extent [facility] Goals Date Patient Goal Desired Activity /State Personal health goal Comment on above: Formatting of this n ote might be different from the original. Evaluation of progress towards goal: Safe dc transition from hospital to home with resumption of HHC. Personal health goal Comment on above: Formatting of this n ote might be different from the original. Evaluation of progress towards goal: return to [place] for continued therapy Functional Status Date Assessment Result Facility [facility] Mental Status Date Assessment Result Facility [facility] Work Phone: [facility] Work Phone: Clinical Notes 05-27-2022 to 04-17-2025 Telephone Encounter - Jose Morris - 04/17/2025 9:37 AM EDTTelephone Encounter - Jose Morris - 04/17/2025 9:37 AM EDTTelephone Encounter - Yvrose Bruce - 04/10/2025 12:55 PM EDTDischarge Instructions Note Date & Type Note Facility 04-17-2025 Telephone encounter Note Adult Protective Services called - asking for a script/order for a Iris lift . Agustin is having trouble getting in and out of bed . Having to call EMS to help. Any questions call Lois at [phone] [facility] 04-17-2025 Miscellaneous Notes Adult Protective Services called - asking for a script/order for a Iris lift . Agustin is having trouble getting in and out of bed . Having to call EMS to help. Any questions call Lois at [phone] documented in this encounter [facility] 04-10-2025 Telephone encounter Note Pt was seen today wound care done today pt has new wounds -2 bi lat buttocks and coccyx Can we have orders for soap and water cleanse, apply tri ad cream, sacrum foam dressing 3x weekly Fax is [phone] [facility] 04-10-2025 Miscellaneous Notes Pt was seen today wound care done today pt has new wounds -2 bi lat buttocks and coccyx Can we have orders for soap and water cleanse, apply tri ad cream, sacrum foam dressing 3x weekly Fax is [phone] documented in this encounter [facility] 03-27-2025 History of Present illness Narrative Images from the original note were not included. Kj Lei is a 79 y.o. male presents with [...] his bipap. He is not able to get in and out of the bed without significant [...] Flowsheet Row Patient Outreach from 03/14/2025 in [facility] with Chanelle Fernandez RN Hospital Information ED, Hospital or Shelter Facility Discharge? 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 02/11-02/14 admitted [facility] dt sepsis with AKF, he was transferred out to [facility] 02/14-02/17 dt sepsis and then dced to [facility]. Discharge Date 03/11/25 Discharged To: Home Setting Discharge Hospital [facility] Nursing [facility] Admission Date 02/17/25 Medications Discharge medications [...] yes What is the home health agency? [facility] Has home health visited the patient within [...] longer follows with pulmonology Incomplete paraplegia (CMS/HCC) -would benefit from wheelchair in the home to assist in mobility. Mixed hyperlipidemia (CMS/HCC) - atorvastatin (Lipitor) 40 [...] and wound care documented in this encounter [facility] 02-18-2025 Plan of care note Problem: Pain Goal: Patient goal is pain score less than 4, able to rest, and participant in treatment plan as appropriate Description: INTERVENTIONS: 1. Encourage patient or legal healthcare representative to report early pain and ask for pain medicine when needed 2. Assess pain using appropriate pain scale and include the scale used when documenting 3. Administer analgesics based on type and severity of pain and evaluate response within appropriate time frame 4. Implement non-pharmacological measures as appropriate and evaluate response 5. Consider cultural and social influences on pain and pain management 6. Notify LIP if interventions ineffective or patient reports new pain 7. Monitor vital signs including pulse ox 8. Reassess pain per policy 9. Teach patient or legal healthcare representative interventions for comforting Outcome: Progressing Note: Evaluation of progress towards goal: PRN pain medication if needed Problem: Safety Goal: Patient will be injury free during hospitalization Description: INTERVENTIONS: 1. Assess patient's risk for falls and implement fall prevention plan of care per policy 2. Provide and maintain a safe environment 3. Proper use of double Identifiers 4. Medication administration using the 5 rights 5. Hand hygiene 6. Specimens are labeled at the bedside 7. Instruct patient/ patient healthcare representative about use of safety devices 8. Include patient/ patient healthcare representative in decisions related to safety Outcome: Progressing Note: Evaluation of progress towards goal: Call light within reach, non-slip socks on when ambulating Problem: Infection Goal: Absence of infection during hospitalization Description: INTERVENTIONS 1. Assess and monitor for signs and symptoms of infection. 2. Monitor lab/diagnostic results. 3. Monitor all insertion sites i.e., indwelling lines, tubes and drains. 5. Administer medications as ordered. 6. Instruct and encourage patient and family to use good hand hygiene technique. 7. Identify and instruct patient/patient healthcare representative in use of appropriate isolation precautions for identified infection/symptoms. 8. Provide and discuss with patient/patient healthcare representative on educational MDRO sheet. 9. Encourage and monitor nutritional status daily and consult enterprise infrastructure architect if indicated. Outcome: Progressing Note: Evaluation of progress towards goal: Will continue to monitor for signs and symptoms of infection Problem: Knowledge Deficit Goal: Patient/patient healthcare representative demonstrates understanding of disease process, treatment plan, medications, and discharge instructions Description: INTERVENTIONS 1. Complete learning assessment and assess knowledge base 2. Provide teaching at level of understanding 3. Provide teaching via preferred learning method(s) Outcome: Progressing Note: Evaluation of progress towards goal: Will continue to address any of patient or families questions or concerns Problem: Discharge Planning Goal: Discharge to post-acute care, other facility, or home with appropriate resources Description: Patient's goal is: SNF INTERVENTIONS 1. Conduct assessment to determine patient/family and health care team treatment goals, and need for post-acute services based on payer coverage, community resources, and patient preferences, and barriers to discharge 2. Coordinate with Social work, Care Navigation, and Utilization Review to arrange appropriate level of services according to patient's needs based on patient preference and payer coverage in collaboration with the physician and health care team 3. Address psychosocial, clinical, and financial barriers to discharge as identified in assessment in conjunction with the patient/family and health care team 4. Consult appropriate ancillary services (i.e.. PT/OT/ST, etc) as needed 5. Communicate with and update the patient/family, physician, and health care team regarding progress on the discharge plan 6. Identify discharge learning needs (meds, wound care, etc). 7. Arrange for needed discharge transportation as appropriate Outcome: Progressing Note: Evaluation of progress towards goal: Will discharge patient appropriately [facility] Miscellaneous Notes Problem: Pain Goal: Patient goal is pain score less than 4, able to rest, and participant in treatment plan as appropriate Description: INTERVENTIONS: 1. Encourage patient or legal healthcare representative to report early pain and ask for pain medicine when needed 2. Assess pain using appropriate pain scale and include the scale used when documenting 3. Administer analgesics based on type and severity of pain and evaluate response within appropriate time frame 4. Implement non-pharmacological measures as appropriate and evaluate response 5. Consider cultural and social influences on pain and pain management 6. Notify LIP if interventions ineffective or patient reports new pain 7. Monitor vital signs including pulse ox 8. Reassess pain per policy 9. Teach patient or legal healthcare representative interventions for comforting Outcome: Progressing Note: Evaluation of progress towards goal: PRN pain medication if needed Problem: Safety Goal: Patient will be injury free during hospitalization Description: INTERVENTIONS: 1. Assess patient's risk for falls and implement fall prevention plan of care per policy 2. Provide and maintain a safe environment 3. Proper use of double Identifiers 4. Medication administration using the 5 rights 5. Hand hygiene 6. Specimens are labeled at the bedside 7. Instruct patient/ patient healthcare representative about use of safety devices 8. Include patient/ patient healthcare representative in decisions related to safety Outcome: Progressing Note: Evaluation of progress towards goal: Call light within reach, non-slip socks on when ambulating Problem: Infection Goal: Absence of infection during hospitalization Description: INTERVENTIONS 1. Assess and monitor for signs and symptoms of infection. 2. Monitor lab/diagnostic results. 3. Monitor all insertion sites i.e., indwelling lines, tubes and drains. 5. Administer medications as ordered. 6. Instruct and encourage patient and family to use good hand hygiene technique. 7. Identify and instruct patient/patient healthcare representative in use of appropriate isolation precautions for identified infection/symptoms. 8. Provide and discuss with patient/patient healthcare representative on educational MDRO sheet. 9. Encourage and monitor nutritional status daily and consult enterprise infrastructure architect if indicated. Outcome: Progressing Note: Evaluation of progress towards goal: Will continue to monitor for signs and symptoms of infection Problem: Knowledge Deficit Goal: Patient/patient healthcare representative demonstrates understanding of disease process, treatment plan, medications, and discharge instructions Description: INTERVENTIONS 1. Complete learning assessment and assess knowledge base 2. Provide teaching at level of understanding 3. Provide teaching via preferred learning method(s) Outcome: Progressing Note: Evaluation of progress towards goal: Will continue to address any of patient or families questions or concerns Problem: Discharge Planning Goal: Discharge to post-acute care, other facility, or home with appropriate resources Description: Patient's goal is: SNF INTERVENTIONS 1. Conduct assessment to determine patient/family and health care team treatment goals, and need for post-acute services based on payer coverage, community resources, and patient preferences, and barriers to discharge 2. Coordinate with Social work, Care Navigation, and Utilization Review to arrange appropriate level of services according to patient's needs based on patient preference and payer coverage in collaboration with the physician and health care team 3. Address psychosocial, clinical, and financial barriers to discharge as identified in assessment in conjunction with the patient/family and health care team 4. Consult appropriate ancillary services (i.e.. PT/OT/ST, etc) as needed 5. Communicate with and update the patient/family, physician, and health care team regarding progress on the discharge plan 6. Identify discharge learning needs (meds, wound care, etc). 7. Arrange for needed discharge transportation as appropriate Outcome: Progressing Note: Evaluation of progress towards goal: Will discharge patient appropriately Problem: Pain Goal: Patient goal is pain score less than 4, able to rest, and participant in treatment plan as appropriate Description: INTERVENTIONS: 1. Encourage patient or legal healthcare representative to report early pain and ask for pain medicine when needed 2. Assess pain using appropriate pain scale and include the scale used when documenting 3. Administer analgesics based on type and severity of pain and evaluate response within appropriate time frame 4. Implement non-pharmacological measures as appropriate and evaluate response 5. Consider cultural and social influences on pain and pain management 6. Notify LIP if interventions ineffective or patient reports new pain 7. Monitor vital signs including pulse ox, end-tidal CO2 based on pain intervention 8. Reassess pain per policy 9. Teach patient or legal healthcare representative interventions for comforting Outcome: Progressing Note: Evaluation of progress towards goal: 0-10 pain scale used, other pain scale methods used as needed, patient pain is being managed through pharmacological and non pharmacological methods. Problem: Safety Goal: Patient will be injury free during hospitalization Description: INTERVENTIONS: 1. Assess patient's risk for falls and implement fall prevention plan of care per policy 2. Provide and maintain a safe environment 3. Proper use of double Identifiers 4. Medication administration using the 5 rights 5. Hand hygiene 6. Specimens are labeled at the bedside 7. Instruct patient/ patient healthcare representative about use of safety devices 8. Include patient/ patient healthcare representative in decisions related to safety Outcome: Progressing Note: Evaluation of progress towards goal: Call light within reach, bed locked and left at the lowest setting, adequate lighting in room, floor remains clear of tripping hazards. Problem: Infection Goal: Absence of infection during hospitalization Description: INTERVENTIONS 1. Assess and monitor for signs and symptoms of infection. 2. Monitor lab/diagnostic results. 3. Monitor all insertion sites i.e., indwelling lines, tubes and drains. 4. Monitor endotracheal (as able) and nasal secretions for changes in amount and color. 5. Administer medications as ordered. 6. Instruct and encourage patient and family to use good hand hygiene technique. 7. Identify and instruct patient/patient healthcare representative in use of appropriate isolation precautions for identified infection/symptoms. 8. Provide and discuss with patient/patient healthcare representative on educational MDRO sheet. 9. Encourage and monitor nutritional status daily and consult enterprise infrastructure architect if indicated. 10. Implement neutropenic guidelines as needed. Outcome: Progressing Note: Evaluation of progress towards goal: Monitor labs and vital signs. Patient afebrile at this time. Problem: Knowledge Deficit Goal: Patient/patient healthcare representative demonstrates understanding of disease process, treatment plan, medications, and discharge instructions Description: INTERVENTIONS 1. Complete learning assessment and assess knowledge base 2. Provide teaching at level of understanding 3. Provide teaching via preferred learning method(s) Outcome: Progressing Note: Evaluation of progress towards goal: Patient verbalizes/demonstrates understanding of disease process, treatment plan, medications, and discharge planning. Problem: Discharge Planning Goal: Discharge to post-acute care, other facility, or home with appropriate resources Description: Patient's goal is: SNF INTERVENTIONS 1. Conduct assessment to determine patient/family and health care team treatment goals, and need for post-acute services based on payer coverage, community resources, and patient preferences, and barriers to discharge 2. Coordinate with Social work, Care Navigation, and Utilization Review to arrange appropriate level of services according to patient's needs based on patient preference and payer coverage in collaboration with the physician and health care team 3. Address psychosocial, clinical, and financial barriers to discharge as identified in assessment in conjunction with the patient/family and health care team 4. Consult appropriate ancillary services (i.e.. PT/OT/ST, etc) as needed 5. Communicate with and update the patient/family, physician, and health care team regarding progress on the discharge plan 6. Identify discharge learning needs (meds, wound care, etc). 7. Arrange for needed discharge transportation as appropriate Outcome: Progressing Note: Evaluation of progress towards goal: PT awaiting discharge plan. Problem: Moderate - High Risk Fall Score Description: Mejia Fall Score of =/> 25 or indicated by [facility] Assessment Goal: Patient should be free from fall Description: Interventions: 1. [place] to environment 2. Hourly rounds addressing the 4 P's (Pain, Positioning, Possessions, Potty) 3. Clear area of hazards (spills, clutter, electrical cords, unnecessary equipment) 4. Place equipment (bed & TV controls, call light, phone, urinal) within reach 5. Encourage patient to wear glasses and hearing aides as appropriate 6. Maintain bed in lowest position 7. Lock wheels on bed/wheelchair 8. Provide adequate lighting, including night light 9. Assess need for additional bedding, food/fluids, pain med's prior to sleep/routinely 10. Provide gripper slippers or personal non-skid footwear 11. Teach patient and patient healthcare representative to maintain environment for safety and engage in all aspects of fall prevention program 12. Remind patient to call for help before getting out of bed 13. Initiate bed/chair/exit alarms supportive devices as appropriate, (chair wedge, no-skid floor mat, raised edge mattress, hip protectors) 14. Locate patient bed assignment for optimal visualization 15. Evaluate and identify Safe Patient Handling Equipment needs 16. Provide supervision when out of bed or chair 17. Utilize gait belt as needed to assist with ambulation 18. Place adaptive equipment (cane, walker) within reach 19. Request patient healthcare representative bring adaptive equipment/mobility aids from home or obtain and provide as needed 20. Consult pharmacy regarding effects of med's affecting mobility, cognition, and alternatives 21. Obtain physician order for PT if risk factors associated with mobility are present 22. Obtain physician order for OT as appropriate 23. Utilize diversional activities 24. Educate patient and patient healthcare representative how to maintain a safe environment during visitation times (notify nurse prior to leaving bedside) 25. Consider appropriateness of medical or non-medical language specialist 26. Set up voiding schedule as appropriate (every 2 hours) Outcome: Progressing Note: Evaluation of progress towards goal: Adaptive devices within reach; Adequate lighting/nightlight; Area clear of hazards; Assess personal needs before sleep; Bed/low position; Bed or chair locked; Call light within reach; Fall risk ID band; Gait belt; Reinforce fall risk limits; Nonslip footwear; Patient fall risk education reinforced; [place] to environment; Personal items within reach; Side rails up x2 Problem: Potential for Compromised Skin Integrity Goal: Skin integrity is maintained or improved Description: Patient's goal is: INTERVENTIONS 1. Perform initial skin assessment on admission and as needed 2. Turn patient every 2 hours and PRN 3. Relieve pressure to bony prominences 4. Avoid shearing 5. Keep skin clean and dry 6. Alternate a full bath with partial baths for elderly 7. Apply lotion/moisturizer on skin 8. Monitor patient's hygiene practices 9. Float heels 10. Collaborate with interdisciplinary team and initiate plans and interventions as needed Outcome: Progressing Note: Evaluation of progress towards goal: PT is encouraged/helped changing positions every 2 hours, pillow support, bony prominences padded as needed. Goal: Patient's nutritional intake is adequate Description: Patient's goal is: maintain nutritional intake INTERVENTIONS 1. Assess and monitor food intake and supplements, patient food preferences, nausea, vomiting, labs, oral cavity (gums, teeth, tongue, mucosa), proper denture fit, and cultural beliefs 2. Monitor for signs of hypoglycemia and hyperglycemia 3. Collaborate with interdisciplinary team and initiate plan and interventions as ordered 4. Monitor patient's weight 5. Assist patient with meals/food selection 6. Assist patient with eating 7. Allow adequate time for meals 8. Provide pleasant environment during mealtime 9. Increase social contact during mealtimes 10. Plan activities to conserve energy 11. Encourage/perform oral hygiene as appropriate 12. Encourage patient to take dietary supplement as ordered 13. Collaborate with clinical enterprise infrastructure architect 14. Include patient/ patient's healthcare representative in decisions related to nutrition Outcome: Progressing Note: Evaluation of progress towards goal: PT is on regular diet and appropriate for room service, pt appetite is good. Problem: Urinary Incontinence Goal: Perineal skin integrity is maintained or improved Description: INTERVENTIONS 1. Assess genitourinary system, perineal skin, labs (urinalysis), and history of incontinence to include past management, aggravating, and alleviating factors 2. Keep skin clean and dry 3. Apply skin protectant 4. Develop skin care regimen 5. Provide privacy when changing patients incontinence device to maintain their dignity 6. Consider placing an indwelling catheter 7. Collaborate with interdisciplinary team and initiate plans and interventions as needed Outcome: Progressing Note: Evaluation of progress towards goal: Pt skin is kept dry with brief/chux pad changes as needed. Antifungal powder used as needed. Problem: Genitourinary - Adult Goal: Absence of urinary retention Description: INTERVENTIONS: 1. Assess patient s ability to void and empty bladder 2. Monitor intake/output and perform bladder scan as ordered 3. Place urinary catheter per LIP order if needed 4. Discuss with LIP medications to alleviate retention as needed 5. Discuss and document need for catheter daily 6. Prevention of urinary infection per policy Outcome: Progressing Note: Evaluation of progress towards goal: Problem: Metabolic/Fluid and Electrolytes - Adult Goal: Hemodynamic stability and optimal renal function maintained Description: Patient's goal is: INTERVENTIONS 1. Monitor labs and assess for signs and symptoms of volume excess or deficit 2. Monitor intake, output and patient weight 3. Monitor urine specific gravity, serum osmolarity and serum sodium as indicated or ordered 4. Monitor response to interventions for patient's volume status, including labs, urine output, blood pressure (other measures as available) 5. Encourage oral intake as appropriate 6. Instruct patient on fluid and nutrition restrictions as appropriate Outcome: Progressing Note: Evaluation of progress towards goal: maintain fluid and electrolytes Problem: Skin/Tissue Integrity - Adult Goal: Incisions, wounds, or drain sites healing without S/S of infection Description: INTERVENTIONS 1. ADMISSION & EVERY SHIFT: Assess and document risk factors for pressure ulcer development utilizing the David/David Q scale 2. Assess and document skin integrity 3. Assess and document dressing/incision, wound bed, drain sites and surrounding tissue 4. Implement wound care per orders 5. Initiate isolation precautions as appropriate 6. Initiate high risk precautions Outcome: Progressing Note: Evaluation of progress towards goal: PT is encouraged/helped changing positions every 2 hours, pillow support, bony prominences padded as needed. DISCHARGE PLANNING NOTE Prior Auth approved for admission to : [facility]/ [place], [place] (P# ; F# ) Approval # [id number] Valid for Dates: 02/17/2025- 02/23/2025 DISCHARGE PLANNING NOTE Discharge to [place] pending insurance auth. S transport. [facility] submitted auth this AM 02/17. SW will continue to follow for additional needs - EDUARDO GALVAN 02/17/25 10:23 AM informed auth was approved - EDUARDO GALVAN 02/17/25 3:02 PM 7:30 transport scheduled to [place]. Facility informed. Family informed. Patient informed and agreeable. Will send [facility] HENS when able - EDUARDO GALVAN 02/17/25 3:08 PM CRF, HENS sent to [place] - EDUARDO GALVAN 02/17/25 4:00 PM DISCHARGE PLANNING NOTE Prior auth submitted to: [employer] Via: [employer] On behalf of : [facility]/ [facility], [place], [place] (P# ; F# ) Ref # [id number] Problem: Pain Goal: Patient goal is pain score less than 4, able to rest, and participant in treatment plan as appropriate Description: INTERVENTIONS: 1. Encourage patient or legal healthcare representative to report early pain and ask for pain medicine when needed 2. Assess pain using appropriate pain scale and include the scale used when documenting 3. Administer analgesics based on type and severity of pain and evaluate response within appropriate time frame 4. Implement non-pharmacological measures as appropriate and evaluate response 5. Consider cultural and social influences on pain and pain management 6. Notify LIP if interventions ineffective or patient reports new pain 7. Monitor vital signs including pulse ox, end-tidal CO2 based on pain intervention 8. Reassess pain per policy 9. Teach patient or legal healthcare representative interventions for comforting Outcome: Progressing Note: Evaluation of progress towards goal: Pain meds as needed Problem: Discharge Planning Goal: Discharge to post-acute care, other facility, or home with appropriate resources Description: Patient's goal is: INTERVENTIONS 1. Conduct assessment to determine patient/family and health care team treatment goals, and need for post-acute services based on payer coverage, community resources, and patient preferences, and barriers to discharge 2. Coordinate with Social work, Care Navigation, and Utilization Review to arrange appropriate level of services according to patient's needs based on patient preference and payer coverage in collaboration with the physician and health care team 3. Address psychosocial, clinical, and financial barriers to discharge as identified in assessment in conjunction with the patient/family and health care team 4. Consult appropriate ancillary services (i.e.. PT/OT/ST, etc) as needed 5. Communicate with and update the patient/family, physician, and health care team regarding progress on the discharge plan 6. Identify discharge learning needs (meds, wound care, etc). 7. Arrange for needed discharge transportation as appropriate Outcome: Progressing Note: Evaluation of progress towards goal: DC to SNF when ready Problem: Pain Goal: Patient goal is pain score less than 4, able to rest, and participant in treatment plan as appropriate Description: INTERVENTIONS: 1. Encourage patient or legal healthcare representative to report early pain and ask for pain medicine when needed 2. Assess pain using appropriate pain scale and include the scale used when documenting 3. Administer analgesics based on type and severity of pain and evaluate response within appropriate time frame 4. Implement non-pharmacological measures as appropriate and evaluate response 5. Consider cultural and social influences on pain and pain management 6. Notify LIP if interventions ineffective or patient reports new pain 7. Monitor vital signs including pulse ox, end-tidal CO2 based on pain intervention 8. Reassess pain per policy 9. Teach patient or legal healthcare representative interventions for comforting Outcome: Progressing Note: Evaluation of progress towards goal: medicated for pain Problem: Safety Goal: Patient will be injury free during hospitalization Description: INTERVENTIONS: 1. Assess patient's risk for falls and implement fall prevention plan of care per policy 2. Provide and maintain a safe environment 3. Proper use of double Identifiers 4. Medication administration using the 5 rights 5. Hand hygiene 6. Specimens are labeled at the bedside 7. Instruct patient/ patient healthcare representative about use of safety devices 8. Include patient/ patient healthcare representative in decisions related to safety Outcome: Progressing Note: Evaluation of progress towards goal: remains free of injury. Safety maintained. Problem: Infection Goal: Absence of infection during hospitalization Description: INTERVENTIONS 1. Assess and monitor for signs and symptoms of infection. 2. Monitor lab/diagnostic results. 3. Monitor all insertion sites i.e., indwelling lines, tubes and drains. 4. Monitor endotracheal (as able) and nasal secretions for changes in amount and color. 5. Administer medications as ordered. 6. Instruct and encourage patient and family to use good hand hygiene technique. 7. Identify and instruct patient/patient healthcare representative in use of appropriate isolation precautions for identified infection/symptoms. 8. Provide and discuss with patient/patient healthcare representative on educational MDRO sheet. 9. Encourage and monitor nutritional status daily and consult enterprise infrastructure architect if indicated. 10. Implement neutropenic guidelines as needed. Outcome: Progressing Note: Evaluation of progress towards goal: PT lab values and vitals monitored for signs of infection. IV antibiotics given as scheduled Problem: Knowledge Deficit Goal: Patient/patient healthcare representative demonstrates understanding of disease process, treatment plan, medications, and discharge instructions Description: INTERVENTIONS 1. Complete learning assessment and assess knowledge base 2. Provide teaching at level of understanding 3. Provide teaching via preferred learning method(s) Outcome: Progressing Note: Evaluation of progress towards goal: Verbalized understanding of disease process and treatments. Problem: Discharge Planning Goal: Discharge to post-acute care, other facility, or home with appropriate resources Description: Patient's goal is: INTERVENTIONS 1. Conduct assessment to determine patient/family and health care team treatment goals, and need for post-acute services based on payer coverage, community resources, and patient preferences, and barriers to discharge 2. Coordinate with Social work, Care Navigation, and Utilization Review to arrange appropriate level of services according to patient's needs based on patient preference and payer coverage in collaboration with the physician and health care team 3. Address psychosocial, clinical, and financial barriers to discharge as identified in assessment in conjunction with the patient/family and health care team 4. Consult appropriate ancillary services (i.e.. PT/OT/ST, etc) as needed 5. Communicate with and update the patient/family, physician, and health care team regarding progress on the discharge plan 6. Identify discharge learning needs (meds, wound care, etc). 7. Arrange for needed discharge transportation as appropriate Outcome: Progressing Note: Evaluation of progress towards goal: patient will be discharge to SNF Problem: Moderate - High Risk Fall Score Description: Mejia Fall Score of =/> 25 or indicated by [facility] Assessment Goal: Patient should be free from fall Description: Interventions: 1. [place] to environment 2. Hourly rounds addressing the 4 P's (Pain, Positioning, Possessions, Potty) 3. Clear area of hazards (spills, clutter, electrical cords, unnecessary equipment) 4. Place equipment (bed & TV controls, call light, phone, urinal) within reach 5. Encourage patient to wear glasses and hearing aides as appropriate 6. Maintain bed in lowest position 7. Lock wheels on bed/wheelchair 8. Provide adequate lighting, including night light 9. Assess need for additional bedding, food/fluids, pain med's prior to sleep/routinely 10. Provide gripper slippers or personal non-skid footwear 11. Teach patient and patient healthcare representative to maintain environment for safety and engage in all aspects of fall prevention program 12. Remind patient to call for help before getting out of bed 13. Initiate bed/chair/exit alarms supportive devices as appropriate, (chair wedge, no-skid floor mat, raised edge mattress, hip protectors) 14. Locate patient bed assignment for optimal visualization 15. Evaluate and identify Safe Patient Handling Equipment needs 16. Provide supervision when out of bed or chair 17. Utilize gait belt as needed to assist with ambulation 18. Place adaptive equipment (cane, walker) within reach 19. Request patient healthcare representative bring adaptive equipment/mobility aids from home or obtain and provide as needed 20. Consult pharmacy regarding effects of med's affecting mobility, cognition, and alternatives 21. Obtain physician order for PT if risk factors associated with mobility are present 22. Obtain physician order for OT as appropriate 23. Utilize diversional activities 24. Educate patient and patient healthcare representative how to maintain a safe environment during visitation times (notify nurse prior to leaving bedside) 25. Consider appropriateness of medical or non-medical language specialist 26. Set up voiding schedule as appropriate (every 2 hours) Outcome: Progressing Note: Evaluation of progress towards goal: Remains free of fall. Call light and personal belongings are within reach. Bed in low position and wheels are locked. Hourly rounding maintained. Problem: Potential for Compromised Skin Integrity Goal: Skin integrity is maintained or improved Description: Patient's goal is: INTERVENTIONS 1. Perform initial skin assessment on admission and as needed 2. Turn patient every 2 hours and PRN 3. Relieve pressure to bony prominences 4. Avoid shearing 5. Keep skin clean and dry 6. Alternate a full bath with partial baths for elderly 7. Apply lotion/moisturizer on skin 8. Monitor patient's hygiene practices 9. Float heels 10. Collaborate with interdisciplinary team and initiate plans and interventions as needed Outcome: Progressing Note: Evaluation of progress towards goal: Skin integrity maintained. Q 2 hours turns maintained. Goal: Patient's nutritional intake is adequate Description: Patient's goal is: INTERVENTIONS 1. Assess and monitor food intake and supplements, patient food preferences, nausea, vomiting, labs, oral cavity (gums, teeth, tongue, mucosa), proper denture fit, and cultural beliefs 2. Monitor for signs of hypoglycemia and hyperglycemia 3. Collaborate with interdisciplinary team and initiate plan and interventions as ordered 4. Monitor patient's weight 5. Assist patient with meals/food selection 6. Assist patient with eating 7. Allow adequate time for meals 8. Provide pleasant environment during mealtime 9. Increase social contact during mealtimes 10. Plan activities to conserve energy 11. Encourage/perform oral hygiene as appropriate 12. Encourage patient to take dietary supplement as ordered 13. Collaborate with clinical enterprise infrastructure architect 14. Include patient/ patient's healthcare representative in decisions related to nutrition Outcome: Progressing Note: Evaluation of progress towards goal: Patient encouraged to eat meals Problem: Urinary Incontinence Goal: Perineal skin integrity is maintained or improved Description: INTERVENTIONS 1. Assess genitourinary system, perineal skin, labs (urinalysis), and history of incontinence to include past management, aggravating, and alleviating factors 2. Keep skin clean and dry 3. Apply skin protectant 4. Develop skin care regimen 5. Provide privacy when changing patients incontinence device to maintain their dignity 6. Consider placing an indwelling catheter 7. Collaborate with interdisciplinary team and initiate plans and interventions as needed Outcome: Progressing Note: Evaluation of progress towards goal: perineal skin integrity maintained. Ointments applied Problem: Genitourinary - Adult Goal: Absence of urinary retention Description: INTERVENTIONS: 1. Assess patient s ability to void and empty bladder 2. Monitor intake/output and perform bladder scan as ordered 3. Place urinary catheter per LIP order if needed 4. Discuss with LIP medications to alleviate retention as needed 5. Discuss and document need for catheter daily 6. Prevention of urinary infection per policy Outcome: Progressing Note: Evaluation of progress towards goal: huber catheter patent Problem: Metabolic/Fluid and Electrolytes - Adult Goal: Hemodynamic stability and optimal renal function maintained Description: Patient's goal is: INTERVENTIONS 1. Monitor labs and assess for signs and symptoms of volume excess or deficit 2. Monitor intake, output and patient weight 3. Monitor urine specific gravity, serum osmolarity and serum sodium as indicated or ordered 4. Monitor response to interventions for patient's volume status, including labs, urine output, blood pressure (other measures as available) 5. Encourage oral intake as appropriate 6. Instruct patient on fluid and nutrition restrictions as appropriate Outcome: Progressing Note: Evaluation of progress towards goal: optimal renal function maintained Problem: Skin/Tissue Integrity - Adult Goal: Incisions, wounds, or drain sites healing without S/S of infection Description: INTERVENTIONS 1. ADMISSION & EVERY SHIFT: Assess and document risk factors for pressure ulcer development utilizing the David/David Q scale 2. Assess and document skin integrity 3. Assess and document dressing/incision, wound bed, drain sites and surrounding tissue 4. Implement wound care per orders 5. Initiate isolation precautions as appropriate 6. Initiate high risk precautions Outcome: Progressing Note: Evaluation of progress towards goal: wounds are healing without S/S of infection Physical Therapy Evaluation Discharge Recommendations PT Recommendations: Shelter Facility SNF/ECF Comments: Pt will benefit from additional skilled therapy to maximize level of functional indepedence and safety. 6 Clicks: Basic Mobility Turning from your back to your side while in a flat bed without using bed rails?: A lot Moving from lying on your back to sitting on side of flat bed without using bed rails?: A lot Moving to and from bed to a chair (including w/c)?: Total Standing up from a chair using your arms (e.g. w/c or bedside chair)?: Total To walk in hospital room?: Total Climbing 3-5 steps with a railing?: Total Scoring 6 Clicks: Basic Mobility Raw Score: 8 [facility] G Code Modifier: CM Therapy Plan Need for skilled Physical Therapy to address deficits in functional mobility due to a status decline resulting from sepsis. 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 Concern for infection s/p recent R BKA. Wound cultures growing proteus mirabilis. Transfer TTH for vascular consult Vascular - no sx intervention, continue abx per ID Wound care on board - also following L ankle wound (MRI neg for osteomyelitis) Dx: sepsis, L medial/ankle wounds Past Medical History: Diagnosis Date Anemia Chronic hypercapnic respiratory failure ([facility]) COPD (chronic obstructive pulmonary disease) [place] Depression Disease of lung HTN (hypertension) Obesity EMMA (obstructive sleep apnea) Paraplegia ([facility]) Past Surgical History: Procedure Laterality Date AMPUTATION BELOW KNEE Right 01/24/2025 Performed by Abraham Pimentel MD at [facility] COLOSTOMY ESOPHAGOGASTRODUODENOSCOPY PILONIDAL CYST / SINUS EXCISION VEIN SURGERY Left 07/15/2019 LT [facility] EVLT / PHLEBS PT Treatment/Interventions: Functional transfer training, UE strengthening/ROM, LE strengthening/ROM, Equipment eval/education, Balance, Bed mobility, Gait training, Functional activities, Endurance training PT Frequency: 4-5days/week PT Duration: LOS Patient Response to Treatment: Tolerated evaluation without adverse reaction Assessment Patient Assessment Therapy Problem List: Decreased ADL status, Decreased balance, Decreased endurance, Decreased mobility, Decreased UE strength, Decreased LE strength, Decreased LE ROM, Non-functional RLE, Non-functional LLE Patient Response to Treatment: Tolerated evaluation without adverse reaction Mood/Affect: Appropriate for circumstances Rehab Prognosis: Good, With continued PT status post acute discharge Visit RN Communication: Yes Medical Record Reviewed: Yes PT Type of Visit: Evaluation Reason For Medical Deferral: Off unit Off Unit: Testing (CT scan) Precautions Activity: early mobility - pass; okay to see per RN Equipment: repositioning sling, huber, colostomy, O2 Telemetry/Roll Icer: Yes Oxygen Used: 3L via [place] Other: High fall risk, h/o paraplegia, 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, 4L O2 baseline, BLE external rotation / adduction at hips, knee contractures Pain Assessment Pain Assessment: No/denies pain Home Living Type of Home: House Home Layout: One level Stairs to Enter: ramp Bathroom Shower/Tub: (sponge bathes at baseline) Bathroom Toilet: (Pt has colostomy and Huber, was straight cathing at home.) Bathroom Equipment: Grab bars in shower, Shower chair, Hand-held shower, Grab bars around toilet Bathroom Accessibility: Accessible Home Equipment: Rolling walker, Wheelchair-manual, Wheelchair-electric, Home oxygen, Hospital bed (4L Home O2) Other : Pt has been at [facility]SNF since [facility] in Dec. Prior Function Lives With: Spouse (Pt lives with spouse when home prior to A in Dec. Pt reports that has Parkinsons and is limited in amount of assistance she can provide.) Receives Help From: (Prior to SNF pt had personal investment adviser who came every 2 weeks. Pt reports limited support from family. States that he has friends who can help if needed.) Level of Mobility: Needs assistance with ADLs or functional transfers or gait Other: Prior to A pt was performing sliding board transfers assistance. Pt has required use of Iris lift at facility for transfers since BKA. Pt manages own upper body dressing and grooming as well as colostomy and straight cath. Homemaking Assistance: Needs assistance Meal Prep: (Facility staff completing all homemaking tasks. Does not drive at [facility].) Vocational: Retired ([employer]) ADL / IADL Hand Dominance: Right Hearing / Speech / Vision Hearing: Within Functional Limits Speech: Within Functional Limits Current Vision: Wears glasses only for reading (and TV) Cognition Overall Cognitive Status: Within Functional Limits Orientation Level: Oriented X4 Sensation Overall Sensation Status: Consistent with premorbid status (Decreased sensation BLE's) Bed Mobility Supine to Sit: Mod assist, Right Sit to Supine: Mod assist Other: Completed with HOB elevated with increased time and effort. Pt able to initiate BLE's to EOB and mostly requires assistance with trunk progression. During return to suine, pt required assist to lift legs into bed and was able to lowering of trunk. Pt supine at end of session with call light and needs in reach. RN updated. Transfers Other: Not assessed this date. Pt declined transfer to chair with maxi-gaetano. Gait Other: non-ambulatory at baseline Balance Sitting Balance: Static: Good (-) Sitting Balance: Dynamic: Fair (-) Other: Pt sat EOB approx 10 min. Intially required mod A to come to midline position from R sidelying. Pt has severe roto scoliosis that affects sitting posture. Able to progress quickly to CGA with BUE support. Posture Posture Evaluation: Exceptions to Functional Limits Spine: Scoliotic (rotational) RUE Assessment: (AROM shoulders limited to approx 60 degrees, audible krepatis heard during all movement, generalized weakness throughout per OT) LUE Assessment: (AROM shoulder limited to approx 80 degres. Generalized weakness throughout per OT) RLE Assessment: (Pt in chronic frog legged postioiong. Recent BKA on 01/17. R hip passive IR to neutral only. Knee extension lacks approx 90 degrees. Demonstrates grossly 2-/5 strength in hip/knee) LLE Assessment: (Pt in chronic frog legged position. L hip contratcted in ER. Knee ext lacks approx 80 degrees. Demonstrates grossly 2-/5 strength in hip/knee) Activity Tolerance Endurance: Tolerates <30 minutes activity WITHOUT vital sign changes Other: Pt on 3L O2. Requires frequent rest breaks. Plan Physical Therapy Care Plan Physical Therapy Care Plan (Active) Template: PT - Physical Therapy Problem: Activity Tolerance Dates: Start: 02/16/25 Disciplines: PT Goal: Tolerate > 30 minutes of activity WITH rest breaks Dates: Start: 02/16/25 Expected End: 02/23/25 Description: Patient to perform functional range/strengthening exercises to improve functional strength and endurance for improved independence and safe mobility. Disciplines: PT Problem: Bed Mobility Dates: Start: 02/16/25 Disciplines: PT Goal: Patient will perform bed mobility with Minimum Assist Dates: Start: 02/16/25 Expected End: 02/23/25 Description: Pt will perform supine<>sit demonstrating safe technique. Disciplines: PT Problem: Sitting Balance Dates: Start: 02/16/25 Disciplines: PT Goal: Improve balance to fair Dates: Start: 02/16/25 Expected End: 02/23/25 Description: Pt will demonstrate Fair dynamic sitting balance during functional UE activities with MAXINE support. Disciplines: PT Problem: Transfers Dates: Start: 02/16/25 Disciplines: PT Goal: Patient will perform transfers with Moderate Assist Dates: Start: 02/16/25 Expected End: 02/23/25 Description: Pt will initiate slide board transfers with min A. Disciplines: PT Physical Therapy Care Plan (Resolved) There are no resolved problems. Principal Problem: Sepsis ([facility]) Active Problems: Essential hypertension EMMA treated with BiPAP Chronic respiratory failure with hypoxia and hypercapnia ([facility]) Paraplegia ([facility]) Below-knee amputation of right lower extremity ([facility]) Sepsis with acute renal failure (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) Venous stasis ulcer of left lower extremity (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) Surgical wound present Occupational Therapy Evaluation Discharge Recommendations OT Recommendations : Shelter Facility SNF/ECF Comments: Pt to benefit from additional skilled services to address decreased strength, endurance, balance and functional transfers that are affecting his ability to engage in ADLs and mobility at his PLOF. 6 Clicks: Daily Activity Putting on and taking off regular lower body clothing?: Total Bathing (including washing, rinsing, drying)?: A lot Toileting, which includes using toilet, bedpan or urinal?: Total Putting on and taking off regular upper body clothing?: A little Taking care of personal grooming such as brushing teeth?: A little Eating meals?: None Scoring Daily Activity Raw Score: 14 [facility] G Code Modifier: CK Therapy Plan Need for skilled Occupational Therapy to address deficits in ADL independence and functional mobility due to a status decline resulting from hospitalization due to sepsis. 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 Concern for infection s/p recent R BKA. Wound cultures growing proteus mirabilis. Transfer TTH for vascular consult Vascular - no sx intervention, continue abx per ID Wound care on board - also following L ankle wound (MRI neg for osteomyelitis) Dx: sepsis, L medial/ankle wounds Pt seen this date for Occupational Therapy evaluation; additional information re: pt past medical history and current occupational profile can be found within report below. Past Medical History: Diagnosis Date Anemia Chronic hypercapnic respiratory failure ([facility]) COPD (chronic obstructive pulmonary disease) ([facility]) Depression Disease of lung HTN (hypertension) Obesity EMMA (obstructive sleep apnea) Paraplegia ([facility]) Past Surgical History: Procedure Laterality Date AMPUTATION BELOW KNEE Right 01/24/2025 Performed by Abraham Pimentel MD at [facility] COLOSTOMY ESOPHAGOGASTRODUODENOSCOPY PILONIDAL CYST / SINUS EXCISION VEIN SURGERY Left 07/15/2019 LT [facility] EVLT / PHLEBS OT Treatment/Interventions: ADL retraining, Functional transfer training, UE strengthening/ROM, Endurance training, Patient/family training, Balance, Equipment eval/education, Bed mobility, Compensatory technique education, Functional activities OT Frequency: 4-5days/week OT Duration: LOS Assessment Patient Assessment Therapy Problem List: Decreased ADL status, Decreased balance, Decreased endurance, Decreased high-level ADLs, Decreased mobility, Decreased self-care trans, Decreased UE strength Patient Response to Treatment: Tolerated evaluation without adverse reaction Mood/Affect: Appropriate for circumstances Rehab Prognosis: Good, With continued OT status post acute discharge Visit RN Communication: Yes Medical Record Reviewed: Yes OT Type of Visit: Evaluation Reason For Medical Deferral: Off unit Off Unit: Testing Precautions Activity: early mobility - pass; okay to see per RN Equipment: repositioning sling, huber, colostomy, O2 Telemetry/Roll Icer: Yes Oxygen Used: 3L via [place] Other: High fall risk, h/o paraplegia, 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, 4L O2 baseline, BLE external rotation / adduction at hips, knee contractures Pain Assessment Pain Assessment: No/denies pain Home Living Type of Home: House (pt has been at [facility] since R BKA prior to that living at home with that information listed here) Home Layout: One level, Ramped entrance Stairs to Enter: ramp Stairs in Home: 0 Bathroom Shower/Tub: (sponge bathes baseline at home) Bathroom Toilet: (n/a colostomy and huber; pt was straight cathing at home) Home Equipment: Rolling walker, Wheelchair-manual, Wheelchair-electric, Home oxygen, Hospital bed (4L O2 baseline, pt reports I wouldn't wear it outside because the hose wasn't long enough. ) Prior Function Lives With: Other (Comment) (Pt currently from SNF since [facility] in Dec 2024, prior to that home with spouse has Parkinson's pt reports less able to help him in recent months) Receives Help From: communications attendant, Friend(s) (Currently assist from SNF; prior to SNF at home pt had personal investment adviser coming every two weeks, pt reports limited support from family, has friends I could ask if I needed to. ) Level of Mobility: Needs assistance with ADLs or functional transfers or gait (Since BKA @ facility dependent on iris lift to wheelchair, sponge bathing with assist.) Other: At baseline pt using slide board to transfer to electric wheelchair. VASCULAR NURSE assisted with lower body bathing every two weeks. Pt doing own grooming and upper body bathing, managing own colostomy and straight cath. Appears pt could have been using more support at home in spouse's declining health, he states, I know I need to have them come in at least every week. Homemaking Assistance: Needs assistance (Facility staff completing) Vocational: Retired ([employer]) Leisure: (enjoys watching Hockey) ADL / IADL Hand Dominance: Right Where Assessed: Edge of bed Eating Assistance: Independent Grooming Assistance: Standby assist (seated) Bathing/Showering Assistance: Max assist Toilet/Commode Assistance: Total assist (colostomy / huber) UE Dressing Assistance: Min assist (don hospital gown seated at EOB) UE Dressing Deficit: Pull around back LE Dressing Assistance: Total assist Footwear Assistance: Total assist Other: Pt is supine in bed upon arrival. While pt declines lift to recliner this date is agreeable to ADLS at EOB. Sits at EOB approx 10 minutes, washes face with set up support. Assistance for washing pt back and underarms, application of deodorant. Min assist to don hospital gown while seated EOB. Additional ADLs listed above that were not directly observed tihs date are based on clinical judgment and assessment of pt person factors and performance skills. Home Management - IADL Other: Pt is supine in bed upon arrival. While pt declines lift to recliner this date is agreeable to ADLS at EOB. Sits at EOB approx 10 minutes, washes face with set up support. Assistance for washing pt back and underarms, application of deodorant. Min assist to don hospital gown while seated EOB. Additional ADLs listed above that were not directly observed tihs date are based on clinical judgment and assessment of pt person factors and performance skills. Hearing / Speech / Vision Hearing: Within Functional Limits Speech: Within Functional Limits Current Vision: Wears glasses only for reading Cognition Overall Cognitive Status: Within Functional Limits Sensation Overall Sensation Status: Consistent with premorbid status (decreased sensation BLEs) Bed Mobility Supine to Sit: Mod assist, Right Sit to Supine: Mod assist Other: HOB elevated, increased time and effort. Pt requires assistance for LLE fully over EOB, moderate support for trunk upright and L hip fully to EOB. Initially requires support due to posterior lean, improves to close SBA to CGA. Back to bed pt requires assistance for LEs into bed and for repositioning up in head of bed. Left supine in bed with call light in hand, tray table in reach and all needs met. RN updated. Transfers Other: Not assessed this date, pt declines lift to recliner as he had just returned from CT testing. Gait Other: pt non-ambulatory at baseline Balance Sitting Balance: Static: Good Sitting Balance: Dynamic: Fair RUE Assessment: (AROM shoulders limited to approx 60 degrees, audible krepatis heard during all movement, generalized weakness throughout) LUE Assessment: (AROM shoulders limited to approx 80 degrees. Generalized weakness throughout.) Activity Tolerance Endurance: Tolerates <30 minutes activity WITHOUT vital sign changes Other: Pt pleasant and cooperative. On 3L throughout treatment. Fatigues quickly. REst breaks as needee. Plan Occupational Therapy Care Plan Occupational Therapy Care Plan (Active) Template: OT - Occupational Therapy Problem: Activity Tolerance Dates: Start: 02/16/25 Disciplines: OT Goal: Tolerate > 30 minutes of activity WITH rest breaks Dates: Start: 02/16/25 Expected End: 02/23/25 Description: Goal Description: Disciplines: OT Problem: Bathing UB Dates: Start: 02/16/25 Disciplines: OT Goal: Patient will perform bathing UB with Stand By Assist Dates: Start: 02/16/25 Expected End: 02/23/25 Description: Goal Description: Disciplines: OT Problem: Bed Mobility Dates: Start: 02/16/25 Disciplines: OT Goal: Patient will perform bed mobility with Minimum Assist Dates: Start: 02/16/25 Expected End: 02/23/25 Description: Goal Description: Disciplines: OT Problem: Dressing UB Dates: Start: 02/16/25 Disciplines: OT Goal: Patient will perform dressing UB with Minimum Assist Dates: Start: 02/16/25 Expected End: 02/23/25 Description: Goal Description: Disciplines: OT Problem: Grooming Dates: Start: 02/16/25 Disciplines: OT Goal: Patient will perform grooming with Set-Up Dates: Start: 02/16/25 Expected End: 02/23/25 Description: Goal Description: Disciplines: OT Problem: Sitting Balance Dates: Start: 02/16/25 Disciplines: OT Goal: Improve balance to good Dates: Start: 02/16/25 Expected End: 02/23/25 Description: Static Dynamic Disciplines: OT Problem: Strength Dates: Start: 02/16/25 Disciplines: OT Goal: Improve strength Dates: Start: 02/16/25 Expected End: 02/23/25 Description: Of extremity/ location: BUEs To facilitate: improved activity tolerance, endurance, and safety and independence with ADLs and functional transfers Disciplines: OT Problem: Transfers Dates: Start: 02/16/25 Disciplines: OT Goal: Other transfer goal (Customize) Dates: Start: 02/16/25 Expected End: 02/23/25 Description: Goal Description: Disciplines: OT Occupational Therapy Care Plan (Resolved) There are no resolved problems. Principal Problem: Sepsis ([facility]) Active Problems: Essential hypertension EMMA treated with BiPAP Chronic respiratory failure with hypoxia and hypercapnia ([facility] Paraplegia ([facility]) Below-knee amputation of right lower extremity ([facility]) Sepsis with acute renal failure (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) Surgical wound present Occupational Therapy OT Type of Visit: Medical deferral Reason For Medical Deferral: Off unit Off Unit: Testing DISCHARGE PLANNING NOTE Discharge to SNF- new referral to [facility] per request. Backup would be [facility] who has already accepted. S transport. Needs auth- need PT/OT eval prior to submission. SW will continue to follow for additional needs - EDUARDO GALVAN 02/16/25 10:42 AM [facility] is able to accept. notified and agreeable. Unable to update patient as he is occupied with other staff - EDUARDO GALVAN 02/16/25 12:25 PM Patient informed of [facility] acceptance. He's agreeable of change in plan. [facility] tasked to submit auth - EDUARDO GALVAN 02/16/25 4:18 PM DISCHARGE PLANNING NOTE Referral to [facility]/ [facility], [place], [place] (P# ; F# ) Problem: Pain Goal: Patient goal is pain score less than 4, able to rest, and participant in treatment plan as appropriate Description: INTERVENTIONS: 1. Encourage patient or legal healthcare representative to report early pain and ask for pain medicine when needed 2. Assess pain using appropriate pain scale and include the scale used when documenting 3. Administer analgesics based on type and severity of pain and evaluate response within appropriate time frame 4. Implement non-pharmacological measures as appropriate and evaluate response 5. Consider cultural and social influences on pain and pain management 6. Notify LIP if interventions ineffective or patient reports new pain 7. Monitor vital signs including pulse ox, based on pain intervention 8. Reassess pain per policy 9. Teach patient or legal healthcare representative interventions for comforting Outcome: Progressing Note: Evaluation of progress towards goal: Pt denies pain at this time. Rates pain 0 out of 10 on the numeric pain scale. Will continue to monitor and reassess pain with every rounding. Problem: Safety Goal: Patient will be injury free during hospitalization Description: INTERVENTIONS: 1. Assess patient's risk for falls and implement fall prevention plan of care per policy 2. Provide and maintain a safe environment 3. Proper use of double Identifiers 4. Medication administration using the 5 rights 5. Hand hygiene 6. Specimens are labeled at the bedside 7. Instruct patient/ patient healthcare representative about use of safety devices 8. Include patient/ patient healthcare representative in decisions related to safety Outcome: Progressing Note: Evaluation of progress towards goal: Pt is free from falls. Bed is in lowest position, brakes are locked, environment is neat, lighting is sufficient, and appropriate identifiers are being utilized. Problem: Moderate - High Risk Fall Score Description: Mejia Fall Score of =/> 25 or indicated by [facility] Assessment Goal: Patient should be free from fall Description: Interventions: 1. [place] to environment 2. Hourly rounds addressing the 4 P's (Pain, Positioning, Possessions, Potty) 3. Clear area of hazards (spills, clutter, electrical cords, unnecessary equipment) 4. Place equipment (bed & TV controls, call light, phone, urinal) within reach 5. Encourage patient to wear glasses and hearing aides as appropriate 6. Maintain bed in lowest position 7. Lock wheels on bed/wheelchair 8. Provide adequate lighting, including night light 9. Assess need for additional bedding, food/fluids, pain med's prior to sleep/routinely 10. Provide gripper slippers or personal non-skid footwear 11. Teach patient and patient healthcare representative to maintain environment for safety and engage in all aspects of fall prevention program 12. Remind patient to call for help before getting out of bed 13. Initiate bed/chair/exit alarms supportive devices as appropriate, (chair wedge, no-skid floor mat, raised edge mattress, hip protectors) 15. Evaluate and identify Safe Patient Handling Equipment needs 16. Provide supervision when out of bed or chair 17. Utilize gait belt as needed to assist with ambulation 18. Place adaptive equipment (cane, walker) within reach 19. Request patient healthcare representative bring adaptive equipment/mobility aids from home or obtain and provide as needed 20. Consult pharmacy regarding effects of med's affecting mobility, cognition, and alternatives 21. Obtain physician order for PT if risk factors associated with mobility are present 22. Obtain physician order for OT as appropriate 24. Educate patient and patient healthcare representative how to maintain a safe environment during visitation times (notify nurse prior to leaving bedside) Outcome: Progressing Note: Evaluation of progress towards goal: Pt educated on fall risk. Alarm engaged and audible. Pt is wearing non-slip socks while out of bed. Two side rails are up, environment neat, clean, and well lit. Pt is up with assist. Problem: Pain Goal: Patient goal is pain score less than 4, able to rest, and participant in treatment plan as appropriate Description: INTERVENTIONS: 1. Encourage patient or legal healthcare representative to report early pain and ask for pain medicine when needed 2. Assess pain using appropriate pain scale and include the scale used when documenting 3. Administer analgesics based on type and severity of pain and evaluate response within appropriate time frame 4. Implement non-pharmacological measures as appropriate and evaluate response 5. Consider cultural and social influences on pain and pain management 6. Notify LIP if interventions ineffective or patient reports new pain 7. Monitor vital signs including pulse ox, end-tidal CO2 based on pain intervention 8. Reassess pain per policy 9. Teach patient or legal healthcare representative interventions for comforting Outcome: Progressing Note: Evaluation of progress towards goal: Pain managed with current regimen per orders Problem: Safety Goal: Patient will be injury free during hospitalization Description: INTERVENTIONS: 1. Assess patient's risk for falls and implement fall prevention plan of care per policy 2. Provide and maintain a safe environment 3. Proper use of double Identifiers 4. Medication administration using the 5 rights 5. Hand hygiene 6. Specimens are labeled at the bedside 7. Instruct patient/ patient healthcare representative about use of safety devices 8. Include patient/ patient healthcare representative in decisions related to safety Outcome: Progressing Note: Evaluation of progress towards goal: Patient identified with 2x identifiers. Patient remains free from injury and fall and uses call light appropriately. Patient verbalizes understanding regarding activity limitations and restrictions. Patient uses non-skid socks and assistive devices as needed and directed. Problem: Infection Goal: Absence of infection during hospitalization Description: INTERVENTIONS 1. Assess and monitor for signs and symptoms of infection. 2. Monitor lab/diagnostic results. 3. Monitor all insertion sites i.e., indwelling lines, tubes and drains. 4. Monitor endotracheal (as able) and nasal secretions for changes in amount and color. 5. Administer medications as ordered. 6. Instruct and encourage patient and family to use good hand hygiene technique. 7. Identify and instruct patient/patient healthcare representative in use of appropriate isolation precautions for identified infection/symptoms. 8. Provide and discuss with patient/patient healthcare representative on educational MDRO sheet. 9. Encourage and monitor nutritional status daily and consult enterprise infrastructure architect if indicated. 10. Implement neutropenic guidelines as needed. Outcome: Progressing Note: Evaluation of progress towards goal: Patient receiving antibiotics per orders. Patient afebrile. ID following. Labs and vital signs assessed for changes indicative of worsening infection Problem: Knowledge Deficit Goal: Patient/patient healthcare representative demonstrates understanding of disease process, treatment plan, medications, and discharge instructions Description: INTERVENTIONS 1. Complete learning assessment and assess knowledge base 2. Provide teaching at level of understanding 3. Provide teaching via preferred learning method(s) Outcome: Progressing Note: Evaluation of progress towards goal: Patient verbalizes understanding of treatment course and continues to ask clarifying questions as needed about care. Problem: Discharge Planning Goal: Discharge to post-acute care, other facility, or home with appropriate resources Description: Patient's goal is: INTERVENTIONS 1. Conduct assessment to determine patient/family and health care team treatment goals, and need for post-acute services based on payer coverage, community resources, and patient preferences, and barriers to discharge 2. Coordinate with Social work, Care Navigation, and Utilization Review to arrange appropriate level of services according to patient's needs based on patient preference and payer coverage in collaboration with the physician and health care team 3. Address psychosocial, clinical, and financial barriers to discharge as identified in assessment in conjunction with the patient/family and health care team 4. Consult appropriate ancillary services (i.e.. PT/OT/ST, etc) as needed 5. Communicate with and update the patient/family, physician, and health care team regarding progress on the discharge plan 6. Identify discharge learning needs (meds, wound care, etc). 7. Arrange for needed discharge transportation as appropriate Outcome: Progressing Note: Evaluation of progress towards goal: Progressing toward discharge pending final antibiotic plan and provider order Problem: Moderate - High Risk Fall Score Description: Mejia Fall Score of =/> 25 or indicated by [facility] Assessment Goal: Patient should be free from fall Description: Interventions: 1. [place] to environment 2. Hourly rounds addressing the 4 P's (Pain, Positioning, Possessions, Potty) 3. Clear area of hazards (spills, clutter, electrical cords, unnecessary equipment) 4. Place equipment (bed & TV controls, call light, phone, urinal) within reach 5. Encourage patient to wear glasses and hearing aides as appropriate 6. Maintain bed in lowest position 7. Lock wheels on bed/wheelchair 8. Provide adequate lighting, including night light 9. Assess need for additional bedding, food/fluids, pain med's prior to sleep/routinely 10. Provide gripper slippers or personal non-skid footwear 11. Teach patient and patient healthcare representative to maintain environment for safety and engage in all aspects of fall prevention program 12. Remind patient to call for help before getting out of bed 13. Initiate bed/chair/exit alarms supportive devices as appropriate, (chair wedge, no-skid floor mat, raised edge mattress, hip protectors) 14. Locate patient bed assignment for optimal visualization 15. Evaluate and identify Safe Patient Handling Equipment needs 16. Provide supervision when out of bed or chair 17. Utilize gait belt as needed to assist with ambulation 18. Place adaptive equipment (cane, walker) within reach 19. Request patient healthcare representative bring adaptive equipment/mobility aids from home or obtain and provide as needed 20. Consult pharmacy regarding effects of med's affecting mobility, cognition, and alternatives 21. Obtain physician order for PT if risk factors associated with mobility are present 22. Obtain physician order for OT as appropriate 23. Utilize diversional activities 24. Educate patient and patient healthcare representative how to maintain a safe environment during visitation times (notify nurse prior to leaving bedside) 25. Consider appropriateness of medical or non-medical language specialist 26. Set up voiding schedule as appropriate (every 2 hours) Outcome: Progressing Note: Evaluation of progress towards goal: Patient remains free from fall at this time with implemented safety measures. Bed locked and low position. Call light visible and within reach. Patient belongings within reach. Patient wearing non-skid footwear and has been educated to call for help with activity and mobility needs. Problem: Potential for Compromised Skin Integrity Goal: Skin integrity is maintained or improved Description: Patient's goal is: INTERVENTIONS 1. Perform initial skin assessment on admission and as needed 2. Turn patient every 2 hours and PRN 3. Relieve pressure to bony prominences 4. Avoid shearing 5. Keep skin clean and dry 6. Alternate a full bath with partial baths for elderly 7. Apply lotion/moisturizer on skin 8. Monitor patient's hygiene practices 9. Float heels 10. Collaborate with interdisciplinary team and initiate plans and interventions as needed Outcome: Progressing Note: Evaluation of progress towards goal: Skin integrity maintained. Patient non-compliant with [id number] recommendation. Education reinforced Goal: Patient's nutritional intake is adequate Description: Patient's goal is: INTERVENTIONS 1. Assess and monitor food intake and supplements, patient food preferences, nausea, vomiting, labs, oral cavity (gums, teeth, tongue, mucosa), proper denture fit, and cultural beliefs 2. Monitor for signs of hypoglycemia and hyperglycemia 3. Collaborate with interdisciplinary team and initiate plan and interventions as ordered 4. Monitor patient's weight 5. Assist patient with meals/food selection 6. Assist patient with eating 7. Allow adequate time for meals 8. Provide pleasant environment during mealtime 9. Increase social contact during mealtimes 10. Plan activities to conserve energy 11. Encourage/perform oral hygiene as appropriate 12. Encourage patient to take dietary supplement as ordered 13. Collaborate with clinical enterprise infrastructure architect 14. Include patient/ patient's healthcare representative in decisions related to nutrition Outcome: Progressing Note: Evaluation of progress towards goal: Patient consumed 50% of dinner tray. Problem: Urinary Incontinence Goal: Perineal skin integrity is maintained or improved Description: INTERVENTIONS 1. Assess genitourinary system, perineal skin, labs (urinalysis), and history of incontinence to include past management, aggravating, and alleviating factors 2. Keep skin clean and dry 3. Apply skin protectant 4. Develop skin care regimen 5. Provide privacy when changing patients incontinence device to maintain their dignity 6. Consider placing an indwelling catheter 7. Collaborate with interdisciplinary team and initiate plans and interventions as needed Outcome: Progressing Note: Evaluation of progress towards goal: Perineal skin maintained. Huber care per policy and as needed. Colostomy maintained per policy Problem: Genitourinary - Adult Goal: Absence of urinary retention Description: INTERVENTIONS: 1. Assess patient s ability to void and empty bladder 2. Monitor intake/output and perform bladder scan as ordered 3. Place urinary catheter per LIP order if needed 4. Discuss with LIP medications to alleviate retention as needed 5. Discuss and document need for catheter daily 6. Prevention of urinary infection per policy Outcome: Progressing Note: Evaluation of progress towards goal: Indwelling catheter in place and draining yellow urine without obstruction Problem: Metabolic/Fluid and Electrolytes - Adult Goal: Hemodynamic stability and optimal renal function maintained Description: Patient's goal is: INTERVENTIONS 1. Monitor labs and assess for signs and symptoms of volume excess or deficit 2. Monitor intake, output and patient weight 3. Monitor urine specific gravity, serum osmolarity and serum sodium as indicated or ordered 4. Monitor response to interventions for patient's volume status, including labs, urine output, blood pressure (other measures as available) 5. Encourage oral intake as appropriate 6. Instruct patient on fluid and nutrition restrictions as appropriate Outcome: Progressing Note: Evaluation of progress towards goal: Patient fluid status and electrolytes monitored each shift and as needed according to assessment data and labs. Fluids administered as ordered. PO intake encouraged as tolerated. Electrolyte supplements administered as ordered. Intake and output recorded per policy and as needed. Daily weights obtained per orders and as needed. Problem: Skin/Tissue Integrity - Adult Goal: Incisions, wounds, or drain sites healing without S/S of infection Description: INTERVENTIONS 1. ADMISSION & EVERY SHIFT: Assess and document risk factors for pressure ulcer development utilizing the David/David Q scale 2. Assess and document skin integrity 3. Assess and document dressing/incision, wound bed, drain sites and surrounding tissue 4. Implement wound care per orders 5. Initiate isolation precautions as appropriate 6. Initiate high risk precautions Outcome: Progressing Note: Evaluation of progress towards goal: Wound care per orders, qturning recommended to offload and prevent additional injury DISCHARGE PLANNING NOTE Referral for return to [facility] in [place] (P#: [phone]; [phone] DISCHARGE PLANNING NOTE Discharge Plan: To return to [facility], [facility] tasked to submit return referral. Patient will need authorization to return. Will need S transport. Barriers include: IV abx. - Sandra Quigley 02/15/25 11:35 AM Cosigned by EDUARDO Galvan at 02/15/2025 1:24 PM EDT Associated attestation - Brenda Jenkins LSW - 02/15/2025 1:24 PM EDT - EDUARDO GALVAN 02/15/25 1:24 PM Problem: Pain Goal: Patient goal is pain score less than 4, able to rest, and participant in treatment plan as appropriate Description: INTERVENTIONS: 1. Encourage patient or legal healthcare representative to report early pain and ask for pain medicine when needed 2. Assess pain using appropriate pain scale and include the scale used when documenting 3. Administer analgesics based on type and severity of pain and evaluate response within appropriate time frame 4. Implement non-pharmacological measures as appropriate and evaluate response 5. Consider cultural and social influences on pain and pain management 6. Notify LIP if interventions ineffective or patient reports new pain 7. Monitor vital signs including pulse ox, based on pain intervention 8. Reassess pain per policy 9. Teach patient or legal healthcare representative interventions for comforting Outcome: Progressing Note: Evaluation of progress towards goal: Pt denies pain at this time. Rates pain 0 out of 10 on the numeric pain scale. Will continue to monitor and reassess pain with every rounding. Problem: Safety Goal: Patient will be injury free during hospitalization Description: INTERVENTIONS: 1. Assess patient's risk for falls and implement fall prevention plan of care per policy 2. Provide and maintain a safe environment 3. Proper use of double Identifiers 4. Medication administration using the 5 rights 5. Hand hygiene 6. Specimens are labeled at the bedside 7. Instruct patient/ patient healthcare representative about use of safety devices 8. Include patient/ patient healthcare representative in decisions related to safety Outcome: Progressing Note: Evaluation of progress towards goal: Pt is free from falls. Bed is in lowest position, brakes are locked, environment is neat, lighting is sufficient, and appropriate identifiers are being utilized. Problem: Moderate - High Risk Fall Score Description: Mejia Fall Score of =/> 25 or indicated by [facility] Assessment Goal: Patient should be free from fall Description: Interventions: 1. [place] to environment 2. Hourly rounds addressing the 4 P's (Pain, Positioning, Possessions, Potty) 3. Clear area of hazards (spills, clutter, electrical cords, unnecessary equipment) 4. Place equipment (bed & TV controls, call light, phone, urinal) within reach 5. Encourage patient to wear glasses and hearing aides as appropriate 6. Maintain bed in lowest position 7. Lock wheels on bed/wheelchair 8. Provide adequate lighting, including night light 9. Assess need for additional bedding, food/fluids, pain med's prior to sleep/routinely 10. Provide gripper slippers or personal non-skid footwear 11. Teach patient and patient healthcare representative to maintain environment for safety and engage in all aspects of fall prevention program 12. Remind patient to call for help before getting out of bed 13. Initiate bed/chair/exit alarms supportive devices as appropriate, (chair wedge, no-skid floor mat, raised edge mattress, hip protectors) 15. Evaluate and identify Safe Patient Handling Equipment needs 16. Provide supervision when out of bed or chair 17. Utilize gait belt as needed to assist with ambulation 18. Place adaptive equipment (cane, walker) within reach 19. Request patient healthcare representative bring adaptive equipment/mobility aids from home or obtain and provide as needed 20. Consult pharmacy regarding effects of med's affecting mobility, cognition, and alternatives 21. Obtain physician order for PT if risk factors associated with mobility are present 22. Obtain physician order for OT as appropriate 24. Educate patient and patient healthcare representative how to maintain a safe environment during visitation times (notify nurse prior to leaving bedside) Outcome: Progressing Note: Evaluation of progress towards goal: Pt educated on fall risk. Alarm engaged and audible. Pt is wearing non-slip socks while out of bed. Two side rails are up, environment neat, clean, and well lit. Pt is up with assist. Problem: Pain Goal: Patient goal is pain score less than 4, able to rest, and participant in treatment plan as appropriate Description: INTERVENTIONS: 1. Encourage patient or legal healthcare representative to report early pain and ask for pain medicine when needed 2. Assess pain using appropriate pain scale and include the scale used when documenting 3. Administer analgesics based on type and severity of pain and evaluate response within appropriate time frame 4. Implement non-pharmacological measures as appropriate and evaluate response 5. Consider cultural and social influences on pain and pain management 6. Notify LIP if interventions ineffective or patient reports new pain 7. Monitor vital signs including pulse ox, end-tidal CO2 based on pain intervention 8. Reassess pain per policy 9. Teach patient or legal healthcare representative interventions for comforting Outcome: Progressing Note: Evaluation of progress towards goal: Patient verbalizes pain appropriately using 0-10 pain scale. Patient pain managed with pharmacological and non-pharmacological means by way of medication, repositioning, relaxation techniques and conversation. Pain assessed every 4 hours and as needed for treatment. Changes in pain score and medication response Problem: Safety Goal: Patient will be injury free during hospitalization Description: INTERVENTIONS: 1. Assess patient's risk for falls and implement fall prevention plan of care per policy 2. Provide and maintain a safe environment 3. Proper use of double Identifiers 4. Medication administration using the 5 rights 5. Hand hygiene 6. Specimens are labeled at the bedside 7. Instruct patient/ patient healthcare representative about use of safety devices 8. Include patient/ patient healthcare representative in decisions related to safety Outcome: Progressing Note: Evaluation of progress towards goal: Patient identified with 2x identifiers. Patient remains free from injury and fall and uses call light appropriately. Patient verbalizes understanding regarding activity limitations and restrictions. Patient uses non-skid socks and assistive devices as needed and directed. Problem: Infection Goal: Absence of infection during hospitalization Description: INTERVENTIONS 1. Assess and monitor for signs and symptoms of infection. 2. Monitor lab/diagnostic results. 3. Monitor all insertion sites i.e., indwelling lines, tubes and drains. 4. Monitor endotracheal (as able) and nasal secretions for changes in amount and color. 5. Administer medications as ordered. 6. Instruct and encourage patient and family to use good hand hygiene technique. 7. Identify and instruct patient/patient healthcare representative in use of appropriate isolation precautions for identified infection/symptoms. 8. Provide and discuss with patient/patient healthcare representative on educational MDRO sheet. 9. Encourage and monitor nutritional status daily and consult enterprise infrastructure architect if indicated. 10. Implement neutropenic guidelines as needed. Outcome: Progressing Note: Evaluation of progress towards goal: Patient receiving antibiotic per orders pending ID consultation. Afebrile at present. Labs and vital signs per orders and reassessed for changes indicative of worsening infection Problem: Knowledge Deficit Goal: Patient/patient healthcare representative demonstrates understanding of disease process, treatment plan, medications, and discharge instructions Description: INTERVENTIONS 1. Complete learning assessment and assess knowledge base 2. Provide teaching at level of understanding 3. Provide teaching via preferred learning method(s) Outcome: Progressing Note: Evaluation of progress towards goal: Patient verbalizes understanding of treatment course and continues to ask clarifying questions as needed about care. Problem: Discharge Planning Goal: Discharge to post-acute care, other facility, or home with appropriate resources Description: Patient's goal is: INTERVENTIONS 1. Conduct assessment to determine patient/family and health care team treatment goals, and need for post-acute services based on payer coverage, community resources, and patient preferences, and barriers to discharge 2. Coordinate with Social work, Care Navigation, and Utilization Review to arrange appropriate level of services according to patient's needs based on patient preference and payer coverage in collaboration with the physician and health care team 3. Address psychosocial, clinical, and financial barriers to discharge as identified in assessment in conjunction with the patient/family and health care team 4. Consult appropriate ancillary services (i.e.. PT/OT/ST, etc) as needed 5. Communicate with and update the patient/family, physician, and health care team regarding progress on the discharge plan 6. Identify discharge learning needs (meds, wound care, etc). 7. Arrange for needed discharge transportation as appropriate Outcome: Progressing Note: Evaluation of progress towards goal: Patient progressing toward discharge pending antibiotic therapy and plan, vascular plan, and provider order Problem: Moderate - High Risk Fall Score Description: Mejia Fall Score of =/> 25 or indicated by [facility] Assessment Goal: Patient should be free from fall Description: Interventions: 1. [place] to environment 2. Hourly rounds addressing the 4 P's (Pain, Positioning, Possessions, Potty) 3. Clear area of hazards (spills, clutter, electrical cords, unnecessary equipment) 4. Place equipment (bed & TV controls, call light, phone, urinal) within reach 5. Encourage patient to wear glasses and hearing aides as appropriate 6. Maintain bed in lowest position 7. Lock wheels on bed/wheelchair 8. Provide adequate lighting, including night light 9. Assess need for additional bedding, food/fluids, pain med's prior to sleep/routinely 10. Provide gripper slippers or personal non-skid footwear 11. Teach patient and patient healthcare representative to maintain environment for safety and engage in all aspects of fall prevention program 12. Remind patient to call for help before getting out of bed 13. Initiate bed/chair/exit alarms supportive devices as appropriate, (chair wedge, no-skid floor mat, raised edge mattress, hip protectors) 14. Locate patient bed assignment for optimal visualization 15. Evaluate and identify Safe Patient Handling Equipment needs 16. Provide supervision when out of bed or chair 17. Utilize gait belt as needed to assist with ambulation 18. Place adaptive equipment (cane, walker) within reach 19. Request patient healthcare representative bring adaptive equipment/mobility aids from home or obtain and provide as needed 20. Consult pharmacy regarding effects of med's affecting mobility, cognition, and alternatives 21. Obtain physician order for PT if risk factors associated with mobility are present 22. Obtain physician order for OT as appropriate 23. Utilize diversional activities 24. Educate patient and patient healthcare representative how to maintain a safe environment during visitation times (notify nurse prior to leaving bedside) 25. Consider appropriateness of medical or non-medical language specialist 26. Set up voiding schedule as appropriate (every 2 hours) Outcome: Progressing Note: Evaluation of progress towards goal: Patient remains free from fall at this time with implemented safety measures. Bed locked and low position. Call light visible and within reach. Patient belongings within reach. Patient wearing non-skid footwear and has been educated to call for help with activity and mobility needs. Maxi gaetano used for transfers as needed Problem: Potential for Compromised Skin Integrity Goal: Skin integrity is maintained or improved Description: Patient's goal is: INTERVENTIONS 1. Perform initial skin assessment on admission and as needed 2. Turn patient every 2 hours and PRN 3. Relieve pressure to bony prominences 4. Avoid shearing 5. Keep skin clean and dry 6. Alternate a full bath with partial baths for elderly 7. Apply lotion/moisturizer on skin 8. Monitor patient's hygiene practices 9. Float heels 10. Collaborate with interdisciplinary team and initiate plans and interventions as needed Outcome: Progressing Note: Evaluation of progress towards goal: Foam dressings to ankle. Offloading and q2hour turning encouraged to prevent additional skin injury and break down Goal: Patient's nutritional intake is adequate Description: Patient's goal is: INTERVENTIONS 1. Assess and monitor food intake and supplements, patient food preferences, nausea, vomiting, labs, oral cavity (gums, teeth, tongue, mucosa), proper denture fit, and cultural beliefs 2. Monitor for signs of hypoglycemia and hyperglycemia 3. Collaborate with interdisciplinary team and initiate plan and interventions as ordered 4. Monitor patient's weight 5. Assist patient with meals/food selection 6. Assist patient with eating 7. Allow adequate time for meals 8. Provide pleasant environment during mealtime 9. Increase social contact during mealtimes 10. Plan activities to conserve energy 11. Encourage/perform oral hygiene as appropriate 12. Encourage patient to take dietary supplement as ordered 13. Collaborate with clinical enterprise infrastructure architect 14. Include patient/ patient's healthcare representative in decisions related to nutrition Outcome: Progressing Note: Evaluation of progress towards goal: Patient consumed 75% of dinner tray provided. Receiving IVF at present and drinking PO. Tolerating diet without nausea/vomiting. Problem: Urinary Incontinence Goal: Perineal skin integrity is maintained or improved Description: INTERVENTIONS 1. Assess genitourinary system, perineal skin, labs (urinalysis), and history of incontinence to include past management, aggravating, and alleviating factors 2. Keep skin clean and dry 3. Apply skin protectant 4. Develop skin care regimen 5. Provide privacy when changing patients incontinence device to maintain their dignity 6. Consider placing an indwelling catheter 7. Collaborate with interdisciplinary team and initiate plans and interventions as needed Outcome: Progressing Note: Evaluation of progress towards goal: Perineal skin excoriated and pink with barrier cream in place at present. Problem: Genitourinary - Adult Goal: Absence of urinary retention Description: INTERVENTIONS: 1. Assess patient s ability to void and empty bladder 2. Monitor intake/output and perform bladder scan as ordered 3. Place urinary catheter per LIP order if needed 4. Discuss with LIP medications to alleviate retention as needed 5. Discuss and document need for catheter daily 6. Prevention of urinary infection per policy Outcome: Progressing Note: Evaluation of progress towards goal: Indwelling catheter maintained, pending provider order and plan. Patient does CIC at baseline due to previous history. Catheter draining without obstruction Problem: Metabolic/Fluid and Electrolytes - Adult Goal: Hemodynamic stability and optimal renal function maintained Description: Patient's goal is: INTERVENTIONS 1. Monitor labs and assess for signs and symptoms of volume excess or deficit 2. Monitor intake, output and patient weight 3. Monitor urine specific gravity, serum osmolarity and serum sodium as indicated or ordered 4. Monitor response to interventions for patient's volume status, including labs, urine output, blood pressure (other measures as available) 5. Encourage oral intake as appropriate 6. Instruct patient on fluid and nutrition restrictions as appropriate Outcome: Progressing Note: Evaluation of progress towards goal: Patient fluid status and electrolytes monitored each shift and as needed according to assessment data and labs. Fluids administered as ordered. PO intake encouraged as tolerated. Electrolyte supplements administered as ordered. Intake and output recorded per policy and as needed. Daily weights obtained per orders and as needed. Problem: Skin/Tissue Integrity - Adult Goal: Incisions, wounds, or drain sites healing without S/S of infection Description: INTERVENTIONS 1. ADMISSION & EVERY SHIFT: Assess and document risk factors for pressure ulcer development utilizing the David/David Q scale 2. Assess and document skin integrity 3. Assess and document dressing/incision, wound bed, drain sites and surrounding tissue 4. Implement wound care per orders 5. Initiate isolation precautions as appropriate 6. Initiate high risk precautions Outcome: Progressing Note: Evaluation of progress towards goal: Surgical incision maintained. Foam dressing to heel tears and barrier film to coccx/ perineum Wound care pending consult and vascular plan. Dressing changes per policy or orders. [facility] of care note Problem: Pain Goal: Patient goal is pain score less than 4, able to rest, and participant in treatment plan as appropriate Description: INTERVENTIONS: 1. Encourage patient or legal healthcare representative to report early pain and ask for pain medicine when needed 2. Assess pain using appropriate pain scale and include the scale used when documenting 3. Administer analgesics based on type and severity of pain and evaluate response within appropriate time frame 4. Implement non-pharmacological measures as appropriate and evaluate response 5. Consider cultural and social influences on pain and pain management 6. Notify LIP if interventions ineffective or patient reports new pain 7. Monitor vital signs including pulse ox, end-tidal CO2 based on pain intervention 8. Reassess pain per policy 9. Teach patient or legal healthcare representative interventions for comforting Outcome: Progressing Note: Evaluation of progress towards goal: 0-10 pain scale used, other pain scale methods used as needed, patient pain is being managed through pharmacological and non pharmacological methods. Problem: Safety Goal: Patient will be injury free during hospitalization Description: INTERVENTIONS: 1. Assess patient's risk for falls and implement fall prevention plan of care per policy 2. Provide and maintain a safe environment 3. Proper use of double Identifiers 4. Medication administration using the 5 rights 5. Hand hygiene 6. Specimens are labeled at the bedside 7. Instruct patient/ patient healthcare representative about use of safety devices 8. Include patient/ patient healthcare representative in decisions related to safety Outcome: Progressing Note: Evaluation of progress towards goal: Call light within reach, bed locked and left at the lowest setting, adequate lighting in room, floor remains clear of tripping hazards. Problem: Infection Goal: Absence of infection during hospitalization Description: INTERVENTIONS 1. Assess and monitor for signs and symptoms of infection. 2. Monitor lab/diagnostic results. 3. Monitor all insertion sites i.e., indwelling lines, tubes and drains. 4. Monitor endotracheal (as able) and nasal secretions for changes in amount and color. 5. Administer medications as ordered. 6. Instruct and encourage patient and family to use good hand hygiene technique. 7. Identify and instruct patient/patient healthcare representative in use of appropriate isolation precautions for identified infection/symptoms. 8. Provide and discuss with patient/patient healthcare representative on educational MDRO sheet. 9. Encourage and monitor nutritional status daily and consult enterprise infrastructure architect if indicated. 10. Implement neutropenic guidelines as needed. Outcome: Progressing Note: Evaluation of progress towards goal: Monitor labs and vital signs. Patient afebrile at this time. Problem: Knowledge Deficit Goal: Patient/patient healthcare representative demonstrates understanding of disease process, treatment plan, medications, and discharge instructions Description: INTERVENTIONS 1. Complete learning assessment and assess knowledge base 2. Provide teaching at level of understanding 3. Provide teaching via preferred learning method(s) Outcome: Progressing Note: Evaluation of progress towards goal: Patient verbalizes/demonstrates understanding of disease process, treatment plan, medications, and discharge planning. Problem: Discharge Planning Goal: Discharge to post-acute care, other facility, or home with appropriate resources Description: Patient's goal is: SNF INTERVENTIONS 1. Conduct assessment to determine patient/family and health care team treatment goals, and need for post-acute services based on payer coverage, community resources, and patient preferences, and barriers to discharge 2. Coordinate with Social work, Care Navigation, and Utilization Review to arrange appropriate level of services according to patient's needs based on patient preference and payer coverage in collaboration with the physician and health care team 3. Address psychosocial, clinical, and financial barriers to discharge as identified in assessment in conjunction with the patient/family and health care team 4. Consult appropriate ancillary services (i.e.. PT/OT/ST, etc) as needed 5. Communicate with and update the patient/family, physician, and health care team regarding progress on the discharge plan 6. Identify discharge learning needs (meds, wound care, etc). 7. Arrange for needed discharge transportation as appropriate Outcome: Progressing Note: Evaluation of progress towards goal: PT awaiting discharge plan. Problem: Moderate - High Risk Fall Score Description: Mejia Fall Score of =/> 25 or indicated by [facility] Assessment Goal: Patient should be free from fall Description: Interventions: 1. [place] to environment 2. Hourly rounds addressing the 4 P's (Pain, Positioning, Possessions, Potty) 3. Clear area of hazards (spills, clutter, electrical cords, unnecessary equipment) 4. Place equipment (bed & TV controls, call light, phone, urinal) within reach 5. Encourage patient to wear glasses and hearing aides as appropriate 6. Maintain bed in lowest position 7. Lock wheels on bed/wheelchair 8. Provide adequate lighting, including night light 9. Assess need for additional bedding, food/fluids, pain med's prior to sleep/routinely 10. Provide gripper slippers or personal non-skid footwear 11. Teach patient and patient healthcare representative to maintain environment for safety and engage in all aspects of fall prevention program 12. Remind patient to call for help before getting out of bed 13. Initiate bed/chair/exit alarms supportive devices as appropriate, (chair wedge, no-skid floor mat, raised edge mattress, hip protectors) 14. Locate patient bed assignment for optimal visualization 15. Evaluate and identify Safe Patient Handling Equipment needs 16. Provide supervision when out of bed or chair 17. Utilize gait belt as needed to assist with ambulation 18. Place adaptive equipment (cane, walker) within reach 19. Request patient healthcare representative bring adaptive equipment/mobility aids from home or obtain and provide as needed 20. Consult pharmacy regarding effects of med's affecting mobility, cognition, and alternatives 21. Obtain physician order for PT if risk factors associated with mobility are present 22. Obtain physician order for OT as appropriate 23. Utilize diversional activities 24. Educate patient and patient healthcare representative how to maintain a safe environment during visitation times (notify nurse prior to leaving bedside) 25. Consider appropriateness of medical or non-medical language specialist 26. Set up voiding schedule as appropriate (every 2 hours) Outcome: Progressing Note: Evaluation of progress towards goal: Adaptive devices within reach; Adequate lighting/nightlight; Area clear of hazards; Assess personal needs before sleep; Bed/low position; Bed or chair locked; Call light within reach; Fall risk ID band; Gait belt; Reinforce fall risk limits; Nonslip footwear; Patient fall risk education reinforced; [place] to environment; Personal items within reach; Side rails up x2 Problem: Potential for Compromised Skin Integrity Goal: Skin integrity is maintained or improved Description: Patient's goal is: INTERVENTIONS 1. Perform initial skin assessment on admission and as needed 2. Turn patient every 2 hours and PRN 3. Relieve pressure to bony prominences 4. Avoid shearing 5. Keep skin clean and dry 6. Alternate a full bath with partial baths for elderly 7. Apply lotion/moisturizer on skin 8. Monitor patient's hygiene practices 9. Float heels 10. Collaborate with interdisciplinary team and initiate plans and interventions as needed Outcome: Progressing Note: Evaluation of progress towards goal: PT is encouraged/helped changing positions every 2 hours, pillow support, bony prominences padded as needed. Goal: Patient's nutritional intake is adequate Description: Patient's goal is: maintain nutritional intake INTERVENTIONS 1. Assess and monitor food intake and supplements, patient food preferences, nausea, vomiting, labs, oral cavity (gums, teeth, tongue, mucosa), proper denture fit, and cultural beliefs 2. Monitor for signs of hypoglycemia and hyperglycemia 3. Collaborate with interdisciplinary team and initiate plan and interventions as ordered 4. Monitor patient's weight 5. Assist patient with meals/food selection 6. Assist patient with eating 7. Allow adequate time for meals 8. Provide pleasant environment during mealtime 9. Increase social contact during mealtimes 10. Plan activities to conserve energy 11. Encourage/perform oral hygiene as appropriate 12. Encourage patient to take dietary supplement as ordered 13. Collaborate with clinical enterprise infrastructure architect 14. Include patient/ patient's healthcare representative in decisions related to nutrition Outcome: Progressing Note: Evaluation of progress towards goal: PT is on regular diet and appropriate for room service, pt appetite is good. Problem: Urinary Incontinence Goal: Perineal skin integrity is maintained or improved Description: INTERVENTIONS 1. Assess genitourinary system, perineal skin, labs (urinalysis), and history of incontinence to include past management, aggravating, and alleviating factors 2. Keep skin clean and dry 3. Apply skin protectant 4. Develop skin care regimen 5. Provide privacy when changing patients incontinence device to maintain their dignity 6. Consider placing an indwelling catheter 7. Collaborate with interdisciplinary team and initiate plans and interventions as needed Outcome: Progressing Note: Evaluation of progress towards goal: Pt skin is kept dry with brief/chux pad changes as needed. Antifungal powder used as needed. Problem: Genitourinary - Adult Goal: Absence of urinary retention Description: INTERVENTIONS: 1. Assess patient s ability to void and empty bladder 2. Monitor intake/output and perform bladder scan as ordered 3. Place urinary catheter per LIP order if needed 4. Discuss with LIP medications to alleviate retention as needed 5. Discuss and document need for catheter daily 6. Prevention of urinary infection per policy Outcome: Progressing Note: Evaluation of progress towards goal: Problem: Metabolic/Fluid and Electrolytes - Adult Goal: Hemodynamic stability and optimal renal function maintained Description: Patient's goal is: INTERVENTIONS 1. Monitor labs and assess for signs and symptoms of volume excess or deficit 2. Monitor intake, output and patient weight 3. Monitor urine specific gravity, serum osmolarity and serum sodium as indicated or ordered 4. Monitor response to interventions for patient's volume status, including labs, urine output, blood pressure (other measures as available) 5. Encourage oral intake as appropriate 6. Instruct patient on fluid and nutrition restrictions as appropriate Outcome: Progressing Note: Evaluation of progress towards goal: maintain fluid and electrolytes Problem: Skin/Tissue Integrity - Adult Goal: Incisions, wounds, or drain sites healing without S/S of infection Description: INTERVENTIONS 1. ADMISSION & EVERY SHIFT: Assess and document risk factors for pressure ulcer development utilizing the David/David Q scale 2. Assess and document skin integrity 3. Assess and document dressing/incision, wound bed, drain sites and surrounding tissue 4. Implement wound care per orders 5. Initiate isolation precautions as appropriate 6. Initiate high risk precautions Outcome: Progressing Note: Evaluation of progress towards goal: PT is encouraged/helped changing positions every 2 hours, pillow support, bony prominences padded as needed. [facility] 02-17-2025 Nurse Note Attempted to call report to long term. Was put on hold for ten minutes. Will attempt again [facility] 02-17-2025 Nurse Note Attempted to call report to long term. Was put on hold for ten minutes. Will attempt again documented in this encounter [facility] 02-17-2025 Hospital course Narrative Images from the original note were not included. [facility] [address] [facility] [id number] Hospital Medicine Discharge Summary Patient: Kj Lei Date of : 1945 Room: B759/ Encounter date: 02/17/25 Hospital Day: 4 DATE OF ADMISSION: 02/14/2025 DATE OF DISCHARGE:02/17/2025 DISCHARGE DIAGNOSES Principal Problem: Sepsis ([facility]) Active Problems: Essential hypertension EMMA treated with BiPAP Chronic respiratory failure with hypoxia and hypercapnia ([facility]) Paraplegia ([facility]) Below-knee amputation of right lower extremity ([facility]) Sepsis with acute renal failure (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) Venous stasis ulcer of left lower extremity (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) Surgical wound present [facility] Infectious disease Vascular surgery PCP: Hudson Rios MD PROCEDURES HOSPITAL COURSE SUMMARY Kj Lei is a 79 y.o. male who presents with past medical history significant for below-knee amputation of right lower extremity, chronic respiratory failure with hypoxia and hypercapnia-wears 4 L O2 via nasal cannula at home, hypertension, obstructive sleep apnea, wears BiPAP, paraplegia. He presented to [facility] on 02/12/2025 for a wound check, stated he had recent right leg amputation [id number] and was discharged from the hospital on 02/01/2025, was seen by Wound Care and sent to the emergency department. Reports that he had tachycardia, fevers, chills at home. He was initially started on cefepime vancomycin. He had wound cultures done on 02/12/2025 that resulted with Proteus mirabilis. He was fed blood cultures that were done 02/11/2025, both resulted with Proteus mirabilis. Antibiotics were de-escalated to Rocephin, Infectious Disease consulted. He was transferred to [facility] for formal evaluation by vascular surgery per their recommendations. He was also found to have left ankle wound and had left ankle MRI completed which was negative for osteomyelitis. During admission, patient initially met sirs criteria, vascular, infectious disease were consulted. Blood cultures from 02/11/2025 were 2 of 2 positive for Proteus mirabilis, repeat cultures were drawn on 02/12/2025, no growth to date. Procalcitonin downtrending. He was treated with Rocephin during admission, discharged with Augmentin until 02/24/2025 per Infectious Disease recommendations. He did have MRI completed for his left medial/lateral ankle wounds which was negative for osteomyelitis, seen by vascular surgery, he can follow up outpatient as well as follow up with wound care. Patient was found to have iron-deficiency anemia, treated with IV Venofer during admission, advised to follow up with PCP for further management after discharge. He did have acute kidney injury secondary to hypotension due to sepsis however it resolved during admission. Repeat BNP next week to continue to monitor renal function. He chronically uses 4 L O2 via nasal cannula at home for his chronic hypoxic respiratory failure, he follows closely outpatient with pulmonology. Dis[facility] to [facility] facility. Discussed with the attending MD. Discharge Day Progress Note 02/17/25 Hemodynamically stable. No chest pain, shortness of breath, fever, chills, nausea, vomiting, palpitations, or abdominal pain reported. No events reported overnight. Review of Systems Constitutional: Positive for activity change, appetite change and fatigue. Negative for chills and fever. Respiratory: Negative for cough, shortness of breath and wheezing. Cardiovascular: Negative for chest pain and leg swelling. Gastrointestinal: Negative for abdominal pain, blood in stool, constipation, diarrhea, nausea and vomiting. Genitourinary: Negative for difficulty urinating. Musculoskeletal: Positive for gait problem. Skin: Negative for rash and wound. Neurological: Positive for weakness. Negative for dizziness and headaches. Psychiatric/Behavioral: Negative for sleep disturbance. BP 116/58 Pulse 82 Temp 36.8 C (98.2 F) (Oral) Resp 18 Ht 182.9 cm (6') Wt 99.7 kg (219 lb 12.8 oz) SpO2 95% BMI 29.81 kg/m Temp: [36.4 C (97.5 F)-37.4 C (99.4 F)] 36.8 C (98.2 F) Pulse: [80-98] 82 Resp: [18] 18 BP: (107-128)/(58-88) 116/58 SpO2: [95 %-98 %] 95 % O2 Device: Nasal cannula O2 Flow Rate (L/min): [4 L/min] 4 L/min Intake/Output Summary (Last 24 hours) at 02/17/2025 1546 Last data filed at 02/17/2025 1132 Gross per 24 hour Intake 750 ml Output 3685 ml Net -2935 ml Physical Exam Constitutional: General: He is not in acute distress. Cardiovascular: Rate and Rhythm: Normal rate and regular rhythm. Heart sounds: Normal heart sounds. Pulmonary: Effort: Pulmonary effort is normal. Breath sounds: Decreased breath sounds present. No wheezing, rhonchi or rales. Abdominal: General: Abdomen is flat. Palpations: Abdomen is soft. Tenderness: There is no abdominal tenderness. Musculoskeletal: Right lower leg: No edema. Left lower leg: Edema present. Skin: General: Skin is warm and dry. Capillary Refill: Capillary refill takes less than 2 seconds. Coloration: Skin is not pale. Findings: No rash. Comments: RLE & LLE wounds present-see media tab Neurological: General: No focal deficit present. Mental Status: Mental status is at baseline. Motor: Weakness present. Psychiatric: Behavior: Behavior is cooperative. Code Status: DNRCCA DNI Labs Recent Results (from the past 48 hours) Magnesium Collection Time: 02/16/25 4:47 AM Result Value Ref Range Magnesium 2.0 1.8 - 2.6 mg/dL Comprehensive metabolic panel Collection Time: 02/16/25 4:47 AM Result Value Ref Range Sodium 141 134 - 146 mmol/L Potassium, Bld 3.6 3.5 - 5.0 mmol/L Chloride 105 98 - 109 mmol/L CO2 28 22 - 32 mmol/L Anion gap 8 5 - 15 mmol/L BUN 10 5 - 27 mg/dL Creatinine 0.45 (L) 0.60 - 1.30 mg/dL Glucose 96 65 - 99 mg/dL Calcium 8.4 (L) 8.5 - 10.5 mg/dL Total Protein 5.9 (L) 6.0 - 8.0 g/dL Albumin 2.7 (L) 3.2 - 5.3 g/dL Alkaline Phosphatase 57 39 - 130 U/L AST 16 0 - 41 U/L ALT 16 0 - 40 U/L Total bilirubin 0.3 0.3 - 1.2 mg/dL eGFR (CKD-EPI)non-race dependent >90 >59 ml/min/1.73sq.m CBC auto differential Collection Time: 02/16/25 4:47 AM Result Value Ref Range White Blood Cells 6.3 4.0 - 11.0 X10E9/L RBC count 2.84 (L) 4.10 - 5.70 X10E12/L Hemoglobin 8.4 (L) 13.0 - 17.0 g/dL Hematocrit 25.3 (L) 39 - 49 % MCV 89 80 - 100 fL MCH 29.7 27 - 34 pg MCHC 33.3 32 - 36 g/dL RDW 14.5 11.5 - 15.0 % Platelets 92 (L) 150 - 450 X10E9/L MPV 8.6 7 - 12 fL % neutrophils 73.3 % % lymphocytes 7.8 % % monocytes 12.4 % % eosinophils 5.8 % % Basophils 0.7 % Neutrophils Absolute (A) 4.6 1.5 - 6.6 X10E9/L Lymphocytes Absolute 0.5 (L) 1.0 - 3.5 X10E9/L Monocytes Absolute 0.8 0 - 0.9 X10E9/L Eosinophils Absolute 0.4 0.0 - 0.4 X10E9/L Basophils Absolute 0.0 0.0 - 0.2 X10E9/L Magnesium Collection Time: 02/17/25 5:31 AM Result Value Ref Range Magnesium 1.8 1.8 - 2.6 mg/dL Comprehensive metabolic panel Collection Time: 02/17/25 5:31 AM Result Value Ref Range Sodium 140 134 - 146 mmol/L Potassium, Bld 3.8 3.5 - 5.0 mmol/L Chloride 103 98 - 109 mmol/L CO2 30 22 - 32 mmol/L Anion gap 7 5 - 15 mmol/L BUN 17 5 - 27 mg/dL Creatinine 0.41 (L) 0.60 - 1.30 mg/dL Glucose 98 65 - 99 mg/dL Calcium 8.4 (L) 8.5 - 10.5 mg/dL Total Protein 6.0 6.0 - 8.0 g/dL Albumin 2.9 (L) 3.2 - 5.3 g/dL Alkaline Phosphatase 56 39 - 130 U/L AST 21 0 - 41 U/L ALT 14 0 - 40 U/L Total bilirubin 0.3 0.3 - 1.2 mg/dL eGFR (CKD-EPI)non-race dependent >90 >59 ml/min/1.73sq.m CBC auto differential Collection Time: 02/17/25 5:31 AM Result Value Ref Range White Blood Cells 6.5 4.0 - 11.0 X10E9/L RBC count 2.91 (L) 4.10 - 5.70 X10E12/L Hemoglobin 8.6 (L) 13.0 - 17.0 g/dL Hematocrit 25.9 (L) 39 - 49 % MCV 89 80 - 100 fL MCH 29.5 27 - 34 pg MCHC 33.1 32 - 36 g/dL RDW 14.9 11.5 - 15.0 % Platelets 154 150 - 450 X10E9/L MPV 9.6 7 - 12 fL Myelocyte 2.0 % Metamyelocyte 1.0 % Band 6.0 % Seg neutrophil 71.0 % Lymphocyte 9.0 % Monocytes 6.0 % Eosinophil 5.0 % Neutrophils Absolute (M) 5.0 1.5 - 6.6 X10E9/L Lymphocytes Absolute 0.6 (L) 1.0 - 3.5 X10E9/L Monocytes Absolute 0.4 0 - 0.9 X10E9/L Eosinophils Absolute 0.3 0.0 - 0.4 X10E9/L Polychromasia 1+ (A) NONE^NONE Ovalocytes 1+ (A) NONE^NONE Radiology CT abdomen and pelvis with contrast Result Date: 02/16/2025 Narrative: Study: CT abdomen and pelvis with contrast [...] Yrn Navarro MD on 02/16/2025 12:09 PM MR ankle left without contrast Result Date: 02/13/2025 Narrative: MR LEFT ANKLE CLINICAL INFORMATION: Osteomyelitis, infection [...] Noé Dewitt MD on 02/13/2025 1:05 PM X-ray tibia fibula right minimum 2 views Result Date: 02/11/2025 Narrative: Exam: 2 views of the right lower leg dated 02/11/2025. HISTORY: Right lower leg amputated 2 weeks ago. Clinical concern for osteomyelitis. COMPARISON: None. IMPRESSION: No radiographic evidence for osteomyelitis in the stump of the right tibia and right fibula. Generalized osteopenia. No soft tissue gas. Finalized by Ronda Calvillo MD on 02/11/2025 8:29 PM X-ray chest 1 view Result Date: 02/11/2025 Narrative: CLINICAL INFORMATION: Sepsis COMPARISON: Chest radiograph dated [...] Ronda Calvillo MD on 02/11/2025 8:20 PM Vas art doppler lwr bilat mult lev/PVR Result Date: 01/25/2025 Narrative: Right: Essentially normal PVR waveform contour at [...] at the phone number beside their name. DISCHARGE INSTRUCTION Disposition: assisted facility Condition: Stable Activity: activity as tolerated Diet: Adult diet Regular Texture Adult nutrition supplements Follow up: Hudson Rios MD within 7-14 days. Wound care Vascular Infectious disease Labs/Imaging/Pathology: BMP Discharge Medications: Medication List START taking these medications Instructions Last Dose Given Next Dose Due amoxicillin-pot clavulanate 875-125 mg per tablet Commonly known as: AUGMENTIN Take 1 tablet by mouth in the morning and 1 tablet before bedtime. Do all this for 7 days. CHANGE how you take these medications Instructions Last Dose Given Next Dose Due acetaminophen 500 mg tablet Commonly known as: TYLENOL EXTRA STRENGTH What changed: when to take this Take 2 tablets (1,000 mg total) by mouth every 6 (six) hours. CONTINUE taking these medications Instructions Last Dose Given Next Dose Due ascorbic acid 500 mg tablet Commonly known as: VITAMIN C Take 1 tablet (500 mg total) by mouth in the morning. aspirin 81 mg chewable tablet Chew 1 tablet (81 mg total) and swallow in the morning. atorvastatin 20 mg tablet Commonly known as: LIPITOR Take 1 tablet (20 mg total) by mouth in the morning and 1 tablet (20 mg total) before bedtime. carvediloL 6.25 mg tablet Commonly known as: COREG Take 1 tablet (6.25 mg total) by mouth in the morning and 1 tablet (6.25 mg total) before bedtime. cholecalciferol 50,000 units capsule Commonly known as: VITAMIN D3 Take 1 capsule (50,000 Units total) by mouth once a week. citalopram 40 mg tablet Commonly known as: CeleXA Take 1 tablet (40 mg total) by mouth in the morning. ferrous sulfate 325 (65 FE) MG tablet Take 1 tablet (325 mg total) by mouth daily with breakfast. furosemide 20 mg tablet Commonly known as: LASIX Take 1 tablet (20 mg total) by mouth 2 (two) times a day. oxygen Inhale 3-4 L/min as needed. tamsulosin 0.4 mg capsule Commonly known as: FLOMAX Take 1 capsule (0.4 mg total) by mouth nightly. zinc sulfate 50 mg zinc (220 mg) capsule Commonly known as: ZINCATE Take 1 capsule (220 mg total) by mouth in the morning. STOP taking these medications potassium chloride 10 MEQ CR tablet Commonly known as: K-TAB,KLOR-CON potassium chloride 20 mEq packet Commonly known as: KLOR-CON Where to Get Your Medications Information about where to get these medications is not yet available Ask your nurse or doctor about these medications amoxicillin-pot clavulanate 875-125 mg per tablet >30 minutes were spent on discharging this patient. VERONIKA BUTLER 02/17/2025 3:[address] [facility] Phys[facility] Internal Medicine 7AM-7PM & 7PM-7AM: EpicChat or page through [employer]. VERONIKA Butler 02/17/25 [id number] Attending Addendum: I Dr Kena Lee, personally performed a face to face diagnostic evaluation on this patient. I have reviewed the note authored by the advance practice provider including history, review of systems, physical examination, medical decision making and agree with the assessment and plan as written. I have seen and evaluated the patient,I have repeated the borden portions of the physical exam and concur with the KAE findings.I have reviewed all laboratory findings and imaging reprts/films.I agree with the plan as noted. documented in this encounter [facility] 02-17-2025 Hospital Discharge instructions VERONIKA Butler - 02/17/2025 3:35 PM EDT Please follow up with the primary care provider for further management of your iron-deficiency anemia Buttock/gluteal cleft Wash with soap and water and pat dry. Apply Triad ointment. Ok for foam dressing if desired. Do not scrub Triad off each time-just wipe away soiled layer and apply more, Left lower back wound Wash with soap and water and pat dry. Apply foam dressing. Right BKA stump wound/inicison: Cleanse with soap and water, rinse, pat dry. Apply silver alginate (ribbon) to incision, cover with ABD pad, secure with Kerlix and Edward wrap. Repeat daily and prn. Left medial and lateral ankle wounds: Cleanse with soap and water, rinse, pat dry. Apply silver alginate to wound bed (cut to fit), cover with ABD pad, secure with Kerlix. Repeat daily and prn. Elevate left lower leg, float heel. [facility] Progress note Formatting of t his note might be different from the original. DISCHARGE PLANNING NOTE Prior Auth approved for admission to : [facility]/ [facility], [place], [place] (P# ; F# ) Approval # [id number] Valid for Dates: 02/17/2025- 02/23/2025 [facility] 02-17-2025 Progress note Formatting of t his note might be different from the original. DISCHARGE PLANNING NOTE Discharge to [place] pending insurance auth. [facility] transport. [facility] submitted auth this AM 02/17. SW will continue to follow for additional needs - EDUARDO GALVAN 02/17/25 10:23 AM informed auth was approved - EDUARDO GALVAN 02/17/25 3:02 PM 7:30 transport scheduled to [place]. Facility informed. Family informed. Patient informed and agreeable. Will send [facility] when able - EDUARDO GALVAN 02/17/25 3:08 PM SOREN, ROMAN sent to [place] - EDUARDO GALVAN 02/17/25 4:00 PM [employer] 02-17-2025 Progress note Formatting of t his note might be different from the original. DISCHARGE PLANNING NOTE Prior auth submitted to: [employer] Via: [employer] On behalf of : [facility]/ [facility] [place], [place] (P# ; F# ) Ref # [id number] [employer] 02-17-2025 Plan of care note Problem: Pain Goal: Patient goal is pain score less than 4, able to rest, and participant in treatment plan as appropriate Description: INTERVENTIONS: 1. Encourage patient or legal healthcare representative to report early pain and ask for pain medicine when needed 2. Assess pain using appropriate pain scale and include the scale used when documenting 3. Administer analgesics based on type and severity of pain and evaluate response within appropriate time frame 4. Implement non-pharmacological measures as appropriate and evaluate response 5. Consider cultural and social influences on pain and pain management 6. Notify LIP if interventions ineffective or patient reports new pain 7. Monitor vital signs including pulse ox, end-tidal CO2 based on pain intervention 8. Reassess pain per policy 9. Teach patient or legal healthcare representative interventions for comforting Outcome: Progressing Note: Evaluation of progress towards goal: Pain meds as needed Problem: Discharge Planning Goal: Discharge to post-acute care, other facility, or home with appropriate resources Description: Patient's goal is: INTERVENTIONS 1. Conduct assessment to determine patient/family and health care team treatment goals, and need for post-acute services based on payer coverage, community resources, and patient preferences, and barriers to discharge 2. Coordinate with Social work, Care Navigation, and Utilization Review to arrange appropriate level of services according to patient's needs based on patient preference and payer coverage in collaboration with the physician and health care team 3. Address psychosocial, clinical, and financial barriers to discharge as identified in assessment in conjunction with the patient/family and health care team 4. Consult appropriate ancillary services (i.e.. PT/OT/ST, etc) as needed 5. Communicate with and update the patient/family, physician, and health care team regarding progress on the discharge plan 6. Identify discharge learning needs (meds, wound care, etc). 7. Arrange for needed discharge transportation as appropriate Outcome: Progressing Note: Evaluation of progress towards goal: DC to SNF when ready [facility] 02-17-2025 Plan of care note Problem: Pain Goal: Patient goal is pain score less than 4, able to rest, and participant in treatment plan as appropriate Description: INTERVENTIONS: 1. Encourage patient or legal healthcare representative to report early pain and ask for pain medicine when needed 2. Assess pain using appropriate pain scale and include the scale used when documenting 3. Administer analgesics based on type and severity of pain and evaluate response within appropriate time frame 4. Implement non-pharmacological measures as appropriate and evaluate response 5. Consider cultural and social influences on pain and pain management 6. Notify LIP if interventions ineffective or patient reports new pain 7. Monitor vital signs including pulse ox, end-tidal CO2 based on pain intervention 8. Reassess pain per policy 9. Teach patient or legal healthcare representative interventions for comforting Outcome: Progressing Note: Evaluation of progress towards goal: medicated for pain Problem: Safety Goal: Patient will be injury free during hospitalization Description: INTERVENTIONS: 1. Assess patient's risk for falls and implement fall prevention plan of care per policy 2. Provide and maintain a safe environment 3. Proper use of double Identifiers 4. Medication administration using the 5 rights 5. Hand hygiene 6. Specimens are labeled at the bedside 7. Instruct patient/ patient healthcare representative about use of safety devices 8. Include patient/ patient healthcare representative in decisions related to safety Outcome: Progressing Note: Evaluation of progress towards goal: remains free of injury. Safety maintained. Problem: Infection Goal: Absence of infection during hospitalization Description: INTERVENTIONS 1. Assess and monitor for signs and symptoms of infection. 2. Monitor lab/diagnostic results. 3. Monitor all insertion sites i.e., indwelling lines, tubes and drains. 4. Monitor endotracheal (as able) and nasal secretions for changes in amount and color. 5. Administer medications as ordered. 6. Instruct and encourage patient and family to use good hand hygiene technique. 7. Identify and instruct patient/patient healthcare representative in use of appropriate isolation precautions for identified infection/symptoms. 8. Provide and discuss with patient/patient healthcare representative on educational MDRO sheet. 9. Encourage and monitor nutritional status daily and consult enterprise infrastructure architect if indicated. 10. Implement neutropenic guidelines as needed. Outcome: Progressing Note: Evaluation of progress towards goal: PT lab values and vitals monitored for signs of infection. IV antibiotics given as scheduled Problem: Knowledge Deficit Goal: Patient/patient healthcare representative demonstrates understanding of disease process, treatment plan, medications, and discharge instructions Description: INTERVENTIONS 1. Complete learning assessment and assess knowledge base 2. Provide teaching at level of understanding 3. Provide teaching via preferred learning method(s) Outcome: Progressing Note: Evaluation of progress towards goal: Verbalized understanding of disease process and treatments. Problem: Discharge Planning Goal: Discharge to post-acute care, other facility, or home with appropriate resources Description: Patient's goal is: INTERVENTIONS 1. Conduct assessment to determine patient/family and health care team treatment goals, and need for post-acute services based on payer coverage, community resources, and patient preferences, and barriers to discharge 2. Coordinate with Social work, Care Navigation, and Utilization Review to arrange appropriate level of services according to patient's needs based on patient preference and payer coverage in collaboration with the physician and health care team 3. Address psychosocial, clinical, and financial barriers to discharge as identified in assessment in conjunction with the patient/family and health care team 4. Consult appropriate ancillary services (i.e.. PT/OT/ST, etc) as needed 5. Communicate with and update the patient/family, physician, and health care team regarding progress on the discharge plan 6. Identify discharge learning needs (meds, wound care, etc). 7. Arrange for needed discharge transportation as appropriate Outcome: Progressing Note: Evaluation of progress towards goal: patient will be discharge to SNF Problem: Moderate - High Risk Fall Score Description: Mejia Fall Score of =/> 25 or indicated by [facility] Assessment Goal: Patient should be free from fall Description: Interventions: 1. [place] to environment 2. Hourly rounds addressing the 4 P's (Pain, Positioning, Possessions, Potty) 3. Clear area of hazards (spills, clutter, electrical cords, unnecessary equipment) 4. Place equipment (bed & TV controls, call light, phone, urinal) within reach 5. Encourage patient to wear glasses and hearing aides as appropriate 6. Maintain bed in lowest position 7. Lock wheels on bed/wheelchair 8. Provide adequate lighting, including night light 9. Assess need for additional bedding, food/fluids, pain med's prior to sleep/routinely 10. Provide gripper slippers or personal non-skid footwear 11. Teach patient and patient healthcare representative to maintain environment for safety and engage in all aspects of fall prevention program 12. Remind patient to call for help before getting out of bed 13. Initiate bed/chair/exit alarms supportive devices as appropriate, (chair wedge, no-skid floor mat, raised edge mattress, hip protectors) 14. Locate patient bed assignment for optimal visualization 15. Evaluate and identify Safe Patient Handling Equipment needs 16. Provide supervision when out of bed or chair 17. Utilize gait belt as needed to assist with ambulation 18. Place adaptive equipment (cane, walker) within reach 19. Request patient healthcare representative bring adaptive equipment/mobility aids from home or obtain and provide as needed 20. Consult pharmacy regarding effects of med's affecting mobility, cognition, and alternatives 21. Obtain physician order for PT if risk factors associated with mobility are present 22. Obtain physician order for OT as appropriate 23. Utilize diversional activities 24. Educate patient and patient healthcare representative how to maintain a safe environment during visitation times (notify nurse prior to leaving bedside) 25. Consider appropriateness of medical or non-medical language specialist 26. Set up voiding schedule as appropriate (every 2 hours) Outcome: Progressing Note: Evaluation of progress towards goal: Remains free of fall. Call light and personal belongings are within reach. Bed in low position and wheels are locked. Hourly rounding maintained. Problem: Potential for Compromised Skin Integrity Goal: Skin integrity is maintained or improved Description: Patient's goal is: INTERVENTIONS 1. Perform initial skin assessment on admission and as needed 2. Turn patient every 2 hours and PRN 3. Relieve pressure to bony prominences 4. Avoid shearing 5. Keep skin clean and dry 6. Alternate a full bath with partial baths for elderly 7. Apply lotion/moisturizer on skin 8. Monitor patient's hygiene practices 9. Float heels 10. Collaborate with interdisciplinary team and initiate plans and interventions as needed Outcome: Progressing Note: Evaluation of progress towards goal: Skin integrity maintained. Q 2 hours turns maintained. Goal: Patient's nutritional intake is adequate Description: Patient's goal is: INTERVENTIONS 1. Assess and monitor food intake and supplements, patient food preferences, nausea, vomiting, labs, oral cavity (gums, teeth, tongue, mucosa), proper denture fit, and cultural beliefs 2. Monitor for signs of hypoglycemia and hyperglycemia 3. Collaborate with interdisciplinary team and initiate plan and interventions as ordered 4. Monitor patient's weight 5. Assist patient with meals/food selection 6. Assist patient with eating 7. Allow adequate time for meals 8. Provide pleasant environment during mealtime 9. Increase social contact during mealtimes 10. Plan activities to conserve energy 11. Encourage/perform oral hygiene as appropriate 12. Encourage patient to take dietary supplement as ordered 13. Collaborate with clinical enterprise infrastructure architect 14. Include patient/ patient's healthcare representative in decisions related to nutrition Outcome: Progressing Note: Evaluation of progress towards goal: Patient encouraged to eat meals Problem: Urinary Incontinence Goal: Perineal skin integrity is maintained or improved Description: INTERVENTIONS 1. Assess genitourinary system, perineal skin, labs (urinalysis), and history of incontinence to include past management, aggravating, and alleviating factors 2. Keep skin clean and dry 3. Apply skin protectant 4. Develop skin care regimen 5. Provide privacy when changing patients incontinence device to maintain their dignity 6. Consider placing an indwelling catheter 7. Collaborate with interdisciplinary team and initiate plans and interventions as needed Outcome: Progressing Note: Evaluation of progress towards goal: perineal skin integrity maintained. Ointments applied Problem: Genitourinary - Adult Goal: Absence of urinary retention Description: INTERVENTIONS: 1. Assess patient s ability to void and empty bladder 2. Monitor intake/output and perform bladder scan as ordered 3. Place urinary catheter per LIP order if needed 4. Discuss with LIP medications to alleviate retention as needed 5. Discuss and document need for catheter daily 6. Prevention of urinary infection per policy Outcome: Progressing Note: Evaluation of progress towards goal: huber catheter patent Problem: Metabolic/Fluid and Electrolytes - Adult Goal: Hemodynamic stability and optimal renal function maintained Description: Patient's goal is: INTERVENTIONS 1. Monitor labs and assess for signs and symptoms of volume excess or deficit 2. Monitor intake, output and patient weight 3. Monitor urine specific gravity, serum osmolarity and serum sodium as indicated or ordered 4. Monitor response to interventions for patient's volume status, including labs, urine output, blood pressure (other measures as available) 5. Encourage oral intake as appropriate 6. Instruct patient on fluid and nutrition restrictions as appropriate Outcome: Progressing Note: Evaluation of progress towards goal: optimal renal function maintained Problem: Skin/Tissue Integrity - Adult Goal: Incisions, wounds, or drain sites healing without S/S of infection Description: INTERVENTIONS 1. ADMISSION & EVERY SHIFT: Assess and document risk factors for pressure ulcer development utilizing the David/David Q scale 2. Assess and document skin integrity 3. Assess and document dressing/incision, wound bed, drain sites and surrounding tissue 4. Implement wound care per orders 5. Initiate isolation precautions as appropriate 6. Initiate high risk precautions Outcome: Progressing Note: Evaluation of progress towards goal: wounds are healing without S/S of infection [facility] 02-16-2025 History of Present illness Narrative Images from the original note were not included. [facility] JOSE C BRASWELL [facility] INTERNAL MEDICINE [address] [facility] [id number] Hospital Medicine Progress Note Patient: Kj Lei Date of : 1945 Room: 59[facility] PCP: Hudson Rios MD Admission date: 02/14/2025 5:25 PM Encounter date: 02/16/25 Hospital Day: 3 SUBJECTIVE Chief complaints: No chief complaint on file. Interval History: Status: stable. No overnight events. Patient resting up in bed at time of assessment. Final antibiotic plan in place per Infectious Disease, he is medically ready for discharge at this time. Review of Systems Constitutional: Positive for activity change, appetite change and fatigue. Negative for chills and fever. Respiratory: Negative for cough, shortness of breath and wheezing. Cardiovascular: Negative for chest pain and leg swelling. Gastrointestinal: Negative for abdominal pain, blood in stool, constipation, diarrhea, nausea and vomiting. Genitourinary: Negative for difficulty urinating. Musculoskeletal: Positive for gait problem. Skin: Negative for rash and wound. Neurological: Positive for weakness. Negative for dizziness and headaches. Psychiatric/Behavioral: Negative for sleep disturbance. OBJECTIVE BP 114/67 Pulse 80 Temp 36.4 C (97.5 F) (Oral) Resp 18 Ht 182.9 cm (6') Wt 99.7 kg (219 lb 12.8 oz) SpO2 97% BMI 29.81 kg/m Temp: [36.3 C (97.3 F)-37.6 C (99.6 F)] 36.4 C (97.5 F) Pulse: [74-98] 80 Resp: [16-18] 18 BP: (103-138)/(63-79) 114/67 SpO2: [96 %-99 %] 97 % O2 Device: Nasal cannula O2 Flow Rate (L/min): [4 L/min] 4 L/min Intake/Output Summary (Last 24 hours) at 02/16/2025 1817 Last data filed at 02/16/2025 0800 Gross per 24 hour Intake 120 ml Output 3050 ml Net -2930 ml Physical Exam Constitutional: General: He is not in acute distress. Cardiovascular: Rate and Rhythm: Normal rate and regular rhythm. Heart sounds: Normal heart sounds. Pulmonary: Effort: Pulmonary effort is normal. Breath sounds: Decreased breath sounds present. No wheezing, rhonchi or rales. Abdominal: General: Abdomen is flat. Palpations: Abdomen is soft. Tenderness: There is no abdominal tenderness. Musculoskeletal: Right lower leg: No edema. Left lower leg: Edema present. Skin: General: Skin is warm and dry. Capillary Refill: Capillary refill takes less than 2 seconds. Coloration: Skin is not pale. Findings: No rash. Comments: RLE & LLE wounds present-see media tab Neurological: General: No focal deficit present. Mental Status: Mental status is at baseline. Motor: Weakness present. Psychiatric: Behavior: Behavior is cooperative. Medications Scheduled: atorvastatin, 20 mg, oral, Nightly carvediloL, 6.25 mg, oral, BID cefTRIAXone (ROCEPHIN) IV, 2,000 mg, intravenous, Q24H citalopram, 40 mg, oral, Daily enoxaparin (LOVENOX) injection, 40 mg, subcutaneous, Daily ferrous sulfate, 325 mg, oral, Daily with breakfast iron sucrose, 100 mg, intravenous, Daily sodium chloride, 3 mL, intravenous, Q12H DOROTHY tamsulosin, 0.4 mg, oral, Nightly Infusions: dextrose 5 % in water, 100 mL/hr sodium chloride 0.9 %, 20 mL/hr As Needed: acetaminophen acetaminophen albuterol dextrose dextrose 5 % in water dextrose 50 % in water (D50W) glucagon (human recombinant) magnesium sulfate magnesium sulfate ondansetron potassium chloride OR potassium chloride OR potassium chloride IV (Adult) sennosides-docusate sodium sodium chloride sodium chloride sodium chloride sodium chloride 0.9 % Allergies: Adhesive tape-silicones Code Status: DNRCCA DNI Labs Recent Results (from the past 24 hours) Magnesium Collection Time: 02/16/25 4:47 AM Result Value Ref Range Magnesium 2.0 1.8 - 2.6 mg/dL Comprehensive metabolic panel Collection Time: 02/16/25 4:47 AM Result Value Ref Range Sodium 141 134 - 146 mmol/L Potassium, Bld 3.6 3.5 - 5.0 mmol/L Chloride 105 98 - 109 mmol/L CO2 28 22 - 32 mmol/L Anion gap 8 5 - 15 mmol/L BUN 10 5 - 27 mg/dL Creatinine 0.45 (L) 0.60 - 1.30 mg/dL Glucose 96 65 - 99 mg/dL Calcium 8.4 (L) 8.5 - 10.5 mg/dL Total Protein 5.9 (L) 6.0 - 8.0 g/dL Albumin 2.7 (L) 3.2 - 5.3 g/dL Alkaline Phosphatase 57 39 - 130 U/L AST 16 0 - 41 U/L ALT 16 0 - 40 U/L Total bilirubin 0.3 0.3 - 1.2 mg/dL eGFR (CKD-EPI)non-race dependent >90 >59 ml/min/1.73sq.m CBC auto differential Collection Time: 02/16/25 4:47 AM Result Value Ref Range White Blood Cells 6.3 4.0 - 11.0 X10E9/L RBC count 2.84 (L) 4.10 - 5.70 X10E12/L Hemoglobin 8.4 (L) 13.0 - 17.0 g/dL Hematocrit 25.3 (L) 39 - 49 % MCV 89 80 - 100 fL MCH 29.7 27 - 34 pg MCHC 33.3 32 - 36 g/dL RDW 14.5 11.5 - 15.0 % Platelets 92 (L) 150 - 450 X10E9/L MPV 8.6 7 - 12 fL % neutrophils 73.3 % % lymphocytes 7.8 % % monocytes 12.4 % % eosinophils 5.8 % % Basophils 0.7 % Neutrophils Absolute (A) 4.6 1.5 - 6.6 X10E9/L Lymphocytes Absolute 0.5 (L) 1.0 - 3.5 X10E9/L Monocytes Absolute 0.8 0 - 0.9 X10E9/L Eosinophils Absolute 0.4 0.0 - 0.4 X10E9/L Basophils Absolute 0.0 0.0 - 0.2 X10E9/L Radiology CT abdomen and pelvis with contrast Result Date: 02/16/2025 Study: CT abdomen and pelvis with [...] Yrn Navarro MD on 02/16/2025 12:09 PM HOSPITAL PROBLEM LIST Principal Problem: Sepsis ([facility]) Active Problems: Essential hypertension EMMA treated with BiPAP Chronic respiratory failure with hypoxia and hypercapnia ([facility]) Paraplegia ([facility]) Below-knee amputation of right lower extremity ([facility]) Sepsis with acute renal failure (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) Venous stasis ulcer of left lower extremity (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) Surgical wound present ASSESSMENT & PLAN Sepsis w/acute renal failure due to Proteus mirabilis bacteremia secondary to stump infection s/p R BKA 01/24/25, acute cystitis due to Proteus mirabilis Initially meeting SIRS criteria Vascular, infectious disease consulted Blood cultures 02/11 2/2 positive Proteus mirabilis Repeat blood cultures 02/12 NGTD Procalcitonin improving 15.22 today Patient will d/c with Augmentin until 02/24/25 L medial/lateral ankle wounds, Colostomy MRI completed, negative for osteomyelitis Wound care following Continue dressing changes as instructed by Wound Care Thrombocytopenia, normocytic normochromic anemia, iron-deficiency anemia Platelets 92 No active signs of bleeding Anemia panel completed IV Venofer Acute kidney injury secondary to hypotension due to sepsis-RESOLVED BP stable Creatinine peaked at 1.62, today 0.45 Avoid nephrotoxic agents Hypertension, Hyperlipidemia Atorvastatin Coreg Patient is not having procedure, resume aspirin No recent echo on file Chronic hypoxic respiratory failure Chronically uses 4 L O2 via nasal cannula at home Follows outpatient with pulmonology EMMA Continue home bipap DC planning: SNF, medically ready for discharge. VERONIKA BUTLER 02/16/2025 6:17 PM [facility] 7AM-7PM & 7PM-7AM: EpicChat or page through On-Call F[employer]. VERONIKA Butler 02/16/25 1823 Attending Addendum: I Dr Kena Lee, personally performed a face to face diagnostic evaluation on this patient. I have reviewed the note authored by the advance practice provider including history, review of systems, physical examination, medical decision making and agree with the assessment and plan as written. I have seen and evaluated the patient,I have repeated the borden portions of the physical exam and concur with the KAE findings.I have reviewed all laboratory findings and imaging reprts/films.I agree with the plan as noted. Images from the original note were not included. Division of Infectious Diseases - Progress Note Academic Team Please contact us via [email or web address] chat. After hours, call [phone] Patient name: Kj Lei Patient Today's Date and Time: 02/16/2025, 2:35 PM Admission Date: 02/14/2025 Impression : Proteus mirabilis bacteremia from BCx x2 collected 02/11/25 Febrile, tachycardia, tachypnea have all resolved Given cefepime and vancomycin at [facility] Now on ceftriaxone 2 g Q24H Proteus mirabilis wound culture collected 02/12/25 with similar susceptibilities of BCx Huber catheter and colostomy bag in place Sacral wound noted, chronic Recommendations: Continue ceftriaxone 2 g Q24H for a minimum of 14 days as Proteus mirabilis susceptibilities have come back showing this is an appropriate treatment course Wound culture, blood culture, and urine culture with Proteus mirabilis BKA site looked to be healing appropriately with no apparent infection Augmentin 875-125 BID for 14 days since beginning of antibiotic course. Complete on 02/24/25 for discharge recommendations CTAP negative for any infective processes. BCx x2 collected on 02/15 shows NGTD for less than 24 H Continue monitoring fever curve Subjective Interval History: Patient was seen and examined at bedside, no acute events overnight, vital signs are stable. Patient was much more lucid today than he was yesterday. Explained to me that he straight caths at home usually, and when he was at the senior care it was very difficult to straight cath while lying in bed as he is used to straight cathing while sitting in the chair and is able to see more clearly. He states there has been a couple of times where the urine would splash all over him, and likely on the stump as well. Patient has no concerns during the encounter, and was appreciative of all questions being answered. Our consultation addresses :complex antimicrobial therapy counseling and treatment Objective Physical Examination : BP 115/66 Pulse 74 Temp 37.1 C (98.7 F) (Oral) Resp 18 Ht 182.9 cm (6') Wt 99.7 kg (219 lb 12.8 oz) SpO2 96% BMI 29.81 kg/m Temperature Range: Temp: 37.1 C (98.7 F) Temp Av.9 C (98.4 F) Min: 36.3 C (97.3 F) Max: 37.6 C (99.6 F) General Appearance: Awake, alert, and in no apparent distress, nontoxic Eyes: Sclera anicteric ENT: Oropharynx clear, without erythema, exudate, no thrush. Neck: Supple, without lymphadenopathy. Pulmonary/Chest: Clear to auscultation, without wheezes, rales, no rhonchi Cardiovascular: Regular rate and rhythm without murmurs Abdomen: soft, non-tender, nondistended, no palpable masses no organomegaly; normal bowel sounds Extremities: No cyanosis, edema, no joint effusions. Neurologic: Alert and oriented x 3, strength and sensation grossly normal Skin: No rash no lesions. Laboratory data: I have independently reviewed the following labs: Results from last 7 days Lab Units 02/16/25 0447 02/15/25 0723 02/14/25 0543 WBC X10E9/L 6.3 6.3 10.8 HEMOGLOBIN g/dL 8.4* 8.4* 8.9* HEMATOCRIT % 25.3* 25.6* 26.7* MCV fL 89 90 90 PLATELETS X10E9/L 92* 81* 85* NEUTROS ABS X10E9/L 4.6 4.7 9.3* LYMPHS ABS AUTO X10E9/L 0.5* 0.4* 0.4* MONOS ABS AUTO X10E9/L 0.8 0.8 0.8 EOS ABS AUTO X10E9/L 0.4 0.4 0.2 BASOS ABS AUTO X10E9/L 0.0 0.1 0.1 Results from last 7 days Lab Units 02/16/25 0447 02/15/25 0723 02/14/25 0543 SODIUM mmol/L 141 140 138 POTASSIUM mmol/L 3.6 3.9 3.6 CHLORIDE mmol/L 105 106 106 CO2 mmol/L 28 27 25 BUN mg/dL 10 18 46* CREATININE mg/dL 0.45* 0.46* 1.62* CALCIUM mg/dL 8.4* 8.4* 8.4* ALK PHOS U/L 57 61 67 ALT U/L 16 21 37 AST U/L 16 17 24 Results from last 7 days Lab Units 02/15/25 0723 02/14/25 0543 02/12/25 1200 PROCALCITONIN ng/mL 15.22* 28.61* 65.59* Results from last 7 days Lab Units 02/12/25 0502 SPECIFIC GRAVITY GIOVANI 1.010 LEUKOCYTE ESTERASE GIOVANI MODERATE* UROBILINOGEN GIOVANI eu/dL 0.2 Imaging Studies: CT abdomen and pelvis with contrast Result Date: 02/16/2025 Study: CT abdomen and pelvis with [...] Yrn Navarro MD on 02/16/2025 12:09 PM I have personally reviewed the above studies. Cultures: Microbiology Results Procedure Component Value Units Date/Time Blood culture #2 [[id number]] Collected: 02/15/25 1404 Specimen: Blood Updated: 02/16/25 0239 Specimen Notes SUBOPTIMAL VOLUME OF BLOOD COLLECTED, RESULTS MAY BE AFFECTED. Culture NO GROWTH <24 HRS Blood culture #1 [[id number]] Collected: 02/15/25 1400 Specimen: Blood Updated: 02/16/25 0238 Specimen Notes SUBOPTIMAL VOLUME OF BLOOD COLLECTED, RESULTS MAY BE AFFECTED. Culture NO GROWTH <24 HRS Wound culture superficial includes gram stain [[id number]] (Abnormal) (Susceptibility) Collected: 02/12/25 1819 Specimen: Wound Swab Updated: 02/14/25 0759 Gram Stain Result 0 WHITE BLOOD CELLS/LPF 0 SQUAMOUS EPITHELIAL CELLS/LPF NO ORGANISMS SEEN Culture MODERATE PROTEUS MIRABILIS ALONG WITH RARE NORMAL SKIN ARY Susceptibility Proteus Mirabilis BRINA METHOD AMP/SULBACTAM <=2/1 Susceptible Ampicillin <=2 Susceptible Cefazolin (non-urinary) 4 Intermediate Cefazolin (urinary) 4 Susceptible Ceftriaxone <=0.25 Susceptible Ciprofloxacin <=0.06 Susceptible Gentamicin <=1 Susceptible Levofloxacin <=0.12 Susceptible PIPERACIL/TAZOBACTAM <=4 Susceptible Blood culture #2 [[id number]] Collected: 02/12/25 1017 Specimen: Blood Updated: 02/15/252121 Specimen Notes R HAND Culture NO GROWTH 3 DAYS Blood culture #1 [[id number]] Collected: 02/12/25 1011 Specimen: Blood Updated: 02/15/252122 Specimen Notes LFA Culture NO GROWTH 3 DAYS Urine culture [[id number]] (Abnormal) (Susceptibility) Collected: 02/12/25 0544 Specimen: Urine, Clean Catch Midstream Updated: 02/16/25 1135 Culture >100,000 ORGANISMS/mL PROTEUS MIRABILIS 50,000 to 100,000 ORGANISMS/mL MORGANELLA MORGANII <10,000 ORGANISMS/mL NORMAL URO GENITAL ARY Susceptibility Proteus Mirabilis BRINA METHOD AMP/SULBACTAM <=2/1 Susceptible Ampicillin <=2 Susceptible Cefazolin (non-urinary) 8 Resistant Cefazolin (urinary) 8 Susceptible Ceftriaxone <=0.25 Susceptible Ciprofloxacin <=0.06 Susceptible Gentamicin <=1 Susceptible Levofloxacin <=0.12 Susceptible Nitrofurantoin 128 Resistant PIPERACIL/TAZOBACTAM <=4 Susceptible TRIMETH/SULFAMETHOXAZOLE <=1/19 Susceptible Susceptibility Morganella Morganii BARRIENTOS GLASS METHOD BRINA METHOD Ampicillin >=32 Resistant Cefazolin (non-urinary) >=32 Resistant Cefazolin (urinary) >=32 Resistant Cefepime Susceptible Ceftriaxone Susceptible Ciprofloxacin <=0.06 Susceptible Gentamicin <=1 Susceptible Levofloxacin <=0.12 Susceptible Nitrofurantoin 128 Resistant PIPERACIL/TAZOBACTAM <=4 Susceptible TRIMETH/SULFAMETHOXAZOLE <=1/19 Susceptible Blood culture, peripheral #2 [[id number]] (Abnormal) Collected: 02/11/251944 Specimen: Blood Updated: 02/14/2517 Culture PROTEUS MIRABILIS FOR SUSCEPTIBILITY, SEE PREVIOUS REPORT. Blood culture, peripheral #1 [[id number]] (Abnormal) (Susceptibility) Collected: 02/11/251939 Specimen: Blood Updated: 02/14/25 0716 Culture PROTEUS MIRABILIS Proteus species detected by PCR. No resistance genes detected by PCR. Susceptibility Proteus Mirabilis BRINA METHOD AMP/SULBACTAM <=2/1 Susceptible Ampicillin <=2 Susceptible Cefazolin (non-urinary) 4 Intermediate Cefazolin (urinary) 4 Susceptible Ceftriaxone <=0.25 Susceptible Ciprofloxacin <=0.06 Susceptible Gentamicin <=1 Susceptible Levofloxacin <=0.12 Susceptible PIPERACIL/TAZOBACTAM <=4 Susceptible Medications: atorvastatin, 20 mg, oral, Nightly carvediloL, 6.25 mg, oral, BID cefTRIAXone (ROCEPHIN) IV, 2,000 mg, intravenous, Q24H citalopram, 40 mg, oral, Daily enoxaparin (LOVENOX) injection, 40 mg, subcutaneous, Daily ferrous sulfate, 325 mg, oral, Daily with breakfast iron sucrose, 100 mg, intravenous, Daily sodium chloride, 3 mL, intravenous, Q12H DOROTHY tamsulosin, 0.4 mg, oral, Nightly This progress note was completed using a voice senior qualitative researcher system. Every effort was made to ensure accuracy; however, inadvertent computerized senior qualitative researcher errors may be present. Thank you for allowing us to participate in the care of this patient. - Es Lee DO 02/16/25 2:35 PM [facility] Infectious Diseases Please contact us via [email or web address] chat Cosigned by David Arroyo DO at 02/16/2025 4:19 PM EDT Associated attestation - David Arroyo DO - 02/16/2025 4:19 PM EDT I performed a history and physical examination of the patient Kjdontrell Lei, I independently reviewed the laboratory work and imaging as well as other studies mentioned in the above note; I have discussed the management with the resident. I have reviewed the above note, I agree with the findings and plan of care with the following additions: With above, CT abdomen pelvis without gross intra-abdominal findings that would explain Proteus mirabilis bacteremia. More likely as patient explained he likely had some contamination of the right BKA site as he normally straight caths while sitting up. And his facility he was lying down and this may have led to some contamination of the wound and may explain why he has Proteus in blood urine and from superficial wound cultures. Can transitioned to oral Augmentin at time of discharge, we will require 2 weeks of therapy estimated end of therapy 02/24/2025 ID will sign off please page should further need arise Thank you for allowing us to participate in the care of this patient. David Arroyo DO [place] Infectious Disease [phone] Message me via [email or web address] secure chat documented in this encounter [employer] 02-16-2025 Progress note Formatting of t his note is different from the original. Physical Therapy Evaluation Discharge Recommendations PT Recommendations: Shelter Facility SNF/ECF Comments: Pt will benefit from additional skilled therapy to maximize level of functional indepedence and safety. 6 Clicks: Basic Mobility Turning from your back to your side while in a flat bed without using bed rails?: A lot Moving from lying on your back to sitting on side of flat bed without using bed rails?: A lot Moving to and from bed to a chair (including w/c)?: Total Standing up from a chair using your arms (e.g. w/c or bedside chair)?: Total To walk in hospital room?: Total Climbing 3-5 steps with a railing?: Total Scoring 6 Clicks: Basic Mobility Raw Score: 8 [facility] G Code Modifier: CM Therapy Plan Need for skilled Physical Therapy to address deficits in functional mobility due to a status decline resulting from sepsis. 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 Concern for infection s/p recent R BKA. Wound cultures growing proteus mirabilis. Transfer TTH for vascular consult Vascular - no sx intervention, continue abx per ID Wound care on board - also following L ankle wound (MRI neg for osteomyelitis) Dx: sepsis, L medial/ankle wounds Past Medical History: Diagnosis Date Anemia Chronic hypercapnic respiratory failure ([facility]) COPD (chronic obstructive pulmonary disease) ([facility]) Depression Disease of lung HTN (hypertension) Obesity EMMA (obstructive sleep apnea) Paraplegia ([facility]) Past Surgical History: Procedure Laterality Date AMPUTATION BELOW KNEE Right 01/24/2025 Performed by Abraham Pimentel MD at [facility] COLOSTOMY ESOPHAGOGASTRODUODENOSCOPY PILONIDAL CYST / SINUS EXCISION VEIN SURGERY Left 07/15/2019 LT SSV EVLT / PHLEBS PT Treatment/Interventions: Functional transfer training, UE strengthening/ROM, LE strengthening/ROM, Equipment eval/education, Balance, Bed mobility, Gait training, Functional activities, Endurance training PT Frequency: 4-5days/week PT Duration: LOS Patient Response to Treatment: Tolerated evaluation without adverse reaction Assessment Patient Assessment Therapy Problem List: Decreased ADL status, Decreased balance, Decreased endurance, Decreased mobility, Decreased UE strength, Decreased LE strength, Decreased LE ROM, Non-functional RLE, Non-functional LLE Patient Response to Treatment: Tolerated evaluation without adverse reaction Mood/Affect: Appropriate for circumstances Rehab Prognosis: Good, With continued PT status post acute discharge Visit RN Communication: Yes Medical Record Reviewed: Yes PT Type of Visit: Evaluation Reason For Medical Deferral: Off unit Off Unit: Testing (CT scan) Precautions Activity: early mobility - pass; okay to see per RN Equipment: repositioning sling, huber, colostomy, O2 Telemetry/Roll Icer: Yes Oxygen Used: 3L via NC Other: High fall risk, h/o paraplegia, 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, 4L O2 baseline, BLE external rotation / adduction at hips, knee contractures Pain Assessment Pain Assessment: No/denies pain Home Living Type of Home: House Home Layout: One level Stairs to Enter: ramp Bathroom Shower/Tub: (sponge bathes at baseline) Bathroom Toilet: (Pt has colostomy and Huber, was straight cathing at home.) Bathroom Equipment: Grab bars in shower, Shower chair, Hand-held shower, Grab bars around toilet Bathroom Accessibility: Accessible Home Equipment: Rolling walker, Wheelchair-manual, Wheelchair-electric, Home oxygen, Hospital bed (4L Home O2) Other : [facility] in Dec. Prior Function Lives With: Spouse (Pt lives with spouse when home prior to [facility] in Dec. Pt reports that has Parkinsons and is limited in amount of assistance she can provide.) Receives Help From: (Prior to SNF pt had personal investment adviser who came every 2 weeks. Pt reports limited support from family. States that he has friends who can help if needed.) Level of Mobility: Needs assistance with ADLs or functional transfers or gait Other: Prior to BKA pt was performing sliding board transfers assistance. Pt has required use of Iris lift at facility for transfers since BKA. Pt manages own upper body dressing and grooming as well as colostomy and straight cath. Homemaking Assistance: Needs assistance Meal Prep: (Facility staff completing all homemaking tasks. Does not drive at [place].) Vocational: Retired ([employer]) ADL / IADL Hand Dominance: Right Hearing / Speech / Vision Hearing: Within Functional Limits Speech: Within Functional Limits Current Vision: Wears glasses only for reading (and TV) Cognition Overall Cognitive Status: Within Functional Limits Orientation Level: Oriented X4 Sensation Overall Sensation Status: Consistent with premorbid status (Decreased sensation BLE's) Bed Mobility Supine to Sit: Mod assist, Right Sit to Supine: Mod assist Other: Completed with HOB elevated with increased time and effort. Pt able to initiate BLE's to EOB and mostly requires assistance with trunk progression. During return to [facility], pt required assist to lift legs into bed and was able to lowering of trunk. Pt supine at end of session with call light and needs in reach. RN updated. Transfers Other: Not assessed this date. Pt declined transfer to chair with maxi-gaetano. Gait Other: non-ambulatory at baseline Balance Sitting Balance: Static: Good (-) Sitting Balance: Dynamic: Fair (-) Other: Pt sat EOB approx 10 min. Intially required mod A to come to midline position from R sidelying. Pt has severe roto scoliosis that affects sitting posture. Able to progress quickly to CGA with BUE support. Posture Posture Evaluation: Exceptions to Functional Limits Spine: Scoliotic (rotational) RUE Assessment: (AROM shoulders limited to approx 60 degrees, audible krepatis heard during all movement, generalized weakness throughout per OT) LUE Assessment: (AROM shoulder limited to approx 80 degres. Generalized weakness throughout per OT) RLE Assessment: (Pt in chronic frog legged postioiong. Recent BKA on 01/17. R hip passive IR to neutral only. Knee extension lacks approx 90 degrees. Demonstrates grossly 2-/5 strength in hip/knee) LLE Assessment: (Pt in chronic frog legged position. L hip contratcted in ER. Knee ext lacks approx 80 degrees. Demonstrates grossly 2-/5 strength in hip/knee) Activity Tolerance Endurance: Tolerates <30 minutes activity WITHOUT vital sign changes Other: Pt on 3L O2. Requires frequent rest breaks. Plan Physical Therapy Care Plan Physical Therapy Care Plan (Active) Template: PT - Physical Therapy Problem: Activity Tolerance Dates: Start: 02/16/25 Disciplines: PT Goal: Tolerate > 30 minutes of activity WITH rest breaks Dates: Start: 02/16/25 Expected End: 02/23/25 Description: Patient to perform functional range/strengthening exercises to improve functional strength and endurance for improved independence and safe mobility. Disciplines: PT Problem: Bed Mobility Dates: Start: 02/16/25 Disciplines: PT Goal: Patient will perform bed mobility with Minimum Assist Dates: Start: 02/16/25 Expected End: 02/23/25 Description: Pt will perform supine<>sit demonstrating safe technique. Disciplines: PT Problem: Sitting Balance Dates: Start: 02/16/25 Disciplines: PT Goal: Improve balance to fair Dates: Start: 02/16/25 Expected End: 02/23/25 Description: Pt will demonstrate Fair dynamic sitting balance during functional UE activities with MAXINE support. Disciplines: PT Problem: Transfers Dates: Start: 02/16/25 Disciplines: PT Goal: Patient will perform transfers with Moderate Assist Dates: Start: 02/16/25 Expected End: 02/23/25 Description: Pt will initiate slide board transfers with min A. Disciplines: PT Physical Therapy Care Plan (Resolved) There are no resolved problems. 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 Occupational Therapy Evaluation Discharge Recommendations OT Recommendations : Shelter Facility SNF/ECF Comments: Pt to benefit from additional skilled services to address decreased strength, endurance, balance and functional transfers that are affecting his ability to engage in ADLs and mobility at his PLOF. 6 Clicks: Daily Activity Putting on and taking off regular lower body clothing?: Total Bathing (including washing, rinsing, drying)?: A lot Toileting, which includes using toilet, bedpan or urinal?: Total Putting on and taking off regular upper body clothing?: A little Taking care of personal grooming such as brushing teeth?: A little Eating meals?: None Scoring Daily Activity Raw Score: 14 [facility] G Code Modifier: CK Therapy Plan Need for skilled Occupational Therapy to address deficits in ADL independence and functional mobility due to a status decline resulting from hospitalization due to sepsis. 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 Concern for infection s/p recent R BKA. Wound cultures growing proteus mirabilis. Transfer [facility] for vascular consult Vascular - no sx intervention, continue abx per ID Wound care on board - also following L ankle wound (MRI neg for osteomyelitis) Dx: sepsis, L medial/ankle wounds Pt seen this date for Occupational Therapy evaluation; additional information re: pt past medical history and current occupational profile can be found within report below. Past Medical History: Diagnosis Date Anemia Chronic hypercapnic respiratory failure ([facility]) COPD (chronic obstructive pulmonary disease) ([facility] Depression Disease of lung HTN (hypertension) Obesity EMMA (obstructive sleep apnea) Paraplegia ([facility]) Past Surgical History: Procedure Laterality Date AMPUTATION BELOW KNEE Right 01/24/2025 Performed by Abraham Pimentel MD at [facility] ESOPHAGOGASTRODUODENOSCOPY PILONIDAL CYST / SINUS EXCISION VEIN SURGERY Left 07/15/2019 LT [facility] EVLT / PHLEBS OT Treatment/Interventions: ADL retraining, Functional transfer training, UE strengthening/ROM, Endurance training, Patient/family training, Balance, Equipment eval/education, Bed mobility, Compensatory technique education, Functional activities OT Frequency: 4-5days/week OT Duration: LOS Assessment Patient Assessment Therapy Problem List: Decreased ADL status, Decreased balance, Decreased endurance, Decreased high-level ADLs, Decreased mobility, Decreased self-care trans, Decreased UE strength Patient Response to Treatment: Tolerated evaluation without adverse reaction Mood/Affect: Appropriate for circumstances Rehab Prognosis: Good, With continued OT status post acute discharge Visit RN Communication: Yes Medical Record Reviewed: Yes OT Type of Visit: Evaluation Reason For Medical Deferral: Off unit Off Unit: Testing Precautions Activity: early mobility - pass; okay to see per RN Equipment: repositioning sling, huber, colostomy, O2 Telemetry/Roll Icer: Yes Oxygen Used: 3L via NC Other: High fall risk, h/o paraplegia, 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, 4L O2 baseline, BLE external rotation / adduction at hips, knee contractures Pain Assessment Pain Assessment: No/denies pain Home Living Type of Home: House (pt has been at [facility] since R BKA prior to that living at home with that information listed here) Home Layout: One level, Ramped entrance Stairs to Enter: ramp Stairs in Home: 0 Bathroom Shower/Tub: (sponge bathes baseline at home) Bathroom Toilet: (n/a colostomy and huber; pt was straight cathing at home) Home Equipment: Rolling walker, Wheelchair-manual, Wheelchair-electric, Home oxygen, Hospital bed (4L O2 baseline, pt reports I wouldn't wear it outside because the hose wasn't long enough. ) Prior Function Lives With: Other (Comment) (Pt currently from SNF since [facility] in Dec 2024, prior to that home with spouse has Parkinson's pt reports less able to help him in recent months) Receives Help From: communications attendant, Friend(s) (Currently assist from SNF; prior to SNF at home pt had personal investment adviser coming every two weeks, pt reports limited support from family, has friends I could ask if I needed to. ) Level of Mobility: Needs assistance with ADLs or functional transfers or gait (Since BKA @ facility dependent on iris lift to wheelchair, sponge bathing with assist.) Other: At baseline pt using slide board to transfer to electric wheelchair. VASCULAR NURSE assisted with lower body bathing every two weeks. Pt doing own grooming and upper body bathing, managing own colostomy and straight cath. Appears pt could have been using more support at home in spouse's declining health, he states, I know I need to have them come in at least every week. Homemaking Assistance: Needs assistance (Facility staff completing) Vocational: Retired ([employer]) Leisure: (enjoys watching Hockey) ADL / IADL Hand Dominance: Right Where Assessed: Edge of bed Eating Assistance: Independent Grooming Assistance: Standby assist (seated) Bathing/Showering Assistance: Max assist Toilet/Commode Assistance: Total assist (colostomy / huber) UE Dressing Assistance: Min assist (don hospital gown seated at EOB) UE Dressing Deficit: Pull around back LE Dressing Assistance: Total assist Footwear Assistance: Total assist Other: Pt is supine in bed upon arrival. While pt declines lift to recliner this date is agreeable to ADLS at EOB. Sits at EOB approx 10 minutes, washes face with set up support. Assistance for washing pt back and underarms, application of deodorant. Min assist to don hospital gown while seated EOB. Additional ADLs listed above that were not directly observed ti date are based on clinical judgment and assessment of pt person factors and performance skills. Home Management - IADL Other: Pt is supine in bed upon arrival. While pt declines lift to recliner this date is agreeable to ADLS at EOB. Sits at EOB approx 10 minutes, washes face with set up support. Assistance for washing pt back and underarms, application of deodorant. Min assist to don hospital gown while seated EOB. Additional ADLs listed above that were not directly observed ti date are based on clinical judgment and assessment of pt person factors and performance skills. Hearing / Speech / Vision Hearing: Within Functional Limits Speech: Within Functional Limits Current Vision: Wears glasses only for reading Cognition Overall Cognitive Status: Within Functional Limits Sensation Overall Sensation Status: Consistent with premorbid status (decreased sensation BLEs) Bed Mobility Supine to Sit: Mod assist, Right Sit to Supine: Mod assist Other: HOB elevated, increased time and effort. Pt requires assistance for LLE fully over EOB, moderate support for trunk upright and L hip fully to EOB. Initially requires support due to posterior lean, improves to close SBA to CGA. Back to bed pt requires assistance for LEs into bed and for repositioning up in head of bed. Left supine in bed with call light in hand, tray table in reach and all needs met. RN updated. Transfers Other: Not assessed this date, pt declines lift to recliner as he had just returned from CT testing. Gait Other: pt non-ambulatory at baseline Balance Sitting Balance: Static: Good Sitting Balance: Dynamic: Fair RUE Assessment: (AROM shoulders limited to approx 60 degrees, audible krepatis heard during all movement, generalized weakness throughout) LUE Assessment: (AROM shoulders limited to approx 80 degrees. Generalized weakness throughout.) Activity Tolerance Endurance: Tolerates <30 minutes activity WITHOUT vital sign changes Other: Pt pleasant and cooperative. On 3L throughout treatment. Fatigues quickly. REst breaks as needee. Plan Occupational Therapy Care Plan Occupational Therapy Care Plan (Active) Template: OT - Occupational Therapy Problem: Activity Tolerance Dates: Start: 02/16/25 Disciplines: OT Goal: Tolerate > 30 minutes of activity WITH rest breaks Dates: Start: 02/16/25 Expected End: 02/23/25 Description: Goal Description: Disciplines: OT Problem: Bathing UB Dates: Start: 02/16/25 Disciplines: OT Goal: Patient will perform bathing UB with Stand By Assist Dates: Start: 02/16/25 Expected End: 02/23/25 Description: Goal Description: Disciplines: OT Problem: Bed Mobility Dates: Start: 02/16/25 Disciplines: OT Goal: Patient will perform bed mobility with Minimum Assist Dates: Start: 02/16/25 Expected End: 02/23/25 Description: Goal Description: Disciplines: OT Problem: Dressing UB Dates: Start: 02/16/25 Disciplines: OT Goal: Patient will perform dressing UB with Minimum Assist Dates: Start: 02/16/25 Expected End: 02/23/25 Description: Goal Description: Disciplines: OT Problem: Grooming Dates: Start: 02/16/25 Disciplines: OT Goal: Patient will perform grooming with Set-Up Dates: Start: 02/16/25 Expected End: 02/23/25 Description: Goal Description: Disciplines: OT Problem: Sitting Balance Dates: Start: 02/16/25 Disciplines: OT Goal: Improve balance to good Dates: Start: 02/16/25 Expected End: 02/23/25 Description: Static Dynamic Disciplines: OT Problem: Strength Dates: Start: 02/16/25 Disciplines: OT Goal: Improve strength Dates: Start: 02/16/25 Expected End: 02/23/25 Description: Of extremity/ location: BUEs To facilitate: improved activity tolerance, endurance, and safety and independence with ADLs and functional transfers Disciplines: OT Problem: Transfers Dates: Start: 02/16/25 Disciplines: OT Goal: Other transfer goal (Customize) Dates: Start: 02/16/25 Expected End: 02/23/25 Description: Goal Description: Disciplines: OT Occupational Therapy Care Plan (Resolved) There are no resolved problems. 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) Venous stasis ulcer of left lower extremity (CMS-HCC) 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 ([facility]-HCC) Surgical wound present Photos to Photos Formerly [facility] 02-16-2025 Consult note Associated Order (s): IP CONSULT TO NUTRITION SERVICES NUTRITION ADULT INITIAL EVALUATION NUTRITION ASSESSMENT: Reason to be seen: Consult for assessment Patient History: Admit Diagnosis: Patient Active Problem List Diagnosis Neuromuscular weakness (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 Obesity hypoventilation syndrome (CMS-HCC) Essential hypertension EMMA treated with BiPAP Chronic respiratory failure with hypoxia and hypercapnia ([facility]-HCC) Iron deficiency Venous stasis ulcer of left lower leg with edema of left lower leg (CMS-HCC) Paraplegia (CMS-HCC) Cellulitis of right lower extremity Venous ulcer-leg syndrome, bilateral (CMS-HCC) Critical 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 (CMS-HCC) Gangrene of right foot (CMS-HCC) Unable to ambulate 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) Sepsis with acute renal failure (CMS-HCC) 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 species Sepsis (CMS-HCC) 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) Surgical wound present Past Medical History: Past Medical History: Diagnosis Date Anemia Chronic hypercapnic respiratory failure ([facility]) COPD (chronic obstructive pulmonary disease) ([facility]) Depression Disease of lung HTN (hypertension) Obesity EMMA (obstructive sleep apnea) Paraplegia (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 Performed by Abraham Pimentel MD at [facility] COLOSTOMY ESOPHAGOGASTRODUODENOSCOPY PILONIDAL CYST / SINUS EXCISION VEIN SURGERY Left 07/15/2019 LT [facility] EVLT / PHLEBS Social/ Cognitive/ Economic: Residing at correction facility for rehab. Brief Clinical Summary: 79 yo male presented to OSH for a wound check. Pt transferred to [facility]TH for sepsis with KACEY. PMH: Right BKA on 01/24/25, COPD, HTN, EMMA, paraplegia, obesity, depression, anemia. *Followed by wound care. Biochemical Data, Medical Tests, and Procedures: Reviewed. Labs: Results from last 3 days Lab Units 02/16/257 02/15/25 0723 02/14/25 0543 SODIUM mmol/L 141 140 138 POTASSIUM mmol/L 3.6 3.9 3.6 CHLORIDE mmol/L 105 106 106 CO2 mmol/L 28 27 25 BUN mg/dL 10 18 46* CREATININE mg/dL 0.45* 0.46* 1.62* CALCIUM mg/dL 8.4* 8.4* 8.4* ALBUMIN g/dL 2.7* 2.7* 2.2* ALK PHOS U/L 57 61 67 ALT U/L 16 21 37 AST U/L 16 17 24 Results from last 7 days Lab Units 02/16/25 0447 02/15/25 0723 02/14/25 0543 02/13/25 0453 02/11/25 1940 GLUCOSE mg/dL 96 93 154* 144* 154* Results from last 3 days Lab Units 02/16/25 0447 02/15/25 0723 02/14/25 0543 WBC X10E9/L 6.3 6.3 10.8 HEMOGLOBIN g/dL 8.4* 8.4* 8.9* HEMATOCRIT % 25.3* 25.6* 26.7* PLATELETS X10E9/L 92* 81* 85* MCV fL 89 90 90 Results from last 3 days Lab Units 02/16/25 0447 02/15/25 1526 02/15/25 0723 MAGNESIUM mg/dL 2.0 2.5 1.8 No data from last 3 days. Results from last 3 days Lab Units 02/16/25 0447 02/15/25 0723 02/14/25 0543 TOTAL BILIRUBIN mg/dL 0.3 0.3 0.4 No results found for: HGBA1C Lab Results Component Value Date IRON 25 (L) 02/15/2025 TIBC 200 (L) 02/15/2025 FERRITIN 136 02/15/2025 Lab Results Component Value Date IRONSAT 12 (L) 02/15/2025 No results found for: CHOL No results found for: CHDL No results found for: HDL No results found for: LDLCALC No results found for: TRIG No results found for: VERYLOWLIP Lab Results Component Value Date [id number] 1,318 (H) 02/15/2025 Lab Results Component Value Date FOLATE >25.0 02/15/2025 Lab Results Component Value Date VITD25 27.3 (L) 01/31/2025 Comments (labs): Decreased Creatinine Medications/ Parenteral: Fe sulfate, Venofer, Mg Sulfate (02/15), Kcl Medications Prior to Admission Medication Sig Dispense Refill Last Dose/Taking acetaminophen (TYLENOL EXTRA STRENGTH) 500 mg tablet Take 2 tablets (1,000 mg total) by mouth every 6 (six) hours. (Patient taking differently: Take 2 tablets (1,000 mg total) by mouth in the morning and 2 tablets (1,000 mg total) at noon and 2 tablets (1,000 mg total) in the evening and 2 tablets (1,000 mg total) before bedtime.) 30 tablet 0 Taking Differently ascorbic acid (VITAMIN C) 500 mg tablet Take 1 tablet (500 mg total) by mouth in the morning. Taking aspirin 81 mg chewable tablet Chew 1 tablet (81 mg total) and swallow in the morning. Taking atorvastatin (LIPITOR) 20 mg tablet Take 1 tablet (20 mg total) by mouth in the morning and 1 tablet (20 mg total) before bedtime. Taking carvedilol (COREG) 6.25 mg tablet Take 1 tablet (6.25 mg total) by mouth in the morning and 1 tablet (6.25 mg total) before bedtime. Taking cholecalciferol (VITAMIN D3) 50,000 units capsule Take 1 capsule (50,000 Units total) by mouth once a week. (Patient taking differently: Take 1 capsule (50,000 Units total) by mouth once a week. Thursday) 4 capsule 11 Taking Differently citalopram (CeleXA) 40 mg tablet Take 1 tablet (40 mg total) by mouth in the morning. Taking ferrous sulfate 325 (65 FE) MG tablet Take 1 tablet (325 mg total) by mouth daily with breakfast. Taking furosemide (LASIX) 20 mg tablet Take 1 tablet (20 mg total) by mouth 2 (two) times a day. Taking potassium chloride (K-TAB,KLOR-CON) 10 MEQ CR tablet Take 2 tablets (20 mEq total) by mouth nightly. Taking potassium chloride (KLOR-CON) 20 mEq packet Take 1 packet (20 mEq total) by mouth in the morning. Taking tamsulosin (FLOMAX) 0.4 mg capsule Take 1 capsule (0.4 mg total) by mouth nightly. Taking zinc sulfate (ZINCATE) 50 mg zinc (220 mg) capsule Take 1 capsule (220 mg total) by mouth in the morning. Taking oxygen Inhale 3-4 L/min as needed. Current Facility-Administered Medications Medication Dose Route Frequency Provider Last Rate Last Admin acetaminophen (TYLENOL) suppository 650 mg 650 mg rectal Q4H PRN Almaz Mcpherson APRN-[employer] acetaminophen (TYLENOL) tablet 650 mg 650 mg oral Q4H PRN Jazmine Rowan APRN-[employer] 650 mg at 02/16/25 1245 albuterol (PROVENTIL,VENTOLIN) nebulizer solution 2.5 mg 2.5 mg nebulization Q6H PRN Almaz Mcpherson APRN-[employer] atorvastatin (LIPITOR) tablet 20 mg 20 mg oral Nightly Becca Ruiz Phlipot, MACHINE SHOP INSTRUCTOR-[employer] 20 mg at 02/15/25 2159 carvediloL (COREG) tablet 6.25 mg 6.25 mg oral BID Becca E Phlipot, MACHINE SHOP INSTRUCTOR-[employer] 6.25 mg at 02/16/25 0815 cefTRIAXone (ROCEPHIN) IVPB 2000 mg/50 mL in iso-osmotic dextrose (40 mg/mL premix) 2,000 mg intravenous Q24H Almaz Mcpherson MACHINE SHOP INSTRUCTOR-[employer] Stopped at 02/15/25 2233 citalopram (CeleXA) tablet 40 mg 40 mg oral Daily Almaz Mcpherson APRN-[employer] 40 mg at 02/16/25 0815 dextrose (GLUTOSE) 40 % gel 15 g 15 g oral PRN Almaz Mcpherson APRN-[employer] dextrose 5 % (D5W) infusion 100 mL/hr intravenous Continuous PRN Almaz Mcpherson APRN-[employer] dextrose 50 % in water (D50W) 50% solution 25 mL 25 mL intravenous PRN Almaz Mcpherson MACHINE SHOP INSTRUCTOR-[employer] enoxaparin (LOVENOX) syringe 40 mg 40 mg subcutaneous Daily Almaz Mcpherson APRN-ALYSSA ferrous sulfate tablet 325 mg 325 mg oral Daily with breakfast Almaz Mcpherson APRN-[employer]WORK[employer] 325 mg at 02/16/25 0815 glucagon HCL injection 1 mg 1 mg intramuscular PRN Almaz Mcpherson APRN-[employer] iron sucrose (VENOFER) 100 mg in sodium chloride 0.9 % 50 mL IVPB 100 mg intravenous Daily Becca E PhlISAMAR robleroN-[employer]WORK[employer] 220 mL/hr at 02/16/25 1250 100 mg at 02/16/25 1250 magnesium sulfate IVPB 2000 mg/50 mL in iso-osmotic water (40 mg/mL premix) 2,000 mg intravenous PRN Almaz Mcpherson MACHINE SHOP INSTRUCTOR-[employer] Stopped at 02/15/25 1202 magnesium sulfate IVPB 4000 mg/100 mL in iso-osmotic water (40 mg/mL premix) 4,000 mg intravenous PRN Almaz Mcpherson MACHINE SHOP INSTRUCTOR-[employer] ondansetron (PF) (ZOFRAN) injection 4 mg 4 mg intravenous Q8H PRN Almaz Mcpherson MACHINE SHOP INSTRUCTOR-[employer] potassium chloride (K-TAB,KLOR-CON) CR tablet 30-40 mEq 30-40 mEq oral PRN Almaz Mcpherson, MACHINE SHOP INSTRUCTOR-[employer] 30 mEq at 02/16/25 1245 Or potassium chloride (KAYCIEL) 20 mEq/15 mL solution 30-40 mEq 30-40 mEq oral PRN Almaz [place], MACHINE SHOP INSTRUCTOR-[employer] Or potassium chloride IVPB 10 mEq/100 mL in water (0.1 mEq/mL premix) 10 mEq intravenous PRN Almaz Mcpherson, MACHINE SHOP INSTRUCTOR-[employer] sennosides-docusate sodium (SENOKOT-S) 8.6-50 mg 1 tablet 1 tablet oral Q12H PRN Almaz Mcpherson, MACHINE SHOP INSTRUCTOR-[employer] sodium chloride 0.9 % flush 10 mL 10 mL intravenous PRN Kena Lee MD 10 mL at 02/16/25 1124 sodium chloride 0.9 % flush 3 mL 3 mL intravenous PRN Almaz [place], MACHINE SHOP INSTRUCTOR-[employer] sodium chloride 0.9 % flush 3 mL 3 mL intravenous Q12H DOROTHY Almazesequiel Mcpherson, MACHINE SHOP INSTRUCTOR-[employer] 3 mL at 02/16/25 0815 sodium chloride 0.9 % flush bag 25 mL intravenous PRN Almaz [place], MACHINE SHOP INSTRUCTOR-[employer] sodium chloride 0.9 % infusion 20 mL/hr intravenous Continuous PRN Almaz [place]ida, MACHINE SHOP INSTRUCTOR[employer] tamsulosin (FLOMAX) 24 hr capsule 0.4 mg 0.4 mg oral Nightly Almaz Mcpherson, MACHINE SHOP INSTRUCTOR[employer] 0.4 mg at 02/15/25 2009 Nutrition Focused Physical Findings +colostomy (OP: 250 ml), +multiple wounds (see below), UO: 4000 ml, +edema. Extremities, Muscles, and Bones A. Muscle Loss- appears WNL B. Loss of Subcutaneous Fat- - appears WNL Skin (per nursing flow sheets): Skin Color: [place] (02/16/25 0700) Skin Temp: Dry; Warm (02/16/25 0700) Wound (per nursing flow sheets): Wound 01/31/25 Pressure Injury Foot Left;Lateral-Site Assessment: Black; Yellow; Red (02/16/25 1240) Wound 01/31/25 Pressure Injury Foot Left;Medial-Site Assessment: Black; Red; Yellow (02/16/25 1240) Wound 01/30/25 Pressure Injury Back Left Lateral;Lower-Site Assessment: Excoriated; [place] (02/16/25 1240) Wound 02/12/25 1 Incision Leg Lower;Amputation Site;Right-Site Assessment: Clean; Dry; Excoriated; [place] (some scabbing) (02/16/25 1240) Gastrointestinal (per nursing flow sheets): Abdomen Assessment: Soft; Rounded; Ostomy Drain; Stoma (02/16/25 0700) Last BM Date: 02/16/25 (02/16/25 07) Passing Flatus: Yes (02/16/25 07) RUQ Bowel Sounds: Active (02/16/25 07) LUQ Bowel Sounds: Active (02/16/25 07) RLQ Bowel Sounds: Active (02/16/25 07) LLQ Bowel Sounds: Active (02/16/25 07) GI Symptoms: None (02/16/25 07) Edema (per nursing flow sheets): RLE Edema: +1 (BKA) (02/15/25 0734) LLE Edema: +1 (02/16/25 07) Intake/ Output Last 24 hrs: Intake/Output Summary (Last 24 hours) at 02/16/2025 1307 Last data filed at 02/16/2025 0800 Gross per 24 hour Intake 120 ml Output 3250 ml Net -3130 ml Food/Nutrition Related History: Diet History: Regular diet, typically 2 meals daily and a Boost x1 per day at home. Nutrition Knowledge/Beliefs/Attitudes: -- Allergies: Allergies Allergen Reactions Adhesive Tape-Silicones Hives Diet/ Nutrition Order Review: Dietary Orders (From admission, onward) Start Ordered 02/14/25 173 Adult diet Regular Texture Diet effective now Question: Diet Type: Answer: Regular Texture 02/14/25 1732 02/14/25 1733 Adult nutrition supplements Continuous Question Answer Comment Diet Type or Consistency: Regular Texture Select Supplement: Wound Healing Supplement Frequency: BID 02/14/25 1732 Diet Intakes: Percent Meals Eaten (%): 100 (02/16/25 0800) 50-100% per nursing flowsheets. Oral Supplemental Intake/ Acceptance: Ethan ordered BID by MD- discontinued due to +Sepsis. Anthropometrics: Ht Readings from Last 1 Encounters: 02/15/25 182.9 cm (6') Wt Readings from Last 20 Encounters: 02/16/25 99.7 kg (219 lb 12.8 oz) 02/14/25 98.9 kg (218 lb 0.6 oz) 02/01/25 95.8 kg (211 lb 3.2 oz) 01/26/25 99.7 kg (219 lb 12.8 oz) 01/19/25 113.4 kg (250 lb) 11/03/24 113.4 kg (250 lb) 04/07/24 113.4 kg (250 lb) 03/24/24 104.3 kg (230 lb) 02/29/24 104.4 kg (230 lb 3.2 oz) 07/17/22 104.3 kg (230 lb) 06/20/21 112 kg (247 lb) 05/29/21 113.4 kg (250 lb) 12/05/20 110.8 kg (244 lb 4.3 oz) 01/25/20 113.4 kg (250 lb) 10/20/19 110.7 kg (244 lb) 07/15/19 116.6 kg (257 lb) 02/11/18 116.6 kg (257 lb) 11/03/16 110.7 kg (244 lb) Last 3 Weight Readings 02/15/25 0414 02/16/25 0311 Weight: 104.7 kg (230 lb 13.2 oz) 99.7 kg (219 lb 12.8 oz) Admit Weight: 104.7 kg (Bed Scale, 02/15) Usual Body Weight: see above [place] Body Weight: 70.9 kg (adj for paraplegia) Percent [place] Body Weight: 140% Weight Changes: ~30 lbs weight loss per pt. Some loss anticipated r/t BKA. Body Mass Index: Body mass index is 29.81 kg/m . BMI Category: Overweight (> or = 25.00) Comparative Standards: Estimated Energy Needs: 7247-2903 kcals daily. Method and weight used: 30-35 kcal/kg IBW (adj for paraplegia) Estimated Protein Needs: 106-142 grams daily. Method and weight used: 1.5-2 g protein/kg IBW (adj for paraplegia) Estimated Fluid Needs: 0004-7389 ml daily. Method weight used: 30-35 ml/kg IBW (adj for paraplegia) Comments: wound needs. Malnutrition Status: Malnutrition Present: No, at risk NUTRITION DIAGNOSIS: Intake Diagnosis: Increased nutrient needs protein/kcal (NI 5.1) related to wound as evidenced by increased needs for healing. NUTRITION INTERVENTIONS: Meals & snacks: Diet per team, encourage intake. Supplements (medical food, vitamin or mineral): Ordered ensure plus high protein TID to provide 350 kcal and 20 grams of protein per serving. RECOMMENDATIONS: Please record % meal, snack, and supplement intakes in flowsheet for ongoing assessment. GOAL(S): Meet estimated calorie and protein needs. NUTRITION MONITORING AND EVALUATION: PO intakes, weight trend, labs, POC and overall status. Pilar Gómez RD, LD Clinical Dietitian Direct Line: Photos to Photos [facility] 02-16-2025 Consult note Associated Order (s): IP CONSULT TO NUTRITION SERVICES NUTRITION ADULT INITIAL EVALUATION NUTRITION ASSESSMENT: Reason to be seen: Consult for assessment Patient History: Admit Diagnosis: Patient Active Problem List Diagnosis Neuromuscular weakness (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 Obesity hypoventilation syndrome ([facility]) Essential hypertension EMMA treated with BiPAP Chronic respiratory failure with hypoxia and hypercapnia ([facility]) Iron deficiency Venous stasis ulcer of left lower leg with edema of left lower leg ([facility]) Paraplegia ([facility]) Cellulitis of right lower extremity Venous ulcer-leg syndrome, bilateral (CMS-HCC) Critical 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 (CMS-HCC) Gangrene of right foot (CMS-HCC) Unable to ambulate 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) Sepsis with acute renal failure (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) Surgical wound present Past Medical History: Past Medical History: Diagnosis Date Anemia Chronic hypercapnic respiratory failure (CMS-HCC) COPD (chronic obstructive pulmonary disease) ([facility]) Depression Disease of lung HTN (hypertension) Obesity EMMA (obstructive sleep apnea) Paraplegia (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 Performed by Abraham Pimentel MD at [facility] COLOSTOMY ESOPHAGOGASTRODUODENOSCOPY PILONIDAL CYST / SINUS EXCISION VEIN SURGERY Left 07/15/2019 LT [facility]SV EVLT / PHLEBS Social/ Cognitive/ Economic: Residing at correction facility for rehab. Brief Clinical Summary: 79 yo male presented to OSH for a wound check. Pt transferred to [facility] for sepsis with KACEY. PMH: Right BKA on 01/24/25, COPD, HTN, EMMA, paraplegia, obesity, depression, anemia. *Followed by wound care. Biochemical Data, Medical Tests, and Procedures: Reviewed. Labs: Results from last 3 days Lab Units 02/16/257 02/15/25 0723 02/14/25 0543 SODIUM mmol/L 141 140 138 POTASSIUM mmol/L 3.6 3.9 3.6 CHLORIDE mmol/L 105 106 106 CO2 mmol/L 28 27 25 BUN mg/dL 10 18 46* CREATININE mg/dL 0.45* 0.46* 1.62* CALCIUM mg/dL 8.4* 8.4* 8.4* ALBUMIN g/dL 2.7* 2.7* 2.2* ALK PHOS U/L 57 61 67 ALT U/L 16 21 37 AST U/L 16 17 24 Results from last 7 days Lab Units 02/16/25 0447 02/15/25 0723 02/14/25 0543 02/13/25 0453 02/11/25 1940 GLUCOSE mg/dL 96 93 154* 144* 154* Results from last 3 days Lab Units 02/16/25 0447 02/15/25 0723 02/14/25 0543 WBC X10E9/L 6.3 6.3 10.8 HEMOGLOBIN g/dL 8.4* 8.4* 8.9* HEMATOCRIT % 25.3* 25.6* 26.7* PLATELETS X10E9/L 92* 81* 85* MCV fL 89 90 90 Results from last 3 days Lab Units 02/16/25 0447 02/15/25 1526 02/15/25 0723 MAGNESIUM mg/dL 2.0 2.5 1.8 No data from last 3 days. Results from last 3 days Lab Units 02/16/25 0447 02/15/25 0723 02/14/25 0543 TOTAL BILIRUBIN mg/dL 0.3 0.3 0.4 No results found for: HGBA1C Lab Results Component Value Date IRON 25 (L) 02/15/2025 TIBC 200 (L) 02/15/2025 FERRITIN 136 02/15/2025 Lab Results Component Value Date IRONSAT 12 (L) 02/15/2025 No results found for: CHOL No results found for: CHDL No results found for: HDL No results found for: LDLCALC No results found for: TRIG No results found for: VERYLOWLIP Lab Results Component Value Date [id number] 1,318 (H) 02/15/2025 Lab Results Component Value Date FOLATE >25.0 02/15/2025 Lab Results Component Value Date VITD25 27.3 (L) 01/31/2025 Comments (labs): Decreased Creatinine Medications/ Parenteral: Fe sulfate, Venofer, Mg Sulfate (02/15), Kcl Medications Prior to Admission Medication Sig Dispense Refill Last Dose/Taking acetaminophen (TYLENOL EXTRA STRENGTH) 500 mg tablet Take 2 tablets (1,000 mg total) by mouth every 6 (six) hours. (Patient taking differently: Take 2 tablets (1,000 mg total) by mouth in the morning and 2 tablets (1,000 mg total) at noon and 2 tablets (1,000 mg total) in the evening and 2 tablets (1,000 mg total) before bedtime.) 30 tablet 0 Taking Differently ascorbic acid (VITAMIN C) 500 mg tablet Take 1 tablet (500 mg total) by mouth in the morning. Taking aspirin 81 mg chewable tablet Chew 1 tablet (81 mg total) and swallow in the morning. Taking atorvastatin (LIPITOR) 20 mg tablet Take 1 tablet (20 mg total) by mouth in the morning and 1 tablet (20 mg total) before bedtime. Taking carvedilol (COREG) 6.25 mg tablet Take 1 tablet (6.25 mg total) by mouth in the morning and 1 tablet (6.25 mg total) before bedtime. Taking cholecalciferol (VITAMIN D3) 50,000 units capsule Take 1 capsule (50,000 Units total) by mouth once a week. (Patient taking differently: Take 1 capsule (50,000 Units total) by mouth once a week. Thursday) 4 capsule 11 Taking Differently citalopram (CeleXA) 40 mg tablet Take 1 tablet (40 mg total) by mouth in the morning. Taking ferrous sulfate 325 (65 FE) MG tablet Take 1 tablet (325 mg total) by mouth daily with breakfast. Taking furosemide (LASIX) 20 mg tablet Take 1 tablet (20 mg total) by mouth 2 (two) times a day. Taking potassium chloride (K-TAB,KLOR-CON) 10 MEQ CR tablet Take 2 tablets (20 mEq total) by mouth nightly. Taking potassium chloride (KLOR-CON) 20 mEq packet Take 1 packet (20 mEq total) by mouth in the morning. Taking tamsulosin (FLOMAX) 0.4 mg capsule Take 1 capsule (0.4 mg total) by mouth nightly. Taking zinc sulfate (ZINCATE) 50 mg zinc (220 mg) capsule Take 1 capsule (220 mg total) by mouth in the morning. Taking oxygen Inhale 3-4 L/min as needed. Current Facility-Administered Medications Medication Dose Route Frequency Provider Last Rate Last Admin acetaminophen (TYLENOL) suppository 650 mg 650 mg rectal Q4H PRN VERONIKA Pulido acetaminophen (TYLENOL) tablet 650 mg 650 mg oral Q4H PRN VERONIKA Bhakta 650 mg at 02/16/25 1245 albuterol (PROVENTIL,VENTOLIN) nebulizer solution 2.5 mg 2.5 mg nebulization Q6H PRN VERONIKA Pulido atorvastatin (LIPITOR) tablet 20 mg 20 mg oral Nightly Becca Newellipot, MACHINE [employer]OP INSTRUCTOR-[employer]ARM[employer] 20 mg at 02/15/25 2159 carvediloL (COREG) tablet 6.25 mg 6.25 mg oral BID Becca Newellipot, FERNANDO-FARMWORKER FRUIT 6.25 mg at 02/16/25 0815 cefTRIAXone (ROCEPHIN) IVPB 2000 mg/50 mL in iso-osmotic dextrose (40 mg/mL premix) 2,000 mg intravenous Q24H VERONIKA Pulido Stopped at 02/15/25 2233 citalopram (CeleXA) tablet 40 mg 40 mg oral Daily RAFITA PulidoFARMWORKER FRUIT 40 mg at 02/16/25 0815 dextrose (GLUTOSE) 40 % gel 15 g 15 g oral PRN VERONIKA Pulido dextrose 5 % (D5W) infusion 100 mL/hr intravenous Continuous PRN VERONIKA Pulido dextrose 50 % in water (D50W) 50% solution 25 mL 25 mL intravenous PRN VERONIKA Pulido enoxaparin (LOVENOX) syringe 40 mg 40 mg subcutaneous Daily VERONIKA Pulido ferrous sulfate tablet 325 mg 325 mg oral Daily with breakfast Almaz Vida, MACHINE SHOP INSTRUCTOR-[employer]ARMWORKER [employer] 325 mg at 02/16/25 0815 glucagon HCL injection 1 mg 1 mg intramuscular PRN Almaz Mcpherson, MACHINE SHOP INSTRUCTOR-[employer]ARMWORK[employer] iron sucrose (VENOFER) 100 mg in sodium chloride 0.9 % 50 mL IVPB 100 mg intravenous Daily Becca Joseph Weinstein, MACHINE SHOP INSTRUCTOR-[employer]ARMWORK[employer] 220 mL/hr at 02/16/25 1250 100 mg at 02/16/25 1250 magnesium sulfate IVPB 2000 mg/50 mL in iso-osmotic water (40 mg/mL premix) 2,000 mg intravenous PRN Almaz Vida, MACHINE SHOP INSTRUCTOR-[employer]ARM[employer] Stopped at 02/15/25 1202 magnesium sulfate IVPB 4000 mg/100 mL in iso-osmotic water (40 mg/mL premix) 4,000 mg intravenous PRN Almaz Vida, MACHINE SHOP INSTRUCTOR-FARMWORKER [employer]UIT ondansetron (PF) (ZOFRAN) injection 4 mg 4 mg intravenous Q8H PRN Almaz Vida, MACHINE SHOP INSTRUCTOR-FARMWORKER [employer]UIT potassium chloride (K-TAB,KLOR-CON) CR tablet 30-40 mEq 30-40 mEq oral PRN Almaz Mcpherson, MACHINE SHOP INSTRUCTOR-[employer]ARMWORKER [employer] 30 mEq at 02/16/25 1245 Or potassium chloride (KAYCIEL) 20 mEq/15 mL solution 30-40 mEq 30-40 mEq oral PRN Almaz Vida, MACHINE SHOP INSTRUCTOR-FARMWORKER [employer]UIT Or potassium chloride IVPB 10 mEq/100 mL in water (0.1 mEq/mL premix) 10 mEq intravenous PRN Almaz Mcpherson, MACHINE SHOP INSTRUCTOR-FARMWORKER [employer]UIT sennosides-docusate sodium (SENOKOT-S) 8.6-50 mg 1 tablet 1 tablet oral Q12H PRN Almaz Mcpherson, MACHINE SHOP INSTRUCTOR-[employer]ARMWORKER [employer] sodium chloride 0.9 % flush 10 mL 10 mL intravenous PRN Kena Lee MD 10 mL at 02/16/25 1124 sodium chloride 0.9 % flush 3 mL 3 mL intravenous PRN Almaz [place], MACHINE SHOP INSTRUCTOR-[employer]ARMWORKER [employer] sodium chloride 0.9 % flush 3 mL 3 mL intravenous Q12H DOROTHY Almaz Mcpherson, MACHINE SHOP INSTRUCTOR-FARMWORKER [employer]UIT 3 mL at 02/16/25 0815 sodium chloride 0.9 % flush bag 25 mL intravenous PRN Almaz Vida, MACHINE SHOP INSTRUCTOR-[employer]ARMWORKER [employer] sodium chloride 0.9 % infusion 20 mL/hr intravenous Continuous PRN Almazesequiel Mcpherson, MACHINE SHOP INSTRUCTOR-FARMWORKER [employer] tamsulosin (FLOMAX) 24 hr capsule 0.4 mg 0.4 mg oral Nightly Almazesequiel Mcpherson APRN-FARMWORKER FRUIT 0.4 mg at 02/15/25 6275 Nutrition Focused Physical Findings +colostomy (OP: 250 ml), +multiple wounds (see below), UO: 4000 ml, +edema. Extremities, Muscles, and Bones A. Muscle Loss- appears WNL B. Loss of Subcutaneous Fat- - appears WNL Skin (per nursing flow sheets): Skin Color: [place] (02/16/25 07) Skin Temp: Dry; Warm (02/16/25 07) Wound (per nursing flow sheets): Wound 01/31/25 Pressure Injury Foot Left;Lateral-Site Assessment: Black; Yellow; Red (02/16/25 1240) Wound 01/31/25 Pressure Injury Foot Left;Medial-Site Assessment: Black; Red; Yellow (02/16/25 1240) Wound 01/30/25 Pressure Injury Back Left Lateral;Lower-Site Assessment: Excoriated; [place] (02/16/25 1240) Wound 02/12/25 1 Incision Leg Lower;Amputation Site;Right-Site Assessment: Clean; Dry; Excoriated; [place] (some scabbing) (02/16/25 1240) Gastrointestinal (per nursing flow sheets): Abdomen Assessment: Soft; Rounded; Ostomy Drain; Stoma (02/16/25 07) Last BM Date: 02/16/25 (02/16/25 07) Passing Flatus: Yes (02/16/25 07) RUQ Bowel Sounds: Active (02/16/25 07) LUQ Bowel Sounds: Active (02/16/25699) RLQ Bowel Sounds: Active (02/16/25699) LLQ Bowel Sounds: Active (02/16/25 07) GI Symptoms: None (02/16/25699) Edema (per nursing flow sheets): RLE Edema: +1 (BKA) (02/15/25 0734) LLE Edema: +1 (02/16/25 07) Intake/ Output Last 24 hrs: Intake/Output Summary (Last 24 hours) at 02/16/2025 1307 Last data filed at 02/16/2025 0800 Gross per 24 hour Intake 120 ml Output 3250 ml Net -3130 ml Food/Nutrition Related History: Diet History: Regular diet, typically 2 meals daily and a Boost x1 per day at home. Nutrition Knowledge/Beliefs/Attitudes: -- Allergies: Allergies Allergen Reactions Adhesive Tape-Silicones Hives Diet/ Nutrition Order Review: Dietary Orders (From admission, onward) Start Ordered 02/14/25 173 Adult diet Regular Texture Diet effective now Question: Diet Type: Answer: Regular Texture 02/14/25 1732 02/14/25 1733 Adult nutrition supplements Continuous Question Answer Comment Diet Type or Consistency: Regular Texture Select Supplement: Wound Healing Supplement Frequency: BID 02/14/25 173 Diet Intakes: Percent Meals Eaten (%): 100 (02/16/25 0800) 50-100% per nursing flowsheets. Oral Supplemental Intake/ Acceptance: Ethan ordered BID by MD- discontinued due to +Sepsis. Anthropometrics: Ht Readings from Last 1 Encounters: 02/15/25 182.9 cm (6') Wt Readings from Last 20 Encounters: 02/16/25 99.7 kg (219 lb 12.8 oz) 02/14/25 98.9 kg (218 lb 0.6 oz) 02/01/25 95.8 kg (211 lb 3.2 oz) 01/26/25 99.7 kg (219 lb 12.8 oz) 01/19/25 113.4 kg (250 lb) 11/03/24 113.4 kg (250 lb) 04/07/24 113.4 kg (250 lb) 03/24/24 104.3 kg (230 lb) 02/29/24 104.4 kg (230 lb 3.2 oz) 07/17/22 104.3 kg (230 lb) 06/20/21 112 kg (247 lb) 05/29/21 113.4 kg (250 lb) 12/05/20 110.8 kg (244 lb 4.3 oz) 01/25/20 113.4 kg (250 lb) 10/20/19 110.7 kg (244 lb) 07/15/19 116.6 kg (257 lb) 02/11/18 116.6 kg (257 lb) 11/03/16 110.7 kg (244 lb) Last 3 Weight Readings 02/15/25 0414 02/16/25 0311 Weight: 104.7 kg (230 lb 13.2 oz) 99.7 kg (219 lb 12.8 oz) Admit Weight: 104.7 kg (Bed Scale, 02/15) Usual Body Weight: see above [place] Body Weight: 70.9 kg (adj for paraplegia) Percent [place] Body Weight: 140% Weight Changes: ~30 lbs weight loss per pt. Some loss anticipated r/t BKA. Body Mass Index: Body mass index is 29.81 kg/m . BMI Category: Overweight (> or = 25.00) Comparative Standards: Estimated Energy Needs: 7290-9245 kcals daily. Method and weight used: 30-35 kcal/kg IBW (adj for paraplegia) Estimated Protein Needs: 106-142 grams daily. Method and weight used: 1.5-2 g protein/kg IBW (adj for paraplegia) Estimated Fluid Needs: 1811-0802 ml daily. Method weight used: 30-35 ml/kg IBW (adj for paraplegia) Comments: wound needs. Malnutrition Status: Malnutrition Present: No, at risk NUTRITION DIAGNOSIS: Intake Diagnosis: Increased nutrient needs protein/kcal (NI 5.1) related to wound as evidenced by increased needs for healing. NUTRITION INTERVENTIONS: Meals & snacks: Diet per team, encourage intake. Supplements (medical food, vitamin or mineral): Ordered ensure plus high protein TID to provide 350 kcal and 20 grams of protein per serving. RECOMMENDATIONS: Please record % meal, snack, and supplement intakes in flowsheet for ongoing assessment. GOAL(S): Meet estimated calorie and protein needs. NUTRITION MONITORING AND EVALUATION: PO intakes, weight trend, labs, POC and overall status. Pilar Gómez RD, LD Clinical Dietitian Direct Line: Associated Order(s): CONSULT WOUND CARE SERVICES Images from the original note were not included. Wound Care Service Line Consult Note Patient: Kj Lei Date of Admission: 02/14/2025 5:25 PM Request for Consult: BLE wounds PCP: Hudson Rios MD Admitted Chief Complaint: No chief complaint on file. Subjective/HPI: History of Present Illness: Kj Lei is a 79 y.o. male never smoker who initially [facility] 02[facility]25 from correction facility ([place], admitted for rehab s/p right BKA) with fever, chills and increased drainage from BKA incision. Patient has been being treated for proteus mirabilis bacteremia. Wound culture also grew proteus mirabilis. Patient was transferred to [facility] on 02/14/25. Past medical history includes but is not limited to right BKA (on 01/24/[address] Pimentel), COPD, HTN, EMMA, paraplegia, obesity, depression, anemia. Wound care is consulted for wounds of lower extremities that started prior to admission. Patient was seen by vascular surgery team on 02/15, no surgical intervention recommended, continue antibiotics per ID, continue local wound care. ID team is following. He was seen by wound care team in [place]. Current wound care regimen includes: Buttocks: Triad Left lower back: Foam dressing Left medial and lateral ankle: Medihoney, Adaptic, dry dressing Right BKA site: Medihoney to open areas, Xeroform to entire incision, cover with Kerlix, secure with Edward PMH: Past Medical History: Diagnosis Date Anemia Chronic hypercapnic respiratory failure ([facility]) COPD (chronic obstructive pulmonary disease) [place] Depression Disease of lung HTN (hypertension) Obesity EMMA (obstructive sleep apnea) Paraplegia ([facility]) PSH: Past Surgical History: Procedure Laterality Date AMPUTATION BELOW KNEE Right 01/24/2025 Performed by Abraham Pimentel MD at [facility] COLOSTOMY ESOPHAGOGASTRODUODENOSCOPY PILONIDAL CYST / SINUS EXCISION VEIN SURGERY Left 07/15/2019 LT SSV EVLT / PHLEBS Allergies: Allergies Allergen Reactions Adhesive Tape-Silicones Hives Home Meds: Medications Prior to Admission Medication Sig Dispense Refill Last Dose/Taking acetaminophen (TYLENOL EXTRA STRENGTH) 500 mg tablet Take 2 tablets (1,000 mg total) by mouth every 6 (six) hours. 30 tablet 0 ascorbic acid (VITAMIN C) 500 mg tablet Take 1 tablet (500 mg total) by mouth in the morning. aspirin 81 mg chewable tablet Chew 1 tablet (81 mg total) and swallow in the morning. atorvastatin (LIPITOR) 20 mg tablet Take 1 tablet (20 mg total) by mouth in the morning and 1 tablet (20 mg total) before bedtime. carvedilol (COREG) 6.25 mg tablet Take 1 tablet (6.25 mg total) by mouth in the morning and 1 tablet (6.25 mg total) before bedtime. CEPHalexin (KEFLEX) 500 mg capsule Take 1 capsule (500 mg total) by mouth in the morning and 1 capsule (500 mg total) before bedtime. cholecalciferol (VITAMIN D3) 50,000 units capsule Take 1 capsule (50,000 Units total) by mouth once a week. 4 capsule 11 citalopram (CeleXA) 40 mg tablet Take 1 tablet (40 mg total) by mouth in the morning. ferrous sulfate 325 (65 FE) MG tablet Take 1 tablet (325 mg total) by mouth daily with breakfast. furosemide (LASIX) 20 mg tablet Take 1 tablet (20 mg total) by mouth 2 (two) times a day. oxygen Inhale 3-4 L/min as needed. potassium chloride (K-TAB,KLOR-CON) 10 MEQ CR tablet Take 1 tablet (10 mEq total) by mouth daily with dinner. (Patient not taking: Reported on 02/12/2025) potassium chloride (KLOR-CON) 20 mEq packet Take 1 packet (20 mEq total) by mouth in the morning. tamsulosin (FLOMAX) 0.4 mg capsule Take 1 capsule (0.4 mg total) by mouth nightly. zinc sulfate (ZINCATE) 50 mg zinc (220 mg) capsule Take 1 capsule (220 mg total) by mouth in the morning. Social History: Social History Socioeconomic History Marital status: [...] Social Drivers of Health Financial Resource Strain: Low Risk (02/12/2025) Overall Financial Resource Strain (CARDIA) Difficulty of Paying Living Expenses: Not very hard Food Insecurity: No Food Insecurity (02/14/2025) Hunger Screening Food Insecurity - Worry: Never True Food Insecurity - Inability: Never True Transportation Needs: No Transportation Needs (02/14/2025) PRAPARE - Transportation Lack of Transportation (Medical): No Lack of Transportation (Non-Medical): No Physical Activity: Inactive (02/12/2025) Exercise Vital Sign Days of Exercise per Week: 0 days Minutes of Exercise per Session: 0 min Stress: Stress Concern Present (02/12/2025) [place] [employer] - Occupational Stress Questionnaire Feeling of Stress : To some extent Social Connections: Moderately Isolated (02/12/2025) Social Connection and Isolation Panel [NHANES] Frequency of Communication with Friends and Family: Three times a week Frequency of Social Gatherings with Friends and Family: Three times a week Attends Jain Services: Never Active Member of Clubs or Organizations: No Attends Club or Organization Meetings: Never Marital Status: Interpersonal Safety: Not At Risk (02/14/2025) Humiliation, Afraid, Rape, and Kick questionnaire Fear of Current or Ex-Partner: No Emotionally Abused: No Physically Abused: No Sexually Abused: No Housing Instability: Low Risk (02/14/2025) Housing Instability Housing Instability: No Family History: Family History Problem Relation Age of Onset Cancer Mother COPD Father I have personally reviewed past medical history including surgeries, social history, and family history. I have also reviewed allergies and home medications. They are documented in this note to their detail, and if there are none noted, they will further indicate no pertinent history. Review of Systems Review of Systems Constitutional: Negative for chills and fever. HENT: Negative for congestion. Respiratory: Negative for shortness of breath. Cardiovascular: Negative for chest pain. Gastrointestinal: Negative for abdominal pain. Musculoskeletal: Right BKA Skin: Positive for wound. Neurological: Positive for weakness (paraplegia) and numbness (below waist). Negative for dizziness and headaches. Objective: Physical Exam Vital Signs: BP 119/62 Pulse 97 Temp 36.9 C (98.4 F) (Oral) Resp 18 Ht 182.9 cm (6') Wt 104.7 kg (230 lb 13.2 oz) SpO2 95% BMI 31.31 kg/m Pain: Pain Assessment: No/denies pain Pain Score: 0 Pain Location: Leg Patient's Stated Acceptable Pain Level: No pain Physical Exam Vitals reviewed. Constitutional: General: He is not in acute distress. Appearance: He is not toxic-appearing or diaphoretic. HENT: Head: Normocephalic. Cardiovascular: Rate and Rhythm: Normal rate. Pulses: Dorsalis pedis pulses are 2+ on the left side. Pulmonary: Effort: Pulmonary effort is normal. No respiratory distress. Musculoskeletal: Left lower leg: Edema present. Comments: Patient with contractures, sits with bilateral hips in abducted position, knees in some flexion, right >left. Right BKA. 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 Skin: General: Skin is warm. Comments: See wound assessment. Neurological: General: No focal deficit present. Mental Status: He is alert and oriented to person, place, and time. Sensory: Sensory deficit (no sensation below waist area) present. Gait: Gait abnormal (paraplegia). Psychiatric: Behavior: Behavior normal. Wound Assessment: Right BKA stump Right lateral BKA stump Location: right BKA stump; present upon admission Type of Wound/Aetiology: surgical wounds Measurement: 0/7cm x 8cm x 0.3cm Undermining: none Tunneling: none Severity: fat-layer exposed Drainage/Exudate/Odor: moderate serous no odor Wound bed: slough Wound Edges: attached Periwound: intact Measurable Improvement: new wound encounter Wound Assessment: Left medial ankle 4.5cm x 1cm x 0.2cm blocked Left lateral ankle 5cm x 1.4cm x 0.2cm blocked Location: left medial and lateral ankle; present upon admission Type of Wound/Aetiology: chronic venous stasis ulcers Measurement: as above Undermining: none Tunneling: none Severity: fat-layer exposed Drainage/Exudate/Odor: moderate serous no odor Wound bed: slough Wound Edges: attached Periwound: edema and intact Measurable Improvement: new wound encounter Studies Reviewed: Labs Reviewed: Results from last 7 days Lab Units 02/15/25 0723 02/14/25 0543 02/13/25 0453 02/11/25 1940 WBC X10E9/L 6.3 10.8 14.2* 4.6 HEMOGLOBIN g/dL 8.4* 8.9* 9.1* 11.7* HEMATOCRIT % 25.6* 26.7* 27.6* 35.8* MCV fL 90 90 90 91 PLATELETS X10E9/L 81* 85* 102* 199 Results from last 7 days Lab Units 02/15/25 0723 02/14/25 0543 02/13/25 0453 02/11/25 194 POTASSIUM mmol/L 3.9 3.6 3.4* 4.1 CALCIUM mg/dL 8.4* 8.4* 8.0* 8.7 CO2 mmol/L 28 BUN mg/dL 18 46* 42* 28* CREATININE mg/dL 0.46* 1.62* 1.30* 1.44* GLUCOSE mg/dL 93 154* 144* 154* Results from last 7 days Lab Units 02/12/25 0745 INR 1.2 PROTIME sec 13.6* APTT sec 28 Results from last 7 days Lab Units 02/15/25 0723 02/14/25 0543 02/13/253 02/11/25 194 ALT U/L 21 37 49* 66* AST U/L 17 24 50* 77* ALK PHOS U/L 61 67 69 75 Pathology/Cytology Results No results found for the last 168 hours. Microbiology Results Procedure Component Value Units Date/Time Blood culture #2 [[id number]] Resulted: 02/15/25 1405 Specimen: Blood, Peripheral Draw Updated: 02/15/25 1405 Blood culture #1 [[id number]] Resulted: 02/15/25 1400 Specimen: Blood, Peripheral Draw Updated: 02/15/25 1400 Wound culture superficial includes gram stain [[id number]] (Abnormal) (Susceptibility) Collected: 02/12/25 1819 Specimen: Wound Swab Updated: 02/14/25 0759 Gram Stain Result 0 WHITE BLOOD CELLS/LPF 0 SQUAMOUS EPITHELIAL CELLS/LPF NO ORGANISMS SEEN Culture MODERATE PROTEUS MIRABILIS ALONG WITH RARE NORMAL SKIN ARY Susceptibility Proteus Mirabilis BRINA METHOD AMP/SULBACTAM <=2/1 Susceptible Ampicillin <=2 Susceptible Cefazolin (non-urinary) 4 Intermediate Cefazolin (urinary) 4 Susceptible Ceftriaxone <=0.25 Susceptible Ciprofloxacin <=0.06 Susceptible Gentamicin <=1 Susceptible Levofloxacin <=0.12 Susceptible PIPERACIL/TAZOBACTAM <=4 Susceptible Blood culture #2 [[id number]] Collected: 02/12/25 1017 Specimen: Blood Updated: 02/14/25 2122 Specimen Notes R HAND Culture NO GROWTH 2 DAYS Blood culture #1 [[id number]] Collected: 02/12/25 1011 Specimen: Blood Updated: 02/14/25 2123 Specimen Notes LFA Culture NO GROWTH 2 DAYS Urine culture [[id number]] (Abnormal) Collected: 02/12/25 0544 Specimen: Urine, Clean Catch Midstream Updated: 02/15/25 1333 Culture >100,000 ORGANISMS/mL PROTEUS MIRABILIS 50,000 to 100,000 ORGANISMS/mL MORGANELLA MORGANII <10,000 ORGANISMS/mL NORMAL URO GENITAL ARY SUSCEPTIBILITY TESTING IN PROGRESS Blood culture, peripheral #2 [[id number]] (Abnormal) Collected: 02/11/251944 Specimen: Blood Updated: 02/14/25 0717 Culture PROTEUS MIRABILIS FOR SUSCEPTIBILITY, SEE PREVIOUS REPORT. Blood culture, peripheral #1 [[id number]] (Abnormal) (Susceptibility) Collected: 02/11/251939 Specimen: Blood Updated: 02/14/25 0716 Culture PROTEUS MIRABILIS Proteus species detected by PCR. No resistance genes detected by PCR. Susceptibility Proteus Mirabilis BRINA METHOD AMP/SULBACTAM <=2/1 Susceptible Ampicillin <=2 Susceptible Cefazolin (non-urinary) 4 Intermediate Cefazolin (urinary) 4 Susceptible Ceftriaxone <=0.25 Susceptible Ciprofloxacin <=0.06 Susceptible Gentamicin <=1 Susceptible Levofloxacin <=0.12 Susceptible PIPERACIL/TAZOBACTAM <=4 Susceptible Imaging Reviewed: No results found. Vas art doppler lwr bilat mult lev/PVR 01/24/2025 Narrative Right: Essentially normal PVR waveform contour at [...] at the phone number beside their name. Assessment/Plan/Education: Principal Problem: [place] Active Problems: Essential hypertension EMMA treated with BiPAP Chronic respiratory failure with hypoxia and hypercapnia [place] Paraplegia ([facility]) Below-knee amputation of right lower extremity ([facility]) Sepsis with acute renal failure (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) Venous stasis ulcer of left lower extremity (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) Surgical wound present Dressing/Skin Care/Edema Management/Offloading: Left medial and lateral ankle wounds: Cleanse with soap and water, rinse, pat dry. Apply silver alginate to wound bed (cut to fit), cover with ABD pad, secure with Kerlix. Repeat daily and prn. Elevate left lower leg, float heel. Right BKA stump wound/inicison: Cleanse with soap and water, rinse, pat dry. Apply silver alginate (ribbon) to incision, cover with ABD pad, secure with Kerlix and Edward wrap. Repeat daily and prn. Offloading/Skin Care/Edema Management: - continue specialty bed CHAYO/pressure redistribution - isotour with CHAYO pump - turn and reposition minimally every 2 hours - pad and protect bony prominences - moisturize dry skin, do not massage vigorously - elevate left lower extremities and float heel - elevate upper extremities on pillows - left TruVue boot Antibiotics: per ID team Studies: reviewed as above Medical Management: per primary team Wound care will continue to follow while inpatient, orders written for bedside RN's to complete daily skin assessment and wound care orders daily and/or as written. May discharge from wound care perspective when medically stable as advised by other services. Follow up: In the outpatient wound care clinic at [place] within 1-2 weeks of discharge. Thank you for allowing us to participate in the care of this patient. Please feel free to call us with any questions or concerns. LASHANDA MULLEN PA-C [facility] Wound and Vascular Service Line [phone] - pager - Secure Chat preferred & fastest response time Needs outside these hours please contact the reciprocating department: general surgery, vascular surgery, ortho or podiatry. Thank you! Lashanda Mullen PA-C 02/15/25 4706 Associated Order(s): IP CONSULT TO INFECTIOUS DISEASES Images from the original note were not included. Infectious Diseases Academic Team - Initial Consult Note - Please contact us via [email or web address] chat. After hours, call [phone] Patient name: Kj Lei Patient Today's Date and Time: 02/15/2025, 9:00 AM Admission Date: 02/14/2025 Impression: Proteus mirabilis bacteremia from BCx x2 collected 02/11/25 Febrile, tachycardia, tachypnea have all resolved Given cefepime and vancomycin at [facility] Now on ceftriaxone 2 g Q24H Proteus mirabilis wound culture collected 02/12/25 with similar susceptibilities of BCx Huber catheter and colostomy bag in place Recommendations: Continue ceftriaxone 2 g Q24H for a minimum of 14 days as Proteus mirabilis susceptibilities have come back showing this is an appropriate treatment course. Consider CTAP as patient is paraplegic and may not sense dysuria Pending BCx x2 collected on 02/15 Continue monitoring fever curve. Subjective Reason for consultation / Chief complaint: Bacteremia, transferred from [place] History of Present Illness Kj Lei is a 79 y.o.-year-old male who was initially admitted on 02/14/2025 with a PMHx of HTN, HLD, chronic venous stasis, COPD on 4L NC at baseline, EMMA, and paraplegia who presents for fevers tachycardia and tachypnea. Patient received a BKA of the right limb due to critical limb ischemia with gangrene on 01/24/25 and was discharged back home only to be admitted again so that he may be sent to PT at a senior care. At senior care, patient developed fevers, tachycardia, tachypnea, and medical staff there were concern patient was having a wound infection in his right stump. Patient was then sent to [place] for evaluation, blood culture, urine culture, and wound culture there showed Proteus mirabilis growth. Patient was given cefepime and vancomycin (1 dosage), and was switched to ceftriaxone upon speciation and susceptibility finalization. During encounter, patient did not have any symptoms, and was not complaining of any fevers. Patient did seemed to be somewhat of a poor historian, however did reiterate the majority of his clinical course appropriately. Our consultation addresses :complex antimicrobial therapy counseling and treatment Thank you for consulting us, we will continue following. Past Medical History: Past Medical History: Diagnosis Date Anemia Chronic hypercapnic respiratory failure ([facility]) COPD (chronic obstructive pulmonary disease) ([facility]) Depression Disease of lung HTN (hypertension) Obesity EMMA (obstructive sleep apnea) Paraplegia (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 Performed by Abraham Pimentel MD at [facility] COLOSTOMY ESOPHAGOGASTRODUODENOSCOPY PILONIDAL CYST / SINUS EXCISION VEIN SURGERY Left 07/15/2019 LT [facility] EVLT / PHLEBS Medications: cefTRIAXone (ROCEPHIN) IV, 2,000 mg, intravenous, Q24H citalopram, 40 mg, oral, Daily enoxaparin (LOVENOX) injection, 40 mg, subcutaneous, Daily ferrous sulfate, 325 mg, oral, Daily with breakfast sodium chloride, 3 mL, intravenous, Q12H DOROTHY tamsulosin, 0.4 mg, oral, Nightly Social History: Social History Socioeconomic History Marital status: Tobacco Use Smoking status: Never Smokeless tobacco: Never Substance and Sexual Activity Alcohol use: Yes Alcohol/week: 0.0 standard drinks of alcohol Comment: occasionally Drug use: No Social Drivers of Health Financial Resource Strain: Low Risk (02/12/2025) Overall Financial Resource Strain (CARDIA) Difficulty of Paying Living Expenses: Not very hard Food Insecurity: No Food Insecurity (02/14/2025) Hunger Screening Food Insecurity - Worry: Never True Food Insecurity - Inability: Never True Transportation Needs: No Transportation Needs (02/14/2025) PRAPARE - Transportation Lack of Transportation (Medical): No Lack of Transportation (Non-Medical): No Physical Activity: Inactive (02/12/2025) Exercise Vital Sign Days of Exercise per Week: 0 days Minutes of Exercise per Session: 0 min Stress: Stress Concern Present (02/12/2025) [place] [place] [employer] - Occupational Stress Questionnaire Feeling of Stress : To some extent Social Connections: Moderately Isolated (02/12/2025) Social Connection and Isolation Panel [NHANES] Frequency of Communication with Friends and Family: Three times a week Frequency of Social Gatherings with Friends and Family: Three times a week Attends Jain Services: Never Active Member of Clubs or Organizations: No Attends Club or Organization Meetings: Never Marital Status: Interpersonal Safety: Not At Risk (02/14/2025) Humiliation, Afraid, Rape, and Kick questionnaire Fear of Current or Ex-Partner: No Emotionally Abused: No Physically Abused: No Sexually Abused: No Housing Instability: Low Risk (02/14/2025) Housing Instability Housing Instability: No Family History: Family History Problem Relation Age of Onset Cancer Mother COPD Father Immunization History: Immunization History Administered Date(s) Administered COVID-19 Vaccine, vector-nr, rS-Ad26, PF, 0.5mL 02/06/2021 COVID-19, mRNA, LNP-S, PF, 100mcg/0.5mL Dose 11/20/2021 Covid-19, Mrna, Lnp-s, Pf,ariana-sucrose,30 Mcg/0.3ml Fall23 08/29/2024 Influenza High Dose Preservative Free IM 09/06/2018, 09/26/2019, 11/21/2020, 08/29/2024 Influenza, High-dose, Quadrivalent 09/15/2016, 09/21/2017, 08/27/2021, 08/27/2022, 08/26/2023 Influenza, Injectable, Quadrivalent 11/22/2020 Pneumococcal Conjugate 13-Valent 09/10/2015 Pneumococcal Polysaccharide 11/30/2005, 05/01/2016 Tuberculin Skin Test; Unspecified Formulation 02/01/2025, 02/10/2025 Zoster Vaccine Recombinant 05/27/2023, 08/28/2023 Allergies: Allergies Allergen Reactions Adhesive Tape-Silicones Hives Review of Systems: General: No fevers or chills. Eyes: No double vision or blurry vision. ENT: No sore throat or runny nose. Cardiovascular: No chest pain or palpitations. Lung: No shortness of breath or cough. Abdomen: No nausea, vomiting, diarrhea, or abdominal pain. Genitourinary: No increased urinary frequency, or dysuria. Musculoskeletal: No muscle aches or pains. Hematologic: No bleeding or bruising. Neurologic: No headache, weakness, numbness, or tingling. Objective Physical Examination: BP 136/82 Pulse 95 Temp 36.9 C (98.4 F) (Oral) Resp 18 Wt 104.7 kg (230 lb 13.2 oz) SpO2 100% BMI 31.31 kg/m Temperature Range: Temp: 36.9 C (98.4 F) Temp Av.9 C (98.4 F) Min: 36.7 C (98.1 F) Max: 37.1 C (98.7 F) General Appearance: Awake, alert, and in no apparent distress Head: Normocephalic, without obvious abnormality, atraumatic Eyes: Pupils equal, round, reactive, to light and accommodation; extraocular movements intact; sclera anicteric; conjunctivae pink ENT: Oropharynx clear, without erythema, exudate, or thrush. Neck: Supple, without lymphadenopathy. Pulmonary/Chest: Clear to auscultation, without wheezes, rales, or rhonchi Cardiovascular: Regular rate and rhythm without murmurs, rubs, or gallops. Abdomen: Soft, nontender, nondistended. Extremities: No cyanosis, clubbing, edema, no joint effusions, right leg and stump wrapped, with no pain on palpation, and slight warmth but equivalent to the left side. Neurologic: Bulk and tone are normal. No atrophy is noted. Moves extremities. Sensation grossly intact Skin: No rash or lesions. Labs: Results from last 7 days Lab Units 02/15/25 0702/14/25 0543 02/13/25 0453 WBC X10E9/L 6.3 10.8 14.2* HEMOGLOBIN g/dL 8.4* 8.9* 9.1* HEMATOCRIT % 25.6* 26.7* 27.6* MCV fL 90 90 90 PLATELETS X10E9/L 81* 85* 102* NEUTROS ABS X10E9/L 4.7 9.3* 13.0* LYMPHS ABS AUTO X10E9/L 0.4* 0.4* 0.5* MONOS ABS AUTO X10E9/L 0.8 0.8 0.7 EOS ABS AUTO X10E9/L 0.4 0.2 0.1 BASOS ABS AUTO X10E9/L 0.1 0.1 0.0 Results from last 7 days Lab Units 02/15/25 0723 02/14/25 0543 02/13/25 0453 SODIUM mmol/L 140 138 137 POTASSIUM mmol/L 3.9 3.6 3.4* CHLORIDE mmol/L 106 106 105 CO2 mmol/L 27 25 26 BUN mg/dL 18 46* 42* CREATININE mg/dL 0.46* 1.62* 1.30* GLUCOSE mg/dL 93 154* 144* CALCIUM mg/dL 8.4* 8.4* 8.0* ALK PHOS U/L 61 67 69 ALT U/L 21 37 49* AST U/L 17 24 50* Results from last 7 days Lab Units 02/14/25 0543 PROCALCITONIN ng/mL 28.61* Results from last 7 days Lab Units 02/12/25 0502 SPECIFIC GRAVITY GIOVANI 1.010 LEUKOCYTE ESTERASE GIOVANI MODERATE* UROBILINOGEN GIOVANI eu/dL 0.2 Imaging Studies: MR ankle left without contrast Result Date: 02/13/2025 MR LEFT ANKLE CLINICAL INFORMATION: Osteomyelitis, [...] Noé Dewitt MD on 02/13/2025 1:05 PM I have personally reviewed these studies. Cultures: Microbiology Results Procedure Component Value Units Date/Time Wound culture superficial includes gram stain [[id number]] (Abnormal) (Susceptibility) Collected: 02/12/25 181 Specimen: Wound Swab Updated: 02/14/25 0759 Gram Stain Result 0 WHITE BLOOD CELLS/LPF 0 SQUAMOUS EPITHELIAL CELLS/LPF NO ORGANISMS SEEN Culture MODERATE PROTEUS MIRABILIS ALONG WITH RARE NORMAL SKIN ARY Susceptibility Proteus Mirabilis BRINA METHOD AMP/SULBACTAM <=2/1 Susceptible Ampicillin <=2 Susceptible Cefazolin (non-urinary) 4 Intermediate Cefazolin (urinary) 4 Susceptible Ceftriaxone <=0.25 Susceptible Ciprofloxacin <=0.06 Susceptible Gentamicin <=1 Susceptible Levofloxacin <=0.12 Susceptible PIPERACIL/TAZOBACTAM <=4 Susceptible Blood culture #2 [[id number]] Collected: 02/12/25 1017 Specimen: Blood Updated: 02/14/252121 Specimen Notes R HAND Culture NO GROWTH 2 DAYS Blood culture #1 [[id number]] Collected: 02/12/25 1011 Specimen: Blood Updated: 02/14/253 Specimen Notes LFA Culture NO GROWTH 2 DAYS Urine culture [[id number]] (Abnormal) Collected: 02/12/25 0544 Specimen: Urine, Clean Catch Midstream Updated: 02/14/25 1241 Culture >100,000 ORGANISMS/mL PROTEUS MIRABILIS <10,000 ORGANISMS/mL NORMAL URO GENITAL ARY CULTURE IN PROGRESS Blood culture, peripheral #2 [[id number]] (Abnormal) Collected: 02/11/251944 Specimen: Blood Updated: 02/14/25 0717 Culture PROTEUS MIRABILIS FOR SUSCEPTIBILITY, SEE PREVIOUS REPORT. Blood culture, peripheral #1 [[id number]] (Abnormal) (Susceptibility) Collected: 02/11/251939 Specimen: Blood Updated: 02/14/25 0716 Culture PROTEUS MIRABILIS Proteus species detected by PCR. No resistance genes detected by PCR. Susceptibility Proteus Mirabilis BRINA METHOD AMP/SULBACTAM <=2/1 Susceptible Ampicillin <=2 Susceptible Cefazolin (non-urinary) 4 Intermediate Cefazolin (urinary) 4 Susceptible Ceftriaxone <=0.25 Susceptible Ciprofloxacin <=0.06 Susceptible Gentamicin <=1 Susceptible Levofloxacin <=0.12 Susceptible PIPERACIL/TAZOBACTAM <=4 Susceptible Thank you for allowing us to participate in the care of this patient. - Es Lee DO 02/15/25 9:00 AM [facility] Infectious Diseases Please contact us via [email or web address] chat Cosigned by David Arroyo DO at 02/15/2025 4:21 PM EDT Associated attestation - David Arroyo DO - 02/15/2025 4:21 PM EDT I performed a history and physical examination of the patient Kjdontrell Lei, I independently reviewed the laboratory work and imaging as well as other studies mentioned in the above note; I have discussed the management with the resident. I have reviewed the above note, I agree with the findings and plan of care with the following additions: Agree with above, patient had recent right BKA done on 01/18/2025. Wound appears to be healing well. Patient has a longstanding history of paraplegia currently has a Huber catheter in place but reports at home he does a straight catheter. He reports at night sometimes he leaves the straight catheter in place and taped it to a collection bag. Occasionally he has leaks but does not believe he has had any significant leak recently. Blood cultures, urine culture and wound culture all growing Proteus mirabilis. Patient denies any significant pelvic pain or dysuria though may not have typical sensation given his paraplegia. He does not believe he has had contamination of his wound though he notes it is possible given how he manages his urine overnight. Noted sacral wound seems chest pressure no open wounds or drainage. BKA site looks to be healing well without any evidence of gross purulence or cellulitis. Would recommend a CT abdomen pelvis given we have an unclear initial source. Would continue on IV ceftriaxone currently likely need at least 14 days of antibiotic treatment. Thank you for allowing us to participate in the care of this patient. David Arroyo,DO [place] Infectious Disease [phone] Message me via [email or web address] secure chat documented in this encounter [facility] 02-16-2025 Progress note Formatting of t his note is different from the original. Occupational Therapy OT Type of Visit: Medical deferral Reason For Medical Deferral: Off unit Off Unit: Testing [facility] 02-16-2025 Progress note Formatting of t his note might be different from the original. DISCHARGE PLANNING NOTE Discharge to SNF- new referral to [facility] per request. Backup would be [facility] who has already accepted. BLS transport. Needs auth- need PT/OT eval prior to submission. SW will continue to follow for additional needs - EDUARDO GALVAN 02/16/25 10:42 AM [facility] is able to accept. notified and agreeable. Unable to update patient as he is occupied with other staff - EDUARDO GALVAN 02/16/25 12:25 PM Patient informed of [facility] acceptance. He's agreeable of change in plan. [facility] tasked to submit auth - EDUARDO GALVAN 02/16/25 4:18 PM [facility] 02-16-2025 Progress note Formatting of t his note might be different from the original. DISCHARGE PLANNING NOTE Referral to [facility]/ [facility], [place], [place] (P# ; F# ) [facility] 02-16-2025 Plan of care note Problem: Pain Goal: Patient goal is pain score less than 4, able to rest, and participant in treatment plan as appropriate Description: INTERVENTIONS: 1. Encourage patient or legal healthcare representative to report early pain and ask for pain medicine when needed 2. Assess pain using appropriate pain scale and include the scale used when documenting 3. Administer analgesics based on type and severity of pain and evaluate response within appropriate time frame 4. Implement non-pharmacological measures as appropriate and evaluate response 5. Consider cultural and social influences on pain and pain management 6. Notify LIP if interventions ineffective or patient reports new pain 7. Monitor vital signs including pulse ox, based on pain intervention 8. Reassess pain per policy 9. Teach patient or legal healthcare representative interventions for comforting Outcome: Progressing Note: Evaluation of progress towards goal: Pt denies pain at this time. Rates pain 0 out of 10 on the numeric pain scale. Will continue to monitor and reassess pain with every rounding. Problem: Safety Goal: Patient will be injury free during hospitalization Description: INTERVENTIONS: 1. Assess patient's risk for falls and implement fall prevention plan of care per policy 2. Provide and maintain a safe environment 3. Proper use of double Identifiers 4. Medication administration using the 5 rights 5. Hand hygiene 6. Specimens are labeled at the bedside 7. Instruct patient/ patient healthcare representative about use of safety devices 8. Include patient/ patient healthcare representative in decisions related to safety Outcome: Progressing Note: Evaluation of progress towards goal: Pt is free from falls. Bed is in lowest position, brakes are locked, environment is neat, lighting is sufficient, and appropriate identifiers are being utilized. Problem: Moderate - High Risk Fall Score Description: Mejia Fall Score of =/> 25 or indicated by [facility] Rehab Assessment Goal: Patient should be free from fall Description: Interventions: 1. [place] to environment 2. Hourly rounds addressing the 4 P's (Pain, Positioning, Possessions, Potty) 3. Clear area of hazards (spills, clutter, electrical cords, unnecessary equipment) 4. Place equipment (bed & TV controls, call light, phone, urinal) within reach 5. Encourage patient to wear glasses and hearing aides as appropriate 6. Maintain bed in lowest position 7. Lock wheels on bed/wheelchair 8. Provide adequate lighting, including night light 9. Assess need for additional bedding, food/fluids, pain med's prior to sleep/routinely 10. Provide gripper slippers or personal non-skid footwear 11. Teach patient and patient healthcare representative to maintain environment for safety and engage in all aspects of fall prevention program 12. Remind patient to call for help before getting out of bed 13. Initiate bed/chair/exit alarms supportive devices as appropriate, (chair wedge, no-skid floor mat, raised edge mattress, hip protectors) 15. Evaluate and identify Safe Patient Handling Equipment needs 16. Provide supervision when out of bed or chair 17. Utilize gait belt as needed to assist with ambulation 18. Place adaptive equipment (cane, walker) within reach 19. Request patient healthcare representative bring adaptive equipment/mobility aids from home or obtain and provide as needed 20. Consult pharmacy regarding effects of med's affecting mobility, cognition, and alternatives 21. Obtain physician order for PT if risk factors associated with mobility are present 22. Obtain physician order for OT as appropriate 24. Educate patient and patient healthcare representative how to maintain a safe environment during visitation times (notify nurse prior to leaving bedside) Outcome: Progressing Note: Evaluation of progress towards goal: Pt educated on fall risk. Alarm engaged and audible. Pt is wearing non-slip socks while out of bed. Two side rails are up, environment neat, clean, and well lit. Pt is up with assist. [facility] 02-16-2025 Plan of care note Problem: Pain Goal: Patient goal is pain score less than 4, able to rest, and participant in treatment plan as appropriate Description: INTERVENTIONS: 1. Encourage patient or legal healthcare representative to report early pain and ask for pain medicine when needed 2. Assess pain using appropriate pain scale and include the scale used when documenting 3. Administer analgesics based on type and severity of pain and evaluate response within appropriate time frame 4. Implement non-pharmacological measures as appropriate and evaluate response 5. Consider cultural and social influences on pain and pain management 6. Notify LIP if interventions ineffective or patient reports new pain 7. Monitor vital signs including pulse ox, end-tidal CO2 based on pain intervention 8. Reassess pain per policy 9. Teach patient or legal healthcare representative interventions for comforting Outcome: Progressing Note: Evaluation of progress towards goal: Pain managed with current regimen per orders Problem: Safety Goal: Patient will be injury free during hospitalization Description: INTERVENTIONS: 1. Assess patient's risk for falls and implement fall prevention plan of care per policy 2. Provide and maintain a safe environment 3. Proper use of double Identifiers 4. Medication administration using the 5 rights 5. Hand hygiene 6. Specimens are labeled at the bedside 7. Instruct patient/ patient healthcare representative about use of safety devices 8. Include patient/ patient healthcare representative in decisions related to safety Outcome: Progressing Note: Evaluation of progress towards goal: Patient identified with 2x identifiers. Patient remains free from injury and fall and uses call light appropriately. Patient verbalizes understanding regarding activity limitations and restrictions. Patient uses non-skid socks and assistive devices as needed and directed. Problem: Infection Goal: Absence of infection during hospitalization Description: INTERVENTIONS 1. Assess and monitor for signs and symptoms of infection. 2. Monitor lab/diagnostic results. 3. Monitor all insertion sites i.e., indwelling lines, tubes and drains. 4. Monitor endotracheal (as able) and nasal secretions for changes in amount and color. 5. Administer medications as ordered. 6. Instruct and encourage patient and family to use good hand hygiene technique. 7. Identify and instruct patient/patient healthcare representative in use of appropriate isolation precautions for identified infection/symptoms. 8. Provide and discuss with patient/patient healthcare representative on educational MDRO sheet. 9. Encourage and monitor nutritional status daily and consult enterprise infrastructure architect if indicated. 10. Implement neutropenic guidelines as needed. Outcome: Progressing Note: Evaluation of progress towards goal: Patient receiving antibiotics per orders. Patient afebrile. ID following. Labs and vital signs assessed for changes indicative of worsening infection Problem: Knowledge Deficit Goal: Patient/patient healthcare representative demonstrates understanding of disease process, treatment plan, medications, and discharge instructions Description: INTERVENTIONS 1. Complete learning assessment and assess knowledge base 2. Provide teaching at level of understanding 3. Provide teaching via preferred learning method(s) Outcome: Progressing Note: Evaluation of progress towards goal: Patient verbalizes understanding of treatment course and continues to ask clarifying questions as needed about care. Problem: Discharge Planning Goal: Discharge to post-acute care, other facility, or home with appropriate resources Description: Patient's goal is: INTERVENTIONS 1. Conduct assessment to determine patient/family and health care team treatment goals, and need for post-acute services based on payer coverage, community resources, and patient preferences, and barriers to discharge 2. Coordinate with Social work, Care Navigation, and Utilization Review to arrange appropriate level of services according to patient's needs based on patient preference and payer coverage in collaboration with the physician and health care team 3. Address psychosocial, clinical, and financial barriers to discharge as identified in assessment in conjunction with the patient/family and health care team 4. Consult appropriate ancillary services (i.e.. PT/OT/ST, etc) as needed 5. Communicate with and update the patient/family, physician, and health care team regarding progress on the discharge plan 6. Identify discharge learning needs (meds, wound care, etc). 7. Arrange for needed discharge transportation as appropriate Outcome: Progressing Note: Evaluation of progress towards goal: Progressing toward discharge pending final antibiotic plan and provider order Problem: Moderate - High Risk Fall Score Description: Mejia Fall Score of =/> 25 or indicated by [facility] Assessment Goal: Patient should be free from fall Description: Interventions: 1. [place] to environment 2. Hourly rounds addressing the 4 P's (Pain, Positioning, Possessions, Potty) 3. Clear area of hazards (spills, clutter, electrical cords, unnecessary equipment) 4. Place equipment (bed & TV controls, call light, phone, urinal) within reach 5. Encourage patient to wear glasses and hearing aides as appropriate 6. Maintain bed in lowest position 7. Lock wheels on bed/wheelchair 8. Provide adequate lighting, including night light 9. Assess need for additional bedding, food/fluids, pain med's prior to sleep/routinely 10. Provide gripper slippers or personal non-skid footwear 11. Teach patient and patient healthcare representative to maintain environment for safety and engage in all aspects of fall prevention program 12. Remind patient to call for help before getting out of bed 13. Initiate bed/chair/exit alarms supportive devices as appropriate, (chair wedge, no-skid floor mat, raised edge mattress, hip protectors) 14. Locate patient bed assignment for optimal visualization 15. Evaluate and identify Safe Patient Handling Equipment needs 16. Provide supervision when out of bed or chair 17. Utilize gait belt as needed to assist with ambulation 18. Place adaptive equipment (cane, walker) within reach 19. Request patient healthcare representative bring adaptive equipment/mobility aids from home or obtain and provide as needed 20. Consult pharmacy regarding effects of med's affecting mobility, cognition, and alternatives 21. Obtain physician order for PT if risk factors associated with mobility are present 22. Obtain physician order for OT as appropriate 23. Utilize diversional activities 24. Educate patient and patient healthcare representative how to maintain a safe environment during visitation times (notify nurse prior to leaving bedside) 25. Consider appropriateness of medical or non-medical language specialist 26. Set up voiding schedule as appropriate (every 2 hours) Outcome: Progressing Note: Evaluation of progress towards goal: Patient remains free from fall at this time with implemented safety measures. Bed locked and low position. Call light visible and within reach. Patient belongings within reach. Patient wearing non-skid footwear and has been educated to call for help with activity and mobility needs. Problem: Potential for Compromised Skin Integrity Goal: Skin integrity is maintained or improved Description: Patient's goal is: INTERVENTIONS 1. Perform initial skin assessment on admission and as needed 2. Turn patient every 2 hours and PRN 3. Relieve pressure to bony prominences 4. Avoid shearing 5. Keep skin clean and dry 6. Alternate a full bath with partial baths for elderly 7. Apply lotion/moisturizer on skin 8. Monitor patient's hygiene practices 9. Float heels 10. Collaborate with interdisciplinary team and initiate plans and interventions as needed Outcome: Progressing Note: Evaluation of progress towards goal: Skin integrity maintained. Patient non-compliant with [id number] recommendation. Education reinforced Goal: Patient's nutritional intake is adequate Description: Patient's goal is: INTERVENTIONS 1. Assess and monitor food intake and supplements, patient food preferences, nausea, vomiting, labs, oral cavity (gums, teeth, tongue, mucosa), proper denture fit, and cultural beliefs 2. Monitor for signs of hypoglycemia and hyperglycemia 3. Collaborate with interdisciplinary team and initiate plan and interventions as ordered 4. Monitor patient's weight 5. Assist patient with meals/food selection 6. Assist patient with eating 7. Allow adequate time for meals 8. Provide pleasant environment during mealtime 9. Increase social contact during mealtimes 10. Plan activities to conserve energy 11. Encourage/perform oral hygiene as appropriate 12. Encourage patient to take dietary supplement as ordered 13. Collaborate with clinical enterprise infrastructure architect 14. Include patient/ patient's healthcare representative in decisions related to nutrition Outcome: Progressing Note: Evaluation of progress towards goal: Patient consumed 50% of dinner tray. Problem: Urinary Incontinence Goal: Perineal skin integrity is maintained or improved Description: INTERVENTIONS 1. Assess genitourinary system, perineal skin, labs (urinalysis), and history of incontinence to include past management, aggravating, and alleviating factors 2. Keep skin clean and dry 3. Apply skin protectant 4. Develop skin care regimen 5. Provide privacy when changing patients incontinence device to maintain their dignity 6. Consider placing an indwelling catheter 7. Collaborate with interdisciplinary team and initiate plans and interventions as needed Outcome: Progressing Note: Evaluation of progress towards goal: Perineal skin maintained. Huber care per policy and as needed. Colostomy maintained per policy Problem: Genitourinary - Adult Goal: Absence of urinary retention Description: INTERVENTIONS: 1. Assess patient s ability to void and empty bladder 2. Monitor intake/output and perform bladder scan as ordered 3. Place urinary catheter per LIP order if needed 4. Discuss with LIP medications to alleviate retention as needed 5. Discuss and document need for catheter daily 6. Prevention of urinary infection per policy Outcome: Progressing Note: Evaluation of progress towards goal: Indwelling catheter in place and draining yellow urine without obstruction Problem: Metabolic/Fluid and Electrolytes - Adult Goal: Hemodynamic stability and optimal renal function maintained Description: Patient's goal is: INTERVENTIONS 1. Monitor labs and assess for signs and symptoms of volume excess or deficit 2. Monitor intake, output and patient weight 3. Monitor urine specific gravity, serum osmolarity and serum sodium as indicated or ordered 4. Monitor response to interventions for patient's volume status, including labs, urine output, blood pressure (other measures as available) 5. Encourage oral intake as appropriate 6. Instruct patient on fluid and nutrition restrictions as appropriate Outcome: Progressing Note: Evaluation of progress towards goal: Patient fluid status and electrolytes monitored each shift and as needed according to assessment data and labs. Fluids administered as ordered. PO intake encouraged as tolerated. Electrolyte supplements administered as ordered. Intake and output recorded per policy and as needed. Daily weights obtained per orders and as needed. Problem: Skin/Tissue Integrity - Adult Goal: Incisions, wounds, or drain sites healing without S/S of infection Description: INTERVENTIONS 1. ADMISSION & EVERY SHIFT: Assess and document risk factors for pressure ulcer development utilizing the David/David Q scale 2. Assess and document skin integrity 3. Assess and document dressing/incision, wound bed, drain sites and surrounding tissue 4. Implement wound care per orders 5. Initiate isolation precautions as appropriate 6. Initiate high risk precautions Outcome: Progressing Note: Evaluation of progress towards goal: Wound care per orders, qturning recommended to offload and prevent additional injury [facility] 02-15-2025 Progress note Formatting of t his note might be different from the original. DISCHARGE PLANNING NOTE Referral for return to [facility] in [place] (P#: [phone]; F#: ) [facility] 02-15-2025 Progress note Formatting of t his note might be different from the original. DISCHARGE PLANNING NOTE Discharge Plan: To return to [facility], [facility] tasked to submit return referral. Patient will need authorization to return. Will need S transport. Barriers include: IV abx. - Sandra Quigley 02/15/25 11:35 AM Cosigned by EDUARDO Galvan at 02/15/2025 1:24 PM EDT Associated attestation - Brenda Jenkins LSW - 02/15/2025 1:24 PM EDT - EDUARDO GALVAN 02/15/25 1:24 PM [facility] 02-15-2025 Consult note Associated Order (s): CONSULT WOUND CARE SERVICES Images from the original note were not included. Wound Care Service Line Consult Note Patient: Kj Lei Date of Admission: 02/14/2025 5:25 PM Request for Consult: BLE wounds PCP: Hudson Rios MD Admitted Chief Complaint: No chief complaint on file. Subjective/HPI: History of Present Illness: Kj Lei is a 79 y.o. male never smoker who initially presented to [facility] from correction facility ([facility], admitted for rehab s/p right BKA) with fever, chills and increased drainage from BKA incision. Patient has been being treated for proteus mirabilis bacteremia. Wound culture also grew proteus mirabilis. Patient was transferred to [facility] on 02/14/25. Past medical history includes but is not limited to right BKA (on 01/24/[address] Pimentel), COPD, HTN, EMMA, paraplegia, obesity, depression, anemia. Wound care is consulted for wounds of lower extremities that started prior to admission. Patient was seen by vascular surgery team on 02/15, no surgical intervention recommended, continue antibiotics per ID, continue local wound care. ID team is following. He was seen by wound care team in [place]. Current wound care regimen includes: Buttocks: Triad Left lower back: Foam dressing Left medial and lateral ankle: Medihoney, Adaptic, dry dressing Right BKA site: Medihoney to open areas, Xeroform to entire incision, cover with Kerlix, secure with Edward PMH: Past Medical History: Diagnosis Date Anemia Chronic hypercapnic respiratory failure ([facility]) COPD (chronic obstructive pulmonary disease[place] Depression Disease of lung HTN (hypertension) Obesity EMMA (obstructive sleep apnea) Paraplegia ([facility]) PSH: Past Surgical History: Procedure Laterality Date AMPUTATION BELOW KNEE Right 01/24/2025 Performed by Abraham Pimentel MD at [facility] COLOSTOMY ESOPHAGOGASTRODUODENOSCOPY PILONIDAL CYST / SINUS EXCISION VEIN SURGERY Left 07/15/2019 LT [facility]SV EVLT / PHLEBS Allergies: Allergies Allergen Reactions Adhesive Tape-Silicones Hives Home Meds: Medications Prior to Admission Medication Sig Dispense Refill Last Dose/Taking acetaminophen (TYLENOL EXTRA STRENGTH) 500 mg tablet Take 2 tablets (1,000 mg total) by mouth every 6 (six) hours. 30 tablet 0 ascorbic acid (VITAMIN C) 500 mg tablet Take 1 tablet (500 mg total) by mouth in the morning. aspirin 81 mg chewable tablet Chew 1 tablet (81 mg total) and swallow in the morning. atorvastatin (LIPITOR) 20 mg tablet Take 1 tablet (20 mg total) by mouth in the morning and 1 tablet (20 mg total) before bedtime. carvedilol (COREG) 6.25 mg tablet Take 1 tablet (6.25 mg total) by mouth in the morning and 1 tablet (6.25 mg total) before bedtime. CEPHalexin (KEFLEX) 500 mg capsule Take 1 capsule (500 mg total) by mouth in the morning and 1 capsule (500 mg total) before bedtime. cholecalciferol (VITAMIN D3) 50,000 units capsule Take 1 capsule (50,000 Units total) by mouth once a week. 4 capsule 11 citalopram (CeleXA) 40 mg tablet Take 1 tablet (40 mg total) by mouth in the morning. ferrous sulfate 325 (65 FE) MG tablet Take 1 tablet (325 mg total) by mouth daily with breakfast. furosemide (LASIX) 20 mg tablet Take 1 tablet (20 mg total) by mouth 2 (two) times a day. oxygen Inhale 3-4 L/min as needed. potassium chloride (K-TAB,KLOR-CON) 10 MEQ CR tablet Take 1 tablet (10 mEq total) by mouth daily with dinner. (Patient not taking: Reported on 02/12/2025) potassium chloride (KLOR-CON) 20 mEq packet Take 1 packet (20 mEq total) by mouth in the morning. tamsulosin (FLOMAX) 0.4 mg capsule Take 1 capsule (0.4 mg total) by mouth nightly. zinc sulfate (ZINCATE) 50 mg zinc (220 mg) capsule Take 1 capsule (220 mg total) by mouth in the morning. Social History: Social History Socioeconomic History Marital status: [...] Social Drivers of Health Financial Resource Strain: Low Risk (02/12/2025) Overall Financial Resource Strain (CARDIA) Difficulty of Paying Living Expenses: Not very hard Food Insecurity: No Food Insecurity (02/14/2025) Hunger Screening Food Insecurity - Worry: Never True Food Insecurity - Inability: Never True Transportation Needs: No Transportation Needs (02/14/2025) PRAPARE - Transportation Lack of Transportation (Medical): No Lack of Transportation (Non-Medical): No Physical Activity: Inactive (02/12/2025) Exercise Vital Sign Days of Exercise per Week: 0 days Minutes of Exercise per Session: 0 min Stress: Stress Concern Present (02/12/2025) [place] [employer] - Occupational Stress Questionnaire Feeling of Stress : To some extent Social Connections: Moderately Isolated (02/12/2025) Social Connection and Isolation Panel [NHANES] Frequency of Communication with Friends and Family: Three times a week Frequency of Social Gatherings with Friends and Family: Three times a week Attends Jain Services: Never Active Member of Clubs or Organizations: No Attends Club or Organization Meetings: Never Marital Status: Interpersonal Safety: Not At Risk (02/14/2025) Humiliation, Afraid, Rape, and Kick questionnaire Fear of Current or Ex-Partner: No Emotionally Abused: No Physically Abused: No Sexually Abused: No Housing Instability: Low Risk (02/14/2025) Housing Instability Housing Instability: No Family History: Family History Problem Relation Age of Onset Cancer Mother COPD Father I have personally reviewed past medical history including surgeries, social history, and family history. I have also reviewed allergies and home medications. They are documented in this note to their detail, and if there are none noted, they will further indicate no pertinent history. Review of Systems Review of Systems Constitutional: Negative for chills and fever. HENT: Negative for congestion. Respiratory: Negative for shortness of breath. Cardiovascular: Negative for chest pain. Gastrointestinal: Negative for abdominal pain. Musculoskeletal: Right BKA Skin: Positive for wound. Neurological: Positive for weakness (paraplegia) and numbness (below waist). Negative for dizziness and headaches. Objective: Physical Exam Vital Signs: BP 119/62 Pulse 97 Temp 36.9 C (98.4 F) (Oral) Resp 18 Ht 182.9 cm (6') Wt 104.7 kg (230 lb 13.2 oz) SpO2 95% BMI 31.31 kg/m Pain: Pain Assessment: No/denies pain Pain Score: 0 Pain Location: Leg Patient's Stated Acceptable Pain Level: No pain Physical Exam Vitals reviewed. Constitutional: General: He is not in acute distress. Appearance: He is not toxic-appearing or diaphoretic. HENT: Head: Normocephalic. Cardiovascular: Rate and Rhythm: Normal rate. Pulses: Dorsalis pedis pulses are 2+ on the left side. Pulmonary: Effort: Pulmonary effort is normal. No respiratory distress. Musculoskeletal: Left lower leg: Edema present. Comments: Patient with contractures, sits with bilateral hips in abducted position, knees in some flexion, right >left. Right BKA. 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 Skin: General: Skin is warm. Comments: See wound assessment. Neurological: General: No focal deficit present. Mental Status: He is alert and oriented to person, place, and time. Sensory: Sensory deficit (no sensation below waist area) present. Gait: Gait abnormal (paraplegia). Psychiatric: Behavior: Behavior normal. Wound Assessment: Right BKA stump Right lateral BKA stump Location: right BKA stump; present upon admission Type of Wound/Aetiology: surgical wounds Measurement: 0/7cm x 8cm x 0.3cm Undermining: none Tunneling: none Severity: fat-layer exposed Drainage/Exudate/Odor: moderate serous no odor Wound bed: slough Wound Edges: attached Periwound: intact Measurable Improvement: new wound encounter Wound Assessment: Left medial ankle 4.5cm x 1cm x 0.2cm blocked Left lateral ankle 5cm x 1.4cm x 0.2cm blocked Location: left medial and lateral ankle; present upon admission Type of Wound/Aetiology: chronic venous stasis ulcers Measurement: as above Undermining: none Tunneling: none Severity: fat-layer exposed Drainage/Exudate/Odor: moderate serous no odor Wound bed: slough Wound Edges: attached Periwound: edema and intact Measurable Improvement: new wound encounter Studies Reviewed: Labs Reviewed: Results from last 7 days Lab Units 02/15/25 0702/14/25 0543 02/13/2545202/11/250 WBC X10E9/L 6.3 10.8 14.2* 4.6 HEMOGLOBIN g/dL 8.4* 8.9* 9.1* 11.7* HEMATOCRIT % 25.6* 26.7* 27.6* 35.8* MCV fL 90 90 90 91 PLATELETS X10E9/L 81* 85* 102* 199 Results from last 7 days Lab Units 02/15/25 0702/14/25 0543 02/13/2545202/11/251939 POTASSIUM mmol/L 3.9 3.6 3.4* 4.1 CALCIUM mg/dL 8.4* 8.4* 8.0* 8.7 CO2 mmol/L BUN mg/dL 18 46* 42* 28* CREATININE mg/dL 0.46* 1.62* 1.30* 1.44* GLUCOSE mg/dL 93 154* 144* 154* Results from last 7 days Lab Units 02/12/25 0745 INR 1.2 PROTIME sec 13.6* APTT sec 28 Results from last 7 days Lab Units 02/15/25 0723 02/14/25 0543 02/13/25 0453 02/11/25 1940 ALT U/L 21 37 49* 66* AST U/L 17 24 50* 77* ALK PHOS U/L 61 67 69 75 Pathology/Cytology Results No results found for the last 168 hours. Microbiology Results Procedure Component Value Units Date/Time Blood culture #2 [[id number]] Resulted: 02/15/25 1405 Specimen: Blood, Peripheral Draw Updated: 02/15/25 1405 Blood culture #1 [[id number]] Resulted: 02/15/25 1400 Specimen: Blood, Peripheral Draw Updated: 02/15/25 1400 Wound culture superficial includes gram stain [[id number]] (Abnormal) (Susceptibility) Collected: 02/12/25 1819 Specimen: Wound Swab Updated: 02/14/25 0759 Gram Stain Result 0 WHITE BLOOD CELLS/LPF 0 SQUAMOUS EPITHELIAL CELLS/LPF NO ORGANISMS SEEN Culture MODERATE PROTEUS MIRABILIS ALONG WITH RARE NORMAL SKIN ARY Susceptibility Proteus Mirabilis BRINA METHOD AMP/SULBACTAM <=2/1 Susceptible Ampicillin <=2 Susceptible Cefazolin (non-urinary) 4 Intermediate Cefazolin (urinary) 4 Susceptible Ceftriaxone <=0.25 Susceptible Ciprofloxacin <=0.06 Susceptible Gentamicin <=1 Susceptible Levofloxacin <=0.12 Susceptible PIPERACIL/TAZOBACTAM <=4 Susceptible Blood culture #2 [[id number]] Collected: 02/12/25 1017 Specimen: Blood Updated: 02/14/252121 Specimen Notes R HAND Culture NO GROWTH 2 DAYS Blood culture #1 [[id number]] Collected: 02/12/25 1011 Specimen: Blood Updated: 02/14/252122 Specimen Notes LFA Culture NO GROWTH 2 DAYS Urine culture [[id number]] (Abnormal) Collected: 02/12/25 0544 Specimen: Urine, Clean Catch Midstream Updated: 02/15/25 1333 Culture >100,000 ORGANISMS/mL PROTEUS MIRABILIS 50,000 to 100,000 ORGANISMS/mL MORGANELLA MORGANII <10,000 ORGANISMS/mL NORMAL URO GENITAL ARY SUSCEPTIBILITY TESTING IN PROGRESS Blood culture, peripheral #2 [[id number]] (Abnormal) Collected: 02/11/251944 Specimen: Blood Updated: 02/14/2517 Culture PROTEUS MIRABILIS FOR SUSCEPTIBILITY, SEE PREVIOUS REPORT. Blood culture, peripheral #1 [[id number]] (Abnormal) (Susceptibility) Collected: 02/11/251939 Specimen: Blood Updated: 02/14/25 0716 Culture PROTEUS MIRABILIS Proteus species detected by PCR. No resistance genes detected by PCR. Susceptibility Proteus Mirabilis BRINA METHOD AMP/SULBACTAM <=2/1 Susceptible Ampicillin <=2 Susceptible Cefazolin (non-urinary) 4 Intermediate Cefazolin (urinary) 4 Susceptible Ceftriaxone <=0.25 Susceptible Ciprofloxacin <=0.06 Susceptible Gentamicin <=1 Susceptible Levofloxacin <=0.12 Susceptible PIPERACIL/TAZOBACTAM <=4 Susceptible Imaging Reviewed: No results found. Vas art doppler lwr bilat mult lev/PVR 01/24/2025 Narrative Right: Essentially normal PVR waveform contour at [...] at the phone number beside their name. Assessment/Plan/Education: Principal Problem: Sepsis ([facility]) Active Problems: Essential hypertension EMMA treated with BiPAP Chronic respiratory failure with hypoxia and hypercapnia ([facility]-H[facility]) Paraplegia ([facility]) Below-knee amputation of right lower extremity ([facility]) Sepsis with acute renal failure ([facility]) 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 species 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) Surgical wound present Dressing/Skin Care/Edema Management/Offloading: Left medial and lateral ankle wounds: Cleanse with soap and water, rinse, pat dry. Apply silver alginate to wound bed (cut to fit), cover with ABD pad, secure with Kerlix. Repeat daily and prn. Elevate left lower leg, float heel. Right BKA stump wound/inicison: Cleanse with soap and water, rinse, pat dry. Apply silver alginate (ribbon) to incision, cover with ABD pad, secure with Kerlix and Edward wrap. Repeat daily and prn. Offloading/Skin Care/Edema Management: - continue specialty bed CHAYO/pressure redistribution - isotour with CHAYO pump - turn and reposition minimally every 2 hours - pad and protect bony prominences - moisturize dry skin, do not massage vigorously - elevate left lower extremities and float heel - elevate upper extremities on pillows - left TruVue boot Antibiotics: per ID team Studies: reviewed as above Medical Management: per primary team Wound care will continue to follow while inpatient, orders written for bedside RN's to complete daily skin assessment and wound care orders daily and/or as written. May discharge from wound care perspective when medically stable as advised by other services. Follow up: In the outpatient wound care clinic at [place] within 1-2 weeks of discharge. Thank you for allowing us to participate in the care of this patient. Please feel free to call us with any questions or concerns. LASHANDA MULLEN PA-C [facility] Thu-Thu 8a-3p [phone] - pager - 8a-3p Secure Chat preferred & fastest response time Needs outside these hours please contact the reciprocating department: general surgery, vascular surgery, ortho or podiatry. Thank you! Lashanda Mullen PA-C 02/15/25 1521 [facility] [employer] 02-15-2025 Consult note Associated Order (s): IP CONSULT TO INFECTIOUS DISEASES Images from the original note were not included. Infectious Diseases Academic Team - Initial Consult Note - Please contact us via [email or web address] chat. After hours, call [phone] Patient name: Kj Lei Patient Today's Date and Time: 02/15/2025, 9:00 AM Admission Date: 02/14/2025 Impression: Proteus mirabilis bacteremia from BCx x2 collected 02/11/25 Febrile, tachycardia, tachypnea have all resolved Given cefepime and vancomycin at [facility] Now on ceftriaxone 2 g Q24H Proteus mirabilis wound culture collected 02/12/25 with similar susceptibilities of BCx Huber catheter and colostomy bag in place Recommendations: Continue ceftriaxone 2 g Q24H for a minimum of 14 days as Proteus mirabilis susceptibilities have come back showing this is an appropriate treatment course. Consider CTAP as patient is paraplegic and may not sense dysuria Pending BCx x2 collected on 02/15 Continue monitoring fever curve. Subjective Reason for consultation / Chief complaint: Bacteremia, transferred from [place] History of Present Illness Kj Lei is a 79 y.o.-year-old male who was initially admitted on 02/14/2025 with a PMHx of HTN, HLD, chronic venous stasis, COPD on 4L NC at baseline, EMMA, and paraplegia who presents for fevers tachycardia and tachypnea. Patient received a BKA of the right limb due to critical limb ischemia with gangrene on 01/24/25 and was discharged back home only to be admitted again so that he may be sent to PT at a senior care. At senior care, patient developed fevers, tachycardia, tachypnea, and medical staff there were concern patient was having a wound infection in his right stump. Patient was then sent to [place] for evaluation, blood culture, urine culture, and wound culture there showed Proteus mirabilis growth. Patient was given cefepime and vancomycin (1 dosage), and was switched to ceftriaxone upon speciation and susceptibility finalization. During encounter, patient did not have any symptoms, and was not complaining of any fevers. Patient did seemed to be somewhat of a poor historian, however did reiterate the majority of his clinical course appropriately. Our consultation addresses :complex antimicrobial therapy counseling and treatment Thank you for consulting us, we will continue following. Past Medical History: Past Medical History: Diagnosis Date Anemia Chronic hypercapnic respiratory failure ([facility]) COPD (chronic obstructive pulmonary disease) ([facility] Depression Disease of lung HTN (hypertension) Obesity EMMA (obstructive sleep apnea) Paraplegia ([facility]) Past Surgical History: Past Surgical History: Procedure Laterality Date AMPUTATION BELOW KNEE Right 01/24/2025 Performed by Abraham Pimentel MD at [facility] COLOSTOMY ESOPHAGOGASTRODUODENOSCOPY PILONIDAL CYST / SINUS EXCISION VEIN SURGERY Left 07/15/2019 LT [facility] EVLT / PHLEBS Medications: cefTRIAXone (ROCEPHIN) IV, 2,000 mg, intravenous, Q24H citalopram, 40 mg, oral, Daily enoxaparin (LOVENOX) injection, 40 mg, subcutaneous, Daily ferrous sulfate, 325 mg, oral, Daily with breakfast sodium chloride, 3 mL, intravenous, Q12H DOROTHY tamsulosin, 0.4 mg, oral, Nightly Social History: Social History Socioeconomic History Marital status: Tobacco Use Smoking status: Never Smokeless tobacco: Never Substance and Sexual Activity Alcohol use: Yes Alcohol/week: 0.0 standard drinks of alcohol Comment: occasionally Drug use: No Social Drivers of Health Financial Resource Strain: Low Risk (02/12/2025) Overall Financial Resource Strain (CARDIA) Difficulty of Paying Living Expenses: Not very hard Food Insecurity: No Food Insecurity (02/14/2025) Hunger Screening Food Insecurity - Worry: Never True Food Insecurity - Inability: Never True Transportation Needs: No Transportation Needs (02/14/2025) PRAPARE - Transportation Lack of Transportation (Medical): No Lack of Transportation (Non-Medical): No Physical Activity: Inactive (02/12/2025) Exercise Vital Sign Days of Exercise per Week: 0 days Minutes of Exercise per Session: 0 min Stress: Stress Concern Present (02/12/2025) [place] [employer] - Occupational Stress Questionnaire Feeling of Stress : To some extent Social Connections: Moderately Isolated (02/12/2025) Social Connection and Isolation Panel [NHANES] Frequency of Communication with Friends and Family: Three times a week Frequency of Social Gatherings with Friends and Family: Three times a week Attends Jain Services: Never Active Member of Clubs or Organizations: No Attends Club or Organization Meetings: Never Marital Status: Interpersonal Safety: Not At Risk (02/14/2025) Humiliation, Afraid, Rape, and Kick questionnaire Fear of Current or Ex-Partner: No Emotionally Abused: No Physically Abused: No Sexually Abused: No Housing Instability: Low Risk (02/14/2025) Housing Instability Housing Instability: No Family History: Family History Problem Relation Age of Onset Cancer Mother COPD Father Immunization History: Immunization History Administered Date(s) Administered COVID-19 Vaccine, vector-nr, rS-Ad26, PF, 0.5mL 02/06/2021 COVID-19, mRNA, LNP-S, PF, 100mcg/0.5mL Dose 11/20/2021 Covid-19, Mrna, Lnp-s, Pf,ariana-sucrose,30 Mcg/0.3ml Fall23 08/29/2024 Influenza High Dose Preservative Free IM 09/06/2018, 09/26/2019, 11/21/2020, 08/29/2024 Influenza, High-dose, Quadrivalent 09/15/2016, 09/21/2017, 08/27/2021, 08/27/2022, 08/26/2023 Influenza, Injectable, Quadrivalent 11/22/2020 Pneumococcal Conjugate 13-Valent 09/10/2015 Pneumococcal Polysaccharide 11/30/2005, 05/01/2016 Tuberculin Skin Test; Unspecified Formulation 02/01/2025, 02/10/2025 Zoster Vaccine Recombinant 05/27/2023, 08/28/2023 Allergies: Allergies Allergen Reactions Adhesive Tape-Silicones Hives Review of Systems: General: No fevers or chills. Eyes: No double vision or blurry vision. ENT: No sore throat or runny nose. Cardiovascular: No chest pain or palpitations. Lung: No shortness of breath or cough. Abdomen: No nausea, vomiting, diarrhea, or abdominal pain. Genitourinary: No increased urinary frequency, or dysuria. Musculoskeletal: No muscle aches or pains. Hematologic: No bleeding or bruising. Neurologic: No headache, weakness, numbness, or tingling. Objective Physical Examination: BP 136/82 Pulse 95 Temp 36.9 C (98.4 F) (Oral) Resp 18 Wt 104.7 kg (230 lb 13.2 oz) SpO2 100% BMI 31.31 kg/m Temperature Range: Temp: 36.9 C (98.4 F) Temp Av.9 C (98.4 F) Min: 36.7 C (98.1 F) Max: 37.1 C (98.7 F) General Appearance: Awake, alert, and in no apparent distress Head: Normocephalic, without obvious abnormality, atraumatic Eyes: Pupils equal, round, reactive, to light and accommodation; extraocular movements intact; sclera anicteric; conjunctivae pink ENT: Oropharynx clear, without erythema, exudate, or thrush. Neck: Supple, without lymphadenopathy. Pulmonary/Chest: Clear to auscultation, without wheezes, rales, or rhonchi Cardiovascular: Regular rate and rhythm without murmurs, rubs, or gallops. Abdomen: Soft, nontender, nondistended. Extremities: No cyanosis, clubbing, edema, no joint effusions, right leg and stump wrapped, with no pain on palpation, and slight warmth but equivalent to the left side. Neurologic: Bulk and tone are normal. No atrophy is noted. Moves extremities. Sensation grossly intact Skin: No rash or lesions. Labs: Results from last 7 days Lab Units 02/15/25 0702/14/25 0543 02/13/25 0453 WBC X10E9/L 6.3 10.8 14.2* HEMOGLOBIN g/dL 8.4* 8.9* 9.1* HEMATOCRIT % 25.6* 26.7* 27.6* MCV fL 90 90 90 PLATELETS X10E9/L 81* 85* 102* NEUTROS ABS X10E9/L 4.7 9.3* 13.0* LYMPHS ABS AUTO X10E9/L 0.4* 0.4* 0.5* MONOS ABS AUTO X10E9/L 0.8 0.8 0.7 EOS ABS AUTO X10E9/L 0.4 0.2 0.1 BASOS ABS AUTO X10E9/L 0.1 0.1 0.0 Results from last 7 days Lab Units 02/15/25 0702/14/25 0543 02/13/25 0453 SODIUM mmol/L 140 138 137 POTASSIUM mmol/L 3.9 3.6 3.4* CHLORIDE mmol/L 106 106 105 CO2 mmol/L 27 25 26 BUN mg/dL 18 46* 42* CREATININE mg/dL 0.46* 1.62* 1.30* GLUCOSE mg/dL 93 154* 144* CALCIUM mg/dL 8.4* 8.4* 8.0* ALK PHOS U/L 61 67 69 ALT U/L 21 37 49* AST U/L 17 24 50* Results from last 7 days Lab Units 02/14/25 0543 PROCALCITONIN ng/mL 28.61* Results from last 7 days Lab Units 02/12/25 0502 SPECIFIC GRAVITY GIOVANI 1.010 LEUKOCYTE ESTERASE GIOVANI MODERATE* UROBILINOGEN GIOVANI eu/dL 0.2 Imaging Studies: MR ankle left without contrast Result Date: 02/13/2025 MR LEFT ANKLE CLINICAL INFORMATION: Osteomyelitis, [...] Noé Dewitt MD on 02/13/2025 1:05 PM I have personally reviewed these studies. Cultures: Microbiology Results Procedure Component Value Units Date/Time Wound culture superficial includes gram stain [[id number]] (Abnormal) (Susceptibility) Collected: 02/12/25 1819 Specimen: Wound Swab Updated: 02/14/25 0759 Gram Stain Result 0 WHITE BLOOD CELLS/LPF 0 SQUAMOUS EPITHELIAL CELLS/LPF NO ORGANISMS SEEN Culture MODERATE PROTEUS MIRABILIS ALONG WITH RARE NORMAL SKIN ARY Susceptibility Proteus Mirabilis BRINA METHOD AMP/SULBACTAM <=2/1 Susceptible Ampicillin <=2 Susceptible Cefazolin (non-urinary) 4 Intermediate Cefazolin (urinary) 4 Susceptible Ceftriaxone <=0.25 Susceptible Ciprofloxacin <=0.06 Susceptible Gentamicin <=1 Susceptible Levofloxacin <=0.12 Susceptible PIPERACIL/TAZOBACTAM <=4 Susceptible Blood culture #2 [[id number]] Collected: 02/12/25 1017 Specimen: Blood Updated: 02/14/252121 Specimen Notes R HAND Culture NO GROWTH 2 DAYS Blood culture #1 [[id number]] Collected: 02/12/25 1011 Specimen: Blood Updated: 02/14/252122 Specimen Notes LFA Culture NO GROWTH 2 DAYS Urine culture [[id number]] (Abnormal) Collected: 02/12/25 0544 Specimen: Urine, Clean Catch Midstream Updated: 02/14/25 1241 Culture >100,000 ORGANISMS/mL PROTEUS MIRABILIS <10,000 ORGANISMS/mL NORMAL URO GENITAL ARY CULTURE IN PROGRESS Blood culture, peripheral #2 [[id number]] (Abnormal) Collected: 02/11/251944 Specimen: Blood Updated: 02/14/25 0717 Culture PROTEUS MIRABILIS FOR SUSCEPTIBILITY, SEE PREVIOUS REPORT. Blood culture, peripheral #1 [[id number]] (Abnormal) (Susceptibility) Collected: 02/11/25 194 Specimen: Blood Updated: 02/14/25 0716 Culture PROTEUS MIRABILIS Proteus species detected by PCR. No resistance genes detected by PCR. Susceptibility Proteus Mirabilis BRINA METHOD AMP/SULBACTAM <=2/1 Susceptible Ampicillin <=2 Susceptible Cefazolin (non-urinary) 4 Intermediate Cefazolin (urinary) 4 Susceptible Ceftriaxone <=0.25 Susceptible Ciprofloxacin <=0.06 Susceptible Gentamicin <=1 Susceptible Levofloxacin <=0.12 Susceptible PIPERACIL/TAZOBACTAM <=4 Susceptible Thank you for allowing us to participate in the care of this patient. - Es Lee DO 02/15/25 9:00 AM [facility] Infectious Diseases Please contact us via [email or web address] chat Cosigned by David Arroyo DO at 02/15/2025 4:21 PM EDT Associated attestation - David Arroyo DO - 02/15/2025 4:21 PM EDT I performed a history and physical examination of the patient Kj Lima Lei, I independently reviewed the laboratory work and imaging as well as other studies mentioned in the above note; I have discussed the management with the resident. I have reviewed the above note, I agree with the findings and plan of care with the following additions: Agree with above, patient had recent right BKA done on 01/18/2025. Wound appears to be healing well. Patient has a longstanding history of paraplegia currently has a Huber catheter in place but reports at home he does a straight catheter. He reports at night sometimes he leaves the straight catheter in place and taped it to a collection bag. Occasionally he has leaks but does not believe he has had any significant leak recently. Blood cultures, urine culture and wound culture all growing Proteus mirabilis. Patient denies any significant pelvic pain or dysuria though may not have typical sensation given his paraplegia. He does not believe he has had contamination of his wound though he notes it is possible given how he manages his urine overnight. Noted sacral wound seems chest pressure no open wounds or drainage. BKA site looks to be healing well without any evidence of gross purulence or cellulitis. Would recommend a CT abdomen pelvis given we have an unclear initial source. Would continue on IV ceftriaxone currently likely need at least 14 days of antibiotic treatment. Thank you for allowing us to participate in the care of this patient. David Arroyo DO [place] Infectious Disease [phone] Message me via [employer] [facility] 02-15-2025 Plan of care note Problem: Pain Goal: Patient goal is pain score less than 4, able to rest, and participant in treatment plan as appropriate Description: INTERVENTIONS: 1. Encourage patient or legal healthcare representative to report early pain and ask for pain medicine when needed 2. Assess pain using appropriate pain scale and include the scale used when documenting 3. Administer analgesics based on type and severity of pain and evaluate response within appropriate time frame 4. Implement non-pharmacological measures as appropriate and evaluate response 5. Consider cultural and social influences on pain and pain management 6. Notify LIP if interventions ineffective or patient reports new pain 7. Monitor vital signs including pulse ox, based on pain intervention 8. Reassess pain per policy 9. Teach patient or legal healthcare representative interventions for comforting Outcome: Progressing Note: Evaluation of progress towards goal: Pt denies pain at this time. Rates pain 0 out of 10 on the numeric pain scale. Will continue to monitor and reassess pain with every rounding. Problem: Safety Goal: Patient will be injury free during hospitalization Description: INTERVENTIONS: 1. Assess patient's risk for falls and implement fall prevention plan of care per policy 2. Provide and maintain a safe environment 3. Proper use of double Identifiers 4. Medication administration using the 5 rights 5. Hand hygiene 6. Specimens are labeled at the bedside 7. Instruct patient/ patient healthcare representative about use of safety devices 8. Include patient/ patient healthcare representative in decisions related to safety Outcome: Progressing Note: Evaluation of progress towards goal: Pt is free from falls. Bed is in lowest position, brakes are locked, environment is neat, lighting is sufficient, and appropriate identifiers are being utilized. Problem: Moderate - High Risk Fall Score Description: Mejia Fall Score of =/> 25 or indicated by [facility] Assessment Goal: Patient should be free from fall Description: Interventions: 1. [place] to environment 2. Hourly rounds addressing the 4 P's (Pain, Positioning, Possessions, Potty) 3. Clear area of hazards (spills, clutter, electrical cords, unnecessary equipment) 4. Place equipment (bed & TV controls, call light, phone, urinal) within reach 5. Encourage patient to wear glasses and hearing aides as appropriate 6. Maintain bed in lowest position 7. Lock wheels on bed/wheelchair 8. Provide adequate lighting, including night light 9. Assess need for additional bedding, food/fluids, pain med's prior to sleep/routinely 10. Provide gripper slippers or personal non-skid footwear 11. Teach patient and patient healthcare representative to maintain environment for safety and engage in all aspects of fall prevention program 12. Remind patient to call for help before getting out of bed 13. Initiate bed/chair/exit alarms supportive devices as appropriate, (chair wedge, no-skid floor mat, raised edge mattress, hip protectors) 15. Evaluate and identify Safe Patient Handling Equipment needs 16. Provide supervision when out of bed or chair 17. Utilize gait belt as needed to assist with ambulation 18. Place adaptive equipment (cane, walker) within reach 19. Request patient healthcare representative bring adaptive equipment/mobility aids from home or obtain and provide as needed 20. Consult pharmacy regarding effects of med's affecting mobility, cognition, and alternatives 21. Obtain physician order for PT if risk factors associated with mobility are present 22. Obtain physician order for OT as appropriate 24. Educate patient and patient healthcare representative how to maintain a safe environment during visitation times (notify nurse prior to leaving bedside) Outcome: Progressing Note: Evaluation of progress towards goal: Pt educated on fall risk. Alarm engaged and audible. Pt is wearing non-slip socks while out of bed. Two side rails are up, environment neat, clean, and well lit. Pt is up with assist. [facility] 02-15-2025 History and physical note Images from the original note were not included. [facility] INTERNAL MEDICINE [facility] [address] [facility] [id number] Hospital Medicine History & Physical Patient: Kj Lei Date of : 1945 Room: [facility] PCP: Hudson Rios MD Admission date: 02/14/2025 5:25 PM Encounter date: 02/15/25 Hospital Day: 2 SUBJECTIVE Kj Lei is a 79 y.o. 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 He presented to [place] on 02/12/2025 for a wound check, stated he had recent right leg amputation [id number] and was discharged from the hospital on 02/01/2025, was seen by Wound Care and sent to the emergency department. Reports that he had tachycardia, fevers, chills at home. He was initially started on cefepime vancomycin. He had wound cultures done on 02/12/2025 that resulted with Proteus mirabilis. He was fed blood cultures that were done 02/11/2025, both resulted with Proteus mirabilis. Antibiotics were de-escalated to [place], Infectious Disease consulted. He was transferred to [facility] for formal evaluation by vascular surgery per their recommendations. He was also found to have left ankle wound and had left ankle MRI completed which was negative for osteomyelitis. At the time of assessment he is resting comfortably in bed, declining pain at this time. He was seen by vascular surgery today who states there is no need for acute surgical intervention at this time. We will need a final antibiotic plan from Infectious Disease prior to discharge. Patient reports decreased appetite, nutrition consulted. Allergies: Adhesive tape-silicones Prior to Admission medications Medication Sig Start Date End Date Taking? Authorizing Provider acetaminophen (TYLENOL EXTRA STRENGTH) 500 mg tablet Take 2 tablets (1,000 mg total) by mouth every 6 (six) hours. 01/26/25 Jamar Lee MD ascorbic acid (VITAMIN C) 500 mg tablet Take 1 tablet (500 mg total) by mouth in the morning. Not In System Ref Prov aspirin 81 mg chewable tablet Chew 1 tablet (81 mg total) and swallow in the morning. Not In System Ref Prov atorvastatin (LIPITOR) 20 mg tablet Take 1 tablet (20 mg total) by mouth in the morning and 1 tablet (20 mg total) before bedtime. Not In System Ref Prov carvedilol (COREG) 6.25 mg tablet Take 1 tablet (6.25 mg total) by mouth in the morning and 1 tablet (6.25 mg total) before bedtime. Not In System Ref Prov CEPHalexin (KEFLEX) 500 mg capsule Take 1 capsule (500 mg total) by mouth in the morning and 1 capsule (500 mg total) before bedtime. 01/10/25 Not In System Ref Prov cholecalciferol (VITAMIN D3) 50,000 units capsule Take 1 capsule (50,000 Units total) by mouth once a week. 02/01/25 VERONIKA Villafuerte citalopram (CeleXA) 40 mg tablet Take 1 tablet (40 mg total) by mouth in the morning. Not In System Ref Prov ferrous sulfate 325 (65 FE) MG tablet Take 1 tablet (325 mg total) by mouth daily with breakfast. 02/01/25 VERONIKA Villafuerte furosemide (LASIX) 20 mg tablet Take 1 tablet (20 mg total) by mouth 2 (two) times a day. Not In System Ref Prov oxygen Inhale 3-4 L/min as needed. Not In System Ref Prov potassium chloride (K-TAB,KLOR-CON) 10 MEQ CR tablet Take 1 tablet (10 mEq total) by mouth daily with dinner. Patient not taking: Reported on 02/12/2025 Not In System Ref Prov potassium chloride (KLOR-CON) 20 mEq packet Take 1 packet (20 mEq total) by mouth in the morning. Not In System Ref Prov tamsulosin (FLOMAX) 0.4 mg capsule Take 1 capsule (0.4 mg total) by mouth nightly. 02/01/25 VERONIKA Villafuerte zinc sulfate (ZINCATE) 50 mg zinc (220 mg) capsule Take 1 capsule (220 mg total) by mouth in the morning. Not In System Ref Prov Code Status: DNRCCA DNI Past Medical History: Patient has a past medical history of Anemia, Chronic hypercapnic respiratory failure ([facility]), COPD (chronic obstructive pulmonary disease) ([facility] Depression, Disease of lung, HTN (hypertension), Obesity, EMMA (obstructive sleep apnea), and Paraplegia ([facility] Past Surgical History: Patient has a past surgical history that includes Colostomy; Esophagogastroduodenoscopy; Pilonidal cyst / sinus excision; Vein Surgery (Left, 07/15/2019); and Leg amputation, lower tibia/fibula (Right, 01/24/2025). Family History: Patient's family history includes COPD in his father; Cancer in his mother. Social History: Patient reports that he has never smoked. He has never used smokeless tobacco. He reports current alcohol use. He reports that he does not use drugs. Review of Systems Constitutional: Positive for activity change, appetite change and fatigue. Negative for chills, fever and unexpected weight change. HENT: Negative for congestion, dental problem, hearing loss, rhinorrhea, sore throat, trouble swallowing and voice change. Eyes: Negative for visual disturbance. Respiratory: Negative for cough, shortness of breath and wheezing. Cardiovascular: Negative for chest pain, palpitations and leg swelling. Gastrointestinal: Negative for abdominal pain, blood in stool, constipation, diarrhea, nausea and vomiting. Genitourinary: Negative for difficulty urinating, dysuria, enuresis, frequency and hematuria. Musculoskeletal: Positive for gait problem. Negative for arthralgias, joint swelling and myalgias. Skin: Negative for color change, rash and wound. Neurological: Positive for weakness. Negative for dizziness, seizures, syncope, speech difficulty, numbness and headaches. Hematological: Negative for adenopathy. Does not bruise/bleed easily. Psychiatric/Behavioral: Negative for dysphoric mood and sleep disturbance. The patient is not nervous/anxious. OBJECTIVE BP 136/82 Pulse 95 Temp 36.9 C (98.4 F) (Oral) Resp 18 Wt 104.7 kg (230 lb 13.2 oz) SpO2 100% BMI 31.31 kg/m Temp: [36.7 C (98.1 F)-37.1 C (98.7 F)] 36.9 C (98.4 F) Pulse: [93-98] 95 Resp: [18-22] 18 BP: (120-139)/(71-88) 136/82 SpO2: [96 %-100 %] 100 % O2 Device: Nasal cannula O2 Flow Rate (L/min): [3 L/min-4 L/min] 4 L/min Intake/Output Summary (Last 24 hours) at 02/15/2025 0907 Last data filed at 02/15/2025 0400 Gross per 24 hour Intake 300 ml Output 1675 ml Net -1375 ml Physical Exam Constitutional: General: He is not in acute distress. Appearance: Normal appearance. He is well-developed. HENT: Head: Normocephalic and atraumatic. Right Ear: External ear normal. Left Ear: External ear normal. Nose: Nose normal. Right Sinus: No maxillary sinus tenderness or frontal sinus tenderness. Left Sinus: No maxillary sinus tenderness or frontal sinus tenderness. Mouth/Throat: Lips: [place]. Mouth: Mucous membranes are moist. Pharynx: Oropharynx is clear. Eyes: General: No scleral icterus. Extraocular Movements: Extraocular movements intact. Pupils: Pupils are equal, round, and reactive to light. Neck: Vascular: No carotid bruit or JVD. Cardiovascular: Rate and Rhythm: Normal rate and regular rhythm. Pulses: Radial pulses are 2+ on the right side and 2+ on the left side. Heart sounds: Normal heart sounds, S1 normal and S2 normal. No murmur heard. No friction rub. No gallop. Pulmonary: Effort: Pulmonary effort is normal. Breath sounds: Decreased breath sounds present. No wheezing, rhonchi or rales. Abdominal: General: Bowel sounds are normal. Palpations: Abdomen is soft. Tenderness: There is no abdominal tenderness. Musculoskeletal: Right lower leg: No edema. Left lower leg: Edema present. 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 Skin: General: Skin is warm and dry. Capillary Refill: Capillary refill takes less than 2 seconds. Coloration: Skin is pale. Findings: No erythema, rash or wound. Comments: RLE & LLE wounds present-see media tab Neurological: General: No focal deficit present. Mental Status: He is alert and oriented to person, place, and time. Motor: Weakness present. Psychiatric: Attention and Perception: Attention normal. Mood and Affect: Mood and affect normal. Behavior: Behavior normal. Behavior is cooperative. Medications Scheduled: atorvastatin, 20 mg, oral, Nightly carvediloL, 6.25 mg, oral, BID cefTRIAXone (ROCEPHIN) IV, 2,000 mg, intravenous, Q24H citalopram, 40 mg, oral, Daily enoxaparin (LOVENOX) injection, 40 mg, subcutaneous, Daily ferrous sulfate, 325 mg, oral, Daily with breakfast sodium chloride, 3 mL, intravenous, Q12H DOROTHY tamsulosin, 0.4 mg, oral, Nightly Infusions: dextrose 5 % in water, 100 mL/hr sodium chloride 0.9 %, 20 mL/hr As Needed: acetaminophen acetaminophen albuterol dextrose dextrose 5 % in water dextrose 50 % in water (D50W) glucagon (human recombinant) magnesium sulfate magnesium sulfate ondansetron potassium chloride OR potassium chloride OR potassium chloride IV (Adult) sennosides-docusate sodium sodium chloride sodium chloride sodium chloride 0.9 % Allergies: Adhesive tape-silicones Labs Recent Results (from the past 24 hours) Vancomycin, trough To be drawn prior to the 4th dose Collection Time: 02/14/25 7:11 PM Result Value Ref Range Vancomycin trough 10.9 5.0 - 20.0 ug/mL Magnesium Collection Time: 02/15/25 7:23 AM Result Value Ref Range Magnesium 1.8 1.8 - 2.6 mg/dL Comprehensive metabolic panel Collection Time: 02/15/25 7:23 AM Result Value Ref Range Sodium 140 134 - 146 mmol/L Potassium, Bld 3.9 3.5 - 5.0 mmol/L Chloride 106 98 - 109 mmol/L CO2 27 22 - 32 mmol/L Anion gap 7 5 - 15 mmol/L BUN 18 5 - 27 mg/dL Creatinine 0.46 (L) 0.60 - 1.30 mg/dL Glucose 93 65 - 99 mg/dL Calcium 8.4 (L) 8.5 - 10.5 mg/dL Total Protein 5.9 (L) 6.0 - 8.0 g/dL Albumin 2.7 (L) 3.2 - 5.3 g/dL Alkaline Phosphatase 61 39 - 130 U/L AST 17 0 - 41 U/L ALT 21 0 - 40 U/L Total bilirubin 0.3 0.3 - 1.2 mg/dL eGFR (CKD-EPI)non-race dependent >90 >59 ml/min/1.73sq.m CBC auto differential Collection Time: 02/15/25 7:23 AM Result Value Ref Range White Blood Cells 6.3 4.0 - 11.0 X10E9/L RBC count 2.84 (L) 4.10 - 5.70 X10E12/L Hemoglobin 8.4 (L) 13.0 - 17.0 g/dL Hematocrit 25.6 (L) 39 - 49 % MCV 90 80 - 100 fL MCH 29.5 27 - 34 pg MCHC 32.6 32 - 36 g/dL RDW 14.7 11.5 - 15.0 % Platelets 81 (L) 150 - 450 X10E9/L MPV 8.4 7 - 12 fL % neutrophils 74.8 % % lymphocytes 6.0 % % monocytes 12.2 % % eosinophils 5.9 % % Basophils 1.1 % Neutrophils Absolute (A) 4.7 1.5 - 6.6 X10E9/L Lymphocytes Absolute 0.4 (L) 1.0 - 3.5 X10E9/L Monocytes Absolute 0.8 0 - 0.9 X10E9/L Eosinophils Absolute 0.4 0.0 - 0.4 X10E9/L Basophils Absolute 0.1 0.0 - 0.2 X10E9/L Radiology MR ankle left without contrast Result Date: 02/13/2025 Narrative: MR LEFT ANKLE CLINICAL INFORMATION: Osteomyelitis, infection [...] Noé Dewitt MD on 02/13/2025 1:05 PM X-ray tibia fibula right minimum 2 views Result Date: 02/11/2025 Narrative: Exam: 2 views of the right lower leg dated 02/11/2025. HISTORY: Right lower leg amputated 2 weeks ago. Clinical concern for osteomyelitis. COMPARISON: None. IMPRESSION: No radiographic evidence for osteomyelitis in the stump of the right tibia and right fibula. Generalized osteopenia. No soft tissue gas. Finalized by Ronda Calvillo MD on 02/11/2025 8:29 PM X-ray chest 1 view Result Date: 02/11/2025 Narrative: CLINICAL INFORMATION: Sepsis COMPARISON: Chest radiograph dated [...] Ronda Calvillo MD on 02/11/2025 8:20 PM Vas art doppler lwr bilat mult lev/PVR Result Date: 01/25/2025 Narrative: Right: Essentially normal PVR waveform contour at [...] at the phone number beside their name. HOSPITAL PROBLEM LIST Principal Problem: Sepsis ([facility]) Active Problems: Essential hypertension EMMA treated with BiPAP Chronic respiratory failure with hypoxia and hypercapnia ([facility]) Paraplegia ([facility]) Below-knee amputation of right lower extremity ([facility]) Sepsis with acute renal failure ([facility]) 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 species ASSESSMENT & PLAN Sepsis w/acute renal failure due to Proteus mirabilis bacteremia secondary to stump infection s/p R BKA 01/24/25, acute cystitis due to Proteus mirabilis Initially meeting SIRS criteria Vascular, infectious disease consulted Blood cultures 02/11 2/2 positive Proteus mirabilis, susceptible to Rocephin Repeat blood cultures 02/12 NGTD Procalcitonin improving 15.22 today L medial/lateral ankle wounds, Colostomy MRI completed, negative for osteomyelitis Wound care following Continue dressing changes as instructed by Wound Care Thrombocytopenia, normocytic normochromic anemia Platelets 81 No active signs of bleeding Anemia panel pending. Monitor Acute kidney injury secondary to hypotension due to sepsis-RESOLVED BP stable Creatinine peaked at 1.62, today 0.46 D/c IVF Avoid nephrotoxic agents Hypertension, Hyperlipidemia Atorvastatin Coreg was initially held due to hypotension, we will resume today Aspirin on hold for potential procedure No recent echo on file Chronic hypoxic respiratory failure Chronically uses 4 L O2 via nasal cannula at home Follows outpatient with pulmonology EMMA Continue home bipap Chart reviewed. Admission orders placed and home medications reconciled. DVT/VTE prophylaxis: SCD and pharmacologic prophylaxis, enoxaparin. GI prophylaxis: not indicated. PT/OT to evaluate and treat. DC planning: pending clinical course. VERONIKA BUTLER 02/15/2025 9:07 AM [facility] Internal Medicine 7AM-7PM & 7PM-7AM: EpicChat or page through On-Call [employer]. VERONIKA Butler 02/15/25 1330 Attending Addendum: I Dr Kena Lee, personally performed a face to face diagnostic evaluation on this patient. I have reviewed the note authored by the advance practice provider including history, review of systems, physical examination, medical decision making and agree with the assessment and plan as written. I have seen and evaluated the patient,I have repeated the borden portions of the physical exam and concur with the KAE findings.I have reviewed all laboratory findings and imaging reprts/films.I agree with the plan as noted. [facility] 02-15-2025 History and physical note Images from the original note were not included. [facility] INTERNAL MEDICINE [facility] [address] [facility] [id number] Hospital Medicine History & Physical Patient: Kj Lei Date of : 1945 Room: [place] [id number] PCP: Hudson Rios MD Admission date: 02/14/2025 5:25 PM Encounter date: 02/15/25 Hospital Day: 2 SUBJECTIVE Kj Lei is a 79 y.o. 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 He presented to [facility] on 02/12/2025 for a wound check, stated he had recent right leg amputation [id number] and was discharged from the hospital on 02/01/2025, was seen by Wound Care and sent to the emergency department. Reports that he had tachycardia, fevers, chills at home. He was initially started on cefepime vancomycin. He had wound cultures done on 02/12/2025 that resulted with Proteus mirabilis. He was fed blood cultures that were done 02/11/2025, both resulted with Proteus mirabilis. Antibiotics were de-escalated to Rocephin, Infectious Disease consulted. He was transferred to [facility] for formal evaluation by vascular surgery per their recommendations. He was also found to have left ankle wound and had left ankle MRI completed which was negative for osteomyelitis. At the time of assessment he is resting comfortably in bed, declining pain at this time. He was seen by vascular surgery today who states there is no need for acute surgical intervention at this time. We will need a final antibiotic plan from Infectious Disease prior to discharge. Patient reports decreased appetite, nutrition consulted. Allergies: Adhesive tape-silicones Prior to Admission medications Medication Sig Start Date End Date Taking? Authorizing Provider acetaminophen (TYLENOL EXTRA STRENGTH) 500 mg tablet Take 2 tablets (1,000 mg total) by mouth every 6 (six) hours. 01/26/25 Jamar Lee MD ascorbic acid (VITAMIN C) 500 mg tablet Take 1 tablet (500 mg total) by mouth in the morning. Not In System Ref Prov aspirin 81 mg chewable tablet Chew 1 tablet (81 mg total) and swallow in the morning. Not In System Ref Prov atorvastatin (LIPITOR) 20 mg tablet Take 1 tablet (20 mg total) by mouth in the morning and 1 tablet (20 mg total) before bedtime. Not In System Ref Prov carvedilol (COREG) 6.25 mg tablet Take 1 tablet (6.25 mg total) by mouth in the morning and 1 tablet (6.25 mg total) before bedtime. Not In System Ref Prov CEPHalexin (KEFLEX) 500 mg capsule Take 1 capsule (500 mg total) by mouth in the morning and 1 capsule (500 mg total) before bedtime. 01/10/25 Not In System Ref Prov cholecalciferol (VITAMIN D3) 50,000 units capsule Take 1 capsule (50,000 Units total) by mouth once a week. 02/01/25 VERONIKA Villafuerte citalopram (CeleXA) 40 mg tablet Take 1 tablet (40 mg total) by mouth in the morning. Not In System Ref Prov ferrous sulfate 325 (65 FE) MG tablet Take 1 tablet (325 mg total) by mouth daily with breakfast. 02/01/25 VERONIKA Villafuerte furosemide (LASIX) 20 mg tablet Take 1 tablet (20 mg total) by mouth 2 (two) times a day. Not In System Ref Prov oxygen Inhale 3-4 L/min as needed. Not In System Ref Prov potassium chloride (K-TAB,KLOR-CON) 10 MEQ CR tablet Take 1 tablet (10 mEq total) by mouth daily with dinner. Patient not taking: Reported on 02/12/2025 Not In System Ref Prov potassium chloride (KLOR-CON) 20 mEq packet Take 1 packet (20 mEq total) by mouth in the morning. Not In System Ref Prov tamsulosin (FLOMAX) 0.4 mg capsule Take 1 capsule (0.4 mg total) by mouth nightly. 02/01/25 Akbar Back [employer] zinc sulfate (ZINCATE) 50 mg zinc (220 mg) capsule Take 1 capsule (220 mg total) by mouth in the morning. Not In System Ref Prov Code Status: DNRCCA DNI Past Medical History: Patient has a past medical history of Anemia, Chronic hypercapnic respiratory failure ([facility]), COPD (chronic obstructive pulmonary disease) ([facility]), Depression, Disease of lung, HTN (hypertension), Obesity, EMMA (obstructive sleep apnea), and Paraplegia ([facility]). Past Surgical History: Patient has a past surgical history that includes Colostomy; Esophagogastroduodenoscopy; Pilonidal cyst / sinus excision; Vein Surgery (Left, 07/15/2019); and Leg amputation, lower tibia/fibula (Right, 01/24/2025). Family History: Patient's family history includes COPD in his father; Cancer in his mother. Social History: Patient reports that he has never smoked. He has never used smokeless tobacco. He reports current alcohol use. He reports that he does not use drugs. Review of Systems Constitutional: Positive for activity change, appetite change and fatigue. Negative for chills, fever and unexpected weight change. HENT: Negative for congestion, dental problem, hearing loss, rhinorrhea, sore throat, trouble swallowing and voice change. Eyes: Negative for visual disturbance. Respiratory: Negative for cough, shortness of breath and wheezing. Cardiovascular: Negative for chest pain, palpitations and leg swelling. Gastrointestinal: Negative for abdominal pain, blood in stool, constipation, diarrhea, nausea and vomiting. Genitourinary: Negative for difficulty urinating, dysuria, enuresis, frequency and hematuria. Musculoskeletal: Positive for gait problem. Negative for arthralgias, joint swelling and myalgias. Skin: Negative for color change, rash and wound. Neurological: Positive for weakness. Negative for dizziness, seizures, syncope, speech difficulty, numbness and headaches. Hematological: Negative for adenopathy. Does not bruise/bleed easily. Psychiatric/Behavioral: Negative for dysphoric mood and sleep disturbance. The patient is not nervous/anxious. OBJECTIVE BP 136/82 Pulse 95 Temp 36.9 C (98.4 F) (Oral) Resp 18 Wt 104.7 kg (230 lb 13.2 oz) SpO2 100% BMI 31.31 kg/m Temp: [36.7 C (98.1 F)-37.1 C (98.7 F)] 36.9 C (98.4 F) Pulse: [93-98] 95 Resp: [18-22] 18 BP: (120-139)/(71-88) 136/82 SpO2: [96 %-100 %] 100 % O2 Device: Nasal cannula O2 Flow Rate (L/min): [3 L/min-4 L/min] 4 L/min Intake/Output Summary (Last 24 hours) at 02/15/2025 0907 Last data filed at 02/15/2025 0400 Gross per 24 hour Intake 300 ml Output 1675 ml Net -1375 ml Physical Exam Constitutional: General: He is not in acute distress. Appearance: Normal appearance. He is well-developed. HENT: Head: Normocephalic and atraumatic. Right Ear: External ear normal. Left Ear: External ear normal. Nose: Nose normal. Right Sinus: No maxillary sinus tenderness or frontal sinus tenderness. Left Sinus: No maxillary sinus tenderness or frontal sinus tenderness. Mouth/Throat: Lips: [place]. Mouth: Mucous membranes are moist. Pharynx: Oropharynx is clear. Eyes: General: No scleral icterus. Extraocular Movements: Extraocular movements intact. Pupils: Pupils are equal, round, and reactive to light. Neck: Vascular: No carotid bruit or JVD. Cardiovascular: Rate and Rhythm: Normal rate and regular rhythm. Pulses: Radial pulses are 2+ on the right side and 2+ on the left side. Heart sounds: Normal heart sounds, S1 normal and S2 normal. No murmur heard. No friction rub. No gallop. Pulmonary: Effort: Pulmonary effort is normal. Breath sounds: Decreased breath sounds present. No wheezing, rhonchi or rales. Abdominal: General: Bowel sounds are normal. Palpations: Abdomen is soft. Tenderness: There is no abdominal tenderness. Musculoskeletal: Right lower leg: No edema. Left lower leg: Edema present. 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 Skin: General: Skin is warm and dry. Capillary Refill: Capillary refill takes less than 2 seconds. Coloration: Skin is pale. Findings: No erythema, rash or wound. Comments: RLE & LLE wounds present-see media tab Neurological: General: No focal deficit present. Mental Status: He is alert and oriented to person, place, and time. Motor: Weakness present. Psychiatric: Attention and Perception: Attention normal. Mood and Affect: Mood and affect normal. Behavior: Behavior normal. Behavior is cooperative. Medications Scheduled: atorvastatin, 20 mg, oral, Nightly carvediloL, 6.25 mg, oral, BID cefTRIAXone (ROCEPHIN) IV, 2,000 mg, intravenous, Q24H citalopram, 40 mg, oral, Daily enoxaparin (LOVENOX) injection, 40 mg, subcutaneous, Daily ferrous sulfate, 325 mg, oral, Daily with breakfast sodium chloride, 3 mL, intravenous, Q12H DOROTHY tamsulosin, 0.4 mg, oral, Nightly Infusions: dextrose 5 % in water, 100 mL/hr sodium chloride 0.9 %, 20 mL/hr As Needed: acetaminophen acetaminophen albuterol dextrose dextrose 5 % in water dextrose 50 % in water (D50W) glucagon (human recombinant) magnesium sulfate magnesium sulfate ondansetron potassium chloride OR potassium chloride OR potassium chloride IV (Adult) sennosides-docusate sodium sodium chloride sodium chloride sodium chloride 0.9 % Allergies: Adhesive tape-silicones Labs Recent Results (from the past 24 hours) Vancomycin, trough To be drawn prior to the 4th dose Collection Time: 02/14/25 7:11 PM Result Value Ref Range Vancomycin trough 10.9 5.0 - 20.0 ug/mL Magnesium Collection Time: 02/15/25 7:23 AM Result Value Ref Range Magnesium 1.8 1.8 - 2.6 mg/dL Comprehensive metabolic panel Collection Time: 02/15/25 7:23 AM Result Value Ref Range Sodium 140 134 - 146 mmol/L Potassium, Bld 3.9 3.5 - 5.0 mmol/L Chloride 106 98 - 109 mmol/L CO2 27 22 - 32 mmol/L Anion gap 7 5 - 15 mmol/L BUN 18 5 - 27 mg/dL Creatinine 0.46 (L) 0.60 - 1.30 mg/dL Glucose 93 65 - 99 mg/dL Calcium 8.4 (L) 8.5 - 10.5 mg/dL Total Protein 5.9 (L) 6.0 - 8.0 g/dL Albumin 2.7 (L) 3.2 - 5.3 g/dL Alkaline Phosphatase 61 39 - 130 U/L AST 17 0 - 41 U/L ALT 21 0 - 40 U/L Total bilirubin 0.3 0.3 - 1.2 mg/dL eGFR (CKD-EPI)non-race dependent >90 >59 ml/min/1.73sq.m CBC auto differential Collection Time: 02/15/25 7:23 AM Result Value Ref Range White Blood Cells 6.3 4.0 - 11.0 X10E9/L RBC count 2.84 (L) 4.10 - 5.70 X10E12/L Hemoglobin 8.4 (L) 13.0 - 17.0 g/dL Hematocrit 25.6 (L) 39 - 49 % MCV 90 80 - 100 fL MCH 29.5 27 - 34 pg MCHC 32.6 32 - 36 g/dL RDW 14.7 11.5 - 15.0 % Platelets 81 (L) 150 - 450 X10E9/L MPV 8.4 7 - 12 fL % neutrophils 74.8 % % lymphocytes 6.0 % % monocytes 12.2 % % eosinophils 5.9 % % Basophils 1.1 % Neutrophils Absolute (A) 4.7 1.5 - 6.6 X10E9/L Lymphocytes Absolute 0.4 (L) 1.0 - 3.5 X10E9/L Monocytes Absolute 0.8 0 - 0.9 X10E9/L Eosinophils Absolute 0.4 0.0 - 0.4 X10E9/L Basophils Absolute 0.1 0.0 - 0.2 X10E9/L Radiology MR ankle left without contrast Result Date: 02/13/2025 Narrative: MR LEFT ANKLE CLINICAL INFORMATION: Osteomyelitis, infection [...] Noé Dewitt MD on 02/13/2025 1:05 PM X-ray tibia fibula right minimum 2 views Result Date: 02/11/2025 Narrative: Exam: 2 views of the right lower leg dated 02/11/2025. HISTORY: Right lower leg amputated 2 weeks ago. Clinical concern for osteomyelitis. COMPARISON: None. IMPRESSION: No radiographic evidence for osteomyelitis in the stump of the right tibia and right fibula. Generalized osteopenia. No soft tissue gas. Finalized by Ronda Calvillo MD on 02/11/2025 8:29 PM X-ray chest 1 view Result Date: 02/11/2025 Narrative: CLINICAL INFORMATION: Sepsis COMPARISON: Chest radiograph dated [...] Ronda Calvillo MD on 02/11/2025 8:20 PM Vas art doppler lwr bilat mult lev/PVR Result Date: 01/25/2025 Narrative: Right: Essentially normal PVR waveform contour at [...] at the phone number beside their name. HOSPITAL PROBLEM LIST Principal Problem: Sepsis ([facility]) Active Problems: Essential hypertension EMMA treated with BiPAP Chronic respiratory failure with hypoxia and hypercapnia ([facility]) Paraplegia ([facility]) Below-knee amputation of right lower extremity ([facility]) Sepsis with acute renal failure ([facility]) 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 species ASSESSMENT & PLAN Sepsis w/acute renal failure due to Proteus mirabilis bacteremia secondary to stump infection s/p R BKA 01/24/25, acute cystitis due to Proteus mirabilis Initially meeting SIRS criteria Vascular, infectious disease consulted Blood cultures 02/11 01/01 positive Proteus mirabilis, susceptible to Rocephin Repeat blood cultures 02/12 NGTD Procalcitonin improving 15.22 today L medial/lateral ankle wounds, Colostomy MRI completed, negative for osteomyelitis Wound care following Continue dressing changes as instructed by Wound Care Thrombocytopenia, normocytic normochromic anemia Platelets 81 No active signs of bleeding Anemia panel pending. Monitor Acute kidney injury secondary to hypotension due to sepsis-RESOLVED BP stable Creatinine peaked at 1.62, today 0.46 D/c IVF Avoid nephrotoxic agents Hypertension, Hyperlipidemia Atorvastatin Coreg was initially held due to hypotension, we will resume today Aspirin on hold for potential procedure No recent echo on file Chronic hypoxic respiratory failure Chronically uses 4 L O2 via nasal cannula at home Follows outpatient with pulmonology EMMA Continue home bipap Chart reviewed. Admission orders placed and home medications reconciled. DVT/VTE prophylaxis: SCD and pharmacologic prophylaxis, enoxaparin. GI prophylaxis: not indicated. PT/OT to evaluate and treat. DC planning: pending clinical course. VERONIKA BUTLER 02/15/2025 9:07 AM [facility] Internal Medicine 7AM-7PM & 7PM-7AM: EpicChat or page through On-Call [employer]. VERONIKA uBtler 02/15/25 [id number] Attending Addendum: I Dr Kena Lee, personally performed a face to face diagnostic evaluation on this patient. I have reviewed the note authored by the advance practice provider including history, review of systems, physical examination, medical decision making and agree with the assessment and plan as written. I have seen and evaluated the patient,I have repeated the borden portions of the physical exam and concur with the KAE findings.I have reviewed all laboratory findings and imaging reprts/films.I agree with the plan as noted. documented in this encounter [facility] 02-15-2025 Plan of care note Problem: Pain Goal: Patient goal is pain score less than 4, able to rest, and participant in treatment plan as appropriate Description: INTERVENTIONS: 1. Encourage patient or legal healthcare representative to report early pain and ask for pain medicine when needed 2. Assess pain using appropriate pain scale and include the scale used when documenting 3. Administer analgesics based on type and severity of pain and evaluate response within appropriate time frame 4. Implement non-pharmacological measures as appropriate and evaluate response 5. Consider cultural and social influences on pain and pain management 6. Notify LIP if interventions ineffective or patient reports new pain 7. Monitor vital signs including pulse ox, end-tidal CO2 based on pain intervention 8. Reassess pain per policy 9. Teach patient or legal healthcare representative interventions for comforting Outcome: Progressing Note: Evaluation of progress towards goal: Patient verbalizes pain appropriately using 0-10 pain scale. Patient pain managed with pharmacological and non-pharmacological means by way of medication, repositioning, relaxation techniques and conversation. Pain assessed every 4 hours and as needed for treatment. Changes in pain score and medication response Problem: Safety Goal: Patient will be injury free during hospitalization Description: INTERVENTIONS: 1. Assess patient's risk for falls and implement fall prevention plan of care per policy 2. Provide and maintain a safe environment 3. Proper use of double Identifiers 4. Medication administration using the 5 rights 5. Hand hygiene 6. Specimens are labeled at the bedside 7. Instruct patient/ patient healthcare representative about use of safety devices 8. Include patient/ patient healthcare representative in decisions related to safety Outcome: Progressing Note: Evaluation of progress towards goal: Patient identified with 2x identifiers. Patient remains free from injury and fall and uses call light appropriately. Patient verbalizes understanding regarding activity limitations and restrictions. Patient uses non-skid socks and assistive devices as needed and directed. Problem: Infection Goal: Absence of infection during hospitalization Description: INTERVENTIONS 1. Assess and monitor for signs and symptoms of infection. 2. Monitor lab/diagnostic results. 3. Monitor all insertion sites i.e., indwelling lines, tubes and drains. 4. Monitor endotracheal (as able) and nasal secretions for changes in amount and color. 5. Administer medications as ordered. 6. Instruct and encourage patient and family to use good hand hygiene technique. 7. Identify and instruct patient/patient healthcare representative in use of appropriate isolation precautions for identified infection/symptoms. 8. Provide and discuss with patient/patient healthcare representative on educational MDRO sheet. 9. Encourage and monitor nutritional status daily and consult enterprise infrastructure architect if indicated. 10. Implement neutropenic guidelines as needed. Outcome: Progressing Note: Evaluation of progress towards goal: Patient receiving antibiotic per orders pending ID consultation. Afebrile at present. Labs and vital signs per orders and reassessed for changes indicative of worsening infection Problem: Knowledge Deficit Goal: Patient/patient healthcare representative demonstrates understanding of disease process, treatment plan, medications, and discharge instructions Description: INTERVENTIONS 1. Complete learning assessment and assess knowledge base 2. Provide teaching at level of understanding 3. Provide teaching via preferred learning method(s) Outcome: Progressing Note: Evaluation of progress towards goal: Patient verbalizes understanding of treatment course and continues to ask clarifying questions as needed about care. Problem: Discharge Planning Goal: Discharge to post-acute care, other facility, or home with appropriate resources Description: Patient's goal is: INTERVENTIONS 1. Conduct assessment to determine patient/family and health care team treatment goals, and need for post-acute services based on payer coverage, community resources, and patient preferences, and barriers to discharge 2. Coordinate with Social work, Care Navigation, and Utilization Review to arrange appropriate level of services according to patient's needs based on patient preference and payer coverage in collaboration with the physician and health care team 3. Address psychosocial, clinical, and financial barriers to discharge as identified in assessment in conjunction with the patient/family and health care team 4. Consult appropriate ancillary services (i.e.. PT/OT/ST, etc) as needed 5. Communicate with and update the patient/family, physician, and health care team regarding progress on the discharge plan 6. Identify discharge learning needs (meds, wound care, etc). 7. Arrange for needed discharge transportation as appropriate Outcome: Progressing Note: Evaluation of progress towards goal: Patient progressing toward discharge pending antibiotic therapy and plan, vascular plan, and provider order Problem: Moderate - High Risk Fall Score Description: Mejia Fall Score of =/> 25 or indicated by [facility] Assessment Goal: Patient should be free from fall Description: Interventions: 1. [place] to environment 2. Hourly rounds addressing the 4 P's (Pain, Positioning, Possessions, Potty) 3. Clear area of hazards (spills, clutter, electrical cords, unnecessary equipment) 4. Place equipment (bed & TV controls, call light, phone, urinal) within reach 5. Encourage patient to wear glasses and hearing aides as appropriate 6. Maintain bed in lowest position 7. Lock wheels on bed/wheelchair 8. Provide adequate lighting, including night light 9. Assess need for additional bedding, food/fluids, pain med's prior to sleep/routinely 10. Provide gripper slippers or personal non-skid footwear 11. Teach patient and patient healthcare representative to maintain environment for safety and engage in all aspects of fall prevention program 12. Remind patient to call for help before getting out of bed 13. Initiate bed/chair/exit alarms supportive devices as appropriate, (chair wedge, no-skid floor mat, raised edge mattress, hip protectors) 14. Locate patient bed assignment for optimal visualization 15. Evaluate and identify Safe Patient Handling Equipment needs 16. Provide supervision when out of bed or chair 17. Utilize gait belt as needed to assist with ambulation 18. Place adaptive equipment (cane, walker) within reach 19. Request patient healthcare representative bring adaptive equipment/mobility aids from home or obtain and provide as needed 20. Consult pharmacy regarding effects of med's affecting mobility, cognition, and alternatives 21. Obtain physician order for PT if risk factors associated with mobility are present 22. Obtain physician order for OT as appropriate 23. Utilize diversional activities 24. Educate patient and patient healthcare representative how to maintain a safe environment during visitation times (notify nurse prior to leaving bedside) 25. Consider appropriateness of medical or non-medical language specialist 26. Set up voiding schedule as appropriate (every 2 hours) Outcome: Progressing Note: Evaluation of progress towards goal: Patient remains free from fall at this time with implemented safety measures. Bed locked and low position. Call light visible and within reach. Patient belongings within reach. Patient wearing non-skid footwear and has been educated to call for help with activity and mobility needs. Maxi gaetano used for transfers as needed Problem: Potential for Compromised Skin Integrity Goal: Skin integrity is maintained or improved Description: Patient's goal is: INTERVENTIONS 1. Perform initial skin assessment on admission and as needed 2. Turn patient every 2 hours and PRN 3. Relieve pressure to bony prominences 4. Avoid shearing 5. Keep skin clean and dry 6. Alternate a full bath with partial baths for elderly 7. Apply lotion/moisturizer on skin 8. Monitor patient's hygiene practices 9. Float heels 10. Collaborate with interdisciplinary team and initiate plans and interventions as needed Outcome: Progressing Note: Evaluation of progress towards goal: Foam dressings to ankle. Offloading and q2hour turning encouraged to prevent additional skin injury and break down Goal: Patient's nutritional intake is adequate Description: Patient's goal is: INTERVENTIONS 1. Assess and monitor food intake and supplements, patient food preferences, nausea, vomiting, labs, oral cavity (gums, teeth, tongue, mucosa), proper denture fit, and cultural beliefs 2. Monitor for signs of hypoglycemia and hyperglycemia 3. Collaborate with interdisciplinary team and initiate plan and interventions as ordered 4. Monitor patient's weight 5. Assist patient with meals/food selection 6. Assist patient with eating 7. Allow adequate time for meals 8. Provide pleasant environment during mealtime 9. Increase social contact during mealtimes 10. Plan activities to conserve energy 11. Encourage/perform oral hygiene as appropriate 12. Encourage patient to take dietary supplement as ordered 13. Collaborate with clinical enterprise infrastructure architect 14. Include patient/ patient's healthcare representative in decisions related to nutrition Outcome: Progressing Note: Evaluation of progress towards goal: Patient consumed 75% of dinner tray provided. Receiving IVF at present and drinking PO. Tolerating diet without nausea/vomiting. Problem: Urinary Incontinence Goal: Perineal skin integrity is maintained or improved Description: INTERVENTIONS 1. Assess genitourinary system, perineal skin, labs (urinalysis), and history of incontinence to include past management, aggravating, and alleviating factors 2. Keep skin clean and dry 3. Apply skin protectant 4. Develop skin care regimen 5. Provide privacy when changing patients incontinence device to maintain their dignity 6. Consider placing an indwelling catheter 7. Collaborate with interdisciplinary team and initiate plans and interventions as needed Outcome: Progressing Note: Evaluation of progress towards goal: Perineal skin excoriated and pink with barrier cream in place at present. Problem: Genitourinary - Adult Goal: Absence of urinary retention Description: INTERVENTIONS: 1. Assess patient s ability to void and empty bladder 2. Monitor intake/output and perform bladder scan as ordered 3. Place urinary catheter per LIP order if needed 4. Discuss with LIP medications to alleviate retention as needed 5. Discuss and document need for catheter daily 6. Prevention of urinary infection per policy Outcome: Progressing Note: Evaluation of progress towards goal: Indwelling catheter maintained, pending provider order and plan. Patient does CIC at baseline due to previous history. Catheter draining without obstruction Problem: Metabolic/Fluid and Electrolytes - Adult Goal: Hemodynamic stability and optimal renal function maintained Description: Patient's goal is: INTERVENTIONS 1. Monitor labs and assess for signs and symptoms of volume excess or deficit 2. Monitor intake, output and patient weight 3. Monitor urine specific gravity, serum osmolarity and serum sodium as indicated or ordered 4. Monitor response to interventions for patient's volume status, including labs, urine output, blood pressure (other measures as available) 5. Encourage oral intake as appropriate 6. Instruct patient on fluid and nutrition restrictions as appropriate Outcome: Progressing Note: Evaluation of progress towards goal: Patient fluid status and electrolytes monitored each shift and as needed according to assessment data and labs. Fluids administered as ordered. PO intake encouraged as tolerated. Electrolyte supplements administered as ordered. Intake and output recorded per policy and as needed. Daily weights obtained per orders and as needed. Problem: Skin/Tissue Integrity - Adult Goal: Incisions, wounds, or drain sites healing without S/S of infection Description: INTERVENTIONS 1. ADMISSION & EVERY SHIFT: Assess and document risk factors for pressure ulcer development utilizing the David/David Q scale 2. Assess and document skin integrity 3. Assess and document dressing/incision, wound bed, drain sites and surrounding tissue 4. Implement wound care per orders 5. Initiate isolation precautions as appropriate 6. Initiate high risk precautions Outcome: Progressing Note: Evaluation of progress towards goal: Surgical incision maintained. Foam dressing to heel tears and barrier film to coccx/ perineum Wound care pending consult and vascular plan. Dressing changes per policy or orders. [facility] 02-14-2025 Miscellaneous Notes Contract: [address] Lee for Admission Orders Secure chat was sent documented in this encounter [facility] 02-14-2025 Telephone encounter Note Contract: [address] Lee for Admission Orders [facility] 02-14-2025 Telephone encounter Note Secure chat was sent [facility] 01-30-2025 Telephone encounter Note [facility] called - update: that Agustin fell Sat , transferring for wheelchair to the bed . She said he is having trouble transferring . Pt in need of PT and Ot if not ordered already . Ty [facility] 01-30-2025 Miscellaneous Notes [facility] called - update: that Agustin fell Sat , transferring for wheelchair to the bed . She said he is having trouble transferring . Pt in need of PT and Ot if not ordered already . Ty documented in this encounter 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 I advised him that he gets admitted. He would like to go home and get his affairs in place and then go to the ER tomorrow. I discussed with him the risk benefits and alternatives of each option. 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 I advised him that he gets admitted. He would like to go home and get his affairs in place and then go to the ER tomorrow. I discussed with him the risk benefits and alternatives of each option. documented in this encounter [facility] 01-19-2025 History of Present illness Narrative Images from the original note were not included. To: KERRI BENZ, HPI: Kj Lei is a 79 y.o. male with with Bilateral lower extremity venous ulcers. He has normal ABIs. The right side he had multiple wounds and wound care and toe amputations by podiatry. He would like to proceed with amputation. We had a long discussion. He [...] since the wound has been there for years.. He was offered amputation but he was lost to follow up. He came today with bilateral critical limb ischemia with bilateral infection. Most of his disease small-vessel disease advanced infection and nonfunctional feet. I advised him to go to the ER for guillotine amputation followed by close higher level amputation probably BKA. Review of Systems: Review of Systems Constitutional: [...] mg total) and swallow in the morning. atorvastatin (LIPITOR) 20 mg [...] Diagnosis Date Anemia Chronic hypercapnic respiratory failure (CMS-HCC) COPD (chronic obstructive pulmonary disease) ([facility]-HCC) Depression Disease of lung HTN (hypertension) Obesity EMMA (obstructive sleep apnea) Paraplegia ([facility]) Past Surgical History: Past Surgical History: Procedure [...] Resource Strain: Patient Declined (01/01/2024) Received from [facility] Overall Financial Resource Strain (CARDIA) Difficulty of Paying Living Expenses: Patient declined Food Insecurity: No Food Insecurity (01/19/2025) Hunger Screening Food Insecurity - Worry: Never True Food Insecurity - Inability: Never True Transportation Needs: Patient Declined (01/01/2024) Received from [facility] PRAPARE - Transportation Lack of Transportation (Medical): Patient declined Lack of Transportation (Non-Medical): Patient declined Physical Activity: Patient Declined (01/01/2024) Received from [facility] Exercise Vital Sign Days of Exercise per Week: Patient declined Minutes of Exercise per Session: Patient declined Stress: Patient Declined (01/01/2024) Received from [facility] [place] of Occupational [facility] - Occupational Stress Questionnaire Feeling of Stress : Patient declined Social Connections: Unknown (01/01/2024) Received from [facility] Social Connection and Isolation Panel [NHANES] Frequency of Communication with Friends and Family: More than three times a week Frequency of Social Gatherings with Friends and Family: Patient declined Attends Jain Services: Not on file Active Member of Clubs or Organizations: Patient declined Attends Club or Organization Meetings: Patient declined Marital Status: Interpersonal Safety: Patient Declined (01/01/2024) Received from [facility] Humiliation, Afraid, Rape, and Kick questionnaire Fear of Current or Ex-Partner: Patient declined Emotionally Abused: Patient declined Physically Abused: Patient declined Sexually Abused: Patient declined Housing Instability: Unknown (01/01/2024) Received from [facility] Housing Stability Vital Sign Unable to Pay [...] the assessment and plan below. Vitals: BP (!) 172/100 (BP Site: Left Arm, BP Postition: Sitting, BP CUFF SIZE: M (9-13 inches)) Pulse 79 Temp 36 C (96.8 F) (Temporal) Resp 18 Ht 182.9 cm (6' 0.01 ) Wt 113.4 kg (250 lb) SpO2 91% BMI 33.90 kg/m Body mass index is 33.9 kg/m . Physical Exam: Physical Exam Constitutional: [...] General: Skin is warm and dry. Comments: Bilateral lower extremity infected wounds much worse in the right side Neurological: General: No focal deficit present. Mental [...] Continue wound care. Current Assessment & Plan I discussed with him that he needs guillotine amputation followed by formal amputation below the knee or above the knee. I advised him that he gets admitted. He would like to go home and get his affairs in place and then go to the ER tomorrow. I discussed with him the risk benefits and alternatives of each option. Agustin was seen today for discuss amp, critical limb ischemia of right lower extremity with gangre and venous stasis ulcer of left lower leg with edema of left lo. Diagnoses and all orders for this visit: Venous ulcer-leg syndrome, bilateral (CMS-HCC) Critical 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 ([facility]-HCC) Abraham Pimentel MD, SUSIE, RPVI, FSVS, FACS [facility] This note was created with the assistance of a speech recognition program. While intending to generate a timely document that accurately reflects the content of the visit, no guarantee can be provided that every grammatical or spelling mistake has been or will be identified or corrected. Thank you for your understanding. documented in this encounter [facility] 01-02-2025 Miscellaneous Notes Me and Agustin have been in contact these last 2 months regarding his bka with Dr Pimentel-pt has been unsure whether he wants to proceed. He is going to Wound Care on Thu and will call me after his appointment. documented in this encounter [facility] 01-02-2025 Telephone encounter Note Me and Agustin have been in contact these last 2 months regarding his bka with Dr Pimentel-pt has been unsure whether he wants to proceed. He is going to Wound Care on Thu and will call me after his appointment. [facility] 11-03-2024 Evaluation + Plan note Associated Problem(s): Critical 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 ([facility]-HCC) Right below-knee amputation. We had a long [...] the wound has been there for years. 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 We had a long [...] there for years. documented in this encounter [facility] 11-03-2024 History of Present illness Narrative Images from the original note were not included. To: KERRI BENZ, DO HPI: Kj Lei is a 79 y.o. male with Bilateral [...] Diagnosis Date Anemia Chronic hypercapnic respiratory failure ([facility]-HCC) COPD (chronic obstructive pulmonary disease) ([facility]) Depression Disease of lung HTN (hypertension) Obesity EMMA (obstructive sleep apnea) Paraplegia ([facility]) Past Surgical History: Past Surgical History: Procedure [...] Resource Strain: Patient Declined (01/01/2024) Received from [facility] Overall Financial Resource Strain (CARDIA) Difficulty of Paying Living Expenses: Patient declined Food Insecurity: No Food Insecurity (11/03/2024) Hunger Screening Food Insecurity - Worry: Never True Food Insecurity - Inability: Never True Transportation Needs: Patient Declined (01/01/2024) Received from [facility] PRAPARE - Transportation Lack of Transportation (Medical): Patient declined Lack of Transportation (Non-Medical): Patient declined Physical Activity: Patient Declined (01/01/2024) Received from [facility] Exercise Vital Sign Days of Exercise per Week: Patient declined Minutes of Exercise per Session: Patient declined Stress: Patient Declined (01/01/2024) Received from [facility] [place] of Occupational Health - Occupational Stress Questionnaire Feeling of Stress : Patient declined Social Connections: Unknown (01/01/2024) Received from [facility] Social Connection and Isolation Panel [NHANES] Frequency of Communication with Friends and Family: More than three times a week Frequency of Social Gatherings with Friends and Family: Patient declined Attends Jain Services: Not on file Active Member of Clubs or Organizations: Patient declined Attends Club or Organization Meetings: Patient declined Marital Status: Interpersonal Safety: Patient Declined (01/01/2024) Received from [facility] Humiliation, Afraid, Rape, and Kick questionnaire Fear of Current or Ex-Partner: Patient declined Emotionally Abused: Patient declined Physically Abused: Patient declined Sexually Abused: Patient declined Housing Instability: Unknown (01/01/2024) Received from [facility] Housing Stability Vital Sign Unable to Pay [...] ischemia of right lower extremity with gangrene ([facility]-HCC) - Primary Overview PVR, I ordered, will be done at the 7th, will see him after and decide further plans. Continue wound care. Agustin was seen today for non-healing wound from wound care. 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 While intending to generate a timely document that accurately reflects the content of the visit, no guarantee can be provided that every grammatical or spelling mistake has been or will be identified or corrected. Thank you for your understanding. documented in this encounter [facility] 08-29-2024 History of Present illness Narrative Images from the original note were not included. Kj Lei is a 79 y.o. male presents with [...] - Flu vaccine, high dose seasonal, PF (GPJ035) (Fluzone High Dose) - COVID-19, MRNA, LNP-S, PF, ARIANA-SUCROSE, 30MCG/0.3ML CVX 309 [CPE460], Comirnaty Venous ulcer-leg syndrome, bilateral (CMS/HCC) -Followed by vascular and wound care documented in this encounter [facility] 04-07-2024 History of Present illness Narrative Images from the original note were not included. To: KERRI BENZ, DO HPI: Kj Lei is a 78 y.o. male with Bilateral lower extremity venous ulcers and right toe ulcers that are nonhealing. He is status post injection sclerotherapy. He has been up with any follow-up with our wound clinic here at [place]. He is doing well. His PVR is [...] Diagnosis Date Anemia Chronic hypercapnic respiratory failure ([facility]) COPD (chronic obstructive pulmonary disease) ([facility] [...] Resource Strain: Patient Declined (01/01/2024) Received from [facility], [facility] Overall Financial Resource Strain (CARDIA) Difficulty of Paying Living Expenses: Patient declined Food Insecurity: No Food Insecurity (03/24/2024) Hunger Screening Food Insecurity - Worry: Never True Food Insecurity - Inability: Never True Transportation Needs: Patient Declined (01/01/2024) Received from [facility] PRAPARE - Transportation Lack of Transportation (Medical): Patient declined Lack of Transportation (Non-Medical): Patient declined Physical Activity: Patient Declined (01/01/2024) Received from [facility] Exercise Vital Sign Days of Exercise per Week: Patient declined Minutes of Exercise per Session: Patient declined Stress: Patient Declined (01/01/2024) Received from [facility] [place] [facility] - Occupational Stress Questionnaire Feeling of Stress : Patient declined Social Connections: Unknown (01/01/2024) Received from [facility] Social Connection and Isolation Panel [NHANES] Frequency of Communication with Friends and Family: More than three times a week Frequency of Social Gatherings with Friends and Family: Patient declined Attends Jain Services: Not on file Active Member of Clubs or Organizations: Patient declined Attends Club or Organization Meetings: Patient declined Marital Status: Interpersonal Safety: Patient Declined (01/01/2024) Received from [facility] Humiliation, Afraid, Rape, and Kick questionnaire Fear of Current or Ex-Partner: Patient declined Emotionally Abused: Patient declined Physically Abused: Patient declined Sexually Abused: Patient declined Housing Instability: Unknown (01/01/2024) Received from [facility] Housing Stability Vital Sign Unable to Pay for Housing in the Last Year: Patient refused Number of Places Lived in the Last Year: Not on file In the last 12 months, was there a time when you did not have a steady place to sleep or slept in a usp (including now)?: Patient refused Family History Problem [...] Abraham Pimentel MD, SUSIE, RPVI, FSVS, FACS [facility] This note was created with the assistance of a speech recognition program. While intending to generate a timely document that accurately reflects the content of the visit, no guarantee can be provided that every grammatical or spelling mistake has been or will be identified or corrected. Thank you for your understanding. 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 He has normal PVR waveforms. He has abnormal digital waveforms. Discussed with him that this is a sign of small vessel disease for which best medical therapy and hyperbaric therapy are the best option. 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 He has normal PVR waveforms. He has abnormal digital waveforms. Discussed with him that this is a sign of small vessel disease for which best medical therapy and hyperbaric therapy are the best option. documented in this encounter [facility] 03-24-2024 Evaluation + Plan note Associated Problem(s): Venous ulcer-leg syndrome, bilateral (CMS-HCC) He is status post injection sclerotherapy. Continue Unna boot and wound care. We will get PVR as well to make sure he has enough arterial below to heal this wound and the right great toe wound as well. [facility] 03-24-2024 Miscellaneous Notes Associated Problem(s): Venous ulcer-leg [...] Continue wound care. documented in this encounter [facility] 03-24-2024 Evaluation + Plan note Associated Problem(s): Critical 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 ([facility]-HCC) PVR, I ordered, will be done at the 7th, will see him after and decide further plans. Continue wound care. [facility] 03-24-2024 History of Present illness Narrative Images from the original note were not included. To: KERRI BENZ, DO HPI: Kj Lei is a 78 y.o. male with Bilateral lower extremity venous ulcers and right toe ulcers that are nonhealing. He is status post injection sclerotherapy. He has been up with any follow-up with our wound clinic here at [place]. He is doing well. He has pending [...] Diagnosis Date Anemia Chronic hypercapnic respiratory failure ([facility]-HCC) COPD (chronic obstructive pulmonary disease) ([facility] [...] Resource Strain: Patient Declined (01/01/2024) Received from [facility] Overall Financial Resource Strain (CARDIA) Difficulty of Paying Living Expenses: Patient declined Food Insecurity: No Food Insecurity (03/24/2024) Hunger Screening Food Insecurity - Worry: Never True Food Insecurity - Inability: Never True Transportation Needs: Patient Declined (01/01/2024) Received from [facility] PRAPARE - Transportation Lack of Transportation (Medical): Patient declined Lack of Transportation (Non-Medical): Patient declined Physical Activity: Patient Declined (01/01/2024) Received from [facility] Exercise Vital Sign Days of Exercise per Week: Patient declined Minutes of Exercise per Session: Patient declined Stress: Patient Declined (01/01/2024) Received from [facility] [place] of Occupational Health - Occupational Stress Questionnaire Feeling of Stress : Patient declined Social Connections: Unknown (01/01/2024) Received from [facility] [employer], [facility] Social Connection and Isolation Panel [NHANES] Frequency of Communication with Friends and Family: More than three times a week Frequency of Social Gatherings with Friends and Family: Patient declined Attends Jain Services: Not on file Active Member of Clubs or Organizations: Patient declined Attends Club or Organization Meetings: Patient declined Marital Status: Interpersonal Safety: Patient Declined (01/01/2024) Received from [employer] [facility] Humiliation, Afraid, Rape, and Kick questionnaire Fear of Current or Ex-Partner: Patient declined Emotionally Abused: Patient declined Physically Abused: Patient declined Sexually Abused: Patient declined Housing Instability: Unknown (01/01/2024) Received from [employer], [facility] Housing Stability Vital Sign Unable to Pay for Housing in the Last Year: Patient refused Number of Places Lived in the Last Year: Not on file In the last 12 months, was there a time when you did not have a steady place to sleep or slept in a usp (including now)?: Patient refused Family History Problem [...] Abraham Pimentel MD, SUSIE, RPVI, FSVS, FACS [facility] This note was created with the assistance of a speech recognition program. While intending to generate a timely document that accurately reflects the content of the visit, no guarantee can be provided that every grammatical or spelling mistake has been or will be identified or corrected. Thank you for your understanding. documented in this encounter [facility] 02-25-2024 Evaluation + Plan note Associated Problem(s): Venous ulcer-leg syndrome, bilateral (CMS-HCC) Venous reflux ultrasound Bilateral lower extremity ultrasound-guided injection sclerotherapy [facility] 02-25-2024 Miscellaneous Notes Associated Problem(s): Venous ulcer-leg syndrome, bilateral (CMS-HCC) Venous reflux ultrasound Bilateral lower extremity ultrasound-guided injection sclerotherapy documented in this encounter [facility] 02-25-2024 History of Present illness Narrative Images from the original note were not included. [facility] [address] [facility] [id number] Subjective: Patient ID: Kj Lei is a 78 y.o. male. Chief Complaint [...] Diagnosis Date Anemia Chronic hypercapnic respiratory failure ([facility]-HCC) COPD (chronic obstructive pulmonary disease) ([facility] [...] [facility] Vascular Surgery documented in this encounter [facility] 02-04-2024 Miscellaneous Notes Received a new patient referral from patient wound care doctor. Called a left a voicemail for the patient to call back to schedule new patient appointment with Dr. Pimentel in [facility] documented in this encounter [facility] 02-04-2024 Telephone encounter Note Received a new patient referral from patient wound care doctor. Called a left a voicemail for the patient to call back to schedule new patient appointment with Dr. Pimentel in [facility] [employer] 01-21-2024 Miscellaneous Notes Received copy of denial letter from [employer]. Emailed to Ines at [facility] to clarify as office visit was complete and pt is compliant- unsure if denial is due to elevated AHI? [facility] Tele[facility] encounter Note Received copy of denial letter from [employer]. Emailed to Ines smith [facility] to clarify as office visit was complete and pt is compliant- unsure if denial is due to elevated AHI? [employer] 01-06-2024 History of Present illness Narrative Kj Lei is a 78 y.o. male presents with chief complaint of Establish Care, Cellulitis, and Follow-up HPI: Patient is here to establish care and to follow-up on cellulitis. He went to wound care yesterday, they gave citalopram. He states he goes to [facility] to check legs [...] by wound center documented in this encounter [facility] 01-01-2024 Telephone encounter Note Ana from [facility] has concerns with pt stating that he seems more tired and his edema is more than normal. She would like to have labs ordered. Please call [phone] with orders. [facility] 01-01-2024 Miscellaneous Notes Ana kasper [facility] has concerns with pt stating that he seems more tired and his edema is more than normal. She would like to have labs ordered. Please call [phone] with orders. documented in this encounter 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 Iron deficiency anemia secondary to inadequate dietary iron intake 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) Encounter for immunization Venous ulcer-leg syndrome, bilateral (CMS/HCC) documented in this encounter [facility]* Diagnosis Dependence on wheelchair- [...] not elsewhere classified 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) Primary hypertension [...] Unspecified essential hypertension documented in this encounter [facility]* Diagnosis 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 [...] not elsewhere classified 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) Primary hypertension [...] pharynx Hypokalemia Hypopotassemia documented in this encounter [facility]* Diagnosis Dependence on wheelchair- [...] not elsewhere classified 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) Primary hypertension [...] whether esophagitis present documented in this encounter [facility]* Diagnosis 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 [...] not elsewhere classified 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) Primary hypertension [...] dietary iron intake documented in this encounter [facility]* Diagnosis PAD (peripheral artery disease) ([facility]-HCC)- Primary Unspecified peripheral vascular disease [facility] Diagnosis Venous ulcer-leg syndrome, bilateral (CMS-HCC)- Primary Critical 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 (CMS-HCC) [facility] Diagnosis Critical 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 ([facility]-HCC)- Primary [facility]* Diagnosis EMMA (obstructive sleep apnea)- Primary Obstructive sleep apnea (adult) (pediatric) [facility]* Diagnosis Venous ulcer-leg syndrome, bilateral ([facility]-HCC)- Primary 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 complications [facility] Diagnosis Varicose veins of both lower extremities with pain- Primary documented in this encounter [facility]* Diagnosis Venous [...] gangrene (CMS-HCC)- Primary documented in this encounter [facility]* Diagnosis Venous [...] right lower extremity with gangrene (CMS-HCC)- Primary Venous ulcer-leg syndrome, bilateral (CMS-HCC)- Primary Critical 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 (CMS-HCC) documented in this encounter [facility]* Diagnosis Venous [...] right lower extremity with gangrene (CMS-HCC)- Primary Venous ulcer-leg syndrome, bilateral (CMS-HCC)- Primary Critical 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 (CMS-HCC) Sepsis (CMS-HCC)- Primary Surgical wound present 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 (CMS-HCC) Venous stasis ulcer of left lower extremity (CMS-HCC) 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 species 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) Chronic respiratory failure with hypoxia and hypercapnia (CMS-HCC) Essential hypertension Unspecified essential hypertension EMMA treated with BiPAP Paraplegia (CMS-HCC) Paraplegia 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) Venous stasis ulcer of left lower extremity (CMS-HCC) 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 (CMS-HCC) Surgical wound present documented in this encounter [facility]* Diagnosis Venous [...] right lower extremity with gangrene (CMS-HCC)- Primary Venous ulcer-leg syndrome, bilateral (CMS-HCC)- Primary Critical 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 (CMS-HCC) Venous ulcer-leg syndrome, bilateral (CMS-HCC)- Primary PAD (peripheral artery disease) Unspecified peripheral vascular disease documented in this encounter [facility]* Diagnosis 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 Encounter [...] not elsewhere classified 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) Primary hypertension [...] of lip, oral cavity, and pharynx Iron deficiency- Primary Disorders of iron metabolism [...] peripheral vascular disease documented in this encounter [facility]* Diagnosis 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 [...] not elsewhere classified 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) Primary hypertension [...] pharynx Hypokalemia Hypopotassemia [facility]* Abraham Pimentel MD - 03/02/2025 11:10 AM EDT Surgery progress note He is status post BKA. Healed nicely. No issues. Postoperatively had UTI required treatment. But otherwise he is doing well. Continue to follow-up with his PCP and wound care. 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 Abraham Pimentel MD [facility] documented in this [facility] on file documented in this [facility]ructionsNot on file documented in this [facility]ructionsNot on file documented in this [facility] SystemInstructionsNot on file documented in this encounter[facility] SystemInstructionsNot on file documented in this encounter[facility] System[facility]ructionsNot on file documented in this encounterPro[facility] SystemInstructionsNot on file documented in this encounterPro[facility] SystemInstructionsNot on file documented in this encounterPro[facility] SystemInstructionsNot on file documented in this encounterPro[facility] SystemInstructionsNot on file documented in this encounterProMedica Health SystemReason for visit Narrative* Auth/Cert Specialty Diagnoses / Procedures Referred By Corin ayala Referred To Contact Diagnoses Sepsis [facility] [address] [place] [phone] Referral ID Status Reason Start Date Expiration Date Visits Re quested Visits Authorized [id number] 1 1 [facility] Summary Purpose Family History No Family History Records FoundNo Family History Records FoundNo Family History Records FoundNo Family History Records FoundNo Family History Records FoundNo Family History Records Found Advance Directives Documents on File Type Date Recorded Patient Toys Inspector Expl anation Advance Directives and Living Will 09/15/2018 2001-05-13 Living Wi ll Advance Directives and Living Will 09/15/2018 2001-05-13 Healthcar e POA Date Activated Date Inactivated Comments 12/05/2020 7:21 PM 12/11/2020 6:03 PM Date Activated Date Inactivated Comments 12/05/2020 7:21 PM 12/11/2020 6:03 PM Latest Code Status on File Code Status Date Activated Date Inactivated Comments DNR Comfort Care Arrest (DNR-CCA) [place] 12/05/2020 7:21 P M 12/11/2020 6:03 PM Latest Code Status on File Code Status Date Activated Date Inactivated Comments DNR Comfort Care Arrest (DNR-CCA) [place] 12/05/2020 7:21 P M 12/11/2020 6:03 PM Documents on File Type Date Recorded Patient Toys Inspector Expl anation Advance Directive 02/11/2025 6:21 PM Advan ce Directive 02-11-25 Date Activated Date Inactivated Comments 02/14/2025 5:32 PM Date Activated Date Inactivated Comments 02/12/2025 11:49 PM 02/14/2025 5:25 PM Date Activated Date Inactivated Comments 01/31/2025 10:22 AM 02/01/2025 1:58 PM Date Activated Date Inactivated Comments 01/30/2025 2:10 PM 01/31/2025 10:21 AM Date Activated Date Inactivated Comments 12/05/2020 7:21 PM 12/11/2020 6:03 PM Documents on File Type Date Recorded Patient Toys Inspector Expl anation Advance Directive 02/11/2025 6:21 PM Advan ce Directive 02-11-25 Date Activated Date Inactivated Comments 02/15/2025 8:38 AM Date Activated Date Inactivated Comments 02/14/2025 5:32 PM 02/15/2025 8:38 AM Date Activated Date Inactivated Comments 02/12/2025 11:49 PM 02/14/2025 5:25 PM Date Activated Date Inactivated Comments 01/31/2025 10:22 AM 02/01/2025 1:58 PM Date Activated Date Inactivated Comments 01/30/2025 2:10 PM 01/31/2025 10:21 AM Documents on File Type Date Recorded Patient Toys Inspector Expl anation Durable Power of [employer] 02/23/2025 11:02 AM Living Will 02/22/2025 2:16 PM Advance Directive 02/11/2025 6:21 PM Advan ce Directive 02-11-25 Date Activated Date Inactivated Comments 02/15/2025 8:38 AM 02/18/2025 11:03 AM Date Activated Date Inactivated Comments 02/14/2025 5:32 PM 02/15/2025 8:38 AM Date Activated Date Inactivated Comments 02/12/2025 11:49 PM 02/14/2025 5:25 PM Date Activated Date Inactivated Comments 01/31/2025 10:22 AM 02/01/2025 1:58 PM Date Activated Date Inactivated Comments 01/30/2025 2:10 PM 01/31/2025 10:21 AM Reason for Referral Specialty Diagnoses / Procedures Referred By Contac t Referred To Contact Diagnoses PAD (peripheral artery disease) ([facility]) Procedures Vas art doppler lwr bilat mult lev/PVR Abraham Pimentel MD [address], [address] [address] Phone: Referral ID Status Reason Start Date Expiration Date V isits Requested Visits Authorized [id number] Pending Review 03/17/2024 03/17/2025 1 1 Specialty Diagnoses / Procedures Referred By Contac t Referred To Contact Diagnoses Venous ulcer-leg syndrome, bilateral (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 lwr Abraham Trujillo MD [address], [address] [address] Phone: Referral ID Status Reason Start Date Expiration Date V isits Requested Visits Authorized [id number] Pending Review 02/25/2024 02/24/2025 1 1 Specialty Diagnoses / Procedures Referred By Contac t Referred To Contact Diagnoses Varicose veins of both lower extremities with pain Procedures Vas venous duplex insufficiency lwr Abraham Trujillo MD [address], [address] [address] Referral ID Status Reason Start Date Expiration Date V isits Requested Visits Authorized [id number] Pending Review 03/10/2024 03/10/2025 1 1 Additional Source Comments (unrecognized sect ion and content) No Status Records FoundNo Status Records FoundNo Status Records FoundNo Status Records FoundNo Status Records FoundNo Status Records Found INFORMATION SOURCE (unrecogn ized section and content) DATE CREATED AUTHOR 04/08/2023 [facility] DATE CREATED AUTHOR AUTHOR'S ORGANIZ ATION 02/18/2025 [facility] DATE CREATED AUTHOR AUTHOR'S ORGANIZ ATION 03/05/2025 [facility] DATE CREATED AUTHOR AUTHOR'S ORGANIZ ATION 03/08/2025 [facility] DATE CREATED AUTHOR AUTHOR'S ORGANIZ ATION 03/28/2025 [facility] EPIC DATE CREATED AUTHOR AUTHOR'S ORGANIZ ATION 04/04/2025 [facility] Care Teams (unrecognized sec tion and content) Core Shaper Sides Relationship Specialty Start Date End Date Ines Childs MD [address] [facility] [place] [address] PCP - General Family Medicine 12/17/23 Suzi Moyer NP [address] [facility] [place] [id number] Nurse Practitioner Family Medicine 12/17/23 Core Shaper Sides Relationship Specialty Start Date End Date Ines Childs MD [address] [facility] [place] [address] PCP - General Family Medicine 12/17/23 Suzi Moyer NP [address] [facility] [place] [address] Nurse Practitioner Family Medicine 12/17/23 Core Shaper Sides Relationship Specialty Start Date End Date Ines Childs MD [address] [place] [address] PCP - General Family Medicine 12/17/23 Suzi Moyer NP [address] [place] [address] Nurse Practitioner Family Medicine 12/17/23 Core Shaper Sides Relationship Specialty Start Date End Date Ines Childs MD [address] [place] [address] PCP - General Family Medicine 12/17/23 Suzi Moyer NP [address] [place] [address] Nurse Practitioner Family Medicine 12/17/23 Core Shaper Sides Relationship Specialty Start Date End Date Ines Childs MD [address] [place] [address] PCP - General Family Medicine 12/17/23 Suzi Moyer NP [address] [place] [address] Nurse Practitioner Family Medicine 12/17/23 Core Shaper Sides Relationship Specialty Start Date End Date Ines Childs MD [address] [place] [address] PCP - General Family Medicine 12/17/23 Suzi Moyer NP [address] [place] [address] Nurse Practitioner Family Medicine 12/17/23 Core Shaper Sides Relationship Specialty Start Date End Date Ines Childs MD [address] [place] [address] PCP - General Family Medicine 12/17/23 Suzi Moyer NP [address] [place] [address] Nurse Practitioner Family Medicine 12/17/23 Core Shaper Sides Relationship Specialty Start Date End Date Kerri Benz DO [address] [place] [address] PCP - General Family Medicine 11/29/21 Core Shaper Sides Relationship Specialty Start Date End Date Kerri Benz DO [address] [place] [address] PCP - General Family Medicine 11/29/21 Core Shaper Sides Relationship Specialty Start Date End Date Kerri Benz DO [address] [place] [address] PCP - General Family Medicine 11/29/21 Core Shaper Sides Relationship Specialty Start Date End Date Kerri Benz DO [address] [place] [address] PCP - General Family Medicine 11/29/21 Core Shaper Sides Relationship Specialty Start Date End Date Kerri Benz DO [address] [place] [address] PCP - General Family Medicine 11/29/21 Core Shaper Sides Relationship Specialty Start Date End Date Kerri Benz TaDO [address] [place] [address] PCP - General Family Medicine 11/29/21 Core Shaper Sides Relationship Specialty Start Date End Date Kerri Benz DO [address] [place] [address] PCP - General Family Medicine 11/29/21 Core Shaper Sides Relationship Specialty Start Date End Date Kerri Benz DO [address] [place] [address] PCP - General Family Medicine 11/29/21 Core Shaper Sides Relationship Specialty Start Date End Date Kerri Benz DO [address] [place] [address] PCP - General Family Medicine 11/29/21 Core Shaper Sides Relationship Specialty Start Date End Date Kerri Benz DO [address] [place] [address] PCP - General Family Medicine 11/29/21 Core Shaper Sides Relationship Specialty Start Date End Date Ines Childs MD [address] [place] [address] PCP - General Family Medicine 12/17/23 Suzi Moyer NP [address] [place] [address] Nurse Practitioner Family Medicine 12/17/23 Core Shaper Sides Relationship Specialty Start Date End Date Ines Childs MD [address] [place] [address] PCP - General Family Medicine 12/17/23 Suzi Moyer NP [address] [place] [address] Nurse Practitioner Family Medicine 12/17/23 Core Shaper Sides Relationship Specialty Start Date End Date Hudson Rios MD [address], [address] [place] [address] PCP - General Internal Medicine 02/11/25 Core Shaper Sides Relationship Specialty Start Date End Date Hudson Rios MD [address], [address] [place] [address] PCP - General Internal Medicine 02/11/25 Core Shaper Sides Relationship Specialty Start Date End Date Hudson Rios MD [address], [address] [place] [address] PCP - General Internal Medicine 02/11/25 Core Shaper Sides Relationship Specialty Start Date End Date Ines Childs MD [address] [place] [address] PCP - General Family Medicine 12/17/23 Suzi Moyer NP [address] [place] [address] Nurse Practitioner Family Medicine 12/17/23 Core Shaper Sides Relationship Specialty Start Date End Date Ines Childs MD [address] [place] [address] PCP - General Family Medicine 12/17/23 Suzi Moyer NP [address] [place] [address] Nurse Practitioner Family Medicine 12/17/23 Core Shaper Sides Relationship Specialty Start Date End Date Ines Childs MD [address] [place] [address] PCP - General Family Medicine 12/17/23 Suzi Moyer NP [address] [facility] [place] [address] Nurse Practitioner Family Medicine 12/17/23 Core Shaper Sides Relationship Specialty Start Date End Date Ines Childs MD [address] [facility] [place] [address] PCP - General Family Medicine 12/17/23 Suzi Moyer NP [address] [facility] [place] [address] Nurse Practitioner Family Medicine 12/17/23 Reason for Visit (unrecogniz ed section and content) Reason Comments Establish Care Cellulitis Follow-up Reason Comments Hypertension Reason Comments Med Refill Reason Onset Date Comments Med Refill 11/18/2024 Reason Onset Date Comments Med Refill 11/22/2024 Reason Comments Post-op Reason Comments Wound Check Reason Comments non-healing wound from wound care Reason Comments discuss amp Critical limb ischemia of right lower ex tremity with gangre Venous stasis ulcer of left lower leg wi th edema of left lo Wanting left BKA Reason Onset Date Comments ADMISSION ORDERS NEED 02/14/2025 Reason Comments RLE Amp Reason Comments Follow-up Scheduled Active and Recently Administ ered Medications (unrecognized section and content) Medication Order 02/16/2025 02/17/2025 02/18/2025 aspirin chewable tablet 81 mg 81 mg, oral, Daily, First dose on Yomaira 02/16/25 at 1830 1839 (Given - Provider: Sofiya Varela, MITCH) 0952 (Given - Provider: Brianna Olivarez RN) 0900 (Due) atorvastatin (LIPITOR) tablet 20 mg 20 mg, oral, Nightly, First dose on Thu02/15/25 at 2200, Look-alike/sound-alike medication - verify indication for use. 2102 (Given - Provider: Yvonne Decker RN) 230 (Given - Provider: Edilia Dc RN) 2200 (Due) carvediloL (COREG) tablet 6.25 mg 6.25 mg, oral, 2 times daily, First dose on Thu02/15/25 at 0915, Give with meal or snack. Look-alike/sound-alike medication - verify indication for use. 814 (Given - Provider: Sofiya Varela RN)2102 (Given - Provider: Yvonne Decker RN) 951 (Given - Provider: Brianna Olivarez RN)2211 (Given - Provider: Edilia Dc RN) 899 (Due)2099 (Due) cefTRIAXone (ROCEPHIN) IVPB 2000 mg/50 mL in iso-osmotic dextrose (40 mg/mL premix) 2,000 mg, intravenous, at 100 mL/hr, Administer over 30 Minutes, Every 24 hours, First dose (after last modification) on Thu02/14/25 at 1800, Look-alike/sound-alike medication - verify indication for use. Do not co-administer with calcium-containing solutions such as Lactated Ringers., Indication: Bacteremia 2112 (New Bag - Provider: Yvonne Decker RN)2142 (Stop Bag - Provider: Yvonne Decker RN) 2226 (New Bag - Provider: Edilia Dc RN)2256 (Stop Bag - Provider: Edilia Dc RN) 2100 (Due - Provider: Alberto Armando [facility]) citalopram (CeleXA) tablet 40 mg 40 mg, oral, Daily, First dose (after last modification) on Thu02/15/25 at 0900, Look-alike/sound-alike medication - verify indication for use. 814 (Given - Provider: Sofiya Varela RN) 951 (Given - Provider: Brianna Olivarez RN) 899 (Due) enoxaparin (LOVENOX) syringe 40 mg 40 mg, subcutaneous, Daily, First dose (after last modification) on Thu02/15/25 at 0600, Hold for platelet less than 100 Look-alike/sound-alike medication - verify indication for use. 06 (Not Given - Provider: Sofiya Varela RN - Reason: Order parameters not met - Comment: platelets 92) 06 (Not Given - Provider: Yvonne Decker RN - Reason: Order parameters not met) 0619 (Given - Provider: Edilia Dc, RN) ferrous sulfate tablet 325 mg 325 mg, oral, Daily with breakfast, First dose (after last modification) on Thu02/15/25 at 0800, Give ferrous sulfate 2 hours before or 4 hours after antacids. 0815 (Given - Provider: Sofiya Varela RN) 0952 (Given - Provider: Brianna Olivarez, RN) 0800 (Due) iron sucrose (VENOFER) 100 mg in sodium chloride 0.9 % 50 mL IVPB (COMPLETED) 100 mg, intravenous, at 220 mL/hr, Administer over 15 Minutes, Daily, First dose on Yomaira 02/16/25 at 1100, For 2 doses, Monitor patient for hypersensitivity reactions for at least 30 minutes after the infusion. AVOID the use of H1 antihistamines, such as diphenhydramine, as this may worsen hypersensitivity reactions. Have resuscitation equipment and medications available. 1250 (New Bag - Provider: Sofiya Varela RN)1305 (Stop Bag - Provider: Sofiya Varela RN) 0900 (New Bag - Provider: Brianna Olivarez, MITCH)0915 (Stop Bag - Provider: Brianna Olivarez, RN) sodium chloride 0.9 % flush 3 mL 3 mL, intravenous, Every 12 hours scheduled, First dose (after last modification) on Thu02/14/25 at 2100 0815 (Given - Provider: Sofiya Varela, MITCH)2108 (Given - Provider: Yvonne Decker, MITCH) 1037 (Given - Provider: Brianna Olivarez, RN)2228 (Given - Provider: Edilia Dc, RN) 09 (Due)2100 (Due) tamsulosin (FLOMAX) 24 hr capsule 0.4 mg 0.4 mg, oral, Nightly, First dose (after last modification) on Thu02/14/25 at 2200, Do not crush or chew. 2102 (Given - Provider: Yvonne Decker, MITCH) 2211 (Given - Provider: Edilia Dc, RN) 2199 (Due) PRN Medication Order 02/16/2025 02/17/2025 02/18/2025 acetaminophen (TYLENOL) suppository 650 mg 650 mg, rectal, Every 4 hours PRN, fever greater than 38.5 C, Starting on Thu02/14/25 at 1732 acetaminophen (TYLENOL) tablet 650 mg 650 mg, oral, Every 4 hours PRN, mild pain - pain scale 1-3, headaches, Starting on Thu02/14/25 at 2016 1245 (Given - Provider: Sofiya Varela, RN)2107 (Given - Provider: Yvonne Decker, RN) 2212 (Given - Provider: Edilia Dc RN) albuterol (PROVENTIL,VENTOLIN) nebulizer solution 2.5 mg 2.5 mg, nebulization, Every 6 hours PRN, wheezing, shortness of breath, Starting on Thu02/14/25 at 1745, Implement INPATIENT/ED Bronchodilator Clinical Practice Guidelines? Yes dextrose (GLUTOSE) 40 % gel 15 g 15 g, oral, As needed, low blood sugar, blood glucose less than 70 mg/dL, Starting on Thu02/14/25 at 1732, If patient conscious and taking PO. If blood glucose is not greater than 70 mg/dL after initial treatment, repeat treatment. dextrose 5 % (D5W) infusion 100 mL/hr, intravenous, Continuous PRN, blood glucose less than 70 mg/dL, Starting on Thu02/14/25 at 1732, Use immediately following dextrose 50% or glucagon treatment for patients who are unconscious or NPO. Contact prescriber for additional orders. If blood glucose is not greater than 70 mg/dL after initial treatment, repeat treatment. dextrose 50 % in water (D50W) 50% solution 25 mL 25 mL, intravenous, As needed, low blood sugar, blood glucose less than 70 mg/dL and unconscious or NPO with IV access, Starting on Thu02/14/25 at 1732, Push over 1-3 minutes STAT. If conscious and not NPO, immediately follow with meal tray or high protein (7 grams) snack if tray not available. If NPO, initiate 5% dextrose in water at 100 mL/hr and contact prescriber for additional orders. If blood glucose is not greater than 70 mg/dL after initial treatment, repeat treatment. VESICANT (RED) Warning: HYPERTONIC solution. glucagon HCL injection 1 mg 1 mg, intramuscular, As needed, low blood sugar, blood glucose less than 70 mg/dL and unconscious or NPO without IV access., Starting on Thu02/14/25 at 1732, If conscious and not NPO, immediately follow with meal tray or high protein (7Grams) snack if tray not available. If NPO, initiate IV 5% Dextrose/Water at 100 mL/hr and contact prescriber for additional orders. If blood glucose is not greater than 70 mg/dL after initial treatment, repeat treatment. iohexoL (OMNIPAQUE) 300 mg iodine/mL 100 mL (COMPLETED) 100 mL, intravenous, Once in imaging, contrast, Starting on Yomaira 02/16/25 at 1123, For 1 dose, VESICANT (RED) 1124 (Given - Provider: Yesy Castellon) magnesium sulfate IVPB 2000 mg/50 mL in iso-osmotic water (40 mg/mL premix) 2,000 mg, intravenous, at 25 mL/hr, Administer over 120 Minutes, As needed, Magnesium level 1.7 to 1.9 mg/dL, or Ionized Magnesium level 0.45 to 0.5 mmol/L., Starting on Thu02/14/25 at 1732, Recheck magnesium level 4 hours after infusion complete. With each magnesium result continue the replacement orders as needed. magnesium sulfate IVPB 4000 mg/100 mL in iso-osmotic water (40 mg/mL premix) 4,000 mg, intravenous, at 25 mL/hr, Administer over 240 Minutes, As needed, Magnesium level 1.6 mg/dL or less, or Ionized Magnesium level 0.44 mmol/L or less, Starting on Thu02/14/25 at 1732, Recheck magnesium level 4 hours after infusion complete. With each magnesium result continue the replacement orders as needed. ondansetron (PF) (ZOFRAN) injection 4 mg 4 mg, intravenous, Every 8 hours PRN, nausea, vomiting, Starting on Thu02/14/25 at 1732, Administer over 2-5 minutes. potassium chloride (K-TAB,KLOR-CON) CR tablet 30-40 mEq(Linked Group 1) 30-40 mEq, oral, As needed, Potassium Supplementation, Starting on Thu02/14/25 at 1732, Progress to oral potassium replacement when patient tolerating oral intake. If dose administered, recheck potassium level 4 hours after last dose. For potassium level 3.4 to 3.8 mmol/L and GFR 30 mL/min or greater=30 mEq. For potassium level 3.1 to 3.3 mmol/L and GFR 30 mL/min or greater=40 mEq. For potassium level 3 mmol/L or less and GFR 30 mL/min or greater=50 mEq. Do not crush or chew. 1245 (Given - Provider: Sofiya Varela, RN) potassium chloride (KAYCIEL) 20 mEq/15 mL solution 30-40 mEq(Linked Group 1) 30-40 mEq, oral, As needed, Potassium Supplementation, Starting on Thu02/14/25 at 1732, Progress to oral potassium replacement when patient tolerating oral intake. If dose administered, recheck potassium level 4 hours after last dose. For potassium level 3.4 to 3.8 mmol/L and GFR 30 mL/min or greater=30 mEq. For potassium level 3.1 to 3.3 mmol/L and GFR 30 mL/min or greater=40 mEq. For potassium level 3 mmol/L or less and GFR 30 mL/min or greater=50 mEq. Must dilute before use - Mix in 3-8 ounces of water or juice before administration When administering in feeding tube, flush before and after per policy and monitor potassium levels 1245 (See Alternative - Provider: Sofiya Varela, MITCH) potassium chloride IVPB 10 mEq/100 mL in water (0.1 mEq/mL premix)(Linked Group 1) 10 mEq, intravenous, at 100 mL/hr, Administer over 60 Minutes, As needed, POTASSIUM REPLACEMENT, Starting on Thu02/14/25 at 1732, IV if unable to use oral/enteral with the current dosing strategies Potassium level 3 mmol/L or less administer Potassium Chloride 50 mEq Potassium level 3.1 to 3.3 mmol/L administer Potassium Chloride 40 mEq Potassium level 3.4 to 3.8 mmol/L administer Potassium Chloride 30 mEq Use central line when applicable. Recheck potassium level 1 hour after total IVPB infusion complete, With each potassium result continue the replacement orders as needed VESICANT (YELLOW) Infuse each 10 mEq over a minimum of 1 hour. 1245 (See Alternative - Provider: Sofiya Varela, RN) sennosides-docusate sodium (SENOKOT-S) 8.6-50 mg 1 tablet 1 tablet, oral, Every 12 hours PRN, constipation, Starting on Thu02/14/25 at 1732 sodium chloride 0.9 % flush 10 mL 10 mL, intravenous, As needed, line care, Starting on Yomaira 02/16/25 at 1123 1124 (Given - Provider: Yesy Castellon) sodium chloride 0.9 % flush 3 mL 3 mL, intravenous, As needed, line care, before and after each intermittent use, Starting on 02/14/25 at 1732 sodium chloride 0.9 % flush bag 25 mL, intravenous, at 100 mL/hr, Administer over 15 Minutes, As needed, line care, line care after IVPB administration, Starting on 02/14/25 at 1732 sodium chloride 0.9 % infusion 20 mL/hr, intravenous, Continuous PRN, to maintain patency of lines, Starting on 02/14/25 at 1732 sodium chloride 0.9 % radiology injection (COMPLETED) 80 mL, intravenous, Once in imaging, pre/post contrast, Starting on Yomaira 02/16/25 at 1123, For 1 dose 1124 (Given - Provider: Yesy Castellon) Linked Groups Order Group 1: potassium chloride (K-TAB,KLOR-CON) CR tablet 30-40 mEqJump to med 30-40 mEq, oral, As needed, Potassium Supplementation, Starting on 02/14/25 at 1732, Progress to oral potassium replacement when patient tolerating oral intake. If dose administered, recheck potassium level 4 hours after last dose. For potassium level 3.4 to 3.8 mmol/L and GFR 30 mL/min or greater=30 mEq. For potassium level 3.1 to 3.3 mmol/L and GFR 30 mL/min or greater=40 mEq. For potassium level 3 mmol/L or less and GFR 30 mL/min or greater=50 mEq. Do not crush or chew. Or potassium chloride (KAYCIEL) 20 mEq/15 mL solution 30-40 mEqJump to med 30-40 mEq, oral, As needed, Potassium Supplementation, Starting on 02/14/25 at 1732, Progress to oral potassium replacement when patient tolerating oral intake. If dose administered, recheck potassium level 4 hours after last dose. For potassium level 3.4 to 3.8 mmol/L and GFR 30 mL/min or greater=30 mEq. For potassium level 3.1 to 3.3 mmol/L and GFR 30 mL/min or greater=40 mEq. For potassium level 3 mmol/L or less and GFR 30 mL/min or greater=50 mEq. Must dilute before use - Mix in 3-8 ounces of water or juice before administration When administering in feeding tube, flush before and after per policy and monitor potassium levels Or potassium chloride IVPB 10 mEq/100 mL in water (0.1 mEq/mL premix)Jump to med 10 mEq, intravenous, at 100 mL/hr, Administer over 60 Minutes, As needed, POTASSIUM REPLACEMENT, Starting on Thu02/14/25 at 1732, IV if unable to use oral/enteral with the current dosing strategies Potassium level 3 mmol/L or less administer Potassium Chloride 50 mEq Potassium level 3.1 to 3.3 mmol/L administer Potassium Chloride 40 mEq Potassium level 3.4 to 3.8 mmol/L administer Potassium Chloride 30 mEq Use central line when applicable. Recheck potassium level 1 hour after total IVPB infusion complete, With each potassium result continue the replacement orders as needed VESICANT (YELLOW) Infuse each 10 mEq over a minimum of 1 hour. FOR RECORDS PERTAINING TO PATIENTS WHO ARE [...] BE BASED ON THE PRIMARY CLINICAL RECORDS. [employer] provides no warranty or guarantee of the accuracy or completeness of information in this document.
== END 2025-04-19 10:49 | disposition home or self-care (01) ==
LOC: WC 10:48
PROVIDERS: PCP Family Medicine; Visit Provider Physician Assistant
DX: I87.312 Chronic venous hypertension (idiopathic) with ulcer of left lower extremity (principal); L97.321 Non-pressure chronic ulcer of left ankle limited to breakdown of skin; T87.89 Other complications of amputation stump; L89.620 Pressure ulcer of left heel, unstageable
CPT/HCPCS: 29580; A6213

== ENCOUNTER 2025-05-17 12:39 | Outpatient (OUT) | payer MEDICARE, SELFPAY ==
--- OUTSIDE RECORDS SUMMARY | 2025-05-17 12:42 | XMS_ITS | Encounter Summary ---
Author Organization [facility] tem Address [id number] [address] [place] [address] Care Team Providers Care Health Care Coordinator Name Role Phone Kamryn Rios MD Primary Care Provider [phone] Encounter Details Date Type Department Care Team (Late st Contact Info) Description 08/09/2019 Telephone [facility] [address] [place] [address] Mary Da Silva, MITCH Social [...] documented as of this encounter Care Teams Health Care Coordinator Relationship Specialty Start Date End Date Kamryn Rios MD [address], [address] [place] [address] PCP - General Internal Medicine 02/11/25 documented as of this encounter
--- OUTSIDE RECORDS SUMMARY | 2025-05-17 12:42 | XMS_ITS | Encounter Summary ---
Author Organization [facility] [employer] [facility] tem Address [id number] [address] [place] [address] Care Team Providers Care Capacity Management Specialist Name Role Phone Kamryn Rios MD Primary Care Provider Encounter Details Date Type Department Care Team (Late st Contact Info) Description 10/18/2019 Telephone [facility] [address] [place] [address] Mary Da Silva, MITCH Social [...] documented as of this encounter Care Teams Capacity Management Specialist Relationship Specialty Start Date End Date Kamryn Rios MD [address], [address] [place] [address] PCP - General Internal Medicine 02/11/25 documented as of this encounter
--- OUTSIDE RECORDS SUMMARY | 2025-05-17 12:42 | XMS_ITS | Encounter Summary ---
Author Organization [facility] tem Address [id number] [address] [place] [address] Care Team Providers Care Bag Sealer Name Role Phone Kamryn Rios MD Primary Care Provider [phone] Encounter Details Date Type Department Care Team (Late st Contact Info) Description 11/05/2020 Telephone [facility] [address] [place] [address] Mary Da Silva, MITCH Social [...] documented as of this encounter Care Teams Bag Sealer Relationship Specialty Start Date End Date Kamryn Rios MD [address], [address] [place] [address] PCP - General Internal Medicine 02/11/25 documented as of this encounter
--- OUTSIDE RECORDS SUMMARY | 2025-05-17 12:42 | XMS_ITS | Encounter Summary ---
Author Organization [facility] tem Address [id number] [address] [place] [address] Care Team Providers Care Smart Grid Engineer Name Role Phone Kamryn Rios MD Primary Care Provider [phone] Encounter Details Date Type Department Care Team (Late st Contact Info) Description 09/24/2020 Telephone [facility] [address] [place] [address] Mary Da Silva, MITCH Social [...] documented as of this encounter Care Teams Smart Grid Engineer Relationship Specialty Start Date End Date Kamryn Rios MD [address], [address] [place] [address] PCP - General Internal Medicine 02/11/25 documented as of this encounter
--- OUTSIDE RECORDS SUMMARY | 2025-05-17 12:42 | XMS_ITS | Patient Health Record ---
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) Active confirmed Problem Edema (047161243) Bilateral leg edema (R60.0) Active confirmed Problem Chronic foot ulcer, limited to breakdown of skin, right (L97.511) Active confirmed Problem Idiopathic chronic venous hypertension of both lower extremities with ulcer (I87.313) Active confirmed Problem 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 confirmed Problem Decubitus ulcer of left heel, stage 1 (L89.621) Active confirmed Problem 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) Active confirmed Problem Ankle ulcer (669358351) Non-pressure chronic ulcer of ankle, right, limited to breakdown of skin (L97.311) Active confirmed Problem Ankle ulcer (311558448) Ankle ulcer, right, limited to breakdown of skin (L97.311) Active confirmed Problem Ankle ulcer (239471261) Ankle ulcer, left, limited to breakdown of [...] exposed (L97.512) Active confirmed Problem Ankle ulcer (098158015) Non-healing ulcer of left ankle, limited to breakdown of skin (L97.321) Active confirmed Problem Pressure injury of right ankle, stage 2 (L89.512) Active confirmed Problem Chronic ulcer of left lower extremity with fat layer exposed (L97.922) Active confirmed Problem Chronic ulcer of right foot (disorder) (866136225914236 00) Chronic ulcer of right foot with fat layer exposed (L97.512) Active confirmed Plan Of Treatment No Information Insurance Providers Payer Name Payer Address Payer Phone Subscriber Number Group Number Insured Name Patient Relationship to Insured Coverage Start Date Coverage End Date [employer] MED[employer] ADV PLAN [address] [place] [address] [id number] [facility] Self - patient is the insured
--- OUTSIDE RECORDS SUMMARY | 2025-05-17 12:42 | XMS_ITS | Encounter Summary ---
Author Organization [facility] Address [address] [place] [address] Care Team Providers Care Tax Senior Associate Name Role Phone Ines Cole MD Primary Care Provider [phone] Suzi Moyer NP Unavailable [phone] Encounter Details Date Type Department Care Team (Late st Contact Info) Description 03/09/2024 Clinisync Result Encounter [facility] External Department Unsolicited Abraham Pimentel MD [address], [place] [id number] Social History Tobacco Use Types Packs/Day Years [...] friends or relatives? Patient declined 01/01/2024 Attends [employer] [facility] Not on file 01/01 Do you [...] place to sleep or slept in a fpc (including now)? Patient refused 01/01/2024 Sex and Gender Information Value Date Recorded Sex Assigned at Not on file Legal Sex Male 7:29 PM EDT Gender Identity Not on file Sexual Orientation Not on file documented as of this encounter Plan of Treatment Upcoming Encounters Date Type Department Care Team (Late st Contact Info) Description 09/25/2025 12:30 PM EDT Office Visit [facility] [address] [place] [address] Suzi Moyer NP [address] [place] [address] documented as of this encounter Procedures Procedure Name Priority Date/Time Associated Diagnosis Comments ECG 12-LEAD 03/09/2024 10:51 AM EDT documented in this encounter Results * ECG 12-LEAD (03/09/2024 10:51 AM EDT) Anatomical Region Laterality Modality Other 03/09/2024 10:5 1 AM EDT Narrative 03/10/2024 6:55 AM EDT The [address] [address] Electrocardiograph Report Signed Patient: KJ LEI MR#: [id number] : 1945 Acct:[id number] Age/Sex: 78 / M ADM Date: 03/09/24 Loc: PST Attending Dr: Abraham Pimentel M.D. Ordering Physician: Abraham Pimentel M.D. Date of Service: 03/09/24 Procedure(s): ECG 12 lead Accession Number(s): [id number] cc: The [facility] Test Date: 2024-03-09 Pat Name: KJ LEI Department: Room: - Gender: Male Non Garment Sewing Machine Operator: : 1945 Requested By: 1892 Order Number: [id number] Reading MD: NIK ANDRADE Measurements Intervals [place] Rate: 61 P: 67 FL: 208 QRS: 71 QRSD: 89 T: 35 QT: 416 QTc: 420 Interpretive Statements SINUS RHYTHM WITH OCCASIONAL SUPRAVENTRICULAR PREMATURE COMPLEXES Compared to ECG 12/03/2021 14:19:31 Possible ischemia no longer present Electronically Signed On 03-10-2024 6:54:59 EDT by NIK ANDRADE Dictated By: Nik Andrade D.O. Signed By: 03/10/24 0655 DD/ 1051 TD/TT: Administrative Director: Procedure Note Radiology, Radiologist, MD - 03/10/2024 [place] [address] Electrocardiograph Report Signed Patient: KJ LEI LMR#: [id number] : 1945cct:[id number] Age/Sex: 78 / MADM Date: 03/09/24 Loc: [facility] Attending Dr: Abraham Pimentel M.D. Ordering Physician: Abraham Pimentel M.D. Date of Service: 03/09/24 Procedure(s): ECG 12 lead Accession Number(s): [id number] cc: The [facility] Test Date: 2024-03-09 Pat Name: KJ LEI Department: Room: - Gender: Male Non Garment Sewing Machine Operator: : 1945 Requested By: 189 Order Number: [id number] Reading MD: NIK ANDRADE Measurements Intervals [place] Rate: 61 P: 67 FL: 208 QRS: 71 QRSD: 89 T: 35 QT: 416 QTc: 420 Interpretive Statements SINUS RHYTHM WITH OCCASIONAL SUPRAVENTRICULAR PREMATURE COMPLEXES Compared to ECG 12/03/2021 14:19:31 Possible ischemia no longer present Electronically Signed On 03-10-2024 6:54:59 EDT by NIK ANDRADE Dictated By: Nik Andrade D.O. Signed By:03/10/24 0655 DD/ 1051 TD/TT: Administrative Director: us Abraham Pimentel MD [facility] Final Resu lt documented in this encounter Visit Diagnoses Not on filedocumented in this encounter Additional Health Concerns Assessment Noted Time PHQ-9 Depression Total Score: 0 02/23/20 24 1:00 PM EDT documented as of this encounter Care Teams Tax Senior Associate Relationship Specialty Start Date End Date Ines Cole MD [address] [facility] [place], [place] [phone] PCP - General Family Medicine 12/17/23 Suzi Moyer NP [address] [facility] [place], [place] [address] Nurse Practitioner Family Medicine 12/17/23 documented as of this encounter
--- OUTSIDE RECORDS SUMMARY | 2025-05-17 12:42 | XMS_ITS | Encounter Summary ---
Author Organization [facility] [employer] [facility] tem Address [facility]-[id number] [address] [place] [address] Care Team Providers Care Special Needs Nanny Name Role Phone Kamryn Rios MD Primary Care Provider [phone] Reason for Visit * Reason Onset Date Comments Appointment 11/07/2020 reschedule Encounter Details Date Type Department Care Team (Late st Contact Info) Description 11/07/2020 Telephone [facility] [address] [place] [address] Josy Frank CNA Appointment (reschedule) Social History [...] documented as of this encounter Care Teams Special Needs Nanny Relationship Specialty Start Date End Date Kamryn Rios MD [address], [address] [place] [address] PCP - General Internal Medicine 02/11/25 documented as of this encounter
--- OUTSIDE RECORDS SUMMARY | 2025-05-17 12:42 | XMS_ITS | Encounter Summary ---
Author Organization [facility] [employer] [facility] tem Address [facility][id number] [address] [place] [address] Care Team Providers Care Software Applications Designer Name Role Phone Kamryn Rios MD Primary Care Provider [phone] Encounter Details Date Type Department Care Team (Late st Contact Info) Description 01/29/2021 Telephone [facility] [address] [place] [address] Mary Da Silva, MITCH Social [...] as of this encounter Care Teams Software Applications Designer Relationship Specialty Start Date End Date Kamryn Rios MD [address], [address] [place] [address] PCP - General Internal Medicine 02/11/25 documented as of this encounter
--- OUTSIDE RECORDS SUMMARY | 2025-05-17 12:42 | XMS_ITS | Encounter Summary ---
Author Organization [facility] [employer] [facility] tem Address [facility]-[id number] [address] [place] [address] Care Team Providers Care Allergy And Immunology Chief Name Role Phone Kamryn Rios MD Primary Care Provider [phone] Encounter Details Date Type Department Care Team (Late st Contact Info) Description 05/24/2019 Telephone [facility] [address] [place] [address] Mary Da Silva, MITCH Social [...] documented as of this encounter Care Teams Allergy And Immunology Chief Relationship Specialty Start Date End Date Kamryn Rios MD [address], [address] [place] [address] PCP - General Internal Medicine 02/11/25 documented as of this encounter
--- OUTSIDE RECORDS SUMMARY | 2025-05-17 12:42 | XMS_ITS | Encounter Summary ---
Author Organization [facility] [employer] [facility] tem Address [facility]-[id number] [address] [place] [address] Care Team Providers Care Elevator Constructor Supervisor Name Role Phone Kamryn Rios MD Primary Care Provider [phone] Encounter Details Date Type Department Care Team (Late st Contact Info) Description 09/05/2019 Telephone [facility] [address] [place] [address] Karyn Meneses, MITCH Social History [...] documented as of this encounter Care Teams Elevator Constructor Supervisor Relationship Specialty Start Date End Date Kamryn Rios MD [address], [address] [place] [address] PCP - General Internal Medicine 02/11/25 documented as of this encounter
--- OUTSIDE RECORDS SUMMARY | 2025-05-17 12:42 | XMS_ITS | Encounter Summary ---
Author Organization [facility] Address [address] [place] [address] Care Team Providers Care Resaw Carriage Operator Name Role Phone America Childs MD Primary Care Provider [phone] Suzi Moyer NP Unavailable [phone] Encounter Details Date Type Department Care [...] friends or relatives? Patient declined 01/01/2024 Attends Taoism Services Not on file 01/01 Do you belong to any clubs o r organizations such as bahai groups, unions, fraternal or athletic groups, or [...] Recorded Patient Health Questionnaire-2 Score 0 08/26/2023 [facility] - Occupational [...] place to sleep or slept in a nursing home (including now)? Patient refused 01/01/2024 Sex [...] PM EDT Office Visit [facility] [address] [place] [address] Suzi Moyer NP [address] [place], [place] [address] documented as of this encounter Procedures Procedure Name Priority Date/Time Associated Diagnosis Comments XR CHEST 2V 03/09/2024 1:07 PM EDT documented in this encounter Results * XR CHEST 2V (03/09/2024 1:07 PM EDT) Anatomical Region Laterality Modality Other 03/09/2024 1:07 PM EDT Narrative 03/09/2024 1:38 [place] [address] XRay Report Signed Patient: KJ LEI MR#: [id number] : 1945 Acct:[id number] Age/Sex: 78 / M ADM Date: 03/09/24 Loc: PST Attending Dr: Abraham Pimentel M.D. Ordering Physician: Abraham Pimentel M.D. Date of Service: 03/09/24 Procedure(s): XR chest 2V Accession Number(s): [id number] cc: AMEIRCA CHILDS ; Abraham Pimentel M.D. The [address] [address] Patient Name: KJ LEI MRN: [id number] date: 1945 Sex: M Assigned Patient Location: Current Patient Location: [place] Accession/Order Number: [id number] Exam Date: 03/09/2024 11:00 Report Date: 03/09/2024 [...] Signed By: 03/09/24 1338 DD/ 1307 TD/TT: Paint Factory Worker: Procedure Note Radiology, Radiologist, MD - 03/09/2024 [place] [address] XRay Report Signed Patient: KJ LEI LMR#: [id number] : 1945cct:[id number] Age/Sex: 78 / MADM Date: 03/09/24 Loc: [facility] Attending Dr: Abraham Pimentel M.D. Ordering Physician: Abraham Pimentel M.D. Date of Service: 03/09/24 Procedure(s): XR chest 2V Accession Number(s): [id number] cc: AMERICA CHILDS ; Abraham Pimentel M.D. The [address] [address] Patient Name: KJ LEI MRN: [id number] date: 1945 Sex: M Assigned Patient Location: Current Patient Location: [place] Accession/Order Number: [id number] Exam Date: 03/09/2024 11:00 Report Date: 03/09/2024 [...] M.D. Signed By:03/09/24 1338 DD/ 1307 TD/TT: Paint Factory Worker: us Generic External Data Provider [facility] Final Result documented in this encounter Visit Diagnoses Not on filedocumented in this encounter Additional Health Concerns Assessment Noted Time PHQ-9 Depression Total Score: 0 02/23/20 24 1:00 PM EDT documented as of this encounter Care Teams Resaw Carriage Operator Relationship Specialty Start Date End Date America Childs MD [address] [place], [place] [address] PCP - General Family Medicine 12/17/23 Suzi Moyer NP [address] [facility] [place] [address] Nurse Practitioner Family Medicine 12/17/23 documented as of this encounter
--- OUTSIDE RECORDS SUMMARY | 2025-05-17 12:42 | XMS_ITS | Encounter Summary ---
Author Organization [facility] tem Address [facility]-[id number] [address] [place] [address] Care Team Providers Care Transmitter Chief Name Role Phone Kamryn Rios MD Primary Care Provider [phone] Encounter Details Date Type Department Care Team (Late st Contact Info) Description 01/10/2021 Telephone [facility] [address] [place] [address] Mary Da Silva, MITCH Social [...] documented as of this encounter Care Teams Transmitter Chief Relationship Specialty Start Date End Date Kamryn Rios MD [address], [address] [place] [address] PCP - General Internal Medicine 02/11/25 documented as of this encounter
--- OUTSIDE RECORDS SUMMARY | 2025-05-17 12:42 | XMS_ITS | Encounter Summary ---
Author Organization [facility] tem Address [facility][id number] [address] [place] [address] Care Team Providers Care Garland Machine Operator Name Role Phone Kamryn Rios MD Primary Care Provider [phone] Encounter Details Date Type Department Care Team (Late st Contact Info) Description 08/24/2019 Telephone [facility] [address] [place] [address] Mary Da Silva, MITCH Social [...] documented as of this encounter Care Teams Garland Machine Operator Relationship Specialty Start Date End Date Kamryn Rios MD [address], [address] [place] [address] PCP - General Internal Medicine 02/11/25 documented as of this encounter
--- OUTSIDE RECORDS SUMMARY | 2025-05-17 12:42 | XMS_ITS | Encounter Summary ---
Author Organization [facility] Address [address] [place] [address] Care Team Providers Care Board Mill Supervisor Name Role Phone America Childs MD Primary Care Provider [phone] Suzi Moyer NP Unavailable [phone] Encounter Details Date Type Department Care Team (Late st Contact Info) Description 03/09/2024 Clinisync Result Encounter [facility] External Department Unsolicited Abraham Pimentel MD [address], [place] [id number] Social History Tobacco Use Types Packs/Day Years [...] friends or relatives? Patient declined 01/01/2024 Attends [employer] Services Not on file 01/01 Do you belong to any clubs o r organizations such as mandaeism groups, unions, fraternal or athletic groups, or [...] Recorded Patient Health Questionnaire-2 Score 0 08/26/2023 [facility] - Occupational [...] place to sleep or slept in a retirement (including now)? Patient refused 01/01/2024 Sex and Gender Information Value Date Recorded Sex Assigned at Not on file Legal Sex Male 7:29 PM EDT Gender Identity Not on file Sexual Orientation Not on file documented as of this encounter Plan of Treatment Upcoming Encounters Date Type Department Care Team (Late st Contact Info) Description 09/25/2025 12:30 PM EDT Office Visit [facility] [address] [place] [address] Suzi Moyer NP [address] [place] [address] documented as of this encounter Procedures Procedure Name Priority Date/Time Associated Diagnosis Comments VC EXT VENOUS REFLUX ANNE LMTD 03/09/2024 1:53 PM EDT documented in this encounter Results * VC EXT VENOUS REFLUX ANNE LMTD (03/09/2024 1:53 PM EDT) Anatomical Region Laterality Modality Other 03/09/2024 1:53 PM EDT Narrative 03/09/2024 1:54 PM EDT The [address] [address] Vein Report Signed Patient: KJ LEI MR#: [id number] : 1945 Acct:[id number] Age/Sex: 78 / M ADM Date: 03/09/24 Loc: VC Attending Dr: Abraham Pimentel M.D. Ordering Physician: Abraham Pimentel M.D. Date of Service: 03/09/24 Procedure(s): VC EXT Venous Reflux ANNE LMTD Accession Number(s): [id number] cc: AMERICA CHILDS ; Abraham Pimentel M.D. Patient Name: KJ LEI MR#: [id number] : 1945 Exam Date: 03/09/2024 Ordering Doctor: [...] medial thigh measures associated with proximal thigh cattle shipper measures 5.7mm with 0.5s reflux. Varicose vein [...] Compressibility: Normal. Flow: Moderate deep venous reflux. Engineer: No significant perforators. Tech Note: Previously [...] Signed By: 03/09/24 1354 DD/ 1353 TD/TT: Limehouse Worker: Procedure Note Radiology, Radiologist, MD - 03/09/2024 [place] [address] Vein Report Signed Patient: KJ LEI LMR#: [id number] : 7Acct:[id number] Age/Sex: 78 / MADM Date: 03/09/24 Loc: VC Attending Dr: Abraham Pimentel M.D. Ordering Physician: Abraham Pimentel M.D. Date of Service: 03/09/24 Procedure(s): VC EXT Venous Reflux ANNE LMTD Accession Number(s): [id number] cc: AMERICA CHILDS ; Abraham Pimentel M.D. Patient Name: KJ LEI MR#: [id number] : 1945 Exam Date: 03/09/2024 Ordering Doctor: [...] medial thigh measures associated with proximal thigh cattle shipper measures5.7mm with 0.5s reflux. Varicose vein proximal [...] Compressibility: Normal. Flow: Moderate deep venous reflux. Engineer: No significant perforators. Tech Note: Previously [...] M.D. Signed By:03/09/24 1354 DD/ 1353 TD/TT: Limehouse Worker: [facility] Cheyanne Pimentel MD [facility] Final Resu lt documented in this encounter Visit Diagnoses Not on filedocumented in this encounter Additional Health Concerns Assessment Noted Time PHQ-9 Depression Total Score: 0 02/23/20 24 1:00 PM EDT documented as of this encounter Care Teams Board Mill Supervisor Relationship Specialty Start Date End Date America Childs MD [address] [place] [address] PCP - General Family Medicine 12/17/23 Suzi Moyer NP [address] [place] [address] Nurse Practitioner Family Medicine 12/17/23 documented as of this encounter
--- OUTSIDE RECORDS SUMMARY | 2025-05-17 12:42 | XMS_ITS | Encounter Summary ---
Author Organization [facility] tem Address [facility]-[id number] [address] [place] [address] Care Team Providers Care Director Of Agriculture Name Role Phone Kamryn Rios MD Primary Care Provider [phone] Encounter Details Date Type Department Care Team (Late st Contact Info) Description 06/03/2019 Telephone [facility] [address] [place] [address] Mary Da Silva, MITCH Social [...] documented as of this encounter Care Teams Director Of Agriculture Relationship Specialty Start Date End Date Kamyrn Rios MD [address], [address] [place] [address] PCP - General Internal Medicine 02/11/25 documented as of this encounter
--- OUTSIDE RECORDS SUMMARY | 2025-05-17 12:42 | XMS_ITS | Clinical Summary ---
Author Organization [facility] Address [address] [place] [address] Care Team Providers Care Analyst Market Intelligence Name Role Phone Unavailable Primary Care Provider Unavailabl e Encounters Date Type Department Care Team Description 03/07/2025 Telephone [facility] [employer] [facility] Infectious Disease [address] [place] [address], [address] [place] [address] Jory Rios CNP from Last 3 Months Social History Tobacco Use Types Packs/Day Years Used Date Smoking Tobacco: Never Assessed Sex and Gender Information Value Date Recorded Sex Assigned at Not on file Legal Sex Male 12:01 AM EDT Gender Identity Not on file Sexual Orientation Not on file Plan of Treatment Health Maintenance Due Date Last Done Comments Medicare Annual Wellness (AWV) 1945 Depression Screening 1959 Adult Tetanus 1969 Fall Risk Screening 2012 COVID-19 Vaccine ( season) 2024 08/29/2024, 08/29/2024, 11/20/2021, Additional history exists Pneumococcal Vaccine: 50+ Years Completed 05/01/2016, 09/10/2015, 11/30/2005 Zoster Vaccines [...] on patient's age to complete this topic Insurance [employer] MEDICARE ADVANTAGE
--- OUTSIDE RECORDS SUMMARY | 2025-05-17 12:42 | XMS_ITS | Encounter Summary ---
Author Organization [facility] tem Address [facility]-[id number] [address] [place] [address] Care Team Providers Care Field Technician Name Role Phone Kamryn Rios MD Primary Care Provider [phone] Encounter Details Date Type Department Care Team (Late st Contact Info) Description 12/17/2020 Telephone [facility] [address] [place] [address] Mary Da Silva, MITCH Social [...] documented as of this encounter Care Teams Field Technician Relationship Specialty Start Date End Date Kamryn Rios MD [address], [address] [place] [address] PCP - General Internal Medicine 02/11/25 documented as of this encounter
--- OUTSIDE RECORDS SUMMARY | 2025-05-17 12:42 | XMS_ITS | Encounter Summary ---
Author Organization [facility] Address [address] [place] [address] Care Team Providers Care Extrusion Engineer Name Role Phone Ines Cole MD Primary Care Provider [phone] Suzi Moyer NP Unavailable Encounter Details Date Type Department Care Team (Late st Contact Info) Description 02/06/2024 Abstract [facility] [address] [place] [address] Ines Cole MD [address] [place], [place] [phone] Social History Tobacco Use Types Packs/Day Years [...] friends or relatives? Patient declined 01/01/2024 Attends Adventism Services Not on file 01/01 Do you belong to any clubs o r organizations such as orthodoxy groups, unions, fraternal or athletic groups, or [...] Recorded Patient Health Questionnaire-2 Score 0 08/26/2023 [facility] - Occupational [...] EDT Office Visit [facility] [address] [place] [address] Suzi Moyer NP [address] [place] [address] documented as of this encounter Visit Diagnoses Not on filedocumented in this encounter Care Teams Extrusion Engineer Relationship Specialty Start Date End Date Ines Cole MD [address] [facility] [place] [address] PCP - General Family Medicine 12/17/23 Suzi Moyer NP [address] [facility] [place] [address] Nurse Practitioner Family Medicine 12/17/23 documented as of this encounter
--- OUTSIDE RECORDS SUMMARY | 2025-05-17 12:42 | XMS_ITS | Encounter Summary ---
Author Organization [facility] Address [address] [place] [address] Care Team Providers Care Detail Maker And Fitter Name Role Phone Ines Cole MD Primary Care Provider [phone] Suzi Moyer NP Unavailable [phone] Encounter Details Date Type Department Care Team (Late st Contact Info) Description 02/06/2024 Abstract [facility] [address] [place] [address] Ines Cole MD [address] [place], [place] [id number] Social History Tobacco Use Types Packs/Day Years [...] friends or relatives? Patient declined 01/01/2024 Attends Caodaism Services Not on file 01/01 Do you belong to any clubs o r organizations such as faith groups, unions, fraternal or athletic groups, or [...] Recorded Patient Health Questionnaire-2 Score 0 08/26/2023 [facility] - Occupational [...] EDT Office Visit [facility] [address] [place] [address] Suzi Moyer NP [address] [place] [address] documented as of this encounter Visit Diagnoses Not on filedocumented in this encounter Care Teams Detail Maker And Fitter Relationship Specialty Start Date End Date Ines Cole MD [address] [facility] [place] [address] PCP - General Family Medicine 12/17/23 Suzi Moyer NP [address] [facility] [place] [address] Nurse Practitioner Family Medicine 12/17/23 documented as of this encounter
--- OUTSIDE RECORDS SUMMARY | 2025-05-17 12:42 | XMS_ITS | Encounter Summary ---
Author Organization [facility] Address [address] [place] [address] Care Team Providers Care Statement Request Clerk Name Role Phone Ines Cole MD Primary Care Provider [phone] Suzi Moyer NP Unavailable [phone] Encounter Details Date Type Department Care Team (Late st Contact Info) Description 06/01/2024 Abstract [facility] [address] [place] [address] Ines Cole MD [address] [place], [place] [address] Social History Tobacco Use Types Packs/Day Years [...] any clubs o r organizations such as religious groups, unions, fraternal or athletic groups, or [...] Health Questionnaire-2 Score 0 08/26/2023 [facility]at ional [facility] - Occupational [...] EDT Office Visit [facility] [address] [place] [address] Suzi Moyer NP [address] [place] [address] documented as of this encounter Visit Diagnoses Not on filedocumented in this encounter Additional Health Concerns Assessment Noted Time PHQ-9 Depression Total Score: 0 02/23/20 24 1:00 PM EDT documented as of this encounter Care Teams Statement Request Clerk Relationship Specialty Start Date End Date Ines Cole MD [address] [place] [address] PCP - General Family Medicine 12/17/23 Suzi Moyer NP [address] [place] [address] Nurse Practitioner Family Medicine 12/17/23 documented as of this encounter
--- OUTSIDE RECORDS SUMMARY | 2025-05-17 12:42 | XMS_ITS | Encounter Summary ---
Author Organization [facility] tem Address [facility] [place]-[id number] [address] [place] [address] Care Team Providers Care Bell Tier Name Role Phone Kamryn Rios MD Primary Care Provider [phone] Encounter Details Date Type Department Care Team (Late st Contact Info) Description 10/11/2020 Telephone [facility] [address] [place] [address] Mary Da Silva, MITCH Social [...] documented as of this encounter Care Teams Bell Tier Relationship Specialty Start Date End Date Kamryn Rios MD [address], [address] [place] [address] PCP - General Internal Medicine 02/11/25 documented as of this encounter
--- OUTSIDE RECORDS SUMMARY | 2025-05-17 12:42 | XMS_ITS | Encounter Summary ---
Author Organization [facility] tem Address [facility]-[id number] [address] [place] [address] Care Team Providers Care Electrical Wiring Lineman Name Role Phone Kamryn Rios MD Primary Care Provider [phone] Encounter Details Date Type Department Care Team (Late st Contact Info) Description 09/20/2019 Telephone [facility] [address] [place] [address] Mary Da Silva, MITCH [...] documented as of this encounter Care Teams Electrical Wiring Lineman Relationship Specialty Start Date End Date Kamryn Rios MD [address], [address] [place] [address] PCP - General Internal Medicine 02/11/25 documented as of this encounter
--- OUTSIDE RECORDS SUMMARY | 2025-05-17 12:42 | XMS_ITS | Encounter Summary ---
Author Organization [facility] Address [address] [place] [address] Care Team Providers Care Medical Administrative Specialist Name Role Phone America Childs MD Primary Care Provider [phone] Suzi Moyer NP Unavailable [phone] Encounter Details Date Type Department Care [...] friends or relatives? Patient declined 01/01/2024 Attends Restorationist Services Not on file 01/01 Do you [...] Recorded Patient Health Questionnaire-2 Score 0 08/26/2023 [facility] Occupat ional Health - Occupational [...] PM EDT Office Visit [facility] [address] [place] [address] Suzi Moyer NP [address] [place], [place] [address] documented as of this encounter Procedures Procedure Name Priority Date/Time Associated Diagnosis Comments SEGMENTAL BLOOD PRESSURE 04/05/2024 9:19 AM EDT documented in this encounter Results * SEGMENTAL BLOOD PRESSURE (04/05/2024 9:19 AM EDT) Anatomical Region Laterality Modality Radiographic Chanelle ging 04/05/2024 9:19 AM EDT Narrative 04/05/2024 10:50 [place] [address] Cardiology Report Signed Patient: KJ LEI MR#: [id number] : 1945 Acct:[id number] Age/Sex: 78 / M ADM Date: 04/05/24 Loc: CARD Attending Dr: Abraham Pimentel M.D. Ordering Physician: Abraham Pimentel M.D. Date of Service: 04/05/24 Procedure(s): CA segmental UE or LE ANNE Accession Number(s): [id number] cc: AMERICA CHILDS ; Abraham Pimentel M.D. [facility] Test Date: 2024-04-05 Pat Name: KJ LEI Department: Room: - Gender: Male Packer Inspector: : 1945 Requested By: 1890 Order Number: [id number] Reading MD: NIK ANDRADE Interpretive Statements Monophasic [...] D.O. Signed By: 04/05/24224904/05/242249 DD/ 8 TD/TT: Heat Treat Puller: Procedure Note Radiology, Radiologist, MD - 04/05/2024 [place] [address] Cardiology Report Signed Patient: KJ LEI LMR#: [id number] : 1945cct:[id number] Age/Sex: 78 / MADM Date: 04/05/24 Loc: CARD Attending Dr: Abraham Pimentel M.D. Ordering Physician: Abraham Pimentel M.D. Date of Service: 04/05/24 Procedure(s): CA segmental UE or LE ANNE Accession Number(s): [id number] cc: AMERICA CHILDS ; Abraham Pimentel M.D. [facility] Test Date: 2024-04-05 Pat Name: KJ LEI Department: Room: - Gender: Male Packer Inspector: : 1945 Requested By: 1890 Order Number: [id number] Reading MD: NIK ANDRADE Interpretive Statements Monophasic [...] Andrade D.O. Signed By:04/05/24224904/05/242249 DD/ 8 TD/TT: Heat Treat Puller: us Generic External Data Provider IMG XR PROCEDURES Final Result documented in this encounter Visit Diagnoses Not on filedocumented in this encounter Additional Health Concerns Assessment Noted Time PHQ-9 Depression Total Score: 0 02/23/20 24 1:00 PM EDT documented as of this encounter Care Teams Medical Administrative Specialist Relationship Specialty Start Date End Date America Childs MD [address] [facility] [place] [address] PCP - General Family Medicine 12/17/23 Suzi Moyer NP [address] [facility] [address] [place], [place] [address] Nurse Practitioner Family Medicine 12/17/23 documented as of this encounter
--- OUTSIDE RECORDS SUMMARY | 2025-05-17 12:42 | XMS_ITS | Referral Summary ---
Author Organization [facility] Address [address] [place] [address] Care Team Providers Care Circus Agent Name Role Phone Unavailable Primary Care Provider Unavailabl e Encounters Date Type Department Care Team Description 03/07/2025 Telephone [facility] Infectious Disease [address] [place] [address], [address] [place] [address] Jory Rios CNP from Last 3 Months Social History Tobacco Use Types Packs/Day Years Used Date Smoking Tobacco: Never Assessed Sex and Gender Information Value Date Recorded Sex Assigned at Not on file Legal Sex Male 12:01 AM EDT Gender Identity Not on file Sexual Orientation Not on file Plan of Treatment Not on file Insurance [employer]
--- OUTSIDE RECORDS SUMMARY | 2025-05-17 12:42 | XMS_ITS | Clinical Summary ---
Author Organization [facility] Address [address] [place], [place] [address] Care Team Providers Care Lead Inspector Name Role Phone Quan Guerra Odell Primary Care Provider [phone] Allergies No known active allergies Medications bisoprolol-hydro [...] EDT) Glucose 87 65 - 100 mg/dL [facility] BUN 19 10 - 25 mg/dL [facility] Creatinine 0.65(L) 0.70 - 1.40 mg/dL [facility] Sodium 136 135 - 146 mmol/L [facility] Potassium 4.3 3.5 - 5.0 mmol/L [facility] Chloride 98 98 - 110 mmol/L [facility] CO2 26 23 - 32 mmol/L [facility] Anion Gap 12 0 - 15 mmol/L [facility] Calcium 9.3 8.5 - 10.5 mg/dL [facility] eGFR- >60 [facility] eGFR-All Other Races >60 . [facility] Comment: eGFR (Estimated GFR) Units of [...] EDT us Alberto Ngo LABORATORY Final Result [facility] [address] [place] [address] from Last 3 Months or Most Recently Relevant to Health Maintenance Insurance Care Teams Lead Inspector Relationship Specialty Start Date End Date Quan Guerra PCP - General Family Medicine 09/11/14
--- OUTSIDE RECORDS SUMMARY | 2025-05-17 12:42 | XMS_ITS | Encounter Summary ---
Author Organization [facility] tem Address [facility]-[id number] [address] [place] [address] Care Team Providers Care Maintenance Assistant Name Role Phone Kamryn Rios MD Primary Care Provider [phone] Encounter Details Date Type Department Care Team (Late st Contact Info) Description 11/13/2020 Telephone [facility] [address] [place] [address] Mary Da Silva, MITCH Social [...] documented as of this encounter Care Teams Maintenance Assistant Relationship Specialty Start Date End Date Kamryn Rios MD [address], [address] [place] [address] PCP - General Internal Medicine 02/11/25 documented as of this encounter
--- OUTSIDE RECORDS SUMMARY | 2025-05-17 12:42 | XMS_ITS | Encounter Summary ---
Author Organization [facility] [employer] [facility] tem Address [facility][id number] [address] [place] [address] Care Team Providers Care Education Assistant Name Role Phone Kamryn Rios MD Primary Care Provider [phone] Encounter Details Date Type Department Care Team (Late st Contact Info) Description 09/05/2019 Telephone [facility] [address] [place] [address] Karyn Meneses, MITCH Social History [...] documented as of this encounter Care Teams Education Assistant Relationship Specialty Start Date End Date Kamryn Rios MD [address], [address] [place] [address] PCP - General Internal Medicine 02/11/25 documented as of this encounter
--- OUTSIDE RECORDS SUMMARY | 2025-05-17 12:43 | XMS_ITS | Encounter Summary ---
Author Organization [facility] tem Address [facility][id number] [address] [place] [address] Care Team Providers Care Physician Practice Coordinator Name Role Phone Kamryn Rios MD Primary Care Provider [phone] Encounter Details Date Type Department Care Team (Late st Contact Info) Description 07/12/2019 Telephone [facility] [address] [place] [address] Mary Da Silva, MITCH Social [...] documented as of this encounter Care Teams Physician Practice Coordinator Relationship Specialty Start Date End Date Kamryn Rios MD [address], [address] [place] [address] PCP - General Internal Medicine 02/11/25 documented as of this encounter
--- OUTSIDE RECORDS SUMMARY | 2025-05-17 12:43 | XMS_ITS | Encounter Summary ---
Author Organization [facility] [employer] [facility] tem Address [facility] [place] [place][id number] [address] [place] [address] Care Team Providers Care Outbound Sales Representative Name Role Phone Kamryn Rios MD Primary Care Provider [phone] Encounter Details Date Type Department Care Team (Late st Contact Info) Description 02/12/2021 Telephone [facility] [address] [place] [address] Mary D aSilva, MITCH Social History Tobacco Use Types Packs/Day [...] documented as of this encounter Care Teams Outbound Sales Representative Relationship Specialty Start Date End Date Kamryn Rios MD [address], [address] [place] [address] PCP - General Internal Medicine 02/11/25 documented as of this encounter
--- OUTSIDE RECORDS SUMMARY | 2025-05-17 12:43 | XMS_ITS | Encounter Summary ---
Author Organization [facility] tem Address [facility] [place] [id number] [address] [place] [address] Care Team Providers Care Field Kiln Burner Name Role Phone Kamryn Rios MD Primary Care Provider [phone] Encounter Details Date Type Department Care Team (Late st Contact Info) Description 07/19/2019 Telephone [facility] [address] [place] [address] Mary Da Silva, MITCH Social [...] as of this encounter Care Teams Field Kiln Burner Relationship Specialty Start Date End Date Kamryn Rios MD [address], [address] [place] [address] PCP - General Internal Medicine 02/11/25 documented as of this encounter
--- OUTSIDE RECORDS SUMMARY | 2025-05-17 12:43 | XMS_ITS | Encounter Summary ---
Author Organization [employer] tem Address [facility][id number] [address] [place] [address] Care Team Providers Care Caramel Cutter Helper Name Role Phone Kamryn Rios MD Primary Care Provider [phone] Encounter Details Date Type Department Care Team (Late st Contact Info) Description 05/09/2024 Orders Only [facility] [address] [place] [address] Nadia Kelsey CMA Venous ulcer-leg syndrome, bilateral [...] documented as of this encounter Care Teams Caramel Cutter Helper Relationship Specialty Start Date End Date Kamryn Rios MD [address], [address] [place] [address] PCP - General Internal Medicine 02/11/25 documented as of this encounter
--- OUTSIDE RECORDS SUMMARY | 2025-05-17 12:43 | XMS_ITS | Encounter Summary ---
Author Organization [employer] tem Address [facility][id number] [address] [place] [address] Care Team Providers Care Manager Collection Name Role Phone Kamryn Rios MD Primary Care Provider [phone] Encounter Details Date Type Department Care Team (Late st Contact Info) Description 05/31/2021 Orders Only [facility] [address] [place] [address] Ref Prov, [place] [address] Social History Tobacco Use Types Packs/Day Years [...] as of this encounter Care Teams Manager Collection Relationship Specialty Start Date End Date Kamryn Rios MD [address], [address] [place] [address] PCP - General Internal Medicine 02/11/25 documented as of this encounter
--- OUTSIDE RECORDS SUMMARY | 2025-05-17 12:43 | XMS_ITS | Encounter Summary ---
Author Organization [facility] Address [address] [place] [address] Care Team Providers Care Bag Repairer Name Role Phone Ines Cole MD Primary Care Provider [phone] Suzi Moyer NP Unavailable [phone] Encounter Details Date Type Department Care Team (Late st Contact Info) Description 03/11/2025 Telephone [facility] [address] [place] [address] Ines Cole MD [address] [place] [address] Social History Tobacco Use Types [...] friends or relatives? Patient declined 01/01/2024 Attends Christianity Services Not on file 01/01 Do you belong to any clubs o r organizations such as orthodox groups, unions, fraternal or athletic groups, [...] Recorded Patient Health Questionnaire-2 Score 0 08/26/2023 [facility] of Occupat ional Health - [...] Ida calling because pt was discharged from [facility] this morning, they did not have an order to remove the catheter that the pt has. Ida states that the pt normally straight caths at home and he would like to continue to do so, so she needs an order to remove the cath. Callback number [phone] documented in this encounter Plan of Treatment Upcoming Encounters Date Type Department Care Team (Late st Contact Info) Description 09/25/2025 12:30 PM EDT Office Visit [facility] [address] [place] [address] Suzi Moyer NP [address] [facility] [place] [address] documented as of this encounter Visit Diagnoses Not on filedocumented in this encounter Additional Health Concerns Assessment Noted Time PHQ-9 Depression Total Score: 0 02/23/20 24 1:00 PM EDT documented as of this encounter Care Teams Bag Repairer Relationship Specialty Start Date End Date Ines Cole MD [address] [facility] [place] [address] PCP - General Family Medicine 12/17/23 Suzi Moyer NP [address] [facility] [place], [place] [address] Nurse Practitioner Family Medicine 12/17/23 documented as of this encounter
--- OUTSIDE RECORDS SUMMARY | 2025-05-17 12:43 | XMS_ITS | Encounter Summary ---
Author Organization [facility] tem Address [facility]-[id number] [address] [place] [address] Care Team Providers Care Chocolate Packer Name Role Phone Kamryn Rios MD Primary Care Provider [phone] Encounter Details Date Type Department Care Team (Late st Contact Info) Description 05/09/2019 Telephone [facility] [address] [place] [address] Mary Da Silva, MITCH Social [...] documented as of this encounter Care Teams Chocolate Packer Relationship Specialty Start Date End Date Kamryn Rios MD [address], [address] [place] [address] PCP - General Internal Medicine 02/11/25 documented as of this encounter
--- OUTSIDE RECORDS SUMMARY | 2025-05-17 12:43 | XMS_ITS | Encounter Summary ---
Author Organization [facility] Address [address] [place] [address] Care Team Providers Care Trawl Net Maker Name Role Phone Ines Cole MD Primary Care Provider [phone] Suzi Moyer NP Unavailable Encounter Details Date Type Department Care Team (Late st Contact Info) Description 03/28/2025 Results Follow-Up [facility] [address] [place] [address] Suzi Moyer NP [address] [place], [place] [address] Social History Tobacco Use Types Packs/Day Years [...] friends or relatives? Patient declined 01/01/2024 Attends Confucianist Services Not on file 01/01 Do you belong to any clubs o r organizations such as nondenominational groups, unions, fraternal or athletic groups, or [...] Recorded Patient Health Questionnaire-2 Score 0 08/26/2023 [facility] Occupat ional Health - [...] place to sleep or slept in a snf (including now)? Patient refused 01/01/2024 Sex and [...] EDT Office Visit [facility] [address] [place] [address] Suzi Moyer NP [address] [place] [address] documented as of this encounter Visit Diagnoses Not on filedocumented in this encounter Additional Health Concerns Assessment Noted Time PHQ-9 Depression Total Score: 0 02/23/20 24 1:00 PM EDT documented as of this encounter Care Teams Trawl Net Maker Relationship Specialty Start Date End Date Ines Cole MD [address] [facility] [place] [address] PCP - General Family Medicine 12/17/23 Suzi Moyer NP [address] [facility] [place] [address] Nurse Practitioner Family Medicine 12/17/23 documented as of this encounter
--- OUTSIDE RECORDS SUMMARY | 2025-05-17 12:43 | XMS_ITS | Encounter Summary ---
Author Organization [facility] tem Address [facility][id number] [address] [place] [address] Care Team Providers Care Turf Farm Worker Name Role Phone Kamryn Rios MD Primary Care Provider Encounter Details Date Type Department Care Team (Late st Contact Info) Description 04/04/2021 Telephone [facility] [address] [place] [address] Mary Da Silva, MITCH Social [...] documented as of this encounter Care Teams Turf Farm Worker Relationship Specialty Start Date End Date Kamryn Rios MD [address], [address] [place] [address] PCP - General Internal Medicine 02/11/25 documented as of this encounter
--- OUTSIDE RECORDS SUMMARY | 2025-05-17 12:43 | XMS_ITS | Encounter Summary ---
Author Organization [facility] tem Address [facility][id number] [address] [place] [address] Care Team Providers Care Sas Programmer Remote Name Role Phone Kamryn Rios MD Primary Care Provider [phone] Encounter Details Date Type Department Care Team (Late st Contact Info) Description 09/10/2020 Telephone [facility] [address] [place] [address] Mary Da Silva, MITCH Social [...] documented as of this encounter Care Teams Sas Programmer Remote Relationship Specialty Start Date End Date Kamryn Rios MD [address], [address] [place] [address] PCP - General Internal Medicine 02/11/25 documented as of this encounter
--- OUTSIDE RECORDS SUMMARY | 2025-05-17 12:43 | XMS_ITS | Encounter Summary ---
Author Organization [facility] tem Address [facility]-[id number] [address] [place] [address] Care Team Providers Care Spice Grinder Name Role Phone Kamryn Rios MD Primary Care Provider [phone] Encounter Details Date Type Department Care Team (Late st Contact Info) Description 09/14/2020 Telephone [facility] [address] [place] [address] Josy Frank CNA Social History [...] documented as of this encounter Care Teams Spice Grinder Relationship Specialty Start Date End Date Kamryn Rios MD [address], [address] [place] [address] PCP - General Internal Medicine 02/11/25 documented as of this encounter
--- OUTSIDE RECORDS SUMMARY | 2025-05-17 12:43 | XMS_ITS | Encounter Summary ---
Author Organization [facility] tem Address [facility][id number] [address] [place] [address] Care Team Providers Care Answering Service Operator Name Role Phone Kamryn Rios MD Primary Care Provider [phone] Encounter Details Date Type Department Care Team (Late st Contact Info) Description 04/22/2019 Telephone [facility] [address] [place] [address] Mary Da Silva, MITCH Social [...] documented as of this encounter Care Teams Answering Service Operator Relationship Specialty Start Date End Date Kamryn Rios MD [address], [address] [place] [address] PCP - General Internal Medicine 02/11/25 documented as of this encounter
--- OUTSIDE RECORDS SUMMARY | 2025-05-17 12:43 | XMS_ITS | Patient Health Record ---
Author Organization [facility] Address [facility] [place] [address] Care Team Providers Care Digital Campaign Specialist Name Role Phone Naif Sagastume Unavailable [phone] Reason For Referral No Information Plan Of Treatment No Information Insurance Providers Payer Name Payer Address Payer Phone Subscriber Number Group Number Insured Name Patient Relationship to Insured Coverage Start Date Coverage End Date [place] [employer] and Blue Shield [address] [place] [address] [id number] [id number] Kj Mora Self - patient is the insured
--- OUTSIDE RECORDS SUMMARY | 2025-05-17 12:43 | XMS_ITS | Encounter Summary ---
Author Organization [facility] tem Address [facility][id number] [address] [place] [address] Care Team Providers Care Gate Guard Name Role Phone Kamryn Rios MD Primary Care Provider [phone] Encounter Details Date Type Department Care Team (Late st Contact Info) Description 04/12/2019 Telephone [facility] [address] [place] [address] Mary Da Silva, MITCH Social [...] documented as of this encounter Care Teams Gate Guard Relationship Specialty Start Date End Date Kamryn Rios MD [address], [address] [place] [address] PCP - General Internal Medicine 02/11/25 documented as of this encounter
--- OUTSIDE RECORDS SUMMARY | 2025-05-17 12:43 | XMS_ITS | Encounter Summary ---
Author Organization [facility] tem Address [facility]-[id number] [address] [place] [address] Care Team Providers Care Federal Mediator Name Role Phone Kamryn Rios MD Primary Care Provider [phone] Encounter Details Date Type Department Care Team (Late st Contact Info) Description 08/14/2020 Telephone [facility] [address] [place] [address] Mary Da Silva, MITCH Social [...] documented as of this encounter Care Teams Federal Mediator Relationship Specialty Start Date End Date Kamryn Rios MD [address], [address] [place] [address] PCP - General Internal Medicine 02/11/25 documented as of this encounter
--- OUTSIDE RECORDS SUMMARY | 2025-05-17 12:43 | XMS_ITS | Encounter Summary ---
Author Organization [facility] [facility] tem Address [facility] [place][id number] [address] [place] [address] Care Team Providers Care Business Development Executive Name Role Phone Kamryn Rios MD Primary Care Provider [phone] Encounter Details Date Type Department Care Team (Late st Contact Info) Description 02/25/2021 Telephone [facility] [address] [place] [address] Mary Da Silva, MITCH Social [...] documented as of this encounter Care Teams Business Development Executive Relationship Specialty Start Date End Date Kamryn Rios MD [address], [address] [place] [address] PCP - General Internal Medicine 02/11/25 documented as of this encounter
--- OUTSIDE RECORDS SUMMARY | 2025-05-17 12:43 | XMS_ITS | Encounter Summary ---
Author Organization [facility] [employer] [facility] tem Address [facility][id number] [address] [place] [address] Care Team Providers Care Gin Feeder Name Role Phone Kamryn Rios MD Primary Care Provider [phone] Encounter Details Date Type Department Care Team (Late st Contact Info) Description 04/02/2020 Telephone [facility] [address] [place] [address] Mary Da Silva, MITCH Social [...] documented as of this encounter Care Teams Gin Feeder Relationship Specialty Start Date End Date Kamryn Rios MD [address], [address] [place] [address] PCP - General Internal Medicine 02/11/25 documented as of this encounter
--- OUTSIDE RECORDS SUMMARY | 2025-05-17 12:43 | XMS_ITS | Encounter Summary ---
Author Organization [facility] tem Address [facility][id number] [address] [place] [address] Care Team Providers Care Perishable Fruit Inspector Name Role Phone Kamryn Rios MD Primary Care Provider [phone] Encounter Details Date Type Department Care Team (Late st Contact Info) Description 07/16/2020 Telephone [facility] [address] [place] [address] Mary Da Silva, MITCH Social [...] documented as of this encounter Care Teams Perishable Fruit Inspector Relationship Specialty Start Date End Date Kamryn Rios MD [address], [address] [place] [address] PCP - General Internal Medicine 02/11/25 documented as of this encounter
--- OUTSIDE RECORDS SUMMARY | 2025-05-17 12:43 | XMS_ITS | Encounter Summary ---
Author Organization [employer] tem Address [facility]-[id number] [address] [place] [address] Care Team Providers Care Instructional Technology Facilitator Name Role Phone Kamryn Rios MD Primary Care Provider [phone] Encounter Details Date Type Department Care Team (Late st Contact Info) Description 01/21/2025 Orders Only [facility] [address] [place] [address] Transcribe, Orders Support User Pain (Primary Dx) Social History Tobacco Use Types Packs/Day Years Used Date Smoking Tobacco: Never Smokeless Tobacco: Never Alcohol Use Standard Drinks/Week Comments Yes 0 (1 standard drink = 0.6 oz pur e alcohol) occasionally [employer] Answer Date Recorded In the past [...] documented as of this encounter Care Teams Instructional Technology Facilitator Relationship Specialty Start Date End Date Kamryn Rios MD [address], [address] [place] [address] PCP - General Internal Medicine 02/11/25 documented as of this encounter
--- OUTSIDE RECORDS SUMMARY | 2025-05-17 12:43 | XMS_ITS | Clinical Summary ---
Author Organization [facility] Healthcare Address [address] [place] [address] Care Team Providers Care Speech Writer Name Role Phone Ines Cole MD Primary Care Provider Suzi Moyer NP Unavailable [phone] Allergies No known active allergies Medications [...] 24 Active cholecalciferol (Vitamin D-3) 1.25 MG (97670 UT) capsule Take 50,000 Units by mouth [...] carvedilol (Coreg) 3.125 MG tabletIndications: Primary hypertension Take 1 tablet (3.125 mg) by mouth in the morning and 1 tablet (3.125 mg) in the evening. Take with meals. 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 Take 1 tablet (325 mg) by mouth Daily 90 tablet 1 03/27/20 25 Active atorvastatin (Lipitor) 40 MG tabletIndications: Mixed hyperlipidemia Take 1 tablet (40 mg) by mouth Daily 90 tablet 1 03/27/20 25 Active furosemide (Lasix) 20 MG tabletIndications: Primary hypertension Take 2 tablets (40 mg) by mouth [...] Recurrent major depressive disorder, in partial remission Take 1 tablet (20 mg) by mouth Daily 90 tablet 1 03/27/20 25 Active potassium chloride CR (K-Tab) 20 MEQ ER tabletIndications: Hypokalemia TAKE 1 TABLET BY MOUTH DAILY (DO NOT CRUSH CHEW OR SPLIT) 90 tablet 1 03/31/20 25 Active Active Problems Problem Noted Date Diagnosed Date 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 02/15/2025 Surgical wound present 02/15/2025 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 species 02/12/2025 Sepsis 02/11/2025 Localized edema 02/01/2025 Muscle weakness 02/01/2025 Below-knee amputation of right lower extremity 0 01/30/2025 Traumatic below-knee amputation 01/30/2025 Difficulty walking 01/30/2025 Unable to ambulate [...] ity due to chronic peripheral venous hypertension 08/26/2023 Assessment & Plan (02/24/2024 8:05 PM [...] EDT): Stable Coronary artery 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 [address] Chanelle Fernandez RN 05/03/2025 Patient Outreach [facility] [address] [place] [address] Chanelle Fernandez RN 04/20/2025 Patient Outreach [facility] [address] [place] [address] Chanelle Fernandez RN 04/18/2025 Patient Outreach [facility] [address] [place] [address] Chanelle Fernandez RN 04/17/2025 Telephone [facility] [facility] [place] [address] Ines Cole MD 04/10/2025 Telephone [facility] [address] [facility] [place] [address] Ines Cole MD 04/10/2025 Patient Outreach [place] [address] [place] [address] Chanelle Fernandez RN 04/03/2025 Patient Outreach [address] [place] [address] Chanelle Fernandez RN 03/31/[address] [place] [address] Suzi Moyer NP Hypokalemia 03/29/2025 Patient Outreach [address] [place] [address] Chanelle Fernandez RN 03/28/2025 Results Follow-Up [facility] [address] [place] [address] Suzi Moyer NP 03/28/2025 Patient Outreach [address] [place] [address] Chanelle Fernandez RN 03/27/2025 2:30 PM EDT Office Visit [facility] [address] 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 [address] Chanelle Fernandez RN 03/15/[address] [facility] [address] [place] [address] Ines Cole MD 03/14/2025 Patient Outreach [facility] [address] [place] [address] Chanelle Fernandez, MITCH 03/11/2025 Telephone [facility] [address] [place] [address] Ines Cole MD 02/23/2025 Patient Outreach [facility] [address] [place] [address] Chanelle Fernandez, MITCH 02/17/2025 Patient Outreach [facility] [place] [address] [place] [address] Rafia Gonzalez LPN from Last 3 Months Immunizations Immunization Administration [...] friends or relatives? Patient declined 01/01/2024 Attends Ep[employer] Services Not on file 01/01 Do you [...] Recorded Patient Health Questionnaire-2 Score 0 08/26/2023 [facility] of Occupat ional Health - Occupational Stress [...] PM EDT Office Visit [facility] [address] [place] [address] Suzi Moyer NP [address] [place] [address] Health Maintenance Due Date Last Done Comments [...] Routine 03/27/2025 2:40 PM EDT Primary hypertension OCCULT BLOOD X 1, STOOL Routine 03/05/2024 [...] Performing Organization Information Site ID: QPT Name: [facility] Address: [address] [place] [address], [address] [place] [phone] Director: Maninder Alves MD Suzi Moyer NP LAB BLOOD ORDERABLES Final Resu lt [facility] * Vitamin D 25 hydroxy (03/27/2025 2:40 PM EDT) Pathologist [facility] VITAMIN D,25-OH,TOTAL,IA 50 30 - 100 ng/mL [facility] Comment: Vitamin D Status 25-OH Vitamin D: Deficiency: <20 ng/mL Insufficiency: 20 - 29 ng/mL Optimal: > or = 30 ng/mL For 25-OH Vitamin D testing on patients on D2-supplementation and patients for whom quantitation of D2 and D3 fractions is required, the QuestAssureD(TM) 25-OH VIT D, (D2,D3), LC/MS/MS is recommended: order code [id number] (patients >2yrs). See Note 1 Note 1 For additional information, please refer to http://education.MAPPING.eLifestyles/faq/AQQ245 (This link is being provided for informational/ educational purposes only.) Blood Venous blood specimen / Unknown 03/27/2025 2:40 PM EDT 03/27/2025 2:41 PM EDT Narrative Resulting Agency Comment Performing Organization Information Site ID: QPT Name: [facility] [facility] Address: [address] [place] [address], [address] [place] [phone] Director: Maninder Alves MD Suzi Moyer NP [...] Performing Organization Information Site ID: QPT Name: [employer] [facility] [facility] Address: [address] [facility], [address] [place] [phone] Director: Maninder Alves MD us Suzi Moyer [...] Performing Organization Information Site ID: QPT Name: [facility] [employer] [facility] [facility] Address: [address] [place] [address], [address] [place] [phone] Director: Maninder Alves MD us Suzi Moyer NP LAB BLOOD ORDERABLES Final Resu lt [facility] * (ABNORMAL) Occult blood x 1, stool (03/05/2024 8:22 AM EDT) MICRO NUMBER [id number] [facility] SPECIMEN QUALITY Adequate [facility] SOURCE INSURE [...] INCORRECT, PLEASE CONTACT CLIENT SERVICES. PHONE NUMBER: [phone] Stool Rectal contents / Unknown 03/04/2024 1:17 PM EDT Narrative [facility] - 03/05/2024 8:22 AM EDT SPLIT 02/23/2024 FROM [id number] Resulting Agency Comment Performing Organization Information Site ID: QPT Name: [facility] Address: [address] [place] [address], [address] [place] [phone] Director: Maninder Alves MD Suzi Moyer NP LAB BODY FLUIDS AND STOOLS [employer] Final Result [facility] * Colonoscopy (04/10/2014 12:00 PM EDT) Anatomical Region Laterality Modality Endoscopy 04/10/2014 12:0 0 PM EDT Narrative 04/10/2014 12:00 PM EDT PERFORMED AT [facility] LOCATION:[id number] Procedure Note CONVERSION, GENERIC - 04/16/2023 PERFORMED AT [facility] LOCATION:[id number] Quan Guerra ENDOSCOPY PROCEDURE ORDERABLES Final Result from Last 3 Months or Most Recently Relevant to Health Maintenance Insurance [facility] MEDICARE ADVANTAGE Advance Directives Documents on File Type Date Recorded Patient Television Announcer Expl anation Advance Directives and Living Will 09/15/2018 2001-05-13 Living Wi ll Advance Directives and Living Will 09/15/2018 2001-05-13 [facility] e POA Care Teams Speech Writer Relationship Specialty Start Date End Date Ines Cole MD [address] [place] [address] PCP - General Family Medicine 12/17/23 Suzi Moyer NP [address] [place] [address] Nurse Practitioner Family Medicine 12/17/23
--- OUTSIDE RECORDS SUMMARY | 2025-05-17 12:43 | XMS_ITS | Encounter Summary ---
Author Organization [facility] Healthcare Address [address] [place] [address] Care Team Providers Care Liner Assembler Name Role Phone Ines Cole MD Primary Care Provider [phone] Suzi Moyer NP Unavailable [phone] Encounter Details Date Type Department Care Team (Late st Contact Info) Description 05/09/2025 Patient Outreach [facility] [address] [place] [address] Chanelle Fernandez, MITCH [address] [place] [address] Social History Tobacco Use Types Packs/Day Years [...] friends or relatives? Patient declined 01/01/2024 Attends Sikhism Services Not on file 01/01 Do you [...] Recorded Patient Health Questionnaire-2 Score 0 08/26/2023 [facility] of Occupat ional Health - [...] Progress Notes * Chanelle Fernandez RN - 05/09/2025 1:14 PM EDT Received phone call from Almaz Dolan with [facility], she states she is placing the call with Papo Sanchez in her office, concerns regarding pt being unable to care for him self in the home, pt unable to transfer himself in or out of bed, pt has placed over 80 phone calls to the ems for help. Discussed medical services pt [facility], pt had been paying for a private aide once a week but unclear if this is still occurring. Discussed that only services that would be available to pt would be private pay. Pt is wanting an overbed trapeze installed, this option is costly and is not ment for pt to use alone. Discussed having pt talk with assisted living facilities to see what his options are, but has been resistance to nursing facilities dt cost. Almaz requesting statement from provider that pt is not physically capable of caring for himself in the home safely. [facility] discussed with tristin Ellison to schedule appt for this if needed. Discussed with Suzi CRUZ, she saw pt last 03/28. Lm for Almaz at [facility] to see if last ov note would be suffice. May 10, 2025 8:32 AM Chanelle Muse from [facility] and returned call and lm yesterday afternoon. Called [facility] this morning, Almaz is not available. Left a detailed message for call back, could fax 03/28 ov to [facility]ps to see if it could be used, or if a more recent visit is needed we could schedule pt in office or do a home visit with [facility] if pt cannot come to office per Suzi. documented in this encounter Plan of Treatment Upcoming Encounters Date Type Department Care Team (Late st Contact Info) Description 09/25/2025 12:30 PM EDT Office Visit [facility] [address] [place] [address] Suzi Moyer NP [address] [place] [address] documented as of this encounter Visit Diagnoses Diagnosis Primary hypertension- Primary Unspecified essential hypertension Incomplete paraplegia (HCC) documented in this encounter Additional Health Concerns Assessment Noted Time PHQ-9 Depression Total Score: 0 02/23/20 24 1:00 PM EDT documented as of this encounter Care Teams Liner Assembler Relationship Specialty Start Date End Date Ines Cole MD [address] [place] [address] PCP - General Family Medicine 12/17/23 Suzi Moyer NP [address] [place] [address] Nurse Practitioner Family Medicine 12/17/23 documented as of this encounter
--- OUTSIDE RECORDS SUMMARY | 2025-05-17 12:43 | XMS_ITS | Encounter Summary ---
Author Organization [facility] [employer] [facility] tem Address [facility][id number] [address] [place] [address] Care Team Providers Care Social Secretary Name Role Phone Kamryn Rios MD Primary Care Provider [phone] Encounter Details Date Type Department Care Team (Late st Contact Info) Description 07/25/2019 Telephone [facility] [address] [place] [address] Mary Da Silva, MITCH Social [...] documented as of this encounter Care Teams Social Secretary Relationship Specialty Start Date End Date Kamryn Rios MD [address] [place] [address] PCP - General Internal Medicine 02/11/25 documented as of this encounter
--- OUTSIDE RECORDS SUMMARY | 2025-05-17 12:43 | XMS_ITS | Encounter Summary ---
Author Organization [facility] tem Address [facility]-[id number] [address] [place] [address] Care Team Providers Care Concrete Smoother Name Role Phone Kamryn Rios MD Primary Care Provider [phone] Encounter Details Date Type Department Care Team (Late st Contact Info) Description 01/19/2019 Telephone [facility] [address] [place] [address] Josy Frank CNA Social History [...] documented as of this encounter Care Teams Concrete Smoother Relationship Specialty Start Date End Date Kamryn Rios MD [address], [address] [place] [address] PCP - General Internal Medicine 02/11/25 documented as of this encounter
--- OUTSIDE RECORDS SUMMARY | 2025-05-17 12:43 | XMS_ITS | Encounter Summary ---
Author Organization [facility] Address [address] [place] [address] Care Team Providers Care Lace Weaver Name Role Phone Ines Cole MD Primary Care Provider [phone] Suzi Moyer NP Unavailable [phone] Encounter Details Date Type Department Care Team (Late st Contact Info) Description 12/26/2024 Abstract [facility] [address] [place] [address] Ines Cole MD [address] [place] [address] Social History Tobacco Use Types [...] friends or relatives? Patient declined 01/01/2024 Attends Voodoo Services Not on file 01/01 Do you belong to any clubs o r organizations such as mu-ism groups, unions, fraternal or athletic groups, or [...] Patient Health Questionnaire-2 Score 0 08/26/2023 [facility] of Occupat ional Health - Occupational [...] EDT Office Visit [facility] [address] [place] [address] Suzi Moyer NP [address] [place] [address] documented as of this encounter Visit Diagnoses Not on filedocumented in this encounter Additional Health Concerns Assessment Noted Time PHQ-9 Depression Total Score: 0 02/23/20 24 1:00 PM EDT documented as of this encounter Care Teams Lace Weaver Relationship Specialty Start Date End Date Ines Cole MD [address] [place] [address] PCP - General Family Medicine 12/17/23 Suzi Moyer NP [address] [place] [address] Nurse Practitioner Family Medicine 12/17/23 documented as of this encounter
--- OUTSIDE RECORDS SUMMARY | 2025-05-17 12:43 | XMS_ITS | Encounter Summary ---
Author Organization [facility] tem Address [facility]-[id number] [address] [place] [address] Care Team Providers Care Research Dairy Farm Supervisor Name Role Phone Kamryn Rios MD Primary Care Provider [phone] Encounter Details Date Type Department Care Team (Late st Contact Info) Description 08/04/2019 Telephone [facility] [address] [place] [address] Mary Da Silva, MITCH Social [...] documented as of this encounter Care Teams Research Dairy Farm Supervisor Relationship Specialty Start Date End Date Kamryn Rios MD [address], [address] [place] [address] PCP - General Internal Medicine 02/11/25 documented as of this encounter
--- OUTSIDE RECORDS SUMMARY | 2025-05-17 12:43 | XMS_ITS | Encounter Summary ---
Author Organization [facility] tem Address [facility] [id number] [address] [place] [address] Care Team Providers Care Revit Drafter Name Role Phone Kamryn Rios MD Primary Care Provider [phone] Encounter Details Date Type Department Care Team (Late st Contact Info) Description 12/27/2019 Telephone [facility] [address] [place] [address] Mary Da Silva, MITCH Social [...] documented as of this encounter Care Teams Revit Drafter Relationship Specialty Start Date End Date Kamryn Rios MD [address], [address] [place] [address] PCP - General Internal Medicine 02/11/25 documented as of this encounter
--- OUTSIDE RECORDS SUMMARY | 2025-05-17 12:43 | XMS_ITS | Encounter Summary ---
Author Organization [facility] tem Address [facility]-[id number] [address] [place] [address] Care Team Providers Care Youth Care Specialist Name Role Phone Kamryn Rios MD Primary Care Provider [phone] Encounter Details Date Type Department Care Team (Late st Contact Info) Description 02/21/2020 Telephone [facility] [address] [place] [address] Mary Da Silva, MITCH Social [...] documented as of this encounter Care Teams Youth Care Specialist Relationship Specialty Start Date End Date Kamryn Rios MD [address], [address] [place] [address] PCP - General Internal Medicine 02/11/25 documented as of this encounter
--- OUTSIDE RECORDS SUMMARY | 2025-05-17 12:43 | XMS_ITS | Encounter Summary ---
Author Organization [employer] Address [facility][id number] [address] [place] [address] Care Team Providers Care Remnant Sorter Name Role Phone Kmaryn Riso MD Primary Care Provider [phone] Encounter Details Date Type Department Care Team (Late st Contact Info) Description 04/18/2024 Orders Only [facility] [address] [place] [address] Ref Prov, [place] [address] Social History Tobacco Use Types Packs/Day Years [...] documented as of this encounter Care Teams Remnant Sorter Relationship Specialty Start Date End Date Kamryn Rios MD [address], [address] [place] [address] PCP - General Internal Medicine 02/11/25 documented as of this encounter
--- OUTSIDE RECORDS SUMMARY | 2025-05-17 12:43 | XMS_ITS | Encounter Summary ---
Author Organization [facility] [employer] Formerly [facility] tem Address [facility][id number] [address] [place] [address] Care Team Providers Care Film Editor Supervisor Name Role Phone Kamryn Rios MD Primary Care Provider [phone] Encounter Details Date Type Department Care Team (Late st Contact Info) Description 03/26/2021 Telephone [facility] [address] [place] [address] Mary Da Silva, MITCH Social [...] documented as of this encounter Care Teams Film Editor Supervisor Relationship Specialty Start Date End Date Kamryn Rios MD [address], [address] [place] [address] PCP - General Internal Medicine 02/11/25 documented as of this encounter
--- OUTSIDE RECORDS SUMMARY | 2025-05-17 12:43 | XMS_ITS | Encounter Summary ---
Author Organization [facility] [employer] [facility] tem Address [facility][id number] [address] [place] [address] Care Team Providers Care Pure Culture Operator Name Role Phone Kamryn Rios MD Primary Care Provider [phone] Encounter Details Date Type Department Care Team (Late st Contact Info) Description 03/26/2021 Telephone [facility] [address] [place] [address] Mary Da Silva, MITCH Social [...] documented as of this encounter Care Teams Pure Culture Operator Relationship Specialty Start Date End Date Kamryn Rios MD [address], [address] [place] [address] PCP - General Internal Medicine 02/11/25 documented as of this encounter
--- OUTSIDE RECORDS SUMMARY | 2025-05-17 12:43 | XMS_ITS | Encounter Summary ---
Author Organization [facility] tem Address [facility][id number] [address] [place] [address] Care Team Providers Care Jewel Hole Gauger Name Role Phone Kamryn Rios MD Primary Care Provider [phone] Encounter Details Date Type Department Care Team (Late st Contact Info) Description 11/29/2019 Telephone [facility] [address] [place] [address] Mary Da Silva, MITCH Social [...] documented as of this encounter Care Teams Jewel Hole Gauger Relationship Specialty Start Date End Date Kamryn Rios MD [address], [address] [place] [address] PCP - General Internal Medicine 02/11/25 documented as of this encounter
--- OUTSIDE RECORDS SUMMARY | 2025-05-17 12:43 | XMS_ITS | Encounter Summary ---
Author Organization [facility] Address [address] [place] [address] Care Team Providers Care Big Machine Consultant Name Role Phone Ines Cole MD Primary Care Provider [phone] Suzi Moyer NP Unavailable [phone] Encounter Details Date Type Department Care Team (Late st Contact Info) Description 03/15/2025 Abstract [facility] [address] [place] [address] Ines Cole MD [address] [place], [place] [id number] Social History Tobacco Use Types Packs/Day Years [...] any clubs o r organizations such as yazdanism groups, unions, fraternal or athletic groups, or [...] Recorded Patient Health Questionnaire-2 Score 0 08/26/2023 [facility] Occupat ional Health - Occupational [...] EDT Office Visit [facility] [address] [place] [address] Suzi Moyer NP [address] [place] [address] documented as of this encounter Visit Diagnoses Not on filedocumented in this encounter Additional Health Concerns Assessment Noted Time PHQ-9 Depression Total Score: 0 02/23/20 24 1:00 PM EDT documented as of this encounter Care Teams Big Machine Consultant Relationship Specialty Start Date End Date Ines Cole MD [address] [place] [address] PCP - General Family Medicine 12/17/23 Suzi Moyer NP [address] [place] [address] Nurse Practitioner Family Medicine 12/17/23 documented as of this encounter
--- OUTSIDE RECORDS SUMMARY | 2025-05-17 12:43 | XMS_ITS | Encounter Summary ---
Author Organization [facility] [employer] [facility] tem Address [id number] [address] [place] [address] Care Team Providers Care Political Science Faculty Member Name Role Phone Kamryn Rios MD Primary Care Provider [phone] Encounter Details Date Type Department Care Team (Late st Contact Info) Description 01/23/2020 Telephone [facility] [address] [place] [address] Mary Da Silva, MITCH Social [...] documented as of this encounter Care Teams Political Science Faculty Member Relationship Specialty Start Date End Date Kamrny Rios MD [address], [address] [place] [address] PCP - General Internal Medicine 02/11/25 documented as of this encounter
--- OUTSIDE RECORDS SUMMARY | 2025-05-17 12:43 | XMS_ITS | Encounter Summary ---
Author Organization [facility] Address [address] [place] [address] Care Team Providers Care Fountain Brush Assembler Name Role Phone Ines Cole MD Primary Care Provider [phone] Suzi Moyer NP Unavailable [phone] Encounter Details Date Type Department Care Team (Late st Contact Info) Description 06/01/2024 Abstract [facility] [address] [place] [address] Ines Cole MD [address] [place], [place] [id number] Social History Tobacco Use Types Packs/Day Years [...] friends or relatives? Patient declined 01/01/2024 Attends [employer] Services Not on file 01/01 Do you belong to any clubs o r organizations such as gnosticist groups, unions, fraternal or athletic groups, or [...] Recorded Patient Health Questionnaire-2 Score 0 08/26/2023 [facility] Occupat ional Health - Occupational Stress [...] place to sleep or slept in a assisted (including now)? Patient refused 01/01/2024 Sex and [...] EDT Office Visit [facility] [address] [place] [address] Suzi Moyer NP [address] [place] [address] documented as of this encounter Visit Diagnoses Not on filedocumented in this encounter Additional Health Concerns Assessment Noted Time PHQ-9 Depression Total Score: 0 02/23/20 24 1:00 PM EDT documented as of this encounter Care Teams Fountain Brush Assembler Relationship Specialty Start Date End Date Ines Cole MD [address] [place] [address] PCP - General Family Medicine 12/17/23 Suzi Moyer NP [address] [place] [address] Nurse Practitioner Family Medicine 12/17/23 documented as of this encounter
--- OUTSIDE RECORDS SUMMARY | 2025-05-17 12:43 | XMS_ITS | Encounter Summary ---
Author Organization [facility] tem Address [facility][id number] [address] [place] [address] Care Team Providers Care Mock Up Maker Name Role Phone Kamryn Rios MD Primary Care Provider [phone] Encounter Details Date Type Department Care Team (Late st Contact Info) Description 03/28/2019 Telephone [facility] [address] [place] [address] Mary Da Silva, MITCH Social [...] documented as of this encounter Care Teams Mock Up Maker Relationship Specialty Start Date End Date Kamryn Rios MD [address], [address] [place] [address] PCP - General Internal Medicine 02/11/25 documented as of this encounter
--- OUTSIDE RECORDS SUMMARY | 2025-05-17 12:43 | XMS_ITS | Encounter Summary ---
Author Organization [facility] tem Address [id number] [address] [place] [address] Care Team Providers Care Cessation Systems Outreach Specialist Name Role Phone Kamryn Rios MD Primary Care Provider [phone] Encounter Details Date Type Department Care Team (Late st Contact Info) Description 04/03/2021 Telephone [facility] [address] [place] [address] Josy Frank CNA Social History [...] documented as of this encounter Care Teams Cessation Systems Outreach Specialist Relationship Specialty Start Date End Date Kamryn Rios MD [address], [address] [place] [address] PCP - General Internal Medicine 02/11/25 documented as of this encounter
--- OUTSIDE RECORDS SUMMARY | 2025-05-17 12:43 | XMS_ITS | Encounter Summary ---
Author Organization [facility] Address [address] [place] [address] Care Team Providers Care Resident Care Manager Name Role Phone Ines Cole MD Primary Care Provider [phone] Suzi Moyer NP Unavailable [phone] Reason for Visit * Reason Comments Med Refill Encounter Details Date Type Department Care Team (Late st Contact Info) Description 08/24/2024 Refill [facility] [address] [place] [address] Kerri Le, DO [address] [facility] [address] [place] [address] Hypokalemia Social History Tobacco Use [...] Recorded Patient Health Questionnaire-2 Score 0 08/26/2023 [facility] Occupat ional [facility] - Occupational Stress Questionnaire Answer Date Recorded [...] place to sleep or slept in a detention (including now)? Patient refused 01/01/2024 Sex and [...] EDT Office Visit [facility] [address] [place] [address] Suzi Moyer NP [address] [place] [address] documented as of this encounter Visit Diagnoses Diagnosis Hypokalemia Hypopotassemia documented in this encounter Additional Health Concerns Assessment Noted Time PHQ-9 Depression Total Score: 0 02/23/20 24 1:00 PM EDT documented as of this encounter Care Teams Resident Care Manager Relationship Specialty Start Date End Date Ines Cole MD [address] [facility] [place], [place] [address] PCP - General Family Medicine 12/17/23 Suzi Moyer NP [address] [place] [id number] Nurse Practitioner Family Medicine 12/17/23 documented as of this encounter
--- OUTSIDE RECORDS SUMMARY | 2025-05-17 12:44 | XMS_ITS | Encounter Summary ---
Author Organization [facility] Address [address] [place] [address] Care Team Providers Care Weight Guesser Name Role Phone Kerri Le DO Unavailable [phone] Kerri Le DO Primary Care Provider [phone] Ines Cole MD Primary Care Provider Suzi Moyer STONE GANG SAWYER Unavailable [phone] Encounter Details Date Type Department Care Team (Late Contact Info) Description 09/22/2023 Abstract [facility] [address] [place] [address] Kerri Le DO [address] [address] Social History Tobacco Use Types Packs/Day [...] PM EDT Office Visit [facility] [address] [place] [address] Suzi Moyer NP [address] [place], [place] [address] documented as of this encounter Visit Diagnoses Not on filedocumented in this encounter Care Teams Weight Guesser Relationship Specialty Start Date End Date Kerri Le DO [address] [facility] [place] [address] [facility] [place] [address] PCP - Shoshana LUNA 04/30/23 10/29/23 Kerri Le DO 1715 [facility] [address] [place] [address] PCP - General Family Medicine 05/21/23 12/16/23 Ines Cole MD [address] [place] [address] PCP - General Family Medicine 12/17/23 Suzi Moyer NP [address] [place] [address] Nurse Practitioner Family Medicine 12/17/23 documented as of this encounter
--- OUTSIDE RECORDS SUMMARY | 2025-05-17 12:44 | XMS_ITS | Encounter Summary ---
Author Organization [facility] Address [address] [place] [address] Care Team Providers Care Foreclosure Home Inspector Name Role Phone Kerri Le DO Unavailable [phone] Mimi, Kerri Chappell DO Primary Care Provider Ines Cole MD Primary Care Provider [phone] Suzi Moyer NP Unavailable [phone] Encounter Details Date Type Department Care Team (Late st Contact Info) Description 08/25/2023 Abstract [facility] [address] [address] Heriberto Leee Ta DO [address] [facility] [address] [place] [address] Social History Tobacco Use Types [...] EDT Office Visit [facility] [address] [facility] [place] [address] Suzi Moyer NP [address] [place] [address] documented as of this encounter Visit Diagnoses Not on filedocumented in this encounter Care Teams Foreclosure Home Inspector Relationship Specialty Start Date End Date Kerri Le DO 1715 [facility] 200 [facility] [place] [address] PCP - Shoshana LUNA 04/30/23 10/29/23 Kerri Le DO 1715 [facility] [address] [place] [address] PCP - General Family Medicine 05/21/23 12/16/23 Ines Cole MD [address] [place], [place] [address] PCP - General Family Medicine 12/17/23 Suzi Moyer NP [address] [place] [address] Nurse Practitioner Family Medicine 12/17/23 documented as of this encounter
--- OUTSIDE RECORDS SUMMARY | 2025-05-17 12:44 | XMS_ITS | Encounter Summary ---
Author Organization [facility] Address [address] [facility] [place] [address] Care Team Providers Care Construction Pit Worker Name Role Phone Kerri Le Primary Care Provider [phone] Ines Cole MD Primary Care Provider [phone] Suzi Moyer [facility] DIRECTOR Unavailable [phone] Encounter Details Date Type Department Care Team (Late st Contact Info) Description 11/24/2023 Abstract [facility] [address] [place] [address] Kerri Le DO [address] [id number] Social History Tobacco Use Types Packs/Day Years [...] PM EDT Office Visit [facility] [address] [place] [address] Suzi Moyer NP [address] [place] [address] documented as of this encounter Visit Diagnoses Not on filedocumented in this encounter Care Teams Construction Pit Worker Relationship Specialty Start Date End Date Kerri Le DO PCP - General Family Medicine 05/21/23 12/16/23 Ines Cole MD [address] [place], [place] [address] PCP - General Family Medicine 12/17/23 Suzi Moyer NP [address] [place], [place] [address] Nurse Practitioner Family Medicine 12/17/23 documented as of this encounter
--- OUTSIDE RECORDS SUMMARY | 2025-05-17 12:44 | XMS_ITS | Encounter Summary ---
Author Organization [facility] Address [address] [place] [address] Care Team Providers Care Utility Accounts Director Name Role Phone Kerri Le DO Unavailable [phone] Kerri Le DO Primary Care Provider Ines Cole MD Primary Care Provider Suzi Moyer POLICE SERGEANT PRECINCT Unavailable [phone] Encounter Details Date Type Department Care Team (Late Contact Info) Description 09/02/2023 Abstract [facility] [address] [place] [address] Kerri Le DO [address] [address] Social History Tobacco Use Types [...] PM EDT Office Visit [facility] [address] [place] [address] Suzi Moyer NP [address] [place], [place] [address] documented as of this encounter Visit Diagnoses Not on filedocumented in this encounter Care Teams Utility Accounts Director Relationship Specialty Start Date End Date Kerri Le DO 1715 [facility] [place] [address] [facility] [place] [address] PCP - Shoshana LUNA 04/30/23 10/29/23 Kerri Le DO 1715 [facility] [address] [place] [address] PCP - General Family Medicine 05/21/23 12/16/23 Ines Cole MD [address] [place] [address] PCP - General Family Medicine 12/17/23 Suzi Moyer NP [address] [place] [address] Nurse Practitioner Family Medicine 12/17/23 documented as of this encounter
--- OUTSIDE RECORDS SUMMARY | 2025-05-17 12:44 | XMS_ITS ---
Author Organization [facility] Address [address] [place] [address] Care Team Providers Care Russian Teacher Name Role Phone Ines Cole MD Primary Care Provider [phone] Suzi Moyer NP Unavailable [phone] Chronic Care Management (CCM) Status:Enrolled (Active) Start date:04/16/2023 Enrollment date:04/16/2023 Overview 12/16/23, 10:28 AM - Chanelle Fernandez RN- Patient gives verbal consent to be enrolled in CCM Programand understands there could be a bill for this service. Case Team Name Relationship Phone Chanelle Fernandez RN(Responsible Staff) Care Manage r RN [phone] Continued Care and Services Coordination
--- OUTSIDE RECORDS SUMMARY | 2025-05-17 12:44 | XMS_ITS | Encounter Summary ---
Author Organization [facility] Address [address] [place] [address] Care Team Providers Care Street Light Repairer Helper Name Role Phone Ines Cole MD Primary Care Provider [phone] Suzi Moyer NP Unavailable [phone] Encounter Details Date Type Department Care Team (Late st Contact Info) Description 05/03/2025 Patient Outreach [facility] [address] [place] [address] Chanelle Fernandez, MICTH [address] [place] [address] Social History Tobacco Use Types Packs/Day Years [...] friends or relatives? Patient declined 01/01/2024 Attends [employer] Services Not on file 01/01 Do you belong to any clubs o r organizations such as baptism groups, unions, fraternal or athletic groups, or [...] Recorded Patient Health Questionnaire-2 Score 0 08/26/2023 [facility] of Occupat ional Health - [...] Progress Notes * Chanelle Fernandez RN - 05/03/2025 12:36 PM EDT Received call today from Sherie with [employer]. She is still working with pt on getting him either more help in the home or a lift. Discussed that pt was approved for mamie lift from [facility] but was not thestyle that pt wants. Pt is wanting a lift that can be used by himself. Discussed that [facility]cm is not aware of any lift systems that are intended for the pt to use solely themselves. Would need someone there for safety. Also the style that pt is looking for are expensive and not covered by medicare. [facility] she provided pt with a list of aides from [employer]. She will continue to call with updates. documented in this encounter Plan of Treatment Upcoming Encounters Date Type Department Care Team (Late st Contact Info) Description 09/25/2025 12:30 PM EDT Office Visit [facility] [address] [place] [address] Suzi Moyer NP [address] [place] [address] documented as of this encounter Visit Diagnoses Diagnosis Primary hypertension- Primary Unspecified essential hypertension Incomplete paraplegia (HCC) documented in this encounter Additional Health Concerns Assessment Noted Time PHQ-9 Depression Total Score: 0 02/23/20 24 1:00 PM EDT documented as of this encounter Care Teams Street Light Repairer Helper Relationship Specialty Start Date End Date Ines Cole MD [address] [place], [place] [address] PCP - General Family Medicine 12/17/23 Suzi Moyer NP [address] [place], [place] [address] Nurse Practitioner Family Medicine 12/17/23 documented as of this encounter
--- OUTSIDE RECORDS SUMMARY | 2025-05-17 12:44 | XMS_ITS | Encounter Summary ---
Author Organization [facility] Address [address] [place] [address] Care Team Providers Care Amr Physician Name Role Phone Mimi Kerri Chappell DO Unavailable [phone] Kerri Le DO Primary Care Provider Ines Cole MD Primary Care Provider [phone] Suzi Moyer CLINICAL MICROBIOLOGIST Unavailable [phone] Encounter Details Date Type Department Care Team (Late st Contact Info) Description 06/26/2023 Abstract [facility] [address] [place] [address] Kerri Le DO 1716 [facility] 200 [place] [address] Social History Tobacco Use Types [...] PM EDT Office Visit [facility] [address] [place] [address] Suzi Moyer NP [address] [place], [place] [address] documented as of this encounter Visit Diagnoses Not on filedocumented in this encounter Care Teams Amr Physician Relationship Specialty Start Date End Date Kerri Le DO 1715 [facility] [address] [place] [phone] PCP - Shoshana LUNA 04/30/23 10/29/23 Kerri Le DO 1715 [facility] [address] [place] [phone] PCP - General Family Medicine 05/21/23 12/16/23 Ines Cole MD [address] [place] [address] PCP - General Family Medicine 12/17/23 Suzi Moyer NP [address] [facility] [place] [address] Nurse Practitioner Family Medicine 12/17/23 documented as of this encounter
--- OUTSIDE RECORDS SUMMARY | 2025-05-17 12:44 | XMS_ITS | Encounter Summary ---
Author Organization [facility] Address [address] [place] [address] Care Team Providers Care Product Introduction Manager Name Role Phone Mimi Kerri Chappell DO Unavailable [phone] Kerri Le DO Primary Care Provider Ines Cole MD Primary Care Provider [phone] Suzi Moyer BASTING PULLER Unavailable [phone] Encounter Details Date Type Department Care Team (Late st Contact Info) Description 08/11/2023 Abstract [facility] [address] [place] [address] Kerri Le DO 1717 [facility] 200 [place] [address] Social History Tobacco Use Types [...] PM EDT Office Visit [facility] [address] [place] [address] Suzi Moyer NP [address] [place], [place] [address] documented as of this encounter Visit Diagnoses Not on filedocumented in this encounter Care Teams Product Introduction Manager Relationship Specialty Start Date End Date Kerri Le DO 1715 [facility] [address] [place] [phone] PCP - Shoshana LUNA 04/30/23 10/29/23 Kerri Le DO 1715 [facility] [address] [place] [phone] PCP - General Family Medicine 05/21/23 12/16/23 Ines Cole MD [address] [place] [address] PCP - General Family Medicine 12/17/23 Suzi Moyer NP 1479 [facility] [place] [address] Nurse Practitioner Family Medicine 12/17/23 documented as of this encounter
--- OUTSIDE RECORDS SUMMARY | 2025-05-17 12:44 | XMS_ITS | Encounter Summary ---
Author Organization [facility] Address [address] [place] [address] Care Team Providers Care Knot Picker Cloth Name Role Phone Mimi Kerri Chappell DO Unavailable [phone] Kerri Le DO Primary Care Provider Ines Cole MD Primary Care Provider [phone] Suzi Moyer LUG LOADER Unavailable [phone] Encounter Details Date Type Department Care Team (Late st Contact Info) Description 04/30/2023 Abstract [facility] [address] [place] [address] Kerri eL DO 171 [facility] 200 [place] [address] Social History Tobacco Use Types [...] PM EDT Office Visit [facility] [address] [place] [address] Suzi Moyer NP [address] [place], [place] [address] documented as of this encounter Visit Diagnoses Not on filedocumented in this encounter Care Teams Knot Picker Cloth Relationship Specialty Start Date End Date Kerri Le DO 1715 [facility] [address] [place] [phone] PCP - Shoshana LUNA 04/30/23 10/29/23 Kerri Le DO 1715 [facility] [address] [place] [phone] PCP - General Family Medicine 05/21/23 12/16/23 Ines Cole MD [address] [place] [address] PCP - General Family Medicine 12/17/23 Suzi Moyer NP [address] [facility] [place] [address] Nurse Practitioner Family Medicine 12/17/23 documented as of this encounter
== END 2025-05-17 12:40 | disposition home or self-care (01) ==
LOC: WC 12:39
PROVIDERS: PCP Family Medicine; Visit Provider Podiatrist Foot & Ankle Surgery
DX: I87.312 Chronic venous hypertension (idiopathic) with ulcer of left lower extremity (principal); L97.321 Non-pressure chronic ulcer of left ankle limited to breakdown of skin; T87.89 Other complications of amputation stump; L97.812 Non-pressure chronic ulcer of other part of right lower leg with fat layer exposed; L89.624 Pressure ulcer of left heel, stage 4
CPT/HCPCS: 97605